=== PATIENT | female | born 1945 | race Caucasian/White ===

== ENCOUNTER 2017-12-27 15:25 | Inpatient (IN) | payer OTHER ==
--- OUTSIDE RECORDS SUMMARY | 2017-12-27 15:28 | XMS REPORT | Clinical Summary ---
:1945 Author Organization [facility] Address [address] [place] [address] Care Team Providers Name Role Phone Asaf Btaes MD Primary Care Provider Allergies Active Allergy Reactions Severity Noted Date Comments Hydrocodone Hives High 06/20/2013 itchy Morphine Rash Low 03/06/2017 Medications Medication Sig Dispensed Refills Start Date End Date Status pramipexole Take 1 mg by 0 Active (MIRAPEX) 1 MG mouth nightly. tablet rOPINIRole (REQUIP) TK 1 T PO QHS 3 12/27/2016 Active 0.5 MG tablet multivitamin Take 1 tablet 0 Active (THERAGRAN) tablet by mouth daily. diazePAM (VALIUM) 5 0 11/25/2017 Active MG tablet oxyCODone 0 11/25/2017 Active (ROXICODONE) 10 MG tablet venlafaxine XR 0 09/25/2017 Active (EFFEXOR-XR) 150 MG 24 hr capsule venlafaxine Take 100 mg by 0 Discontinued (EFFEXOR) 100 MG mouth daily. 8 tablet PNV NO.95/FERROUS Take 1 tablet 0 Discontinued FUM/FOLIC AC by mouth 8 ( daily. MULTIVITAMINS ORAL) ibuprofen Take 600 mg by 0 Discontinued (ADVIL,MOTRIN) 600 mouth 2 (two) 8 MG tablet times a day. traMADol (ULTRAM) Take 1 tablet 60 tablet 0 03/17/2017 50 mg tablet (50 mg total) 8 by mouth every 6 (six) hours as needed for moderate pain for up to 14 days. TiZANidine Take 1 capsule 60 capsule 0 03/17/2017 (ZANAFLEX) 4 MG (4 mg total) 8 capsule by mouth 3 (three) times a day as needed for muscle spasms for up to 30 days. Active Problems Problem Noted Date Cervical stenosis of spinal canal 03/16/2017 Encounters Date Type Specialty Care Team Description 11/30/2017 Abstract Orthopedic Surgery Saul Gallegos MD 11/29/2017 Hospital Encounter Radiology Robert Aguilar MD 11/29/2017 Hospital Encounter Radiology Robert Aguilar MD 11/29/2017 Office Visit Orthopedic Surgery Robert Aguilar Closed fracture of anatomical neck of left humerus, initial encounter (Primary Dx); MD Srikanth Other closed intra-articular fracture of distal end of left radius, initial encounter 11/06/2017 Office Visit Orthopedic Surgery Saul Gallegos MD 11/01/2017 Office Visit Orthopedic Surgery Saul Gallegos, Acute pain of left shoulder (Primary Dx); Incomplete tear of left rotator cuff 10/11/2017 Hospital Encounter Radiology Sussy Yang Neck pain MD Chi 10/11/2017 Transcribe Orders Access Sussy Yang Neck pain (Primary MD Chi Dx) 08/15/2017 Hospital Encounter Radiology Sussy Yang Cervical MD Chi radiculopathy 08/15/2017 Transcribe Orders Access Sussy Yang MD radiculopathy (Primary Dx) 06/14/2017 Hospital Encounter Radiology Sussy Yang Cervicalgia MD Chi 06/14/2017 Transcribe Orders Access Sussy Yang Cervicalgia (Primary MD Chi Dx) 05/02/2017 Hospital Encounter Radiology Sussy Yang MD radiculopathy 05/02/2017 Transcribe Orders Access Sussy Yang MD radiculopathy (Primary Dx) 04/03/2017 Hospital Encounter Radiology Sussy Yang Brachial neuritis MD [facility] 04/03/2017 Transcribe Orders Access Sussy Yang Brachial neuritis MD [facility] (Primary Dx) 03/17/2017 Patient Outreach Quality Katheryn Bolivar, NIC 03/16/2017 Surgery General Surgery Sussy Yang C4-C7 ANTERIOR MD Chi CERVICAL DISCECTOMY AND FUSION AND POSSIBLE C3-C7 W/ ALLOGRAFT, AUTOGRAFT 03/16/2017 Anesthesia Event General Surgery Jose De Jesus Forrester APRN 03/16/2017 - Hospital Encounter Neurosurgery Sussy Yang Cervical radiculopathy due to degenerative joint disease of spine; 03/17/2017 MD [facility] Cervical spinal stenosis 03/06/2017 Pre-Admit Testing Pre-Admission Sussy Yang Preop testing Appointment Testing MD Chi (Primary Dx) 02/28/2017 Hospital Encounter Radiology Sussy Yang Cervical radiculitis MD [facility] 02/28/2017 Transcribe Orders Access Sussy Yang Cervical radiculitis MD [facility] (Primary Dx) 02/23/2017 Hospital Encounter Radiology Sussy Yang Radiculopathy, MD [facility] cervical 02/20/2017 Transcribe Orders Access Sussy Yang RadiculopathChi douglass MD cervical (Primary Dx) after 12/26/2016 Family History Medical History Relation Name Comments Heart disease Father Cancer Mother pancreatic Relation Name Status Comments Father Mother Social History Tobacco Use Types Packs/Day Years Used Date Former Smoker Cigarettes 0.5 14 Quit: 1989 Smokeless Tobacco: Never Used Alcohol Use Drinks/Week oz/Week Comments Yes 7 Glasses of wine 4.2 Sex Assigned at Date Recorded Not on file Job Start Date Occupation Industry Not on file Not on file Not on file Travel History Travel Start Travel End No recent travel history available. Last Filed Vital Signs Vital Sign Reading Time Taken Blood Pressure 111/53 03/17/2017 8:26 AM SHIFT NURSE MANAGER Pulse 67 03/17/2017 8:26 AM SHIFT NURSE MANAGER Temperature 36.6 C (97.8 F) 03/17/2017 8:26 AM SHIFT NURSE MANAGER Respiratory Rate 18 03/17/2017 8:26 AM SHIFT NURSE MANAGER Oxygen Saturation 97% 03/17/2017 8:26 AM SHIFT NURSE MANAGER Inhaled Oxygen Concentration - - Weight 79.4 kg (175 lb) 11/29/2017 3:09 PM CDT Height 175.3 cm (5' 9") 11/29/2017 3:09 PM CDT Body Mass Index 25.84 11/29/2017 3:09 PM CDT Plan of Treatment Health Maintenance Due Date Last Done Comments BREAST CANCER SCREENING 02/16/1996 COLON CANCER SCREENING 02/16/1996 SHINGRIX VACCINE (1 of 2) 02/16/1996 ZOSTER VACCINE 2006 PNEUMOCOCCAL POLYSACCHARIDE VACCINE AGE 65 AND OVER 2011 PNEUMOCOCCAL-13 2011 INFLUENZA VACCINE 09/06/2017 Implants Implanted Type Area Formula Clerk Device Shelf Model / Identifier Expiration Serial / Lot Date Bone Matriz Osteocel Pro Small - [id number] - [id number] Human N/A: NUVASIVE 03/21/2021 [id number] / Implanted: Qty: 1 on 03/16/2017 by Sussy Yang MD Tissue N/A [id number] / Implants [id number] Bone Matriz Osteocel Pro Small - [id number] - [id number] Human N/A: NUVASIVE 03/21/2021 [id number] / Implanted: Qty: 1 on 03/16/2017 by Sussy Yang MD Tissue N/A [id number] / Implants [id number] Bone Matriz Osteocel Pro Small - [id number] - [id number] Human N/A: NUVASIVE 03/21/2021 [id number] / Implanted: Qty: 1 on 03/16/2017 by Sussy Yang MD Tissue N/A [id number] / Implants [id number] Distraction Pin- 12mm - [id number] IMPLANT N/A: NUVASIVE SPINE [id number] / Implanted: 03/16/2017 (Quantity not on file) DEVICES N/A / Contour Spacer Small 5mm - [id number] IMPLANT N/A: NUVASIVE SPINE [id number] / Implanted: 03/16/2017 (Quantity not on file) DEVICES N/A / Anterior Cervical Plating Nuvasive 3-Level Potosi Revolution Plate,50mm - [id number] IMPLANT N/A: NUVASIVE SPINE [id number] / Implanted: 03/16/2017 (Quantity not on file) DEVICES N/A / Contour Spacer Small 5mm - [id number] IMPLANT N/A: NUVASIVE SPINE [id number] / Implanted: 03/16/2017 (Quantity not on file) DEVICES N/A / Spacer Spinal Cntord Med 5mm - [id number] Spinal N/A: NUVASIVE [id number] / Implanted: 03/16/2017 (Quantity not on file) Implants N/A / Screw Spinal Sohail Slf-Tap 4x15mm Potosi Revolution Acp - [id number] Spinal N/A: NUVASIVE [id number] / Implanted: 03/16/2017 (Quantity not on file) Implants N/A / Screw Spinal Fxd Slf-Tap 4x15mm Potosi Revolution Acp - [id number] Spinal N/A: NUVASIVE [id number] / Implanted: 03/16/2017 (Quantity not on file) Implants N/A / Matrix Hmstc Floseal 10ml W/ Humn F2 - [id number] Surgical N/A: PARRY [id number] / Implanted: 03/16/2017 (Quantity not on file) Implants; N/A [employer] / Expanders; [id number] Extenders; Surgical Wires Matrix Hmstc Floseal 10ml W/ Humn F2 - [id number] Surgical N/A: PARRY [id number] / Implanted: 03/16/2017 (Quantity not on file) Implants; N/A [employer] / Expanders; [id number] Extenders; Surgical Wires Procedures Procedure Name Priority Date/Time Associated Diagnosis Comments XR SHOULDER 2+ VW Routine 11/29/2017 3:14 Acute pain of left Results for this LEFT PM CDT shoulder procedure are in the results section. XR UPPER EXTREMITY Routine 11/25/2017 3:42 Results for this EXTERNAL STUDY PM CDT procedure are in the results section. XR CHEST EXTERNAL Routine 11/25/2017 3:42 Results for this STUDY PM CDT procedure are in the results section. MRI SHOULDER WO Routine 11/03/2017 10:44 Acute pain of left Results for this CONTRAST LEFT AM CDT shoulder procedure are in the results section. XR CERVICAL SPINE Routine 10/11/2017 1:43 Neck pain Results for this COMPLETE W FLEX EXT PM CDT procedure are in the results section. XR CERVICAL SPINE 1 Routine 08/15/2017 12:10 Cervical Results for this VW PM CDT radiculopathy procedure are in the results section. XR CERVICAL SPINE 1 Routine 06/14/2017 11:02 Cervicalgia Results for this VW AM CDT procedure are in the results section. XR CERVICAL SPINE 1 Routine 05/02/2017 3:13 Cervical Results for this VW PM CDT radiculopathy procedure are in the results section. XR CERVICAL SPINE 1 Routine 04/03/2017 11:11 Brachial neuritis Results for this VW AM SHIFT NURSE MANAGER procedure are in the results section. SURGICAL PATHOLOGY Routine 03/16/2017 2:00 Results for this REQUEST PM SHIFT NURSE MANAGER procedure are in the results section. XR CERVICAL SPINE 1 Routine 03/16/2017 11:15 Results for this VW AM SHIFT NURSE MANAGER procedure are in the results section. XR CERVICAL SPINE 1 Routine 03/16/2017 8:52 Results for this VW AM SHIFT NURSE MANAGER procedure are in the results section. XR CERVICAL SPINE 1 Routine 03/16/2017 8:30 Results for this VW AM SHIFT NURSE MANAGER procedure are in the results section. WY AN ELECTIVE Routine 03/16/2017 8:12 ENDOTRACHEAL AIRWAY AM SHIFT NURSE MANAGER Procedure Note - Evangelina Clarke CRNA - 03/16/2017 8:11 AM SHIFT NURSE MANAGER Airway Date/Time: 03/16/2017 7:44 AM Performed by: EVANGELINA CLARKE Authorized by: PELON WANG Location: OR Urgency: Elective Resident/STORE ADMINISTRATOR/AA: EVANGELINA CLARKE Preoxygenated with 100% O2: Yes C-spine Precautions Maintained Throughout: Yes Mask Ventilation: Easy mask Final Airway Type: Endotracheal airway Final Endotracheal Airway: ETT Technique Used: Video laryngoscopy Insertion Site: Oral Blade Type: Kurt Laryngoscope Blade/Videolaryngoscope Blade Size: 3 ETT Size (mm): 7.0 Measured from: Lips ETT to Lips (cm): 21 Placement Verified by: CO2 detection, direct visualization and equal breath sounds Laryngoscopic view: Grade I - full view of glottis (with glidescope) Rapid Sequence Induction (RSI): No Modified RSI: No Number of Attempts at Approach: 1 Atraumatic laryngoscopy and intubation, teeth and lips as they were prior to intubation; glidescope used, no hyperextension of neck DISCECTOMY, CERVICAL, WITH 03/16/2017 8:00 AM SHIFT NURSE MANAGER Cervical radiculopathy due to FUSION, ANTERIOR APPROACH degenerative joint disease of spine Cervical spinal stenosis Case Notes SUPINE POSITION, REGUALR OR BED REVERSED, MICROSCOPE,NUVASIVE HELIX R ANTERIOR PLATE, PEEK SMALL CONTOURED CAGE Special Needs SUPINE POSITION, REGUALR OR BED REVERSED, MICROSCOPE,NUVASIVE HELIX R ANTERIOR PLATE, PEEK SMALL CONTOURED CAGE ECG 12-LEAD Routine 03/06/2017 1:58 Preop testing Results for this PM SHIFT NURSE MANAGER procedure are in the results section. ZZESTIMATED GFR Routine 03/06/2017 1:50 Results for this PM SHIFT NURSE MANAGER procedure are in the results section. PARTIAL THROMBOPLASTIN Routine 03/06/2017 1:50 Preop testing Results for this TIME (PTT) PM SHIFT NURSE MANAGER procedure are in the results section. PROTHROMBIN TIME WITH Routine 03/06/2017 1:50 Preop testing Results for this INR PM SHIFT NURSE MANAGER procedure are in the results section. BASIC METABOLIC PANEL Routine 03/06/2017 1:50 Preop testing Results for this PM SHIFT NURSE MANAGER procedure are in the results section. HC COMPLETE BLD COUNT Routine 03/06/2017 1:50 Preop testing Results for this W/AUTO DIFF PM SHIFT NURSE MANAGER procedure are in the results section. XR CERVICAL SPINE Routine 02/28/2017 2:47 Cervical Results for this COMPLETE W FLEX EXT PM SHIFT NURSE MANAGER radiculitis procedure are in the results section. MRI CERVICAL SPINE WO Routine 02/23/2017 9:42 Radiculopathy, Results for this CONTRAST AM SHIFT NURSE MANAGER cervical procedure are in the results section. after 12/26/2016 Results XR Shoulder 2+ Vw Left (11/29/2017 3:14 PM CDT) Narrative Performed At Left shoulder Grashey view demonstrates pseudoparalysis with inferior [facility] subluxation of the proximal humerus and comminuted anatomical neck fracture. Anterior angulation of fracture. Humeral Head located the glenoid. Performing Organization Address [facility] Phone Number [facility] [address] [place] [address] XR Upper Extremity External Study (11/25/2017 3:42 PM CDT) Narrative Performed At This exam was not acquired at a [facility] facility and has not been [facility] interpreted by a [facility] Provider.The exam was imported into our imaging system for comparisons purposes. Performing Organization Address [facility] Phone Number [facility] [address] [place] [address] XR Chest External Study (11/25/2017 3:42 PM CDT) Narrative Performed At This exam was not acquired at a [facility] facility and has not been [facility] interpreted by a [facility] Provider.The exam was imported into our imaging system for comparisons purposes. Performing Organization Address [facility] Phone Number [facility] [address] [place] [address] MRI Shoulder Wo Contrast Left (11/03/2017 10:44 AM CDT) Narrative Performed At EXAMINATION:MRI SHOULDER WO CONTRAST LEFT [facility] CLINICAL HISTORY:M25.512 Pain in left shoulder, Shoulder paininitial exam TECHNIQUE:Multiplanar multisequence MR imaging of the leftshoulder was performed without contrast. COMPARISON:X-ray, 11/01/2017 IMPRESSION: ROTATOR CUFF: Bursal sided low-grade partial tearing at the posterior margin supraspinatus and overlapping anterior margin infraspinatus, overall measuring 12.5 mm sagittal with retraction up to 8 mm. This involves less than 50% of tendon thickness. There is no muscular atrophy. Mild supraspinatus tendinosis anteriorly. Teres minor well maintained. Subscapularis well-maintained. LABRUM: Degenerative fraying of the superior and anterior labrum. No displaced tear identified. BICEPS TENDON: The long head of the biceps tendon is within the bicipital groove. The biceps labral complex is intact. GLENOHUMERAL JOINT: Alignment is well maintained.No focal cartilage defects identified. BONE MARROW: Well maintained. AC JOINT: Hypertrophy of AC joint degenerative in etiology. Acromion has a downward lateral slope and is type II morphology. SOFT TISSUES: No joint effusion. Small amount of fluid and heterogeneous signal anteriorly in the subacromial-subdeltoid bursa may indicate mild bursitis. SUMMARY: 1. Bursal sided low-grade partial tear at the posterior margin supraspinatus and anterior margin infraspinatus, though no muscular atrophy. Lateral downsloping acromion with mild subacromial-subdelt oid bursitis, can be correlated with clinical evidence for external impingement. [facility]-[id number] Procedure Note [facility], Radiology Results Incoming - 11/03/2017 11:46 AM CDT EXAMINATION: MRI SHOULDER WO CONTRAST LEFT CLINICAL HISTORY: M25.512 Pain in left shoulder, Shoulder pain initial exam TECHNIQUE: Multiplanar multisequence MR imaging of the left shoulder was performed without contrast. COMPARISON: X-ray, 11/01/2017 IMPRESSION: ROTATOR CUFF: Bursal sided low-grade partial tearing at the posterior margin supraspinatus and overlapping anterior margin infraspinatus, overall measuring 12.5 mm sagittal with retraction up to 8 mm. This involves less than 50% of tendon thickness. There is no muscular atrophy. Mild supraspinatus tendinosis anteriorly. Teres minor well maintained. Subscapularis well-maintained. LABRUM: Degenerative fraying of the superior and anterior labrum. No displaced tear identified. BICEPS TENDON: The long head of the biceps tendon is within the bicipital groove. The biceps labral complex is intact. GLENOHUMERAL JOINT: Alignment is well maintained. No focal cartilage defects identified. BONE MARROW: Well maintained. AC JOINT: Hypertrophy of AC joint degenerative in etiology. Acromion has a downward lateral slope and is type II morphology. SOFT TISSUES: No joint effusion. Small amount of fluid and heterogeneous signal anteriorly in the subacromial-subdeltoid bursa may indicate mild bursitis. SUMMARY: 1. Bursal sided low-grade partial tear at the posterior margin supraspinatus and anterior margin infraspinatus, though no muscular atrophy. Lateral downsloping acromion with mild subacromial-subdeltoid bursitis, can be correlated with clinical evidence for external impingement. [facility]-[id number] Performing Organization Address City/State/Zipcode Phone Number [facility] [address] [place] [address] XR Cervical Spine Complete w flex/ext (10/11/2017 1:43 PM CDT)Only the most recent of2 resultswithin the time period is included. Narrative Performed At EXAMINATION:XR CERVICAL SPINE COMPLETE W FLEX EXT [facility] CLINICAL HISTORY:M54.2 Cervicalgia, Neck painchronicmechanical COMPARISON: Cervical spine x-rays from August 15, 2017. TECHNIQUE: Total of 7 radiographs of cervical spine were obtained including lateral neutral, flexion, and extension views as well as 2 oblique views,, frontal, and odontoid view. IMPRESSION: Patient is status post ACDF with anterior plating C4-C7. No evidence of osteolytic changes surrounding the hardware. Spinal alignment is stable with anterolisthesis of C2-C3 and C3-C4. No dynamic instability. No fractures. There are scattered spondylotic changes noted including anterior osteophytes on C3. Vertebral heights are preserved. There is straightening of the cervical lordosis. All 7 cervical vertebrae visualized. No prevertebral soft tissue swelling. Bilateral neural foraminal narrowing at C4-C5 C5-C6 and C6-C7. I personally reviewed the images and the resident's findings and agree with the final report. [id number] Procedure Note Interface, Radiology Results Incoming - 10/11/2017 3:05 PM CDT EXAMINATION: XR CERVICAL SPINE COMPLETE W FLEX EXT CLINICAL HISTORY: M54.2 Cervicalgia, Neck pain chronic mechanical COMPARISON: Cervical spine x-rays from August 15, 2017. TECHNIQUE: Total of 7 radiographs of cervical spine were obtained including lateral neutral, flexion, and extension views as well as 2 oblique views,, frontal, and odontoid view. IMPRESSION: Patient is status post ACDF with anterior plating C4-C7. No evidence of osteolytic changes surrounding the hardware. Spinal alignment is stable with anterolisthesis of C2-C3 and C3-C4. No dynamic instability. No fractures. There are scattered spondylotic changes noted including anterior osteophytes on C3. Vertebral heights are preserved. There is straightening of the cervical lordosis. All 7 cervical vertebrae visualized. No prevertebral soft tissue swelling. Bilateral neural foraminal narrowing at C4-C5 C5-C6 and C6-C7. I personally reviewed the images and the resident's findings and agree with the final report. [id number] Performing Organization Address City/State/Zipcode Phone Number [facility] [address] [place] [address] XR Cervical Spine 1 Vw (08/15/2017 12:10 PM CDT)Only the most recent of7 resultswithin the time period is included. Narrative Performed At EXAMINATION: XR CERVICAL SPINE 1 VW [facility] CLINICAL HISTORY: M54.12 Radiculopathycervical region, m54.12 COMPARISON:Cervical spine x-rays from June 14, 2017 Findings: There is relatively stable anterior fusion from C4 to C7. No acute findings are seen in the bone surrounding the hardware or graft material. If indicated this can be further evaluated with a CT. The vertebral body and disc space height and alignment and degenerative changes are relatively stable. There is poor visualization below the lower C7 level. There is anterolisthesis at C2-3 and C3-4 which is stable. There is anterior subluxation at C1-2 and degenerative changes of the atlantoaxial joint space which is stable. IMPRESSION: No significant changes compared to prior exam. [facility]-[id number] Procedure Note Interface, Radiology Results Incoming - 08/15/2017 3:15 PM CDT EXAMINATION: XR CERVICAL SPINE 1 VW CLINICAL HISTORY: M54.12 Radiculopathy cervical region, m54.12 COMPARISON: Cervical spine x-rays from June 14, 2017 Findings: There is relatively stable anterior fusion from C4 to C7. No acute findings are seen in the bone surrounding the hardware or graft material. If indicated this can be further evaluated with a CT. The vertebral body and disc space height and alignment and degenerative changes are relatively stable. There is poor visualization below the lower C7 level. There is anterolisthesis at C2-3 and C3-4 which is stable. There is anterior subluxation at C1-2 and degenerative changes of the atlantoaxial joint space which is stable. IMPRESSION: No significant changes compared to prior exam. [facility]-[id number] Performing Organization Address City/[facility]/Zipcode Phone Number [facility] [address] [place] [address] Surgical pathology request (03/16/2017 2:00 PM SHIFT NURSE MANAGER) [facility] DEPARTMENT OF PATHOLOGY AND GENOMIC MEDICINE Surgical pathology report See link below for PDF [facility] DEPARTMENT OF Lab Report PATHOLOGY AND GENOMIC MEDICINE Result status This is Final Report to [facility] DEPARTMENT OF [id number] PATHOLOGY AND GENOMIC MEDICINE Performing Organization Address [facility] Phone Number [facility] DEPARTMENT OF PATHOLOGY AND [address] [place] [address] [facility] ECG 12 lead (03/06/2017 1:58 PM SHIFT NURSE MANAGER) Ventricular rate 67 [facility] MUSE Atrial rate 67 [facility] MUSE WY interval 142 [facility] MUSE QRSD interval 108 [facility] MUSE QT interval 436 [facility] MUSE QTC interval 460 [facility] MUSE P axis 1 58 [facility] MUSE QRS axis 1 -12 [facility] MUSE T wave axis 63 [facility] MUSE EKG impression Normal sinus rhythm-Incomplete right bundle [facility] MUSE branch block-Borderline ECG-In automated comparison with ECG of 24-JUL-2012 16:18,-No significant change was found- Performing Organization Address [facility] Phone Number [facility] MUSE [address] [place] [address] Estimated GFR (03/06/2017 1:50 PM SHIFT NURSE MANAGER) GFR Non Af Amer 82 mL/min/1.73 m2 [facility] DEPARTMENT OF PATHOLOGY AND GENOMIC MEDICINE GFR Af Amer >90 mL/min/1.73 m2 [facility] DEPARTMENT OF Comment: PATHOLOGY AND GENOMIC Chronic kidney disease: <60 mL/min/1.73m2 MEDICINE Kidney failure: <15 mL/min/1.73m2 The estimated GFR is calculated from the IDMS-traceable Modification of Diet in Renal Disease Equation. The accuracy of the calculation is poor when the creatinine is normal. Calculated values >90 mL/min/1.73m2 are not reported. This equation has not been validated in children (<18 years), women, the elderly (>70 years), or ethnic groups other than Caucasians and Americans. Specimen Plasma specimen Performing Organization Address City/[facility] Phone Number [facility] DEPARTMENT OF PATHOLOGY AND [address] [place] [address] Partial thromboplastin time, activated (03/06/2017 1:50 PM SHIFT NURSE MANAGER) PTT 25.6 23.0 - 36.0 sec [facility] DEPARTMENT OF PATHOLOGY Comment: AND [facility] PTT therapeutic range for unfractionated heparin is 61.0-112.0 seconds which corresponds to Anti-Xa 0.3-0.7 U/ml. Specimen Blood Performing Organization Address [facility] Phone Number [facility] DEPARTMENT OF PATHOLOGY AND [address] [place] [address] Prothrombin time with INR (03/06/2017 1:50 PM SHIFT NURSE MANAGER) Prothrombin time 12.9 12.0 - 15.0 sec [facility] DEPARTMENT OF PATHOLOGY AND GENOMIC MEDICINE INR 1.0 [facility] DEPARTMENT OF Comment: PATHOLOGY AND GENOMIC The International Normalized Ratio (INR) is a therapeutic MEDICINE monitoring tool for patients who are stable on oral anticoagulant therapy. An INR of 2.0-3.0 is suggested for deep vein thrombosis/pulmonary embolism. Specimen Blood Performing Organization Address [facility] Phone Number [facility] DEPARTMENT OF PATHOLOGY AND [address] [place] [address] CBC with platelet and differential (03/06/2017 1:50 PM SHIFT NURSE MANAGER) WBC 5.22 4.50 - 11.00 k/uL [facility] DEPARTMENT OF PATHOLOGY AND GENOMIC MEDICINE RBC 5.09 4.20 - 5.50 m/uL [facility] DEPARTMENT OF PATHOLOGY AND GENOMIC MEDICINE HGB 14.8 12.0 - 16.0 g/dL [facility] DEPARTMENT OF PATHOLOGY AND GENOMIC MEDICINE HCT 45.5 37.0 - 47.0 % [facility] DEPARTMENT OF PATHOLOGY AND GENOMIC MEDICINE MCV 89.4 82.0 - 100.0 fL [facility] DEPARTMENT OF PATHOLOGY AND GENOMIC MEDICINE MCH 29.1 27.0 - 34.0 pg [facility] DEPARTMENT OF PATHOLOGY AND GENOMIC MEDICINE MCHC 32.5 31.0 - 37.0 g/dL [facility] DEPARTMENT OF PATHOLOGY AND GENOMIC MEDICINE RDW - SD 42.0 37.0 - 55.0 fL [facility] DEPARTMENT OF PATHOLOGY AND GENOMIC MEDICINE MPV 10.6 8.8 - 13.2 fL [facility] DEPARTMENT OF PATHOLOGY AND GENOMIC MEDICINE Platelet count 207 150 - 400 k/uL [facility] DEPARTMENT OF PATHOLOGY AND GENOMIC MEDICINE Nucleated RBC 0.00 /100 WBC [facility] DEPARTMENT OF PATHOLOGY AND GENOMIC MEDICINE Neutrophils 65.4 39.0 - 69.0 % [facility] DEPARTMENT OF PATHOLOGY AND GENOMIC MEDICINE Lymphocytes 25.9 25.0 - 45.0 % [facility] DEPARTMENT OF PATHOLOGY AND GENOMIC MEDICINE Monocytes 7.3 0.0 - 10.0 % [facility] DEPARTMENT OF PATHOLOGY AND GENOMIC MEDICINE Eosinophils 0.6 0.0 - 5.0 % [facility] DEPARTMENT OF PATHOLOGY AND GENOMIC MEDICINE Basophils 0.6 0.0 - 1.0 % [facility] DEPARTMENT OF PATHOLOGY AND GENOMIC MEDICINE Immature granulocytes 0.2Comment: 0.0 - 1.0 % [facility] DEPARTMENT OF "Immature PATHOLOGY AND GENOMIC granulocytes" MEDICINE (promyelocytes, myelocytes, metamyelocytes) Specimen Blood Performing Organization Address City/[facility] Phone Number [facility] DEPARTMENT OF PATHOLOGY AND [address] [place] [id number] [employer] MEDICINE Basic metabolic panel (03/06/2017 1:50 PM SHIFT NURSE MANAGER) Sodium 144 135 - 148 mEq/L [facility] DEPARTMENT OF PATHOLOGY AND GENOMIC MEDICINE Potassium 4.3 3.5 - 5.0 mEq/L [facility] DEPARTMENT OF PATHOLOGY AND GENOMIC MEDICINE Chloride 103 98 - 112 mEq/L [facility] DEPARTMENT OF PATHOLOGY AND GENOMIC MEDICINE CO2 30 24 - 31 mEq/L [facility] DEPARTMENT OF PATHOLOGY AND GENOMIC MEDICINE Anion gap 11 7 - 15 mEq/L [facility] DEPARTMENT OF PATHOLOGY Comment: AND GENOMIC MEDICINE Starting from May , anion gap calculation no longer incorporates potassium. Please note the change. BUN 16 8 - 23 mg/dL [facility] DEPARTMENT OF PATHOLOGY AND GENOMIC MEDICINE Creatinine 0.7 0.5 - 0.9 mg/dL [facility] DEPARTMENT OF PATHOLOGY AND GENOMIC MEDICINE Glucose 143 (H) 65 - 99 mg/dL [facility] DEPARTMENT OF PATHOLOGY AND GENOMIC MEDICINE Calcium 9.9 8.8 - 10.2 mg/dL [facility] DEPARTMENT OF PATHOLOGY AND GENOMIC MEDICINE Specimen Plasma specimen Performing Organization Address City/[facility] Phone Number [facility] DEPARTMENT OF PATHOLOGY AND [address] [place] [address] GENOMIC MEDICINE MRI Cervical Spine Wo Contrast (02/23/2017 9:42 AM SHIFT NURSE MANAGER) Narrative Performed At EXAMINATION: MRI CERVICAL SPINE WO CONTRAST HM [facility]IANT CLINICAL HISTORY: M54.12 Radiculopathycervical region, m54.12 COMPARISON:None TECHNIQUE: Multiplanar multisequence noncontrast enhanced examination was performed of the cervical spine. FINDINGS: The craniovertebral junction is unremarkable. There is decreased T2 signal intensity in the discs throughout the cervical region. There is straightening of the upper cervical lordosis. C2-3: There is minimal dorsal spondylosis. There is mild ligamentum flavum hypertrophy touching the posterior cord. There are facet and uncovertebral joint hypertrophic changes. There appears to be mild right foramen stenosis on the axial T2 images. Artifacts obscure some of the axial images. C3-4: There is 3.5 mm anterolisthesis. There is inward concavity of the endplates with greater anterior and posterior disc space narrowing. There is dorsal spondylosis with uncovered disc and central pr otrusion indenting the anterior subarachnoid space. There is ligamentum flavum hypertrophy. There is mild to moderate narrowing of the AP dimension of the central subarachnoid space. There are facet and uncovertebral joint hypertrophic changes with severe foramen stenosis greater on the left. C4-5: There is severe disc space narrowing with surrounding endplate degenerative changes and inward cavity of endplates. There is dorsal spondylosis with slight flattening of the anterior cord. There is ligamentum flavum hypertrophy with slight flattening of the posterior cord. There is moderate central canal stenosis. There are facet and uncovertebral joint hypertrophic changes with severe foramen stenosis. C5-6: There is severe disc space narrowing with surrounding endplate degenerative changes. There is dorsal spondylosis indenting the anterior cord. There is mass effect on the ventrolateral subarachnoid space greater on the right in the region of the ventral nerve roots. There is ligamentum flavum hypertrophy indenting the posterior cord.There is moderate central canal stenosis. There is severe foramen stenosis from facet and uncovertebral joint hypertrophic changes. C6-7: There is severe disc space narrowing.There is spondylosis indenting the anterior cord. There is mass effect on the ventrolateral subarachnoid space in the region of the nerve roots. There are posterior element hypertrophic changes flattening the posterior cord.There is moderate narrowing of the AP dimension of the central subarachnoid space. There is severe foramen stenosis from facet and uncovertebral joint hypertrophic changes. C7-T1: There is no significant canal or foramen stenosis from degenerative change. The sagittal images show minimal anterolisthesis at T1-2 and mild anterolisthesis at T2-3. There is bulge or central protrusion at T2-3 and T3-4 with mild anterior indentation on the subarachnoid space. The axial images show moderate right and mild left T1-2 foramen stenosis from facet hypertrophy. The study was not performed for proper imaging of soft tissue structures in the neck and chest. No definite incidental thyroid gland mass is seen. The vertebral arteries are approximately equal in size in the cervical region. IMPRESSION: Degenerative changes with canal stenosis, more prominent at C4-5, C5-6 and C6- 7. Multilevel mass effect on the nerve roots in the subarachnoid space and foramen stenosis more prominent in the mid to lower cervical region. [facility]-[id number] Procedure Note Hm Interface, Radiology Results Incoming - 02/23/2017 11:57 AM SHIFT NURSE MANAGER EXAMINATION: MRI CERVICAL SPINE WO CONTRAST CLINICAL HISTORY: M54.12 Radiculopathy cervical region, m54.12 COMPARISON: None TECHNIQUE: Multiplanar multisequence noncontrast enhanced examination was performed of the cervical spine. FINDINGS: The craniovertebral junction is unremarkable. There is decreased T2 signal intensity in the discs throughout the cervical region. There is straightening of the upper cervical lordosis. C2-3: There is minimal dorsal spondylosis. There is mild ligamentum flavum hypertrophy touching the posterior cord. There are facet and uncovertebral joint hypertrophic changes. There appears to be mild right foramen stenosis on the axial T2 images. Artifacts obscure some of the axial images. C3-4: There is 3.5 mm anterolisthesis. There is inward concavity of the endplates with greater anterior and posterior disc space narrowing. There is dorsal spondylosis with uncovered disc and central protrusion indenting the anterior subarachnoid space. There is ligamentum flavum hypertrophy. There is mild to moderate narrowing of the AP dimension of the central subarachnoid space. There are facet and uncovertebral joint hypertrophic changes with severe foramen stenosis greater on the left. C4-5: There is severe disc space narrowing with surrounding endplate degenerative changes and inward cavity of endplates. There is dorsal spondylosis with slight flattening of the anterior cord. There is ligamentum flavum hypertrophy with slight flattening of the posterior cord. There is moderate central canal stenosis. There are facet and uncovertebral joint hypertrophic changes with severe foramen stenosis. C5-6: There is severe disc space narrowing with surrounding endplate degenerative changes. There is dorsal spondylosis indenting the anterior cord. There is mass effect on the ventrolateral subarachnoid space greater on the right in the region of the ventral nerve roots. There is ligamentum flavum hypertrophy indenting the posterior cord. There is moderate central canal stenosis. There is severe foramen stenosis from facet and uncovertebral joint hypertrophic changes. C6-7: There is severe disc space narrowing. There is spondylosis indenting the anterior cord. There is mass effect on the ventrolateral subarachnoid space in the region of the nerve roots. There are posterior element hypertrophic changes flattening the posterior cord. There is moderate narrowing of the AP dimension of the central subarachnoid space. There is severe foramen stenosis from facet and uncovertebral joint hypertrophic changes. C7-T1: There is no significant canal or foramen stenosis from degenerative change. The sagittal images show minimal anterolisthesis at T1-2 and mild anterolisthesis at T2-3. There is bulge or central protrusion at T2-3 and T3-4 with mild anterior indentation on the subarachnoid space. The axial images show moderate right and mild left T1-2 foramen stenosis from facet hypertrophy. The study was not performed for proper imaging of soft tissue structures in the neck and chest. No definite incidental thyroid gland mass is seen. The vertebral arteries are approximately equal in size in the cervical region. IMPRESSION: Degenerative changes with canal stenosis, more prominent at C4-5, C5-6 and C6- 7. Multilevel mass effect on the nerve roots in the subarachnoid space and foramen stenosis more prominent in the mid to lower cervical region. [facility]-[id number] [facility] Organization Address City/State/Zipcode Phone Number [facility] [address] [place] [address] after 12/26/2016 Insurance Payer Benefit Plan / Group Subscriber ID Type Phone Address AETNA MEDICARE AETNA MEDICARE HMO/PPO [facility] xxxxxxxx HMO Advance Directives Patient has advance care planning documents on file. For more information, please contact:[facility] [place] [address]
--- NOTE | 2017-12-27 16:32 | ER ---
Nurse's Notes [facility] Name: Kim Mera Age: 72 yrs Sex: Female : 1945 Arrival Date: 12/27/2017 Time: 15:29 Bed 24 Private MD: Cele Okeefe C Diagnosis: Chest pain, unspecified;Nausea;Hypokalemia Presentation: 12/27 15:36 Presenting complaint: Patient states: "I went to my doctor about my broken arm, I've aj1 been having pain from my breast bone across my left side to my arm. I asked if that pain was because of my arm because it usually happens when I exert myself. This morning when I was walking I had this pain and I felt like I was going to faint and I've been nauseous. My doctor said I should come to the emergency room." Reports substernal chest pain that radiates to left breast and up to left shoulder. Reports SOB, dizziness. Denies palpitations. Transition of care: patient was not received from another setting of care. Onset of symptoms was December 27, 2017. Risk Assessment: Do you want to hurt yourself or someone else? Patient reports no desire to harm self or others. Initial Sepsis Screen: Does the patient meet any 2 criteria? Yes Does the patient have a suspected source of infection? No. Patient's initial sepsis screen is negative. Care prior to arrival: None. 15:36 Method Of Arrival: Ambulatory [facility] 15:36 Acuity: JUAN 3 aj1 Triage Assessment: 15:40 General: Appears in no apparent distress. uncomfortable, Behavior is calm, cooperative, aj1 appropriate for age. Pain: Complains of pain in mid-sternal area Pain radiates to anterior aspect of left upper chest, left breast, anterior aspect of left shoulder and posterior aspect of left shoulder Pain currently is 6 out of 10 on a pain scale. Neuro: Level of Consciousness is awake, alert, obeys commands. Cardiovascular: Reports chest pain, lightheadedness, shortness of breath, Patient's skin is warm and dry. Respiratory: Airway is patent Respiratory effort is even, unlabored, Respiratory pattern is regular, symmetrical. Historical: - Allergies: 15:40 Morphine; aj1 - Home Meds: 15:40 Effexor Oral [Active]; Multiple Vitamins Oral tab daily [Active]; Requip 0.5 mg Oral aj1 tab 3 tabs nightly [Active]; Tramadol Oral [Active]; - PMHx: 15:40 Arthritis; Firbomyalgia; High Cholesterol; restless leg syndrome; aj1 - Immunization history:: Flu vaccine is not up to date. - Social history:: Smoking status: Patient/guardian denies using tobacco. - Ebola Screening: : Patient denies travel to an Ebola-affected area in the 21 days before illness onset. - Family history:: not pertinent. Screenin:31 Abuse screen: Denies threats or abuse. Denies injuries from another. Nutritional kr2 screening: No deficits noted. Tuberculosis screening: No symptoms or risk factors identified. Fall Risk Fall in past 12 months (25 points). Assessment: 16:00 General: Appears in no apparent distress. uncomfortable, well groomed, well developed, kr2 well nourished, Behavior is calm, cooperative, appropriate for age. Pain: Complains of pain in chest and left arm and anterior aspect of left upper chest Pain radiates to left arm and posterior aspect of left shoulder and anterior aspect of left shoulder Pain currently is 5 out of 10 on a pain scale. Quality of pain is described as sharp, shooting, Pain began 2 hours ago. Is continuous, Alleviated by nothing. Aggravated by increased activity. Neuro: Level of Consciousness is awake, alert, obeys commands, Oriented to person, place, time, situation, Appropriate for age. Cardiovascular: Capillary refill < 3 seconds in bilateral fingers Patient's skin is warm and dry. Rhythm is sinus rhythm. Respiratory: Airway is patent Respiratory effort is even, unlabored, Respiratory pattern is regular, symmetrical. GI: Abdomen is flat, non-distended, Bowel sounds present X 4 quads. Abd is soft and non tender X 4 quads. Reports nausea, Patient currently denies vomiting. : Urine is clear. EENT: Oral mucosa is moist. Derm: Skin is healthy with good turgor, Skin is pink, warm \\T\\ dry. Musculoskeletal: Patient had surgery on her wrist in November, reports her "arm is shattered." Sling in place to left arm, swelling noted to left hand. States she just left ortho office and they told her to come here for chest pain. "He said the pain I am having is not related to my arm, I thought it was". 17:00 Reassessment: Patient appears in no apparent distress at this time. Patient and/or kr2 family updated on plan of care and expected duration. Pain level reassessed. Patient is alert, oriented x 3, equal unlabored respirations, skin warm/dry/pink. Patient states feeling better. 18:00 Reassessment: Patient appears in no apparent distress at this time. Patient and/or kr2 family updated on plan of care and expected duration. Pain level reassessed. Patient is alert, oriented x 3, equal unlabored respirations, skin warm/dry/pink. Patient states feeling better. 19:00 Reassessment: Patient appears in no apparent distress at this time. Patient and/or kr2 family updated on plan of care and expected duration. Pain level reassessed. Patient is alert, oriented x 3, equal unlabored respirations, skin warm/dry/pink. Patient states feeling better. 20:02 Reassessment: Patient appears in no apparent distress at this time. Patient and/or kr2 family updated on plan of care and expected duration. Pain level reassessed. Patient is alert, oriented x 3, equal unlabored respirations, skin warm/dry/pink. Patient states feeling better. Vital Signs: 15:40 BP 143 / 76; Pulse 77; Resp 18; Temp 97.4; Pulse Ox 100% on R/A; Weight 78.02 kg (R); aj1 Height 5 ft. 9 in. (175.26 cm) (R); Pain 6/10; 16:30 BP 144 / 77; Pulse 76; Resp 17; Pulse Ox 100% ; kr2 17:00 BP 122 / 77; Pulse 76; Resp 16; Pulse Ox 99% on R/A; kr2 19:28 BP 108 / 60; Pulse 64; Resp 18; Pulse Ox 99% on R/A; kr2 15:40 Body Mass Index 25.40 (78.02 kg, 175.26 cm) aj1 ED Course: 15:29 Patient arrived in ED. mr 15:30 Cele Okeefe MD is Private Physician. mr 15:39 Triage completed. aj1 15:40 Arm band placed on Patient placed in an exam room. aj1 15:56 Colt Kahn MD is Attending Physician. ruben 16:00 Patient has correct armband on for positive identification. Bed in low position. Call kr2 light in reach. Side rails up X 1. school lunch monitor on. Pulse ox on. NIBP on. Door closed. Warm blanket given. Pillow given. Head of bed elevated. 16:00 Patient maintains SpO2 saturation greater than 95% on room air. kr2 16:10 Inserted saline lock: 22 gauge in right antecubital area, using aseptic technique. kr2 Blood collected. 16:18 X-ray completed. Portable x-ray completed in exam room. Patient tolerated procedure kw well. 16:20 XRAY Chest (1 view) In Process Unspecified. EDMS 16:25 EKG done, by biometric technician. reviewed by Colt Kahn MD. 3 16:31 Cele Okeefe MD is Hospitalizing Provider. [facility] 16:45 Notified ED physician of a critical lab result(s). D-dimer=1,031. iw 17:38 Note: ct on hold, patient needed nausea medication, dr okeefe in room talking with vr patient at this time. 17:[address] nj 17:48 CT completed. Patient tolerated procedure well. Patient moved back from CT. nj 19:26 Racquel Balderrama, RN is Primary Nurse. kr2 20:00 No provider procedures requiring assistance completed. Patient admitted, IV remains in kr2 place. Administered Medications: 16:42 Drug: Aspirin 162 mg Route: PO; kr2 19:22 Follow up: Response: No adverse reaction kr2 16:42 Drug: Lopressor 25 mg Route: PO; kr2 19:22 Follow up: Response: No adverse reaction kr2 16:42 Drug: Zofran 4 mg Route: IVP; Site: right antecubital; kr2 17:00 Follow up: Response: No adverse reaction; Nausea is decreased kr2 17:00 Drug: Lovenox 1 mg/kg Route: Sub-Q; Site: right lower abdomen; kr2 19:22 Follow up: Response: No adverse reaction kr2 17:45 Drug: Zofran 4 mg Route: IVP; Site: right antecubital; kr2 18:00 Follow up: Response: No adverse reaction; Nausea is decreased kr2 19:05 Drug: Potassium Effervescent Tablet 25 mEq Route: PO; kr2 19:27 Follow up: Response: No adverse reaction kr2 Outcome: 16:32 Decision to Hospitalize by Provider. [facility] 20:01 Admitted to Tele accompanied by tech, family with patient, via wheelchair, room 421, kr2 with chart, Report called to NIC De Jesus 20:01 Condition: stable 20:01 Instructed on the need for admit, Demonstrated understanding of instructions. 20:02 Patient left the ED. kr2 Signatures: Dispatcher [employer] EDRadha Gastelum RN RN aj1 Colt Kahn MD MD cha Rivera, Naina mr Neva Jimenez, RN Paige Winn Kimberlee kw Jordan, Nathan nj Reaves, Karey, RN RN kr2 Melissa Loya3 Corrections: (The following items were deleted from the chart) 19:30 16:00 GI: Abdomen is flat, non-distended, Bowel sounds present X 4 quads. Abd is soft kr2 and non tender X 4 quads. Patient currently denies nausea, vomiting, kr2
--- NOTE | 2017-12-27 16:32 | EDPHYS ---
Physician Documentation [facility] Name: Kim Mera Age: 72 yrs Sex: Female : 1945 Arrival Date: 12/27/2017 Time: 15:29 Bed 24 Private MD: Cele Bates C ED Physician Colt Kahn HPI: 12/27 16:25 This 72 yrs old Female presents to ER via Ambulatory with complaints of Chest ruben Wall Pain, Nausea. 16:25 The patient or guardian reports chest pain that is located primarily in the substernal ruben area. Onset: 2 day(s) ago. The pain radiates to the left shoulder. Associated signs and symptoms: The patient has no apparent associated signs or symptoms. The chest pain is described as a pressure. Modifying factors: The symptoms are alleviated by rest, the symptoms are aggravated by nothing. Severity of pain: At its worst the pain was mild. Historical: - Allergies: 15:40 Morphine; aj1 - Home Meds: 15:40 Effexor Oral [Active]; Multiple Vitamins Oral tab daily [Active]; Requip 0.5 mg Oral aj1 tab 3 tabs nightly [Active]; Tramadol Oral [Active]; - PMHx: 15:40 Arthritis; Firbomyalgia; High Cholesterol; restless leg syndrome; aj1 - Immunization history:: Flu vaccine is not up to date. - Social history:: Smoking status: Patient/guardian denies using tobacco. - Ebola Screening: : Patient denies travel to an Ebola-affected area in the 21 days before illness onset. - Family history:: not pertinent. ROS: 16:25 Constitutional: Negative for fever, chills, and weight loss, Eyes: Negative for injury, ruben pain, redness, and discharge, ENT: Negative for injury, pain, and discharge, Neck: Negative for injury, pain, and swelling, Respiratory: Negative for shortness of breath, cough, wheezing, and pleuritic chest pain, Abdomen/GI: Negative for abdominal pain, nausea, vomiting, diarrhea, and constipation, Back: Negative for injury and pain, : Negative for injury, bleeding, discharge, and swelling, Skin: Negative for injury, rash, and discoloration, Neuro: Negative for headache, weakness, numbness, tingling, and seizure, Psych: Negative for depression, anxiety, suicide ideation, homicidal ideation, and hallucinations, Allergy/Immunology: Negative for hives, rash, and allergies, Endocrine: Negative for neck swelling, polydipsia, polyuria, polyphagia, and marked weight changes, Hematologic/Lymphatic: Negative for swollen nodes, abnormal bleeding, and unusual bruising. 16:25 Cardiovascular: Positive for chest pain. 16:25 MS/extremity: Positive for pain, swelling. Exam: 16:25 Constitutional: This is a well developed, well nourished patient who is awake, alert, ruben and in no acute distress. Head/Face: Normocephalic, atraumatic. Eyes: Pupils equal round and reactive to light, extra-ocular motions intact. Lids and lashes normal. Conjunctiva and sclera are non-icteric and not injected. Cornea within normal limits. Periorbital areas with no swelling, redness, or edema. ENT: Nares patent. No nasal discharge, no septal abnormalities noted. Tympanic membranes are normal and external auditory canals are clear. Oropharynx with no redness, swelling, or masses, exudates, or evidence of obstruction, uvula midline. Mucous membranes moist. Neck: Trachea midline, no thyromegaly or masses palpated, and no cervical lymphadenopathy. Supple, full range of motion without nuchal rigidity, or vertebral point tenderness. No Meningismus. Chest/axilla: Normal chest wall appearance and motion. Nontender with no deformity. No lesions are appreciated. Cardiovascular: Regular rate and rhythm with a normal S1 and S2. No gallops, murmurs, or rubs. Normal PMI, no JVD. No pulse deficits. Respiratory: Lungs have equal breath sounds bilaterally, clear to auscultation and percussion. No rales, rhonchi or wheezes noted. No increased work of breathing, no retractions or nasal flaring. Abdomen/GI: Soft, non-tender, with normal bowel sounds. No distension or tympany. No guarding or rebound. No evidence of tenderness throughout. Back: No spinal tenderness. No costovertebral tenderness. Full range of motion. Skin: Warm, dry with normal turgor. Normal color with no rashes, no lesions, and no evidence of cellulitis. Neuro: Awake and alert, GCS 15, oriented to person, place, time, and situation. Cranial nerves II-XII grossly intact. Motor strength 5/5 in all extremities. Sensory grossly intact. Cerebellar exam normal. Normal gait. Psych: Awake, alert, with orientation to person, place and time. Behavior, mood, and affect are within normal limits. 16:25 Musculoskeletal/extremity: Circulation is intact in all extremities. Sensation intact. Compartment Syndrome exam of affected extremity: is normal. DVT Exam: No signs of deep vein thrombosis. no pain, no swelling, no tenderness, negative Homans' sign noted on exam, no appreciated bluish discoloration, no erythema, no increased warmth. Vital Signs: 15:40 BP 143 / 76; Pulse 77; Resp 18; Temp 97.4; Pulse Ox 100% on R/A; Weight 78.02 kg (R); aj1 Height 5 ft. 9 in. (175.26 cm) (R); Pain 6/10; 16:30 BP 144 / 77; Pulse 76; Resp 17; Pulse Ox 100% ; kr2 17:00 BP 122 / 77; Pulse 76; Resp 16; Pulse Ox 99% on R/A; kr2 19:28 BP 108 / 60; Pulse 64; Resp 18; Pulse Ox 99% on R/A; kr2 15:40 Body Mass Index 25.40 (78.02 kg, 175.26 cm) aj1 MDM: 15:56 Patient medically screened. ruben 15:56 Patient medically screened. [facility] 16:27 Data reviewed: vital signs, nurses notes, lab test result(s), EKG, radiologic studies, [facility] CT scan, plain films. 12/27 15:57 Order name: Basic Metabolic Panel; Complete Time: 17:27 [facility] 12/27 15:57 Order name: CBC with Diff; Complete Time: 17:27 [facility] 12/27 15:57 Order name: LFT's; Complete Time: 17:27 [facility] 12/27 15:57 Order name: Magnesium; Complete Time: 17:27 [facility] 12/27 15:57 Order name: NT PRO-BNP; Complete Time: 17:27 [facility] 12/27 15:57 Order name: PT-INR; Complete Time: 17:27 [facility] 12/27 15:57 Order name: Troponin (emerg Dept Use Only); Complete Time: 17:27 [facility] 12/27 15:57 Order name: Lipase; Complete Time: 17:27 [facility] 12/27 15:57 Order name: D-Dimer; Complete Time: 17:27 [facility] 12/27 15:57 Order name: Urine Culture [facility] 12/27 16:28 Order name: Urine Dipstick--Ancillary (enter results); Complete Time: 17:27 12/27 16:39 Order name: Basic Metabolic Panel [facility] 12/27 16:39 Order name: Basic Metabolic Panel [facility] 12/27 16:39 Order name: CBC with Automated Diff [facility] 12/27 15:57 Order name: XRAY Chest (1 view); Complete Time: 17:27 [facility] 12/27 15:57 Order name: EKG; Complete Time: 15:58 [facility] 12/27 16:39 Order name: CONS Physician Consult [facility] 12/27 16:39 Order name: CONS Physician Consult [facility] 12/27 16:39 Order name: CBC with Automated Diff [facility] 12/27 16:39 Order name: Troponin I [facility] 12/27 16:39 Order name: Troponin I [facility] 12/27 16:39 Order name: Troponin I [facility] 12/27 16:53 Order name: CT Chest For PE Angio [facility] 12/27 17:59 Order name: CT; Complete Time: 18:03 [facility] 12/27 15:57 Order name: Cardiac monitoring; Complete Time: 15:59 [facility] 12/27 15:57 Order name: EKG - Nurse/Tech; Complete Time: 16:21 [facility] 12/27 15:57 Order name: IV Saline Lock; Complete Time: 16:18 [facility] 12/27 15:57 Order name: Labs collected and sent; Complete Time: 16:18 [facility] 12/27 15:57 Order name: O2 Per Protocol; Complete Time: 15:59 [facility] 12/27 15:57 Order name: O2 Sat Monitoring; Complete Time: 15:58 [facility] 12/27 15:57 Order name: Urine Dipstick-Ancillary (obtain specimen); Complete Time: 16:21 [facility] 12/27 16:39 Order name: Regular [facility] 12/27 16:39 Order name: EKG Electrocardiogram [facility] 12/27 16:39 Order name: EKG Electrocardiogram [facility] 12/27 16:39 Order name: EKG Electrocardiogram [facility] 12/27 16:39 Order name: EKG Electrocardiogram [facility] Administered Medications: 16:42 Drug: Aspirin 162 mg Route: PO; kr2 19:22 Follow up: Response: No adverse reaction kr2 16:42 Drug: Lopressor 25 mg Route: PO; kr2 19:22 Follow up: Response: No adverse reaction kr2 16:42 Drug: Zofran 4 mg Route: IVP; Site: right antecubital; kr2 17:00 Follow up: Response: No adverse reaction; Nausea is decreased kr2 17:00 Drug: Lovenox 1 mg/kg Route: Sub-Q; Site: right lower abdomen; kr2 19:22 Follow up: Response: No adverse reaction kr2 17:45 Drug: Zofran 4 mg Route: IVP; Site: right antecubital; kr2 18:00 Follow up: Response: No adverse reaction; Nausea is decreased kr2 19:05 Drug: Potassium Effervescent Tablet 25 mEq Route: PO; kr2 19:27 Follow up: Response: No adverse reaction kr2 Disposition: 12/27/17 16:32 Hospitalization ordered by Cele Bates for Observation. Preliminary diagnosis are Chest pain, unspecified, Nausea, Hypokalemia. - Bed requested for Telemetry/MedSurg (observation). - Status is Observation. kr2 - Condition is Stable. - Problem is new. - Symptoms have improved. UTI on Admission? No Signatures: Dispatcher [employer] EDMS Radha Shannon RN RN aj1 Sharmaine Gallegos RN RN dw Anderson, Corey, MD MD cha Reaves, Karey, RN RN kr2 Corrections: (The following items were deleted from the chart) 17:29 16:32 Hospitalization Ordered by A Paulo WRIGHT for Observation. Preliminary diagnosis is ruben Chest pain, unspecified; Nausea. Bed requested for Telemetry/MedSurg (observation). Status is Observation. Condition is Stable. Problem is new. Symptoms have improved. UTI on Admission? No. ruben 17:48 17:29 12/27/2017 16:32 Hospitalization Ordered by A Paulo WRIGHT for Observation. dw Preliminary diagnosis is Chest pain, unspecified; Nausea; Hypokalemia. Bed requested for Telemetry/MedSurg (observation). Status is Observation. Condition is Stable. Problem is new. Symptoms have improved. UTI on Admission? No. ruben 20:02 17:48 12/27/2017 16:32 Hospitalization Ordered by A Paulo WRIGHT for Observation. kr2 Preliminary diagnosis is Chest pain, unspecified; Nausea; Hypokalemia. Bed requested for Telemetry/MedSurg (observation). Status is Observation. Condition is Stable. Problem is new. Symptoms have improved. UTI on Admission? No. dw
[2017-12-27 16:34] LABS: Absolute Monocytes 0.3 K/uL (0.1-1.3); Absolute Neutrophil 3.2 K/uL (1.8-8.0); Basophils % 1.7 % (0-1.3); Eosinophils % 1.2 % (0-4.4); Hematocrit 43.4 % (36.0-45.0); Lymphocytes % 20.9 % (15.3-44.8); MCH 29.9 pg (27.0-35.0); MCV 89.5 fL (80-100); MPV 8.5 fL (7.6-11.3); Monocytes % 6.2 % (3.3-12.3); RBC Red Blood Cell Count 4.85 M/uL (3.86-4.86)
[2017-12-27] MEDS ORDERED: ACETAMINOPHEN 500 MG TAB PO PRN (16:34)
[2017-12-27] MEDS ORDERED: ONDANSETRON 4 MG/2 ML VIAL IV PRN (16:34)
--- NOTE | 2017-12-27 16:34 | RAD REPORT ---
EXAM DESCRIPTION: [facility] Single View12/27/2017 4:22 pm CLINICAL HISTORY: Chest pain COMPARISON: October 2017 FINDINGS: The lungs appear clear of acute infiltrate. The heart is normal size IMPRESSION: No acute abnormalities displayed
[2017-12-27 16:40] LABS: Protime INR 0.92
[2017-12-27 16:44] LABS: Urine Blood NEGATIVE (NEG); Urine Glucose NEGATIVE (NEG); Urine Protein NEGATIVE (NEG); Urine Specific Gravity 1.025 (1.005-1.030)
[2017-12-27] MEDS ORDERED: ENOXAPARIN 80 MG/0.8 ML SQ ONE (16:44)
[2017-12-27] MEDS ORDERED: METOPROLOL TAR 25 MG TAB ONE (16:44)
[2017-12-27] MEDS ORDERED: ASPIRIN 81 MG CHEWABLE TABLET ONE (16:44)
[2017-12-27] MEDS ORDERED: ONDANSETRON 4 MG/2 ML VIAL ONE ×2 (16:44→17:26)
[2017-12-27 16:57] LABS: ALT/SGPT 21 U/L (12-78); AST/SGOT 18 U/L (15-37); Albumin 3.8 g/dL (3.4-5.0); Alkaline Phosphatase 119 U/L (45-117); BUN Blood Urea Nitrogen 17 mg/dL (7-18); Bicarbonate 29 mmol/L (21-32); Bilirubin Direct 0.1 mg/dL (0-0.2); Bilirubin Total 0.5 mg/dL (0.2-1.0); Glucose Level 106 mg/dL (74-106); Lipase 161 U/L (73-393); NT PRO-BNP 86 pg/mL (<125); Potassium 3.3 mmol/L (3.5-5.1); Sodium Level 142 mmol/L (136-145); Troponin (Emerg Dept Use Only) < 0.02 ng/mL (0.0-0.045)
--- NOTE | 2017-12-27 17:58 | RAD REPORT ---
EXAM DESCRIPTION: CT - Chest For Pe Angio - 12/27/2017 5:48 pm CLINICAL HISTORY: Chest pain. Chest pain;Dyspnea COMPARISON: Chest For Pe Angio dated 05/15/2015; Chest Single View dated 12/27/2017 TECHNIQUE: CT angiogram of the pulmonary arteries was performed with MIP. All CT scans are performed using dose optimization technique as appropriate and may include automated exposure control or mA/KV adjustment according to patient size. FINDINGS: No evidence of pulmonary thromboembolism. No acute aortic finding demonstrated. Mild dependent interstitial pulmonary edema suspected. No acute infiltrate seen. No significant pericardial or pleural fluid. Fracture of the proximal left humerus is seen. IMPRESSION: No evidence of pulmonary thromboembolism. Fracture proximal left humerus.
[2017-12-27] MEDS: METOPROLOL TAR 25 MG TAB PO SCH (18:00)
[2017-12-27] MEDS ORDERED: POTASSIUM 25 MEQ EFFERV TAB ONE (18:41)
[2017-12-27] MEDS ORDERED: KCL 20 MEQ/100 mL IVPB 20 MEQ/100 ML BAG IV ONE (18:41)
[2017-12-27] MEDS ORDERED: NA CHLORIDE 0.9% 1,000 ML ONE (18:41)
--- NOTE | 2017-12-27 20:55 | EKG ---
Test Date: 2017-12-27 Test Time: 16:23:38 Help Desk Coordinator: BARBARA MEASUREMENT RESULTS: Intervals: Rate: 74 MN: 142 QRSD: 100 QT: 420 QTc: 466 [place]: P: 38 MN: 142 QRS: -40 T: 63 INTERPRETIVE STATEMENTS: Normal sinus rhythm Left axis deviation Abnormal ECG Compared to ECG 01/23/2017 12:18:40 Incomplete right bundle-branch block no longer present Electronically Signed On 12-27-17 20:54:39 GREASE MAKER HEAD by Jean-Paul Knight
[2017-12-27] MEDS: PRAMIPEXOLE 1 MG TAB PO SCH (21:56)
[2017-12-27] MEDS: FAMOTIDINE 20 MG/2 ML VIAL IV SCH (21:56)
[2017-12-27] MEDS: IBUPROFEN 400 MG TAB PO SCH (23:08)
[2017-12-27] MEDS: TRAMADOL HCL 50 MG TAB PO SCH (23:08)
--- NOTE | 2017-12-28 03:40 | HP ---
Date of Admission: 12/27/2017 Chief Complaint: Chest pain. History Of Present Illness: This is a 72-year-old pleasant female patient who had fallen down almost a month ago and injured her left wrist distal forearm and left shoulder area. The patient says that for the left shoulder fracture, Orthopedic surgeon told her that there is nothing they could do and for wrist fracture, she had surgery done about [address] Bhatti. Her left upper extremity in sling and has experienced swelling of the left wrist that is visible through the sling, and she s ays that the swelling is better today than what it has been lately. In last the 2-3 day, she is expe riencing chest pain in the center of the chest and across her left side of the chest. She notices th is chest pain only with activity and it is associated with nausea, dizziness, fainting type of feelin g, and some shortness of breath. She has had this episodes multiple times a day, but once again it i s associated with activity. Today, she saw her orthopedic surgeon, Dr. Bhatti and reported this co mplaint and she was advised to come to emergency room. After she was evaluated in the ER, I was cont acted requesting admission to the hospital. When I saw her in the emergency room, she was asymptomat ic sitting in wheelchair. Allergies: TO MORPHINE, ADHESIVE TAPE, HYDROMORPHONE. Medications: List reviewed. Review of Systems: Cardiovascular: As mentioned above. Respiratory: As mentioned above. All other systems reviewed and negative. Social History: Negative for smoking and alcohol use. Family History: Significant for cirrhosis of liver, emphysema, coronary artery disease, hypertension . Past Surgical History: Hernia repair, surgery for removal of bone spur from cervical spine, rectocel e repair, left hip fracture surgery, appendectomy, back surgery, hysterectomy, tonsillectomy, bilater al mastectomy, and subsequently saline implant due to fibrocystic disease. Past Medical History: Significant for gastroesophageal reflux disease, impaired fasting glucose, hyp erlipidemia, diverticulosis, depression, restless legs syndrome, allergic rhinitis. Physical Examination: Vital Signs: When she came into emergency room, initial blood pressure 143/76, pulse 77, respiratory rate 18, temperature 97.4, pulse ox 100%, weight 78 kg, height 5 feet 9 inches. General: Awake, alert, oriented, not in distress. HEENT: Head atraumatic, normocephalic. Conjunctivae nonerythematous. Sclerae white. Mouth, no thr ush or edema noted. Ears/Nose, no mass, lesion, discharge noted. Neck: Supple. No JVD, lymph nodes, bruit, thyromegaly noted. Lungs: Bilateral good equal air entry. Clear to auscultation. No rhonchi. No rales. Heart: Normal heart sounds, no murmur or gallop. Abdomen: Soft, bowel sounds normal. No guarding, rigidity, tenderness, mass, hepatosplenomegaly, dis tention, or bruit noted. Extremities: No leg edema. No calf tenderness. Left upper extremity is in shoulder sling with mild edema of left dorsum wrist. Neurovascular status of left hand is normal. Skin: No rash, ulcer, cellulitis. Lymphatics: No lymph node enlargement in neck, supraclavicular, infraclavicular region. Neuro: No focal neurological deficit. Chest: Unremarkable. External Genitalia: Deferred. Rectal: Deferred. Laboratory Data: Chest x-ray: No acute intrathoracic abnormality noted. EKG: Normal sinus rhythm. No acute ST-T changes noted. CT scan of the chest per PE protocol, no evidence of pulmonary emboli sm. Fracture of the proximal left humerus noted on the CAT scan. White count 4.6, hemoglobin 14.5, platelets 206. Sodium 142, potassium 3.3, chloride 105, bicarb 29, BUN 17, creatinine 0.60, glucose 106. Liver function tests unremarkable. Troponin less than 0.02. Lipase 161. D-dimer 1031. Urina lysis negative. Impression: 1.Chest pain. 2.Hypokalemia. 3.Restless legs syndrome. 4.Gastroesophageal reflux disease. 5.Impaired fasting glucose. 6.Hyperlipidemia. 7.Diverticulosis. 8.Depression. 9.Allergic rhinitis. Plan: Admit the patient to hospital for further evaluation and management of this problem. The znia ent is appropriate for observation. We will admit her to telemetry. Consult Cardiology. Home medic ations will be continued per order. We will go ahead and use Lovenox per order. Give her treatment for gastroesophageal reflux disease. I will see her tomorrow morning for followup. Details and plan of treatment discussed with her. RAHEEM/MODL Voice ID: [id number]
[2017-12-28] MEDS ORDERED: ENOXAPARIN 80 MG/0.8 ML SQ SCH ×4 (05:00→21:00)
[2017-12-28 07:08] LABS: Absolute Lymphocytes (CBC) 1.5 K/uL (0.7-4.9); Absolute Monocytes 0.4 K/uL (0.1-1.3); Absolute Neutrophil 1.5 K/uL (1.8-8.0); Basophils % 0.8 % (0-1.3); Eosinophils % 1.9 % (0-4.4); Hematocrit 42.1 % (36.0-45.0); Lymphocytes % 43.2 % (15.3-44.8); MCH 30.4 pg (27.0-35.0); MPV 8.9 fL (7.6-11.3); Monocytes % 11.9 % (3.3-12.3); RBC Red Blood Cell Count 4.73 M/uL (3.86-4.86)
[2017-12-28 07:15] LABS: Potassium 3.8 mmol/L (3.5-5.1)
[2017-12-28] MEDS: METOPROLOL TAR 25 MG TAB PO SCH ×2 (09:30→18:11)
[2017-12-28] MEDS: FAMOTIDINE 20 MG/2 ML VIAL IV SCH ×2 (09:30→21:31)
[2017-12-28] MEDS: ASPIRIN EC 81 MG TAB PO SCH (09:31)
--- NOTE | 2017-12-28 09:40 | EKG ---
Test Date: 2017-12-28 Test Time: 08:03:55 Insurance Agency Manager: BARBARA MEASUREMENT RESULTS: Intervals: Rate: 60 IN: 154 QRSD: 100 QT: 450 QTc: 450 [place]: P: 60 IN: 154 QRS: -13 T: 56 INTERPRETIVE STATEMENTS: Normal sinus rhythm Normal ECG Compared to ECG 12/27/2017 16:23:38 Left-axis deviation no longer present Electronically Signed On 12-28-17 09:39:32 PHOTO MASK PROCESSOR by Jean-Paul Knight
--- NOTE | 2017-12-28 10:04 | CON ---
Mrs. Mera was placed in the hospital because of chest pain. History Of Present Illness: Mrs. Mera has noted chest pain just for a week or so. She has had a l ot of pain from her shoulder because she fell and broke her wrist and shoulder. Her shoulder is in a sling, it is the left shoulder, and she initially thought the pain she had might be from that, but [facility] pain she has is very, very suggestive of angina in a relatively brief duration. She has been in [facility] overnight where cardiac enzymes are normal, blood counts are normal, and an EKG is normal . The pain she has will come out every time she walks or exerts herself in any way, makes her feel t ight, pressure-like, central part of the chest, goes away when she rests. The patient does not use t obacco, rare alcohol. No illegal drugs. She is allergic to morphine, adhesive tape, hydrocodone, an d hydromorphone. Outpatient medications are Mirapex, Effexor, tramadol, ibuprofen. She is known to have dyslipidemia, but could not take Crestor, not sure if she was able to take any other statin drug s, not sure what was tried, but she is not on any cholesterol-lowering medication. She states her ch olesterols are around 250 with a very high LDL levels. Physical Examination: General: She is 5 feet 9 inches, 173 pounds. HEENT: Normal. Lungs: Clear. Carotids: No bruit. Heart: Within normal limits. Extremities: No cyanosis, clubbing, or edema. Normal limits. She has a splint on her left wrist. Her left shoulder is in the immobilizer sling. There is a lot of bruising over the left shoulder. Impression: Mrs. Mera has unstable angina. I have recommended we do a cardiac cath, possibly a st ent. We will plan to do that tomorrow, December 29, 2017. The patient seems to understand the procedure its potential benefits, indications, risks, and agrees to proceed. MUKUL Voice ID: [id number] Report ID: [id number]
--- NOTE | 2017-12-28 10:55 | PN ---
Date of Progress Note: 12/28/2017 Subjective: The patient was seen this morning for followup. No new complaints or problems reported by the patient. She was sitting in chair, did not get much sleep last night as she reported because she was uncomfortable in the bed, but no chest pain, no shortness of breath. Objective: Vital Signs: Reviewed. The patient says that when she gets up and moves around, she has little bit discomfort in the chest, but nothing like what she had before she came into the hospital. She has no complaints while sitting or resting. HEENT: Unremarkable. Lungs: Clear to auscultation. Heart: Sounds normal. Abdomen: Soft. Bowel sounds normal. No guarding, rigidity, tenderness, or distention. Extremities: No leg edema. Laboratory Data: White count 3.5, hemoglobin 14.4, platelets 214. Sodium 146, potassium 3.8, chloride 109, bicarb 30, BUN 18, creatinine 0.80, glucose 81. Impression: 1. Unstable angina. 2. Hypokalemia. 3. Restless legs syndrome. 4. Gastroesophageal reflux disease. Plan: We will go ahead and continue current medications. Continue metoprolol. Continue Lovenox. Cardiology consultation is appreciated and Dr. Knight has seen her from Cardiology Service and he is planning to do cardiac cath tomorrow. The patient had questions regarding this cardiac cath. She also had questions about taking Lovenox and metoprolol and all those details discussed with her. Explained it to her reasons behind during Lovenox injection as well as metoprolol and importance of further investigations like cardiac cath with her presenting complaints explained to her. She understands and agrees to proceed with cardiac cath procedure tomorrow. RAHEEM/MODL Voice ID: [id number] Report ID: [id number] MITUL
[2017-12-28] MEDS ORDERED: ENOXAPARIN 40 MG/0.4 ML SQ SCH (17:00)
[2017-12-28] MEDS: IBUPROFEN 400 MG TAB PO SCH (21:31)
[2017-12-28] MEDS: PRAMIPEXOLE 1 MG TAB PO SCH (21:31)
[2017-12-28] MEDS: TRAMADOL HCL 50 MG TAB PO SCH (21:31)
[2017-12-29] MEDS ORDERED: NA CHLORIDE 0.9% 1,000 ML ONE (04:56)
[2017-12-29] MEDS: ASPIRIN EC 81 MG TAB PO SCH (05:15)
[2017-12-29] MEDS: METOPROLOL TAR 25 MG TAB PO SCH (05:16)
[2017-12-29 05:39] LABS: Thyroid Stimulating Hormone 0.666 uIU/mL (0.360-3.740)
[2017-12-29 05:46] VITALS: BMI 25.6
[2017-12-29] MEDS ORDERED: LIDOCAINE 1% MPF 30 ML VIAL ONE (08:07)
[2017-12-29] MEDS ORDERED: HEPA 1000U/500MLS 2,000 UNIT/1,000 ML BAG IV ONE (08:07)
[2017-12-29] MEDS: FAMOTIDINE 20 MG/2 ML VIAL IV SCH (09:28)
--- NOTE | 2017-12-29 12:18 | PN ---
Date of Progress Note: 12/29/2017 Subjective: The patient was seen this morning for followup. No new complaints or problems reported by her except some arm pain and some pain in the left anterior chest below left breast area. This wa s since I saw her yesterday, but when I saw her, she was asymptomatic. Objective: Vital Signs: Reviewed. HEENT: Unremarkable. Lungs: Clear to auscultation. Heart: Sounds normal. Abdomen: Soft. Bowel sounds normal. No guarding, rigidity, tenderness, or distention. Extremities: No leg edema. Laboratory Data: Triglyceride 164, total cholesterol 205, LDL 121, HDL 51, TSH 0.6. Impression: 1.Unstable angina. 2.Hyperlipidemia. 3.Restless legs syndrome. Plan: The patient will have cardiac cath done today. Depending on the cardiac cath results further plan of treatment and intervention will be provided by managed security sales consultant. I did talk to patient and discu ssed about possible scenario with cardiac cath in terms of findings and need for intervention. All t hose details were discussed with her. RAHEEM/JUAN Voice ID: [id number] Report ID: [id number]
[2017-12-29] MEDS ORDERED: ATROPINE SULF 1 MG/10 ML SYR IV ONE (12:46)
[2017-12-29] MEDS ORDERED: FENTANYL CITR 100 MCG/2 ML ONE (12:46)
[2017-12-29] MEDS ORDERED: NA CHLORIDE 0.9% 0 ML ONE (12:46)
[2017-12-29] MEDS ORDERED: MIDAZOLAM HCL 2 MG/2 ML INJ ONE (12:46)
--- NOTE | 2017-12-29 14:21 | OP ---
Surgeon: Jean-Paul Knight MD Procedures: Left heart catheterization, coronary left ventricular angiography. Findings: The patient has normal coronary arteries, normal left ventricular ejection fraction, all n ormal pressures. Superior to the aorta, there is a mass-like effect deviating the trachea in an irre gular path to the right. This was discussed with Dr. Bates. Procedure In Detail: The patient was brought to the cardiac label sewer in a fasting state. She gave u s informed consent. She was sedated with Versed and fentanyl. She was prepared and draped in the [facility] sterile fashion. Right femoral artery was used. She was anesthetized with 1% lidocaine. An 18- gauge needle was inserted into the artery. The artery was then cannulated with a short J-wire in mod ified Seldinger technique, allowed us to put a 4-Brazilian sheath in. We used this for the remainder of the case. We used a JL4 to angiogram left coronary, 3DRC to angiogram the right coronary. Angled p igtail to angiogram the left ventricle. All catheters were guided into place using fluoroscopy and J wires. At the end of the procedure, all catheters were removed. The pigtail catheter was straighte mary kay out over a J-wire before it was removed. An angiogram was done of the right femoral artery using the 4-Brazilian sheath. Adequate anatomy was seen and we closed the arteriotomy with an Angio-Seal dev ice. Complications: None. Estimated Blood Loss: 10 cc. Licensed Pesticide Applicator: Valerie Jean. SAGAR/JUAN Voice ID: [id number] Report ID: [id number]
[2017-12-29] MEDS ORDERED: NITROGLYCERIN 0.4 MG/TAB SL PRN (16:00)
[2017-12-29] MEDS ORDERED: NA CHLORIDE 0.9% 1,000 ML IV SCH (16:00)
[2017-12-29] MEDS ORDERED: ACETAMINOPHEN 325 MG TABLET PO PRN (16:00)
[2017-12-29 17:33] VITALS: BP 117/58; TEMP 97.3
[2017-12-29 17:44] VITALS: O2SAT 94
== END 2017-12-29 18:18 | disposition home or self-care (01) | DRG 287 ==
LOC: ER 15:25 → ERHOLD 16:33 → 4TH 19:54 → OBSVTOIN 12-28 11:32
PROVIDERS: ADMIT Internal Medicine; ATTEND Internal Medicine
PROC: 4A023N7 Measurement of Cardiac Sampling and Pressure, Left Heart, Percutaneous Approach (ICD-10-PCS; principal; 2017-12-29)
PROC: B205YZZ Plain Radiography of Left Heart using Other Contrast (ICD-10-PCS; 2017-12-29)
DX: I20.0 Unstable angina (principal); S42.202A Unspecified fracture of upper end of left humerus, initial encounter for closed fracture; E78.5 Hyperlipidemia, unspecified; G25.81 Restless legs syndrome; E87.6 Hypokalemia; K21.9 Gastro-esophageal reflux disease without esophagitis; F32.9 Major depressive disorder, single episode, unspecified; J30.9 Allergic rhinitis, unspecified; K57.90 Diverticulosis of intestine, part unspecified, without perforation or abscess without bleeding
CPT/HCPCS: 36415; 71045; 71275; 80048; 80061; 80076; 81003; 83690; 83735; 83880; 84443; 84484; 85025; 85379; 85610; 87086; 87088; 93005; 93458; 96372; 96374; 99285; C1760; C1893; G0378; J0583; J1650; J2250; J2405; J3010; J7030; Q9967

== ENCOUNTER 2018-12-13 09:55 | Emergency (ER) | payer OTHER ==
--- NOTE | 2018-12-13 11:32 | EDPHYS ---
Physician Documentation [facility] Name: Kim Mera Age: 73 yrs Sex: Female : 1945 Arrival Date: 12/13/2018 Time: 09:57 Bed 6 Private MD: Cele Bates C ED Physician Magdy Beasley HPI: 12/13 16:11 This 73 yrs old Female presents to ER via Ambulatory with complaints of Wound kdr Check, InQuicker. 16:11 Patient presents to ED for recheck of: cellulitis. The affected area is on the left kdr daniel. Previous treatment: The patient has been putting antibiotic ointment on it without resolution. The patient has not experienced similar symptoms in the past. The patient has not recently seen a physician. The patient states that she initially had an abrasion. It has seemingly worsened since onset. Historical: - Allergies: 10:23 Morphine; sv 10:23 Hydromorphone; sv 10:23 hydrocodone; sv 10:23 adhesive tape; sv - PMHx: 10:23 Arthritis; Firbomyalgia; High Cholesterol; restless leg syndrome; sv - Immunization history:: Adult Immunizations up to date. - Social history:: Smoking status: Patient/guardian denies using tobacco. - Ebola Screening: : Patient denies travel to an Ebola-affected area in the 21 days before illness onset. ROS: 16:11 Constitutional: Negative for fever, chills, and weight loss, Eyes: Negative for injury, kdr pain, redness, and discharge. 16:11 Skin: Positive for cellulitis, of the left daniel. Exam: 16:11 Constitutional: This is a well developed, well nourished patient who is awake, alert, kdr and in no acute distress. 16:11 Skin: cellulitis, that is minimal, induration, that is mild is noted, located on the left daniel, injury, abrasion(s), small abrasion noted. Vital Signs: 10:23 BP 136 / 64; Pulse 62; Resp 16; Temp 98.1(O); Pulse Ox 100% ; Weight 79.38 kg; Height 5 sv ft. 8 in. (172.72 cm); 10:23 Body Mass Index 26.61 (79.38 kg, 172.72 cm) sv MDM: 11:31 Patient medically screened. kdr 16:11 Data reviewed: vital signs, nurses notes. Counseling: I had a detailed discussion with kdr the patient and/or guardian regarding: the historical points, exam findings, and any diagnostic results supporting the discharge/admit diagnosis, the need for outpatient follow up. 12/13 11:30 Order name: Antonina. Order: Clean and dress wound on leg; Complete Time: 11:48 kdr Administered Medications: 11:48 Drug: Bactrim (160 mg-800 mg (DS) 1 tablet Route: PO; aj1 11:49 Follow up: Response: No adverse reaction aj1 11:48 Drug: Clindamycin 300 mg Route: PO; aj1 11:49 Follow up: Response: No adverse reaction aj1 Disposition: 12/13/18 11:31 Discharged to Home. Impression: Cellulitis of left lower limb. - Condition is Stable. - Discharge Instructions: Cellulitis, Adult, [id number]. - Prescriptions for Clindamycin HCl 300 mg Oral Capsule - take 1 capsule by ORAL route every 6 hours for 7 days; 28 capsule. Bactrim DS 800- 160 mg Oral Tablet - take 1 tablet by ORAL route every 12 hours for 7 days; 14 tablet. - Medication Reconciliation Form, Thank You Letter, Antibiotic Education form. - Follow up: Cele Bates MD; When: 2 - 3 days; Reason: Further diagnostic work-up, Recheck today's complaints, Continuance of care, Re-evaluation by your physician. - Problem is an ongoing problem. - Symptoms are unchanged. Signatures: Radha Shannon RN RN aj1 Zulema West RN RN Magdy Beasley MD MD [email or web address] Corrections: (The following items were deleted from the chart) 11:50 11:31 12/13/2018 11:31 Discharged to Home. Impression: Cellulitis of left lower limb. aj1 Condition is Stable. Forms are Medication Reconciliation Form, Thank You Letter, Antibiotic Education, Prescription Opioid Use. Follow up: Cele Bates; When: 2 - 3 days; Reason: Further diagnostic work-up, Recheck today's complaints, Continuance of care, Re-evaluation by your physician. Problem is an ongoing problem. Symptoms are unchanged. kdr
--- NOTE | 2018-12-13 11:32 | ER ---
Nurse's Notes [facility] Name: Kim Mera Age: 73 yrs Sex: Female : 1945 Arrival Date: 12/13/2018 Time: 09:57 Bed 6 Private MD: Cele Bates C Diagnosis: Cellulitis of left lower limb Presentation: 12/13 10:21 Presenting complaint: Patient states: scratched her left daniel on something about 5 sv weeks ago and the wound has progressively been getting worse, reports low grade fever. Transition of care: patient was not received from another setting of care. Onset of symptoms was December 13, 2018. Risk Assessment: Do you want to hurt yourself or someone else? Patient reports no desire to harm self or others. Initial Sepsis Screen: Does the patient meet any 2 criteria? No. Patient's initial sepsis screen is negative. Does the patient have a suspected source of infection? Yes: Skin breakdown/wound. Care prior to arrival: None. 10:21 Method Of Arrival: Ambulatory sv 10:21 Acuity: JUAN 3 sv Historical: - Allergies: 10:23 Morphine; sv 10:23 Hydromorphone; sv 10:23 hydrocodone; sv 10:23 adhesive tape; sv - PMHx: 10:23 Arthritis; Firbomyalgia; High Cholesterol; restless leg syndrome; sv - Immunization history:: Adult Immunizations up to date. - Social history:: Smoking status: Patient/guardian denies using tobacco. - Ebola Screening: : Patient denies travel to an Ebola-affected area in the 21 days before illness onset. Screenin:28 Abuse screen: Denies threats or abuse. Denies injuries from another. Nutritional aj1 screening: No deficits noted. Tuberculosis screening: No symptoms or risk factors identified. 11:49 Fall Risk None identified. aj1 Assessment: 11:28 General: Appears in no apparent distress. comfortable, Behavior is calm, cooperative, aj1 appropriate for age. Pain: Complains of pain in left daniel Pain does not radiate. Pain currently is 7 out of 10 on a pain scale. Quality of pain is described as throbbing. Neuro: Level of Consciousness is awake, alert, obeys commands, Oriented to person, place, time, situation. Cardiovascular: Patient's skin is warm and dry. Respiratory: Airway is patent Respiratory effort is even, unlabored, Respiratory pattern is regular, symmetrical. GI: No signs and/or symptoms were reported involving the gastrointestinal system. : No signs and/or symptoms were reported regarding the genitourinary system. EENT: No signs and/or symptoms were reported regarding the EENT system. Derm: Wound noted left daniel Wound is small red, raised area. Patient reports initial injury was a scratch 5 weeks ago that has gotten progressively worse. Reports a small amount of purulent drainage from the wound. Musculoskeletal: No signs and/or symptoms reported regarding the musculoskeletal system. Circulation, motion, and sensation intact. Vital Signs: 10:23 BP 136 / 64; Pulse 62; Resp 16; Temp 98.1(O); Pulse Ox 100% ; Weight 79.38 kg; Height 5 sv ft. 8 in. (172.72 cm); 10:23 Body Mass Index 26.61 (79.38 kg, 172.72 cm) sv ED Course: 09:57 Patient arrived in ED. as 09:57 Cele Bates MD is Private Physician. as 10:03 Magdy Beasley MD is Attending Physician. kdr 10:22 Triage completed. sv 10:24 Arm band placed on Patient placed in waiting room, Patient notified of wait time. sv 11:27 Radha Shannon RN is Primary Nurse. aj1 11:28 Patient has correct armband on for positive identification. Bed in low position. Call aj1 light in reach. Side rails up X 1. 11:28 No provider procedures requiring assistance completed. aj1 11:30 Cele Bates MD is Referral Physician. kdr 11:48 Patient did not have IV access during this emergency room visit. Wound care: located on aj1 left daniel was cleaned with with NS, applied CIRO and covered with Band-Aid. Administered Medications: 11:48 Drug: Bactrim (160 mg-800 mg (DS) 1 tablet Route: PO; aj1 11:49 Follow up: Response: No adverse reaction aj1 11:48 Drug: Clindamycin 300 mg Route: PO; aj1 11:49 Follow up: Response: No adverse reaction aj1 Outcome: 11:31 Discharge ordered by . kdr 11:49 Discharged to home ambulatory. aj1 11:49 Condition: good 11:49 Discharge instructions given to patient, Instructed on discharge instructions, follow up and referral plans. medication usage, Demonstrated understanding of instructions, follow-up care, medications, Prescriptions given X 2. 11:50 Patient left the ED. aj1 Signatures: Radha Shannon RN RN aj1 Zulema West RN RN sv Magdy Beasley MD MD kdr Martinez, Amelia as
[2018-12-13] MEDS ORDERED: CLINDAMYCIN HCL 150 MG CAP ONE (11:33)
[2018-12-13] MEDS ORDERED: SMZ./TMP. 800/160 MG TABLET ONE (11:33)
[2018-12-13 14:59] VITALS: BP 136/64; TEMP 98.1; O2SAT 100
--- OUTSIDE RECORDS SUMMARY | 2018-12-17 03:07 | XMS REPORT ---
:1945 [facility] Address [address] [place] [address] Dr. Kumar [address] [place] [id number] Care Team Providers Name Role Phone Unavailable Unavailable Unavailable Problems This patient has no known problems. Allergies, Adverse Reactions, Alerts This patient has no known allergies or adverse reactions. Medications This patient has no known medications.
== END 2018-12-13 11:50 | disposition home or self-care (01) ==
LOC: ER 09:55
DX: L03.116 Cellulitis of left lower limb (principal); Z88.6 Allergy status to analgesic agent
CPT/HCPCS: 99283

== ENCOUNTER 2019-02-10 12:27 | Emergency (ER) | payer OTHER ==
--- OUTSIDE RECORDS SUMMARY | 2019-02-10 12:29 | XMS REPORT ---
:1945 [facility] Address [address] [place] [address] Dr. Kumar [address] [place] [id number] Care Team Providers Name Role Phone Unavailable Unavailable Unavailable Problems This patient has no known problems. Allergies, Adverse Reactions, Alerts This patient has no known allergies or adverse reactions. Medications This patient has no known medications.
[2019-02-10] MEDS ORDERED: dexAMETHasone 10 MG/ML VIAL ONE (13:43)
[2019-02-10] MEDS ORDERED: ONDANSETRON 4 MG/2 ML VIAL ONE (13:44)
[2019-02-10] MEDS ORDERED: KETOROLAC 30 MG/ML INJ ONE (13:44)
[2019-02-10 13:46] LABS: Absolute Lymphocytes (CBC) 1.4 K/uL (0.7-4.9); Basophils % 0.5 % (0-1.3); Hematocrit 44.9 % (36.0-45.0); Lymphocytes % 25.5 % (15.3-44.8); MPV 9.1 fL (7.6-11.3)
[2019-02-10 14:02] LABS: Albumin 3.8 g/dL (3.4-5.0); Bilirubin Total 0.6 mg/dL (0.2-1.0); Potassium 3.7 mmol/L (3.5-5.1)
--- NOTE | 2019-02-10 14:09 | RAD REPORT ---
EXAM DESCRIPTION: RAD - Chest Single View - 02/10/2019 1:58 pm CLINICAL HISTORY: CHEST PAIN Chest pain. COMPARISON: Chest Single View dated 12/27/2017; Chest Pa And Lat (2 Views) dated 07/06/2017; Chest Si ngle View dated 05/15/2015; ABDOMEN 1 VIEW KUB dated 05/28/2014 FINDINGS: Portable technique limits examination quality. The lungs are grossly clear. The heart is normal in size. No displaced fractures.Cervical hardware pl ate. IMPRESSION: No acute intrathoracic process suspected.
--- NOTE | 2019-02-10 14:11 | RAD REPORT ---
EXAM DESCRIPTION: RAD - Lumbar Spine 3 Views - 02/10/2019 1:58 pm CLINICAL HISTORY: PAIN Radiculopathy COMPARISON: LUMBAR SPINE 3 VIEWS dated 06/27/2013 FINDINGS: No acute compression fracture seen. Old mild L2 anterior wedge compression deformity prese nt. Moderate lower lumbar degenerative changes are present with facet hypertrophy. Aortic atheroscler osis.
--- NOTE | 2019-02-10 14:11 | RAD REPORT ---
EXAM DESCRIPTION: RAD - Pelvis - 02/10/2019 1:58 pm CLINICAL HISTORY: PAIN COMPARISON: No comparisons FINDINGS: Three compression screws are present in the proximal left femur. Degenerative changes are present in both hips, slightly greater on the right. No acute fracture seen.
[2019-02-10 14:24] LABS: Protime INR 0.93
[2019-02-10 14:41] LABS: ALT/SGPT 22 U/L (12-78); AST/SGOT 19 U/L (15-37); Albumin 3.7 g/dL (3.4-5.0); Alkaline Phosphatase 102 U/L (45-117); BUN Blood Urea Nitrogen 12 mg/dL (7-18); Bicarbonate 27 mmol/L (21-32); Bilirubin Direct 0.1 mg/dL (0-0.2); Bilirubin Total 0.6 mg/dL (0.2-1.0); Glucose Level 105 mg/dL (74-106); Magnesium 2.3 mg/dL (1.8-2.4); NT PRO-BNP 90 pg/mL (<125); Potassium 3.8 mmol/L (3.5-5.1); Protein, Total 6.8 g/dL (6.4-8.2); Sodium Level 144 mmol/L (136-145); Troponin (Emerg Dept Use Only) < 0.02 ng/mL (0.0-0.045)
--- NOTE | 2019-02-10 14:49 | RAD REPORT ---
EXAM DESCRIPTION: US - Extrem Venous W Compress Mauro - 02/10/2019 2:43 pm CLINICAL HISTORY: PAIN Bilateral leg edema and swelling. COMPARISON: Extremity Venous Uni Ltd dated 01/23/2017 TECHNIQUE: Real-time sonographic interrogation of the left and right lower extremity deep venous sys tems was performed. FINDINGS: Normal compressibility, flow augmentation, phasic flow and spontaneous flow is identified in both the left and right lower extremity deep venous systems. IMPRESSION: No sonographic evidence of left or right lower extremity deep venous thrombosis.
--- NOTE | 2019-02-10 15:44 | RAD REPORT ---
EXAM DESCRIPTION: CT - C Spine Wo Con - 02/10/2019 3:34 pm CLINICAL HISTORY: PAIN Neck pain, neck injury, radiculopathy COMPARISON: No comparisons FINDINGS: Postsurgical changes of ACDF span C4-7. Posteriorly projecting osteophytes noted most prom inent at the C6-7 level. No evidence of hardware loosening. No evidence of acute cervical spine fracture or subluxation. Prevertebral soft tissues are normal in thickness. IMPRESSION: Negative for acute cervical spine abnormality. Postsurgical changes are present with no evidence of hardware complication. All CT scans are performed using dose optimization technique as appropriate and may include automated exposure control or mA/KV adjustment according to patient size.
--- NOTE | 2019-02-10 15:50 | RAD REPORT ---
EXAM DESCRIPTION: CT - Angio Aorta For Dissection - 02/10/2019 3:35 pm CLINICAL HISTORY: Chest pain radiating to the back. Dissection;PE COMPARISON: No comparisons TECHNIQUE: CT angiography of the aorta was performed with MIPs. All CT scans are performed using dose optimization technique as appropriate and may include automated exposure control or mA/KV adjustment according to patient size. FINDINGS: A left aortic arch is present with normal branching pattern of the great vessels.No acute aortic finding is seen such as aneurysm, penetrating ulcer or dissection. The celiac axis, SMA, SONNY and renal arteries are patent. No evidence of pulmonary embolism. The lungs are clear. The liver demonstrates no focal mass or biliary dilatation.Mild diffuse fatty liver is suspected.The spleen, pancreas, adrenal glands and kidneys are within normal limits for arterial phase imaging. No bowel obstruction, free fluid or abscess.Appendectomy.No pathologic enlarged lymphadenopathy ident ified. Three compression screws are present in the proximal left femur.Postsurgical clips are present right inguinal region. IMPRESSION: No acute aortic finding is demonstrated.
--- NOTE | 2019-02-10 16:53 | ER ---
Nurse's Notes [facility] Name: Kim Mera Age: 73 yrs Sex: Female : 1945 Arrival Date: 02/10/2019 Time: 12:30 Bed 24 Private MD: Diagnosis: Low back pain;Pain in left leg;Osteoarthritis of hip, unspecified Presentation: 02/10 12:34 Presenting complaint: Patient states: L leg pain for a while now. Went to the doctor a ca1 month or 2 ago, they did an MRI and did not find anything. Last night I had 2 incidents of horrible shooting pain down on this leg. Last 2-3 days I've had neck pain that shoots through the L side of my back. Pt ambulatory. Transition of care: patient was not received from another setting of care. Onset of symptoms was February 10, 2019. Risk Assessment: Do you want to hurt yourself or someone else? Patient reports no desire to harm self or others. Initial Sepsis Screen: Does the patient meet any 2 criteria? No. Patient's initial sepsis screen is negative. Does the patient have a suspected source of infection? No. Patient's initial sepsis screen is negative. Care prior to arrival: None. 12:34 Method Of Arrival: Ambulatory ca1 12:34 Acuity: JUAN 4 ca1 Historical: - Allergies: 12:39 adhesive tape; ca1 12:39 HYDROCODONE; ca1 12:39 Hydromorphone; ca1 12:39 Morphine; ca1 - Home Meds: 12:39 Effexor Oral [Active]; ca1 - PMHx: 12:39 Arthritis; Firbomyalgia; High Cholesterol; restless leg syndrome; ca1 - PSHx: 12:39 Appendectomy; Hysterectomy; Back Surgery; ca1 - Immunization history:: Adult Immunizations unknown, Flu vaccine is not up to date. Pneumococcal vaccine is up to date. - Social history:: Smoking status: Patient/guardian denies using tobacco. - Ebola Screening: : Patient negative for fever greater than or equal to 101.5 degrees Fahrenheit, and additional compatible Ebola Virus Disease symptoms Patient denies exposure to infectious person Patient denies travel to an Ebola-affected area in the 21 days before illness onset No symptoms or risks identified at this time. - Family history:: not pertinent. Screenin:48 Abuse screen: Denies threats or abuse. Denies injuries from another. Nutritional mg2 screening: No deficits noted. Tuberculosis screening: No symptoms or risk factors identified. Fall Risk IV access (20 points). Assessment: 13:47 General: Appears in no apparent distress. comfortable, Behavior is calm, cooperative. mg2 Pain: Complains of pain in left leg Pain does not radiate. Pain currently is 5 out of 10 on a pain scale. Quality of pain is described as aching, Pain began 1 day ago. Neuro: Level of Consciousness is awake, alert, obeys commands, Oriented to person, place, time, situation. Cardiovascular: Capillary refill < 3 seconds Patient's skin is warm and dry. Respiratory: Airway is patent Respiratory effort is even, unlabored, Respiratory pattern is regular, symmetrical. GI: No signs and/or symptoms were reported involving the gastrointestinal system. : No signs and/or symptoms were reported regarding the genitourinary system. EENT: No signs and/or symptoms were reported regarding the EENT system. Derm: Skin is intact, is healthy with good turgor, Skin is pink, warm \T\ dry. normal. Musculoskeletal: Circulation, motion, and sensation intact. Capillary refill < 3 seconds, Reports pain in left leg. 13:50 Reassessment: sent to xray. mg2 Vital Signs: 12:39 BP 152 / 59; Pulse 80; Resp 17 S; Temp 97.8(TE); Pulse Ox 98% on R/A; Weight 81.65 kg ca1 (R); Height 5 ft. 9 in. (175.26 cm) (R); Pain 5/10; 16:24 BP 105 / 54; Pulse 70; Resp 18; Pulse Ox 95% on R/A; mg2 17:28 BP 110 / 70; Pulse 71; Resp 18; Temp 98; Pulse Ox 100% on R/A; mg2 12:39 Body Mass Index 26.58 (81.65 kg, 175.26 cm) ca1 ED Course: 12:30 Patient arrived in ED. mr 12:37 Triage completed. ca1 12:39 Arm band placed on right wrist. ca1 12:44 Colt Kahn MD is Attending Physician. ruben 13:23 Sandip Mccain RN is Primary Nurse. mg2 13:49 Patient has correct armband on for positive identification. Pulse ox on. NIBP on. mg2 13:49 No provider procedures requiring assistance completed. Inserted saline lock: 22 gauge mg2 in left forearm, using aseptic technique. 13:53 Lumbar Spine (3 Views) XRAY In Process Unspecified. EDMS 13:53 Pelvis XRAY In Process Unspecified. EDMS 13:53 XRAY Chest (1 view) In Process Unspecified. EDMS 14:41 Ultrasound completed. Patient tolerated well. sg3 14:44 US Extremity Venous W Compression Mauro In Process Unspecified. EDMS 15:35 CT C Spine In Process Unspecified. EDMS 15:37 CT Aorta for Dissection In Process Unspecified. EDMS 16:45 Cele Bates MD is Referral Physician. ruben 17:28 IV discontinued, intact, bleeding controlled, No redness/swelling at site. Pressure mg2 dressing applied. Administered Medications: 14:11 Drug: Zofran 4 mg Route: IVP; Site: left forearm; mg2 15:00 Follow up: Response: No adverse reaction mg2 14:11 Drug: Decadron - Dexamethasone 10 mg Route: IVP; Site: left forearm; mg2 15:00 Follow up: Response: No adverse reaction; Marked relief of symptoms mg2 14:11 Not Given (Patient Refused): Valium 5 mg PO once mg2 14:12 Drug: TORadol 30 mg Route: IVP; Site: left forearm; mg2 18:23 Follow up: Response: No adverse reaction mg2 Outcome: 16:48 Discharge ordered by MD. ruben 17:28 Discharged to home ambulatory. mg2 17:28 Condition: stable 17:28 Discharge instructions given to patient, Instructed on discharge instructions, follow up and referral plans. medication usage, Demonstrated understanding of instructions, follow-up care, medications, Prescriptions given X 2. 17:29 Patient left the ED. mg2 Signatures: Dispatcher [employer] EDCT Colt Kahn MD MD cha Rivera, Naina Whitten, Maris sg3 Sandip Mccain RN RN mg2 Melissa Paez RN RN ca1
--- NOTE | 2019-02-10 16:54 | EDPHYS ---
Physician Documentation [facility] Name: Kim Mera Age: 73 yrs Sex: Female : 1945 Arrival Date: 02/10/2019 Time: 12:30 Bed 24 Private MD: YAQUELIN Physician Colt Kahn HPI: 02/10 13:14 This 73 yrs old Female presents to ER via Ambulatory with complaints of Leg ruben Pain, Back Pain. 13:14 The patient presents with decreased range of motion, pain, that is acute. The ruben complaints affect the left hip, lateral aspect of left thigh, lateral aspect of left knee, left quadriceps and left knee. Context: The problem was sustained at an unknown site. Onset: The symptoms/episode began/occurred 1 day(s) ago. Modifying factors: The symptoms are alleviated by elevating leg, remaining still, the symptoms are aggravated by movement, bending knee. Associated signs and symptoms: The patient has no apparent associated signs or symptoms. Severity of symptoms: At their worst the symptoms were mild, in the emergency department the symptoms are unchanged. The patient has not experienced similar symptoms in the past. Historical: - Allergies: 12:39 adhesive tape; ca1 12:39 HYDROCODONE; ca1 12:39 Hydromorphone; ca1 12:39 Morphine; ca1 - Home Meds: 12:39 Effexor Oral [Active]; ca1 - PMHx: 12:39 Arthritis; Firbomyalgia; High Cholesterol; restless leg syndrome; ca1 - PSHx: 12:39 Appendectomy; Hysterectomy; Back Surgery; ca1 - Immunization history:: Adult Immunizations unknown, Flu vaccine is not up to date. Pneumococcal vaccine is up to date. - Social history:: Smoking status: Patient/guardian denies using tobacco. - Ebola Screening: : Patient negative for fever greater than or equal to 101.5 degrees Fahrenheit, and additional compatible Ebola Virus Disease symptoms Patient denies exposure to infectious person Patient denies travel to an Ebola-affected area in the 21 days before illness onset No symptoms or risks identified at this time. - Family history:: not pertinent. ROS: 13:14 Constitutional: Negative for fever, chills, and weight loss, Eyes: Negative for injury, ruben pain, redness, and discharge, ENT: Negative for injury, pain, and discharge, Neck: Negative for injury, pain, and swelling, Cardiovascular: Negative for chest pain, palpitations, and edema, Respiratory: Negative for shortness of breath, cough, wheezing, and pleuritic chest pain, Abdomen/GI: Negative for abdominal pain, nausea, vomiting, diarrhea, and constipation, : Negative for injury, bleeding, discharge, and swelling, Skin: Negative for injury, rash, and discoloration, Neuro: Negative for headache, weakness, numbness, tingling, and seizure, Psych: Negative for depression, anxiety, suicide ideation, homicidal ideation, and hallucinations, Allergy/Immunology: Negative for hives, rash, and allergies, Endocrine: Negative for neck swelling, polydipsia, polyuria, polyphagia, and marked weight changes. 13:14 Back: Positive for decreased range of motion, pain at rest, pain with movement, of the left low back. 13:14 MS/extremity: Positive for pain, Negative for paresthesias, swelling, tenderness. Exam: 13:14 Constitutional: This is a well developed, well nourished patient who is awake, alert, ruben and in no acute distress. Head/Face: Normocephalic, atraumatic. Eyes: Pupils equal round and reactive to light, extra-ocular motions intact. Lids and lashes normal. Conjunctiva and sclera are non-icteric and not injected. Cornea within normal limits. Periorbital areas with no swelling, redness, or edema. ENT: Nares patent. No nasal discharge, no septal abnormalities noted. Tympanic membranes are normal and external auditory canals are clear. Oropharynx with no redness, swelling, or masses, exudates, or evidence of obstruction, uvula midline. Mucous membranes moist. Neck: Trachea midline, no thyromegaly or masses palpated, and no cervical lymphadenopathy. Supple, full range of motion without nuchal rigidity, or vertebral point tenderness. No Meningismus. Chest/axilla: Normal chest wall appearance and motion. Nontender with no deformity. No lesions are appreciated. Cardiovascular: Regular rate and rhythm with a normal S1 and S2. No gallops, murmurs, or rubs. Normal PMI, no JVD. No pulse deficits. Respiratory: Lungs have equal breath sounds bilaterally, clear to auscultation and percussion. No rales, rhonchi or wheezes noted. No increased work of breathing, no retractions or nasal flaring. Abdomen/GI: Soft, non-tender, with normal bowel sounds. No distension or tympany. No guarding or rebound. No evidence of tenderness throughout. Back: No spinal tenderness. No costovertebral tenderness. Full range of motion. Skin: Warm, dry with normal turgor. Normal color with no rashes, no lesions, and no evidence of cellulitis. Neuro: Awake and alert, GCS 15, oriented to person, place, time, and situation. Cranial nerves II-XII grossly intact. Motor strength 5/5 in all extremities. Sensory grossly intact. Cerebellar exam normal. Normal gait. Psych: Awake, alert, with orientation to person, place and time. Behavior, mood, and affect are within normal limits. 13:14 Musculoskeletal/extremity: ROM: full active range of motion, full passive range of motion, Circulation is intact in all extremities. Sensation intact. Compartment Syndrome exam of affected extremity: is normal. Joints: All joints appear normal with full range of motion. Weight bearing: able to fully bear weight, DVT Exam: no swelling, no tenderness, negative Homans' sign noted on exam, no appreciated bluish discoloration, no erythema, no increased warmth, pain. Vital Signs: 12:39 BP 152 / 59; Pulse 80; Resp 17 S; Temp 97.8(TE); Pulse Ox 98% on R/A; Weight 81.65 kg ca1 (R); Height 5 ft. 9 in. (175.26 cm) (R); Pain 5/10; 16:24 BP 105 / 54; Pulse 70; Resp 18; Pulse Ox 95% on R/A; mg2 17:28 BP 110 / 70; Pulse 71; Resp 18; Temp 98; Pulse Ox 100% on R/A; mg2 12:39 Body Mass Index 26.58 (81.65 kg, 175.26 cm) ca1 MDM: 12:45 Patient medically screened. [facility] 13:16 Data reviewed: vital signs, nurses notes, lab test result(s), radiologic studies, [facility] doppler, plain films. 13:25 ED course: pt called me back to the room, also neck pain, left chest pain x 3 days. [facility] 02/10 13:14 Order name: CBC with Diff; Complete Time: 13:59 [facility] 02/10 13:14 Order name: Comprehensive Metabolic Panel; Complete Time: 14:38 02/10 13:24 Order name: Basic Metabolic Panel; Complete Time: 14:42 02/10 13:24 Order name: LFT's; Complete Time: 14:42 02/10 13:24 Order name: Magnesium; Complete Time: 14:42 02/10 13:24 Order name: NT PRO-BNP; Complete Time: 14:42 02/10 13:14 Order name: US Extremity Venous W Compression Mauro; Complete Time: 15:25 02/10 13:14 Order name: Lumbar Spine (3 Views) XRAY; Complete Time: 14:38 02/10 13:14 Order name: Pelvis XRAY; Complete Time: 14:38 02/10 13:24 Order name: PT-INR; Complete Time: 15:25 02/10 13:24 Order name: Troponin (emerg Dept Use Only); Complete Time: 14:42 02/10 13:24 Order name: XRAY Chest (1 view); Complete Time: 14:38 02/10 13:24 Order name: CT C Spine; Complete Time: 16:28 02/10 13:27 Order name: Lipase; Complete Time: 14:42 02/10 13:24 Order name: EKG; Complete Time: 13:25 02/10 13:24 Order name: Cardiac monitoring; Complete Time: 13:49 02/10 13:24 Order name: EKG - Nurse/Tech; Complete Time: 14:11 02/10 13:24 Order name: IV Saline Lock; Complete Time: 13:50 02/10 13:24 Order name: Labs collected and sent; Complete Time: 13:50 02/10 13:24 Order name: O2 Per Protocol; Complete Time: 13:50 02/10 13:24 Order name: O2 Sat Monitoring; Complete Time: 13:50 02/10 13:24 Order name: CT Aorta for Dissection; Complete Time: 16:28 ruben Administered Medications: 14:11 Drug: Zofran 4 mg Route: IVP; Site: left forearm; mg2 15:00 Follow up: Response: No adverse reaction mg2 14:11 Drug: Decadron - Dexamethasone 10 mg Route: IVP; Site: left forearm; mg2 15:00 Follow up: Response: No adverse reaction; Marked relief of symptoms mg2 14:11 Not Given (Patient Refused): Valium 5 mg PO once mg2 14:12 Drug: TORadol 30 mg Route: IVP; Site: left forearm; mg2 18:23 Follow up: Response: No adverse reaction mg2 Disposition: 02/10/19 16:48 Discharged to Home. Impression: Low back pain, Pain in left leg, Osteoarthritis of hip, unspecified. - Condition is Stable. - Discharge Instructions: Arthritis, Back Pain, Adult, Chronic Back Pain, Musculoskeletal Pain, Knee Pain, Arthritis, [id number]. - Prescriptions for Medrol (Adin) 4 mg Oral Tablets, Dose Pack - take 1 tablet by ORAL route as directed - follow package instructions; 1 packet. Motrin IB 200 mg Oral Tablet - take 2 tablet by ORAL route every 6 hours As needed as needed with food; 20 tablet. - Medication Reconciliation Form, Thank You Letter, Antibiotic Education, Prescription Opioid Use form. - Follow up: Private Physician; When: 2 - 3 days; Reason: Recheck today's complaints, Continuance of care, Re-evaluation by your physician. Follow up: Cele Bates MD; When: 2 - 3 days; Reason: Recheck today's complaints, Continuance of care, Re-evaluation by your physician. - Problem is new. - Symptoms have improved. Signatures: Dispatcher [employer] EDColt Reeves MD MD cha Gardose, Michele, RN RN mg2 Acob, Cheryl, RN RN ca1 Corrections: (The following items were deleted from the chart) 17:29 16:48 02/10/2019 16:48 Discharged to Home. Impression: Low back pain; Pain in left leg; mg2 Osteoarthritis of hip, unspecified. Condition is Stable. Forms are Medication Reconciliation Form, Thank You Letter, Antibiotic Education, Prescription Opioid Use. Follow up: Private Physician; When: 2 - 3 days; Reason: Recheck today's complaints, Continuance of care, Re-evaluation by your physician. Follow up: Cele Bates; When: 2 - 3 days; Reason: Recheck today's complaints, Continuance of care, Re-evaluation by your physician. Problem is new. Symptoms have improved. ruben
[2019-02-10 18:13] VITALS: BP 110/70; TEMP 98; O2SAT 100
--- NOTE | 2019-02-11 05:31 | EKG ---
Test Date: 2019-02-10 Test Time: 14:08:32 Operator Specialist Communications: ANDERS MEASUREMENT RESULTS: Intervals: Rate: 62 MI: 132 QRSD: 90 QT: 456 QTc: 462 [place]: P: 29 MI: 132 QRS: -13 T: 61 INTERPRETIVE STATEMENTS: Normal sinus rhythm Normal ECG Compared to ECG 12/28/2017 08:03:55 No significant changes Electronically Signed On 02-11-19 05:30:24 RAG PRODUCTION WORKER by Jean-Paul Knight
== END 2019-02-10 17:29 | disposition home or self-care (01) ==
LOC: ER 12:27
DX: M16.12 Unilateral primary osteoarthritis, left hip (principal); M54.5 Low back pain; Z88.5 Allergy status to narcotic agent; Z88.8 Allergy status to other drugs, medicaments and biological substances
CPT/HCPCS: 93005; 85025; 80048; 36415; 83735; 85610; 80076; 84484; 83690; 80053; 83880; 72125; 71275; 74175; 71045; 72100; 72170; 93970; 96375; 96374; 99284; Q9967; J1100; J2405

== ENCOUNTER 2019-04-25 01:55 | Emergency (ER) | payer OTHER ==
--- OUTSIDE RECORDS SUMMARY | 2019-04-25 01:57 | XMS REPORT ---
:1945 [facility] Address [address] [place] [address] Dr. Kumar [address] [place] [address] Care Team Providers Name Role Phone Unavailable Unavailable Unavailable Problems This patient has no known problems. Allergies, Adverse Reactions, Alerts This patient has no known allergies or adverse reactions. Medications This patient has no known medications.
--- OUTSIDE RECORDS SUMMARY | 2019-04-25 01:59 | XMS REPORT | Summary of Care ---
:1945 Author Organization [facility] Address [address] [place] [address] Care Team Providers Name Role Phone Jed James MD Unavailable Alexus Smith MD Primary Care Provider Reason for Visit Reason Comments Knee Pain Left knee pain, denies injury Encounter Details Date Type Department Care Team Description 04/03/2019 Office Visit [facility] Orthopaedic Grant Bhatti Left hip pain (Primary Surgery- Juan J Bagley MD Dx) [address], [address] [place] [address] [place], [place] [phone] Allergies Active Allergy Reactions Severity Noted Date Comments Hydrocodone Hives High 06/20/2013 itchy Morphine Rash Low 12/18/2015 documented as of this encounter (statuses as of 04/05/2019) Medications Medication Sig Dispensed Refills Start Date End Date Status pramipexole (MIRAPEX) 1 TK 2 TS PO QHS 3 11/09/2015 Active mg tablet VENLAFAXINE HCL Take by mouth. 0 Active (EFFEXOR ORAL) multivitamin tablet Take 1 tablet by 0 Active mouth. antiox.mv Take by mouth. 0 Active no.10/omeg3s/lut/ifeanyi (I-CAPS ORAL) MULTIVITAMIN ORAL Take by mouth. 0 Active Takes Prevagen. cholestyramine light DISSOLVE 1 2154.6 g 3 09/09/2018 Active (CHOLESTYRAMINE LIGHT) SCOOPFUL IN FLUID 4 gram FOUR TIMES DAILY. powderIndications: Toxin exposure diazePAM 5 mg tablet 0 11/25/2017 Active ibuprofen 600 mg tablet Take 600 mg by 0 Active mouth. Oxycodone 10 mg Tab 0 11/25/2017 Active rOPINIRole 0.5 mg TK 1 T PO QHS 0 12/27/2016 Active tablet SERTraline 50 mg tablet 0 03/15/2019 Active diclofenac 75 mg EC Take 1 tablet by 60 tablet 1 04/03/2019 Active tabletIndications: Left mouth 2 (two) hip pain times daily with meals. documented as of this encounter (statuses as of 04/05/2019) Active Problems No known active problemsdocumented as of this encounter (statuses as of 2019) Social History Tobacco Use Types Packs/Day Years Used Date Former Smoker 0.5 8 Quit: 02/06/1974 Smokeless Tobacco: Never Used Alcohol Use Drinks/Week oz/Week Comments Yes 0 Standard drinks or equivalent 1.0 1 Glasses of wine Sex Assigned at Date Recorded Not on file Job Start Date Occupation Industry Not on file Not on file Not on file Travel History Travel Start Travel End No recent travel history available. documented as of this encounter Last Filed Vital Signs Vital Sign Reading Time Taken Comments Blood Pressure 160/73 04/03/2019 2:59 PM CERTIFIED ADAPTED PHYSICAL EDUCATOR Pulse 74 04/03/2019 2:59 PM CERTIFIED ADAPTED PHYSICAL EDUCATOR Temperature - - Respiratory Rate 20 04/03/2019 2:59 PM CERTIFIED ADAPTED PHYSICAL EDUCATOR Oxygen Saturation - - Inhaled Oxygen Concentration - - Weight 79.4 kg (175 lb) 04/03/2019 2:59 PM CERTIFIED ADAPTED PHYSICAL EDUCATOR Height 172.7 cm (5' 8") 04/03/2019 2:59 PM CERTIFIED ADAPTED PHYSICAL EDUCATOR Body Mass Index 26.61 04/03/2019 2:59 PM CERTIFIED ADAPTED PHYSICAL EDUCATOR documented in this encounter Progress Notes Grant Bhatti MD - 04/03/2019 3:15 PM CST Kim Mera is a 74 year old female Chief Complaint Patient presents with Knee Pain Left knee pain, denies injury Vitals: 04/03/19 1459 BP: (!) 160/73 BP Location: Left arm Patient Position: Sitting BP CUFF SIZE: Adult Medium Pulse: 74 Resp: 20 Weight: 79.4 kg (175 lb) Height: 68" (172.7 cm) [id number] - [place], [place] - [facility] [address] AT [facility] & [address] All Vitals taken, allergies and all medications reviewed, fall risk assessed. Pain level 5/10. MAI COOLEY MA 04/03/2019 3:04 PM Kim Mera is a 74 year old female. Knee Pain The incident occurred 5 to 7 days ago. The incident occurred at home. There was no injury mechanism.The pain is present in the left knee. The quality of the pain is described as aching. The pain is dalila severity of 4/10. The pain is moderate. The pain has been worsening since onset. Associated symptoms include an inability to bear weight. The symptoms are aggravated by movement and weight bearing. She has tried NSAIDs, non-weight bearing and acetaminophen for the symptoms. The treatment provided norelief. Allergies Kim is allergic to hydrocodone and morphine. Medications Outpatient Medications Prior to Visit Medication Sig Dispense Refill diazePAM 5 mg tablet Oxycodone 10 mg Tab rOPINIRole 0.5 mg tablet TK 1 T PO QHS ibuprofen 600 mg tablet Take 600 mg by mouth. SERTraline 50 mg tablet cholestyramine light (CHOLESTYRAMINE LIGHT) 4 gram powder DISSOLVE 1 SCOOPFUL IN FLUID FOUR TIMES DAILY. 2154.6 g 3 antiox.mv no.10/omeg3s/lut/ifeanyi (I-CAPS ORAL) Take by mouth. MULTIVITAMIN ORAL Take by mouth. Takes Prevagen. multivitamin tablet Take 1 tablet by mouth. pramipexole (MIRAPEX) 1 mg tablet TK 2 TS PO QHS 3 VENLAFAXINE HCL (EFFEXOR ORAL) Take by mouth. No facility-administered medications prior to visit. Histories Past Medical History: Diagnosis Date Depression Fibromyalgia Hearing loss with tinnitus, bilateral now Macular degeneration right eye worse than left eye Past Surgical History: Procedure Laterality Date APPENDECTOMY done during hysterectomy EYE SURGERY HERNIA REPAIR HYSTERECTOMY due to endometriosis, cervix removed, ovaries removed. RECTOCELE REPAIR surgery complicated by fecal incontinence with soft or liquid stools. 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 Social Needs Financial resource strain: Not on file Food insecurity: Worry: Not on file Inability: Not on file Transportation needs: Medical: Not on file Non-medical: Not on file Tobacco Use Smoking status: Former Smoker Packs/day: 0.50 Years: 8.00 Pack years: 4.00 Last attempt to quit: 02/06/1974 Years since quittin.1 Smokeless tobacco: Never Used Substance and Sexual Activity Alcohol use: Yes Alcohol/week: 1.0 standard drinks Types: 1 Glasses of wine per week Drug use: Not Currently Sexual activity: Not on file Lifestyle Physical activity: Days per week: Not on file Minutes per session: Not on file Stress: Not on file Relationships Social connections: Talks on phone: Not on file Gets together: Not on file Attends lutheran service: Not on file Active member of club or organization: Not on file Attends meetings of clubs or organizations: Not on file Relationship status: Not on file Intimate partner violence: Fear of current or ex partner: Not on file Emotionally abused: Not on file Physically abused: Not on file Forced sexual activity: Not on file Other Topics Concern Not on file Social History Narrative Lives with . 1 story home. 09/03/2018. Family History Problem Relation Age of Onset Pancreatic Cancer Mother Hypertension Mother Depression Mother [place] (myocardial infarction) Father Liver failure Father due to alcohol Review of Systems Constitutional: Negative. HENT: Negative. Eyes: Negative. Respiratory: Negative. Breasts: Negative. Cardiovascular: Negative. Gastrointestinal: Negative. Genitourinary: Negative. Musculoskeletal: Positive for joint swelling. Skin: Negative. Neurological: Negative. Psychiatric/Behavioral: Negative. Endocrine: Endocrine negative Vital Signs Ht 68" (172.7 cm) | Wt 79.4 kg (175 lb) | BMI 26.61 kg/m Physical Exam Musculoskeletal: Left knee: She exhibits decreased range of motion. Tenderness found. Medial joint line tenderness noted. General: Well-developed well-nourished oriented to person place and time HEENT normocephalic atraumatic atraumatic pupils equal round reactive to light extraocular muscles intact Cervical thoracic and lumbar spine without focal deficit normal kyphosis and lordosis Chest clear to auscultation and percussion Cardiovascular regular rate and rhythm without gallop rub or murmur soft without organomegaly Normal bowel sounds Neurologic: Focal myotome or dermatomal deficits Vascular: Intact symmetrical bilateral upper and lower extremities Skin without stasis varicosities or breakdown Extremities without cyanosis clubbing or edema Lymphatics no peripheral lymphedema Psych normal mood and affect. Neurovascular function is intact. To include brisk capillary refill warm pink skin active motor function and sensory function intact. Nursing note and vitals reviewed. Assessment/Plan Diagnosis left knee pain Plan will prescribe diclofenac today. If she is not better in one week she may call the office and request an MRI of her knee. Follow up prn. documented in this encounter Plan of Treatment Health Maintenance Due Date Last Done Comments HEPATITIS C (HCV) SCREEN 1945 DTaP,Tdap,and Td Vaccines (1 - Tdap) 1957 Breast Cancer Screening (MAMMOGRAM) 1986 COLONOSCOPY 02/16/1996 Zoster Recombinant Vaccine (SHINGRIX) (1 of 2) 02/16/1996 Medicare Wellness Visit 2011 Osteoporosis Screening 2011 PNEUMOCOCCAL VACCINES 65+ (1 of 2 - PCV13) 2011 INFLUENZA VACCINE (#1) 2018 documented as of this encounter Results Not on filedocumented in this encounter Visit Diagnoses Diagnosis Left hip pain - Primary Pain in joint, pelvic region and thigh documented in this encounter Insurance Payer Benefit Plan / Subscriber ID Effective Dates Phone Address Type Group MEDICARE MEDICARE PART xxxxxxxxxxx 2008-[place]acilio [phone] Medicare [address] [id number] [place] [phone] documented as of this encounter
--- OUTSIDE RECORDS SUMMARY | 2019-04-25 01:59 | XMS REPORT | Summary of Care ---
:1945 Author Organization [facility] Address [address] [place] [address] Care Team Providers Name Role Phone Jed James MD Unavailable Alexus Smith MD Primary Care Provider Encounter Details Date Type Department Care Team Description 04/03/2019 [facility] [address] [place] [address] [place] [address] [place], [place] [phone] Allergies Active Allergy Reactions Severity Noted Date Comments Hydrocodone Hives High 06/20/2013 itchy Morphine Rash Low 12/18/2015 documented as of this encounter (statuses as of 04/04/2019) Medications Medication Sig Dispensed Refills Start Date [...] as of this encounter (statuses as of 04/04/2019) Active Problems No known active problemsdocumented as [...] of this encounter Last Filed Vital Signs Not on filedocumented in this encounter Plan of Treatment Name Type Priority Associated Diagnoses Date/Time XR KNEE <3 VW LEFT IMAGING Routine Pain 04/03/2019 3:22 PM JAVA J2EE LEAD Name Type Priority Associated Diagnoses Order Schedule XR KNEE <3 VW LEFT IMAGING Routine Pain 1 Occurrences starting 04/03/2019 until 04/03/2019 Health Maintenance Due Date Last Done Comments [...] filedocumented in this encounter Visit Diagnoses Diagnosis Pain Generalized pain documented in this encounter Insurance Payer Benefit Plan / Subscriber ID Effective Dates Phone Address Type Group MEDICARE MEDICARE PART xxxxxxxxxxx 2008-[place] [phone] [address] Medicare A & B t [id number] [place] [phone] documented as of this encounter
--- OUTSIDE RECORDS SUMMARY | 2019-04-25 02:00 | XMS REPORT | Summary of Care ---
:1945 Author Organization [facility] - [facility] Address [address] [place] [address] Care Team Providers Name Role Phone Jed James MD Unavailable Alexus Smith MD Primary Care Provider Reason for Visit Reason Comments Knee Pain Left knee pain, denies injury Encounter Details Date Type Department Care Team Description 04/03/2019 Office Visit [facility] Orthopaedic Grant Bhatti Left hip pain (Primary Surgery- Juan J Bagley MD Dx) [address], [address] [place] [address] [place], [place] [phone] Allergies Active Allergy Reactions Severity Noted [...] Comments Blood Pressure 160/73 04/03/2019 2:59 PM BROOM STITCHER Pulse 74 04/03/2019 2:59 PM BROOM STITCHER Temperature - - Respiratory Rate 20 04/03/2019 2:59 PM BROOM STITCHER Oxygen Saturation - - Inhaled Oxygen Concentration - - Weight 79.4 kg (175 lb) 04/03/2019 2:59 PM BROOM STITCHER Height 172.7 cm (5' 8") 04/03/2019 2:59 PM BROOM STITCHER Body Mass Index 26.61 04/03/2019 2:59 PM BROOM STITCHER documented in this encounter Progress Notes Grant [...] kg (175 lb) Height: 68" (172.7 cm) [id number] - [place], [place] - [facility] [address] AT [facility] & [address] All Vitals taken, allergies and all [...] file Gets together: Not on file Attends restoration service: Not on file Active member of [...] Pancreatic Cancer Mother Hypertension Mother Depression Mother [place] (myocardial infarction) Father Liver failure Father due [...] [address] Medicare A & B t 2 [id number] [place] [phone] documented as of this encounter
--- OUTSIDE RECORDS SUMMARY | 2019-04-25 02:00 | XMS REPORT | Summary of Care ---
:1945 Author Organization [facility] Address [address] [place] [id number] Care Team Providers Name Role Phone Jed James MD Unavailable Alexus Smith MD Primary Care Provider Reason for Referral MRI/CAT Scan (Routine) Status Reason Specialty Diagnoses / Referred By Referred To Procedures Contact Contact New Request Diagnostic Diagnoses Left hip pain Andreas Tadeo, Radiology Procedures MR KNEE LEFT WO CONTRAST PAC [address] [place] [address] Reason for Visit Reason Comments Rx Concern/Question Encounter Details Date Type Department Care Team Description 04/17/2019 Telephone [facility] Orthopaedic Grant Bhatti, Rx Concern/ Question Surgery- Juan J WRIGHT [address] [facility] [address] [place] [address] [place], [place] [phone] Allergies Active Allergy Reactions Severity Noted Date Comments Hydrocodone Hives High 06/20/2013 itchy Morphine Rash Low 12/18/2015 documented as of this encounter (statuses as of 04/17/2019) Medications Medication Sig Dispensed Refills Start Date [...] EC Take 1 tablet by 60 tablet 0 04/10/2019 Active tabletIndications: Left mouth 2 (two) hip pain times daily with meals. documented as of this encounter (statuses as of 04/17/2019) Active Problems No known active problemsdocumented as [...] of Treatment Name Type Priority Associated Diagnoses Order Schedule MR KNEE LEFT WO CONTRAST IMAGING Routine Left hip pain Expected: 04/17/2019 , Expires: 04/16/2020 Health Maintenance Due Date Last Done Comments [...] BOX Medicare A & B t 2 [id number] [place] [id number] documented as of this encounter
--- OUTSIDE RECORDS SUMMARY | 2019-04-25 02:00 | XMS REPORT | Summary of Care ---
:1945 Author Organization [facility] Address [address] [place] [address] Care Team Providers Name Role Phone Jed James MD Unavailable Alexus Smith MD Primary Care Provider Reason for Visit Reason Comments Refill Request Encounter Details Date Type Department Care Team Description 04/10/2019 Telephone [facility] Orthopaedic Grant Bhatti MD Refill Request Surgery- Britt [address] [facility], [place] [address] [place], [place] [phone] Allergies Active Allergy Reactions Severity Noted Date Comments Hydrocodone Hives High 06/20/2013 itchy Morphine Rash Low 12/18/2015 documented as of this encounter (statuses as of 04/10/2019) Medications Medication Sig Dispensed Refills Start Date End Date Status pramipexole TK 2 TS PO 3 11/09/2015 Active (MIRAPEX) 1 mg QHS tablet VENLAFAXINE HCL Take by 0 Active (EFFEXOR ORAL) mouth. multivitamin tablet Take 1 tablet 0 Active by mouth. antiox.mv Take by 0 Active no.10/omeg3s/lut/ze mouth. a (I-CAPS ORAL) MULTIVITAMIN ORAL Take by 0 Active mouth. Takes Prevagen. cholestyramine DISSOLVE 1 2154.6 g 3 09/09/2018 Active light SCOOPFUL IN (CHOLESTYRAMINE FLUID FOUR LIGHT) 4 gram TIMES DAILY. powderIndications: Toxin exposure diazePAM 5 mg 0 11/25/2017 Active tablet ibuprofen 600 mg Take 600 mg 0 Active tablet by mouth. Oxycodone 10 mg Tab 0 11/25/2017 Active rOPINIRole 0.5 mg TK 1 T PO QHS 0 12/27/2016 Active tablet SERTraline 50 mg 0 03/15/2019 Active tablet diclofenac 75 mg EC Take 1 tablet 60 tablet 0 04/10/2019 Active tabletIndications: by mouth 2 Left hip pain (two) times daily with meals. diclofenac 75 mg EC Take 1 tablet 60 tablet 1 04/03/2019 Discontinued tabletIndications: by mouth 2 0 (Reorder) Left hip pain (two) times daily with meals. documented as of this encounter (statuses as of 04/10/2019) Active Problems No known active problemsdocumented as [...] filedocumented in this encounter Plan of Treatment Health [...] encounter Visit Diagnoses Diagnosis Left hip pain Pain in joint, pelvic region and thigh documented in this encounter Insurance Payer Benefit Plan / Subscriber ID Effective Dates Phone Address Type Group MEDICARE MEDICARE PART xxxxxxxxxxx 2008-Bacilio [phone] [address] Medicare A & B t 2 [id number] [place] [id number] documented as of this encounter
--- NOTE | 2019-04-25 02:34 | EDPHYS ---
Physician Documentation [facility] Name: Kim Mera Age: 74 yrs Sex: Female : 1945 Arrival Date: 04/25/2019 Time: 01:57 Bed 19 Private MD: YAQUELIN Physician Cotl Kahn HPI: 04/24 02:26 This 74 yrs old Female presents to ER via Ambulatory with complaints of Leg ruben Pain, Leg Swelling. 02:26 The patient presents with pain, swelling. The complaints affect the left knee and left ruben daniel. Context: The problem was sustained at an unknown site, resulted from an unknown cause, the patient can fully bear weight. Onset: The symptoms/episode began/occurred 30 day(s) ago. Modifying factors: The symptoms are alleviated by nothing. the symptoms are aggravated by weight bearing. Associated signs and symptoms: The patient has no apparent associated signs or symptoms. Severity of symptoms: At their worst the symptoms were moderate, in the emergency department the symptoms are unchanged. The patient has experienced similar episodes in the past, a few times. Historical: - Allergies: 02:15 adhesive tape; mg2 02:15 HYDROCODONE; mg2 02:15 Hydromorphone; mg2 02:15 Morphine; mg2 - Home Meds: 02:15 Effexor Oral [Active]; Multiple Vitamins Oral tab daily [Active]; Requip 0.5 mg Oral mg2 tab 3 tabs nightly [Active]; Tramadol Oral [Active]; - PMHx: 02:15 Arthritis; Firbomyalgia; High Cholesterol; restless leg syndrome; mg2 - PSHx: 02:15 back and neck surgery; mg2 - Immunization history:: Flu vaccine is not up to date. - Social history:: Smoking status: Patient denies any tobacco usage or history of. Patient uses alcohol, weekly. Patient/guardian denies using street drugs, IV drugs. - Family history:: not pertinent. ROS: 02:26 Constitutional: Negative for fever, chills, and weight loss, Eyes: Negative for injury, ruben pain, redness, and discharge, ENT: Negative for injury, pain, and discharge, Neck: Negative for injury, pain, and swelling, Cardiovascular: Negative for chest pain, palpitations, and edema, Respiratory: Negative for shortness of breath, cough, wheezing, and pleuritic chest pain, Abdomen/GI: Negative for abdominal pain, nausea, vomiting, diarrhea, and constipation, Back: Negative for injury and pain, : Negative for injury, bleeding, discharge, and swelling, Skin: Negative for injury, rash, and discoloration, Neuro: Negative for headache, weakness, numbness, tingling, and seizure, Psych: Negative for depression, anxiety, suicide ideation, homicidal ideation, and hallucinations, Allergy/Immunology: Negative for hives, rash, and allergies, Endocrine: Negative for neck swelling, polydipsia, polyuria, polyphagia, and marked weight changes, Hematologic/Lymphatic: Negative for swollen nodes, abnormal bleeding, and unusual bruising. 02:26 MS/extremity: Positive for pain, of the left knee and left daniel. Exam: 02:26 Constitutional: This is a well developed, well nourished patient who is awake, alert, ruben and in no acute distress. Head/Face: Normocephalic, atraumatic. Eyes: Pupils equal round and reactive to light, extra-ocular motions intact. Lids and lashes normal. Conjunctiva and sclera are non-icteric and not injected. Cornea within normal limits. Periorbital areas with no swelling, redness, or edema. ENT: Nares patent. No nasal discharge, no septal abnormalities noted. Tympanic membranes are normal and external auditory canals are clear. Oropharynx with no redness, swelling, or masses, exudates, or evidence of obstruction, uvula midline. Mucous membranes moist. Neck: Trachea midline, no thyromegaly or masses palpated, and no cervical lymphadenopathy. Supple, full range of motion without nuchal rigidity, or vertebral point tenderness. No Meningismus. Chest/axilla: Normal chest wall appearance and motion. Nontender with no deformity. No lesions are appreciated. Cardiovascular: Regular rate and rhythm with a normal S1 and S2. No gallops, murmurs, or rubs. Normal PMI, no JVD. No pulse deficits. Respiratory: Lungs have equal breath sounds bilaterally, clear to auscultation and percussion. No rales, rhonchi or wheezes noted. No increased work of breathing, no retractions or nasal flaring. Abdomen/GI: Soft, non-tender, with normal bowel sounds. No distension or tympany. No guarding or rebound. No evidence of tenderness throughout. Back: No spinal tenderness. No costovertebral tenderness. Full range of motion. Female : Normal external genitalia. Skin: Warm, dry with normal turgor. Normal color with no rashes, no lesions, and no evidence of cellulitis. Neuro: Awake and alert, GCS 15, oriented to person, place, time, and situation. Cranial nerves II-XII grossly intact. Motor strength 5/5 in all extremities. Sensory grossly intact. Cerebellar exam normal. Normal gait. Psych: Awake, alert, with orientation to person, place and time. Behavior, mood, and affect are within normal limits. 02:26 Musculoskeletal/extremity: ROM: no acute changes, intact in all extremities, Circulation is intact in all extremities. Sensation intact. Compartment Syndrome exam of affected extremity: is normal. Joints: All joints appear normal with full range of motion. Weight bearing: able to fully bear weight, DVT Exam: negative Homans' sign noted on exam, no appreciated bluish discoloration, no erythema, no increased warmth, pain, swelling, tenderness. Vital Signs: 02:10 BP 115 / 45; Pulse 67; Resp 18; Temp 97.5; Pulse Ox 98% on R/A; Weight 81.65 kg; Height mg2 5 ft. 9 in. (175.26 cm); Pain 5/10; 02:10 Body Mass Index 26.58 (81.65 kg, 175.26 cm) mg2 MDM: 02:06 Patient medically screened. [facility] 02:29 Data reviewed: vital signs, nurses notes, lab test result(s), radiologic studies, plain ruben films. Administered Medications: No medications were administered Disposition: 04/25/19 02:33 Patient left the facility after being seen by provider. Preliminary diagnosis is Pain in left lower leg. - Patient left due to unknown. - Condition is Stable. - Problem is new. - Symptoms have improved. Signatures: Dispatcher [employer] Colt Carbone MD MD cha Gardose, Michele RN RN mg2 Corrections: (The following items were deleted from the chart) 02:33 02:33 04/25/2019 02:33 Patient left the facility after being seen by provider. [facility] Preliminary diagnosis is Pain in left lower leg. Reason stated they are leaving due to unknown. Condition is Stable. Problem is new. Symptoms have improved. [facility] 02:42 02:25 Tib Fib Left+RAD.RAD.BRZ ordered. EDMS EDMS 02:46 02:33 04/25/2019 02:33 Patient left the facility after being seen by provider. mg2 Preliminary diagnosis is Pain in left lower leg. Reason stated they are leaving due to unknown. Condition is Stable. Problem is new. Symptoms have improved. ruben
--- NOTE | 2019-04-25 02:34 | ER ---
Nurse's Notes [facility] Name: Kim Mera Age: 74 yrs Sex: Female : 1945 Arrival Date: 04/25/2019 Time: 01:57 Bed 19 Private MD: Diagnosis: Pain in left lower leg Presentation: 04/24 02:10 Chief complaint: Patient states: i have left leg pain and swelling for few weeks now. mg2 denies trauma. i was seen by dr phillips and he wants me to do an MRI but its gonna be in 2 weeks. Coronavirus screen: The patient has NOT traveled to a country currently being monitored by the [facility] within the last 14 days. Proceed with normal triage procedures. The patient has NOT had contact with any known and/or suspected case of coronavirus. Proceed with normal triage procedures. Ebola Screen: No symptoms or risks identified at this time. Initial Sepsis Screen: Does the patient meet any 2 criteria? No. Patient's initial sepsis screen is negative. Does the patient have a suspected source of infection? No. Patient's initial sepsis screen is negative. Risk Assessment: Do you want to hurt yourself or someone else? Patient reports no desire to harm self or others. 02:10 Method Of Arrival: Ambulatory mg2 02:10 Acuity: JUAN 4 mg2 Triage Assessment: 02:15 General: Appears in no apparent distress. comfortable, Behavior is calm, cooperative. mg2 Pain: Complains of pain in left knee. Historical: - Allergies: 02:15 adhesive tape; mg2 02:15 HYDROCODONE; mg2 02:15 Hydromorphone; mg2 02:15 Morphine; mg2 - Home Meds: 02:15 Effexor Oral [Active]; Multiple Vitamins Oral tab daily [Active]; Requip 0.5 mg Oral mg2 tab 3 tabs nightly [Active]; Tramadol Oral [Active]; - PMHx: 02:15 Arthritis; Firbomyalgia; High Cholesterol; restless leg syndrome; mg2 - PSHx: 02:15 back and neck surgery; mg2 - Immunization history:: Flu vaccine is not up to date. - Social history:: Smoking status: Patient denies any tobacco usage or history of. Patient uses alcohol, weekly. Patient/guardian denies using street drugs, IV drugs. - Family history:: not pertinent. Screenin:13 Abuse screen: Denies threats or abuse. Denies injuries from another. Nutritional mg2 screening: No deficits noted. 02:13 Tuberculosis screening: No symptoms or risk factors identified. Fall Risk None mg2 identified. Assessment: 02:33 Reassessment: i called her and said she is not coming back. she will just go to Dr velma Phillips and do theMRI. Vital Signs: 02:10 BP 115 / 45; Pulse 67; Resp 18; Temp 97.5; Pulse Ox 98% on R/A; Weight 81.65 kg; Height mg2 5 ft. 9 in. (175.26 cm); Pain 5/10; 02:10 Body Mass Index 26.58 (81.65 kg, 175.26 cm) mg2 ED Course: 01:57 Patient arrived in ED. cl3 01:58 Colt Kahn MD is Attending Physician. ruben 02:03 Sandip Mccain, RN is Primary Nurse. mg2 02:13 Triage completed. mg2 02:13 No provider procedures requiring assistance completed. mg2 02:13 Patient did not have IV access during this emergency room visit. mg2 02:15 Arm band placed on. mg2 02:33 Asaf Bates MD is Referral Physician. ruben Administered Medications: No medications were administered Outcome: 02:33 Eloped from patient exam room, after seeing physician Time discovered patient gone: mg2 April 25, 2019 at 02:31 02:33 Condition: stable 02:46 Patient left the ED. mg2 Signatures: Colt Kahn MD MD cha Gardose, Michele, RN RN mg2 Blossom Sutton cl3
[2019-04-25 03:11] VITALS: BP 115/45; TEMP 97.5; O2SAT 98
== END 2019-04-25 02:46 | disposition left against medical advice (07) ==
LOC: ER 01:55
DX: M79.662 Pain in left lower leg (principal); Z88.6 Allergy status to analgesic agent
CPT/HCPCS: 99281

== ENCOUNTER 2019-08-07 06:40 | Day surgery (SDC) | payer OTHER ==
[2019-08-02 12:23] LABS: Absolute Lymphocytes (CBC) 1.3 K/uL (0.7-4.9); Basophils % 0.6 % (0-1.3); Hematocrit 44.4 % (36.0-45.0); Lymphocytes % 25.4 % (15.3-44.8); MPV 8.7 fL (7.6-11.3); RBC Red Blood Cell Count 5.09 M/uL (3.86-4.86)
[2019-08-02 12:42] LABS: Albumin 3.7 g/dL (3.4-5.0); Bilirubin Direct 0.1 mg/dL (0-0.2); Bilirubin Total 0.5 mg/dL (0.2-1.0); Potassium 4.5 mmol/L (3.5-5.1); Protein, Total 6.8 g/dL (6.4-8.2)
--- NOTE | 2019-08-02 13:16 | RAD REPORT ---
EXAM DESCRIPTION: Kiana Peña (2 Views)08/02/2019 12:49 pm CLINICAL HISTORY: Abdominal pain/preoperative exam for cholecystectomy COMPARISON: February 2019 FINDINGS: The lungs appear clear of acute infiltrate. The heart is normal size IMPRESSION: No acute abnormalities displayed
--- NOTE | 2019-08-02 18:13 | EKG ---
Test Date: 2019-08-02 Test Time: 12:09:30 Song Writer: HAY MEASUREMENT RESULTS: Intervals: Rate: 53 UT: 146 QRSD: 102 QT: 458 QTc: 429 [place]: P: 46 UT: 146 QRS: -13 T: 66 INTERPRETIVE STATEMENTS: Sinus bradycardia Otherwise normal ECG Compared to ECG 02/10/2019 14:08:32 Sinus rhythm no longer present Electronically Signed On 08-02-19 18:12:25 CDT by Sandor Martinez
--- OUTSIDE RECORDS SUMMARY | 2019-08-07 06:44 | XMS REPORT | Continuity of Care Document ---
:1945 Author Organization [facility] t Address [address] [place] [address] Care Team Providers Name Role Phone Paulo WRIGHT C Primary Care Physician Davy WRIGHT, L Attending Clinician Jordon Arroyo MD Attending Clinician Branden WRIGHT, Cele. Attending Clinician Chi Yang MD Attending Clinician HADNOTT Attending Clinician Unavailable Payers Payer Name Policy Type Policy Number Effective Date Expiration Date [place] AETNA xxxxxxxx 2013 [place] MEDICAREAETNA 00:00:00 [facility] MEDICARE HMO/[facility] 4-PresentHMO Problems Condition Condition Condition Status Onset Resolution Last Treating Co mments Source Name Details Category Date Date Treatment Clinician Date Cervical Cervical Disease Active [place] stenosis stenosis 2-08 Method i of spinal of spinal 00:00: st canal canal 00 Cervical Cervical Problem Active [facility] spine [facility] [place] [facility] Lumbar Lumbar Problem Active [facility] spine pain [facility] [place] [facility] Allergies, Adverse Reactions, Alerts Allergy Allergy Status Severity Reaction(s) Onset Inactive Treating Comm ents Source Name Type Date Date Clinician Morphine Propensi Active Rash [place] ty to 03-06 [facility] adverse 00:00: st reaction 00 s to drug Hydrocod Propensi Active Hives itchy [place] one ty to 15 [facility] adverse 00:00: st reaction 00 s to drug Family History Family Member Diagnosis Comments Start Date Stop Date Source Natural father Heart disease Delroy Suarez Natural mother Cancer [facility] thodist Social History Social Habit Start Date Stop Date Quantity Comments Source History of tobacco Current smoker Sergei hobbs [facility] use Sex Assigned At [facility] ethodist Cigarettes smoked 2019-02-18 2019-02-18 [place] [facility] current (pack per 00:00:00 00:00:00 day) - Reported Cigarette 2019-02-18 2019-02-18 [place] [facility] pack-years 00:00:00 00:00:00 Alcohol intake 2019-02-18 2019-02-18 Current drinker [place] [facility] 00:00:00 00:00:00 of alcohol (finding) Tobacco Comment 2019-02-18 2019-02-18 Quit 40 yrs [facility] 00:00:00 00:00:00 Smoking Status Start Date Stop Date Source Former smoker 2019-02-18 00:00:00 2019-02-18 00:00:00 [place] [facility] Medications Ordered Filled Start Stop Current Ordering Indication Dosage Frequency Signature Comments Components Source Medication Medication Date Date Medication? Clinician (SIG) Name Name pramipexole 2017-02 Yes 1mg QD Take 1 mg [place] (MIRAPEX) 1 0-24 by mouth Meth floyd MG tablet 15:11: nightly. st 23 multivitami 2017-02 Yes 1{tbl} QD Take 1 Ho faby n 0-24 tablet by Method[facility] m (THERAGRAN) 15:11: mouth st tablet 23 daily. diazePAM 2017-02 Yes [place] (VALIUM) 5 0-20 [facility] MG tablet 00:00: st 00 oxyCODone 2017-02 Yes [place] (ROXICODONE 0-20 [facility] ) 10 MG 00:00: st tablet 00 venlafaxine Yes Elaine n XR 8-20 [facility] (EFFEXOR-XR 00:00: st ) 150 MG 24 00 hr capsule rOPINIRole 2016-02 Yes TK 1 T PO Sergei hobbs (REQUIP) 1-21 QHS [facility] 0.5 MG 00:00: st tablet 00 Procedures Procedure Date / Time Performed Performing Clinician Sourc e MRI LUMBAR SPINE WO 2019-02-28 13:46:35 Cecil Arroyo [facility] CONTRAST Jordon XR LUMBAR SPINE 2019-02-18 13:33:32 Cecil Arroyo [facility] COMPLETE 4+ VW Jordon XR PELVIS 1 OR 2 VW 2019-01-21 14:44:20 Hasmukh Otero [facility] MRI LUMBAR SPINE WO 2018-10-10 11:43:00 Sussy Yang [facility] CONTRAST Plan of Care Planned Activity Planned Date Details Comments Source Future Scheduled 2019-09-07 INFLUENZA VACCINE [place] [facility] Test 00:00:00 [code = INFLUENZA VACCINE] Future Scheduled 2011 65+ PNEUMOCOCCAL [facility] Test 00:00:00 VACCINE (1 of 2 - PCV13) [code = 65+ PNEUMOCOCCAL VACCINE (1 of 2 - PCV13)] Future Scheduled 1996-02-16 BREAST CANCER [facility] [facility] Test 00:00:00 SCREENING [code = BREAST CANCER SCREENING] Future Scheduled 1996-02-16 COLONOSCOPY SCREENING [place] [facility] Test 00:00:00 [code = COLONOSCOPY SCREENING] Future Scheduled 1996-02-16 SHINGLES VACCINES (#1) [place] [facility] Test 00:00:00 [code = SHINGLES VACCINES (#1)] Encounters Start End Encounter Admission Attending Care Care Encounter Source Date/Time Date/Time Type Type Clinicians Facility Department ID 2019-07-18 2019-07-18 Office [facility] [id number] 08:04:03 08:18:07 Visit [facility] [id number] Surgical [id number] Specialti [id number] es 198 [place] 2016-07-21 2016-07-21 Appointmen [facility] [id number] [facility] 14:00:00 14:00:00 Jh Alvarez M.D. [place] WILLIAM, Physici M.D. ans Results Test Description Test Time Test Comments Results Result Sour e Comments MRI Lumbar Spine 2019-02-07 [place] Padilla on Wo Contrast 3 Radiology Results Method ist 16:12:10 02/28/2019 4:15 PM CSTEXAMINATION: MRI LUMBAR SPINE WO CONTRASTCLINICAL HISTORY: M54.40 Lumbago with sciatica unspecified side, G89.29 Other chronic pain, lumbar radiculopathyCOMPARIS ON: MRI lumbar spine from 10/10/2018. X-rays of the lumbar spine from 02/18/2019.TECHNIQUE: Multiplanar multisequence noncontrast enhanced examination was performed of the Lumbar spine.FINDINGS:There is decreased T2 signal intensity in the lumbar discs. There are degenerative changes of the sacroiliac joints.L5-S1: There is greater peripheral disc space narrowing with inward concavity of the inferior L5 endplate. There is dorsal spondylosis slightly indenting the anterior epidural fat. There is laminectomy and resection of the ligamentum flavum with enlargement of the posterior canal. There is involution of the posterior paraspinal muscles. There are facet hypertrophic changes and moderate foraminal stenosis.L4-5: There is severe disc space narrowing with surrounding endplate degenerative signal changes. There is mild dorsal spondylosis. There is resection of the right facet joint and portions of the right ligamentum flavum and lamina with enlargement of the posterior right foramen. There is some narrowing of the anterior inferior right foramen from spondylosis without mass effect on the nerve. There are degenerative changes with mild left foraminal stenosis.L3-4: There is moderate posterior disc space narrowing. There is bulge indenting the subarachnoid space near the nerve roots. There are facet hypertrophic changes. There is posterior epidural fat and lateral epidural fat with indentation of the lateral subarachnoid space greater on the left and some indentation of the posterior subarachnoid space. Overall, there is moderate narrowing of the AP dimension of the central subarachnoid space, although fluid surrounds the nerve roots in the subarachnoid space. There is mild foraminal narrowing.L2-3: There is greater posterior disc space narrowing. There is bulge indenting the subarachnoid space. There is posterior epidural fat and mild narrowing of the AP dimension of the central subarachnoid space. There are facet hypertrophic changes. There is no significant foraminal stenosis.L1-2: There is severe disc space narrowing with inward concavity of the endplates. There is dorsal spondylosis and central protrusion indenting the subarachnoid space. There is posterior epidural fat and mild narrowing of the AP dimension of the central subarachnoid space There is facet hypertrophic changes with mild foraminal stenosis.The distal cord ends at the mid L1 level and is grossly unremarkable.The study was not performed for good evaluation of the soft tissue structures in the abdomen and pelvis.IMPRESSION: Degenerative and postoperative changes. There is narrowing of the subarachnoid space, more prominent at the L3-4 level, although there is fluid in the subarachnoid space in the region of the nerve roots. There is foraminal stenosis, more prominent at the L5-S1 level.Degenerative changes of the sacroiliac joints.[facility]-[id number] W
--- OUTSIDE RECORDS SUMMARY | 2019-08-07 06:44 | XMS REPORT | Clinical Summary ---
:1945 Author Organization [facility] Address [address] [place] [address] Care Team Providers Name Role Phone Simona Bates MD Primary Care Provider Allergies Active Allergy Reactions Severity Noted Date Comments Hydrocodone Hives High 06/20/2013 itchy Morphine Rash Low 03/06/2017 Medications Medication Sig Dispensed Refills Start Date End Date Status pramipexole (MIRAPEX) 1 Take 1 mg by 0 Active MG tablet mouth nightly. rOPINIRole (REQUIP) 0.5 TK 1 T PO QHS 3 12/27/2016 Active MG tablet multivitamin Take 1 tablet by 0 Active (THERAGRAN) tablet mouth daily. diazePAM (VALIUM) 5 MG 0 11/25/2017 Active tablet oxyCODone (ROXICODONE) 0 11/25/2017 Active 10 MG tablet venlafaxine XR 0 09/25/2017 Acti ve (EFFEXOR-XR) 150 MG 24 hr capsule Active Problems Problem Noted Date Cervical stenosis of spinal canal 03/16/2017 Encounters Date Type Specialty Care Team Description 03/05/2019 Office Visit Orthopedic Surgery Denilson Vanegas, Lumbar ra diculopathy (Primary Dx); Cecil Ruvalcaba Degeneration of lumbar intervertebral disc 02/28/2019 Hospital Encounter Radiology Denilson Vanegas, Chronic m idline low Cecil Ruvalcaba, back pain with sciatica, sciat ica laterality unsp ecified 02/18/2019 Office Visit Orthopedic Surgery Denilson Vanegas, 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, sciatica laterality unspecified (Primary Dx); Cecil Ruvalcaba, Low back pain, unspecified back pain laterality, unspecified chronicity, unspecified whether sciatica present; Lumbar radiculo sarbjit, acute 01/21/2019 Office Visit Orthopedic Surgery Hasmukh Otero low back MD Gilberto pain (Primary D x) 10/10/2018 Hospital Encounter Radiology Sussy Yang Lumbar ra diculopathy MD Chi 10/03/2018 Transcribe Orders Access Sussy Yang Lumbar rad iculopathy MD Chi (Primary Dx) after 08/06/2018 Family History Medical History Relation Name Comments Heart disease Father Jacob donahue Cancer Mother Lina Sullivan Pancreatic can cer Relation Name Status Comments Father Jacob donahue Mother Lina Sullivan Social History Tobacco Use Types Packs/Day Years Used Date Former Smoker Cigarettes 0.5 15 Quit: 1989 Smokeless Tobacco: Never Used Comments: Quit 40 yrs Alcohol Use Drinks/Week oz/Week Comments Yes 7 Glasses of wine 7.0 Sex Assigned at Date Recorded Not on file Job Start Date Occupation Industry Not on file Not on file Not on file Travel History Travel Start Travel End No recent travel history available. Last Filed Vital Signs Not on file Plan of Treatment Health Maintenance Due Date Last Done Comments BREAST CANCER SCREENING 02/16/1996 COLONOSCOPY SCREENING 02/16/1996 SHINGLES VACCINES (#1) 02/16/1996 65+ PNEUMOCOCCAL VACCINE (1 of 2 - PCV13) 2011 INFLUENZA VACCINE 09/07/2019 Implants Implanted Type Area Baggage Porter Head Device Shelf Model / Identifier Expiration Serial / Lot Date Bone Matriz Osteocel Pro Small - [id number] - [id number] Human N/ A: NUVASIVE 03/21/2021 [id number] / Implanted: Qty: 1 on 03/16/2017 by Sussy Yang MD at [facility] Tissue N/A [id number] / Implants [id number] Bone Matriz Osteocel Pro Small - [id number] - [id number] Human N/ A: NUVASIVE 03/21/2021 [id number] / Implanted: Qty: 1 on 03/16/2017 by Sussy Yang MD at [facility] Tissue N/A [id number] / Implants [id number] Bone Matriz Osteocel Pro Small - [id number] - [id number] Human N/ A: NUVASIVE 03/21/2021 [id number] / Implanted: Qty: 1 on 03/16/2017 by Sussy Yang MD at [facility] Tissue N/A [id number] / Implants [id number] Distraction Pin- 12mm - [id number] [id number] IMPLANT N/A: NUVASIVE SPINE [id number] / Implanted: 03/16/2017 at [facility] (Quantity not on file) DEVICES N/A / Contour Spacer Small 5mm - [id number] [id number] IMPLANT N/A: NUVASIVE SP INE [id number] / Implanted: 03/16/2017 at [facility] (Quantity not on file) DEVICES N/A / Anterior Cervical Plating Nuvasive 3-Lev el [place] Revolution Plate,50mm - [id number] [id number] IMPLANT N/A: NUVASIVE SPINE [id number] / Implanted: 03/16/2017 at [facility] (Quantity not on file) DEVICES N/A / Contour Spacer Small 5mm - [id number] [id number] IMPLANT N/A: NUVASIVE SP INE [id number] / Implanted: 03/16/2017 at [facility] (Quantity not on file) DEVICES N/A / Spacer Spinal Cntord Med 5mm - [id number] Spinal N/A: NUVASIVE [id number] / Implanted: 03/16/2017 at [facility] (Quantity not on file) Implants N/A / Screw Spinal Sohail Slf-Tap 4x15mm [place] Revolution Acp - [id number] Spinal N/A: NUVASIVE [id number] / Implanted: 03/16/2017 at [facility] (Quantity not on file) Implants N/A / Screw Spinal Fxd Slf-Tap 4x15mm [place] Revolution Acp - [id number] Spinal N/A: NUVASIVE [id number] / Implanted: 03/16/2017 at [facility] (Quantity not on file) Implants N/A / Matrix Hmstc Floseal 10ml W/ Humn F2 - [id number] Surgical N/A: PARRY 07/23/2018 [id number] / Implanted: 03/16/2017 at [facility] (Quantity not on file) Imp lants; N/A [employer]ALTHC[employer] JILL / Expanders; [id number] Extenders; Surgical Wires Matrix Hmstc Floseal 10ml W/ Humn F2 - [id number] Surgical N/A: PARRY 07/23/2018 [id number] / Implanted: 03/16/2017 at [facility] (Quantity not on file) Imp lants; N/A HEALTHCARE JILL / Expanders; [id number] Extenders; Surgical Wires Procedures Procedure Name Priority Date/Time Associated Diagnosis Comme nts MRI LUMBAR SPINE Routine 02/28/2019 1:46 Chronic midline low Results for this WO CONTRAST PM FLAT SURFACER JEWEL back pain with procedure are in sciatica, sciatica the resul ts laterality unspecified secti on. XR LUMBAR SPINE Routine 02/18/2019 1:33 Low back pain, Result s for this COMPLETE 4+ VW PM FLAT [employer] JEWEL unspecified back pain proc edure are in laterality, the results unspecified section. chronicity, unspecified whether sciatica present XR PELVIS 1 OR 2 Routine 01/21/2019 2:44 Left hip pain Result s for this VW PM [employer] JEWEL procedure are i n the results section. MRI LUMBAR SPINE Routine 10/10/2018 11:43 Lumbar radiculopathy Results for this WO CONTRAST AM CDT procedure are i n the results section. after 08/06/2018 Results MRI Lumbar Spine Wo Contrast (02/28/2019 1:46 PM FLAT SURFAC[employer] JEWEL)Only the most recent of2 resultswithin the time period is included. Specimen Narrative Performed At This result has an attachment that is no t available. EXAMINATION: MRI LUMBAR SPINE WO CONTRAST HM [facility] CLINICAL HISTORY: M54.40 Lumbago with sc iatica unspecified side, G89.29 Other chronic pain, lumbar radiculopathy COMPARISON: MRI lumbar spine from 05/2018. X-rays of the lumbar spine from 02/18/2019. TECHNIQUE: Multiplanar multisequence non contrast enhanced examination was performed of the Lumbar spine. FINDINGS: There is decreased T2 signal intensity i n the lumbar discs. There are degenerative changes of the sacroiliac joints. L5-S1: There is greater peripheral disc space narrowing with inward concavity of the inferior L5 endplate. There is dorsal spondylosis slightly indenting the anterior epidural fat. There is laminectomy and resection of the ligamentum flavum with enlargement of the posterior canal. Ther e is involution of the posterior paraspinal muscles. There are facet hypertrophic changes and moderate foraminal stenosis. L4-5: There is severe disc space narrowi ng with surrounding endplate degenerative signal changes. There is mild dorsal spondylosis. There is resection of the right facet joint and portions of the right ligamentum flavum and lamina with enlargement of the posterior right foramen. There is some narrowing of the anterior inferior right foramen from spondylosis without mass effect on the nerve. There are degenerative changes with mild left foraminal stenosis. L3-4: There is moderate posterior disc s pace narrowing. There is bulge indenting the subarachnoid space near the nerve roots. There are facet hypertrophic changes. There is posterior epidural fat and la teral epidural fat with indentation of the lateral subarachnoid space greater on the left a nd some indentation of the posterior subarachnoid space. Overall, there is moderate narrowing of the AP dimension of the central subarachnoid space, although fluid surrounds the nerve roots in the subarachnoid space. There is mild foraminal narrowing. L2-3: There is greater posterior disc sp ellie narrowing. There is bulge indenting the subarachnoid space. There is posterior epidural fat and mild narrowing of the AP dimension of the central subarachnoid space. There are facet hypertrophic changes. There is no significant foraminal stenosis. L1-2: There is severe disc space narrowi ng with inward concavity of the endplates. There is dorsal spondylosis and central protrusion indenting the subarachnoid space. There is posterior epidural fat an d mild narrowing of the AP dimension of the central subarachnoid space There is facet hypert rophic changes with mild foraminal stenosis. The distal cord ends at the mid L1 level and is grossl y unremarkable. The study was not performed for good mesha luation of the soft tissue structures in the abdomen and pelvis. IMPRESSION: Degenerative and postoperative changes. There is narrowing of the subarachnoid space, more prominent at the L3-4 level, although there is fluid in the subarachnoid space in the region of the nerve roots . There is foraminal stenosis, more prominent at the L5-S1 level. Degenerative changes of the sacroiliac joints. [id number] Procedure Note Hm Interface, Radiology Results Incoming - 02/28/2019 4:15 PM FLAT SURFACER JEWEL EXAMINATION: MRI LUMBAR SPINE WO CONTRAST CLINICAL HISTORY: M54.40 Lumbago with sc iatica unspecified side, G89.29 Other chronic pain, lumbar radiculopathy COMPARISON: MRI lumbar spine from 10/10. X-rays of the lumbar spine from 02/18/2019. TECHNIQUE: Multiplanar multisequence non contrast enhanced examination was performed of the Lumbar spine. FINDINGS: There is decreased T2 signal intensity i n the lumbar discs. There are degenerative changes of the sacroiliac joints. L5-S1: There is greater peripheral disc space narrowing with inward concavity of the inferior L5 endplate. There is dorsal spondylosis slightly indenting the anterior epidural fat. There is laminectomy and resection of the ligamentum flavum with enlargement of the posterior canal. Ther e is involution of the posterior paraspinal muscles. There are facet hypertrophic changes and moderate foraminal stenosis. L4-5: There is severe disc space narrowi ng with surrounding endplate degenerative signal changes. There is mild dorsal spondylosis. There is resection of the right facet joint and portions of the right ligamentum flavum and lamina with enlargement of th e posterior right foramen. There is some narrowing of the anterior inferior right foramen from spondylosis without mass effect on the nerve. There are degenerative changes with mild left foraminal stenosis. L3-4: There is moderate posterior disc s pace narrowing. There is bulge indenting the subarachnoid space near the nerve roots. There are facet hypertrophic changes. There is posterior epidural fat and lateral epidural fat with indentation of the lateral subarachnoid space greater on the left a nd some indentation of the posterior subarachnoid space. Overall, there is moderate narrowing of the AP dimension of the central subarachnoid space, although fluid surrounds the nerve roots in the subarachnoid space. There is mild foraminal narrowing . L2-3: There is greater posterior disc sp ellie narrowing. There is bulge indenting the subarachnoid space. There is posterior epidural fat and mild narrowing of the AP dimension of the central subarachnoid space. There are facet hypertrophic changes. There is no significant foraminal stenosis. L1-2: There is severe disc space narrowi ng with inward concavity of the endplates. There is dorsal spondylosis and central protrusion indenting the subarachnoid space. There is posterior epidural fat and mild narrowing of the AP dimension of the central subarachnoid space There is facet hypert rophic changes with mild foraminal stenosis. The distal cord ends at the mid L1 level and is grossly unremarkable. The study was not performed for good mesha luation of the soft tissue structures in the abdomen and pelvis. IMPRESSION: Degenerative and postoperative changes. There is narrowing of the subarachnoid space, more prominent at the L3-4 level, although there is fluid in the subarachnoid space in the region of the nerve roots. There is foraminal stenosis, more prominent at th e L5-S1 level. Degenerative changes of the sacroiliac j oints. [id number] Performing Organization Address City/State/Zipcode Phone Number [facility] [address] [place] [address] XR Lumbar Spine Complete 4+ Vw (02/18/2019 1:33 PM FLAT SURFACER JEWEL) Specimen Narrative Performed At This result has an attachment that is no t available. X-ray lumbar spine multiple views shows advanced spondylosis at the lower [facility] lumbar segments of the L4-5 from 5 1 with disc space collapse and endplate changes. L2 superior endplate fracture unknown chronicity. Bu t when compared to MRI from October 2018 appears to be chronic. Performing Organization Address [facility] Phone Number [facility] [address] [place] [address] XR Pelvis 1 Or 2 Vw (01/21/2019 2:44 PM FLAT SURFACER JEWEL) Specimen Narrative Performed At This result has an attachment that is no t available. AP pelvis and lateral x-ray of the left hip shows prior percutaneous [facility] pinning of a femoral neck fracture. The alignment of the fracture appears to be satisfactory and healed. There is no significa nt AVN. There does appear to be moderate to severe medial arthritic ovalle es. Performing Organization Address [facility] Phone Number [facility] [address] [place] [address] after 08/06/2018 Advance Directives For more information, please contact: [phone] Type Date Recorded Patient Ems Manager Explanati on Advance Directives, Living Will 06/14/2017 10:27 AM and Medical Power of Windshield Wiper Repairer
--- OUTSIDE RECORDS SUMMARY | 2019-08-07 06:45 | XMS REPORT | Summary of Care ---
:1945 Author Organization [facility] Address [address] [place] [address] Care Team Providers Name Role Phone Koki James MD Unavailable Cele Smith MD Primary Care Provider Reason for Visit Reason Comments Follow-up MRI Knee Pain Left knee pain Encounter Details Date Type Department Care Team Description 07/18/2019 Office Visit [facility] Grant Bhatti Primary oste oarthritis Orthopaedic Surgery- MD Yudi of left knee (Primary [place] [address]) [address] [facility], [facility] [place] [address] [place] [phone] Allergies Active Allergy Reactions Severity Noted Date Comments Hydrocodone Hives High 06/20/2013 itchy Morphine Rash Low 12/18/2015 documented as of this encounter (statuses as of 07/18/2019) Medications Medication Sig Dispensed Refills Start Date End Date Status pramipexole (MIRAPEX) 1 TK 2 TS PO QHS 3 11/09/2015 Active mg tablet VENLAFAXINE HCL Take by mouth. 0 Active (EFFEXOR ORAL) multivitamin tablet Take 1 tablet by 0 Active mouth. antiox.mv Take by mouth. 0 Acti ve no.10/omeg3s/lut/ifeanyi (I-CAPS ORAL) MULTIVITAMIN ORAL Take by mouth. 0 Active Takes Prevagen. cholestyramine light DISSOLVE 1 8577.6 g 3 09/09/2018 Active (CHOLESTYRAMINE LIGHT) SCOOPFUL [...] (two) hip pain times daily with meals. DICLOFENAC 75 mg EC TAKE 1 TABLET BY 60 tablet 0 05/17/2019 Active tabletIndications: Left MOUTH TWICE DAILY hip pain WITH MEALS traMADol 50 mg tablet 0 07/10/2019 Active diclofenac 75 mg EC Take 1 tablet by 60 tablet 1 07/18/2019 Active tablet mouth 2 (two) times daily with meals. documented as of this encounter (statuses as of 07/18/2019) Active Problems No known active problemsdocumented as of this encounter (statuses as of 07/18/2019) Social History Tobacco Use Types Packs/Day Years Used Date Former Smoker 0.5 8 Quit: 02/06/18 76 Smokeless Tobacco: Never Used Alcohol Use Drinks/Week oz/Week Comments Yes 0 Standard drinks or equival ent 1.0 1 Glasses of wine Sex Assigned at Date Recorded Not on file Job Start Date Occupation Industry Not on file Not on file Not on file Travel History Travel Start Travel End No recent travel history available. COVID-19 Exposure Response Date Recorded In the last month, have you been in contact with No / Unsure 07/18/2019 8:04 AM CDT someone who was confirmed or suspected to have Coronavirus / COVID-19? documented as of this encounter Last Filed Vital Signs Vital Sign Reading Time Taken Comments Blood Pressure 133/69 07/18/2019 8:04 AM CDT Pulse 73 07/18/2019 8:04 AM CDT Temperature - - Respiratory Rate 18 07/18/2019 8:04 AM CDT Oxygen Saturation - - Inhaled Oxygen Concentration - - Weight 79.4 kg (175 lb) 07/18/2019 8:04 AM CDT Height 172.7 cm (5' 8") 07/18/2019 8:04 AM CDT Body Mass Index 26.61 07/18/2019 8:04 AM CDT documented in this encounter Progress Notes Grant Bhatti MD - 07/18/2019 8:00 AM CDT Vitals: 07/18/19 0804 BP: 133/69 BP Location: Left arm Patient Position: Sitting BP CUFF SIZE: Adult Medium Pulse: 73 Resp: 18 Weight: 79.4 kg (175 lb) Height: 68" (172.7 cm) Chief Complaint Patient presents with Follow-up MRI Knee Pain Left knee pain [facility] #[id number] - [place], [place] - [facility] [place] Patient presents to clinic for a follow up on MRI of left knee [facility] All Vitals taken, allergies and all medications reviewed, fall risk assessed. Pain level 4/10. MAI COOLEY MA 07/18/2019 8:11 AM Kim Mera is a 74 year old female. Knee Pain The incident occurred more than 1 week ago. The incident occurred at home. There was no injury mechanism. The pain is present in the left knee. The quality of the pain is described as aching, burning and stabbing. The pain is at a severity of 7/10. The pain is moderate. The pain has been worsening since onset. Associated symptoms include an inability to bear weight. The symptoms are aggravated by movement and weight bearing. She has tried non-weight bearing, ice and elevation for the symptoms. The treatment provided mild relief. Allergies Kim is allergic to hydrocodone and morphine. Medications Outpatient Medications Prior to Visit Medication Sig Dispense Refill traMADol 50 mg tablet DICLOFENAC 75 mg EC tablet TAKE 1 TABLET BY MOUTH TWICE DAILY WITH MEALS 60 tablet 0 diclofenac 75 mg EC tablet Take 1 tablet by mouth 2 (two) times daily with meals. 60 tablet 0 diazePAM 5 mg tablet ibuprofen 600 mg tablet Take 600 mg by mouth. Oxycodone 10 mg Tab rOPINIRole 0.5 mg tablet TK 1 T PO QHS SERTraline 50 mg tablet cholestyramine light (CHOLESTYRAMINE [...] Last attempt to quit: 02/06/1974 Years since quittin.4 Smokeless tobacco: Never Used Substance and Sexual [...] file Gets together: Not on file Attends oriental orthodox service: Not on file Active member of [...] Pancreatic Cancer Mother Hypertension Mother Depression Mother OR (myocardial infarction) Father Liver failure Father due [...] function intact. Nursing note and vitals reviewed. HISTORY: Pain in the left knee. Mechanical knee symptoms such as locking/catching/snapping/crepitus. TECHNIQUE: MR imaging of the left knee was done in multiple projections using 1.5T MR unit and standard protocol. FINDINGS: BONE AND JOINT: Trace amount of joint effusion noted. No fluid distended Tadeo's cyst or popliteal bursa. Slightly high riding and laterally tracking patella altagracia noted. 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 Less severe chondromalacia detected in the rest of the left knee. MENISCI: No displaced tear visualized in the medial meniscus or in the lateral meniscus. LIGAMENTS AND TENDONS: Patellar tendon, quadriceps complex, cruciate ligaments and collateral ligaments are intact. CONCLUSIONS: 1. Trace left knee joint effusion, mild degenerative changes in the left knee. 2. No torn meniscus or torn ligaments detected. Assessment/Plan Diagnosis Right knee degenerative changes Plan Patient's knee(s) is/are wearing out and will eventually need a total knee replacement but willtake preventative measures prior to discussing surgery. Will take this in a stepwise fashion first beginning with NSAIDs. Next would be a cortisone injection. A cortisone injection will only help with the inflammatory response. Cortisone injections will be given no less than 3 months in a 3 year time frame. Hymalecular weight hylaronic acid injection series would follow cortisone injections. If the response is well to the cortisone this is usually an indication of how one will respond to Hymalecular weight hylaronic injections. These injections are given once weekly to the affected knee for 3 weeks. This can give at least 6 months of relief in 3 out of 4 people. If these steps do not help the last option would be to have a total knee replacement. The Rehab department will reach out to discuss making an appointment for an informational session called Total Replacement Boot Camp. This does not mean you are ready for a total knee replacement, it's simply preparation should you eventually decide to have/need a joint replacement. Will prescribe diclofenac today for pain and inflammation. Next step would be a cortisone injection to her knee. documented in this encounter Plan of Treatment Health Maintenance Due Date Last Done Comments HEPATITIS C (HCV) SCREEN 1945 DTaP,Tdap,and Td Vaccines (1 - Tdap) 1957 Breast Cancer Screening (MAMMOGRAM) 1986 COLONOSCOPY 02/16/1996 Zoster Recombinant Vaccine (SHINGRIX) (1 of 2) 02/16/1996 Medicare Wellness Visit 2011 Osteoporosis Screening 2011 PNEUMOCOCCAL VACCINES 65+ (1 of 2 - PCV13) 2011 INFLUENZA VACCINE (Season Ended) 2019 Depression Screening 04/03/2020 04/03/2019 documented as of this encounter Results Not on filedocumented in this encounter Visit Diagnoses Diagnosis Primary osteoarthritis of left knee - Pr imary Primary localized osteoarthrosis, lower leg documented in this encounter Insurance Payer Benefit Plan / Subscriber ID Effective Phone Address T e Group Dates MEDICARE MEDICARE PART A xxxxxxxxxxx 2008-Pres [phone] [address] Medicare & B ent [id number] [place] [phone] [facility] [id number] 2019-Pres Indemnity AND LIFE BENEFITS ent documented as of this encounter
--- OUTSIDE RECORDS SUMMARY | 2019-08-07 06:45 | XMS REPORT | Summary of Care ---
:1945 Author Organization [facility] - [facility] Address [address] [place] [address] Care Team Providers Name Role Phone Koki James MD Unavailable Cele Smith MD Primary Care Provider Reason for Visit Reason Comments Prescription Encounter Details Date Type Department Care Team Description 07/10/2019 Telephone [facility] Orthopaedic Grant Bhatti MD Prescription Surgery- [place] [address] [facility] [address] [facility], [place] [address] [place], [place] [phone] Allergies Active Allergy Reactions Severity Noted Date Comments Hydrocodone Hives High 06/20/2013 itchy Morphine Rash Low 12/18/2015 documented as of this encounter (statuses as of 07/10/2019) Medications Medication Sig Dispensed Refills Start Date [...] MOUTH TWICE DAILY hip pain WITH MEALS documented as of this encounter (statuses as of 07/10/2019) Active Problems No known active problemsdocumented as of this encounter (statuses as of 07/10/2019) Social History Tobacco Use Types Packs/Day Years [...] filedocumented in this encounter Plan of Treatment Date Type Specialty Care Team Description 07/18/2019 Office Visit Orthopedic Surgery Airam Bhatti MD [address] [phone] Health Maintenance Due Date Last Done Comments [...] Results Not on filedocumented in this encounter Insurance Payer Benefit Plan / Subscriber ID Effective Dates Phone Addre ss Type Group MEDICARE MEDICARE PART A xxxxxxxxxxx 2008-Bacilio [phone] Medicare & B t 82 [id number] [place] [phone] AETNA AETNA INDEMNITY [id number] 2019-Bacilio rodriguez documented as of this encounter
--- OUTSIDE RECORDS SUMMARY | 2019-08-07 06:45 | XMS REPORT | Summary of Care ---
:1945 Author Organization [facility] - [facility] Address [address] [place] [address] Care Team Providers Name Role Phone Koki James MD Unavailable Cele Smith MD Primary Care Provider Reason for Visit Reason Comments Prescription Encounter Details Date Type Department Care Team Description 07/10/2019 Telephone [facility] Orthopaedic Grant Bhatti MD Prescription Surgery- [place] [address] [facility] [address] [facility], [address] [place] [address] [address] [place], [place] [phone] Allergies Active Allergy Reactions Severity Noted Date [...] Visit Orthopedic Surgery Airam Bhatti MD [address] [phone] Health Maintenance Due Date Last Done [...] [address] B[address] Medicare & B t [id number] [place] [phone] AETNA AETNA INDEMNITY [id number] 2019-Bacilio rodriguez documented as of this encounter
--- OUTSIDE RECORDS SUMMARY | 2019-08-07 06:46 | XMS REPORT | Summary of Care ---
:1945 Author Organization [facility] Address [address] [place] [address] Care Team Providers Name Role Phone Koki James MD Unavailable Cele Smith MD Primary Care Provider Reason for Visit Reason Comments Follow-up MRI Knee Pain Left knee pain Encounter Details Date Type Department Care Team Description 07/18/2019 Office Visit [facility] Grant Bhatti Primary oste oarthritis Orthopaedic Surgery- [place] Yudi of left knee (Primary [place] [address]) [address] [facility], [facility] [place] [address] [place] [phone] Allergies Active Allergy Reactions Severity Noted Date [...] Active Takes Prevagen. cholestyramine light DISSOLVE 1 4564.6 g 3 09/09/2018 Active (CHOLESTYRAMINE LIGHT) SCOOPFUL [...] Follow-up MRI Knee Pain Left knee pain [id number] - [place], [place] - [facility] [address] Patient presents to clinic for a follow up on MRI of left knee Films in [facility] All Vitals taken, allergies and all [...] file Gets together: Not on file Attends worship service: Not on file Active member of [...] Pancreatic Cancer Mother Hypertension Mother Depression Mother [place] (myocardial infarction) Father Liver failure Father due [...] FROY X Medicare & B ent [id number] [place] [phone] [facility] [id number] 2019-Pres Indemnity AND LIFE BENEFITS ent documented as of this encounter
[2019-08-07] MEDS ORDERED: Ringers Lactate 1,000 ML IV ONE (06:53)
[2019-08-07] MEDS ORDERED: SCOPOLAMINE HYDROBROMIDE PATCH TD ONE ×2 (07:15→07:19)
[2019-08-07] MEDS ORDERED: CEFOXITIN/SWI 1gm 1 GM/10 ML SYR ONE (07:19)
[2019-08-07] MEDS ORDERED: ONDANSETRON 4 MG/2 ML VIAL ONE ×2 (07:33→08:16)
[2019-08-07] MEDS ORDERED: propofoL 200 MG/20 ML VIAL IV ONE (07:33)
[2019-08-07] MEDS ORDERED: LIDOCAINE 2% MPF 5 ML VIAL ONE (07:33)
[2019-08-07] MEDS ORDERED: FENTANYL CITR 100 MCG/2 ML ONE (07:33)
[2019-08-07] MEDS ORDERED: ROCURONIUM 50 MG/5 ML VIAL IV ONE (07:36)
[2019-08-07] MEDS ORDERED: KETOROLAC 30 MG/ML INJ ONE (08:13)
[2019-08-07] MEDS ORDERED: dexAMETHasone 10 MG/ML VIAL ONE (08:13)
[2019-08-07] MEDS ORDERED: GLYCOPYRROLATE 0.2 MG/ML SYR ONE (08:36)
[2019-08-07] MEDS ORDERED: NEOSTIGMINE 1 MG/ML -5 ML ONE (08:47)
[2019-08-07] MEDS: MEPERIDINE HCL 25 MG/ML SYR ONE ×2 (08:55→09:00)
[2019-08-07] MEDS: HYDROMORPHONE HCL 2 MG/ML inj ONE ×2 (09:20→09:25)
[2019-08-07] MEDS ORDERED: PROMETHAZINE INJ 25 MG/ML AMP ONE (09:21)
--- NOTE | 2019-08-07 10:13 | P.BOP ---
Preoperative diagnosis: acute cholecystititis, symptomatic cholelithiasis Postoperative diagnosis: same, intrabdominal adhesions Primary procedure: Laparoscopic cholecystectomy Secondary procedure: Laparoscopic lysis of adhesions Tip Printer: ELIZABETH ACKERMAN (CLERICAL WAREHOUSEMAN) Estimated blood loss: <10cc Specimen: gb Findings: as above Anesthesia: General Complications: None Transferred to: Recovery Room Condition: Good
[2019-08-07 10:31] VITALS: TEMP 97.8
[2019-08-07 11:00] VITALS: BP 110/52; O2SAT 97
--- NOTE | 2019-08-07 11:01 | OP ---
Date of Procedure: 08/07/2019 Surgeon: Kirill Guerrero MD Preoperative Diagnoses: Right upper quadrant abdominal pain, acute cholecystitis, symptomatic cholel ithiasis. Postoperative Diagnoses: Right upper quadrant abdominal pain acute cholecystitis symptomatic choleli thiasis plus intraabdominal adhesions. Procedures: 1.Laparoscopic cholecystectomy. 2.Laparoscopic lysis of adhesions. Anesthesia: General plus local. Complications: None. History: This is a case of a 74-year-old patient, who comes to us with abdominal pain on and off in the recurrent area, mostly postprandial, have extensive workup and shows to have a symptomatic cholel ithiasis and sent to my office for laparoscopic possible open cholecystectomy with benefits, alternat francesco, and risks of that explained to the patient, which include, but not limited to infection, bleedi ng, damage to adjacent structures, anesthesia complication, choledocholithiasis, bile leak, pancreati tis, AK, and . She also understands this may not relieve her symptoms. She might need more chi n one surgical intervention. She understood, signed a consent. Description Of Procedure: The patient brought to the operating room, placed in supine position, anes thesia was done without complication. Abdominal area was prepped and draped in a sterile fashion. M arcaine 0.5% was injected for local anesthetic followed by sharp incision of the skin in the infraumb ilical region. Incision was carried down to fascia which was opened under direct vision. Peritoneum was encountered, opened under direct vision. Vicryl #1 placed inside the fascia. Severo trocar was carefully introduced. Pneumoperitoneum was obtained. I placed 3 more trocars in the right upper qu adrant under direct visualization. This allowed me to visualize the area of right upper quadrant wit h multiple omental adhesions to the liver and to the gallbladder. So before we started the procedure , we have to then use Endo Marko connected to Bovie cauterizer and proceeded to carefully remove tho se adhesions up to the gallbladder into the liver in order for us to continue the surgery. Once thes e adhesions were done with scissors and made sure, we have hemostasis, then after that, we put a gras per again in the fundus of the gallbladder, another grasper in the infundibulum retracting the gallbl adder in the inferolateral fashion exposing the triangle of Calot obtaining critical views. Cystic d uct and cystic artery were clearly isolated, freed circumferentially and a connection between those a nd the gallbladder were clearly identified. I proceeded to ligate those by using at least 3 clips pr oximal, 1 clip distal, ligation in middle. Same was done with the cystic artery. No bile leak. No bleeding. The gallbladder was removed from liver using Bovie cauterizer, removed from abdominal cavi ty using EndoCatch through an umbilical incision. The area was inspected once again, no bile leak, n o bleeding. Clips were intact. At that moment, I proceeded to also check the area of the lysis of a dhesions with no bleeding. At that moment, I proceeded to remove the trocars under direct vision. D eflated the pneumoperitoneum. Closed the fascia with #1 Vicryl, irrigated, subcutaneous tissue close d with 0 chromic and skin in a subcuticular fashion with 3-0 chromic and Steri-Strips on top. Sponge count, instrument counts correct. Patient tolerated the procedure well. Patient was sent to recove ry in stable condition. SALINA/JUAN Voice ID: [id number] Report ID: [id number]
--- NOTE | 2019-08-07 11:07 | DS ---
Diagnoses: Acute cholecystitis, symptomatic cholelithiasis, intraabdominal adhesions. Procedures: Laparoscopic cholecystectomy, laparoscopic lysis of adhesions. Disposition: Home. Activity: As tolerated, no heavy lifting. Followup: Follow up in my office in 1 week, call for appointment [phone]. Keep area dry for 48 hour s, then may shower. Keep steri-strips intact. The patient is taking already tramadol at home. She will continue with the same pain medication. SALINA/JUAN Voice ID: [id number] Report ID: [id number]
== END 2019-08-07 11:50 | disposition home or self-care (01) ==
LOC: OR 06:40
PROVIDERS: ATTEND Surgery
PROC: 0DNU4ZZ Release Omentum, Percutaneous Endoscopic Approach (ICD-10-PCS; 2019-08-07)
PROC: 0FT44ZZ Resection of Gallbladder, Percutaneous Endoscopic Approach (ICD-10-PCS; principal; 2019-08-07 07:30)
DX: K80.12 Calculus of gallbladder with acute and chronic cholecystitis without obstruction (principal); K66.0 Peritoneal adhesions (postprocedural) (postinfection); Z11.59 Encounter for screening for other viral diseases; G25.81 Restless legs syndrome; F41.9 Anxiety disorder, unspecified; F32.9 Major depressive disorder, single episode, unspecified; Z88.6 Allergy status to analgesic agent; Z91.09 Other allergy status, other than to drugs and biological substances; Z82.49 Family history of ischemic heart disease and other diseases of the circulatory system; Z80.0 Family history of malignant neoplasm of digestive organs
CPT/HCPCS: 47562; 93005; 85025; 80048; 36415; 82150; 80076; 88304; 83690; 71046; 49329; U0002; J2704; J2550; J1170; J3010; J1100; J2175; J2710; J7120; J2405 ×2

== ENCOUNTER 2019-11-09 14:16 | Emergency (ER) | payer OTHER ==
[2019-11-09 16:04] LABS: Urine Blood NEGATIVE (NEG); Urine Glucose NEGATIVE (NEG); Urine Protein NEGATIVE (NEG); Urine Specific Gravity 1.025 (1.005-1.030)
[2019-11-09 16:04] LABS: Urine Bacteria <20 /HPF (<20); Urine Culture Reflex Order NOT NEEDED; Urine RBC NONE SEEN /HPF (NONE SEEN)
--- NOTE | 2019-11-09 16:48 | ER ---
Nurse's Notes [facility] Name: Kim Mera Age: 74 yrs Sex: Female : 1945 Arrival Date: 11/09/2019 Time: 14:17 Bed Waiting Private MD: Cele Bates C Diagnosis: Presentation: 11/08 15:05 Chief complaint: Patient states: Last night, was having trouble going to the bathroom, ca1 just a trickle. This morning, it had a little bit of a stream but not much. Reports pain on anterior L lateral abdomen. Denies burning, urinary urgency and frequency. "Also while I am in here, my R upper arm has been hurting for a while now, keeping me up at night, radiates to my R hand and R side of neck". Denies injury. Coronavirus screen: Client denies travel out of the [place] in the last 14 days. At this time, the client does not indicate any symptoms associated with coronavirus-19. Ebola Screen: Patient negative for fever greater than or equal to 101.5 degrees Fahrenheit, and additional compatible Ebola Virus Disease symptoms Patient denies exposure to infectious person. Patient denies travel to an Ebola-affected area in the 21 days before illness onset. No symptoms or risks identified at this time. Initial Sepsis Screen: Does the patient meet any 2 criteria? No. Patient's initial sepsis screen is negative. Does the patient have a suspected source of infection? No. Patient's initial sepsis screen is negative. Risk Assessment: Do you want to hurt yourself or someone else? Patient reports no desire to harm self or others. Onset of symptoms was November 09, 2019. 15:05 Method Of Arrival: Ambulatory ca1 15:05 Acuity: JUAN 3 ca1 Historical: - Allergies: 15:11 adhesive tape; ca1 15:11 HYDROCODONE; ca1 15:11 Hydromorphone; ca1 15:11 Morphine; ca1 - PMHx: 15:11 Arthritis; Firbomyalgia; High Cholesterol; restless leg syndrome; ca1 - PSHx: 15:11 back and neck surgery; ca1 - Immunization history:: Adult Immunizations up to date. - Social history:: Smoking status: Patient denies any tobacco usage or history of. Assessment: 16:43 Reassessment: Called pt's name out in [facility]. Registration staff reports pt eloped. . aa5 Vital Signs: 15:05 BP 113 / 65; Pulse 60; Resp 17 S; Temp 98.7(TE); Pulse Ox 97% on R/A; Weight 80.74 kg ca1 (R); Height 5 ft. 9 in. (175.26 cm) (R); Pain 3/10; 15:05 Body Mass Index 26.29 (80.74 kg, 175.26 cm) ca1 ED Course: 14:17 Patient arrived in ED. ag5 14:17 Cele Bates MD is Private Physician. ag5 15:10 Triage completed. ca1 15:11 Arm band placed on right wrist. ca1 16:09 Magdy Beasley MD is Attending Physician. kdr Administered Medications: No medications were administered Outcome: 16:43 Patient left the ED. aa5 16:43 Eloped from waiting room, Time discovered patient gone: November 09, 2019 at 16:43 aa5 Signatures: Magdy Beasley MD MD [facility] America Isblel RN RN aa5 Melissa Paez RN RN [facility] Katya Zheng ag5 Corrections: (The following items were deleted from the chart) 16:48 16:47 Patient left the ED. aa5 aa5 16:49 16:45 Reassessment: Called pt's name out in ER lobby. Registration staff reports pt aa5 eloped. . aa5
[2019-11-09 16:52] VITALS: BP 113/65; TEMP 98.7; O2SAT 97
--- OUTSIDE RECORDS SUMMARY | 2019-11-13 23:20 | XMS REPORT | Clinical Summary ---
:1945 Author Organization [facility] Address [address] [place] [address] Care Team Providers Name Role Phone Simona [...] Visit Orthopedic Surgery Hasmukh Otero low back AMD Yolie pain (Primary D x) after 11/12/2018 Surgical History Surgery Date Site/Laterality Comments INGUINAL HERNIA REPAIR 02/06/2015 - Right 02/06/2016 LAMINECTOMY 02/06/1995 - 02/06/1996 BACK SURGERY x 2 HIP SURGERY Left pins AUGMENTATION, BREAST, WITH Bilateral PROSTHETIC IMPLANT DISCECTOMY, CERVICAL, WITH 03/16/2017 Back/Right Proce dure: C4-C7 ANTERIOR FUSION, ANTERIOR APPROACH CERVIC AL DISCECTOMY AND FUSION AND POSSI BLE C3-C7 W/ ALLOGRAFT, AU TOGRAFT; Surgeon: Sussy Yang MD; Location: [facility]; Service: Neurosurgery; Laterality: Righ t; Medical devices from this surgery are in t he Implants section . ABDOMINAL SURGERY 02/06/2013 - Hernia 02/05/2014 ORTHOPEDIC SURGERY 02/06/2003 - Pins in broke n left hip 02/06/2004 SPINE SURGERY Laminectomy cerv ical fusion Medical History Medical History Date Comments Anesthesia PONV/NFHAP PONV (postoperative nausea and vomiting) High cholesterol Wears glasses for readers Exercises daily walk for 30 mins dino ly Hearing loss right side worse Tinnitus Claustrophobia tight spaces, person al space Fibromyalgia Anxiety Depression Arthritis GERD (gastroesophageal reflux disease) 6 mo GI bleed 1month Family History Medical History Relation Name Comments [...] Assigned at Date Recorded Not on file Last Filed Vital Signs Not on file Plan of Treatment Health Maintenance Due Date Last Done Comments BREAST CANCER SCREENING 02/16/1996 COLONOSCOPY SCREENING 02/16/1996 SHINGLES VACCINES (#1) 02/16/1996 65+ PNEUMOCOCCAL VACCINE (1 of 1 - PPSV23) 2011 INFLUENZA VACCINE 09/07/2019 Implants Implanted Type Area Business Administration Teacher Device Shelf Model / Identifier Expiration Serial / Lot Date Bone Matriz Osteocel Pro Small - [id number] - [id number] Human N/ A: NUVASIVE 03/21/2021 [id number] / Implanted: Qty: 1 on 03/16/2017 by Sussy Yang MD at [facility] Tissue N/A [id number] / Implants [id number] Bone Matriz Osteocel Pro Small - [id number] - [id number] Human N/ A: NUVASIVE 03/21/2021 [id number] / Implanted: Qty: 1 on 03/16/2017 by Sussy Yang MD at [facility] Tissue N/A [id number] / Implants [id number] Bone Matriz Osteocel Pro Small - [id number] - [id number] Human N/ A: NUVASIVE 03/21/2021 [id number] / Implanted: Qty: 1 on 03/16/2017 by Sussy Yang MD at [facility] Tissue N/A [id number] / Implants [id number] Distraction Pin- 12mm - [id number] IMPLANT N/A: NUVASIVE SPINE [id number] / Implanted: 03/16/2017 at [facility] (Quantity not on file) DEVICES N/A / Contour Spacer Small 5mm - [id number] [id number] IMPLANT N/A: NUVASIVE SP INE [id number] / Implanted: 03/16/2017 at [facility] (Quantity not on file) DEVICES N/A / Anterior Cervical Plating Nuvasive 3-Lev el Sterling Revolution Plate,50mm - [id number] IPM IMPLANT N/A: NUVASIVE SPINE [id number] / Implanted: 03/16/2017 at [facility] (Quantity not on file) DEVICES N/A / Contour Spacer Small 5mm - [id number] [id number] IMPLANT N/A: NUVASIVE SP INE [id number] / Implanted: 03/16/2017 at [facility] (Quantity not on file) DEVICES N/A / Spacer Spinal Cntord Med 5mm - [id number] Spinal N/A: NUVASIVE [id number] / Implanted: 03/16/2017 at [facility] (Quantity not on file) Implants N/A / Screw Spinal Sohail Slf-Tap 4x15mm Sterling Revolution Acp - [id number] Spinal N/A: NUVASIVE [id number] / Implanted: 03/16/2017 at [facility] (Quantity not on file) Implants N/A / Screw Spinal Fxd Slf-Tap 4x15mm Sterling Revolution Acp - [id number] Spinal N/A: NUVASIVE [id number] / Implanted: 03/16/2017 at [facility] (Quantity not on file) Implants N/A / Matrix Hmstc Floseal 10ml W/ Humn F2 - [id number] Surgical N/A: PARRY 07/23/2018 [id number] / Implanted: 03/16/2017 at [facility] (Quantity not on file) Imp lants; N/A HEALTHCARE JILL / Expanders; [id number] Extenders; Surgical Wires Matrix Hmstc Floseal 10ml W/ Humn F2 - [id number] Surgical N/A: PARRY 07/23/2018 [id number] / Implanted: 03/16/2017 at [facility] (Quantity not on file) Imp lants; N/A HEALTHCARE JILL / Expanders; [id number] Extenders; Surgical Wires Procedures Procedure Name Priority Date/Time Associated Diagnosis Comme nts MRI LUMBAR SPINE WO Routine 02/28/2019 1:46 PM Chronic midlin e low Results for this CONTRAST HOSPITAL ADMITTING CLERK back pain with procedure are in sciatica, sciatica the resul ts laterality section. unspecified XR LUMBAR SPINE Routine 02/18/2019 1:33 PM Low back pain, Res ults for this COMPLETE 4+ VW HOSPITAL ADMITTING CLERK unspecified back procedure are in pain laterality, the results unspecified section. chronicity, unspecified whether sciatica present XR PELVIS 1 OR 2 VW Routine 01/21/2019 2:44 PM Left hip pain Results for this HOSPITAL ADMITTING CLERK procedure are i n the results section. after 11/12/2018 Results MRI Lumbar Spine Wo Contrast (02/28/2019 1:46 PM HOSPITAL ADMITTING CLERK) Specimen Narrative Performed At This result has an attachment that is no t available. EXAMINATION: MRI LUMBAR SPINE WO CONTRAST [facility] CLINICAL HISTORY: M54.40 Lumbago with sc [...] level. Degenerative changes of the sacroiliac joints. [facility]-[id number] Procedure Note Hm Interface, Radiology Results Incoming - 02/28/2019 4:15 PM HOSPITAL ADMITTING CLERK EXAMINATION: MRI LUMBAR SPINE WO CONTRAST CLINICAL [...] Degenerative changes of the sacroiliac j oints. [id number] Performing Organization Address [facility] Phon e Number RADI[facility] [address] [place] [address] XR Lumbar Spine Complete 4+ Vw (02/18/2019 1:33 PM HOSPITAL ADMITTING CLERK) Specimen Narrative Performed At This result has an attachment that is no t available. X-ray lumbar spine multiple views shows advanced spondylosis at the lower HM [facility] lumbar segments of the L4-5 from 5 1 with disc space collapse and endplate changes. L2 superior endplate fracture unknown chronicity. Bu t when compared to MRI from October 2018 appears to be chronic. Performing Organization Address [facility] Phon e Number [facility] [address] [place] [address] XR Pelvis 1 Or 2 Vw (01/21/2019 2:44 PM HOSPITAL ADMITTING CLERK) Specimen Narrative Performed At This result has an attachment that is no t available. AP pelvis and lateral x-ray of the left hip shows prior percutaneous HM [facility] pinning of a femoral neck fracture. The alignment of the fracture appears to be satisfactory and healed. There is no significa nt AVN. There does appear to be moderate to severe medial arthritic ovalle es. 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
--- OUTSIDE RECORDS SUMMARY | 2019-11-13 23:20 | XMS REPORT | Continuity of Care Document ---
:1945 Author Organization [facility] Care Team Providers Name Role Phone [facility] Unavailable Un available Problems Problem Status Onset Classification Date Comments Sourc e Date Reported STATUS POST Active Condition 07/02/2014 [facility] HYSTERECTOMY 4 Neuro LUMBAR Active Condition 07/02/2014 [facility] RADICULOPATHY 4 Neuro LOW BACK PAIN Active Condition 07/02/2014 [facility] 4 Neuro LUMBAR SPINAL Active Condition 07/02/2014 [facility] STENOSIS 4 Neuro DEGENERATIVE DISC Active Condition 07/02/2014 [facility] DISEASE, LUMBAR 4 Neur o SPINE Medications Medication Details Route Status Patient Ordering Order Source Instructions Provider Date MOBIC 15 MG TABS 1 tab po Active [facility] qd 015 Neuro CYCLOBENZAPRINE 1 tab po q Active [facility] HCL 5 MG TABS 8 hrs prn 015 Neuro muscle spasms MIRAPEX 1 MG TABS daily Active M[facility] r 014 Neuro EFFEXOR XR Active [facility] [id number] 014 Neuro CELEBREX 100 MG 1 cap po No Longer [facility] CAPS bid Active 014 Neuro Allergies, Adverse Reactions, Alerts Substance Category Reaction Severity Reaction Status Date Comments S ource type Reported TAPE Drug allergy TAPE [facility] 4 Neuro LATEX Environmental LATEX [facility] allergy 4 Neuro Immunizations No Data Provided for This Section Results No Data Provided for This Section Pathology Reports No Data Provided for This Section Diagnostic Reports No Data Provided for This Section Consultation Notes No Data Provided for This Section Discharge Summaries No Data Provided for This Section History and Physicals No Data Provided for This Section Vital Signs Vital Sign Value Date Comments Source Weight 170.0 07/02/2014 [facility] Height 69 07/02/2014 [facility] Temperature Oral (F) 98.4 F 07/02/2014 [facility] Heart Rate 69 07/02/2014 [facility] Systolic (mm Hg) 110 07/02/2014 [facility] Naomi ro Diastolic (mm Hg) 64 07/02/2014 [facility] Ne uro Respitory Rate 17 07/02/2014 [facility] Neuro Weight 173.0 01/10/2014 [facility] Neuro Height 69 01/10/2014 [facility] Neuro Temperature Oral (F) 98.1 F 01/10/2014 [facility] Neuro Heart Rate 70 01/10/2014 [facility] Neuro Systolic (mm Hg) 113 01/10/2014 [facility] Naomi ro Diastolic (mm Hg) 68 01/10/2014 [facility] Ne uro Respitory Rate 18 01/10/2014 [facility] Neuro Encounters Location Location Encounter Encounter Reason Attending ADM [place] Stat us Source Details Type Number For Provider Date Date Visit [facility] [id number] Sandip 01/10 01/10 [facility] [address] /2013 [facility] [id number] Sandip 07/02 07/02 [facility] Visit [address] /2014 [facility] Procedures No Data Provided for This Section Assessment and Plan No Data Provided for This Section Plan of Care No Data Provided for This Section Social History No Data Provided for This Section Family History No Data Provided for This Section Advance Directives No Data Provided for This Section Functional Status No Data Provided for This Section
--- OUTSIDE RECORDS SUMMARY | 2019-11-13 23:20 | XMS REPORT | Continuity of Care Document ---
:1945 Author Organization [facility] t Address [address] [place] [address] Care Team Providers Name Role Phone Paulo WRIGHT C Primary Care Physician Doctor Unassigned, Name Attending Clinician Unavailable Davy WRIGHT, L Attending Clinician Denilson Vanegas MD, Jordon Attending Clinician Branden WRIGHT, A. Attending Clinician HADNOTT Attending Clinician Unavailable Payers Payer Name Policy Type Policy Effective Date Expiration Date Sour ce Number AETNA MEDICAREAETNA [id number] 2013 [place] MEDICARE HMO/PPO 00:00:00 Methodis t [id number] Problems Condition Condition Condition Status Onset Resolution Last Treating Co mments Source Name Details Category Date Date Treatment Clinician Date Cervical Cervical Disease Active [place] stenosis stenosis 03-16 Method i of spinal of spinal 00:00: st canal canal 00 STATUS Condition Active 2013-022014-07-02 Mem oria POST 2 11:18:31 l HYSTERECTO STATUS 00:00: Herm levi MY POST 00 HYSTERECTO MY Active 4 Condition 07/02/2014 [facility] LUMBAR Condition Active 2013-022014-07-02 Mem oria RADICULOPA 2-05 11:18:31 l THY LUMBAR 00:00: [place] RADICULOPA 00 THY Active 01/10/2014 Condition 5 [facility] LOW BACK Condition Active 2013-022014-07-02 M emoria PAIN 2-05 11:18:31 l LOW BACK 00:00: Ivan n PAIN 00 Active 01/10/2014 Condition 5 [facility] LUMBAR Condition Active 2013-022014-07-02 Mem oria SPINAL 2-05 11:18:31 l STENOSIS LUMBAR 00:00: Ivan n SPINAL 00 STENOSIS Active 01/10/2014 Condition 5 [facility] DEGENERATI Condition Active 2013-022014-07-02 Memoria VE DISC 2-05 11:18:31 l DISEASE, 00:00: [place] 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, LUMBAR SPINE Active 01/10/2014 Condition 5 [facility] Cervical Cervical Problem Active Unive rs spine pain spine pain [facility] [place] [facility] Lumbar Lumbar Problem Active [facility] spine pain spine pain [facility] [place] [facility] Allergies, Adverse Reactions, Alerts Allergy Allergy Status Severity Reaction(s) Onset Inactive Treating Comm ents Source Name Type Date Date Clinician Morphine Propensi Active Rash 0 [place] ty to 1-29 Methodi adverse 00:00: st reaction 00 s to drug TAPE TAPE Active 2013-02 Memoria 2-05 l 00:00: [place] 00 LATEX LATEX Active 2013-02 Memoria 2-05 l 00:00: [place] 00 Hydrocod Propensi Active Hives itchy [place] one ty to 5-15 Methodi adverse 00:00: st reaction 00 s to drug Family History Family Member Diagnosis Comments Start Date Stop Date Source Natural father Heart disease [place] [facility] Natural mother Cancer [facility] thodist Social History Social Habit Start Date Stop Date Quantity Comments Source History of tobacco Current smoker Sergei hobbs Buddhist use Sex Assigned At [facility] ethodist Cigarettes smoked 2019-02-18 2019-02-18 [place] [facility] current (pack per 00:00:00 00:00:00 day) - Reported Cigarette 2019-02-18 2019-02-18 [place] Method ist pack-years 00:00:00 00:00:00 Tobacco use and 2019-02-18 2019-02-18 Never used Delroy Lobo ethodist exposure 00:00:00 00:00:00 Alcohol intake 2019-02-18 2019-02-18 Current drinker [place] on Buddhist 00:00:00 00:00:00 of alcohol (finding) Tobacco Comment 2019-02-18 2019-02-18 Quit 40 yrs [place] [facility] 00:00:00 00:00:00 Smoking Status Start Date Stop Date Source Former smoker 2019-02-18 00:00:00 2019-02-18 00:00:00 [place] [facility] Medications Ordered Filled Start Stop Current Ordering Indication Dosage Frequency Signature Comments Components Source Medication Medication Date Date Medication? Clinician (SIG) Name Name pramipexole 2017-02 Yes 1mg QD Take 1 mg [place] (MIRAPEX) 1 0-24 by mouth Meth floyd MG tablet 15:11: nightly. st 23 multivitami 2017-02 Yes 1{tbl} QD Take 1 [place] n 0-24 tablet by Methodi (THERAGRAN) 15:11: mouth st tablet 23 daily. diazePAM 2017-02 Yes [place] (VALIUM) 5 0-20 Methodi MG tablet 00:00: st 00 oxyCODone 2017-02 Yes [place] (ROXICODONE 0-20 Methodi ) 10 MG 00:00: st tablet 00 [facility] (EFFEXOR-XR 00:00: st ) 150 MG 24 00 hr capsule rOPINIRole 2016-02 Yes TK 1 T PO [place] (REQUIP) 1-21 QHS Methodi 0.5 MG 00:00: st tablet 00 MOBIC 15 MG Yes 1 tab po Me moria TABS 5-27 qd l 00:00: CYCLOBENZAP Yes 1 tab po q Memoria RINE HCL 5 5-27 8 hrs prn l MG TABS 00:00: muscle spasms MIRAPEX 1 2013-02 Yes daily Memoria MG TABS 2-05 l 00:00: 00 EFFEXOR XR 2013-02 Yes Memoria [id number] 2-05 l 00:00: CELEBREX 2013-02 No 1 cap po Memor ia 100 MG CAPS 2-05 bid l 00:00: [place] 00 Vital Signs Vital Name Observation Time Observation Value Comments Source Weight 2014-07-02 16:18:31 [facility] [place] Height 2014-07-02 16:18:31 [facility] [place] Temperature Oral (F) 2014-07-02 16:18:31 98.4 F [facility] [place] Heart Rate 2014-07-02 16:18:31 [facility] [place] Systolic (mm Hg) 2014-07-02 16:18:31 Shahram rial [place] Diastolic (mm Hg) 2014-07-02 16:18:31 Mem orial [place] Respitory Rate 2014-07-02 16:18:31 Memori al [place] Weight 2014-01-10 16:45:51 [facility] [place] Height 2014-01-10 16:45:51 [facility] [place] Temperature Oral (F) 2014-01-10 16:45:51 98.1 F [facility] [place] Heart Rate 2014-01-10 16:45:51 [facility] [place] Systolic (mm Hg) 2014-01-10 16:45:51 Shahram rial [place] Diastolic (mm Hg) 2014-01-10 16:45:51 Mem orial [place] Respitory Rate 2014-01-10 16:45:51 Memori al [place] Procedures Procedure Date / Time Performed Performing Clinician [facility] e MRI LUMBAR SPINE WO 2019-02-28 13:46:35 Cecil Arroyo CONTRAST Jordon XR LUMBAR SPINE 2019-02-18 13:33:32 Cecil Arryoo Sc thodist COMPLETE 4+ VW Jordon XR PELVIS 1 OR 2 VW 2019-01-21 14:44:20 Hasmukh Otero Plan of Care Planned Activity Planned Date Details Comments Source Future Scheduled 2019-09-07 INFLUENZA VACCINE Elaine moise Buddhist Test 00:00:00 [code = INFLUENZA VACCINE] Future Scheduled 2011 65+ PNEUMOCOCCAL Delroy Hardwickist Test 00:00:00 VACCINE (1 of 1 - PPSV23) [code = 65+ PNEUMOCOCCAL VACCINE (1 of 1 - PPSV23)] Future Scheduled 1996-02-16 BREAST CANCER [place] [facility] thodist Test 00:00:00 SCREENING [code = BREAST CANCER SCREENING] Future Scheduled 1996-02-16 COLONOSCOPY SCREENING [facility] Buddhist Test 00:00:00 [code = COLONOSCOPY SCREENING] Future Scheduled 1996-02-16 SHINGLES VACCINES (#1) H kaylee Buddhist Test 00:00:00 [code = SHINGLES VACCINES (#1)] Encounters Start End Encounter Admission Attending Care Care Encounter Source Date/Time Date/Time Type Type Clinicians Facility Department ID 2019-11-13 2019-11-13 Orders Doctor GIOVANNI [id number] 00:00:00 00:00:00 Only Unassigned, MELISSA [id number] [facility] [id number] 2019-07-18 2019-07-18 Office Davy [facility] [id number] 08:04:03 08:18:07 Visit [facility] [id number] Surgical [id number] Specialti [id number] 2016-07-21 2016-07-21 Appointmen [facility] 32 [id number] Univers 14:00:00 14:00:00 t; Jh NAVARRETE M.D. [place] WILLIAM, Physici M.D. ans Results Test Description Test Time Test Comments Results Result Sour e Comments MRI Lumbar Spine 2019-02-07 [place] Padilla on Wo Contrast 3 Radiology Results Method ist 16:12:10 - 02/28/2019 4:15 PM CSTEXAMINATION: MRI LUMBAR SPINE [...] the L5-S1 level.Degenerative changes of the sacroiliac joints.[id number] W
== END 2019-11-09 16:47 | disposition left against medical advice (07) ==
LOC: ER 14:16
DX: Z53.21 Procedure and treatment not carried out due to patient leaving prior to being seen by health care provider (principal)
CPT/HCPCS: 81003; 81015; 87086; 87088; 99281

== ENCOUNTER 2020-02-05 10:33 | Emergency (ER) | payer OTHER ==
--- OUTSIDE RECORDS SUMMARY | 2020-02-05 10:36 | XMS REPORT | Continuity of Care Document ---
:1945 Author Organization [facility] t Address [address] [place] [address] Care Team Providers Name Role Phone Simona Bates MD Primary Care Physician Chi Yang MD Attending Clinician Randal LUCERO Attending Clinician Unavailable Yudi Bhatti MD Attending Clinician Jordon Arroyo MD Attending Clinician HADNOTT Attending Clinician Unavailable Payers Payer Name Policy Type Policy Effective Date Expiration Date Sour ce Number MEDICAREMEDICARE PART [id number] 2008 Sergei Oakley AND 00:00:00 Baptism [id number] 2008- [place] [id number] 2019 [place] [id number] 00:00:00 Met johnson /02/2019-Gene olson Problems Condition Condition Condition Status Onset Resolution Last Treating Co mments Source Name Details Category Date Date Treatment Clinician Date Cervical Cervical Disease Active [place] stenosis stenosis 08 Method i of spinal of spinal 00:00: st canal canal 00 STATUS Condition Active 2013-022014-07-02 Mem oria POST 2-05 11:18:31 l HYSTERECTO STATUS 00:00: Herm levi MY POST 00 HYSTERECTO MY Active 4 Condition 07/02/2014 [facility] LUMBAR Condition Active 2013-022014-07-02 Mem oria RADICULOPA 2-05 11:18:31 l THY LUMBAR 00:00: [place] RADICULOPA 00 THY Active 01/10/2014 Condition 5 [...] VE DISC 2-05 11:18:31 l DISEASE, 00:00: [place] 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, LUMBAR SPINE Active 01/10/2014 Condition 5 [facility] Cervical Cervical Problem Active Unive rs spine pain spine pain [facility] [place] [facility] Lumbar Lumbar Problem Active [facility] spine pain spine pain [facility] [place] [facility] Allergies, Adverse Reactions, Alerts Allergy Allergy Status Severity Reaction(s) Onset Inactive Treating Comm ents Source Name Type Date Date Clinician Morphine Propensi Active Rash [place] ty to 03-06 Methodi adverse 00:00: st reaction 00 s to drug TAPE TAPE Active 2013-02 Memoria 2-05 l 00:00: [place] 00 LATEX LATEX Active 2013-02 Memoria 2-05 l 00:00: [place] 00 Hydrocod Propensi Active Hives itchy [place] one ty to -15 Methodi adverse 00:00: st reaction 00 s to drug Family History Family Member Diagnosis Comments Start Date Stop Date Source Natural father Heart disease [place] [facility] Natural mother Cancer [facility] thodist Social History Social Habit Start Date Stop Date Quantity Comments Source History of tobacco Current smoker [facility] use Sex Assigned At [facility] ethodist Exposure to Not sure [place] Metho dist SARS-CoV-2 (event) Cigarettes smoked 2020-01-28 2020-01-28 [place] Baptism current (pack per 00:00:00 00:00:00 day) - Reported Cigarette 2020-01-28 2020-01-28 [place] [facility] ist pack-years 00:00:00 00:00:00 Tobacco use and 2020-01-28 2020-01-28 Never used Delroy Lobo ethodist exposure 00:00:00 00:00:00 Alcohol intake 2020-01-28 2020-01-28 Current drinker [place] [facility]ism 00:00:00 00:00:00 of alcohol (finding) Tobacco Comment 2019-02-18 2019-02-18 Quit 40 yrs [place] [facility] 00:00:00 00:00:00 Smoking Status Start Date Stop Date Source Former smoker 2020-01-28 00:00:00 2020-01-28 00:00:00 Delroy Suarez Medications Ordered Filled Start Stop Current Ordering Indication Dosage Frequency Signature Comments Components Source Medication Medication Date Date Medication? Clinician (SIG) Name Name pramipexole 2019-02 Yes 1mg QD Take 1 mg [place] (MIRAPEX) 1 2-22 by mouth Meth floyd MG tablet 08:01: nightly. st 56 multivitami 2017-02 Yes 1{tbl} QD Take 1 [place] n 0-24 tablet by Methodi (THERAGRAN) 15:11: mouth st tablet 23 daily. diazePAM 2017-02 Yes [place] (VALIUM) 5 0-20 Methodi MG tablet 00:00: st 00 oxyCODone 2017-02 Yes [place] (ROXICODONE 0-20 Methodi ) 10 MG 00:00: st tablet 00 [facility] (EFFEXOR-XR 00:00: st ) 150 MG 24 00 hr capsule rOPINIRole 2016-02 Yes TK 1 T PO [place] (REQUIP) 1-21 QHS Methodi 0.5 MG 00:00: st tablet 00 MOBIC 15 MG Yes 1 tab po Me moria TABS 5-27 qd l 00:00: [place] 00 CYCLOBENZAP Yes 1 tab po q Memoria RINE HCL 5 5-27 8 hrs prn l MG TABS 00:00: muscle [place] 00 spasms MIRAPEX 1 2013-02 Yes daily Memoria MG TABS 2-05 l 00:00: [place] 00 EFFEXOR XR 2013-02 Yes Memoria [id number] 2-05 l 00:00: [place] 00 CELEBREX 2013-02 No 1 cap po Memor ia 100 MG CAPS 2-05 bid l 00:00: 00 Vital Signs Vital Name Observation Time Observation Value Comments Source Systolic blood 2020-01-28 10:30:00 134 mm[Hg] [place] n Baptism pressure Diastolic blood 2020-01-28 10:30:00 63 mm[Hg] [place] Baptism pressure Heart rate 2020-01-28 10:30:00 71 /min [place] [facility] Respiratory rate 2020-01-28 10:30:00 18 /min C[place] helm Baptism Oxygen saturation in 2020-01-28 10:30:00 98 /min [place] [facility] Arterial blood by Pulse oximetry Body temperature 2020-01-28 09:45:00 36.5 Adela [place] Bapt[facility] Body height 2020-01-28 08:00:00 175.3 cm [place] [facility] Body weight 2020-01-28 08:00:00 79.379 kg [place] [facility] BMI 2020-01-28 08:00:00 25.84 kg/m2 [place] [facility] Weight 2014-07-02 16:18:31 [facility] [place] Height 2014-07-02 16:18:31 [facility] [place] Temperature Oral (F) 2014-07-02 16:18:31 98.4 F [facility] [place] Heart Rate 2014-07-02 16:18:31 [facility] [place] Systolic (mm Hg) 2014-07-02 16:18:31 Shahram rial [place] Diastolic (mm Hg) 2014-07-02 16:18:31 Mem orial [place] Respitory Rate 2014-07-02 16:18:31 Memori al [place] Weight 2014-01-10 16:45:51 [facility] [place] Height 2014-01-10 16:45:51 [facility] [place] Temperature Oral (F) 2014-01-10 16:45:51 98.1 F [facility] [place] Heart Rate 2014-01-10 16:45:51 [facility] [place] Systolic (mm Hg) 2014-01-10 16:45:51 Shahram rial [place] Diastolic (mm Hg) 2014-01-10 16:45:51 Mem orial [place] Respitory Rate 2014-01-10 16:45:51 Jeb Oscar Procedures Procedure Date / Time Performed Performing Clinician [facility] e CT POST MYELOGRAM 2020-01-28 09:37:41 Darrin Yang ethodist CERVICAL IR MYELOGRAM CERV INCL 2020-01-28 08:56:00 Darrin Yang C[place] Baptism INJ W S&I XR CERVICAL SPINE 2020-01-22 12:47:00 Darrin Yang ethodist COMPLETE W FLEX EXT MRI LUMBAR SPINE WO 2019-02-28 13:46:35 Cecil Arroyo Baptism CONTRAST Jordon XR LUMBAR SPINE 2019-02-18 13:33:32 Cecil Arroyo thodist COMPLETE 4+ VW Jordon Plan of Care Planned Activity Planned Date Details Comments Source Future Scheduled 2019-09-07 INFLUENZA VACCINE [place] [facility] Test 00:00:00 [code = INFLUENZA VACCINE] Future Scheduled 1996-02-16 BREAST CANCER [place] Me thodist Test 00:00:00 SCREENING [code = BREAST CANCER SCREENING] Future Scheduled 1996-02-16 COLONOSCOPY SCREENING [place] [facility] Test 00:00:00 [code = COLONOSCOPY SCREENING] Future Scheduled 1996-02-16 SHINGLES VACCINES [place] [facility] Test 00:00:00 (#1) [code = SHINGLES VACCINES (#1)] Future Scheduled 1962 COVID-19 VACCINE (#1) [place] [facility] Test 00:00:00 [code = COVID-19 VACCINE (#1)] Encounters Start End Encounter Admission Attending Care Care Encounter Source Date/Time Date/Time Type Type Clinicians Facility Department ID 2020-01-28 2020-01-28 Outpatient [facility] [id number] [place] 00:00:00 00:00:00 DARRIN [address] 2020-01-28 2020-01-28 Outpatient GIST, [facility] [id number] [place] 00:00:00 00:00:00 DARRIN [address] 2020-01-22 2020-01-22 [facility]patient [facility] [id number] [place] 00:00:00 00:00:[address] DARRIN [address] 2020-01-20 2020-01-20 Outpatient [facility] [id number] [facility] 2020-01-20 2020-01-20 Outpatient [facility] [id number] [facility] 2020-01-14 2020-01-14 [id number] 2019-11-27 2019-11-27 Outpatient [facility] [id number] [facility] 2019-11-26 2019-11-26 Outpatient [facility] [id number] [facility] 2019-11-13 2019-11-13 [facility] [id number] 15:27:01 16:02:54 Visit [facility] [id number] Surgical [id number] Specialti [id number] es [address] [place] 2016-07-21 2016-07-21 Appointmen [facility] 32 [id number] Univers 14:00:00 14:00:00 t; hJ NAVARRETE M.D. [place] WILLIAM, Physici M.D. ans Results Test Description Test Time Test Comments Results Result [facility] e Comments CT Post 2020-01-08 [facility] Myelogram [address] Cervical 13:28:19 Incoming - 01/28/2020 1:31 PM CSTEXAMINATION: CT POST MYELOGRAM CERVICALCLINICAL HISTORY: M54.12 Radiculopathy cervical region, M54.12COMPARISON: C-spine radiograph 01/22/2020.TECHNIQUE: Axial postintrathecal contrast enhanced images of the spine were obtained with coronal and sagittal MIP reconstructed imaging. CT imaging was performed with iterative reconstruction technique and/or automated exposure control to reduce radiation dose.FINDINGS:There are healed postoperative changes compatible with intervertebral discectomies and anterior spinal instrumentation C4-C7. Surgical hardware appears intact, with solid osseous integration. There is osseous fusion of the C5-C7 vertebral bodies, however there is persistent nonunion of C4 and C5, for example image 16 of series 306. There is 2 mm anterolisthesis C3 on C4 secondary to mild to moderate facet arthrosis. Vertebral body heights are preserved. No suspicious osseous lesion. No prevertebral edema or neck mass identified. No cervical lymphadenopathy identified. Thyroid gland is normal in appearance. Lung apices are clear.Axial images through the disc spaces demonstrate the following:C1-C2: Mild arthrosis of the atlantoaxial articulation. No significant spinal canal stenosis.C2-C3: No significant posterior disc disease, spinal canal, subarticular zone, or neural foraminal stenosis. Moderate right-sided facet arthrosis is noted.C3-C4: Grade 1 anterolisthesis uncovering the disc and mild posterior disc bulge which indents the ventral thecal sac and results in mild spinal canal narrowing, with maximum AP diameter measuring 9 mm. There is marked left and moderate right neural foraminal stenosis secondary to endplate and facet osteophytes, image 79 series 301.C4-C5: Disc is surgically absent. Spinal canal is patent, however there is marked bilateral neural foraminal stenosis secondary to large endplate osteophytes, image 90 of series 304.C5-C6: Disc is surgically absent. Spinal canal is patent, however there is persistent marked bilateral neural foraminal stenosis secondary to endplate osteophytes, image 103 of series 304.C6-C7: Disc is surgically absent, however there is mild residual spinal canal stenosis related to endplate osteophytes, with maximum AP diameter measuring 8 mm, image 113 of series 304. There is also moderate bilateral neural foraminal stenosis secondary to degenerative uncovertebral hypertrophy.C7-T1: No significant posterior disc disease, spinal canal, subarticular zone, or neural foraminal stenosis.IMPRESSION: 1.Status post ACDF C4-C7, with persistent marked bilateral neural foraminal stenosis at C4-C5 and C5-C6 secondary to large endplate osteophytes and mild spinal canal stenosis at C6-C7.2.Adjacent level degeneration C3-C4 as detailed above, including mild spinal canal and marked left neural foraminal stenosis secondary to grade 1 anterolisthesis and endplate osteophytes.[id number] IR Myelogram 2020-01-08 [facility] Incl Inj W 2 Radiology Results Id sebastián S&I 13:27:56 - 01/28/2020 1:31 PM CSTEXAMINATION: IR MYELOGRAM CERV INCL INJ W S&ICLINICAL HISTORY: M54.12 Radiculopathy cervical region, M54.12COMPARISON: C-spine radiograph 01/22/2020.TECHNIQUE: After informed consent was obtained, a safety timeout was performed. The patient was placed prone on the fluoroscopy table. The back was prepped and draped in sterile manner. 1% buffered lidocaine was used for local anesthesia.Under fluoroscopic guidance, a 27 -gauge needle was advanced percutaneously into the spinal subarachnoid space via interlaminar approach at L2-L3 until free-flowing CSF returned from the hub. Subsequently, 10 mL of iohexol 300 was instilled into the thecal sac. The needle was removed. Multiple myelographic projections of the cervical spine were obtained. The patient tolerated procedure well with no immediate complication.Total fluoroscopy time was 0.2 minutes. 11 exposure images were taken.FINDINGS:There are healed postsurgical changes compatible prior ACDF C4-C7. Surgical hardware appears intact, with solid osseous integration. There is grade 1 anterolisthesis C3 on C4 secondary to facet arthrosis. The vertebral body heights are preserved.There is suboptimal opacification of the cervical subarachnoid space secondary to overlying surgical hardware and inability for patient to extend the neck. No myelographic block identified.IMPRESSION :Successful lumbar puncture for intrathecal administration of iodinated contrast material. Please see separate CT myelogram report for further details.[id number] XR Cervical 2020-01-07 [facility] Spine Complete w 6 Radiology Results M ethodist flex/ext 12:59:25 Incoming - 01/22/2020 1:02 PM CSTEXAMINATION: XR CERVICAL SPINE COMPLETE W FLEX EXTCLINICAL HISTORY: M54.12 Radiculopathy cervical region, Neck pain chronic no prior imagingCOMPARISON: 10/11/2017IMPRESSION:7 views of the cervical spine are interpreted.Vertebral heights are preserved. No fracture is seen.ACDF of C4-C7 with anterior plate screws is again seen. No hardware failure or loosening is identified. There is an interval small metallic density overlying the anterior surface of the plate at the level of the C4 screws on the lateral images. This is of uncertain clinical significance.Mild disc degenerative changes are again noted at C3-4 with mild grade 1 anterolisthesis. There is a difference of 1 mm between flexion and extension.The prevertebral soft tissues are unremarkable.[id number] MRI Lumbar Spine 2019-02-07 Hm Interface, [place] Contrast 3 Radiology Results Method ist 16:12:10 Incoming - 02/28/2019 4:15 PM CSTEXAMINATION: MRI LUMBAR [...] the L5-S1 level.Degenerative changes of the sacroiliac joints.[facility]-[id number] W
--- OUTSIDE RECORDS SUMMARY | 2020-02-05 10:36 | XMS REPORT | Clinical Summary ---
:1945 Author Organization [facility] Address [address] [place] [address] Care Team Providers Name Role Phone Simona [...] Encounters Date Type Specialty Care Team Description 01/28/2020 Hospital Encounter Radiology Sussy Yang Radiculop Chi mar MD cervical region 01/28/2020 Hospital Encounter Radiology Sussy Yang RadicuChi reyna MD cervical region 01/27/2020 Travel 01/27/2020 Telephone Radiology Opustroy-Mat Last RN 01/24/2020 Transcribe Orders Radiology Sussy Yang Radiculopa Chi richey MD cervical region (Primary Dx) 01/22/2020 Hospital Encounter Radiology Sussy Yang Cervical radiculopathy MD Chi 01/22/2020 Travel 01/22/2020 Community Orders ADMIN Sussy Yang Cervical ra diculopathy MD Chi (Primary Dx) 03/05/2019 Office Visit Orthopedic Surgery Denilson Vanegas, Lumbar ra diculopathy (Primary Dx); Cecil Ruvalcaba Degeneration of lumbar intervertebral disc 02/28/2019 Hospital Encounter Radiology Oreilly Rolajoseph, Chronic m idline low Cecilmau Ruvalcaba, back pain with MD sciatica, sciat ica laterality unsp ecified 02/18/2019 Office Visit Orthopedic Surgery Denilson Vanegas, 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, sciatica laterality unspecified (Primary Dx); Cecil Ruvalcaba, Low back pain, unspecified back pain laterality, unspecified chronicity, unspecified whether sciatica present; Lumbar radiculo sarbjit, acute after 02/04/2019 Surgical History Surgery Date Site/Laterality Comments INGUINAL HERNIA REPAIR 02/06/2015 - Right 02/06/2016 LAMINECTOMY 02/06/1995 - 02/06/1996 BACK SURGERY x 2 HIP SURGERY Left pins AUGMENTATION, BREAST, WITH Bilateral PROSTHETIC IMPLANT DISCECTOMY, CERVICAL, WITH 03/16/2017 Back/Right Proce dure: C4-C7 ANTERIOR FUSION, ANTERIOR APPROACH CERVIC AL DISCECTOMY AND FUSION AND POSSI BLE C3-C7 W/ ALLOGRAFT, AU TOGRAFT; Surgeon: Sussy Yang MD; Location: [facility]; Service: Neurosurgery; Laterality: Righ t; Medical devices [...] file Not on file Not on file COVID-19 Exposure Response Date Recorded In the last month, have you been in contact with No / Unsure 01/27/2020 12:40 PM FARM OWNER OPERATOR someone who was confirmed or suspected to have Coronavirus / COVID-19? Last Filed Vital Signs Vital Sign Reading Time Taken Comments Blood Pressure 134/63 01/28/2020 10:30 AM FARM OWNER OPERATOR Pulse 71 01/28/2020 10:30 AM FARM OWNER OPERATOR Temperature 36.5 C (97.7 F) 01/28/2020 9:45 AM FARM OWNER OPERATOR Respiratory Rate 18 01/28/2020 10:30 AM FARM OWNER OPERATOR Oxygen Saturation 98% 01/28/2020 10:30 AM FARM OWNER OPERATOR Inhaled Oxygen Concentration - - Weight 79.4 kg (175 lb) 01/28/2020 8:00 AM FARM OWNER OPERATOR Height 175.3 cm (5' 9") 01/28/2020 8:00 AM FARM OWNER OPERATOR Body Mass Index 25.84 01/28/2020 8:00 AM FARM OWNER OPERATOR Plan of Treatment Health Maintenance Due Date Last Done Comments COVID-19 VACCINE (#1) 1961 BREAST CANCER SCREENING 02/16/1996 COLONOSCOPY SCREENING 02/16/1996 SHINGLES VACCINES (#1) 02/16/1996 INFLUENZA VACCINE 09/07/2019 65+ PNEUMOCOCCAL VACCINE Completed 11/15/2017 Implants Implanted Type Area Director Of Income Tax Device Shelf Model / Identifier Expiration Serial / Lot Date Bone Matriz Osteocel Pro Small - [id number] - [id number] Human N/ A: NUVASIVE 03/21/2021 [id number] / Implanted: Qty: 1 on 03/16/2017 by Sussy Yang MD at [facility] Tissue N/A [id number] / Implants [id number] Bone Matriz Osteocel Pro Small - [id number] - [id number] Human N/ A: NUVASIVE 03/21/2021 [id number] / Implanted: Qty: 1 on 03/16/2017 by Sussy Yang MD at [facility] Tissue N/A [id number] / Implants [id number] Bone Matriz Osteocel Pro Small - [id number] - [id number] Human N/ A: NUVASIVE 03/21/2021 [id number] / Implanted: Qty: 1 on 03/16/2017 by Sussy Yang MD at [facility] Tissue N/A [id number] / Implants [id number] Distraction Pin- 12mm - [id number] IPM IMPLANT N/A: NUVASIVE SPINE [id number] / Implanted: 03/16/2017 at [facility] (Quantity not on file) DEVICES N/A / Contour Spacer Small 5mm - [id number] IPM IMPLANT N/A: NUVASIVE SP INE [id number] / Implanted: 03/16/2017 at [facility] (Quantity not on file) DEVICES N/A / Anterior Cervical Plating Nuvasive 3-Lev el Hopkins Revolution Plate,50mm - [id number] IPM IMPLANT N/A: NUVASIVE SPINE [id number] / Implanted: 03/16/2017 at [facility] (Quantity not on file) DEVICES N/A / Contour Spacer Small 5mm - [id number] IPM IMPLANT N/A: NUVASIVE SP INE [id number] / Implanted: 03/16/2017 at [facility] (Quantity not on file) DEVICES N/A / Spacer Spinal Cntord Med 5mm - [id number] Spinal N/A: NUVASIVE [id number] / Implanted: 03/16/2017 at [facility] (Quantity not on file) Implants N/A / Screw Spinal Sohail Slf-Tap 4x15mm Hopkins Revolution Acp - [id number] Spinal N/A: NUVASIVE [id number] / Implanted: 03/16/2017 at [facility] (Quantity not on file) Implants N/A / Screw Spinal Fxd Slf-Tap 4x15mm Hopkins Revolution Acp - [id number] Spinal N/A: NUVASIVE [id number] / Implanted: 03/16/2017 at [facility] (Quantity not on file) Implants N/A / Matrix Hmstc Floseal 10ml W/ Humn F2 - [id number] Surgical N/A: PARRY 07/23/2018 [id number] / Implanted: 03/16/2017 at [facility] (Quantity not on file) Imp lants; N/A HEALTHCARE JILL / Expanders; [id number] Extenders; Surgical Wires Matrix Hmstc Floseal 10ml W/ Humn F2 - [id number] Surgical N/A: PARRY 07/23/2018 [id number] / Implanted: 03/16/2017 at [facility] (Quantity not on file) Imp lants; N/A HEALTHCARE JILL / Expanders; [id number] Extenders; Surgical Wires Procedures Procedure Name Priority Date/Time Associated Diagnosis Comme nts CT POST MYELOGRAM Routine 01/28/2020 9:37 Radiculopathy, Resu lts for this CERVICAL AM FARM OWNER OPERATOR cervical region procedure ar e in the results section. IR MYELOGRAM CERV Routine 01/28/2020 8:56 Radiculopathy, Resu lts for this INCL INJ W S&I AM FARM OWNER OPERATOR cervical region procedure are in the results section. XR CERVICAL SPINE Routine 01/22/2020 12:47 Cervical radiculopa thy Results for this COMPLETE W FLEX PM FARM OWNER OPERATOR procedure ar e in EXT the results section. MRI LUMBAR SPINE Routine 02/28/2019 1:46 Chronic midline low Results for this WO CONTRAST PM FARM OWNER OPERATOR back pain with procedure are in sciatica, sciatica the resul ts laterality unspecified secti on. XR LUMBAR SPINE Routine 02/18/2019 1:33 Low back pain, Result s for this COMPLETE 4+ VW PM FARM OWNER OPERATOR unspecified back pain proc edure are in laterality, the results unspecified section. chronicity, unspecified whether sciatica present after 02/04/[address] Post Myelogram Cervical (01/28/2020 9:37 AM FARM OWNER OPERATOR) Specimen Narrative Performed At EXAMINATION: CT POST MYELOGRAM CERVICAL [facility] CLINICAL HISTORY: M54.12 Radiculopathy cervical region, M54.12 COMPARISON: C-spine radiograph 020. TECHNIQUE: Axial postintrathecal contrast enhanced miya ges of the spine were obtained with coronal and sagittal MIP reconstruc stevan imaging. CT imaging was performed with iterative reconstruction te chnique and/or automated exposure control to reduce radiation dose. FINDINGS: There are healed postoperative changes compatible with intervertebral discectomies and anterior spinal instrumentation C4-C7 . Surgical hardware appears intact, with solid osseous integratio n. There is osseous fusion of the C5-C7 vertebral juan francisco dies, however there is persistent nonunion of C4 and C5, for exampl e image 16 of series 306. There is 2 mm anterolisthesis C3 on C4 sec ondary to mild to moderate facet arthrosis. Vertebral body heights are p reserved. No suspicious osseous lesion. No prevertebral edema or neck mass identified. No cerv ical lymphadenopathy identified. Thyroid gland is normal in appearance. Lung apices are clear. Axial images through the disc spaces dem onstrate the following: C1-C2: Mild arthrosis of the atlantoaxial articulation . No significant spinal canal stenosis. C2-C3: No significant posterior disc disease, spinal c anal, subarticular zone, or neural foraminal stenosis. Moderate right-bev ed facet arthrosis is noted. C3-C4: Grade 1 anterolisthesis uncovering the disc and mild posterior disc bulge which indents the ventral thecal sac and re sults in mild spinal canal narrowing, with maximum AP diameter measu ring 9 mm. There is marked left and moderate right neural foraminal stenosis secondary to endplate and facet ost eophytes, image 79 series 301. C4-C5: Disc is surgically absent. Spinal canal is justice nt, however there is marked bilateral neural foraminal stenosis secondar y to large endplate osteophytes, image 90 of series 304. C5-C6: Disc is surgically absent. Spinal canal is justice nt, however there is persistent marked bilateral neural foraminal stenos is secondary to endplate osteophytes, image 103 of serie s 304. C6-C7: Disc is surgically absent, however there is mil d residual spinal canal stenosis related to endplate osteophytes, with m aximum AP diameter measuring 8 mm, image 113 of series 304. There is also moderate bilateral neural foraminal stenosis seco ndary to degenerative uncovertebral hypertrop hy. C7-T1: No significant posterior disc disease, spinal c anal, subarticular zone, or neural foraminal stenosis. IMPRESSION: 1.Status post ACDF C4-C7, with persistent marked bilat eral neural foraminal stenosis at C4-C5 and C5-C6 secondary to lar ge endplate osteophytes and mild spinal canal stenos is at C6-C7. 2.Adjacent level degeneration C3-C4 as detailed above, including mild spinal canal and marked left neural foraminal stenosis secondary to grade 1 anterolisthesis and endplate ost eophytes. [id number] Procedure Note Hm Interface, Radiology Results - 01/28/2020 1:31 PM FARM OWNER OPERATOR EXAMINATION: CT POST MYELOGRAM CERVICAL CLINICAL HISTORY: M54.12 Radiculopathy cervical region, M54.12 COMPARISON: C-spine radiograph 01/22/20 20. TECHNIQUE: Axial postintrathecal contras t enhanced images of the spine were obtained with coronal and sagittal MIP reconstructed imaging. CT imaging was performed with iterative reconstruction technique and/or automated exposure control to reduce radiation dose. FINDINGS: There are healed postoperative changes c ompatible with intervertebral discectomies and anterior spinal instrumentation [...] lesion. No prevertebral edema or neck mass ident ified. No cervical lymphadenopathy identified. Thyroid gland is normal in appearance. Lung apices are clear. Axial images through the disc spaces dem onstrate the following: C1-C2: Mild arthrosis of the atlantoaxia l articulation. No significant spinal canal stenosis. C2-C3: No significant posterior disc dis ease, spinal canal, subarticular zone, or neural foraminal stenosis. Moderate right-sided facet arthrosis is noted. C3-C4: Grade 1 anterolisthesis uncoverin g the disc and mild posterior disc bulge which indents the ventral thecal sac and results in mild spinal canal narrowing, with maximum AP diameter measuring 9 mm. There is marked left and moderate right neural foraminal stenosis secondary to endplate and facet osteophytes, image 79 series 301. C4-C5: Disc is surgically absent. Spinal canal is patent, however there is marked bilateral neural foraminal stenosis secondary to large endplate osteophytes, image 90 of series 304. C5-C6: Disc is surgically absent. Spinal canal is patent, however there is persistent marked bilateral neural foraminal stenosis secondary to endplate osteophytes, image 103 of series 304. C6-C7: Disc is surgically absent, howeve r there is mild residual spinal canal stenosis related to endplate osteophytes, with maximum AP diameter measuring 8 mm, image 113 of series 304. There is also moderate bilateral neural foraminal stenosis secondary to degenerative uncovertebral hypertrop hy. C7-T1: No significant posterior disc dis ease, spinal canal, subarticular zone, or neural foraminal stenosis. IMPRESSION: 1.Status post ACDF C4-C7, with persisten t marked bilateral neural foraminal stenosis at C4-C5 and C5-C6 secondary to large endplate osteophytes and mild spinal canal stenosis at C6-C7. 2.Adjacent level degeneration C3-C4 as d etailed above, including mild spinal canal and marked left neural foraminal stenosis secondary to grade 1 anterolisthesis and endplate osteophytes. [id number] Performing Organization Address City/State/ZIP Code Phon e Number [facility] [address] [place] [address] IR Myelogram Cerv Incl Inj W S&I (01/28/2020 8:56 AM FARM OWNER OPERATOR) Specimen Narrative Performed At EXAMINATION: IR MYELOGRAM CERV INCL IN J W S&I [facility] CLINICAL HISTORY: M54.12 Radiculopathy cervical region, M54.12 COMPARISON: C-spine radiograph 020. TECHNIQUE: After informed consent was obtained, a safety timeout was performed. The patient was placed prone on the fluoroscopy table. The back was prepped and draped in sterile manner. 1% buffered lidocaine was used for local anesthesia. Under fluoroscopic guidance, a 27 -gauge needle was advanced percutaneously into the spinal subarachnoid space via interlaminar approach at L2-L3 until free-flowing CSF returned from the hub. Subsequently, 10 mL of iohexol 300 was instilled into the thecal sac. The needle was removed. Multiple myelograp hic projections of the cervical spine were obtained. The patient tolera stevan procedure well with no immediate complication. Total fluoroscopy time was 0.2 minutes. 11 exposure images were taken. FINDINGS: There are healed postsurgical changes compatible prior ACDF C4-C7. Surgical hardware appears intact, with solid osseous i ntegration. There is grade 1 anterolisthesis C3 on C4 secondary to facet arthrosis. The vertebral body heights are preserved. There is suboptimal opacification of the cervical suba rachnoid space secondary to overlying surgical hardware and inability for patient to extend the neck. No myelographic block i dentified. IMPRESSION: Successful lumbar puncture for intrathecal administrat ion of iodinated contrast material. Please see separate CT myelogram re port for further details. [id number] Procedure Note Interface, Radiology Results Incoming - 01/28/2020 1:31 PM FARM OWNER OPERATOR EXAMINATION: IR MYELOGRAM CERV INCL INJ W S&I CLINICAL HISTORY: M54.12 Radiculopathy cervical region, M54.12 COMPARISON: C-spine radiograph 01/22/20 20. TECHNIQUE: After informed consent was obtained, jose david fabian timeout was performed. The patient was placed prone on the fluoroscopy table. The back was prepped and draped in sterile manner. 1% buffered lidocaine was used for local anesthesia. Under fluoroscopic guidance, a 27 -gaug e needle was advanced percutaneously into the spinal subarachnoid space via interlaminar approach at L2-L3 until free-flowing CSF returned from the hub. Subsequently, 10 mL of iohexol 300 was instilled into the thecal sac. The needle was removed. Mult iple myelographic projections of the cervical spine were obtained. The patient tolerated procedure well with no immediate complication. Total fluoroscopy time was 0.2 minutes. 11 exposure images were taken. FINDINGS: There are healed postsurgical changes co mpatible prior ACDF C4-C7. Surgical hardware appears intact, with solid osseous integration. There is grade 1 anterolisthesis C3 on C4 secondary to facet arthrosis. The vertebral body heights are preserved. There is suboptimal opacification of the cervical subarachnoid space secondary to overlying surgical hardware and inability for patient to extend the neck. No myelographic block identified. IMPRESSION: Successful lumbar puncture for intrathec al administration of iodinated contrast material. Please see separate CT myelogram report for further details. [id number] Performing Organization Address City/State/ZIP Code Phon e Number [facility] [address] [place] [address] XR Cervical Spine Complete w flex/ext (01/22/2020 12:47 PM FARM OWNER OPERATOR) Specimen Narrative Performed At EXAMINATION: XR CERVICAL SPINE COMPLETE W FLEX EXT [facility] CLINICAL HISTORY: M54.12 Radiculopathy cervical jeanine on, Neck pain chronic no prior imaging COMPARISON: 10/11/2017 IMPRESSION: 7 views of the cervical spine are interp reted. Vertebral heights are preserved. No frac ture is seen. ACDF of C4-C7 with anterior plate screws is again seen . No hardware failure or loosening is identified. There is an interv al small metallic density overlying the anterior surface of the plate at the level of the C4 screws on the lateral images. This is of uncertain clinical significance. Mild disc degenerative changes are again noted at C3-4 with mild grade 1 anterolisthesis. There is a difference of 1 mm between flexion and extension. The prevertebral soft tissues are unrema rkable. [id number] Procedure Note Interface, Radiology Results Incoming - 01/22/2020 1:02 PM FARM OWNER OPERATOR EXAMINATION: XR CERVICAL SPINE COMPLETE W FLEX EXT CLINICAL HISTORY: M54.12 Radiculopathy cervical region, Neck pain chronic no prior imaging COMPARISON: 10/11/2017 IMPRESSION: 7 views of the cervical spine are interp reted. Vertebral heights are preserved. No frac ture is seen. ACDF of C4-C7 with anterior plate screws is again seen. No hardware failure or loosening is identified. There is an interval small metallic density overlying the anterior surface of the plate at the level of the C4 screws on the lateral images. This is of uncertain clinical significance. Mild disc degenerative changes are again noted at C3-4 with mild grade 1 anterolisthesis. There is a difference of 1 mm between flexion and extension. The prevertebral soft tissues are unrema rkable. [id number] Performing Organization Address City/State/ZIP Code Phon [facility] Number [facility] [address] [place] [address] MRI Lumbar Spine Wo Contrast (02/28/2019 1:46 PM FARM OWNER OPERATOR) Specimen Narrative Performed At This result has [...] level. Degenerative changes of the sacroiliac joints. [id number] Procedure Note Hm Interface, Radiology Results Incoming - 02/28/2019 4:15 PM FARM OWNER OPERATOR EXAMINATION: MRI LUMBAR SPINE WO CONTRAST CLINICAL [...] Degenerative changes of the sacroiliac j oints. [id number] Performing Organization Address City/State/ZIP Code Phon e Number [facility] [address] [place] [address] XR Lumbar Spine Complete 4+ Vw (02/18/2019 1:33 PM FARM OWNER OPERATOR) Specimen Narrative Performed At This result has [...] appears to be chronic. Performing Organization Address City/State/ZIP Code Phon e Number [facility] [address] [place] [address] after 02/04/2019 Insurance Payer Benefit Plan / Subscriber ID Effective Dates Phone Addre ss Type Group MEDICARE MEDICARE PART A [id number] 2008-Present [facility] [place] [place] [facility] AND B AETNA AETNA MEDICARE [id number] 2019-Present Commercial SUPPLEMENT Advance Directives For more information, please contact: [phone] Type Date Recorded Patient Life Sciences Director Explanati on Advance Directives, Living Will 06/14/2017 10:27 AM and Medical Power of Mold Burner
--- OUTSIDE RECORDS SUMMARY | 2020-02-05 10:36 | XMS REPORT | Continuity of Care Document ---
:1945 Author Organization [employer] Care Team Providers Name Role Phone [employer] Unavailable Un available Problems Problem Status Onset [...] r 014 Neuro EFFEXOR XR Active [facility] [id number] Neuro CELEBREX 100 MG 1 cap [...] [facility] Systolic (mm Hg) 110 07/02/2014 [facility] [place] Naomi ro Diastolic (mm Hg) 64 07/02/2014 [facility] [place] Ne uro Respitory Rate 17 07/02/2014 [facility] [place] Neuro Weight 173.0 01/10/2014 [facility] [place] Neuro Height 69 01/10/2014 [facility] [place] Neuro Temperature Oral (F) 98.1 F 01/10/2014 [facility] [place] Neuro Heart Rate 70 01/10/2014 [facility] [place] Neuro Systolic (mm Hg) 113 01/10/2014 [facility] [place] Naomi ro Diastolic (mm Hg) 68 01/10/2014 [facility] [place] Ne uro Respitory Rate 18 01/10/2014 [facility] [place] [facility] Neuro Encounters Location Location Encounter Encounter Reason Attending ADM [place] Stat us Source Details Type Number For Provider Date Date Visit [facility] [id number] Sandip 01/10 01/10 [facility] [address] /2013 Neuro [facility] [id number] Sandip 07/02 07/02 [facility] Visit [...]
[2020-02-05 11:08] LABS: Absolute Lymphocytes (CBC) 1.4 K/uL (0.7-4.9); Basophils % 0.6 % (0-1.3); Hematocrit 44.5 % (36.0-45.0); Lymphocytes % 26.8 % (15.3-44.8); MPV 8.7 fL (7.6-11.3); RBC Red Blood Cell Count 5.15 M/uL (3.86-4.86)
[2020-02-05 11:15] LABS: Protime INR 0.91
[2020-02-05] MEDS ORDERED: PROMETHAZINE INJ 25 MG/ML AMP ONE (11:16)
[2020-02-05] MEDS ORDERED: NA CHLORIDE 0.9% 1,000 ML ONE (11:16)
[2020-02-05] MEDS ORDERED: ASPIRIN 81 MG CHEWABLE TABLET ONE (11:16)
[2020-02-05] MEDS ORDERED: FAMOTIDINE 20 MG/2 ML VIAL IV ONE (11:18)
[2020-02-05 11:28] LABS: ALT/SGPT 22 U/L (12-78); AST/SGOT 22 U/L (15-37); Albumin 3.7 g/dL (3.4-5.0); Alkaline Phosphatase 90 U/L (45-117); BUN Blood Urea Nitrogen 20 mg/dL (7-18); Bicarbonate 27 mmol/L (21-32); Bilirubin Direct 0.1 mg/dL (0-0.2); Bilirubin Total 0.6 mg/dL (0.2-1.0); Glucose Level 113 mg/dL (74-106); Lipase 114 U/L (73-393); Magnesium 2.1 mg/dL (1.8-2.4); NT PRO-BNP 126 pg/mL (<125); Protein, Total 7.1 g/dL (6.4-8.2); Sodium Level 142 mmol/L (136-145); Troponin (Emerg Dept Use Only) < 0.02 ng/mL (0.0-0.045)
--- NOTE | 2020-02-05 11:30 | RAD REPORT ---
EXAM DESCRIPTION: Kiana Single View02/05/2020 11:17 am CLINICAL HISTORY: Chest pain COMPARISON: January 29, 2020 FINDINGS: The lungs appear clear of acute infiltrate. The heart is normal size IMPRESSION: No acute abnormalities displayed
[2020-02-05] MEDS ORDERED: LORazepam 2 MG/ML VIAL ONE (11:38)
--- NOTE | 2020-02-05 16:35 | ER ---
Nurse's Notes [facility] Name: Kim Mera Age: 74 yrs Sex: Female : 1945 Arrival Date: 02/05/2020 Time: 10:36 Bed 13 Private MD: Diagnosis: Chest pain, unspecified;Malaise and fatigue Presentation: 02/04 10:38 Chief complaint: Patient states: SOB and diaphoresis on exertion for a few days. Pt aa5 also reports cough. Reports chest pain radiating to back since this morning. 10:38 Onset of symptoms was February 05, 2020. aa5 10:38 Acuity: JUAN 2 aa5 10:38 Coronavirus screen: cough unrelated to allergies, shortness of breath, Client presents aa5 with at least one sign or symptom that may indicate coronavirus-19. Standard/surgical mask placed on the client. Provider contacted for isolation considerations. Ebola Screen: Patient negative for fever greater than or equal to 101.5 degrees Fahrenheit, and additional compatible Ebola Virus Disease symptoms. Initial Sepsis Screen: Does the patient meet any 2 criteria? No. Patient's initial sepsis screen is negative. Does the patient have a suspected source of infection? No. Patient's initial sepsis screen is negative. Risk Assessment: Do you want to hurt yourself or someone else? Patient reports no desire to harm self or others. 10:38 Method Of Arrival: Ambulatory aa5 Historical: - Allergies: 10:49 adhesive tape; aa5 10:49 HYDROCODONE; aa5 10:49 Hydromorphone; aa5 10:49 Morphine; aa5 - Home Meds: 10:49 Aspirin Oral [Active]; Unknown medication for cholesterol [Active]; aa5 - PMHx: 10:49 Arthritis; Firbomyalgia; High Cholesterol; restless leg syndrome; aa5 - PSHx: 10:49 back and neck surgery; Cholecystectomy; Hysterectomy; aa5 - Immunization history:: Flu vaccine is not up to date. - Social history:: Smoking status: Patient denies any tobacco usage or history of. Screenin:00 Abuse screen: Denies threats or abuse. Denies injuries from another. Nutritional ca1 screening: No deficits noted. Tuberculosis screening: No symptoms or risk factors identified. Fall Risk IV access (20 points). Assessment: 11:00 General: Appears in no apparent distress. comfortable, Behavior is cooperative, ca1 appropriate for age, anxious. Pain: Complains of pain in chest and epigastric area Pain radiates to right arm Pain currently is 6 out of 10 on a pain scale. Quality of pain is described as heavy, Pain began 3 hours ago. Is continuous. Neuro: Level of Consciousness is awake, alert, obeys commands, Oriented to person, place, time, situation. Cardiovascular: Heart tones S1 S2 present Capillary refill < 3 seconds Patient's skin is warm and dry. Rhythm is sinus rhythm. Respiratory: Reports shortness of breath cough that is Airway is patent Respiratory effort is even, unlabored, Respiratory pattern is regular, symmetrical, Breath sounds are clear bilaterally. GI: Abdomen is flat, non-distended, Bowel sounds present X 4 quads. Abd is soft and non tender X 4 quads. Reports nausea. : No signs and/or symptoms were reported regarding the genitourinary system. EENT: No signs and/or symptoms were reported regarding the EENT system. Derm: Skin is intact, is healthy with good turgor, Skin is pink, warm \T\ dry. Musculoskeletal: Circulation, motion, and sensation intact. Capillary refill < 3 seconds. 11:49 Reassessment: Patient appears in no apparent distress at this time. Patient and/or ca1 family updated on plan of care and expected duration. Pain level reassessed. Patient is alert, oriented x 3, equal unlabored respirations, skin warm/dry/pink. 13:01 Reassessment: Patient appears in no apparent distress at this time. Patient and/or ca1 family updated on plan of care and expected duration. Pain level reassessed. Patient is alert, oriented x 3, equal unlabored respirations, skin warm/dry/pink. 13:43 Reassessment: Patient appears in no apparent distress at this time. Patient and/or ca1 family updated on plan of care and expected duration. Pain level reassessed. Patient is alert, oriented x 3, equal unlabored respirations, skin warm/dry/pink. 14:40 Reassessment: Patient appears in no apparent distress at this time. Patient is alert, ca1 oriented x 3, equal unlabored respirations, skin warm/dry/pink. Patient is alert/active/playful, equal unlabored respirations, skin warm/dry/pink. 15:23 Reassessment: Patient appears in no apparent distress at this time. Patient and/or ca1 family updated on plan of care and expected duration. Pain level reassessed. Patient is alert, oriented x 3, equal unlabored respirations, skin warm/dry/pink. 16:13 Reassessment: Patient appears in no apparent distress at this time. Patient and/or ca1 family updated on plan of care and expected duration. Pain level reassessed. Patient is alert, oriented x 3, equal unlabored respirations, skin warm/dry/pink. 16:52 Reassessment: Patient appears in no apparent distress at this time. Patient and/or ca1 family updated on plan of care and expected duration. Pain level reassessed. Patient is alert, oriented x 3, equal unlabored respirations, skin warm/dry/pink. Vital Signs: 10:38 BP 161 / 73; Pulse 65; Resp 20 S; Temp 98.6(O); Pulse Ox 100% on R/A; Weight 78.47 kg aa5 (R); Height 5 ft. 9 in. (175.26 cm) (R); Pain 6/10; 11:49 BP 133 / 58; Pulse 58; Resp 18 S; Pulse Ox 95% on R/A; ca1 13:01 BP 136 / 60; Pulse 60; Resp 16 S; Pulse Ox 100% ; ca1 13:43 BP 132 / 66; Pulse 62; Resp 16 S; Pulse Ox 100% on R/A; ca1 14:45 BP 127 / 69; Pulse 56; Resp 16 S; Pulse Ox 99% on R/A; ca1 16:13 BP 127 / 51; Pulse 56; Resp 16 S; Pulse Ox 99% on R/A; ca1 16:52 BP 123 / 66; Pulse 61; Resp 17 S; Pulse Ox 100% on R/A; ca1 10:38 Body Mass Index 25.55 (78.47 kg, 175.26 cm) aa5 ED Course: 10:36 Patient arrived in ED. ag5 10:38 [facility] Arellano FNP-C [facility]. snw 10:38 Magdy Beasley MD is Attending Physician. snw 10:38 Arm band placed on Patient placed in an exam room, on a stretcher. aa5 10:41 Melissa Paez RN is Primary Nurse. ca1 10:47 Triage completed. aa5 10:58 No provider procedures requiring assistance completed. Inserted saline lock: 20 gauge ca1 in right forearm, using aseptic technique. Blood collected. Patient maintains SpO2 saturation greater than 95% on room air. 11:00 Patient has correct armband on for positive identification. Placed in gown. Bed in low ca1 position. Call light in reach. Side rails up X2. environmental monitoring specialist on. Pulse ox on. NIBP on. Warm blanket given. 11:17 XRAY Chest (1 view) In Process Unspecified. EDMS 16:58 IV discontinued, intact, bleeding controlled, No redness/swelling at site. Pressure ca1 dressing applied. Administered Medications: 11:00 Drug: Aspirin Chewable Tablet 324 mg Route: PO; ca1 12:00 Follow up: Response: No adverse reaction ca1 11:00 Drug: NS 0.9% 1000 ml Route: IV; Rate: 75 ml/hr; Site: right forearm; ca1 11:02 Drug: Phenergan 6.25 mg Route: IVP; Site: right forearm; ca1 12:00 Follow up: Response: No adverse reaction; Nausea is decreased ca1 11:05 Drug: Pepcid 20 mg Route: IVP; Site: right forearm; ca1 12:00 Follow up: Response: No adverse reaction ca1 11:11 Not Given (on back order. VO change to Pepcid 20mg IV): ProTONIX 40 mg IVP once ca1 11:25 Drug: Ativan 0.5 mg Route: IVP; Site: right forearm; ca1 12:30 Follow up: Response: No adverse reaction; Anxiety decreased ca1 Outcome: 16:34 Discharge ordered by MD. boone 16:58 Discharged to home ambulatory. ca1 16:58 Condition: stable 16:58 Discharge instructions given to patient, Instructed on discharge instructions, follow up and referral plans. medication usage, Demonstrated understanding of instructions, follow-up care, medications, Prescriptions given X 1. 16:59 Patient left the ED. ca1 Signatures: Dispatcher [employer] Lea Danielson, ECCI GABRIELP-America Doyle, RN RN aa5 Melissa Paez RN RN ca1 Katya Zheng ag5
--- NOTE | 2020-02-05 16:35 | EDPHYS ---
Physician Documentation [facility] Name: Kim Mera Age: 74 yrs Sex: Female : 1945 Arrival Date: 02/05/2020 Time: 10:36 Bed 13 Private MD: ED Physician Magdy Beasley HPI: 02/04 11:06 This 74 yrs old Female presents to ER via Ambulatory with complaints of Chest snw Pain, Nausea. 11:06 Onset: The symptoms/episode began/occurred suddenly, this morning. Associated signs and snw symptoms: Pertinent positives: nausea and diaphoresis. The patient has not experienced similar symptoms in the past. seeing Dr. Davison. Historical: - Allergies: 10:49 adhesive tape; aa5 10:49 HYDROCODONE; aa5 10:49 Hydromorphone; aa5 10:49 Morphine; aa5 - Home Meds: 10:49 Aspirin Oral [Active]; Unknown medication for cholesterol [Active]; aa5 - PMHx: 10:49 Arthritis; Firbomyalgia; High Cholesterol; restless leg syndrome; aa5 - PSHx: 10:49 back and neck surgery; Cholecystectomy; Hysterectomy; aa5 - Immunization history:: Flu vaccine is not up to date. - Social history:: Smoking status: Patient denies any tobacco usage or history of. ROS: 11:05 Constitutional: Negative for fever, chills, and weight loss, Eyes: Negative for injury, snw pain, redness, and discharge, ENT: Negative for injury, pain, and discharge, Cardiovascular: Positive for chest pain, denies palpitations or edema, Positive for diaphoresis and nausea this am Respiratory: Negative for shortness of breath, cough, wheezing, and pleuritic chest pain, Back: Negative for injury and pain, : Negative for injury, bleeding, discharge, and swelling, MS/Extremity: Negative for injury and deformity, Skin: Negative for injury, rash, and discoloration, Neuro: Negative for headache, weakness, numbness, tingling, and seizure, Psych: Negative for depression, anxiety, suicide ideation, homicidal ideation, and hallucinations. 11:05 Abdomen/GI: Positive for nausea. Exam: 11:05 Head/Face: Normocephalic, atraumatic. Eyes: Pupils equal round and reactive to light, snw extra-ocular motions intact. Lids and lashes normal. Conjunctiva and sclera are non-icteric and not injected. Cornea within normal limits. Periorbital areas with no swelling, redness, or edema. ENT: Nares patent. No nasal discharge, no septal abnormalities noted. Tympanic membranes are normal and external auditory canals are clear. Oropharynx with no redness, swelling, or masses, exudates, or evidence of obstruction, uvula midline. Mucous membranes moist. Neck: Trachea midline, no thyromegaly or masses palpated, and no cervical lymphadenopathy. Supple, full range of motion without nuchal rigidity, or vertebral point tenderness. No Meningismus. Chest/axilla: Normal chest wall appearance and motion. Nontender with no deformity. No lesions are appreciated. Cardiovascular: Regular rate and rhythm with a normal S1 and S2. No gallops, murmurs, or rubs. Normal PMI, no JVD. No pulse deficits. Respiratory: Lungs have equal breath sounds bilaterally, clear to auscultation and percussion. No rales, rhonchi or wheezes noted. No increased work of breathing, no retractions or nasal flaring. Abdomen/GI: Soft, non-tender, with normal bowel sounds. No distension or tympany. No guarding or rebound. No evidence of tenderness throughout. Back: No spinal tenderness. No costovertebral tenderness. Full range of motion. Skin: Warm, dry with normal turgor. Normal color with no rashes, no lesions, and no evidence of cellulitis. MS/ Extremity: Pulses equal, no cyanosis. Neurovascular intact. Full, normal range of motion. Neuro: Awake and alert, GCS 15, oriented to person, place, time, and situation. Cranial nerves II-XII grossly intact. Motor strength 5/5 in all extremities. Sensory grossly intact. Cerebellar exam normal. Normal gait. Psych: Awake, alert, with orientation to person, place and time. Behavior, mood, and affect are within normal limits. 11:05 Constitutional: The patient appears alert, anxious, restless, uncomfortable. Vital Signs: 10:38 BP 161 / 73; Pulse 65; Resp 20 S; Temp 98.6(O); Pulse Ox 100% on R/A; Weight 78.47 kg aa5 (R); Height 5 ft. 9 in. (175.26 cm) (R); Pain 6/10; 11:49 BP 133 / 58; Pulse 58; Resp 18 S; Pulse Ox 95% on R/A; ca1 13:01 BP 136 / 60; Pulse 60; Resp 16 S; Pulse Ox 100% ; ca1 13:43 BP 132 / 66; Pulse 62; Resp 16 S; Pulse Ox 100% on R/A; ca1 14:45 BP 127 / 69; Pulse 56; Resp 16 S; Pulse Ox 99% on R/A; ca1 16:13 BP 127 / 51; Pulse 56; Resp 16 S; Pulse Ox 99% on R/A; ca1 16:52 BP 123 / 66; Pulse 61; Resp 17 S; Pulse Ox 100% on R/A; ca1 10:38 Body Mass Index 25.55 (78.47 kg, 175.26 cm) aa5 MDM: 10:47 Patient medically screened. snw 11:00 Data reviewed: vital signs, nurses notes. Data interpreted: Pulse oximetry: on room air snw is 100 %. Interpretation: normal. Counseling: I had a detailed discussion with the patient and/or guardian regarding: the historical points, exam findings, and any diagnostic results supporting the discharge/admit diagnosis, the presence of at least one elevated blood pressure reading (>120/80) during this emergency department visit, lab results. Physician consultation: A Paulo WRIGHT reports that he/she is not the patient's physician, Pt states she changed from Dr. Bates to Dr. Davison a few months ago. 02/04 10:46 Order name: Basic Metabolic Panel; Complete Time: 11:39 snw 02/04 10:46 Order name: CBC with Diff; Complete Time: 11:12 snw 02/04 10:46 Order name: LFT's; Complete Time: 11:39 snw 02/04 10:46 Order name: Magnesium; Complete Time: 11:39 snw 02/04 10:46 Order name: NT PRO-BNP; Complete Time: 11:39 snw 02/04 10:46 Order name: PT-INR; Complete Time: 11:17 snw 02/04 10:46 Order name: Troponin (emerg Dept Use Only); Complete Time: 11:39 snw 02/04 10:46 Order name: XRAY Chest (1 view); Complete Time: 11:39 snw 02/04 10:46 Order name: Lipase; Complete Time: 11:39 snw 02/04 14:24 Order name: Troponin (emerg Dept Use Only); Complete Time: 16:17 snw 02/04 10:46 Order name: EKG; Complete Time: 10:47 snw 02/04 10:46 Order name: Cardiac monitoring; Complete Time: 10:50 snw 02/04 10:46 Order name: EKG - Nurse/Tech; Complete Time: 10:50 snw 02/04 10:46 Order name: IV Saline Lock; Complete Time: 10:59 snw 02/04 10:46 Order name: Labs collected and sent; Complete Time: 10:59 snw 02/04 10:46 Order name: O2 Per Protocol; Complete Time: 10:50 snw 02/04 10:46 Order name: O2 Sat Monitoring; Complete Time: 10:50 snw 02/04 14:24 Order name: EKG; Complete Time: 14:25 snw EC:00 Rate is 62 beats/min. Rhythm is regular. QRS [place] is Normal. [place] interval is normal. QRS snw interval is normal. QT interval is normal. No Q waves. T waves are Normal. No ST changes noted. Clinical impression: Normal ECG. 16:35 Rate is 55 beats/min. Rhythm is regular. QRS [place] is Normal. No Q waves. T waves are snw Normal. No ST changes noted. Clinical impression: Normal ECG. Administered Medications: 11:00 Drug: Aspirin Chewable Tablet 324 mg Route: PO; ca1 12:00 Follow up: Response: No adverse reaction ca1 11:00 Drug: NS 0.9% 1000 ml Route: IV; Rate: 75 ml/hr; Site: right forearm; ca1 11:02 Drug: Phenergan 6.25 mg Route: IVP; Site: right forearm; ca1 12:00 Follow up: Response: No adverse reaction; Nausea is decreased ca1 11:05 Drug: Pepcid 20 mg Route: IVP; Site: right forearm; ca1 12:00 Follow up: Response: No adverse reaction ca1 11:11 Not Given (on back order. VO change to Pepcid 20mg IV): ProTONIX 40 mg IVP once ca1 11:25 Drug: Ativan 0.5 mg Route: IVP; Site: right forearm; ca1 12:30 Follow up: Response: No adverse reaction; Anxiety decreased ca1 Disposition: 17:32 Co-signature as Attending Physician, Magdy Beasley MD I agree with the assessment and kdr plan of care. Disposition: 02/05/20 16:34 Discharged to Home. Impression: Chest pain, unspecified, Malaise and fatigue. - Condition is Stable. - Discharge Instructions: Nonspecific Chest Pain, Gastroesophageal Reflux Disease, Adult. - Prescriptions for Protonix 40 mg Oral Tablet - take 1 tablet by ORAL route once daily; 30 tablet. - Medication Reconciliation Form, Thank You Letter, Antibiotic Education, Prescription Opioid Use form. - Follow up: Emergency Department; When: As needed; Reason: Worsening of condition. Follow up: Private Physician; When: 2 - 3 days; Reason: Re-evaluation by your physician. Signatures: Dispatcher [employer] EDMS Magdy Beasley MD MD kdr Waters, Shelly, DIRECTOR CREDIT RISK-C DIRECTOR CREDIT RISK-Csnw America Isbell RN RN aa5 Melissa Paez RN RN ca1 Corrections: (The following items were deleted from the chart) 16:59 16:34 02/05/2020 16:34 Discharged to Home. Impression: Chest pain, unspecified; Malaise ca1 and fatigue. Condition is Stable. Forms are Medication Reconciliation Form, Thank You Letter, Antibiotic Education, Prescription Opioid Use. Follow up: Emergency Department; When: As needed; Reason: Worsening of condition. Follow up: Private Physician; When: 2 - 3 days; Reason: Re-evaluation by your physician. snw
[2020-02-05 17:04] VITALS: TEMP 98.6
[2020-02-05 17:12] VITALS: BP 123/66; O2SAT 100
--- NOTE | 2020-02-07 16:14 | EKG ---
Test Date: 2020-02-05 Test Time: 10:45:49 Luncheonette Operator: MEAGAN MEASUREMENT RESULTS: Intervals: Rate: 62 NV: 148 QRSD: 102 QT: 440 QTc: 446 [place]: P: 28 NV: 148 QRS: -20 T: 71 INTERPRETIVE STATEMENTS: Normal sinus rhythm Normal ECG Compared to ECG 08/02/2019 12:09:30 Sinus bradycardia no longer present Electronically Signed On 02-07-20 16:10:00 REEL SYSTEM OPERATOR by Sandor Martinez
--- NOTE | 2020-02-07 16:14 | EKG ---
Test Date: 2020-02-05 Test Time: 16:24:09 Automation Specialist: MEAGAN MEASUREMENT RESULTS: Intervals: Rate: 55 MO: 152 QRSD: 108 QT: 470 QTc: 449 [place]: P: 59 MO: 152 QRS: 9 T: 77 INTERPRETIVE STATEMENTS: Sinus bradycardia Otherwise normal ECG Compared to ECG 02/05/2020 10:45:49 Sinus rhythm no longer present Electronically Signed On 02-07-20 16:09:52 SOFTWARE SUPPORT ENGINEER by Sandor Martinez
== END 2020-02-05 16:59 | disposition home or self-care (01) ==
LOC: ER 10:33
DX: R07.9 Chest pain, unspecified (principal); R53.81 Other malaise; R53.83 Other fatigue; E78.00 Pure hypercholesterolemia, unspecified; Z79.82 Long term (current) use of aspirin; Z88.5 Allergy status to narcotic agent; Z91.048 Other nonmedicinal substance allergy status
CPT/HCPCS: 93005 ×2; 85025; 80048; 36415; 83735; 85610; 80076; 84484 ×2; 83690; 83880; 71045; 96375; 96374; 99285; J2550; J7030

== ENCOUNTER 2020-12-14 11:48 | Emergency (ER) | payer OTHER ==
[2020-12-14 12:37] LABS: Absolute Lymphocytes (CBC) 1.4 K/uL (0.7-4.9); Basophils % 0.3 % (0-1.3); Hematocrit 45.6 % (36.0-45.0); Lymphocytes % 24.7 % (15.3-44.8); MPV 8.7 fL (7.6-11.3); RBC Red Blood Cell Count 5.19 M/uL (3.86-4.86)
[2020-12-14 12:49] LABS: Albumin 3.5 g/dL (3.4-5.0); Bilirubin Direct 0.2 mg/dL (0-0.2); Bilirubin Total 0.6 mg/dL (0.2-1.0); Protein, Total 6.9 g/dL (6.4-8.2)
--- NOTE | 2020-12-14 13:26 | RAD REPORT ---
EXAM DESCRIPTION: CTAbdomen Pelvis W Contrast - 12/14/2020 1:01 pm CLINICAL HISTORY: Abdominal pain. ABD PAIN COMPARISON: Abdomen Pelvis W Contrast dated 11/22/2018; Abdomen Pelvis W Contrast dated 7; CT ABD PELVIS W CONTRAST dated 08/31/2013 TECHNIQUE: Biphasic CT imaging of the abdomen and pelvis was performed with 100 ml non-ionic IV cont rast. All CT scans are performed using dose optimization technique as appropriate and may include automated exposure control or mA/KV adjustment according to patient size. FINDINGS: Linear atelectasis is seen in both lung bases posteriorly.Cholecystectomy clips. The liver, spleen, pancreas, adrenal glands and kidneys are within normal limits. No bowel obstruction, free air, free fluid or abscess. The appendix is not identified as a discrete structure, however, no secondary findings of appendicitis are identified. No evidence of significan t lymphadenopathy. Hardware is present in the proximal left femur. Postsurgical clips are seen right inguinal region. Mo derate fat containing left inguinal hernia. IMPRESSION: No acute intra-abdominal or pelvic finding.
--- NOTE | 2020-12-14 14:06 | ER ---
Nurse's Notes [facility] Name: Kim Mera Age: 75 yrs Sex: Female : 1945 Arrival Date: 12/14/2020 Time: 11:49 Bed 23 Private MD: Dylan Davison Diagnosis: Right upper quadrant abdominal tenderness Presentation: 12/14 12:10 Chief complaint: Patient states: I have been having RUQ pain in my abdomen for about ld1 2-3 weeks, it comes and goes but today it got worse. Sometimes the pain radiates to my right shoulder. Coronavirus screen: At this time, the client does not indicate any symptoms associated with coronavirus-19. Ebola Screen: No symptoms or risks identified at this time. Initial Sepsis Screen: Does the patient meet any 2 criteria? No. Patient's initial sepsis screen is negative. Does the patient have a suspected source of infection? No. Patient's initial sepsis screen is negative. Risk Assessment: Do you want to hurt yourself or someone else? Patient reports no desire to harm self or others. Onset of symptoms was December 14, 2020. 12:10 Method Of Arrival: Ambulatory ld1 12:10 Acuity: JUAN 3 ld1 Triage Assessment: 12:13 General: Appears in no apparent distress. comfortable, Behavior is calm, cooperative, ld1 appropriate for age. Pain: Complains of pain in right upper quadrant Pain radiates to anterior aspect of right shoulder Pain currently is 5 out of 10 on a pain scale. Quality of pain is described as dull, Pain began gradually, 2-3 weeks Is intermittent. EENT: No signs and/or symptoms were reported regarding the EENT system. Neuro: Level of Consciousness is awake, alert, obeys commands, Oriented to person, place, time, situation. Cardiovascular: Capillary refill < 3 seconds Patient's skin is warm and dry. Rhythm is sinus rhythm. Respiratory: Airway is patent Respiratory effort is even, unlabored, Respiratory pattern is regular, symmetrical. GI: Abdomen is round non-distended, Reports upper abdominal pain, nausea. : No signs and/or symptoms were reported regarding the genitourinary system. Derm: Reports Getting hot and then cold at night with night sweats. Musculoskeletal: No signs and/or symptoms reported regarding the musculoskeletal system. Historical: - Allergies: 12:12 adhesive tape; ld1 12:12 HYDROCODONE; ld1 12:12 Morphine; ld1 12:12 hydromorphone; ld1 - Home Meds: 12:12 Mirapex Oral [Active]; ld1 - PMHx: 12:12 Arthritis; Firbomyalgia; High Cholesterol; restless leg syndrome; ld1 - PSHx: 12:13 Cholecystectomy; ld1 - Immunization history:: Adult Immunizations up to date, Client reports having NOT received the Covid vaccine. - Social history:: Smoking status: Patient denies any tobacco usage or history of. Patient uses alcohol, on a daily basis. Wine at dinner and sometimes she drinks a margairta too.. - Family history:: Mother has/had Pancreatic cancer. Screenin:15 Abuse screen: Denies threats or abuse. Denies injuries from another. Nutritional ld1 screening: No deficits noted. Tuberculosis screening: Possible symptoms: recent night sweats, unexplained weight loss. Fall Risk None identified. Assessment: 12:15 Reassessment: See triage assessment. ld1 13:47 Reassessment: Patient appears in no apparent distress at this time. No changes from ld1 previously documented assessment. Patient and/or family updated on plan of care and expected duration. Pain level reassessed. Patient is alert, oriented x 3, equal unlabored respirations, skin warm/dry/pink. 14:33 GI: Bowel sounds present X 4 quads. Abd is soft Abdomen is tender to palpation in right ld1 upper quadrant. Vital Signs: 12:10 BP 128 / 58; Pulse 62; Resp 14; Temp 98.6(O); Pulse Ox 100% on R/A; Weight 77.56 kg; ld1 Height 5 ft. 9 in. (175.26 cm); Pain 5/10; 13:47 BP 128 / 62; Pulse 59; Resp 14; Pulse Ox 97% on R/A; ld1 12:10 Body Mass Index 25.25 (77.56 kg, 175.26 cm) ld1 ED Course: 11:49 Patient arrived in ED. as 11:49 Dylan Davison DO is Private Physician. as 11:59 Yudy Carias, NIC is Primary Nurse. ld1 12:05 Dieter Lewis PA is PHCP. jr8 12:05 Radha Davison MD is Attending Physician. jr8 12:12 Triage completed. ld1 12:13 Arm band placed on right wrist. ld1 12:15 Patient has correct armband on for positive identification. Bed in low position. Call ld1 light in reach. Side rails up X2. property assessment monitor on. Pulse ox on. NIBP on. Door closed. Noise minimized. Warm blanket given. 12:15 No provider procedures requiring assistance completed. Inserted saline lock: 20 gauge ld1 in right antecubital area, using aseptic technique. Blood collected. 13:01 CT Abd/Pelvis - IV Contrast Only In Process Unspecified. EDMS 14:04 Moi Graff MD is Referral Physician. jr8 14:33 IV discontinued, intact, bleeding controlled, No redness/swelling at site. ld1 Administered Medications: No medications were administered Outcome: 14:06 Discharge ordered by . jr8 14:33 Discharged to home ambulatory. ld1 14:33 Condition: stable 14:33 Discharge instructions given to patient, Instructed on discharge instructions, follow up and referral plans. medication usage, Demonstrated understanding of instructions, follow-up care, medications, Prescriptions given X 2. 14:33 Patient left the ED. ld1 Signatures: Dispatcher [employer] EDMS Breonna Guerrero Josh, PA PA jr8 Yudy Carias RN RN ld1 Corrections: (The following items were deleted from the chart) 12:13 12:12 PSHx: None; ld1 ld1
--- NOTE | 2020-12-14 14:07 | EDPHYS ---
Physician Documentation [facility] Name: Kim Mera Age: 75 yrs Sex: Female : 1945 Arrival Date: 12/14/2020 Time: 11:49 Bed 23 Private MD: Saman [facility] ED Physician Radha Davison HPI: 12/14 13:31 This 75 yrs old Female presents to ER via Ambulatory with complaints of jr8 Abdominal Pain, Back Pain. 13:31 Onset: The symptoms/episode began/occurred gradually. The symptoms radiate to the right jr8 shoulder. Associated signs and symptoms: Pertinent positives: nausea. The symptoms are described as sharp. Modifying factors: The symptoms are alleviated by nothing, the symptoms are aggravated by nothing. Severity of pain: At its worst the pain was moderate in the emergency department the pain is unchanged. The patient has not experienced similar symptoms in the past. The patient has not recently seen a physician. Is a 75-year-old female that presented to the emergency room with right upper quadrant abdominal pain radiating to the right back and right shoulder. Patient denies recent fevers or diarrhea but has had nausea without vomiting. Patient status post cholecystectomy several years ago. Historical: - Allergies: 12:12 adhesive tape; ld1 12:12 HYDROCODONE; ld1 12:12 Morphine; ld1 12:12 hydromorphone; ld1 - Home Meds: 12:12 Mirapex Oral [Active]; ld1 - PMHx: 12:12 Arthritis; Firbomyalgia; High Cholesterol; restless leg syndrome; ld1 - PSHx: 12:13 Cholecystectomy; ld1 - Immunization history:: Adult Immunizations up to date, Client reports having NOT received the Covid vaccine. - Social history:: Smoking status: Patient denies any tobacco usage or history of. Patient uses alcohol, on a daily basis. Wine at dinner and sometimes she drinks a margairta too.. - Family history:: Mother has/had Pancreatic cancer. ROS: 14:03 Eyes: Negative for injury, pain, redness, and discharge, ENT: Negative for injury, jr8 pain, and discharge, Neck: Negative for injury, pain, and swelling, Cardiovascular: Negative for chest pain, palpitations, and edema, Respiratory: Negative for shortness of breath, cough, wheezing, and pleuritic chest pain, Back: Negative for injury and pain, MS/Extremity: Negative for injury and deformity, Skin: Negative for injury, rash, and discoloration, Neuro: Negative for headache, weakness, numbness, tingling, and seizure. 14:03 Abdomen/GI: Positive for abdominal pain, nausea, Negative for vomiting, diarrhea. Exam: 14:03 Eyes: Pupils equal round and reactive to light, extra-ocular motions intact. Lids and jr8 lashes normal. Conjunctiva and sclera are non-icteric and not injected. Cornea within normal limits. Periorbital areas with no swelling, redness, or edema. ENT: Nares patent. No nasal discharge, no septal abnormalities noted. Tympanic membranes are normal and external auditory canals are clear. Oropharynx with no redness, swelling, or masses, exudates, or evidence of obstruction, uvula midline. Mucous membranes moist. Neck: Trachea midline, no thyromegaly or masses palpated, and no cervical lymphadenopathy. Supple, full range of motion without nuchal rigidity, or vertebral point tenderness. No Meningismus. Cardiovascular: Regular rate and rhythm with a normal S1 and S2. No gallops, murmurs, or rubs. Normal PMI, no JVD. No pulse deficits. Respiratory: Lungs have equal breath sounds bilaterally, clear to auscultation and percussion. No rales, rhonchi or wheezes noted. No increased work of breathing, no retractions or nasal flaring. Back: No spinal tenderness. No costovertebral tenderness. Full range of motion. Skin: Warm, dry with normal turgor. Normal color with no rashes, no lesions, and no evidence of cellulitis. MS/ Extremity: Pulses equal, no cyanosis. Neurovascular intact. Full, normal range of motion. Neuro: Awake and alert, GCS 15, oriented to person, place, time, and situation. Cranial nerves II-XII grossly intact. Motor strength 5/5 in all extremities. Sensory grossly intact. Cerebellar exam normal. Normal gait. 14:03 Abdomen/GI: Inspection: abdomen appears normal, Bowel sounds: active, all quadrants, Palpation: soft, in all quadrants, mild abdominal tenderness, in the epigastric area and right upper quadrant, mass, is not appreciated, rebound tenderness, is not appreciated, voluntary guarding, is not appreciated, involuntary guarding, is not appreciated, no appreciated organomegaly, Indicators: McBurney's point is not tender, Negrete's sign is negative, Rovsing's sign is negative, Liver: tenderness, is not appreciated. Vital Signs: 12:10 BP 128 / 58; Pulse 62; Resp 14; Temp 98.6(O); Pulse Ox 100% on R/A; Weight 77.56 kg; ld1 Height 5 ft. 9 in. (175.26 cm); Pain 5/10; 13:47 BP 128 / 62; Pulse 59; Resp 14; Pulse Ox 97% on R/A; ld1 12:10 Body Mass Index 25.25 (77.56 kg, 175.26 cm) ld1 MDM: 12:05 Patient medically screened. jr8 14:03 Data reviewed: vital signs, nurses notes, lab test result(s), radiologic studies, CT jr8 scan. Data interpreted: Pulse oximetry: on room air is 97 %. Interpretation: normal. 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 12/14 12:21 Order name: Basic Metabolic Panel; Complete Time: 12:56 jr8 12/14 12:21 Order name: CBC with Diff; Complete Time: 12:56 jr8 12/14 12:21 Order name: Hepatic Function; Complete Time: 12:56 jr8 12/14 12:21 Order name: Lipase; Complete Time: 12:56 jr8 12/14 12:21 Order name: IV Saline Lock; Complete Time: 12:22 jr8 12/14 12:22 Order name: CT Abd/Pelvis - IV Contrast Only; Complete Time: 13:30 jr8 12/14 12:21 Order name: Labs collected and sent; Complete Time: 12:26 jr8 Administered Medications: No medications were administered Disposition: 12/15 09:14 Co-signature as Attending Physician, Radha Davison MD I agree with the assessment and sp3 plan of care. Disposition Summary: 12/14/20 14:06 Discharge Ordered Location: Home [facility] Problem: new jr8 Symptoms: have improved jr8 Condition: Stable jr8 Diagnosis - Right upper quadrant abdominal tenderness jr8 Followup: jr8 - With: Moi Graff MD - When: 2 - 3 days - Reason: Recheck today's complaints, Continuance of care, Re-evaluation by your physician Discharge Instructions: - Discharge Summary Sheet jr8 - Abdominal Pain, Adult jr8 Forms: - Medication Reconciliation Form jr8 - Thank You Letter jr8 - Antibiotic Education jr8 - Prescription Opioid Use jr8 Prescriptions: - Zofran 4 mg Oral Tablet - take 1 tablet by ORAL route every 12 hours As needed; 20 tablet; Refills: 0, jr8 Product Selection Permitted - dicyclomine 20 mg Oral Tablet - take 1 tablet by ORAL route 3 times per day As needed; 20 tablet; Refills: 0, jr8 Product Selection Permitted Signatures: Dispatcher [employer] Dieter Tran PA PA jr8 Yudy Carias, RN RN ld1 Radha Davison MD MD sp3 Corrections: (The following items were deleted from the chart) 12/14 12:13 12:12 PSHx: None; ld1 ld1
[2020-12-14 15:05] VITALS: TEMP 98.6
[2020-12-14 15:07] VITALS: BP 128/62; O2SAT 97
--- OUTSIDE RECORDS SUMMARY | 2020-12-19 16:24 | XMS REPORT | Continuity of Care Document ---
:1945 Author Organization [facility] t Address [address] [place] [address] Care Team Providers Name Role Phone CAROL Attending Clinician Unavailable Shane Sultana DO Attending Clinician Lab, Fam Pob I Attending Clinician Unavailable Suzette DREW Attending Clinician SUZETTE Attending Clinician Unavailable SABA Attending Clinician Unavailable Mau FARRAR Attending Clinician Unavailable Mau Farrar MD Attending Clinician Doctor Unassigned, Name Attending Clinician Unavailable Shwetha MARLOW S Attending Clinician BRYN ZIMMERMAN Attending Clinician Unavailable César DA SILVA Attending Clinician Unavailable Cele SMITH Attending Clinician Unavailable Cele Smith MD Attending Clinician 1, Lab Attending Clinician Unavailable HADNOTT Attending Clinician Unavailable Cele SMITH Admitting Clinician Unavailable Payers Payer Name Policy Type Policy Number Effective Date Expiration Date César BURGER [id number] 2019 00:00:00 Problems Condition Condition Condition Status Onset Resolution Last Treating Co mments Source Name Details Category Date Date Treatment Clinician Date STATUS Condition Active 2013-022014-07-02 Mem [facility]ria POST 2-05 11:18:31 l HYSTERECTO STATUS 00:00: Herm levi MY POST 00 HYSTERECTO MY Active 4 Condition 07/02/2014 [facility] LUMBAR Condition Active 2013-022014-07-02 Mem oria RADICULOPA 2-05 11:18:31 l THY LUMBAR 00:00: [place] RADICULOPA 00 THY Active 01/10/2014 Condition 5 [...] spine pain spine pain [facility] [place] [facility] Lumbar Lumbar Problem Active [facility] spine pain spine pain [facility] [place] [facility] No known No known Disease Unive rs active active ity of problems problems [facility] Allergies, Adverse Reactions, Alerts Allergy Allergy Status Severity Reaction(s) Onset Inactive Treating Comm ents Source Name Type Date Date Clinician Morphine Propensi Active Rash 2015-02 Univer s ty to -11 ity of adverse 00:00: [place] reaction 00 Medical s Branch MORPHINE DRUG Active Low Rash 2015-02 Univers INGREDI -11 ity of 00:00: [place] 00 Medical Branch TAPE TAPE Active 2013-02 Memoria 2-05 l 00:00: [place] 00 LATEX LATEX Active 2013-02 Memoria 2-05 l 00:00: [place] 00 Hydrocod Propensi Active Hives itchy Univer s one ty to 5-15 ity of adverse 00:00: [place] reaction 00 Medical s Branch HYDROCOD DRUG Active High Hives Univers ONE INGREDI -15 ity of 00:00: [place] 00 Medical Branch Social History Social Habit Start Date Stop Date Quantity Comments Source Exposure to Not sure [facility] SARS-CoV-2 (event) [facility] Alcohol intake 2019-11-13 2019-11-13 Current drinker Unive rsity of 00:00:00 00:00:00 of alcohol [facility] (finding) [place] Cigarettes smoked 2019-11-13 2019-11-13 Univers ity of current (pack per 00:00:00 00:00:00 [place] ) - Reported Branch Cigarette 2019-11-13 2019-11-13 University of pack-years 00:00:00 00:00:00 [facility] Tobacco use and 2019-11-13 2019-11-13 Never used Universit y of exposure 00:00:00 00:00:00 [facility] History of tobacco 1974-02-06 Smoker Univer sity of use 00:00:00 [facility] Sex [birth year] Universit y of 00:00:00 00:00:00 [facility] Smoking Status Start Date Stop Date Source Former smoker 2019-11-13 00:00:00 2019-11-13 00:00:00 Universi ty of [facility] Never smoker [facility] Ordered Filled Start Stop Current Ordering Indication Dosage Frequency Signature Comments Components Source Medication Medication Date Date Medication? Clinician (SIG) Name Name methylPREDN 2019-02 Yes 84mg Take 21 Uni vers ISolone 0-07 tablets by ity of (MEDROL, 00:00: mouth [place] EVANGELINA,) 4 mg 00 SEE-INSTRU Med ical tablets CTIONS. Branch follow package directions methylPREDN 2020- Yes 84mg Take 21 Uni vers ISolone 0-07 tablets by ity of (MEDROL, 00:00: mouth [place] EVANGELINA,) 4 mg 00 SEE-INSTRU Med ical tablets CTIONS. Branch follow package directions methylPREDN 2020- Yes 84mg Take 21 Uni vers ISolone 0-07 tablets by ity of (MEDROL, 00:00: mouth [place] EVANGELINA,) 4 mg 00 SEE-INSTRU Med ical tablets CTIONS. Branch follow package directions methylPREDN 2020- Yes 84mg Take 21 Uni vers ISolone 0-07 tablets by ity of (MEDROL, 00:00: mouth [place] EVANGELINA,) 4 mg 00 SEE-INSTRU Med ical tablets CTIONS. Branch follow package directions methylPREDN 2020-1 Yes 84mg Take 21 Uni vers ISolone 0-07 tablets by ity of (MEDROL, 00:00: mouth [place] EVANGELINA,) 4 mg 00 SEE-INSTRU Med ical tablets CTIONS. Branch follow package directions diclofenac 2020-0 Yes 75mg Take 1 Unive rs 75 mg EC 6-11 tablet by ity of tablet 00:00: mouth 2 (two) Medical times Branch daily with meals. diclofenac 2020-0 Yes 75mg Take 1 Unive rs 75 mg EC 6-11 tablet by ity of tablet 00:00: mouth 2 (two) Medical times Branch daily with meals. diclofenac 2020-0 Yes 75mg Take 1 Unive rs 75 mg EC 6-11 tablet by ity of tablet 00:00: mouth 2 (two) Medical times Branch daily with meals. diclofenac 2020-0 Yes 75mg Take 1 Unive rs 75 mg EC 6-11 tablet by ity of tablet 00:00: mouth (two) Medical times Branch daily with meals. diclofenac 2020-0 Yes 75mg Take 1 Unive rs 75 mg EC 6-11 tablet by ity of tablet 00:00: mouth (two) Medical times Branch daily with meals. diclofenac 2020-0 Yes 75mg Take 1 Unive rs 75 mg EC 6-11 tablet by ity of tablet 00:00: mouth 2 (two) Medical times Branch daily with meals. diclofenac 2020-0 Yes 75mg Take 1 Unive rs 75 mg EC 6-11 tablet by ity of tablet 00:00: mouth 2 (two) Medical times Branch daily with meals. diclofenac 2020-0 Yes 75mg Take 1 Unive rs 75 mg EC 6-11 tablet by ity of tablet 00:00: mouth 2 (two) Medical times Branch daily with meals. traMADol 50 2020-0 Yes Univer s mg tablet 6-03 ity of 00:00: 00 Medical Branch traMADol 50 2020-0 Yes Univer s mg tablet 6-03 ity of 00:00: 00 Medical Branch traMADol 50 2020-0 Yes Univer s mg tablet 6-03 ity of 00:00: 00 Medical Branch traMADol 50 2020-0 Yes Univer s mg tablet 6-03 ity of 00:00: [place] 00 Medical Branch traMADol 50 2020-0 Yes Univer s mg tablet 6- ity of 00:00: Medical Branch traMADol 50 2020-0 Yes Univer s mg tablet 6 ity of 00:00: [place] [facility] traMADol 50 2020-0 Yes Univer s mg tablet 6- ity of 00:00: [place] [facility] traMADol 50 2020-0 Yes Univer s mg tablet 6- ity of 00:00: [place] [facility] DICLOFENAC 2020-0 Yes [id number] TAKE 1 U nivers 75 mg EC 4-10 TABLET BY ity of tablet 00:00: [facility] TWICE Medical DAILY WITH Branch MEALS DICLOFENAC 2020-0 Yes [id number] TAKE 1 U nivers 75 mg EC 4-10 TABLET BY ity of tablet 00:00: [facility] TWICE Medical DAILY WITH Branch MEALS DICLOFENAC 2020-0 Yes [id number] TAKE 1 U nivers 75 mg EC 4-10 TABLET BY ity of tablet 00:00: [facility] TWICE Medical DAILY WITH Branch MEALS DICLOFENAC 2020-0 Yes [id number] TAKE 1 U nivers 75 mg EC 4-10 TABLET BY ity of tablet 00:00: [facility] TWICE Medical DAILY WITH Branch MEALS DICLOFENAC 2020-0 Yes [id number] TAKE 1 U nivers 75 mg EC 4-10 TABLET BY ity of tablet 00:00: [facility] TW[facility] Medical DAILY WITH Branch MEALS DICLOFENAC 2020-0 Yes [id number] TAKE 1 U nivers 75 mg EC 4-10 TABLET BY ity of tablet 00:00: [facility] TWICE Medical DAILY WITH Branch MEALS DICLOFENAC 2020-0 Yes [id number] TAKE 1 U nivers 75 mg EC 4-10 TABLET BY ity of tablet 00:00: [facility] TWICE Medical DAILY WITH Branch MEALS DICLOFENAC 2020-0 Yes [id number] TAKE 1 U nivers 75 mg EC 4-10 TABLET BY ity of tablet 00:00: [facility] TWICE Medical DAILY WITH Branch MEALS DICLOFENAC 2020-0 Yes [id number] TAKE 1 U nivers 75 mg EC 4-10 TABLET BY ity of tablet 00:00: [facility] TWICE Medical DAILY WITH Branch MEALS DICLOFENAC 2020-0 Yes [id number] TAKE 1 U nivers 75 mg EC 4-10 TABLET BY ity of tablet 00:00: [facility] TWICE Medical DAILY WITH Branch MEALS DICLOFENAC 2020-0 Yes [id number] TAKE 1 U nivers 75 mg EC 4-10 TABLET BY ity of tablet 00:00: [facility] TWICE Medical DAILY WITH Branch MEALS diclofenac 2020-0 Yes 75mg Take 1 Unive rs 75 mg EC 4-09 tablet by ity of tablet 00:00: mouth (two) Medical times Branch daily with meals. diclofenac 2020-0 2020- No 75mg Take 1 Univ ers 75 mg EC 4-09 04-10 tablet by ity o f tablet 00:00: 00:00 mouth 00 :00 (two) Medical times Branch daily with meals. diclofenac 2020-0 Yes [id number] 75mg Take 1 U nivers 75 mg EC 3-04 tablet by ity of tablet 00:00: mouth (two) Medical times Branch daily with meals. diclofenac 2020-0 Yes [id number] 75mg Take 1 U nivers 75 mg EC 3-04 tablet by ity of tablet 00:00: mouth (two) Medical times Branch daily with meals. diclofenac 2020-0 Yes [id number] 75mg Take 1 U nivers 75 mg EC 3-04 tablet by ity of tablet 00:00: mouth (two) Medical times Branch daily with meals. diclofenac 2020-0 Yes [id number] 75mg Take 1 U nivers 75 mg EC 3-04 tablet by ity of tablet 00:00: mouth (two) Medical times Branch daily with meals. diclofenac 2020-0 Yes [id number] 75mg Take 1 U nivers 75 mg EC 3-04 tablet by ity of tablet 00:00: mouth (two) Medical times Branch daily with meals. diclofenac 2020-0 Yes [id number] 75mg Take 1 U nivers 75 mg EC 3-04 tablet by ity of tablet 00:00: mouth (two) Medical times Branch daily with meals. diclofenac 2020-0 Yes [id number] 75mg Take 1 U nivers 75 mg EC 3-04 tablet by ity of tablet 00:00: mouth (two) Medical times Branch daily with meals. diclofenac 2020-0 Yes [id number] 75mg Take 1 U nivers 75 mg EC 3-04 tablet by ity of tablet 00:00: mouth (two) Medical times Branch daily with meals. diclofenac 2020-0 Yes [id number] 75mg Take 1 U nivers 75 mg EC 3-04 tablet by ity of tablet 00:00: mouth 2 [place] (two) Medical times Branch daily with meals. diclofenac 2020-0 Yes [id number] 75mg Take 1 U nivers 75 mg EC 3-04 tablet by ity of tablet 00:00: mouth 2 [place] (two) Medical times Branch daily with meals. diclofenac 2020-0 Yes [id number] 75mg Take 1 U nivers 75 mg EC 3-04 tablet by ity of tablet 00:00: mouth 2 [place] (two) Medical times Branch daily with meals. diclofenac 2020-0 Yes [id number] 75mg Take 1 U nivers 75 mg EC 3-04 tablet by ity of tablet 00:00: mouth 2 [place] (two) Medical times Branch daily with meals. diclofenac 2020-0 Yes [id number] 75mg Take 1 U nivers 75 mg EC 3-04 tablet by ity of tablet 00:00: mouth 2 [place] (two) Medical times Branch daily with meals. diclofenac 2020-0 Yes [id number] 75mg Take 1 U nivers 75 mg EC 3-04 tablet by ity of tablet 00:00: mouth 2 [place] (two) Medical times Branch daily with meals. diclofenac 2020-0 Yes [id number] 75mg Take 1 U nivers 75 mg EC 3-04 tablet by ity of tablet 00:00: mouth 2 [place] (two) Medical times Branch daily with meals. ibuprofen 2020-0 Yes 600mg Take 600 Uni vers 600 mg 2-26 mg by ity of tablet 21:00: mouth. [address] ibuprofen 2020-0 Yes 600mg Take 600 Uni vers 600 mg 2-26 mg by ity of tablet 21:00: mouth. [address] ibuprofen 2020-0 Yes 600mg Take 600 Uni vers 600 mg 2-26 mg by ity of tablet 21:00: mouth. [address] ibuprofen 2020-0 Yes 600mg Take 600 Uni vers 600 mg 2-26 mg by ity of tablet 21:00: mouth. [address] ibuprofen 2020-0 Yes 600mg Take 600 Uni vers 600 mg 2-26 mg by ity of tablet 21:00: mouth. [address] ibuprofen 2020-0 Yes 600mg Take 600 Uni vers 600 mg 2-26 mg by ity of tablet 21:00: mouth. [address] ibuprofen 2020-0 Yes 600mg Take 600 Uni vers 600 mg 2-26 mg by ity of tablet 21:00: mouth. [address] ibuprofen 2020-0 Yes 600mg Take 600 Uni vers 600 mg 2-26 mg by ity of tablet 21:00: mouth. [address] ibuprofen 2020-0 Yes 600mg Take 600 Uni vers 600 mg 2-26 mg by ity of tablet 21:00: mouth. [address] ibuprofen 2020-0 Yes 600mg Take 600 Uni vers 600 mg 2-26 mg by ity of tablet 21:00: mouth. [address] ibuprofen 2020-0 Yes 600mg Take 600 Uni vers 600 mg 2-26 mg by ity of tablet 21:00: mouth. [address] ibuprofen 2020-0 Yes 600mg Take 600 Uni vers 600 mg 2-26 mg by ity of tablet 21:00: mouth. [address] ibuprofen 2020-0 Yes 600mg Take 600 Uni vers 600 mg 2-26 mg by ity of tablet 21:00: mouth. [address] ibuprofen 2020-0 Yes 600mg Take 600 Uni vers 600 mg 2-26 mg by ity of tablet 21:00: mouth. [address] ibuprofen 2020-0 Yes 600mg Take 600 Uni vers 600 mg 2-26 mg by ity of tablet 21:00: mouth. [address] ibuprofen 2020-0 Yes 600mg Take 600 Uni vers 600 mg 2-26 mg by ity of tablet 21:00: mouth. [address] ibuprofen 2020-0 Yes 600mg Take 600 Uni vers 600 mg 2-26 mg by ity of tablet 21:00: mouth. [address] ibuprofen 2020-0 Yes 600mg Take 600 Uni vers 600 mg 2-26 mg by ity of tablet 21:00: mouth. [address] diclofenac 2020-0 Yes [id number] 75mg Take 1 U nivers 75 mg EC 2-26 tablet by ity of tablet 00:00: mouth 2 [place] (two) Medical times Branch daily with meals. diclofenac 2020-0 Yes [id number] 75mg Take 1 U nivers 75 mg EC 2-26 tablet by ity of tablet 00:00: mouth 2 [place] (two) Medical times Branch daily with meals. diclofenac 2020-0 Yes [id number] 75mg Take 1 U nivers 75 mg EC 2-26 tablet by ity of tablet 00:00: mouth 2 [place] 00 (two) Medical times Branch daily with meals. diclofenac 2020-0 2020- No [id number] 75mg Take 1 Univers 75 mg EC 04-03 tablet by ity o f tablet 00:00: 00:00 mouth 2 [place] 00 :00 (two) [facility] daily with meals. SERTraline 2020-0 Yes Univers 50 mg 2-07 ity of tablet 00:00: [address] SERTraline 2020-0 Yes Univers 50 mg 2-07 ity of tablet 00:00: [address] SERTraline 2020-0 Yes Univers 50 mg 2-07 ity of tablet 00:00: [address] SERTraline 2020-0 Yes Univers 50 mg 2-07 ity of tablet 00:00: [address] SERTraline 2020-0 Yes Univers 50 mg 2-07 ity of tablet 00:00: [address] SERTraline 2020-0 Yes Univers 50 mg 2-07 ity of tablet 00:00: [address] SERTraline 2020-0 Yes Univers 50 mg 2-07 ity of tablet 00:00: [address] SERTraline 2020-0 Yes Univers 50 mg 2-07 ity of tablet 00:00: [address] SERTraline 2020-0 Yes Univers 50 mg 2-07 ity of tablet 00:00: [address] SERTraline 2020-0 Yes Univers 50 mg 2-07 ity of tablet 00:00: [address] SERTraline 2020-0 Yes Univers 50 mg 2-07 ity of tablet 00:00: [address] SERTraline 2020-0 Yes Univers 50 mg 2-07 ity of tablet 00:00: [address] SERTraline 2020-0 Yes Univers 50 mg 2-07 ity of tablet 00:00: [address] SERTraline 2020-0 Yes Univers 50 mg 2-07 ity of tablet 00:00: [address] SERTraline 2020-0 Yes Univers 50 mg 2-07 ity of tablet 00:00: [address] SERTraline 2020-0 Yes Univers 50 mg 2-07 ity of tablet 00:00: [address] SERTraline 2020-0 Yes Univers 50 mg 2-07 ity of tablet 00:00: [address] SERTraline 2020-0 Yes Univers 50 mg 2-07 ity of tablet 00:00: [address] Branch iohexol 2019- No 25mL 25 mL, Univers (OMNIPAQUE 8-05 08-05 Oral, ity of 350 BULK) 14:30: 14:30 ONCE, 1 [place] :[place] dose, [facility] 09/10/18 at [place] 0930, Routine cholestyram Yes [id number] DISSOLVE 1 Univers ine light 8-04 SCOOPFUL ity of (CHOLESTYRA 00:00: IN FLUID [place] MINE LIGHT) 00 FOUR TIMES Me dical 4 gram DAILY. Branch powder cholestyram Yes [id number] DISSOLVE 1 Univers ine light 8-04 SCOOPFUL ity of (CHOLESTYRA 00:00: IN FLUID [place] MINE LIGHT) 00 FOUR TIMES Me dical 4 gram DAILY. Branch powder cholestyram Yes [id number] DISSOLVE 1 Univers ine light 8-04 SCOOPFUL ity of (CHOLESTYRA 00:00: IN FLUID [place] MINE LIGHT) 00 FOUR TIMES Me dical 4 gram DAILY. Branch powder cholestyram Yes [id number] DISSOLVE 1 Univers ine light 8-04 SCOOPFUL ity of (CHOLESTYRA 00:00: IN FLUID [place] MINE LIGHT) 00 FOUR TIMES Me dical 4 gram DAILY. Branch powder cholestyram Yes [id number] DISSOLVE 1 Univers ine light 8-04 SCOOPFUL ity of (CHOLESTYRA 00:00: IN FLUID [place] MINE LIGHT) 00 FOUR TIMES Me dical 4 gram DAILY. Branch powder cholestyram Yes [id number] DISSOLVE 1 Univers ine light 8-04 SCOOPFUL ity of (CHOLESTYRA 00:00: IN FLUID [place] MINE LIGHT) 00 FOUR TIMES Me dical 4 gram DAILY. Branch powder cholestyram Yes [id number] DISSOLVE 1 Univers ine light 8-04 SCOOPFUL ity of (CHOLESTYRA 00:00: IN FLUID [place] MINE LIGHT) 00 FOUR TIMES Me dical 4 gram DAILY. Branch powder cholestyram Yes [id number] DISSOLVE 1 Univers ine light 8-04 SCOOPFUL ity of (CHOLESTYRA 00:00: IN FLUID [place] MINE LIGHT) 00 FOUR TIMES Me dical 4 gram DAILY. Branch powder cholestyram Yes [id number] DISSOLVE 1 Univers ine light 8-04 SCOOPFUL ity of (CHOLESTYRA 00:00: IN FLUID [place] MINE LIGHT) 00 FOUR TIMES Me dical 4 gram DAILY. Branch powder cholestyram Yes [id number] DISSOLVE 1 Univers ine light 8-04 SCOOPFUL ity of (CHOLESTYRA 00:00: IN FLUID [place] MINE LIGHT) 00 FOUR TIMES Me dical 4 gram DAILY. Branch powder cholestyram Yes [id number] DISSOLVE 1 Univers ine light 8-04 SCOOPFUL ity of (CHOLESTYRA 00:00: IN FLUID [place] MINE LIGHT) 00 FOUR TIMES Me dical 4 gram DAILY. Branch powder cholestyram Yes [id number] DISSOLVE 1 Univers ine light 8-04 SCOOPFUL ity of (CHOLESTYRA 00:00: IN FLUID [place] MINE LIGHT) 00 FOUR TIMES Me dical 4 gram DAILY. Branch powder cholestyram Yes [id number] DISSOLVE 1 Univers ine light 8-04 SCOOPFUL ity of (CHOLESTYRA 00:00: IN FLUID [place] MINE LIGHT) 00 FOUR TIMES Me dical 4 gram DAILY. Branch powder cholestyram Yes [id number] DISSOLVE 1 Univers ine light 8-04 SCOOPFUL ity of (CHOLESTYRA 00:00: IN FLUID [place] MINE LIGHT) 00 FOUR TIMES Me dical 4 gram DAILY. Branch powder cholestyram Yes [id number] DISSOLVE 1 Univers ine light 8-04 SCOOPFUL ity of (CHOLESTYRA 00:00: IN FLUID [place] MINE LIGHT) 00 FOUR TIMES Me dical 4 gram DAILY. Branch powder cholestyram Yes [id number] DISSOLVE 1 Univers ine light 8-04 SCOOPFUL ity of (CHOLESTYRA 00:00: IN FLUID [place] MINE LIGHT) 00 FOUR TIMES Me dical 4 gram DAILY. Branch powder cholestyram Yes [id number] DISSOLVE 1 Univers ine light 8-04 SCOOPFUL ity of (CHOLESTYRA 00:00: IN FLUID [place] MINE LIGHT) 00 FOUR TIMES Me dical 4 gram DAILY. Branch powder cholestyram Yes [id number] DISSOLVE 1 Univers ine light 8-04 SCOOPFUL ity of (CHOLESTYRA 00:00: IN FLUID [place] MINE LIGHT) 00 FOUR TIMES Me dical 4 gram DAILY. Branch powder cholestyram Yes [id number] DISSOLVE 1 Univers ine light 8-04 SCOOPFUL ity of (CHOLESTYRA 00:00: IN FLUID [place] MINE LIGHT) 00 FOUR TIMES Me dical 4 gram DAILY. Branch powder cholestyram Yes [id number] DISSOLVE 1 Univers ine light 8-04 SCOOPFUL ity of (CHOLESTYRA 00:00: IN FLUID [place] MINE LIGHT) 00 FOUR TIMES Me dical 4 gram DAILY. Branch powder cholestyram Yes [id number] DISSOLVE 1 Univers ine light 8-04 SCOOPFUL ity of (CHOLESTYRA 00:00: IN FLUID [place] MINE LIGHT) 00 FOUR TIMES Me dical 4 gram DAILY. Branch powder cholestyram Yes [id number] DISSOLVE 1 Univers ine light 8-04 SCOOPFUL ity of (CHOLESTYRA 00:00: IN FLUID [place] MINE LIGHT) 00 FOUR TIMES Me dical 4 gram DAILY. Branch powder cholestyram Yes [id number] DISSOLVE 1 Univers ine light 8-04 SCOOPFUL ity of (CHOLESTYRA 00:00: IN FLUID [place] MINE LIGHT) 00 FOUR TIMES Me dical 4 gram DAILY. Branch powder cholestyram 2019- No [id number] 1 scoop 4 Univers ine light 4 8-01 08-01 times a ity of gram powder 00:00: 00:00 day. [place] 00 :00 Medical Branch cholestyram 2019- No [id number] 1 scoop 4 Univers ine light 4 8- 08-01 times a ity of gram powder 00:00: 00:00 day. [place] 00 :00 Medical Branch antiox.mv Yes Take by Univ ers no.10/omeg3 7- mouth. ity of s/lut/ifeanyi 15:09: [place] (I-CAPS 27 Medical ORAL) Branch MULTIVITAMI Yes Take by Un kathie N ORAL - mouth. ity of 15:09: Takes [place] 27 Prevagen. Medical Branch antiox.mv Yes Take by Univ ers no.10/omeg3 - mouth. ity of s/lut/ifeanyi 15:09: [place] (I-CAPS 27 Medical ORAL) Branch MULTIVITAMI Yes Take by Un kathie N ORAL 7-29 mouth. ity of 15:09: Takes [place] [address] Prevagen. Medical Branch antiox.mv Yes Take by Univ ers no.10/omeg3 7-29 mouth. ity of s/lut/ifeanyi 15:09: [place] (ICAPS 27 Medical ORAL) Branch MULTIVITAMI Yes Take by Un kathie N ORAL 7-29 mouth. ity of 15:09: Takes [place] [address] Prevagen. Medical Branch antiox.mv Yes Take by Univ ers no.10/omeg3 7-29 mouth. ity of s/lut/ifeanyi 15:09: [place] (ICAPS 27 Medical ORAL) Branch MULTIVITAMI Yes Take by Un kathie N ORAL 7-29 mouth. ity of 15:09: Takes [place] [address] Prevagen. Medical Branch antiox.mv Yes Take by Univ ers no.10/omeg3 7-29 mouth. ity of s/lut/ifeanyi 15:09: [place] (ICAPS 27 Medical ORAL) Branch MULTIVITAMI Yes Take by Un kathie N ORAL 7-29 mouth. ity of 15:09: Takes [place] [address] Prevagen. Medical Branch antiox.mv Yes Take by Univ ers no.10/omeg3 7-29 mouth. ity of s/lut/ifeanyi 15:09: [place] (ICAPS 27 Medical ORAL) Branch MULTIVITAMI Yes Take by Un kathie N ORAL 7-29 mouth. ity of 15:09: Takes [place] [address] Prevagen. Medical Branch antiox.mv Yes Take by Univ ers no.10/omeg3 7-29 mouth. ity of s/lut/ifeanyi 15:09: [place] (I-CAPS 27 Medical ORAL) Branch MULTIVITAMI Yes Take by Un kathie N ORAL 7-29 mouth. ity of 15:09: Takes [place] [address] Prevagen. Medical Branch antiox.mv Yes Take by Univ ers no.10/omeg3 7-29 mouth. ity of s/lut/ifeanyi 15:09: [place] (I-CAPS 27 Medical ORAL) Branch MULTIVITAMI Yes Take by Un kathie N ORAL 7-29 mouth. ity of 15:09: Takes [place] [address] Prevagen. Medical Branch antiox.mv Yes Take by Univ ers no.10/omeg3 7-29 mouth. ity of s/lut/ifeanyi 15:09: [place] (I-CAPS 27 Medical ORAL) Branch MULTIVITAMI Yes Take by Un kathie N ORAL 7-29 mouth. ity of 15:09: Takes [place] [address] Prevagen. Medical Branch antiox.mv Yes Take by Univ ers no.10/omeg3 7-29 mouth. ity of s/lut/ifeanyi 15:09: [place] (I-CAPS 27 Medical ORAL) Branch MULTIVITAMI Yes Take by Un kathie N ORAL 7-29 mouth. ity of 15:09: Takes [place] [address] Prevagen. Medical Branch antiox.mv Yes Take by Univ ers no.10/omeg3 7-29 mouth. ity of s/lut/ifeanyi 15:09: [place] (I-CAPS 27 Medical ORAL) Branch MULTIVITAMI Yes Take by Un kathie N ORAL 7-29 mouth. ity of 15:09: Takes [place] [address] Prevagen. Medical Branch antiox.mv Yes Take by Univ ers no.10/omeg3 7-29 mouth. ity of s/lut/ifeanyi 15:09: [place] (I-CAPS 27 Medical ORAL) Branch MULTIVITAMI Yes Take by Un kathie N ORAL 7-29 mouth. ity of 15:09: Takes [place] [address] Prevagen. Medical Branch antiox.mv Yes Take by Univ ers no.10/omeg3 7-29 mouth. ity of s/lut/ifeanyi 15:09: [place] (I-CAPS 27 Medical ORAL) Branch MULTIVITAMI Yes Take by Un kathie N ORAL 7-29 mouth. ity of 15:09: Takes [place] [address] Prevagen. Medical Branch antiox.mv Yes Take by Univ ers no.10/omeg3 7-29 mouth. ity of s/lut/ifeanyi 15:09: [place] (I-CAPS 27 Medical ORAL) Branch MULTIVITAMI Yes Take by Un kathie N ORAL 7-29 mouth. ity of 15:09: Takes [place] 27 Prevagen. Medical Branch antiox.mv Yes Take by Univ ers no.10/omeg3 7-29 mouth. ity of s/lut/ifeanyi 15:09: [place] (I-CAPS 27 Medical ORAL) Branch MULTIVITAMI Yes Take by Un kathie N ORAL 7-29 mouth. ity of 15:09: Takes [place] 27 Prevagen. Medical Branch antiox.mv Yes Take by Univ ers no.10/omeg3 7-29 mouth. ity of s/lut/ifeanyi 15:09: [place] (I-CAPS 27 Medical ORAL) Branch antiox.mv Yes Take by Univ ers no.10/omeg3 7-29 mouth. ity of s/lut/ifeanyi 15:09: [place] (I-CAPS 27 Medical ORAL) Branch MULTIVITAMI Yes Take by Un kathie N ORAL 7-29 mouth. ity of 15:09: Takes [place] 27 Prevagen. Medical Branch MULTIVITAMI Yes Take by Un kathie N ORAL 7-29 mouth. ity of 15:09: Takes [place] 27 Prevagen. Medical Branch antiox.mv Yes Take by Univ ers no.10/omeg3 729 mouth. ity of s/lut/ifeanyi 15:09: [place] (I-CAPS 27 Medical ORAL) Branch MULTIVITAMI Yes Take by Un kathie N ORAL 7-29 mouth. ity of 15:09: Takes [place] 27 Prevagen. Medical Branch antiox.mv Yes Take by Univ ers no.10/omeg3 7-29 mouth. ity of s/lut/ifeanyi 15:09: [place] (I-CAPS 27 Medical ORAL) Branch MULTIVITAMI Yes Take by Un kathie N ORAL 7-29 mouth. ity of 15:09: Takes [place] 27 Prevagen. Medical Branch antiox.mv Yes Take by Univ ers no.10/omeg3 7-29 mouth. ity of s/lut/ifeanyi 15:09: [place] (I-CAPS 27 Medical ORAL) Branch MULTIVITAMI Yes Take by Un kathie N ORAL 7-29 mouth. ity of 15:09: Takes [place] [address] Prevagen. Medical Branch antiox.mv Yes Take by Univ ers no.10/omeg3 7-29 mouth. ity of s/lut/ifeanyi 15:09: [place] (I-CAPS 27 Medical ORAL) Branch MULTIVITAMI Yes Take by Un kathie N ORAL 7-29 mouth. ity of 15:09: [place] [address] Prevagen. Medical Branch antiox.mv Yes Take by Univ ers no.10/omeg3 7-29 mouth. ity of s/lut/ifeanyi 15:09: [place] (I-CAPS 27 Medical ORAL) Branch MULTIVITAMI Yes Take by Un kathie N ORAL 7-29 mouth. ity of 15:09: Takes [place] 27 [facility]. Medical Branch antiox.mv Yes Take by Univ ers no.10/omeg3 7-29 mouth. ity of s/lut/ifeanyi 15:09: [place] (ICAPS 27 Medical ORAL) Branch MULTIVITAMI Yes Take by Un kathie N ORAL 7-29 mouth. ity of 15:09: [place] [address] Prevagen. Medical Branch antiox.mv Yes Take by Univ ers no.10/omeg3 7-29 mouth. ity of s/lut/ifeanyi 15:09: [place] (I-CAPS 27 Medical ORAL) Branch MULTIVITAMI Yes Take by Un kathie N ORAL 7-29 mouth. ity of 15:09: [place] [address] Prevagen. Medical Branch antiox.mv Yes Take by Univ ers no.10/omeg3 7-29 mouth. ity of s/lut/ifeanyi 15:09: [place] (I-CAPS 27 Medical ORAL) Branch MULTIVITAMI Yes Take by Un kathie N ORAL 7-29 mouth. ity of 15:09: Takes [place] 27 Prevagen. Medical Branch antiox.mv Yes Take by Univ ers no.10/omeg3 7-29 mouth. ity of s/lut/ifeanyi 15:09: [place] (I-CAPS 27 Medical ORAL) Branch MULTIVITAMI Yes Take by Un kathie N ORAL 7-29 mouth. ity of 15:09: Takes [place] 27 Prevagen. Medical Branch antiox.mv Yes Take by [facility] ers no.10/omeg3 7-29 mouth. ity of s/lut/ifeanyi 15:09: [place] (I-CAPS 27 Medical ORAL) [place] MULTIVITAMI Yes Take by Un kathie N ORAL 7-29 mouth. ity of 15:09: [place] [address] Prevagen. [facility] Branch multivitami Yes 1{tbl} Take 1 Un kathie n tablet 7-29 tablet by ity of 14:26: mouth. [address] multivitami Yes 1{tbl} Take 1 Un kathie n tablet 7-29 tablet by ity of 14:26: mouth. [address] multivitami Yes 1{tbl} Take 1 Un kathie n tablet 7-29 tablet by ity of 14:26: mouth. [address] multivitami Yes 1{tbl} Take 1 Un kathie n tablet 7-29 tablet by ity of 14:26: mouth. [address] multivitami Yes 1{tbl} Take 1 Un kathie n tablet 7-29 tablet by ity of 14:26: mouth. [address] multivitami Yes 1{tbl} Take 1 Un kathie n tablet 7-29 tablet by ity of 14:26: mouth. [address] multivitami Yes 1{tbl} Take 1 Un kathie n tablet 7-29 tablet by ity of 14:26: mouth. [address] multivitami Yes 1{tbl} Take 1 Un kathie n tablet 7-29 tablet by ity of 14:26: mouth. [address] multivitami Yes 1{tbl} Take 1 Un kathie n tablet 7-29 tablet by ity of 14:26: mouth. [address] multivitami Yes 1{tbl} Take 1 Un kathie n tablet 7-29 tablet by ity of 14:26: mouth. [address] multivitami Yes 1{tbl} Take 1 Un kathie n tablet 7-29 tablet by ity of 14:26: mouth. [address] multivitami Yes 1{tbl} Take 1 Un kathie n tablet 7-29 tablet by ity of 14:26: mouth. [address] multivitami Yes 1{tbl} Take 1 Un kathie n tablet 7-29 tablet by ity of 14:26: mouth. [address] multivitami Yes 1{tbl} Take 1 Un kathie n tablet 7-29 tablet by ity of 14:26: mouth. [address] multivitami Yes 1{tbl} Take 1 Un kathie n tablet 7-29 tablet by ity of 14:26: mouth. [address] multivitami Yes 1{tbl} Take 1 Un kathie n tablet 7-29 tablet by ity of 14:26: mouth. [address] multivitami Yes 1{tbl} Take 1 Un kathie n tablet 7-29 tablet by ity of 14:26: mouth. [address] [facility] 1{tbl} Take 1 Un kathie n tablet 7-29 tablet by ity of 14:26: mouth. [address] multivitami Yes 1{tbl} Take 1 Un kathie n tablet 7-29 tablet by ity of 14:26: mouth. [address] multivitami Yes 1{tbl} Take 1 Un kathie n tablet 7-29 tablet by ity of 14:26: mouth. [address] multivitami Yes 1{tbl} Take 1 Un kathie n tablet 7-29 tablet by ity of 14:26: mouth. [address] multivitami Yes 1{tbl} Take 1 Un kathie n tablet 7-29 tablet by ity of 14:26: mouth. [address] multivitami Yes 1{tbl} Take 1 Un kathie n tablet 7-29 tablet by ity of 14:26: mouth. [address] multivitami Yes 1{tbl} Take 1 Un kathie n tablet 7-29 tablet by ity of 14:26: mouth. [address] multivitami Yes 1{tbl} Take 1 Un kathie n tablet 7-29 tablet by ity of 14:26: mouth. [place] 44 Medical Branch multivitami Yes 1{tbl} Take 1 Un kathie n tablet 7-29 tablet by ity of 14:26: mouth. [place] [address] Medical Branch multivitami 0 Yes 1{tbl} Take 1 Un kathie n tablet 7-29 tablet by ity of 14:26: mouth. [place] [address] Medical Branch VENLAFAXINE Yes Take by Un kathie HCL 7-29 mouth. ity of (EFFEXOR 14:26: [place] ORAL) 03 Medical Branch VENLAFAXINE 2018- Yes Take by Un kathie HCL 7-29 mouth. ity of (EFFEXOR 14:26: [place] ORAL) 03 Medical Branch VENLAFAXINE Yes Take by Un kathie HCL 7-29 mouth. ity of (EFFEXOR 14:26: [place] ORAL) 03 Medical Branch VENLAFAXINE Yes Take by Un kathie HCL 7-29 mouth. ity of (EFFEXOR 14:26: [place] ORAL) 03 Medical Branch VENLAFAXINE Yes Take by Un kathie HCL 7-29 mouth. ity of (EFFEXOR 14:26: [place] ORAL) 03 Medical Branch VENLAFAXINE Yes Take by Un kathie HCL 7-29 mouth. ity of (EFFEXOR 14:26: [place] ORAL) 03 Medical Branch VENLAFAXINE 2018- Yes Take by Un kathie HCL 7-29 mouth. ity of (EFFEXOR 14:26: [place] ORAL) 03 Medical Branch VENLAFAXINE Yes Take by Un kathie HCL 7-29 mouth. ity of (EFFEXOR 14:26: [place] ORAL) 03 Medical Branch VENLAFAXINE 2018- Yes Take by Un kathie HCL 7-29 mouth. ity of (EFFEXOR 14:26: [place] ORAL) 03 Medical Branch VENLAFAXINE 2018- Yes Take by Un kathie HCL 7-29 mouth. ity of (EFFEXOR 14:26: [place] ORAL) 03 Medical Branch VENLAFAXINE 2018-0 Yes Take by Un kathie HCL 7-29 mouth. ity of (EFFEXOR 14:26: [place] ORAL) 03 Medical Branch VENLAFAXINE 2018- Yes Take by Un kathie HCL 7-29 mouth. ity of (EFFEXOR 14:26: [place] ORAL) 03 Medical Branch VENLAFAXINE Yes Take by Un kathie HCL 7-29 mouth. ity of (EFFEXOR 14:26: [place] ORAL) 03 Medical Branch VENLAFAXINE 2018-0 Yes Take by Un kathie HCL 7-29 mouth. ity of (EFFEXOR 14:26: [place] ORAL) 03 Medical Branch VENLAFAXINE Yes Take by Un kathie HCL 7-29 mouth. ity of (EFFEXOR 14:26: [place] ORAL) 03 Medical Branch VENLAFAXINE 0 Yes Take by Un kathie HCL 7-29 mouth. ity of (EFFEXOR 14:26: [place] ORAL) 03 Medical Branch VENLAFAXINE Yes Take by Un kathie HCL 7-29 mouth. ity of (EFFEXOR 14:26: [place] ORAL) 03 Medical Branch VENLAFAXINE Yes Take by Un kathie HCL 7-29 mouth. ity of (EFFEXOR 14:26: [place] ORAL) 03 Medical Branch VENLAFAXINE Yes Take by Un kathie HCL 7-29 mouth. ity of (EFFEXOR 14:26: [place] ORAL) 03 Medical Branch VENLAFAXINE Yes Take by Un kathie HCL 7-29 mouth. ity of (EFFEXOR 14:26: [place] ORAL) 03 Medical Branch VENLAFAXINE 2018- Yes Take by Un kathie HCL 7-29 mouth. ity of (EFFEXOR 14:26: [place] ORAL) 03 Medical Branch VENLAFAXINE Yes Take by Un kathie HCL 7-29 mouth. ity of (EFFEXOR 14:26: [place] ORAL) 03 Medical Branch VENLAFAXINE Yes Take by Un kathie HCL 7-29 mouth. ity of (EFFEXOR 14:26: [place] ORAL) 03 Medical Branch VENLAFAXINE 2018-0 Yes Take by Un kathie HCL 7-29 mouth. ity of (EFFEXOR 14:26: [place] ORAL) 03 Medical Branch VENLAFAXINE 2018-0 Yes Take by Un kathie HCL 7-29 mouth. ity of (EFFEXOR 14:26: [place] ORAL) 03 Medical Branch VENLAFAXINE 2018-0 Yes Take by Un kathie HCL 7-29 mouth. ity of (EFFEXOR 14:26: [place] ORAL) Medical Branch VENLAFAXINE Yes Take by Un kathie HCL 7-29 mouth. ity of (EFFEXOR 14:26: [place] ORAL) Medical Branch methylPREDN Yes [id number] 84mg Take 21 Univers ISolone 3-21 9103 tablets by ity of (MEDROL, 00:00: mouth [place] EVANGELINA,) 4 mg 00 SEE-INSTRU Med ical tablets CTIONS. Branch follow package directions methylPREDN 2018- No [id number] 84mg Take 21 Univers ISolone 3-21 -29 9103 tablets by ity o f (MEDROL, 00:00: 00:00 mouth [place] EVANGELINA,) 4 mg 00 :00 SEE-INSTRU Med ical tablets CTIONS. Branch follow package directions methylPREDN 2018- No [id number] 84mg Take 21 Univers ISolone 3-21 - 9103 tablets by ity o f (MEDROL, 00:00: 00:00 mouth [place] EVANGELINA,) 4 mg 00 :00 SEE-INSTRU Med ical tablets CTIONS. Branch follow package directions traMADOL 50 2017-02 Yes 50mg Take 1 Univ ers mg tablet 2-12 tablet by ity o f 00:00: mouth [place] 00 every 6 Medical (six) Branch hours as needed for Pain (scale 4-6). traMADOL 50 2017-02- No 50mg Take 1 Uni vers mg tablet 2-01 12- tablet by ity of 00:00: 00:00 mouth [place] 00 :00 every 6 Medical (six) Branch hours as needed for Pain (scale 4-6). traMADOL 50 2017-02- No 50mg Take 1 Uni vers mg tablet 2-01 12- tablet by ity of 00:00: 00:00 mouth [place] 00 :00 every 6 Medical (six) Branch hours as needed for Pain (scale 4-6). diazePAM 5 2017-02 Yes Univers mg tablet 0-20 ity of 00:00: [place] 00 Medical Branch Oxycodone 2017-02 Yes Univers 10 mg Tab 0-20 ity of 00:00: [place] 00 Medical Branch diazePAM 5 2017-02 Yes Univers mg tablet 0-20 ity of 00:00: [place] 00 Medical Branch Oxycodone 2017-02 Yes Univers 10 mg Tab 0-20 ity of 00:00: [place] [facility] diazePAM 5 2017-02 Yes Univers mg tablet 0-20 ity of 00:00: [place] [facility] Oxycodone 2017-02 Yes Univers 10 mg Tab 0-20 ity of 00:00: [place] [facility] diazePAM 5 2017-02 Yes Univers mg tablet 0-20 ity of 00:00: [place] [facility] Oxycodone 2017-02 Yes Univers 10 mg Tab 0-20 ity of 00:00: [place] [facility] diazePAM 5 2017-02 Yes Univers mg tablet 0-20 ity of 00:00: [place] [facility] Oxycodone 2017-02 Yes Univers 10 mg Tab 0-20 ity of 00:00: [place] [address] Medical Branch diazePAM 5 2017-02 Yes Univers mg tablet 0-20 ity of 00:00: [place] [facility] Oxycodone 2017-02 Yes Univers 10 mg Tab 0-20 ity of 00:00: [place] [address] Medical Branch diazePAM 5 2017-02 Yes Univers mg tablet 0-20 ity of 00:00: [place] [facility] Oxycodone 2017-02 Yes Univers 10 mg Tab 0-20 ity of 00:00: [place] [address] Medical Branch diazePAM 5 2017-02 Yes Univers mg tablet 0-20 ity of 00:00: [place] [facility] Oxycodone 2017-02 Yes Univers 10 mg Tab 0-20 ity of 00:00: [place] [facility] diazePAM 5 2017-02 Yes Univers mg tablet 0-20 ity of 00:00: [place] [facility] Oxycodone 2017-02 Yes Univers 10 mg Tab 0-20 ity of 00:00: [place] [facility] diazePAM 5 2017-02 Yes Univers mg tablet 0-20 ity of 00:00: [place] [facility] Oxycodone 2017-02 Yes Univers 10 mg Tab 0-20 ity of 00:00: [place] [address] Medical Branch diazePAM 5 2017-02 Yes Univers mg tablet 0-20 ity of 00:00: [place] [facility] Oxycodone 2017-02 Yes Univers 10 mg Tab 0-20 ity of 00:00: [place] [address] Medical Branch diazePAM 5 2017-02 Yes Univers mg tablet 0-20 ity of 00:00: [place] [facility] Oxycodone 2017-02 Yes Univers 10 mg Tab 0-20 ity of 00:00: [place] [address] Medical Branch diazePAM 5 2017- Yes Univers mg tablet 0-20 ity of 00:00: [place] [facility] Oxycodone 2018- Yes Univers 10 mg Tab 0-20 ity of 00:00: [place] [facility] diazePAM 5 2017- Yes Univers mg tablet 0-20 ity of 00:00: [place] [facility] Oxycodone 2017-02 Yes Univers 10 mg Tab 0-20 ity of 00:00: [place] [facility] diazePAM 5 2017- Yes Univers mg tablet 0-20 ity of 00:00: [place] [facility] Oxycodone 2017-02 Yes Univers 10 mg Tab 0-20 ity of 00:00: [place] [address] Medical Branch diazePAM 5 2017-02 Yes Univers mg tablet 0-20 ity of 00:00: [place] [facility] Oxycodone 2017-02 Yes Univers 10 mg Tab 0-20 ity of 00:00: [place] [address] Medical Branch diazePAM 5 2017- Yes Univers mg tablet 0-20 ity of 00:00: [place] [facility] Oxycodone 2018 Yes Univers 10 mg Tab 0-20 ity of 00:00: [place] [facility] diazePAM 5 2017-02 Yes Univers mg tablet 0-20 ity of 00:00: [place] [facility] Oxycodone 2018 Yes Univers 10 mg Tab 0-20 ity of 00:00: [place] [address] Medical Branch rOPINIRole 2017- Yes TK 1 T PO Un kathie 0.5 mg 1-21 QHS ity of tablet 00:00: [place] [address] Medical Branch rOPINIRole 2017- Yes TK 1 T PO Un kathie 0.5 mg 1-21 QHS ity of tablet 00:00: [place] [address] Medical Branch rOPINIRole 2017- Yes TK 1 T PO Un akthie 0.5 mg 1-21 QHS ity of tablet 00:00: [place] [address] Medical Branch rOPINIRole 2017- Yes TK 1 T PO Un kathie 0.5 mg 1-21 QHS ity of tablet 00:00: [address] Branch rOPINIRole 2017- Yes TK 1 T PO Un kathie 0.5 mg 1-21 QHS ity of tablet 00:00: [address] Branch rOPINIRole 2017- Yes TK 1 T PO Un kathie 0.5 mg 1-21 QHS ity of tablet 00:00: [place] [facility] rOPINIRole 2017 Yes TK 1 T PO Un kathie 0.5 mg 1-21 QHS ity of tablet 00:00: [place] [facility] Branch rOPINIRole 2017 Yes TK 1 T PO Un kathie 0.5 mg 1-21 QHS ity of tablet 00:00: [place] [facility] rOPINIRole 2017- Yes TK 1 T PO Un kathie 0.5 mg 1-21 QHS ity of tablet 00:00: [place] [facility] Branch rOPINIRole 2017 Yes TK 1 T PO Un kathie 0.5 mg 1-21 QHS ity of tablet 00:00: [place] [facility] rOPINIRole 2017 Yes TK 1 T PO Un kathie 0.5 mg 1-21 QHS ity of tablet 00:00: [place] [facility] rOPINIRole 2017 Yes TK 1 T PO Un kathie 0.5 mg 1-21 QHS ity of tablet 00:00: [place] [facility] Branch rOPINIRole 2017- Yes TK 1 T PO Un kathie 0.5 mg 1-21 QHS ity of tablet 00:00: [place] [facility] rOPINIRole 2017 Yes TK 1 T PO Un kathie 0.5 mg 1-21 QHS ity of tablet 00:00: [place] [facility] Branch rOPINIRole 2017- Yes TK 1 T PO Un kathie 0.5 mg 1-21 QHS ity of tablet 00:00: [place] [facility] Branch rOPINIRole 2017- Yes TK 1 T PO Un kathie 0.5 mg 1-21 QHS ity of tablet 00:00: [place] [facility] Branch rOPINIRole 2017- Yes TK 1 T PO Un kathie 0.5 mg 1-21 QHS ity of tablet 00:00: [place] [facility] Branch rOPINIRole 2017- Yes TK 1 T PO Un kathie 0.5 mg 1-21 QHS ity of tablet 00:00: [place] 00 [facility] VENLAFAXINE 2015-02 Yes Take by Un kathie HCL 1-29 mouth. ity of (EFFEXOR 15:47: [place] ORAL) 12 [facility] methylPREDN 2015-02 Yes 84mg Take 21 Uni vers ISolone 1-29 tablets by ity of (MEDROL, 00:00: mouth [place] EVANGELINA,) 4 mg 00 SEE-INSTRU Med ical tablets CTIONS. Branch follow package directions methylPREDN 2015-02 2019- No 84mg Take 21 Un kathie ISolone - 07-29 tablets by ity o f (MEDROL, 00:00: 00:00 mouth [place] EVANGELINA,) 4 mg 00 :00 SEE-INSTRU Med ical tablets CTIONS. Branch follow package directions methylPREDN 2015-02- No 84mg Take 21 Un kathie ISolone - 07-29 tablets by ity o f (MEDROL, 00:00: 00:00 mouth [place] EVANGELINA,) 4 mg 00 :00 SEE-INSTRU Med ical tablets CTIONS. Branch follow package directions cyclobenzap 2015-02 Yes 10mg Take 1 Univ ers rine 1-11 tablet by ity of (FLEXERIL) 00:00: [place] 00 (three) Medical tablet times Branch daily as needed for Muscle Spasms. cyclobenzap 2015-02- No 10mg Take 1 Uni vers rine -12 13- tablet by ity of (FLEXERIL) 00:00: 00:00 mouth 3 [place] 10 mg 00 :00 (three) Medical tablet times Branch daily as needed for Muscle Spasms. cyclobenzap 2015-02- No 10mg Take 1 Uni vers rine 1-12 13- tablet by ity of (FLEXERIL) 00:00: 00:00 mouth 3 [place] 10 mg 00 :00 (three) Medical tablet times Branch daily as needed for Muscle Spasms. pramipexole 2015-02 Yes TK 2 TS PO Univers (MIRAPEX) 1 0-03 QHS ity of mg tablet 00:00: [place] [facility] pramipexole 2015-02 Yes TK 2 TS PO Univers (MIRAPEX) 1 0-03 QHS ity of mg tablet 00:00: [facility] pramipexole 2015-02 Yes TK 2 TS PO Univers (MIRAPEX) 1 0-03 QHS ity of mg tablet 00:00: [facility] pramipexole 2015-02 Yes TK 2 TS PO Univers (MIRAPEX) 1 0-03 QHS ity of mg tablet 00:00: [facility] pramipexole 2015-02 Yes TK 2 TS PO Univers (MIRAPEX) 1 0-03 QHS ity of mg tablet 00:00: [place] 00 [facility] Branch pramipexole 2016- Yes TK 2 TS PO Univers (MIRAPEX) 1 0-03 QHS ity of mg tablet 00:00: [place] 00 [facility] Branch pramipexole 2016- Yes TK 2 TS PO Univers (MIRAPEX) 1 0-03 QHS ity of mg tablet 00:00: [place] [facility] Branch pramipexole 2016- Yes TK 2 TS PO Univers (MIRAPEX) 1 0-03 QHS ity of mg tablet 00:00: [place] [facility] Branch pramipexole 2016- Yes TK 2 TS PO Univers (MIRAPEX) 1 0-03 QHS ity of mg tablet 00:00: [place] [facility] pramipexole 2016- Yes TK 2 TS PO Univers (MIRAPEX) 1 0-03 QHS ity of mg tablet 00:00: [place] [facility] pramipexole 2016- Yes TK 2 TS PO Univers (MIRAPEX) 1 0-03 QHS ity of mg tablet 00:00: [place] [facility] Branch pramipexole 2016- Yes TK 2 TS PO Univers (MIRAPEX) 1 0-03 QHS ity of mg tablet 00:00: [place] [facility] Branch pramipexole 2016- Yes TK 2 TS PO Univers (MIRAPEX) 1 0-03 QHS ity of mg tablet 00:00: [place] [facility] Branch pramipexole 2016- Yes TK 2 TS PO Univers (MIRAPEX) 1 0-03 QHS ity of mg tablet 00:00: [place] 00 [facility] Branch pramipexole 2016- Yes TK 2 TS PO Univers (MIRAPEX) 1 0-03 QHS ity of mg tablet 00:00: [place] 00 [facility] Branch pramipexole 2016- Yes TK 2 TS PO Univers (MIRAPEX) 1 0-03 QHS ity of mg tablet 00:00: [place] [facility] Branch pramipexole 2016- Yes TK 2 TS PO Univers (MIRAPEX) 1 0-03 QHS ity of mg tablet 00:00: [address] pramipexole 2016- Yes TK 2 TS PO Univers (MIRAPEX) 1 0-03 QHS ity of mg tablet 00:00: [address] Branch pramipexole 2016- Yes TK 2 TS PO Univers (MIRAPEX) 1 0-03 QHS ity of mg tablet 00:00: [address] Branch pramipexole 2016- Yes TK 2 TS PO Univers (MIRAPEX) 1 0-03 QHS ity of mg tablet 00:00: [address] pramipexole 2016- Yes TK 2 TS PO Univers (MIRAPEX) 1 0-03 QHS ity of mg tablet 00:00: [address] pramipexole 2016 Yes TK 2 TS PO Univers (MIRAPEX) 1 0-03 QHS ity of mg tablet 00:00: [address] pramipexole 2016 Yes TK 2 TS PO Univers (MIRAPEX) 1 0-03 QHS ity of mg tablet 00:00: [address] pramipexole 2016- Yes TK 2 TS PO Univers (MIRAPEX) 1 0-03 QHS ity of mg tablet 00:00: [address] pramipexole 2016- Yes TK 2 TS PO Univers (MIRAPEX) 1 0-03 QHS ity of mg tablet 00:00: [address] Branch pramipexole 2016- Yes TK 2 TS PO Univers (MIRAPEX) 1 0-03 QHS ity of mg tablet 00:00: [address] Branch pramipexole 2016- Yes TK 2 TS PO Univers (MIRAPEX) 1 0-03 QHS ity of mg tablet 00:00: [address] Branch pramipexole 2016 Yes TK 2 TS PO Univers (MIRAPEX) 1 0-03 QHS ity of mg tablet 00:00: [address] MOBIC 15 MG 2015-0 Yes 1 tab po Me moria TABS 5-27 qd l 00:00: 00 CYCLOBENZAP 2014-0 Yes 1 tab po q Memoria RINE HCL 5 5-27 8 hrs prn l MG TABS 00:00: muscle [place] 00 spasms MIRAPEX 1 2013-02 Yes daily Memoria MG TABS 2-05 l 00:00: 00 EFFEXOR XR 2014-1 Yes Memoria [id number] 2-05 l 00:00: CELEBREX 2014-1 No 1 cap po Memor ia 100 MG CAPS 2-05 bid l 00:00: 00 Vital Signs Vital Name Observation Time Observation Value Comments Source Systolic blood 2019-11-13 20:38:00 134 mm[Hg] Univer sity of pressure [facility] Branch Diastolic blood 2019-11-13 20:38:00 69 mm[Hg] Unive rsity of pressure [facility] Branch Heart rate 2019-11-13 20:38:00 63 /min Universi ty of [facility] Body height 2019-11-13 20:38:00 172.7 cm Universi ty of [facility] Body weight 2019-11-13 20:38:00 80.287 kg Universi ty of [facility] BMI 2019-11-13 20:38:00 26.91 kg/m2 Universi ty of [facility] Systolic blood 2019-11-13 20:38:00 134 mm[Hg] Univer sity of pressure [facility] Branch Diastolic blood 2019-11-13 20:38:00 69 mm[Hg] Unive rsity of pressure [facility] Branch Heart rate 2019-11-13 20:38:00 63 /min Universi ty of [facility] Body height 2019-11-13 20:38:00 172.7 cm Universi ty of [facility] Body weight 2019-11-13 20:38:00 80.287 kg Universi ty of [facility] BMI 2019-11-13 20:38:00 26.91 kg/m2 Universi ty of [facility] Systolic blood 2019-07-18 13:04:00 133 mm[Hg] Univer sity of pressure [facility] Branch Diastolic blood 2019-07-18 13:04:00 69 mm[Hg] Unive rsity of pressure [facility] Branch Heart rate 2019-07-18 13:04:00 73 /min Universi ty of [facility] Respiratory rate 2019-07-18 13:04:00 18 /min Univ ersity of [facility] Body height 2019-07-18 13:04:00 172.7 cm Universi ty of [facility] Body weight 2019-07-18 13:04:00 79.379 kg Universi ty of [facility] BMI 2019-07-18 13:04:00 26.61 kg/m2 Universi ty of [place] [facility] Systolic blood 2019-04-03 20:59:00 160 mm[Hg] Univer sity of pressure [place] [facility] Diastolic blood 2019-04-03 20:59:00 73 mm[Hg] Unive rsity of pressure [place] [facility] Heart rate 2019-04-03 20:59:00 74 /min Universi ty of [place] [facility] Respiratory rate 2019-04-03 20:59:00 20 /min Univ ersity of [place] [facility] Body height 2019-04-03 20:59:00 172.7 cm Universi ty of [place] [facility] Body weight 2019-04-03 20:59:00 79.379 kg Universi ty of [place] [facility] BMI 2019-04-03 20:59:00 26.61 kg/m2 Universi ty [facility] [place] [facility] Systolic blood 2018-10-26 14:49:00 119 mm[Hg] Univer sity of pressure [place] [facility] Diastolic blood 2018-10-26 14:49:00 69 mm[Hg] Unive rsity of pressure [place] [facility] Heart rate 2018-10-26 14:49:00 70 /min Universi ty of [place] [facility] Body height 2018-10-26 14:49:00 172.7 cm Universi ty of [place] [facility] Body weight 2018-10-26 14:49:00 79.379 kg Universi ty [facility] [place] [facility] BMI 2018-10-26 14:49:00 26.61 kg/m2 [facility] [place] [facility] Systolic blood 2018-09-03 14:23:00 127 mm[Hg] Univer sity of pressure [place] [facility] Diastolic blood 2018-09-03 14:23:00 80 mm[Hg] Unive rsity of pressure [place] [facility] Heart rate 2018-09-03 14:23:00 74 /min [facility]i ty [facility] [place] [facility] Body temperature 2018-09-03 14:23:00 36.17 Adela Univ ersity of [place] [facility] Respiratory rate 2018-09-03 14:23:00 16 /min Univ ersity of [place] [facility] Body height 2018-09-03 14:23:00 172.7 cm [facility]i ty [facility] [place] [facility] Body weight 2018-09-03 14:23:00 79.198 kg [facility]i ty [facility] [place] [facility] BMI 2018-09-03 14:23:00 26.55 kg/m2 [facility] [place] [facility] [place] Oxygen saturation in 2018-09-03 14:23:00 100 /min University Arterial blood by [facility] Pulse oximetry Branch Weight 2014-07-02 16:18:31 [facility] Height 2014-07-02 16:18:31 [facility] Temperature Oral (F) 2014-07-02 16:18:31 98.4 F [facility] Heart Rate 2014-07-02 16:18:31 [facility] Systolic (mm Hg) 2014-07-02 16:18:31 Shahram [facility] [place] Diastolic (mm Hg) 2014-07-02 16:18:31 Mem orial [place] Respitory Rate 2014-07-02 16:18:31 Jeb acevedo [place] Weight 2014-01-10 16:45:51 [facility] Height 2014-01-10 16:45:51 [facility] Temperature Oral (F) 2014-01-10 16:45:51 98.1 F [facility] Heart Rate 2014-01-10 16:45:51 [facility] [place] Systolic (mm Hg) 2014-01-10 16:45:51 Shahram rial [place] Diastolic (mm Hg) 2014-01-10 16:45:51 Mem orial [place] Respitory Rate 2014-01-10 16:45:51 Jeb Suhann Procedures Procedure Date / Time Performing Clinician Source Performed ASSIGNMENT OF BENEFITS 2019-11-13 20:24:44 Doctor Unassigned, No [facility] MR KNEE LEFT WO 2019-05-01 21:25:30 Mary Da Silva [facility] o f [place] CONTRAST Medical Branch XR HIPS 2 VW LEFT 2018-10-26 14:56:20 Hesham Farrar [facility] CT ABDOMEN PELVIS W 2018-09-10 15:37:24 Alexus Smith [facility] CONTRAST A Medical Branch CONSENT/REFUSAL FOR 2018-09-10 14:07:24 Doctor Unassigned, No [facility] DIAGNOSIS AND TREATMENT Name Medical Branch ASSIGNMENT OF BENEFITS 2018-09-10 14:07:12 Doctor Unassigned, No [facility] VITAMIN B12, LEVEL 2018-09-03 16:08:00 Alexus Smith [facility] A Medical Branch FOLATE 2018-09-03 16:08:00 Alexus Smith [facility] Medical [facility] FREE T4 2018-09-03 16:08:00 Alexus Smith [facility] Medical [place] THYROID STIMULATING 2018-09-03 16:08:00 Alexus Smith [facility] HORMONE Medical [place] BASIC METABOLIC PANEL 2018-09-03 16:08:00 Alexus Smith [facility] (NA, K, CL, CO2, Medical [place] GLUCOSE, BUN, CREATININE, CA) GLYCOSYLATED HEMOGLOBIN 2018-09-03 16:08:[address] [facility] (A1C) [facility] VITAMIN D, 25-OH 2018-09-03 16:08:00 Alexus Smith [facility] Medical [place] FREE T3 2018-09-03 16:08:00 Alexus Smith [facility] ASSIGNMENT OF BENEFITS 2018-09-03 14:10:30 Doctor Unassigned, No [facility] Medical [place] Encounters Start End Encounter Admission Attending Care Care Encounter Source Date/Time Date/Time Type Type Clinicians Facility Department ID 2020-12-17 2020-12-17 ambulatory [facility] [id number] DYAN Castillo 00:00:00 00:00:00 [facility] 2020-12-14 2020-12-14 ambulatory [facility] [id number] DYAN Castillo 00:00:00 00:00:00 [facility] 2020-11-23 2020-11-23 Outpatient [facility] [id number] DYAN Castillo 00:00:00 00:00:00 [facility] 2020-11-16 2020-11-16 Outpatient [facility] [id number] DYAN Castillo 00:00:00 00:00:00 [facility] 2020-10-07 2020-10-07 Outpatient [facility] [id number] [address] [place] 00:00:00 00:00:[address] 2020-10-07 2020-10-07 Outpatient [facility] [id number] [address] [place] 00:00:00 00:00:00 HANNAH [facility] 2020-09-21 2020-09-21 Outpatient [facility] [id number] [facility] 2020-08-12 2020-08-12 Outpatient [facility] [id number] [facility] 2020-04-13 2020-04-13 Patient [facility] 1.2.840.114 [id number] Univers 00:00:00 00:00:00 [facility] 350.1.13.10 i ty [facility] 4.2.7.2.686 Madelaine ANDRADE [phone] Mi dic[address] 2020-04-04 2020-04-04 Laboratory Lab, Adc Fam Pob I [facility] 1.2. [id number] [id number] Univers 12:49:28 13:09:28 [facility].13.10 [facility] 4.2.7.2.686 Higinio as Professio [phone] [facility] [address] 2020-04-04 2020-04-04 Outpatient [facility] [id number] Univers 13:00:00 13:00:00 [id number] [facility] 2020-04-04 2020-04-04 [facility] [id number] Univers 13:00:00 13:00:00 [facility] 2020-03-20 2020-03-20 Outpatient [facility] [id number] [facility] 2020-03-18 2020-03-18 Outpatient [facility] [id number] [facility] 2020-03-10 2020-03-10 Outpatient [facility] [id number] [facility] 2020-03-10 2020-03-10 Outpatient [facility] [id number] [facility] 2020-01-28 2020-01-28 Outpatient GIST, [facility] [id number] [address] [place] [address] 00:00:00 00:00:00 DARRIN [address] 2020-01-28 2020-01-28 Outpatient GIST, [facility] [id number] [address] [place] 00:00:00 00:00:00 DARRIN [address] 2020-01-22 2020-01-22 Outpatient GIST, [facility] [id number] [address] [place] 00:00:00 00:00:00 DARRIN [address] 2020-01-20 2020-01-20 Outpatient [facility]LMLC [facility] [id number] [facility] 2020-01-20 2020-01-20 Outpatient [facility]LMLC [facility]LML[facility] [id number] [facility] 2020-01-14 2020-01-14 Outpatient [facility]LMLC [facility] [id number] [facility] 2019-12-11 2019-12-11 Outpatient Sonido FARRAR [facility] [id number] Univers 13:00:00 13:00:00 HESHAM [id number] [facility] 2019-12-11 2019-12-11 Outpatient Sonido FARRAR [facility] [id number] Univers 00:00:00 00:00:00 HESHAM [facility] 2019-12-11 2019-12-11 Outpatient Sonido FARRAR [facility] [id number] Univers 00:00:00 00:00:00 HESHAM [facility] 2019-11-27 2019-11-27 Outpatient STLMLC [facility] [id number] [facility] 2019-11-26 2019-11-26 Outpatient STLMLC [facility] [id number] [facility] 2019-11-13 2019-11-13 [facility] 1.2.840.114 [id number] Univers 15:50:30 23:59:00 Encounter Hesham Bagley [facility] 350.1.13.10 ity of Surgical 4.2.7.2.686 Higinio as Specialti [phone] Me dical es 809 [facility] 2019-11-13 2019-11-13 [facility] [id number] [id number] 15:27:01 16:02:54 Visit Hesham Bagley [facility] [id number] Surgical 4.2.7.2.686 Specialti [phone] es [address] [place] [address] 2019-11-13 2019-11-13 Office [facility] [id number] Univers 15:27:01 16:02:54 Visit Hesham Bagley [facility] 350.1.13.10 it y of Surgical 4.2.7.2.686 Higinio as Specialti [phone] Mi dical es 198 [facility] 2019-11-13 2019-11-13 [facility] [id number] Univers 15:30:00 15:30:00 HESHAM y [facility] 2019-11-13 2019-11-13 [facility] [id number] Univers 15:30:00 15:30:00 [facility] 2019-11-13 2019-11-13 Orders Doctor DAVILA 1.2.840.114 [id number] Univers 00:00:00 00:00:00 Only Unassigned, MELISSA 350.1.13.10 ity of [place] [facility] 4.2.7.2.686 Higinio as [id number] [address] 2019-07-18 2019-07-18 Office [facility] [id number] [id number] Univers 08:04:03 08:18:07 Visit Hesham Bagley [facility] 350.1.13.10 it y of Surgical 4.2.7.2.686 Higinio as Specialti [phone] Me dical es 198 [facility] 2019-07-18 2019-07-18 Outpatient [facility] [id number] Univers 08:00:00 08:00:00 HESHAM [id number] ity [facility] 2019-07-18 2019-07-18 Outpatient [facility] [id number] Univers 08:00:00 08:00:00 HESHAM ity [facility] 2019-07-10 2019-07-10 Telephone [facility] 1.2.840.114 [id number] Univers 00:00:00 00:00:00 Hesham [facility] 350.1.13.10 it y of Surgical 4.2.7.2.686 Higinio as Specialti [phone] Mi dical es 198 [facility] 2019-05-16 2019-05-16 [place] [facility] 1.2.840.114 [id number] Univers 00:00:00 00:00:00 Hesham [facility] 350.1.13.10 it y of Surgical 4.2.7.2.686 Higinio as Specialti [phone] Mi dical es 198 [facility] 2019-05-16 2019-05-16 Refill [facility] 1.2.994.520 [id number] Univers 00:00:00 00:00:00 Hesham [facility] 350.1.13.10 it y of Surgical 4.2.7.2.686 Higinio as Specialti [phone] Mi dical es 198 [facility] 2019-05-01 2019-05-01 [facility] 1.2.840.114 [id number] Univers 15:00:00 23:59:00 Encounter Mary Lindsey [place] 350.1.13.10 ity [facility] 4.2.7.2.686 [place] [id number] [facility] 804 [place] 2019-05-01 2019-05-01 Outpatient Sonido ZIMMERMAN [facility] [id number] Univers 20:00:00 20:00:00 GRACIELA ity [facility] 2019-05-01 2019-05-01 Outpatient [facility]ido [facility] [id number] Univers 00:00:00 00:00:00 MARY [id number] ity [facility] 2019-04-17 2019-04-[address] [facility] 1.2.840.114 [id number] Univers 00:00:00 00:00:00 Hesham Howe 350.1.13.10 it y of Surgical 4.2.7.2.686 Higinio as Specialti [phone] Mi myla es 198 [facility] 2019-04-10 2019-04-10 Telephone [facility] 1.2.840.114 [id number] Univers 00:00:00 00:00:00 Hesham [facility] 350.1.13.10 it y of Surgical 4.2.7.2.686 Higinio as Specialti [id number] Mi dickristina es 198 [facility] 2019-04-03 2019-04-03 [facility] 1.2.840.114 [id number] Univers 15:22:00 23:59:00 Encounter Hesham Howe 350.1.13.10 ity of Surgical 4.2.7.2.686 Higinio as Specialti [phone] Mi dical es 809 [facility] 2019-04-03 2019-04-[address] [facility] 1.2.485.486 [id number] Univers 14:52:27 15:33:26 Visit Hesham Howe 350.1.13.10 it y of Surgical 4.2.7.2.686 Higinio as Specialti [phone] Mi myla es 198 [facility] 2019-04-03 2019-04-03 [facility] [id number] Univers 15:15:00 15:15:00 HESHAM [id number] ity [facility] 2019-04-03 2019-04-03 Out[facility] [id number] Univers 15:15:00 15:15:00 [facility] 2018-10-26 2018-10-26 [facility] 1.2.840.114 [id number] Univers 09:56:19 23:59:00 Encounter Hesham Howe 350.1.13.10 ity of Surgical 4.2.7.2.686 Higinio as Specialti [id number] Mi dical es 809 [facility] 2018-10-26 2018-10-26 Outpatient [facility] [id number] Univers 09:56:19 23:59:00 HESHAM rausch of [facility] 2018-10-26 2018-10-26 Office [facility] [id number] [facility] 09:49:05 10:42:23 Visit Hesham [facility] 350.1.13.10 it y of Surgical 4.2.7.2.686 Higinio as Specialti [phone] Mi dical es 198 [facility] 2018-09-10 2018-09-10 Outpatient [facility] [id number] [facility] 09:07:16 23:59:00 ALEXUS ity [facility] 2018-09-10 2018-09-10 [facility] 1.2.840.114 [id number] Univers 09:00:00 23:59:00 Encounter Alexus Zamanton 350.1.13.10 ity of [place] 4.2.7.2.686 [place] [id number] [facility] 801 [place] 2018-09-06 2018-09-06 Refill [facility] 1.2.840.114 [id number] Univers 00:00:00 00:00:00 Alexus Cele [facility] 350.1.13.10 ity of [place] 4.2.7.2.686 Higinio as Professio [phone] Mi dickristina nal 0[address] [place] [address] 2018-09-03 2018-09-03 Cupola [employer] Helper 1, Adc Lab [facility] 1.2.840.114 [id number] Univers 10:53:02 11:08:02 Visit Alexus [place] 350.1. 13.10 ity of [place] 4.2.7.2.686 [place] [phone] [facility] [address] 2018-09-03 2018-09-03 Office [facility] 1.2.840.114 [id number] Univers 09:12:21 10:31:56 Visit Alexus Zamanton 350.1.13.10 ity [place] 4[place]2.7.2.[place] Profess[place] [phone] Mi dical nal [address] 2018-09-03 2018-09-03 Outpatient R SARAH [facility] [id number] Univers 09:00:00 10:31:56 ALEXUS rausch [facility] 2018-09-03 2018-09-03 Telephone Sarah [facility] 1.2.840.114 [id number] Univers 00:00:00 00:00:00 Alexus Oakley [facility] 350.1.13.10 ity of [place] 4.2.7.2.686 Higinio as Professio [phone] [facility] 044 [place] [address] One 2018-09-03 2018-09-03 Orders Doctor GIOVANNI 1.2.840.114 [id number] Univers 00:00:00 00:00:00 Only Unassigned, MELISSA 350.1.13.10 ity of [place] [facility] 4.2.7.2.686 Higinio as [phone] [address] 2018-04-26 2018-04-26 Outpatient LENI [facility] [id number] Univers 10:50:49 23:59:00 HESHAM [facility] 2016-07-21 2016-07-21 Appointmen [facility] [id number] Univers 14:00:00 14:00:00 t; Jh NAVARRETE M.D. [place] Faye NAVARRETE M.D. 2014-07-02 2014-07-02 Office nullFlavo Mischer [id number] Memoria 00:00:00 00:00:00 Visit r Neuroscienc [id number] mau rasmussen Simona Villavicencio 2014-01-10 2014-01-10 Office nullFlavo Mischer [id number] Memoria 00:00:00 00:00:00 Visit r Neuroscienc [id number] mau rasmussen [facility] Saud Results Test Description Test Test Results Result Source Time Comments Comments MR KNEE LEFT WO 2019-04- HISTORY: ?Pain in the University of CONTRAST 25 left knee. Mechanical Higinio as Medical 21:33:06 knee symptoms such Branch aslocking/catching/snap ping/crepitus. TECHNIQUE: MR imaging of the left knee was done in multiple projectionsusing 1.5T MR unit and standard protocol. FINDINGS: BONE AND JOINT: Trace amount of joint effusion noted. No fluid distendedBaker's cyst or popliteal bursa. Slightly high riding and laterally tracking patella altagracia noted. 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 Less severe chondromalacia detectedin the rest of the left knee. MENISCI: No displaced tear visualized in the medial meniscus or in thelateral meniscus. LIGAMENTS AND TENDONS: Patellar tendon, quadriceps complex, cruciateligaments and collateral ligaments are intact. CONCLUSIONS:1. Trace left knee joint effusion, mild degenerative changes in the leftknee.2. No torn meniscus or torn ligaments detected. [facility], Radiant Results Inft User - 05/01/2019 4:34 PM CDTHISTORY: Pain in the left knee. Mechanical knee symptoms such aslocking/catching/snap ping/crepitus.TECHNIQUE : MR imaging of the left knee was done in multiple projectionsusing 1.5T MR unit and standard protocol.FINDINGS: BONE AND JOINT: Trace amount of joint effusion noted. No fluid distendedBaker's cyst or popliteal bursa.Slightly high riding and laterally tracking patella altagracia noted. 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 Less severe chondromalacia detectedin the rest of the left knee.MENISCI: No displaced tear visualized in the medial meniscus or in thelateral meniscus.LIGAMENTS AND TENDONS: Patellar tendon, quadriceps complex, cruciateligaments and collateral ligaments are intact.CONCLUSIONS:1. Trace left knee joint effusion, mild degenerative changes in the leftknee.2. No torn meniscus or torn ligaments detected. XR HIPS 2 VW 2018-10- No fractures or Univers ity of LEFT 20 dislocations [place] [facility] l 18:06:[address] ABDOMEN 2018-09- 1. No acute University of PELVIS W 05 intra-abdominal or [place] [facility] CONTRAST 15:45:37 intrapelvic pathology. Br anch * * * * * * * * ORIGINAL REPORT * * * * * * * *EXAM: CT SCAN OF THE ABDOMEN AND PELVIS WITH CONTRAST HISTORY:?intermittent white stools, difficulty flushing stools, motherwith pancreatic cancer, please evalaute for recurrent pancreatitis andother abnormalities TECHNIQUE:3 mm axial images are obtained from diaphragmatic domes tosymphysis pubis with both oral and intravenous contrast. 120 mL ofOmnipaque is used as intravenous contrast. Sagittal and coronalreformations are carried out. COMPARISON: None FINDINGS: Areas of atelectasis are seen in the lung bases. No pleural or pericardialeffusion is seen. Heart size is normal. Bilateral breast prostheses areseen. The liver is normal in size. No abnormal enhancement is identified in theliver. Gallbladder is normal. No bile duct dilation is noted. Pancreas is normal in size and appearance. No ductal dilation isappreciated. Spleen is normal. Adrenal glands are normal. No nodularity is noted. Kidneys are normal in size and shape. No renal stone or hydronephrosis isnoted. Abdominal aorta is normal in caliber. Atherosclerosis of the abdominalaorta is noted. No free fluid is seen in the abdomen. No enlarged lymph nodes are seen inthe retroperitoneum or mesentery. A hiatal hernia is present. There is no evidence of bowel obstruction.Moderate amount of stool is noted in the colon. The uterus is removed. Urinary bladder appears to have grossly normal. Nofree fluid is seen in the pelvis. No enlarged pelvic or inguinal lymphnodes are present. Changes of moderate degenerative spondylosis are seen at L1-L2 and L4-L5.Surgical hardware is seen affixing an old healed fracture of the left hip. [facility], Radiant Results Inft User - 09/10/2018 10:47 AM CDT* * * * * * * * ORIGINAL REPORT * * * * * * * *EXAM: CT SCAN OF THE ABDOMEN AND PELVIS WITH CONTRASTHISTORY: intermittent white stools, difficulty flushing stools, motherwith pancreatic cancer, please evalaute for recurrent pancreatitis andother abnormalitiesTECHNIQUE: 3 mm axial images are obtained from diaphragmatic domes tosymphysis pubis with both oral and intravenous contrast. 120 mL ofOmnipaque is used as intravenous contrast. Sagittal and coronalreformations are carried out.COMPARISON: NoneFINDINGS:Areas of atelectasis are seen in the lung bases. No pleural or pericardialeffusion is seen. Heart size is normal. Bilateral breast prostheses areseen.The liver is normal in size. No abnormal enhancement is identified in theliver.Gallbladder is normal. No bile duct dilation is noted.Pancreas is normal in size and appearance. No ductal dilation isappreciated.Spleen is normal.Adrenal glands are normal. No nodularity is noted.Kidneys are normal in size and shape. No renal stone or hydronephrosis isnoted.Abdominal aorta is normal in caliber. Atherosclerosis of the abdominalaorta is noted.No free fluid is seen in the abdomen. No enlarged lymph nodes are seen inthe retroperitoneum or mesentery.A hiatal hernia is present. There is no evidence of bowel obstruction.Moderate amount of stool is noted in the colon.The uterus is removed. Urinary bladder appears to have grossly normal. Nofree fluid is seen in the pelvis. No enlarged pelvic or inguinal lymphnodes are present.Changes of moderate degenerative spondylosis are seen at L1-L2 and L4-L5.Surgical hardware is seen affixing an old healed fracture of the left hip.IMPRESSION1. No acute intra-abdominal or intrapelvic pathology. VITAMIN D, 25-OH 2018-09-06 13:09:00 Test Item Value Reference Range Interpretation Comme nts VIT D 25OH (test code = 5711545260) 35 ng/mL 25-80 25-Hydroxy D3 (test code = 35.3 ng/mL 5585663880) 25-Hydroxy D2 (test code = <2.5 ng/mL 5559778797) MARVIN (test code = MARVIN) Test developed and characteristics determined by [facility]. [facility] [id number] 13:09:00 Test Item Value Reference Range Interpretation Comments VIT D 25OH (test 35 ng/mL 25-80 code = 8296987520) 25-Hydroxy D3 35.3 ng/mL (test code = 6086087936) 25-Hydroxy D2 <2.5 ng/mL (test code = 5608485455) MARVIN (test code = Test developed and MARVIN) characteristics determined by [facility]. [facility] B12, [id number] 21:11:00 Test Item Value Reference Range Interpretation Comments VIT B12 (test code = 354 pg/mL 240-930 [id number]) MARVIN (test code = MARVIN) Biotin has been reported to cause a positive bias, interpret results relative to patient's use of biotin. Lab Interpretation (test Normal code = 79857-0) [facility] 21:11:00 Test Item Value Reference Range Interpretation Comments FOLATE SER (test code = 17.9 ng/mL 3-20 Biot in has been [id number]) reported to cau se a positive bias, interpret resul ts relative to patient's use o f biotin. Lab Interpretation (test Normal code = 11258-8) [facility] B12, [id number] 21:11:00 Test Item Value Reference Range Interpretation Comments VIT B12 (test code = 354 pg/mL 240-930 6341167248) MARVIN (test code = MARVIN) Biotin has been reported to cause a positive bias, interpret results relative to patient's use of biotin. Lab Interpretation (test Normal code = 55464-6) [facility]2019-07-29 21:11:00 Test Item Value Reference Range Interpretation Comments FOLATE SER (test code = 17.9 ng/mL 3-20 Biot in has been [id number]) reported to cau se a positive bias, interpret resul ts relative to patient's use o f biotin. Lab Interpretation (test Normal code = 19166-2) [facility] BrookGLYCOSYLATED HEMOGLOBIN (A1C)2018-09-03 19:13:00 Test Item Value Reference Interpretation Comments Range HGB A1C (test code = See_Comment [Autom ated 4548-4) message] The system which generated this result transmitted reference range : 4.0 - 6.0 % NGSP. The reference range was not used to interpret this result as normal/abnormal . MARVIN (test code = %A1C (NGSP) MARVIN) Interpretation (ADA)4.8-5.6? Normal or (Non-Diabetic Range)5.7-6.4? Increased Risk (Pre-Diabetic)>6.5?D iabetes Indicated Lab Interpretation Normal (test code = 92931-6) [facility]OS[facility] HEM[facility]GLOBIN (A1C)2018-09-03 19:13:00 Test Item Value Reference Interpretation Comments Range HGB A1C (test code = See_Comment [Autom ated 4548-4) message] The system which generated this result transmitted reference range : 4.0 - 6.0 % NGSP. The reference range was not used to interpret this result as normal/abnormal . MARVIN (test code = %A1C (NGSP) MARVIN) Interpretation (ADA)4.8-5.6? Normal or (Non-Diabetic Range)5.7-6.4? Increased Risk (Pre-Diabetic)>6.5?D iabetes Indicated Lab Interpretation Normal (test code = 57542-6) [facility]YRO[facility] STIMULATING [id number] 17:20:00 Test Item Value Reference Range Interpretation Comments TSH (test code = See_Comment [Automated message] [id number]) The system [employer] generated this result transmitted ref erence range: 0.45 - 4 .70 mIU/L. The refe rence range was not u sed to interpret this result as normal/abnor mal. Lab Interpretation (test Normal code = 03038-8) [facility]YROID STIMUL[facility] [id number] 17:20:00 Test Item Value Reference Range Interpretation Comments TSH (test code = See_Comment [Automated message] [id number]) The system [employer] generated this result transmitted ref erence range: 0.45 - 4 .70 mIU/L. The refe rence range was not u sed to interpret this result as normal/abnor mal. Lab Interpretation (test Normal code = 24730-7) [facility] [id number] 17:07:00 Test Item Value Reference Range Interpretation Comments FREE T4 (test code = 0255159165) 0.90 ng/dL 0.78-2.2 Lab Interpretation (test code = Normal 77094-1) [facility] [id number] 17:07:00 Test Item Value Reference Range Interpretation Comments FREE T4 (test code = 0275409091) 0.90 ng/dL 0.78-2.2 Lab Interpretation (test code = Normal 05206-3) [facility] [id number] 17:06:00 Test Item Value Reference Range Interpretation Comments FREE T3 (test code = 0003139137) 3.49 pg/mL 2.77-5.27 Lab Interpretation (test code = Normal 31250-3) [facility] 17:06:00 Test Item Value Reference Range Interpretation Comments FREE T3 (test code = 7319945313) 3.49 pg/mL 2.77-5.27 Lab Interpretation (test code = Normal 84126-2) [facility] METABOLIC PANEL (NA, K, CL, CO2, GLUCOSE, BUN, CREATININE, CA)2018-09-03 16:56:00 Test Item Value Reference Range Interpretation Comments NA (test code = 146 mmol/L 135-145 H 3506728083) K (test code = 5.1 mmol/L 3.5-5 H 7503998679) CL (test code = 107 mmol/L 98-108 1391779143) CO2 TOTAL (test code = 33 mmol/L 23-31 H 8158634142) AGAP (test code = 2-16 9302579616) BUN (test code = 12 mg/dL 7-23 8944187142) GLUCOSE (test code = 116 mg/dL 70-110 H 5591317932) CREATININE (test code = 0.64 mg/dL 0.5-1.04 4513534895) CALCIUM (test code = 9.4 mg/dL 8.6-10.6 8249562909) eGFR Calculation mL/min/1.73m2 (Non-) (test code = 4631378073) eGFR Calculation mL/min/1.73m2 () (test code = 6674700720) MARVIN (test code = MARVIN) Association of Glomerular Filtration Rate (GFR) and Staging of Kidney Disease*+ + + +| GFR (mL/min/1.73 m2)?| With Kidney Damage?|?Without Kidney Damage+ --------+ --------+ +|?>90?|?S rubene one?|? Normal?+ ---------+ ---------+ +|?60-89? |?Stage two?|? Decreased GFR? + --+ --+ ------+|?30-59?|?Stage three?|? Stage three? + --+ --+ ------+|?15-29?|?Stage four? |? Stage four?+ -------+ -------+ +|?<15 (or dialysis)?|?Stage five? |? Stage five?+ -------+ -------+ +*Each stage assumes the associated GFR level has been in effect for at least three months.?Stages 1 to 5, with or without kidney disease, indicate chronic kidney disease.Notes: Determination of stages one and two (with eGFR >59mL/min/1.73 m2) requires estimation of kidney damage for at least three months as defined by structural or functional abnormalities of the kidney, manifested by either:Pathological abnormalities or Markers of kidney damage (including abnormalities in the composition of the blood or urine or abnormalities in imaging tests). Lab Interpretation Abnormal (test code = 78038-4) [facility] METABOLIC PANEL (NA, K, CL, CO2, GLUCOSE, BUN, CREATININE, CA)2018-09-03 16:56:00 Test Item Value Reference Range Interpretation Comments NA (test code = 146 mmol/L 135-145 H 4365364874) K (test code = 5.1 mmol/L 3.5-5 H 2007998747) CL (test code = 107 mmol/L 98-108 0890833577) CO2 TOTAL (test code = 33 mmol/L 23-31 H 5167512067) AGAP (test code = 2-16 7566613977) BUN (test code = 12 mg/dL 7-23 2740122648) GLUCOSE (test code = 116 mg/dL 70-110 H 8015582595) CREATININE (test code = 0.64 mg/dL 0.5-1.04 2825061333) CALCIUM (test code = 9.4 mg/dL 8.6-10.6 7756979993) eGFR Calculation mL/min/1.73m2 (Non-) (test code = 0164287997) eGFR Calculation mL/min/1.73m2 () (test code = 7372571979) MARVIN (test code = MARVIN) Association of Glomerular Filtration Rate (GFR) and Staging of Kidney Disease*+ + + +| GFR (mL/min/1.73 m2)?| With Kidney Damage?|?Without Kidney Damage+ --------+ --------+ +|?>90?|?S tage one?|? Normal?+ ---------+ ---------+ +|?60-89? |?Stage two?|? Decreased GFR? + --+ --+ ------+|?30-59?|?Stage three?|? Stage three? + --+ --+ ------+|?15-29?|?Stage four? |? Stage four?+ -------+ -------+ +|?<15 (or dialysis)?|?Stage five? |? Stage five?+ -------+ -------+ +*Each stage assumes the associated GFR level has been in effect for at least three months.?Stages 1 to 5, with or without kidney disease, indicate chronic kidney disease.Notes: Determination of stages one and two (with eGFR >59mL/min/1.73 m2) requires estimation of kidney damage for at least three months as defined by structural or functional abnormalities of the kidney, manifested by either:Pathological abnormalities or Markers of kidney damage (including abnormalities in the composition of the blood or urine or abnormalities in imaging tests). Lab Interpretation Abnormal (test code = 12653-8) [facility]"
== END 2020-12-14 14:33 | disposition home or self-care (01) ==
LOC: ER 11:48
DX: R10.811 Right upper quadrant abdominal tenderness (principal); Z88.5 Allergy status to narcotic agent; Z91.048 Other nonmedicinal substance allergy status
CPT/HCPCS: 85025; 80048; 36415; 80076; 83690; 74177; 99284; Q9967

== ENCOUNTER 2021-01-19 00:23 | Emergency (ER) | payer OTHER ==
--- OUTSIDE RECORDS SUMMARY | 2021-01-19 00:31 | XMS REPORT | Continuity of Care Document ---
:1945 Author Organization [facility] t Address [address] [place] [address] Care Team Providers Name Role Phone Cele SMITH Primary Care Physician Unavailable CAROL Attending Clinician Unavailable Shane Sultana DO Attending Clinician Lab, Fam Pob I Attending Clinician Unavailable Suzette E[employer]ATION TECHNICIAN Attending Clinician SUZETTE Attending Clinician Unavailable GIST Attending Clinician Unavailable Edgar Attending Clinician Unavailable Mau FARRAR Attending Clinician Unavailable Mau Farrar MD Attending Clinician Doctor Unassigned, Name Attending Clinician Unavailable César DA SILVA Attending Clinician Unavailable Avinash MARLOW S Attending Clinician Cele SMITH Attending Clinician Unavailable Cele Smith MD Attending Clinician 1, Lab Attending Clinician Unavailable JOSENOTT Attending Clinician Unavailable Edgar Admitting Clinician Unavailable César DA SILVA Admitting Clinician Unavailable Cele SMITH Admitting Clinician Unavailable Payers Payer Name Policy Type Policy Number Effective Date Expiration Date César lozano [employer] (MEDICARE [id number] 2013 REPLACEMENT PPO) 00:00:00 [employer] INDDICKSON [id number] 2019 00:00:00 Problems Condition Condition Condition Status Onset Resolution Last Treating Co mments Source Name Details Category Date Date Treatment Clinician Date STATUS Condition Active 2013-022014-07-02 Mem oria POST 2-05 11:18:31 l HYSTERECTO STATUS 00:00: Herm levi MY POST 00 HYSTERECTO MY Active 4 Condition 07/02/2014 [facility] LUMBAR Condition Active 2013-022014-07-02 Mem oria RADICULOPA 2-05 11:18:31 l THY LUMBAR 00:00: [place] RADICULOPA 00 THY Active 01/10/2014 Condition 5 [...] VE DISC 2-05 11:18:31 l DISEASE, 00:00: [place] 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, LUMBAR SPINE Active 01/10/2014 Condition 5 [facility] Cervical Cervical Problem Active [facility] rs spine pain [facility] [place] [facility] Lumbar Lumbar Problem Active [facility] spine pain spine pain [facility] [place] [facility] No known No known Disease Unive rs active active ity of problems problems [place] [facility] Allergies, Adverse Reactions, Alerts Allergy Allergy Status [...] TAPE Active 2013-02 Memoria 2-05 l 00:00: [place] 00 LATEX LATEX Active 2013-02 Memoria 2-05 l 00:00: [place] 00 Hydrocod Propensi Active Hives itchy Univer s one ty to 5-15 ity of adverse 00:00: [place] reaction 00 Medical s Branch HYDROCOD DRUG Active High Hives 2013- Univers ONE INGREDI 5-15 ity of 00:00: [place] 00 Medical [place] Social History Social Habit Start Date Stop Date Quantity Comments Source Exposure to Not sure [facility] SARS-CoV-2 (event) [facility] Alcohol intake 2019-11-13 2019-11-13 Current drinker Unive rsity of 00:00:00 00:00:00 of alcohol [facility] (finding) Branch Cigarettes smoked 2019-11-13 2019-11-13 Univers ity of current (pack per 00:00:00 00:00:00 [facility] ) - Reported Branch Cigarette 2019-11-13 2019-11-13 University of pack-years 00:00:00 00:00:00 [facility] Tobacco use and 2019-11-13 2019-11-13 Never used Universit y of exposure 00:00:00 00:00:00 [facility] History of tobacco 1974-02-06 Smoker Univer sity of use 00:00:00 [facility] Sex Ass[birth year] Universit y of 00:00:00 00:00:00 [facility] Smoking Status Start Date Stop Date Source Former smoker 2019-11-13 00:00:00 2019-11-13 00:00:00 Universi ty of [facility] Never smoker [facility] Medications Ordered Filled Start Stop Current Ordering Indication Dosage Frequency Signature Comments Components Source Medication Medication Date Date Medication? Clinician (SIG) Name Name methylPREDN 2019-02 Yes 84mg Take 21 Uni vers ISolone 0-07 tablets by ity of (MEDROL, 00:00: mouth [place] EVANGELINA,) 4 mg 00 SEE-INSTRU Med ical tablets CTIONS. Branch follow package directions methylPREDN 2019-02 Yes 84mg Take 21 Uni vers ISolone 0-07 tablets by ity of (MEDROL, 00:00: mouth [place] EVANGELINA,) 4 mg 00 SEE-INSTRU Med ical tablets CTIONS. Branch follow package directions methylPREDN 2019-02 Yes 84mg Take 21 Uni [...] tablet by ity of tablet 00:00: mouth [place] (two) Medical times Branch daily with meals. traMADol 50 2020-0 Yes Univer s mg tablet 6-03 ity of 00:00: Medical Branch traMADol 50 2020-0 Yes Univer s mg tablet 6-03 ity of 00:00: 00 Medical Branch traMADol 50 2020-0 Yes Univer s mg tablet 07-09 ity of 00:00: [place] [facility] traMADol 50 2020-0 Yes Univer s mg tablet 07-09 ity of 00:00: [place] [facility] traMADol 50 2020-0 Yes Univer s mg tablet 07-09 ity of 00:00: [place] [facility] traMADol 50 2020-0 Yes Univer s mg tablet 07-09 ity of 00:00: [place] [facility] traMADol 50 2020-0 Yes Univer s mg tablet 07-09 ity of 00:00: [place] [facility] traMADol 50 2020-0 Yes Univer s mg tablet 07-09 ity of 00:00: [place] [facility] DICLOFENAC 2020-0 Yes [id number] TAKE 1 U nivers 75 mg EC 4-10 TABLET BY ity of tablet 00:00: [facility] TWICE Medical DAILY WITH Branch MEALS DICLOFENAC 2020-0 Yes [id number] TAKE 1 U nivers 75 mg EC 4-10 TABLET BY ity of tablet 00:00: [facility] TWICE Medical DAILY WITH Branch MEALS DICLOFENAC 2020-0 Yes [id number] TAKE 1 U nivers 75 mg EC 4-10 TABLET BY ity of tablet 00:00: [facility] TWICE Medical DAILY WITH Branch MEALS DICLOFENAC 2020-0 Yes [id number] TAKE 1 U nivers 75 mg EC 4-10 TABLET BY ity of tablet 00:00: [facility] TWICE Medical DAILY WITH Branch MEALS DICLOFENAC 2020-0 Yes [id number] TAKE 1 U nivers 75 mg EC 4-10 TABLET BY ity of tablet 00:00: [facility] TWICE Medical DAILY WITH Branch MEALS DICLOFENAC 2020-0 Yes [id number] TAKE 1 U nivers 75 mg EC 4-10 TABLET BY ity of tablet 00:00: [facility] TWICE Medical DAILY WITH Branch MEALS DICLOFENAC 2020-0 Yes [id number] TAKE 1 U nivers 75 mg EC 4-10 TABLET BY ity of tablet 00:00: [facility] TWICE Medical DAILY WITH Branch MEALS DICLOFENAC 2020-0 Yes [id number] TAKE 1 U nivers 75 mg EC 4-10 TABLET BY ity of tablet 00:00: [facility] 00 TWICE Medical DAILY WITH Branch MEALS DICLOFENAC 2020-0 Yes [id number] TAKE 1 U nivers 75 mg EC 4-10 TABLET BY ity of tablet 00:00: [facility] TWICE Medical DAILY WITH Branch MEALS DICLOFENAC 2020-0 Yes [id number] TAKE 1 U nivers 75 mg EC 4-10 TABLET BY ity of tablet 00:00: [facility]OUTH TWICE Medical DAILY WITH Branch MEALS DICLOFENAC 2020-0 Yes [id number] TAKE 1 U nivers 75 mg EC 4-10 TABLET BY ity of tablet 00:00: MOUTH 00 TWICE Medical DAILY WITH Branch MEALS diclofenac [...] Branch daily with meals. diclofenac 2020-0 Yes [id number] 75mg Take 1 U nivers 75 mg EC 3-04 tablet by ity of tablet 00:00: mouth (two) Medical times Branch daily with meals. diclofenac 2020-0 Yes [id number] 75mg Take 1 U nivers 75 mg EC 3-04 tablet by ity of tablet 00:00: mouth (two) Medical times Branch daily with meals. diclofenac 2020-0 Yes [id number] 75mg Take 1 U nivers 75 mg EC 3-04 tablet by ity of tablet 00:00: mouth (two) Medical times Branch daily with meals. diclofenac 2020-0 Yes [id number] 75mg Take 1 U nivers 75 mg EC 3-04 tablet by ity of tablet 00:00: mouth (two) Medical times Branch daily with meals. diclofenac 2020-0 Yes [id number] 75mg Take 1 U nivers 75 mg EC 3-04 tablet by ity of tablet 00:00: mouth (two) Medical times Branch daily with meals. diclofenac 2020-0 Yes [id number] 75mg Take 1 U nivers 75 mg EC 3-04 tablet by ity of tablet 00:00: mouth (two) Medical times Branch daily with meals. diclofenac 2020-0 Yes [id number] 75mg Take 1 U nivers 75 mg EC 3-04 tablet by ity of tablet 00:00: mouth (two) Medical times Branch daily with meals. diclofenac 2020-0 Yes [id number] 75mg Take 1 U nivers 75 mg EC 3-04 tablet by ity of tablet 00:00: mouth 2 [place] (two) Medical times Branch daily with meals. diclofenac 2020-0 Yes [id number] 75mg Take 1 U nivers 75 mg EC 3-04 tablet by ity of tablet 00:00: mouth 2 [place] (two) Medical times Branch daily with meals. diclofenac 2020-0 Yes [id number] 75mg Take 1 U nivers 75 mg EC 3-04 tablet by ity of tablet 00:00: mouth 2 [place] (two) Medical times Branch daily with meals. diclofenac 2020-0 Yes [id number] 75mg Take 1 U nivers 75 mg EC 3-04 tablet by ity of tablet 00:00: mouth 2 [place] (two) Medical times Branch daily with meals. diclofenac 2020-0 Yes [id number] 75mg Take 1 U nivers 75 mg EC 3-04 tablet by ity of tablet 00:00: mouth 2 [place] (two) Medical times Branch daily with meals. diclofenac 2020-0 Yes [id number] 75mg Take 1 U nivers 75 mg EC 3-04 tablet by ity of tablet 00:00: mouth [place] (two) Medical times Branch daily with meals. diclofenac 2020-0 Yes [id number] 75mg Take 1 U nivers 75 mg EC 3-04 tablet by ity of tablet 00:00: mouth [place] (two) Medical times Branch daily with meals. diclofenac 2020-0 Yes [id number] 75mg Take 1 U nivers 75 mg EC 3-04 tablet by ity of tablet 00:00: mouth 2 [place] (two) Medical times Branch daily with meals. ibuprofen 2020-0 Yes 600mg Take 600 Uni vers 600 mg 2-26 mg by ity of tablet 21:00: mouth. [address] ibuprofen 2020-0 Yes 600mg Take 600 Uni vers 600 mg 2-26 mg by ity of tablet 21:00: mouth. [address] ibuprofen 2020-0 Yes 600mg Take 600 Uni vers 600 mg 2-26 mg by ity of tablet 21:00: mouth. [address] ibuprofen 2020-0 Yes 600mg Take 600 Uni vers 600 mg 2-26 mg by ity of tablet 21:00: mouth. [address] ibuprofen 2020-0 Yes 600mg Take 600 Uni vers 600 mg 2-26 mg by ity of tablet 21:00: mouth. [address] ibuprofen 2020-0 Yes 600mg Take 600 Uni vers 600 mg 2-26 mg by ity of tablet 21:00: mouth. [address] ibuprofen 2020-0 Yes 600mg Take 600 Uni vers 600 mg 2-26 mg by ity of tablet 21:00: mouth. [address] ibuprofen 2020-0 Yes 600mg Take 600 Uni vers 600 mg 2-26 mg by ity of tablet 21:00: mouth. [address] ibuprofen 2020-0 Yes 600mg Take 600 Uni vers 600 mg 2-26 mg by ity of tablet 21:00: mouth. [address] ibuprofen 2020-0 Yes 600mg Take 600 Uni vers 600 mg 2-26 mg by ity of tablet 21:00: mouth. [address] ibuprofen 2020-0 Yes 600mg Take 600 Uni vers 600 mg 2-26 mg by ity of tablet 21:00: mouth. [address] ibuprofen 2020-0 Yes 600mg Take 600 Uni vers 600 mg 2-26 mg by ity of tablet 21:00: mouth. [address] ibuprofen 2020-0 Yes 600mg Take 600 Uni vers 600 mg 2-26 mg by ity of tablet 21:00: mouth. [address] ibuprofen 2020-0 Yes 600mg Take 600 Uni vers 600 mg 2-26 mg by ity of tablet 21:00: mouth. [address] ibuprofen 2020-0 Yes 600mg Take 600 Uni vers 600 mg 2-26 mg by ity of tablet 21:00: mouth. [address] ibuprofen 2020-0 Yes 600mg Take 600 Uni vers 600 mg 2-26 mg by ity of tablet 21:00: mouth. [address] ibuprofen 2020-0 Yes 600mg Take 600 Uni vers 600 mg 2-26 mg by ity of tablet 21:00: mouth. [address] ibuprofen 2020-0 Yes 600mg Take 600 Uni vers 600 mg 2-26 mg by ity of tablet 21:00: mouth. [address] diclofenac 2020-0 Yes [id number] 75mg Take 1 U nivers 75 mg EC 2-26 tablet by ity of tablet 00:00: mouth 2 [place] [address] (two) Medical [facility] daily with meals. diclofenac 2020-0 Yes [id number] 75mg Take 1 U nivers 75 mg EC 2-26 tablet by ity of tablet 00:00: mouth 2 [place] (two) Medical times [place] daily with meals. diclofenac 2020-0 Yes [id number] 75mg Take 1 U nivers 75 mg EC 2- tablet by ity of tablet 00:00: mouth 2 [place] 00 (two) Medical times [place] daily with meals. diclofenac 2020-0 2020- No [id number] 75mg Take 1 Univers 75 mg EC 2-26 03-04 tablet by ity o f tablet 00:00: 00:00 mouth 2 [place] 00 :00 (two) Medical times [place] daily with meals. SERTraline 2020-0 Yes Univers 50 mg 2-07 ity of tablet 00:00: [address] SERTraline 2020-0 Yes Univers 50 mg 2-07 ity of tablet 00:00: [address] SERTraline 2020-0 Yes Univers 50 mg 2-07 ity of tablet 00:00: [address] SERTraline 2020-0 Yes Univers 50 mg 2-07 ity of tablet 00:00: [address] SERTraline 2020-0 Yes Univers 50 mg 2-07 ity of tablet 00:00: [address] SERTraline 2020-0 Yes Univers 50 mg 2-07 ity of tablet 00:00: [address] SERTraline 2020-0 Yes Univers 50 mg 2-07 ity of tablet 00:00: [address] SERTraline 2020-0 Yes Univers 50 mg 2-07 ity of tablet 00:00: [address] SERTraline 2020-0 Yes Univers 50 mg 2-07 ity of tablet 00:00: [address] SERTraline 2020-0 Yes Univers 50 mg 2-07 ity of tablet 00:00: [address] SERTraline 2020-0 Yes Univers 50 mg 2-07 ity of tablet 00:00: [address] SERTraline 2020-0 Yes Univers 50 mg 2-07 ity of tablet 00:00: [address] SERTraline 2020-0 Yes Univers 50 mg 2-07 ity of tablet 00:00: [address] SERTraline 2020-0 Yes Univers 50 mg 2-07 ity of tablet 00:00: [address] SERTraline 2020-0 Yes Univers 50 mg 2-07 ity of tablet 00:00: [address] SERTraline 2020-0 Yes Univers 50 mg 2-07 ity of tablet 00:00: [address] SERTraline 2020-0 Yes Univers 50 mg 2-07 ity of tablet 00:00: [place] [facility] SERTraline 2019-0 Yes Univers 50 mg 2-07 ity of tablet 00:00: [place] [facility] iohexol 0 2019- No 25mL 25 mL, Univers (OMNIPAQUE 8-05 08-05 Oral, ity of 350 BULK) 14:30: 14:30 ONCE, 1 [place] 25 [place] :[place] dose, [facility] 09/10/18 at [place] 0930, Routine cholestyram Yes [id number] DISSOLVE 1 Univers ine light 8-04 SCOOPFUL ity of (CHOLESTYRA 00:00: IN FLUID [place] MINE LIGHT) 00 FOUR TIMES Me dical 4 gram DAILY. Branch powder cholestyram Yes [id number] DISSOLVE 1 Univers ine light 8-04 SCOOPFUL ity of (CHOLESTYRA 00:00: IN FLUID [place] MINE LIGHT) 00 FOUR TIMES Me dical 4 gram DAILY. Branch powder cholestyram Yes [id number] DISSOLVE 1 Univers ine light 8-04 SCOOPFUL ity of (CHOLESTYRA 00:00: IN FLUID [place] MINE LIGHT) 00 FOUR TIMES Me dical 4 gram DAILY. Branch powder cholestyram Yes [id number] DISSOLVE 1 Univers ine light 8-04 SCOOPFUL ity of (CHOLESTYRA 00:00: IN FLUID [place] MINE LIGHT) 00 FOUR TIMES Me dical 4 gram DAILY. Branch powder cholestyram Yes [id number] DISSOLVE 1 Univers ine light 8-04 SCOOPFUL ity of (CHOLESTYRA 00:00: IN FLUID [place] MINE LIGHT) 00 FOUR TIMES Me dical 4 gram DAILY. Branch powder cholestyram Yes [id number] DISSOLVE 1 Univers ine light 8-04 SCOOPFUL ity of (CHOLESTYRA 00:00: IN FLUID [place] MINE LIGHT) 00 FOUR TIMES Me dical 4 gram DAILY. Branch powder cholestyram Yes [id number] DISSOLVE 1 Univers ine light 8-04 SCOOPFUL ity of (CHOLESTYRA 00:00: IN FLUID [place] MINE LIGHT) 00 FOUR TIMES Me dical 4 gram DAILY. Branch powder cholestyram Yes [id number] DISSOLVE 1 Univers ine light 8-04 SCOOPFUL ity of (CHOLESTYRA 00:00: IN FLUID [place] MINE LIGHT) 00 FOUR TIMES Me dical 4 gram DAILY. Branch powder cholestyram Yes [id number] DISSOLVE 1 Univers ine light 8-04 SCOOPFUL ity of (CHOLESTYRA 00:00: IN FLUID [place] MINE LIGHT) 00 FOUR TIMES Me dical 4 gram DAILY. Branch powder cholestyram Yes [id number] DISSOLVE 1 Univers ine light 8-04 SCOOPFUL ity of (CHOLESTYRA 00:00: IN FLUID [place] MINE LIGHT) 00 FOUR TIMES Me dical 4 gram DAILY. Branch powder cholestyram Yes [id number] DISSOLVE 1 Univers ine light 8-04 SCOOPFUL ity of (CHOLESTYRA 00:00: IN FLUID [place] MINE LIGHT) 00 FOUR TIMES Me dical 4 gram DAILY. Branch powder cholestyram Yes [id number] DISSOLVE 1 Univers ine light 8-04 SCOOPFUL ity of (CHOLESTYRA 00:00: IN FLUID [place] MINE LIGHT) 00 FOUR TIMES Me dical 4 gram DAILY. Branch powder cholestyram Yes [id number] DISSOLVE 1 Univers ine light 8-04 SCOOPFUL ity of (CHOLESTYRA 00:00: IN FLUID [place] MINE LIGHT) 00 FOUR TIMES Me dical 4 gram DAILY. Branch powder cholestyram Yes [id number] DISSOLVE 1 Univers ine light 8-04 SCOOPFUL ity of (CHOLESTYRA 00:00: IN FLUID [place] MINE LIGHT) 00 FOUR TIMES Me dical 4 gram DAILY. Branch powder cholestyram Yes [id number] DISSOLVE 1 Univers ine light 8-04 SCOOPFUL ity of (CHOLESTYRA 00:00: IN FLUID [place] MINE LIGHT) 00 FOUR TIMES Me dical 4 gram DAILY. Branch powder cholestyram Yes [id number] DISSOLVE 1 Univers ine light 8-04 SCOOPFUL ity of (CHOLESTYRA 00:00: IN FLUID [place] MINE LIGHT) 00 FOUR TIMES Me dical 4 gram DAILY. Branch powder cholestyram Yes [id number] DISSOLVE 1 Univers ine light 8-04 SCOOPFUL ity of (CHOLESTYRA 00:00: IN FLUID [place] MINE LIGHT) 00 FOUR TIMES Me dical 4 gram DAILY. Branch powder cholestyram Yes [id number] DISSOLVE 1 Univers ine light 8-04 SCOOPFUL ity of (CHOLESTYRA 00:00: IN FLUID [place] MINE LIGHT) 00 FOUR TIMES Me dical 4 gram DAILY. Branch powder cholestyram Yes [id number] DISSOLVE 1 Univers ine light 8-04 SCOOPFUL ity of (CHOLESTYRA 00:00: IN FLUID [place] MINE LIGHT) 00 FOUR TIMES Me dical 4 gram DAILY. Branch powder cholestyram Yes [id number] DISSOLVE 1 Univers ine light 8-04 SCOOPFUL ity of (CHOLESTYRA 00:00: IN FLUID [place] MINE LIGHT) 00 FOUR TIMES Me dical 4 gram DAILY. Branch powder cholestyram Yes [id number] DISSOLVE 1 Univers ine light 8-04 SCOOPFUL ity of (CHOLESTYRA 00:00: IN FLUID [place] MINE LIGHT) 00 FOUR TIMES Me dical 4 gram DAILY. Branch powder cholestyram Yes [id number] DISSOLVE 1 Univers ine light 8-04 SCOOPFUL ity of (CHOLESTYRA 00:00: IN FLUID [place] MINE LIGHT) 00 FOUR TIMES Me dical 4 gram DAILY. Branch powder cholestyram Yes [id number] DISSOLVE 1 Univers ine light 8-04 SCOOPFUL ity of (CHOLESTYRA 00:00: IN FLUID [place] MINE LIGHT) 00 FOUR TIMES Me dical 4 gram DAILY. Branch powder cholestyram 2019- No [id number] 1 scoop 4 Univers ine light 4 8-02 13- times a ity of gram powder 00:00: 00:00 day. [place] 00 :00 Medical Branch cholestyram 2019- No [id number] 1 scoop 4 Univers ine light 4 8- 08- times a ity of gram powder 00:00: 00:00 day. [place] 00 :00 Medical Branch antiox.mv Yes Take by Univ ers no.10/omeg3 7- mouth. ity of s/lut/ifeanyi 15:09: [place] (I-CAPS 27 Medical ORAL) Branch MULTIVITAMI Yes Take by Un kathie N ORAL 7-29 mouth. ity of 15:09: Takes [place] 27 Prevagen. Medical Branch antiox.mv Yes Take by Univ ers no.10/omeg3 7-29 mouth. ity of s/lut/ifeanyi 15:09: [place] (I-CAPS 27 Medical ORAL) Branch MULTIVITAMI Yes Take by Un kathie N ORAL 7-29 mouth. ity of 15:09: Takes [place] 27 Prevagen. Medical Branch antiox.mv Yes Take by Univ ers no.10/omeg3 7-29 mouth. ity of s/lut/ifeanyi 15:09: [place] (I-CAPS 27 Medical ORAL) Branch MULTIVITAMI Yes Take by Un kathie N ORAL 7-29 mouth. ity of 15:09: Takes [place] 27 Prevagen. Medical Branch antiox.mv Yes Take by Univ ers no.10/omeg3 7-29 mouth. ity of s/lut/ifeanyi 15:09: [place] (I-CAPS 27 Medical ORAL) Branch MULTIVITAMI Yes Take by Un kathie N ORAL 7-29 mouth. ity of 15:09: Takes [place] [address] Prevagen. Medical Branch antiox.mv Yes Take by Univ ers no.10/omeg3 7-29 mouth. ity of s/lut/ifeanyi 15:09: [place] (I-CAPS 27 Medical ORAL) Branch MULTIVITAMI Yes Take by Un kathie N ORAL 7-29 mouth. ity of 15:09: Takes [place] [address] Prevagen. Medical Branch antiox.mv Yes Take by Univ ers no.10/omeg3 7-29 mouth. ity of s/lut/ifeanyi 15:09: [place] (I-CAPS 27 Medical ORAL) Branch MULTIVITAMI Yes Take by Un kathie N ORAL 7-29 mouth. ity of 15:09: Takes [place] 27 Prevagen. Medical Branch antiox.mv Yes Take by Univ ers no.10/omeg3 7-29 mouth. ity of s/lut/ifeanyi 15:09: [place] (I-CAPS 27 Medical ORAL) Branch MULTIVITAMI Yes Take by Un kathie N ORAL 7-29 mouth. ity of 15:09: Takes [place] 27 Prevagen. Medical Branch antiox.mv Yes Take by Univ ers no.10/omeg3 7-29 mouth. ity of s/lut/ifeanyi 15:09: [place] (ICAPS 27 Medical ORAL) Branch MULTIVITAMI Yes Take by Un kathie N ORAL 7-29 mouth. ity of 15:09: Takes [place] [address] Prevagen. Medical Branch antiox.mv Yes Take by Univ ers no.10/omeg3 7-29 mouth. ity of s/lut/ifeanyi 15:09: [place] ([facility] 27 Medical ORAL) Branch MULTIVITAMI Yes Take by Un kathie N ORAL 7-29 mouth. ity of 15:09: Takes [place] [address] Prevagen. Medical Branch antiox.mv Yes Take by Univ ers no.10/omeg3 7-29 mouth. ity of s/lut/ifeanyi 15:09: [place] ([facility] 27 Medical ORAL) Branch MULTIVITAMI Yes Take by Un kathie N ORAL 7-29 mouth. ity of 15:09: Takes [place] [address] Prevagen. Medical Branch antiox.mv Yes Take by Univ ers no.10/omeg3 7-29 mouth. ity of s/lut/ifeanyi 15:09: [place] (ICAPS 27 Medical ORAL) Branch MULTIVITAMI Yes Take by Un kathie N ORAL 7-29 mouth. ity of 15:09: Takes [place] [address] Prevagen. Medical Branch antiox.mv Yes Take by Univ ers no.10/omeg3 7-29 mouth. ity of s/lut/ifeanyi 15:09: [place] ([facility] 27 Medical ORAL) Branch MULTIVITAMI Yes Take by Un kathie N ORAL 7-29 mouth. ity of 15:09: Takes [place] [address] Prevagen. Medical Branch antiox.mv Yes Take by Univ ers no.10/omeg3 7-29 mouth. ity of s/lut/ifeanyi 15:09: [place] ([facility] 27 Medical ORAL) Branch MULTIVITAMI Yes Take by Un kathie N ORAL 7-29 mouth. ity of 15:09: Takes [place] [address] Prevagen. Medical Branch antiox.mv Yes Take by Univ ers no.10/omeg3 7-29 mouth. ity of s/lut/ifeanyi 15:09: [place] (I-CAPS 27 Medical ORAL) Branch MULTIVITAMI Yes Take by Un kathie N ORAL 7-29 mouth. ity of 15:09: Takes [place] 27 Prevagen. Medical Branch antiox.mv Yes Take by Univ ers no.10/omeg3 7-29 mouth. ity of s/lut/ifeanyi 15:09: [place] (I-CAPS 27 Medical ORAL) Branch MULTIVITAMI Yes Take by Un kathie N ORAL 7-29 mouth. ity of 15:09: Takes [place] [address] Prevagen. Medical Branch antiox.mv Yes Take by Univ ers no.10/omeg3 729 mouth. ity of s/lut/ifeanyi 15:09: [place] (ICAPS 27 Medical ORAL) Branch antiox.mv Yes Take by Univ ers no.10/omeg3 729 mouth. ity of s/lut/ifeanyi 15:09: [place] (I-CAPS 27 Medical ORAL) Branch MULTIVITAMI Yes Take by Un kathie N ORAL 7-29 mouth. ity of 15:09: Takes [place] [address] Prevagen. Medical Branch MULTIVITAMI Yes Take by Un kathie N ORAL 7-29 mouth. ity of 15:09: Takes [place] [address] Prevagen. Medical Branch antiox.mv Yes Take by Univ ers no.10/omeg3 729 mouth. ity of s/lut/ifeanyi 15:09: [place] (I-CAPS 27 Medical ORAL) Branch MULTIVITAMI Yes Take by Un kathie N ORAL 7-29 mouth. ity of 15:09: Takes [place] [address] Prevagen. Medical Branch antiox.mv Yes Take by Univ ers no.10/omeg3 7-29 mouth. ity of s/lut/ifeanyi 15:09: [place] (I-CAPS 27 Medical ORAL) Branch MULTIVITAMI Yes Take by Un kathie N ORAL 7-29 mouth. ity of 15:09: Takes [place] 27 Prevagen. Medical Branch antiox.mv Yes Take by Univ ers no.10/omeg3 7-29 mouth. ity of s/lut/ifeanyi 15:09: [place] (I-CAPS 27 Medical ORAL) Branch MULTIVITAMI Yes Take by Un kathie N ORAL 7-29 mouth. ity of 15:09: Takes [place] [address] Prevagen. Medical Branch antiox.mv Yes Take by Univ ers no.10/omeg3 7-29 mouth. ity of s/lut/ifeanyi 15:09: [place] (I-CAPS 27 Medical ORAL) Branch MULTIVITAMI Yes Take by Un kathie N ORAL 7-29 mouth. ity of 15:09: Takes [place] 27 Prevagen. Medical Branch antiox.mv Yes Take by Univ ers no.10/omeg3 7-29 mouth. ity of s/lut/ifeanyi 15:09: [place] (I-CAPS 27 Medical ORAL) Branch MULTIVITAMI Yes Take by Un kathie N ORAL 7-29 mouth. ity of 15:09: Takes [place] [address] Prevagen. Medical Branch antiox.mv Yes Take by Univ ers no.10/omeg3 7-29 mouth. ity of s/lut/ifeanyi 15:09: [place] (I-CAPS 27 Medical ORAL) Branch MULTIVITAMI Yes Take by Un kathie N ORAL 7-29 mouth. ity of 15:09: Takes [place] [address] Prevagen. Medical Branch antiox.mv Yes Take by Univ ers no.10/omeg3 7-29 mouth. ity of s/lut/ifeanyi 15:09: [place] (ICAPS 27 Medical ORAL) Branch MULTIVITAMI Yes Take by Un akthie N ORAL 7-29 mouth. ity of 15:09: Takes [place] [address] Prevagen. Medical Branch antiox.mv Yes Take by Univ ers no.10/omeg3 7-29 mouth. ity of s/lut/ifeanyi 15:09: [place] (I-CAPS 27 Medical ORAL) Branch MULTIVITAMI Yes Take by Un kathie N ORAL 7-29 mouth. ity of 15:09: Takes [place] [address] Prevagen. Medical Branch antiox.mv Yes Take by Univ ers no.10/omeg3 7-29 mouth. ity of s/lut/ifeanyi 15:09: [place] (I-CAPS 27 Medical ORAL) Branch MULTIVITAMI Yes Take by Un kathie N ORAL 7-29 mouth. ity of 15:09: [place] [address] Prevagen. Medical Branch antiox.mv Yes Take by Univ ers no.10/omeg3 7-29 mouth. ity of s/lut/ifeanyi 15:09: [place] (I-CAPS 27 Medical ORAL) Branch MULTIVITAMI Yes Take by Un kathie N ORAL 7-29 mouth. ity of 15:09: [place] [address] Prevagen. [facility] Branch multivitami Yes 1{tbl} Take 1 Un kathie n tablet 7-29 tablet by ity of 14:26: mouth. [address] Branch multivitami Yes 1{tbl} Take 1 Un kathie n tablet 7-29 tablet by ity of 14:26: mouth. [address] Branch multivitami Yes 1{tbl} Take 1 Un kathie n tablet 7-29 tablet by ity of 14:26: mouth. [address] multivitami Yes 1{tbl} Take 1 Un kathie n tablet 7-29 tablet by ity of 14:26: mouth. [address] multivitami Yes 1{tbl} Take 1 Un kathie n tablet 7-29 tablet by ity of 14:26: mouth. [address] multivitami Yes 1{tbl} Take 1 Un kathie n tablet 7-29 tablet by ity of 14:26: mouth. [address] Branch multivitami Yes 1{tbl} Take 1 Un kathie n tablet 7-29 tablet by ity of 14:26: mouth. [address] Branch multivitami Yes 1{tbl} Take 1 Un kathie n tablet 7-29 tablet by ity of 14:26: mouth. [address] multivitami Yes 1{tbl} Take 1 Un kathie n tablet 7-29 tablet by ity of 14:26: mouth. [address] multivitami Yes 1{tbl} Take 1 Un kathie n tablet 7-29 tablet by ity of 14:26: mouth. [address] multivitami Yes 1{tbl} Take 1 Un kathie n tablet 7-29 tablet by ity of 14:26: mouth. [address] multivitami Yes 1{tbl} Take 1 Un kathie n tablet 7-29 tablet by ity of 14:26: mouth. [address] multivitami Yes 1{tbl} Take 1 Un kathie n tablet 7-29 tablet by ity of 14:26: mouth. [address] multivitami Yes 1{tbl} Take 1 Un kathie n tablet 7-29 tablet by ity of 14:26: mouth. [address] multivitami Yes 1{tbl} Take 1 Un kathie n tablet 7-29 tablet by ity of 14:26: mouth. [address] multivitami Yes 1{tbl} Take 1 Un kathie n tablet 7-29 tablet by ity of 14:26: mouth. [address] multivitami Yes 1{tbl} Take 1 Un kathie n tablet 7-29 tablet by ity of 14:26: mouth. [address] multivitami Yes 1{tbl} Take 1 Un kathie n tablet 7-29 tablet by ity of 14:26: mouth. [address] multivitami Yes 1{tbl} Take 1 Un kathie n tablet 7-29 tablet by ity of 14:26: mouth. [address] multivitami Yes 1{tbl} Take 1 Un kathie n tablet 7-29 tablet by ity of 14:26: mouth. [address] multivitami Yes 1{tbl} Take 1 Un kathie n tablet 7-29 tablet by ity of 14:26: mouth. [address] multivitami Yes 1{tbl} Take 1 Un kathie n tablet 7-29 tablet by ity of 14:26: mouth. [address] multivitami Yes 1{tbl} Take 1 Un kathie n tablet 7-29 tablet by ity of 14:26: mouth. [address] multivitami Yes 1{tbl} Take 1 Un kathie n tablet 7-29 tablet by ity of 14:26: mouth. [place] [address] Medical Branch multivitami Yes 1{tbl} Take 1 Un kathie n tablet 7-29 tablet by ity of 14:26: mouth. [place] [address] Medical Branch multivitami Yes 1{tbl} Take 1 Un kathie n tablet 7-29 tablet by ity of 14:26: mouth. [place] [address] Medical Branch multivitami Yes 1{tbl} Take 1 Un akthie n tablet 7-29 tablet by ity of 14:26: mouth. [place] [address] Medical Branch VENLAFAXINE Yes Take by Un [...] 14:26: [place] ORAL) Medical Branch methylPREDN Yes [id number] 84mg Take 21 Univers ISolone 3-21 9103 tablets by ity of (MEDROL, 00:00: mouth [place] EVANGELINA,) 4 mg 00 SEE-INSTRU Med ical tablets CTIONS. Branch follow package directions methylPREDN 2018- No [id number] 84mg Take 21 Univers ISolone 3-21 - 9103 tablets by ity o f (MEDROL, 00:00: 00:00 mouth [place] EVANGELINA,) 4 mg 00 :00 SEE-INSTRU Med ical tablets CTIONS. Branch follow package directions methylPREDN 2018- No [id number] 84mg Take 21 Univers ISolone 3-21 - [...] 50mg Take 1 Uni vers mg tablet 03-20- tablet by ity of 00:00: 00:00 mouth [...] mg Tab 0-20 ity of 00:00: [place] [facility] diazePAM 5 2017-02 Yes Univers mg tablet 0-20 ity of 00:00: [place] [facility] Oxycodone 2017-02 Yes Univers 10 mg Tab 0-20 ity of 00:00: [place] [facility] diazePAM 5 2017-02 Yes Univers mg tablet 0-20 ity of 00:00: [place] [facility] Oxycodone 2017-02 Yes Univers 10 mg Tab 0-20 ity of 00:00: [place] [facility] diazePAM 5 2017-02 Yes Univers mg tablet 0-20 ity of 00:00: [place] [facility] Oxycodone 2017-02 Yes Univers 10 mg Tab 0-20 ity of 00:00: [place] [address] Medical Branch diazePAM 5 2017-02 Yes Univers mg tablet 0-20 ity of 00:00: [place] [facility] Oxycodone 2017-02 Yes Univers 10 mg Tab 0-20 ity of 00:00: [place] [address] Medical Branch diazePAM 5 2017-02 Yes Univers mg tablet 0-20 ity of 00:00: [place] [facility] Oxycodone 2017-02 Yes Univers 10 mg Tab 0-20 ity of 00:00: [place] [address] Medical Branch diazePAM 5 2017-02 Yes Univers mg tablet 0-20 ity of 00:00: [place] [facility] Oxycodone 2017-02 Yes Univers 10 mg Tab 0-20 ity of 00:00: [place] [address] Medical Branch diazePAM 5 2017-02 Yes Univers mg tablet 0-20 ity of 00:00: [place] [facility] Oxycodone 2017-02 Yes Univers 10 mg Tab 0-20 ity of 00:00: [place] [facility] diazePAM 5 2017-02 Yes Univers mg tablet 0-20 ity of 00:00: [place] [facility] Oxycodone 2017-02 Yes Univers 10 mg Tab 0-20 ity of 00:00: [place] [facility] diazePAM 5 2017-02 Yes Univers mg tablet 0-20 ity of 00:00: [place] [facility] Oxycodone 2017-02 Yes Univers 10 mg Tab 0-20 ity of 00:00: [place] [facility] diazePAM 5 2017-02 Yes Univers mg tablet 0-20 ity of 00:00: [place] [facility] Oxycodone 2017-02 Yes Univers 10 mg Tab 0-20 ity of 00:00: [place] [address] Medical Branch diazePAM 5 2017-02 Yes Univers mg tablet 0-20 ity of 00:00: [place] [facility] Oxycodone 2018- Yes Univers 10 mg Tab 0-20 ity of 00:00: [place] [facility] diazePAM 5 2017- Yes Univers mg tablet 0-20 ity of 00:00: [place] [facility] Oxycodone 2017-02 Yes Univers 10 mg Tab 0-20 ity of 00:00: [place] [facility] diazePAM 5 2017-02 Yes Univers mg tablet 0-20 ity of 00:00: [place] [facility] Oxycodone 2017-02 Yes Univers 10 mg Tab 0-20 ity of 00:00: [place] [facility] diazePAM 5 2017-02 Yes Univers mg tablet 0-20 ity of 00:00: [place] [facility] Oxycodone 2017-02 Yes Univers 10 mg Tab 0-20 ity of 00:00: [place] [facility] diazePAM 5 2017-02 Yes Univers mg tablet 0-20 ity of 00:00: [place] [facility] Oxycodone 2017-02 Yes Univers 10 mg Tab 0-20 ity of 00:00: [place] [facility] diazePAM 5 2017-02 Yes Univers mg tablet 0-20 ity of 00:00: [place] [facility] Oxycodone 2017-02 Yes Univers 10 mg Tab 0-20 ity of 00:00: [place] [facility] diazePAM 5 2017-02 Yes Univers mg tablet 0-20 ity of 00:00: [place] [facility] Oxycodone 2017-02 Yes Univers 10 mg Tab 0-20 ity of 00:00: [place] [facility] rOPINIRole 2017- Yes TK 1 T PO Un kathie 0.5 mg 1-21 QHS ity of tablet 00:00: [place] [facility] rOPINIRole 2017- Yes TK 1 T PO Un kathie 0.5 mg 1-21 QHS ity of tablet 00:00: [place] [facility] rOPINIRole 2017- Yes TK 1 T PO Un kathie 0.5 mg 1-21 QHS ity of tablet 00:00: [place] [facility] rOPINIRole 2017- Yes TK 1 T PO Un kathie 0.5 mg 1-21 QHS ity of tablet 00:00: [place] [address] Medical Branch rOPINIRole 2017- Yes TK 1 T PO Un kathie 0.5 mg 1-21 QHS ity of tablet 00:00: [place] [facility] Branch rOPINIRole 2017- Yes TK 1 T PO Un kathie 0.5 mg 1-21 QHS ity of tablet 00:00: [place] [facility] rOPINIRole 2017 Yes TK 1 T PO Un kathie 0.5 mg 1-21 QHS ity of tablet 00:00: [place] [facility] rOPINIRole 2017- Yes TK 1 T PO Un kathie 0.5 mg 1-21 QHS ity of tablet 00:00: [place] [facility] rOPINIRole 2017- Yes TK 1 T PO Un kathie 0.5 mg 1-21 QHS ity of tablet 00:00: [place] [facility] rOPINIRole 2017- Yes TK 1 T PO Un kathie 0.5 mg 1-21 QHS ity of tablet 00:00: [place] [facility] rOPINIRole 2017- Yes TK 1 T PO Un kathie 0.5 mg 1-21 QHS ity of tablet 00:00: [place] [facility] Branch rOPINIRole 2017- Yes TK 1 T PO Un kathie 0.5 mg 1-21 QHS ity of tablet 00:00: [place] [facility] rOPINIRole 2017- Yes TK 1 T PO Un kathie 0.5 mg 1-21 QHS ity of tablet 00:00: [place] [facility] rOPINIRole 2017- Yes TK 1 T PO Un kathie 0.5 mg 1-21 QHS ity of tablet 00:00: [place] [facility] Branch rOPINIRole 2017- Yes TK 1 T PO Un kathie 0.5 mg 1-21 QHS ity of tablet 00:00: [place] [facility] Branch rOPINIRole 2017- Yes TK 1 T PO Un kathie 0.5 mg 1-21 QHS ity of tablet 00:00: [place] [facility] Branch rOPINIRole 2017- Yes TK 1 T PO Un kathie 0.5 mg 1-21 QHS ity of tablet 00:00: [place] [facility] rOPINIRole 2017- Yes TK 1 T PO Un kathie 0.5 mg 1-21 QHS ity of tablet 00:00: [place] [facility] VENLAFAXINE 2016- Yes Take by Un kathie HCL 1-29 mouth. ity of (EFFEXOR 15:47: [place] ORAL) 12 Medical Branch methylPREDN 2015-02 Yes 84mg Take 21 Uni vers ISolone 1-29 tablets by ity of (MEDROL, 00:00: mouth [place] EVANGELINA,) 4 mg 00 SEE-INSTRU Med ical tablets CTIONS. Branch follow package directions methylPREDN 2015-02- No 84mg Take 21 Un kathie ISolone 1-29 07-29 tablets by ity o f (MEDROL, 00:00: 00:00 mouth [place] EVANGELINA,) 4 mg 00 :00 SEE-INSTRU Med ical tablets CTIONS. Branch follow package directions methylPREDN 2015-02- No 84mg Take 21 Un kathie ISolone 1-29 07-29 tablets by ity o f (MEDROL, [...] No 10mg Take 1 Uni vers rine 1-11 07-29 tablet by ity of (FLEXERIL) 00:00: 00:00 mouth 3 Higinio as 10 mg 00 :00 (three) Medical tablet times Branch daily as needed for Muscle Spasms. cyclobenzap 2015-02- No 10mg Take 1 Uni vers rine 1-11 07-29 tablet by ity of (FLEXERIL) 00:00: 00:00 mouth 3 Higinio as 10 mg 00 :00 (three) Medical tablet times Branch daily as needed for Muscle Spasms. pramipexole 2015-02 Yes TK 2 TS PO Univers (MIRAPEX) 1 0-03 QHS ity of mg tablet 00:00: [place] 00 [facility] Branch pramipexole 2015-02 Yes TK 2 TS PO Univers (MIRAPEX) 1 0-03 QHS ity of mg tablet 00:00: [place] 00 [facility] pramipexole 2015-02 Yes TK 2 TS PO Univers (MIRAPEX) 1 0-03 QHS ity of mg tablet 00:00: [place] 00 [facility] Branch pramipexole 2015-02 Yes TK 2 TS PO Univers (MIRAPEX) 1 0-03 QHS ity of mg tablet 00:00: [place] 00 [facility] Branch pramipexole 2016- Yes TK 2 TS PO Univers (MIRAPEX) 1 0-03 QHS ity of mg tablet 00:00: [place] 00 Medical Branch pramipexole 2016 Yes TK 2 TS PO Univers (MIRAPEX) 1 0-03 QHS ity of mg tablet 00:00: [place] [facility] pramipexole 2016- Yes TK 2 TS PO Univers (MIRAPEX) 1 0-03 QHS ity of mg tablet 00:00: [place] [facility] Branch pramipexole 2016- Yes TK 2 TS PO Univers (MIRAPEX) 1 0-03 QHS ity of mg tablet 00:00: [place] [facility] Branch pramipexole 2016 Yes TK 2 TS PO Univers (MIRAPEX) 1 0-03 QHS ity of mg tablet 00:00: [place] [facility] Branch pramipexole 2016- Yes TK 2 TS PO Univers (MIRAPEX) 1 0-03 QHS ity of mg tablet 00:00: [place] 00 [facility] Branch pramipexole 2016 Yes TK 2 TS PO Univers (MIRAPEX) 1 0-03 QHS ity of mg tablet 00:00: [place] 00 [facility] Branch pramipexole 2016- Yes TK 2 TS PO Univers (MIRAPEX) 1 0-03 QHS ity of mg tablet 00:00: [place] 00 [facility] Branch pramipexole 2016- Yes TK 2 TS PO Univers (MIRAPEX) 1 0-03 QHS ity of mg tablet 00:00: [place] 00 [facility] Branch pramipexole 2016- Yes TK 2 TS PO Univers (MIRAPEX) 1 0-03 QHS ity of mg tablet 00:00: [place] 00 [facility] pramipexole 2016- Yes TK 2 TS PO Univers (MIRAPEX) 1 0-03 QHS ity of mg tablet 00:00: [place] 00 [facility] Branch pramipexole 2016 Yes TK 2 TS PO Univers (MIRAPEX) 1 0-03 QHS ity of mg tablet 00:00: [place] 00 [facility] Branch pramipexole 2016- Yes TK 2 TS PO Univers (MIRAPEX) 1 0-03 QHS ity of mg tablet 00:00: [place] 00 Medical Branch pramipexole 2016- Yes TK 2 TS PO Univers (MIRAPEX) 1 0-03 QHS ity of mg tablet 00:00: [place] [address] Medical Branch pramipexole 2016- Yes TK 2 TS PO Univers (MIRAPEX) 1 0-03 QHS ity of mg tablet 00:00: [address] Branch pramipexole 2016- Yes TK 2 TS PO Univers (MIRAPEX) 1 0-03 QHS ity of mg tablet 00:00: [address] Branch pramipexole 2016- Yes TK 2 TS PO Univers (MIRAPEX) 1 0-03 QHS ity of mg tablet 00:00: [address] Branch pramipexole 2016- Yes TK 2 TS PO Univers (MIRAPEX) 1 0-03 QHS ity of mg tablet 00:00: [address] Branch pramipexole 2016- Yes TK 2 TS PO Univers (MIRAPEX) 1 0-03 QHS ity of mg tablet 00:00: [address] Branch pramipexole 2016- Yes TK 2 TS PO Univers (MIRAPEX) 1 0-03 QHS ity of mg tablet 00:00: [address] Branch pramipexole 2016- Yes TK 2 TS PO Univers (MIRAPEX) 1 0-03 QHS ity of mg tablet 00:00: [address] Branch pramipexole 2016- Yes TK 2 TS PO Univers (MIRAPEX) 1 0-03 QHS ity of mg tablet 00:00: [address] Branch pramipexole 2016- Yes TK 2 TS PO Univers (MIRAPEX) 1 0-03 QHS ity of mg tablet 00:00: [place] [address] Medical Branch pramipexole 2016 Yes TK 2 TS PO Univers (MIRAPEX) 1 0-03 QHS ity of mg tablet 00:00: [address] MOBIC 15 MG 2015 Yes 1 tab po Me moria TABS 5-27 qd l 00:00: [place] 00 CYCLOBENZAP Yes 1 tab po q Memoria RINE HCL 5 5-27 8 hrs prn l MG TABS 00:00: muscle [place] 00 spasms MIRAPEX 1 2013-02 Yes daily Memoria MG TABS 2-05 l 00:00: EFFEXOR XR 2013- Yes Memoria GR21B-MEB 2-05 l 00:00: CELEBREX 2013-02 No 1 cap po Memor ia 100 MG CAPS 2-05 bid l 00:00: Vital Signs Vital Name Observation Time Observation Value Comments Source Systolic blood 2019-11-13 20:38:00 134 mm[Hg] Univer sity of pressure [facility] Branch Diastolic blood 2019-11-13 20:38:00 69 mm[Hg] Unive rsity of pressure [facility] Heart rate 2019-11-13 20:38:00 63 /min Universi ty of [facility] Body height 2019-11-13 20:38:00 172.7 cm Universi ty of [facility] Body weight 2019-11-13 20:38:00 80.287 kg Universi ty of [facility] BMI 2019-11-13 20:38:00 26.91 kg/m2 Universi ty of [facility] Systolic blood 2019-11-13 20:38:00 134 mm[Hg] Univer sity of pressure [facility] Branch Diastolic blood 2019-11-13 20:38:00 69 mm[Hg] Unive rsity of pressure [facility] Heart rate 2019-11-13 20:38:00 63 /min Universi ty of [facility] Body height 2019-11-13 20:38:00 172.7 cm Universi ty of [facility] Body weight 2019-11-13 20:38:00 80.287 kg Universi ty of [place] [facility] [place] BMI 2019-11-13 20:38:00 26.91 kg/m2 Universi ty of [facility] Branch Systolic blood 2019-07-18 13:04:00 133 mm[Hg] Univer sity of pressure [facility] Branch Diastolic blood 2019-07-18 13:04:00 69 mm[Hg] Unive rsity of pressure [facility] Heart rate 2019-07-18 13:04:00 73 /min Universi ty of [facility] Respiratory rate 2019-07-18 13:04:00 18 /min Univ ersity of [facility] Body height 2019-07-18 13:04:00 172.7 cm Universi ty of [place] [facility] Body weight 2019-07-18 13:04:00 79.379 kg Universi ty of [place] [facility] BMI 2019-07-18 13:04:00 26.61 kg/m2 Universi ty of [place] [facility] Systolic blood 2019-04-03 20:59:00 160 mm[Hg] Univer sity of pressure [place] [facility] Diastolic blood 2019-04-03 20:59:00 73 mm[Hg] Unive rsity of pressure [place] [facility] Heart rate 2019-04-03 20:59:00 74 /min Universi ty of [place] [facility] Respiratory rate 2019-04-03 20:59:00 20 /min Univ ersity of [place] [facility] Body height 2019-04-03 20:59:00 172.7 cm Universi ty of [place] [facility] Body weight 2019-04-03 20:59:00 79.379 kg Universi ty of [place] [facility] BMI 2019-04-03 20:59:00 26.61 kg/m2 Universi ty of [place] [facility] Systolic blood 2018-10-26 14:49:00 119 mm[Hg] Univer sity of pressure [place] [facility] Diastolic blood 2018-10-26 14:49:00 69 mm[Hg] Unive rsity of pressure [place] [facility] Heart rate 2018-10-26 14:49:00 70 /min Universi ty of [place] [facility] Body height 2018-10-26 14:49:00 172.7 cm Universi ty of [place] [facility] Body weight 2018-10-26 14:49:00 79.379 kg Universi ty of [place] [facility] BMI 2018-10-26 14:49:00 26.61 kg/m2 Universi ty of [place] [facility] Systolic blood 2018-09-03 14:23:00 127 mm[Hg] Univer sity of pressure [place] [facility] Diastolic blood 2018-09-03 14:23:00 80 mm[Hg] Unive rsity of pressure [place] [facility] Heart rate 2018-09-03 14:23:00 74 /min Universi ty of [place] [facility] Body temperature 2018-09-03 14:23:00 36.17 Adela Univ ersity of [place] [facility] Respiratory rate 2018-09-03 14:23:00 16 /min Univ ersity of [place] [facility] Body height 2018-09-03 14:23:00 172.7 cm Universi ty of [place] [facility] Body weight 2018-09-03 14:23:00 79.198 kg [facility] BMI 2018-09-03 14:23:00 26.55 kg/m2 [facility] Oxygen saturation in 2018-09-03 14:23:00 100 /min [facility] blood by [facility] Pulse oximetry Branch Weight 2014-07-02 16:18:31 [facility] [place] Height 2014-07-02 16:18:31 [facility] [place] Temperature Oral (F) 2014-07-02 16:18:31 98.4 F [facility] [place] Heart Rate 2014-07-02 16:18:31 [facility] [place] Systolic (mm Hg) 2014-07-02 16:18:31 Shahram rial [place] Diastolic (mm Hg) 2014-07-02 16:18:31 Mem orial [place] Respitory Rate 2014-07-02 16:18:31 Jeb al [place] Weight 2014-01-10 16:45:51 [facility] [place] Height 2014-01-10 16:45:51 [facility] [place] Temperature Oral (F) 2014-01-10 16:45:51 98.1 F [facility] [place] Heart Rate 2014-01-10 16:45:51 [facility] [place] Systolic (mm Hg) 2014-01-10 16:45:51 Shahram rial [place] Diastolic (mm Hg) 2014-01-10 16:45:51 Mem orial [place] Respitory Rate 2014-01-10 16:45:51 Jeb al [place] Procedures Procedure Date / Time Performing Clinician Source Performed ASSIGNMENT OF BENEFITS 2019-11-13 20:24:44 Doctor Unassigned, No [facility] MR KNEE LEFT WO 2019-05-01 21:25:30 Mary Da Silva [facility] [place] CONTRAST Medical Branch XR HIPS 2 VW LEFT 2018-10-26 14:56:20 Hesham Farrar [facility] CT ABDOMEN PELVIS W 2018-09-10 15:37:24 Alexus Smith [facility] CONTRAST A Medical Branch CONSENT/REFUSAL FOR 2018-09-10 14:07:24 [facility] Name Medical Branch ASSIGNMENT OF BENEFITS 2018-09-10 14:07:12 Doctor Unassigned, No [facility] VITAMIN B12, LEVEL 2018-09-03 16:08:00 Alexus Smith [facility] A Medical Branch FOLATE 2018-09-03 16:08:00 Alexus Smith [facility] Medical Branch FREE T4 2018-09-03 16:08:00 Alexus Smith [facility] THYROID STIMULATING 2018-09-03 16:08:00 Alexus Smith [facility] HORMONE Medical Branch BASIC METABOLIC PANEL 2018-09-03 16:08:00 Alexus Smith [facility] (NA, K, CL, CO2, [facility] GLUCOSE, BUN, CREATININE, CA) GLYCOSYLATED HEMOGLOBIN 2018-09-03 16:08:00 Alexus Smith [facility] (A1C) [facility] VITAMIN D, 25-OH 2018-09-03 16:08:00 Alexus Smith [facility] [place] FREE T3 2018-09-03 16:08:00 Alexus Smith [facility] [place] ASSIGNMENT OF BENEFITS 2018-09-03 14:10:30 Doctor Unassigned, No [facility] Encounters Start End Encounter Admission Attending Care Care Encounter Source Date/Time Date/Time Type Type Clinicians Facility Department ID 2020-12-17 2020-12-17 [id number] [facility]00 [facility] 2020-12-14 2020-12-14 [id number] [address] [facility] 00[facility]00 00[facility]00[facility]00 [facility] 2020-11-23 2020-11-23 [facility] [id number] DYAN [place] 00:00:00 00:00:00 [facility] 2020-11-16 2020-11-16 [facility] [id number] [facility] 2020-10-07 2020-10-07 Outpatient [facility] [id number] [place] 00:00:00 00:00:00 HANNAH [address] 2020-10-07 2020-10-07 Outpatient [facility] [id number] [place] 00:00:00 00:00:00 HANNAH [address] 2020-09-21 2020-09-21 [facility] [id number] [facility] 2020-08-12 2020-08-12 [facility] [id number] 2020-04-13 2020-04-13 [id number] Univers 00:00:00 00:00:00 Outreach [facility] [id number] i ty [facility] [id number] [place] [id number] [place] [address] 2020-04-04 2020-04-04 Laboratory Lab, Adc Fam Pob I [facility] [id number] Univers 12:49:28 13:09:28 [facility] [id number] [facility] [id number] Higinio as Professio [phone] [place] [address] Office [address] 2020-04-04 2020-04-04 Outpatient [facility] [id number] Univers 13:00:00 13:00:00 [id number] [facility] 2020-04-04 2020-04-04 [facility] [id number] Univers 13:00:00 13:00:00 [facility] 2020-03-20 2020-03-20 [facility] [id number] [facility] 2020-03-18 2020-03-18 [facility] [id number] [facility] 2020-03-10 2020-03-10 Outpatient [facility] [id number] [facility] 2020-03-10 2020-03-10 Outpatient [facility] [id number] [facility] 2020-01-28 2020-01-28 Outpatient GIST, [facility] [id number] [address] [place] [address] 00:00:00 00:00:[address] 2020-01-28 2020-01-28 Outpatient GIST, [facility] [id number] [address] [place] [address] 00:00:00 00:00:00 DARRIN [address] 2020-01-22 2020-01-22 Outpatient GIST, [facility] [id number] [place] 00:00:00 00:00:[address] 2020-01-20 2020-01-20 Outpatient [facility] [id number] [facility] 2020-01-20 2020-01-20 Outpatient [facility] [id number] [facility] 2020-01-14 2020-01-14 Outpatient [facility] [id number] [facility] 2019-12-25 2019-12-25 Outpatient cMcDonald [facility] MMG [id number] [place] 02:46:00 02:46:00 [id number] 2019-12-11 2019-12-11 Outpatient Sonido FARRAR [facility] [id number] Univers 13:00:00 13:00:00 [facility] [id number] [facility] 2019-12-11 Outpatient Sonido FARRAR [facility] [id number] Univers 00:00:00 00:00:00 HESHAM rausch [facility] 2019-12-11 2019-12-11 Outpatient Sonido FARRAR [facility] [id number] Univers 00:00:00 00:00:00 HESHAM [facility] 2019-11-27 2019-11-27 [facility] [id number]00 [facility] 2019-11-26 2019-11-26 [facility] [id number] [facility] 00[facility]00 Joshua león [facility] Clinics 2019-11-13 2019-11-13 [facility] 1.2.840.114 [id number] Univers 15:50:30 23:59:00 Encounter Hesham León [facility] 350.1.13.10 ity of Surgical 4.2.7.2.686 Higinio as Specialti [phone] Me dical es 809 [facility] 2019-11-13 2019-11-13 Office [facility] [id number] Univers 15:27:01 16:02:54 Visit Hesham León [facility] 350.1.13.10 it y of Surgical 4.2.7.2.686 Higinio as Specialti [phone] Me dical es 198 [facility] 2019-11-13 2019-11-13 Office [facility] [id number] 15:27:01 16:02:54 Visit Hesham León [facility] 350.1.13.10 Surgical 4.2.7.2.686 Specialti [phone] es 198 [place] 2019-11-13 2019-11-13 [facility] [id number] Univers 15:30:00 15:30:00 HESHAM ity [facility] 2019-11-13 2019-11-13 [facility] [id number] Univers 15:30:00 15:30:00 HESHAM [facility] 2019-11-13 2019-11-13 Orders Doctor DAVILA 1.2.840.114 [id number] Univers 00:00:00 00:00:00 Only Unassigned, MELISSA 350.1.13.10 ity of [place] [facility] 4.2.7.2.686 Higinio as [phone] [address] 2019-07-18 2019-07-18 Office [facility] [id number] Univers 08:04:03 08:18:07 Visit Hesham Howe 350.1.13.10 it y of Surgical 4.2.7.2.686 Higinio as Specialti [phone] Ia dical es 198 [facility] 2019-07-18 2019-07-18 [facility] [id number] Univers 08:00:00 08:00:00 HESHAM [id number] ity [facility] 2019-07-18 2019-07-18 [facility] [id number] Univers 08:00:00 08:00:00 HESHAM evonne [facility] 2019-07-10 2019-07-10 [facility]phone [facility] 1.2.840.114 [id number] Univers 00:00:00 00:00:00 Hesham [facility] 350.1.13.10 it y of Surgical 4.2.7.2.686 Higinio as Specialti [phone] Ia dical es 198 [facility] 2019-05-16 2019-05-16 [facility] 1.2.840.114 [id number] Univers 00:00:00 00:00:00 Hesham [facility] 350.1.13.10 it y of Surgical 4.2.7.2.686 Higinio as Specialti [phone] Ia dical es 198 [facility] 2019-05-16 2019-05-16 [facility] [id number] Univers 00:00:00 00:00:00 Hesham [facility] 350.1.13.10 it y of Surgical 4.2.7.2.686 Higinio as Specialti [phone] Ia dical es 198 [facility] 2019-05-01 2019-05-01 [facility] [id number] Univers 15:31:07 23:59:00 MARY ity [facility] 2019-05-01 2019-05-01 [facility] 1.2.840.114 [id number] Univers 15:00:00 23:59:00 Encounter Mary Lindsey [place] 350.1.13.10 ity of [place] 4.2.7.2.[address] [facility] [phone] [facility] [address] [place] 2019-05-01 2019-05-01 Outpatient R AVINASH [facility] [id number] Univers 00:00:00 00:00:00 MARY [id number] ity [facility] 2019-04-17 2019-04-17 Telephone [facility] 1.2.840.114 [id number] Univers 00:00:00 00:00:00 Hesham [facility] 350.1.13.10 it y of Surgical 4.2.7.2.686 Higinio as Specialti [phone] Ia dical es 198 [facility] 2019-04-10 2019-04-10 Telephone [facility] 1.2.840.114 [id number] Univers 00:00:00 00:00:00 Hesham [facility] 350.1.13.10 it y of Surgical 4.2.7.2.686 Higinio as Specialti [phone] Ia dical es 198 [facility] 2019-04-03 2019-04-03 [facility] 1.2.840.114 [id number] Univers 15:22:00 23:59:00 Encounter Hesham Howe 350.1.13.10 ity of Surgical 4.2.7.2.686 Higinio as Specialti [phone] Ia dical es 809 [facility] 2019-04-03 2019-04-03 Office [facility] [id number] Univers 14:52:27 15:33:26 Visit Hesham Howe 350.1.13.10 it y of Surgical 4.2.7.2.686 Higinio as Specialti [phone] Ia dical es 198 [facility] 2019-04-03 2019-04-03 [facility] [id number] Univers 15:15:00 15:15:00 HESHAM [id number] shalom [facility] 2019-04-03 2019-04-03 [facility] [id number] Univers 15:15:00 15:15:00 [facility] 2018-10-26 2018-10-26 [facility] 1.2.840.114 [id number] Univers 09:56:19 23:59:00 Encounter Hesham [facility] 350.1.13.10 ity of Surgical 4.2.7.2.686 Higinio as Specialti [phone] Ia dical es 809 [facility] 2018-10-26 2018-10-26 [facility] [id number] Univers 09:56:19 23:59:00 HESHAM itevonne [facility] 2018-10-26 2018-10-26 [facility] [id number] [facility] 09:49:05 10:42:23 Visit Hesham [facility] 350.1.13.10 it y of Surgical 4.2.7.2.686 Higinio as Specialti [phone] Ia dylanal es 198 [facility] 2018-09-10 2018-09-10 [facility] [id number] Univers 09:07:16 23:59:00 ALEXUS ity [facility] 2018-09-10 2018-09-10 [facility] 1.2.840.114 [id number] Univers 09:00:00 23:59:00 Encounter Alexus Cele [place] 350.1.13.10 ity of [place] 4.2.7.2.[address] [facility] [phone] [facility] [address] [place] 2018-09-06 2018-09-06 [facility] 1.2.840.114 [id number] Univers 00:00:00 00:00:00 Alexus [facility] 350.1.13.10 ity of [place] 4.2.7.2.686 Higinio as Professio [phone] Ia dical nal [address] [place] [address] 2018-09-03 2018-09-03 [employer]peater Technician 1, Adc Lab [facility] 1.2.840.114 [id number] Univers 10:53:02 11:08:02 Visit Alexus Smith 350.1. 13.10 ity of [place] 4.2.7.2.686 [facility] [phone] [facility] [address] 2018-09-03 2018-09-03 Office [facility] 1.2.840.114 [id number] Univers 09:12:21 10:31:56 Visit Alexus Arita 350.1.13.10 ity of [place] 4.2.7.2.686 [place] Profess[place] [phone] Ia dical nal 231 [facility] 2018-09-03 2018-09-03 Outpatient [facility] [id number] Univers 09:00:00 10:31:56 ALEXUSMALICK rausch [facility] 2018-09-03 2018-09-03 Telephone [facility] 1.2.840.114 [id number] Univers 00:00:00 00:00:00 Alexus Oakley [facility] 350.1.13.10 ity of [place] 4.2.7.2.686 Higinio as Professio [phone] [facility] [address] [place] [address] 2018-09-03 2018-09-03 Orders Doctor GIOVANNI 1.2.840.114 [id number] Univers 00:00:00 00:00:00 Only Unassigned, MELISSA 350.1.13.10 ity of [place] [facility] 4.2.7.2.686 Higinio as [phone] [address] 2018-04-26 2018-04-26 Outpatient LENI [facility] [id number] Univers 10:50:49 23:59:00 HESHAM [facility] 2016-07-21 2016-07-21 Appointmen [facility] [id number] Univers 14:00:00 14:00:00 t; Jh NAVARRETE M.D. [place] WILLIAM, Physici M.D. ans 2014-07-02 2014-07-02 Office nullFlavo Mischer [id number] Memoria 00:00:00 00:00:00 Visit r Neuroscienc [id number] Mckay Villavicencio 2014-01-10 2014-01-10 Office nullFlavo Mischer [id number] Memoria 00:00:00 00:00:00 Visit r Neuroscienc [id number] mau rasmussen [facility]aud Results Test Description Test Test Results [...] No torn meniscus or torn ligaments detected. [facility], Radiant Results Inft User - 05/01/2019 4:34 [...] Medica l 18:06:[address] ABDOMEN 2018-09- . No acute University of PELVIS W 05 [...] old healed fracture of the left hip. [place], Radiant Results Inft User - 09/10/2018 10:47 [...] nts VIT D 25OH (test code = 3491977769) 35 ng/mL 25-80 25-Hydroxy D3 (test code = 35.3 ng/mL 5356961005) 25-Hydroxy D2 (test code = <2.5 ng/mL 8680089178) MARVIN (test code = MARVIN) Test developed and characteristics determined by [facility]. [facility], [id number] 13:09:00 Test Item Value Reference Range Interpretation Comments VIT D 25OH (test 35 ng/mL 25-80 code = 0583756232) 25-Hydroxy D3 35.3 ng/mL (test code = 0830425004) 25-Hydroxy D2 <2.5 ng/mL (test code = 7666160293) MARVIN (test code = Test developed and MARVIN) characteristics determined by [facility] Laboratory Services. [facility] B12, [id number] 21:11:00 Test Item Value Reference Range Interpretation Comments VIT B12 (test code = 354 pg/mL 240-930 2248221964) MARVIN (test code = MARVIN) Biotin has been reported to cause a positive bias, interpret results relative to patient's use of biotin. Lab Interpretation (test Normal code = 45644-4) [facility]2019-07-29 21:11:00 Test Item Value Reference Range Interpretation Comments FOLATE SER (test code = 17.9 ng/mL 3-20 Biot in has been 6909285739) reported to cau se a positive bias, interpret resul ts relative to patient's use o f biotin. Lab Interpretation (test Normal code = 33449-1) [facility] B12, [id number] 21:11:00 Test Item Value Reference Range Interpretation Comments VIT B12 (test code = 354 pg/mL 240-930 1784748834) MARVIN (test code = MARVIN) Biotin has been reported to cause a positive bias, interpret results relative to patient's use of biotin. Lab Interpretation (test Normal code = 13544-8) [facility]-07[facility]29 21:11:00 Test Item Value Reference Range Interpretation Comments FOLATE SER (test code = 17.9 ng/mL 3-20 Biot in has been 7586360091) reported to cau se a positive bias, interpret resul ts relative to patient's use o f biotin. Lab Interpretation (test Normal code = 88503-4) [facility] (A1C)2018-09-03 19:13:00 Test Item Value Reference [...] Indicated Lab Interpretation Normal (test code = 28670-9) [facility] (A1C)2018-09-03 19:13:00 Test Item Value Reference [...] Indicated Lab Interpretation Normal (test code = 65875-6) [facility] [id number] 17:20:00 Test Item Value Reference Range Interpretation Comments TSH (test code = See_Comment [Automated message] 6622466058) The system Bebo generated this result transmitted ref erence range: 0.45 - 4 .70 mIU/L. The refe rence range was not u sed to interpret this result as normal/abnor mal. Lab Interpretation (test Normal code = 61019-1) [facility] [id number] 17:20:00 Test Item Value Reference Range Interpretation Comments TSH (test code = See_Comment [Automated message] 7557463129) The system Bebo generated this result transmitted ref erence range: 0.45 - 4 .70 mIU/L. The refe rence range was not u sed to interpret this result as normal/abnor mal. Lab Interpretation (test Normal code = 08711-7) [facility] [id number] 17:07:00 Test Item Value Reference Range Interpretation Comments FREE T4 (test code = 2446413567) 0.90 ng/dL 0.78-2.2 Lab Interpretation (test code = Normal 74075-5) [facility] 17:07:00 Test Item Value Reference Range Interpretation Comments FREE T4 (test code = 4353930104) 0.90 ng/dL 0.78-2.2 Lab Interpretation (test code = Normal 66161-4) [facility] 17:06:00 Test Item Value Reference Range Interpretation Comments FREE T3 (test code = 6681375587) 3.49 pg/mL 2.77-5.27 Lab Interpretation (test code = Normal 49836-5) [facility] [id number] 17:06:00 Test Item Value Reference Range Interpretation Comments FREE T3 (test code = 4841465602) 3.49 pg/mL 2.77-5.27 Lab Interpretation (test code = Normal 51716-2) [facility] METABOLIC PANEL (NA, K, CL, CO2, GLUCOSE, BUN, CREATININE, CA)2018-09-03 16:56:00 Test Item Value Reference Range Interpretation Comments NA (test code = 146 mmol/L 135-145 H 7797794679) K (test code = 5.1 mmol/L 3.5-5 H 5681864136) CL (test code = 107 mmol/L 98-108 2098725920) CO2 TOTAL (test code = 33 mmol/L 23-31 H 6990041263) AGAP (test code = 2-16 9353024625) BUN (test code = 12 mg/dL 7-23 4889607060) GLUCOSE (test code = 116 mg/dL 70-110 H 8554000012) CREATININE (test code = 0.64 mg/dL 0.5-1.04 4115960779) CALCIUM (test code = 9.4 mg/dL 8.6-10.6 8246060254) eGFR Calculation mL/min/1.73m2 (Non-) (test code = 1817649060) eGFR Calculation mL/min/1.73m2 () (test code = 8409606679) MARVIN (test code = MARVIN) Association of [...] tests). Lab Interpretation Abnormal (test code = 35828-3) [facility] METABOLIC PANEL (NA, K, CL, CO2, GLUCOSE, BUN, CREATININE, CA)2018-09-03 16:56:00 Test Item Value Reference Range Interpretation Comments NA (test code = 146 mmol/L 135-145 H 5092240406) K (test code = 5.1 mmol/L 3.5-5 H 7574472773) CL (test code = 107 mmol/L 98-108 6210932359) CO2 TOTAL (test code = 33 mmol/L 23-31 H 5395494761) AGAP (test code = 2-16 0863823575) BUN (test code = 12 mg/dL 7-23 7631584363) GLUCOSE (test code = 116 mg/dL 70-110 H 2908475147) CREATININE (test code = 0.64 mg/dL 0.5-1.04 9476824930) CALCIUM (test code = 9.4 mg/dL 8.6-10.6 8882752239) eGFR Calculation mL/min/1.73m2 (Non-) (test code = 2042653283) eGFR Calculation mL/min/1.73m2 () (test code = 0283958921) MARVIN (test code = MARVIN) Association of [...] tests). Lab Interpretation Abnormal (test code = 54178-4) [facility]"
--- NOTE | 2021-01-19 01:48 | ER ---
Nurse's Notes [facility] Name: Kim Mera Age: 75 yrs Sex: Female : 1945 Arrival Date: 01/19/2021 Time: 00:26 Bed Waiting Private MD: Diagnosis: Presentation: 01/19 00:33 Chief complaint: Patient states: low back pain x 5 days after lifting wheelchair. da3 Coronavirus screen: Vaccine status: Patient reports being unvaccinated. Ebola Screen: No symptoms or risks identified at this time. Initial Sepsis Screen: Does the patient meet any 2 criteria? No. Patient's initial sepsis screen is negative. Does the patient have a suspected source of infection? No. Patient's initial sepsis screen is negative. Risk Assessment: Do you want to hurt yourself or someone else? Patient reports no desire to harm self or others. Onset of symptoms was January 14, 2021 at 18:00. 00:33 Method Of Arrival: Ambulatory da3 00:33 Acuity: JUAN 3 da3 Triage Assessment: 00:33 General: Appears in no apparent distress. comfortable, Behavior is calm, cooperative. da3 Pain: Complains of pain in back Pain currently is 7 out of 10 on a pain scale. - Immunization history:: Client reports having NOT received the Covid vaccine. - Social history:: Smoking status: Patient denies any tobacco usage or history of. Vital Signs: 00:33 BP 130 / 66; Pulse 77; Resp 20; Temp 99.4; Pulse Ox 100% on R/A; Weight 79.38 kg; da3 Height 5 ft. 9 in. (175.26 cm); 00:33 Body Mass Index 25.84 (79.38 kg, 175.26 cm) da3 ED Course: 00:26 Patient arrived in ED. wm 00:33 Arm band placed on left wrist. da3 00:36 Triage completed. da3 01:48 Colt Kahn MD is Attending Physician. da3 Administered Medications: No medications were administered Outcome: 01:48 Patient left the ED. da3 Signatures: Gina De La Cruz Augustus Flores RN RN da3
[2021-01-19 01:59] VITALS: BP 130/66; TEMP 99.4; O2SAT 100
== END 2021-01-19 01:48 | disposition left against medical advice (07) ==
LOC: ER 00:23
DX: Z53.21 Procedure and treatment not carried out due to patient leaving prior to being seen by health care provider (principal)
CPT/HCPCS: 99281

== ENCOUNTER 2022-07-25 11:50 | Emergency (ER) | payer OTHER ==
--- OUTSIDE RECORDS SUMMARY | 2022-07-25 12:20 | XMS REPORT | Continuity of Care Document ---
:1945 Author Organization [facility] t Address [address] [facility] [address] [place] [id number] Care Team Providers Name Role Phone Dylan Davison DO [facility] Primary Care Physician [phone] Dylan Davison Attending Clinician Unavailable DARRIN WALTER Attending Clinician Unavailable Katheryn Bolivar RN Attending Clinician Unavailable Lizzette WRIGHT, Wilver Perdomo Attending Clinician Chata Padron APRN Attending Clinician [phone] Jordin WRIGHT, Mai Abraham Attending Clinician TESS RENEE Attending Clinician Unavailable Leonidas Gama RN Attending Clinician Unavailable HANNAH MEDINA Attending Clinician Unavailable Aiden Sultana DO Attending Clinician Lab, Adc Fam Pob I Attending Clinician Unavailable Carolin Hagen Attending Clinician CAROLIN BRADFORD Attending Clinician Unavailable Edgar Attending Clinician Unavailable HESHAM FARRAR Attending Clinician Unavailable eHsham Farrar MD Attending Clinician Doctor Unassigned, Amaya Attending Clinician Unavailable MARY DA SILVA Attending Clinician Unavailable Mary Barnes Attending Clinician ALEXUS SMITH Attending Clinician Unavailable Alexus Smith MD Attending Clinician [phone], Adc Lab Attending Clinician Unavailable ROSALBA JONES M.D. Attending Clinician Unavailable DARRIN WALTER Admitting Clinician Unavailable Edgar Admitting Clinician Unavailable MARY DA SILVA Admitting Clinician Unavailable ALEXUS SMITH Admitting Clinician Unavailable Payers Payer Name Policy Type Policy Effective Date Expiration Date Sour ce Number MEDICARE PART A [id number] 2008 AND B 00:00:00 MEDICARE NOVITAS MB [id number] 2008 [facility] AETNA MEDICARE C1 [id number] [facility] C1 [id number] [facility] INS [place] (Aetna) - [facility] C1 [id number] [facility] INS [place] (Aetna) - [facility] MEDICARE NOVITAS [id number] 2008 [facility] 00:00:00 - [facility] AETNA MEDICARE C1 [id number] [facility] C1 [id number] [facility] INS CO (Aetna) - [facility] AETNA MEDICARE C1 [id number] [facility] MEDICARE NOVITAS [id number] 2008 [facility] 00:00:00 - [facility] AETNA MEDICARE C1 [id number] [facility] - [facility] C1 [id number] [facility] INS CO (Aetna) - [facility] MEDICARE NOVITAS MB [id number] 2008 [facility] 00:00:00 - [facility] AETNA MEDICARE C1 [id number] [facility] MEDICARE NOVITAS MB [id number] 2008 [facility] 00:00:00 - [facility] CONTINENTAL LIFE C1 [id number] [facility] INS CO (Aetna) - [facility] AETNA (MEDICARE [id number] REPLACEMENT PPO) 00:00:00 AETNA INDEMNITY [id number] 2019 00:00:00 Problems Condition Condition Condition Status Onset Resolution Last Treating Co mments Source Name Details Category Date Date Treatment Clinician Date Lumbar Lumbar Disease Active Methodi radiculopa radiculopa 2-22 st thy thy 00:00: Hospita 00 l Chronic Chronic Disease Active Methodi pain of pain of 1-12 st left knee left knee 00:00: Hosp inés 00 l Primary Primary Disease Active Methodi localized localized 1-12 st osteoarthr osteoarthr 00:00: Ho spita itis of itis of 00 l left knee left knee Cervical Cervical Disease Active Metho di stenosis stenosis 2-08 st of spinal of spinal 00:00: Hosp inés canal canal 00 l STATUS STATUS Condition Active 2013-022014-07-02 Me casey POST POST 2-05 11:18:31 l HYSTERECTO HYSTERECTO 00:00: He mayur MY MY Active 00 01/10/2014 Condition 07/02/2014 [facility] LUMBAR LUMBAR Condition Active 2013-022014-07-02 Me morijose david RADICULOPA RADICULOPA 2-05 11:18:31 l THY THY 00:00: Saud Active 00 01/10/2014 Condition 07/02/2014 [facility] LOW BACK LOW BACK Condition Active 2013-022014-07-02 Memoria PAIN PAIN 2-05 11:18:31 l Active 00:00: Saud 01/10/2014 00 Condition 07/02/2014 [facility] LUMBAR LUMBAR Condition Active 2013-022014-07-02 Me moria SPINAL SPINAL 2- 11:18:31 l STENOSIS STENOSIS 00:00: Ivan n Active 00 01/10/2014 Condition 07/02/2014 [facility] DEGENERATI DEGENERAT Condition Active 2013-022014-07-02 Memoria VE DISC CHAU DISC 2- 11:18:31 l DISEASE, DISEASE, 00:00: Ivan n LUMBAR LUMBAR 00 SPINE SPINE Active 01/10/2014 Condition 07/02/2014 [facility] No known No known Disease Unive rs active active ity of problems problems [facility] Branch Cervical Cervical Problem Active [facility] spine pain spine pain [facility] Lumbar Lumbar Problem Active [facility] spine pain spine pain Ph [facility] ans Frequency Frequency Problem Com [facility] [id number] Constipati Problem Com mon on, Spirit unspecifie - CHI d constipati [facility] [id number] Memory Problem Common changes [facility] [id number] ZAINAB Problem Common (generaliz [facility] ed anxiety - CHI disorder) [facility] [id number] Mixed Problem Common hyperlipid [facility] emia [facility] [id number] Pulmonary Problem Comm on emphysema, Spirit unspecifie - CHI d emphysema [facility] [id number] Chronic Problem Commo n pain [facility] syndrome [facility] [id number] Gastro-eso Problem Co mmon phageal Spirit reflux - [facility] disease [facility] esophagiti [facility] [id number] Pancreatic Problem Comm on abnormalit [facility] y [facility] [id number] Current Problem Common moderate Spirit episode of - CHI major depressive 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 - [facility] Allergies, Adverse Reactions, Alerts Allergy Allergy Status Severity Reaction(s) Onset Inactive Treating Comm ents Source Name Type Date Date Clinician Morphine Propensi Active Rash Method i ty to 03-06 adverse 00:00: Hospita reaction 00 l s to drug Morphine Propensi Active Rash 2015-02 Univer s ty to 02-16 ity of adverse 00:00: [place] reaction 00 Medical s Branch MORPHINE DRUG Active Low Rash 2015-02 Univers INGREDI 02-16 ity of 00:00: [place] [address] Medical Branch TAPE TAPE Active 2013-02 Memoria 2-05 l 00:00: [place] 00 LATEX LATEX Active 2013-02 Memoria 2-05 l 00:00: [place] 00 Hydrocod Propensi Active Hives itchy Method i one ty to 5-15 st adverse 00:00: Hospita reaction 00 l s to drug Hydrocod Propensi Active Hives itchy Univer s one ty to 5-15 ity of adverse 00:00: [place] reaction 00 Medical s Branch HYDROCOD DRUG Active High Hives Univers ONE INGREDI 5-15 ity of 00:00: [place] 00 Medical Branch morphine morphine Active Rash Common [facility] [id number] Drug Active Rash Common allergy [facility] Family History Family Member Diagnosis Comments Start Date Stop Date Source Natural father Heart disease [facility] Natural mother Cancer [facility] [place] Natural mother Pancreatic cancer [facility] Social History Social Habit Start Date Stop Date Quantity Comments Source Gender identity 2020-10-05 Identifies as Method ist 09:02:25 female gender Hospital (finding) Sexual orientation 2020-10-05 Method ist 09:02:25 Hospital Exposure to Not sure University of SARS-CoV-2 (event) [facility] History of tobacco Cigarette Smoker Muslim use Hospital Sex Assigned At [facility] Alcohol intake 2022-04-01 2022-04-01 Current drinker [facility] dist 00:00:00 00:00:00 of alcohol Hospital (finding) History of Social 2022-04-01 2022-04-[address] function 00:00:00 00:00:00 Hospital Cigarettes smoked 2022-03-23 2022-03-[address] current (pack per 00:00:00 00:00:00 Hospita l day) - Reported Cigarette 2022-03-23 2022-03-23 Muslim pack-years 00:00:00 00:00:00 Hospital Tobacco Comment 2022-03-23 2022-03-23 quit 40 years ago Me [facility]ist 00:00:00 00:00:00 Hospital Tobacco use and 2022-03-23 2022-03-23 Smokeless tobacco Me [facility] exposure 00:00:00 00:00:00 non-user Hospital Smoking Status Start Date Stop Date Source Ex-smoker 2022-03-23 00:00:00 2022-03-23 00:00:00 [facility] Never smoker [facility] Medications Ordered Filled Start Stop Current Ordering Indication Dosage Frequency Signature Comments Components Source Medication Medication Date Date Medication? Clinician (SIG) Name Name pramipexole Yes 1.5mg QD Take 1.5 M ethodi (MIRAPEX) 1 2-[address] MG tablet 11:34: mouth Hospita 03 nightly. l multivitami 0 Yes 1{tbl} QD Take 1 Me thodi n 2-[address] (THERAGRAN) 11:34: mouth Hospi ta tablet 03 daily. l pramipexole Yes 1.5mg QD Take 1.5 M ethodi (MIRAPEX) 1 2-[address] MG tablet 11:34: mouth Hospita 03 nightly. l multivitami Yes 1{tbl} QD Take 1 Me thodi n 2-[address] (THERAGRAN) 11:34: mouth Hospi ta tablet 03 daily. l traMADoL 0 Yes 50mg Q6H Take 1 Methodi (ULTRAM) 50 2-10 tablet (50 st mg tablet 00:00: mg total) Hos fausto 00 by mouth l every 6 (six) hours as needed. traMADoL 0 Yes 50mg Q6H Take 1 Methodi (ULTRAM) 50 2-10 tablet (50 st mg tablet 00:00: mg total) Hos fausto 00 by mouth l every 6 (six) hours as needed. Lactulose Lactulose 2021-02- No 15{ml} BID Lactulose 10 GM/15ML 10 GM/15ML 02-08 10 GM/15ML 00:00: 00:00 00 :00 Lactulose Lactulose 2021-02- No 15{ml} BID Lactulose 10 GM/15ML 10 GM/15ML 02-08 10 GM/15ML 00:00: 00:00 00 :00 pramipexole 0 Yes 1mg QD Take 1 mg M ethodi (MIRAPEX) 1 5-[address] MG tablet 07:37: nightly. Hosp inés 08 l multivitami 2022-0 Yes 1{tbl} QD Take 1 Me thodi n 5-[address] (THERAGRAN) 07:37: mouth Hospi ta tablet 08 daily. l atorvastati 2021-0 Yes 10mg QD Take 1 Meth floyd n (LIPITOR) 2-15 tablet (10 st 10 mg 00:00: mg total) Hospita tablet 00 by mouth l nightly. atorvastati 2021-0 Yes 10mg QD Take 1 Meth floyd n (LIPITOR) 2-15 tablet (10 st 10 mg 00:00: mg total) Hospita tablet 00 by mouth l nightly. atorvastati 2021-0 Yes 10mg QD Take 10 mg Methodi n (LIPITOR) 2-[address] 10 mg 00:00: daily. Hospita tablet 00 l Toradol Toradol 2020-02 No 15mg Common (Ketorolac) (Ketorolac) 2-14 S pirit 00:00: - [facility] 2020-02 No 40mg Common (Triamcinol (Triamcinol 2-14 S pirit one) one) 00:00: - [facility] Toradol Toradol 2020-02 No 15mg Common (Ketorolac) (Ketorolac) 2-14 S pirit 00:00: - [facility] 2020-02 No 40mg Common (Triamcinol (Triamcinol 2-14 S pirit one) one) 00:00: - [facility] Toradol Toradol 2020-02 No 15mg Common (Ketorolac) (Ketorolac) 2-14 S pirit 00:00: - [facility] 2020-02 No 40mg Common (Triamcinol (Triamcinol 2-14 S pirit one) one) 00:00: - [facility] Toradol Toradol 2020-02 No 15mg Common (Ketorolac) (Ketorolac) 2-14 S pirit 00:00: - [facility] Kenalog 2020-02 No 40mg Common (Triamcinol (Triamcinol 2-14 S pirit one) one) 00:00: - [facility] Toradol Toradol 2020-02 No 15mg Common (Ketorolac) (Ketorolac) 2-14 S pirit 00:00: - CHI 00 [facility] 2020-02 No 40mg Common (Triamcinol (Triamcinol 2-14 S pirit one) one) 00:00: - CHI 00 [facility] Toradol Toradol 2020-02 No 15mg Common (Ketorolac) (Ketorolac) 2-14 S pirit 00:00: - CHI 00 [facility] 2020-02 No 40mg Common (Triamcinol (Triamcinol 2-14 S pirit one) one) 00:00: - CHI 00 [facility] Toradol Toradol 2020-02 No 15mg Common (Ketorolac) (Ketorolac) 2-14 S pirit 00:00: - CHI 00 [facility] 2020-02 No 40mg Common (Triamcinol (Triamcinol 2-14 S pirit one) one) 00:00: - CHI 00 [facility] Toradol Toradol 2020-02 No 15mg Common (Ketorolac) (Ketorolac) 2-14 S pirit 00:00: - CHI 00 [facility] 2020-02 No 40mg Common (Triamcinol (Triamcinol 2-14 S pirit one) one) 00:00: - CHI 00 [facility] Toradol Toradol 2020-02 No 15mg Common (Ketorolac) (Ketorolac) 2-14 S pirit 00:00: - CHI 00 [facility] 2020-02 No 40mg Common (Triamcinol (Triamcinol 2-14 S pirit one) one) 00:00: - CHI 00 [facility] Toradol Toradol 2020-02 No 15mg Common (Ketorolac) (Ketorolac) 2-14 S pirit 00:00: - CHI 00 [facility] 2020-02 No 40mg Common (Triamcinol (Triamcinol 2-14 S pirit one) one) 00:00: - CHI 00 [facility] Toradol Toradol 2020-02 No 15mg Common (Ketorolac) (Ketorolac) 2-14 S pirit 00:00: - CHI 00 [facility] Kenalog Kenalog 2020-02 No 40mg Common (Triamcinol (Triamcinol 2-14 S pirit one) one) 00:00: - [facility] Cyclobenzap Cyclobenzap 2020-02- No 1{table QD Cyclobenza rine HCl 10 rine HCl 10 03-22 t_at_be estelita HCl MG MG 00:00: 00:00 dtime_a 10 MG 00 :00 s_neede d} Cyclobenzap Cyclobenzap 2020-02- No 1{table QD Cyclobenza rine HCl 10 rine HCl 10 03-22 t_at_be estelita HCl MG MG 00:00: 00:00 dtime_a 10 MG 00 :00 s_neede d} Effexor XR Effexor XR No 1{capsu QD Effexor XR 75 MG 75 MG 7-07 le_with 75 MG 00:00: _food} Effexor XR Effexor XR No 1{capsu QD Effexor XR 75 MG 75 MG 7-07 le_with 75 MG 00:00: _food} 00 methylPREDN 2019- Yes 84mg Take 21 Uni vers ISolone 0-07 tablets by ity of (MEDROL, 00:00: mouth [place] EVANGELINA,) 4 mg 00 SEE-INSTRU Med ical tablets CTIONS. Branch follow package directions methylPREDN 2019- Yes 84mg Take 21 Uni vers ISolone [...] tablets by ity of (MEDROL, 00:00: mouth EVANGELINA,) 4 mg 00 SEE-INSTRU Med ical [...] s mg tablet 07-09 ity of 00:00: [place] [facility] traMADol 50 2020-0 Yes Univer s mg tablet 07-09 ity of 00:00: [place] [facility] traMADol 50 2020-0 Yes Univer s mg tablet 07-09 ity of 00:00: [place] [facility] traMADol 50 2020-0 Yes Univer s mg tablet 07-09 ity of 00:00: [place] [facility] traMADol 50 2020-0 Yes Univer s mg tablet 07-09 ity of 00:00: [place] [facility] DICLOFENAC 2020-0 Yes [id number] TAKE 1 U nivers 75 mg EC 4-10 TABLET BY ity of tablet 00:00: [facility] TWICE Medical DAILY WITH Branch MEALS DICLOFENAC 2020-0 Yes [id number] TAKE 1 U nivers 75 mg EC 4-10 TABLET BY ity of tablet 00:00: [facility] TWICE Medical DAILY WITH Branch MEALS DICLOFENAC 2020-0 Yes [id number] TAKE 1 U nivers 75 mg EC 4-10 TABLET BY ity of tablet 00:00: [facility] TWICE Medical DAILY WITH Branch MEALS DICLOFENAC 2020-0 Yes [id number] TAKE 1 U nivers 75 mg EC 4-10 TABLET BY ity of tablet 00:00: [facility] TWICE Medical DAILY WITH Branch MEALS DICLOFENAC 2020-0 Yes [id number] TAKE 1 U nivers 75 mg EC 4-10 TABLET BY ity of tablet 00:00: [facility] TWICE Medical DAILY WITH Branch MEALS DICLOFENAC 2020-0 Yes [id number] TAKE 1 U nivers 75 mg EC 4-10 TABLET BY ity of tablet 00:00: [facility] TWICE Medical DAILY WITH Branch MEALS DICLOFENAC 2020-0 Yes [id number] TAKE 1 U nivers 75 mg EC 4-10 TABLET BY ity of tablet 00:00: [facility] TWICE Medical DAILY WITH Branch MEALS DICLOFENAC 2020-0 Yes [id number] TAKE 1 U nivers 75 mg EC 4-10 TABLET BY ity of tablet 00:00: [facility] TWICE Medical DAILY WITH Branch MEALS DICLOFENAC 2020-0 Yes [id number] TAKE 1 U nivers 75 mg EC 4-10 TABLET BY ity of tablet 00:00: [facility] TWICE Medical DAILY WITH Branch MEALS DICLOFENAC 2020-0 Yes [id number] TAKE 1 U nivers 75 mg EC 4-10 TABLET BY ity of tablet 00:00: [facility] 00 TWICE Medical DAILY WITH Branch MEALS DICLOFENAC 2020-0 Yes [id number] TAKE 1 U nivers 75 mg EC [...] o f tablet 00:00: 00:00 mouth 00 : (two) Medical times Branch daily with meals. diclofenac 2020-0 Yes [id number] 75mg Take 1 U nivers 75 mg EC 3-04 tablet by ity of tablet 00:00: [facility] (two) Medical times Branch daily with meals. diclofenac 2020-0 Yes [id number] 75mg Take 1 U nivers 75 mg EC 3-04 tablet by ity of tablet 00:00: [facility] (two) Medical times Branch daily with meals. diclofenac 2020-0 Yes [id number] 75mg Take 1 U nivers 75 mg EC 3-04 tablet by ity of tablet 00:00: [facility] (two) Medical times Branch daily with meals. diclofenac 2020-0 Yes [id number] 75mg Take 1 U nivers 75 mg EC 3-04 tablet by ity of tablet 00:00: [facility] (two) Medical times Branch daily with meals. diclofenac 2020-0 Yes [id number] 75mg Take 1 U nivers 75 mg EC 3-04 tablet by ity of tablet 00:00: [facility] (two) Medical times Branch daily with meals. diclofenac 2020-0 Yes [id number] 75mg Take 1 U nivers 75 mg EC 3-04 tablet by ity of tablet 00:00: mouth (two) Medical times Branch daily with meals. diclofenac 2020-0 Yes [id number] 75mg Take 1 U nivers 75 mg EC 3-04 tablet by ity of tablet 00:00: [facility] (two) Medical times Branch daily with meals. diclofenac 2020-0 Yes [id number] 75mg Take 1 U nivers 75 mg EC 3-04 tablet by ity of tablet 00:00: [facility] (two) Medical times Branch daily with meals. diclofenac 2020-0 Yes [id number] 75mg Take 1 U nivers 75 mg EC 3-04 tablet by ity of tablet 00:00: mouth 2 [place] (two) Medical times Branch daily with meals. diclofenac 2020-0 Yes [id number] 75mg Take 1 U nivers 75 mg EC 3-04 tablet by ity of tablet 00:00: mouth 2 [place] (two) Medical times Branch daily with meals. diclofenac 2020-0 Yes [id number] 75mg Take 1 U nivers 75 mg EC 3-04 tablet by ity of tablet 00:00: mouth 2 [place] (two) Medical times Branch daily with meals. diclofenac 2020-0 Yes [id number] 75mg Take 1 U nivers 75 mg EC 3-04 tablet by ity of tablet 00:00: mouth 2 [place] (two) Medical times Branch daily with meals. diclofenac 2020-0 Yes [id number] 75mg Take 1 U nivers 75 mg EC 3-04 tablet by ity of tablet 00:00: mouth 2 [place] (two) Medical times Branch daily with meals. diclofenac 2020-0 Yes [id number] 75mg Take 1 U nivers 75 mg EC 3-04 tablet by ity of tablet 00:00: mouth 2 [place] (two) Medical times Branch daily with meals. diclofenac 2020-0 Yes [id number] 75mg Take 1 U nivers 75 mg EC 3-04 tablet by ity of tablet 00:00: mouth 2 [place] (two) Medical times Branch daily with meals. ibuprofen 2020-0 Yes 600mg Take 600 Uni vers 600 mg 2-26 mg by ity of tablet 21:00: mouth. [address] ibuprofen 2020-0 Yes 600mg Take 600 Uni vers 600 mg 2-26 mg by ity of tablet 21:00: mouth. [address] ibuprofen 2020-0 Yes 600mg Take 600 Uni vers 600 mg 2-26 mg by ity of tablet 21:00: mouth. [address] ibuprofen 2020-0 Yes 600mg Take 600 Uni vers 600 mg 2-26 mg by ity of tablet 21:00: mouth. [address] ibuprofen 2020-0 Yes 600mg Take 600 Uni vers 600 mg 2-26 mg by ity of tablet 21:00: mouth. [address] ibuprofen 2020-0 Yes 600mg Take 600 Uni vers 600 mg 2-26 mg by ity of tablet 21:00: mouth. [address] ibuprofen 2020-0 Yes 600mg Take 600 Uni vers 600 mg 2-26 mg by ity of tablet 21:00: mouth. [address] ibuprofen 2020-0 Yes 600mg Take 600 Uni vers 600 mg 2-26 mg by ity of tablet 21:00: mouth. [address] ibuprofen 2020-0 Yes 600mg Take 600 Uni vers 600 mg 2-26 mg by ity of tablet 21:00: mouth. [address] ibuprofen 2020-0 Yes 600mg Take 600 Uni vers 600 mg 2-26 mg by ity of tablet 21:00: mouth. [address] ibuprofen 2020-0 Yes 600mg Take 600 Uni vers 600 mg 2-26 mg by ity of tablet 21:00: mouth. [address] ibuprofen 2020-0 Yes 600mg Take 600 Uni vers 600 mg 2-26 mg by ity of tablet 21:00: mouth. [address] ibuprofen 2020-0 Yes 600mg Take 600 Uni vers 600 mg 2-26 mg by ity of tablet 21:00: mouth. [address] ibuprofen 2020-0 Yes 600mg Take 600 Uni vers 600 mg 2-26 mg by ity of tablet 21:00: mouth. [address] ibuprofen 2020-0 Yes 600mg Take 600 Uni vers 600 mg 2-26 mg by ity of tablet 21:00: mouth. [address] ibuprofen 2020-0 Yes 600mg Take 600 Uni vers 600 mg 2-26 mg by ity of tablet 21:00: mouth. [address] ibuprofen 2020-0 Yes 600mg Take 600 Uni vers 600 mg 2-26 mg by ity of tablet 21:00: mouth. [address] ibuprofen 2020-0 Yes 600mg Take 600 Uni vers 600 mg 2-26 mg by ity of tablet 21:00: mouth. [address] diclofenac 2020-0 Yes [id number] 75mg Take 1 U nivers 75 mg EC 2-26 tablet by ity of tablet 00:00: mouth 2 [place] [address] (two) Medical times [place] daily with meals. diclofenac 2020-0 Yes [id number] 75mg Take 1 U nivers 75 mg EC 2-26 tablet by ity of tablet 00:00: mouth 2 [place] [address] (two) Medical times [place] daily with meals. diclofenac 2020-0 Yes [id number] 75mg Take 1 U nivers 75 mg EC 2-26 tablet by ity of tablet 00:00: mouth 2 [place] 00 (two) Medical times [place] daily with meals. diclofenac 2020-0 2020- No [id number] 75mg Take 1 Univers 75 mg EC 2-26 03-04 tablet by ity o f tablet 00:00: 00:00 mouth 2 [place] 00 :00 (two) [facility] daily with meals. SERTraline 2020-0 Yes Univers 50 mg 2-07 ity of tablet 00:00: [address] SERTraline 2020-0 Yes Univers 50 mg 2-07 ity of tablet 00:00: [address] SERTraline 2020-0 Yes Univers 50 mg 2-07 ity of tablet 00:00: [address] SERTraline 2020-0 Yes Univers 50 mg 2-07 ity of tablet 00:00: [address] SERTraline 2020-0 Yes Univers 50 mg 2-07 ity of tablet 00:00: [address] SERTraline 2020-0 Yes Univers 50 mg 2-07 ity of tablet 00:00: [address] SERTraline 2020-0 Yes Univers 50 mg 2-07 ity of tablet 00:00: [address] SERTraline 2020-0 Yes Univers 50 mg 2-07 ity of tablet 00:00: [address] SERTraline 2020-0 Yes Univers 50 mg 2-07 ity of tablet 00:00: [address] SERTraline 2020-0 Yes Univers 50 mg 2-07 ity of tablet 00:00: [address] SERTraline 2020-0 Yes Univers 50 mg 2-07 ity of tablet 00:00: [address] SERTraline 2020-0 Yes Univers 50 mg 2-07 ity of tablet 00:00: [address] SERTraline 2020-0 Yes Univers 50 mg 2-07 ity of tablet 00:00: [address] SERTraline 2020-0 Yes Univers 50 mg 2-07 ity of tablet 00:00: [address] SERTraline 2020-0 Yes Univers 50 mg 2-07 ity of tablet 00:00: [address] SERTraline 2020-0 Yes Univers 50 mg 2-07 ity of tablet 00:00: [address] SERTraline 2020-0 Yes Univers 50 mg 2-07 ity of tablet 00:00: [address] SERTraline Yes Univers 50 mg 2-07 ity of tablet 00:00: [address] iohexol 2019- No 25mL 25 mL, Univers (OMNIPAQUE 8-05 08-05 Oral, ity of 350 BULK) 14:30: 14:30 ONCE, 1 [place] 25 [place] 00 :00 dose, [facility] Medical 09/10/18 at [place] 0930, Routine cholestyram Yes [id number] DISSOLVE 1 Univers ine light 8-04 SCOOPFUL ity of (CHOLESTYRA 00:00: IN [place]UID [place] MINE LIGHT) 00 FOUR TIMES Me dical 4 gram DAILY. [place] powder cholestyram Yes [id number] DISSOLVE 1 Univers ine light 8-04 SCOOPFUL ity of (CHOLESTYRA 00:00: [place] FLUID [place] MINE LIGHT) 00 FOUR TIMES Me dical 4 gram DAILY. [place] powder cholestyram Yes [id number] DISSOLVE 1 Univers ine light 8-04 SCOOPFUL ity of (CHOLESTYRA 00:00: [place] FLUID [place] MINE LIGHT) 00 FOUR TIMES Me dical 4 gram DAILY. [place] powder cholestyram Yes [id number] DISSOLVE 1 Univers ine light 8-04 SCOOPFUL ity of (CHOLESTYRA 00:00: IN FLUID [place] MINE LIGHT) 00 FOUR TIMES Me dical 4 gram DAILY. [place] powder cholestyram Yes [id number] DISSOLVE 1 Univers ine light 8-04 SCOOPFUL ity of (CHOLESTYRA 00:00: IN FLUID [place] MINE LIGHT) 00 FOUR TIMES Me dical 4 gram DAILY. Branch powder cholestyram Yes [id number] DISSOLVE 1 Univers ine light 8-04 SCOOPFUL ity of (CHOLESTYRA 00:00: IN FLUID [place] MINE LIGHT) 00 FOUR TIMES Me dical 4 gram DAILY. Branch powder cholestyram Yes [id number] DISSOLVE 1 [facility] ine light 8-04 SCOOPFUL ity of (CHOLESTYRA 00:00: IN FLUID [place] MINE LIGHT) 00 FOUR TIMES Me dical 4 gram DAILY. Branch powder cholestyram Yes [id number] DISSOLVE 1 [facility] ine light 8-04 SCOOPFUL ity of (CHOLESTYRA 00:00: IN FLUID [place] MINE LIGHT) 00 FOUR TIMES Me dical 4 gram DAILY. Branch powder cholestyram Yes [id number] DISSOLVE 1 Univers ine light 8-04 SCOOPFUL ity of (CHOLESTYRA 00:00: IN FLUID [place] MINE LIGHT) 00 FOUR TIMES Me dical 4 gram DAILY. Branch powder cholestyram Yes [id number] DISSOLVE 1 [facility] ine light 8-04 SCOOPFUL ity of (CHOLESTYRA 00:00: IN FLUID [place] MINE LIGHT) 00 FOUR TIMES Me dical 4 gram DAILY. Branch powder cholestyram Yes [id number] DISSOLVE 1 [facility] ine light 8-04 SCOOPFUL ity of (CHOLESTYRA 00:00: IN FLUID [place] MINE LIGHT) 00 FOUR TIMES Me dical 4 gram DAILY. Branch powder cholestyram Yes [id number] DISSOLVE 1 Univers ine light 8-04 SCOOPFUL ity of (CHOLESTYRA 00:00: IN FLUID [place] MINE LIGHT) 00 FOUR TIMES Me dical 4 gram DAILY. Branch powder cholestyram Yes [id number] DISSOLVE 1 Univers ine light 8-04 SCOOPFUL ity of (CHOLESTYRA 00:00: IN FLUID [place] MINE LIGHT) 00 FOUR TIMES Me dical 4 gram DAILY. Branch powder cholestyram Yes [id number] DISSOLVE 1 [facility] ine light 8-04 SCOOPFUL ity of (CHOLESTYRA 00:00: [place] FLUID [place] MINE LIGHT) 00 FOUR TIMES Me dical 4 gram DAILY. Branch powder cholestyram Yes [id number] DISSOLVE 1 [facility] ine light 8-04 SCOOPFUL ity of (CHOLESTYRA 00:00: IN FLUID [place] MINE LIGHT) 00 FOUR TIMES Me dical 4 gram DAILY. Branch powder cholestyram Yes [id number] DISSOLVE 1 [facility] ine light 8-04 SCOOPFUL ity of (CHOLESTYRA 00:00: IN FLUID [place] MINE LIGHT) 00 FOUR TIMES Me dical 4 gram DAILY. Branch powder cholestyram Yes [id number] DISSOLVE 1 [facility] ine light 8-04 SCOOPFUL ity of (CHOLESTYRA 00:00: IN FLUID [place] MINE LIGHT) 00 FOUR TIMES Me dical 4 gram DAILY. Branch powder cholestyram Yes [id number] DISSOLVE 1 [facility] ine light 8-04 SCOOPFUL ity of (CHOLESTYRA 00:00: IN FLUID [place] MINE LIGHT) 00 FOUR TIMES Me dical 4 gram DAILY. Branch powder cholestyram Yes [id number] DISSOLVE 1 [facility] ine light 8-04 SCOOPFUL ity of (CHOLESTYRA 00:00: IN FLUID [place] MINE LIGHT) 00 FOUR TIMES Me dical 4 gram DAILY. Branch powder cholestyram Yes [id number] DISSOLVE 1 Univers ine light 8-04 SCOOPFUL ity of (CHOLESTYRA 00:00: IN FLUID [place] MINE LIGHT) 00 FOUR TIMES Me dical 4 gram DAILY. Branch powder cholestyram Yes [id number] DISSOLVE 1 [facility] ine light 8-04 SCOOPFUL ity of (CHOLESTYRA 00:00: IN FLUID [place] MINE LIGHT) 00 FOUR TIMES Me dical 4 gram DAILY. Branch powder cholestyram Yes [id number] DISSOLVE 1 [facility] ine light 8-04 SCOOPFUL ity of (CHOLESTYRA 00:00: IN FLUID [place] MINE LIGHT) 00 FOUR TIMES Me dical 4 gram DAILY. Branch powder cholestyram Yes [id number] DISSOLVE 1 [facility] ine light 8-04 SCOOPFUL ity of (CHOLESTYRA 00:00: IN FLUID [place] MINE LIGHT) 00 FOUR TIMES Me dical 4 gram DAILY. Branch powder cholestyram 2019- No [id number] 1 scoop 4 Univers ine light 4 8-01 08-01 times a ity of gram powder 00:00: 00:00 day. [place] 00 :00 Medical Branch cholestyram 2019- No [id number] 1 scoop 4 Univers ine light 4 8-01 08-01 times a ity of gram powder 00:00: 00:00 day. [place] 00 :00 Medical Branch antiox.mv [facility]-03 mouth. ity of s/lut/ifeanyi 15:09: [place] (I-CAPS 27 Medical ORAL) Branch MULTIVITAMI Yes Take by Uni vers N ORAL 09-03 mouth. ity of 15:09: Takes [place] 27 Prevagen. Medical Branch antiox.mv Yes Take by Unive rs no.10/omeg3 729 mouth. ity of s/lut/ifeanyi 15:09: [place] (ICAPS 27 Medical ORAL) Branch MULTIVITAMI Yes Take by Un kathie N ORAL 7-29 mouth. ity of 15:09: Takes [place] [address] Prevagen. Medical Branch antiox.mv Yes Take by Unive rs no.10/omeg3 729 mouth. ity of s/lut/ifeanyi 15:09: [place] (ICAPS 27 Medical ORAL) Branch MULTIVITAMI Yes Take by Uni vers N ORAL 7-29 mouth. ity of 15:09: Takes [place] [address] Prevagen. Medical Branch antiox.mv Yes Take by Unive rs no.10/omeg3 09-03 mouth. ity of s/lut/ifeanyi 15:09: [place] ([facility] 27 Medical ORAL) Branch MULTIVITAMI Yes Take by Uni vers N ORAL 7-29 mouth. ity of 15:09: Takes [place] [address] Prevagen. Medical Branch antiox.mv Yes Take by Unive rs no.10/omeg3 29 mouth. ity of s/lut/ifeanyi 15:09: [place] (ICAPS 27 Medical ORAL) Branch MULTIVITAMI Yes Take by Uni vers N ORAL 7-29 mouth. ity of 15:09: Takes [place] [address] Prevagen. Medical Branch antiox.mv Yes Take by Unive rs no.10/omeg3 729 mouth. ity of s/lut/ifeanyi 15:09: [place] (ICAPS 27 Medical ORAL) Branch MULTIVITAMI Yes Take by Uni vers N ORAL 7-29 mouth. ity of 15:09: Takes [place] [address] Prevagen. Medical Branch antiox.mv Yes Take by Unive rs no.10/omeg3 729 mouth. ity of s/lut/ifeanyi 15:09: [place] (ICAPS 27 Medical ORAL) Branch MULTIVITAMI Yes Take by Uni vers N ORAL 7-29 mouth. ity of 15:09: Takes [place] [address] Prevagen. Medical Branch antiox.mv Yes Take by Unive rs no.10/omeg3 7-29 mouth. ity of s/lut/ifeanyi 15:09: [place] (ICAPS 27 Medical ORAL) Branch MULTIVITAMI Yes Take by Uni vers N ORAL 7-29 mouth. ity of 15:09: Takes [place] [address] Prevagen. Medical Branch antiox.mv Yes Take by Unive rs no.10/omeg3 729 mouth. ity of s/lut/ifeanyi 15:09: [place] ([facility] 27 Medical ORAL) Branch MULTIVITAMI Yes Take by Uni vers N ORAL 7-29 mouth. ity of 15:09: Takes [place] [address] Prevagen. Medical Branch antiox.mv Yes Take by Unive rs no.10/omeg3 729 mouth. ity of s/lut/ifeanyi 15:09: [place] ([facility] 27 Medical ORAL) Branch MULTIVITAMI Yes Take by Uni vers N ORAL 7-29 mouth. ity of 15:09: Takes [place] [address] Prevagen. Medical Branch antiox.mv Yes Take by Unive rs no.10/omeg3 729 mouth. ity of s/lut/ifeanyi 15:09: [place] ([facility] 27 Medical ORAL) Branch MULTIVITAMI Yes Take by Uni vers N ORAL 7-29 mouth. ity of 15:09: Takes [place] [address] Prevagen. Medical Branch antiox.mv Yes Take by Unive rs no.10/omeg3 729 mouth. ity of s/lut/ifeanyi 15:09: [place] ([facility] 27 Medical ORAL) Branch MULTIVITAMI Yes Take by Uni vers N ORAL 7-29 mouth. ity of 15:09: Takes [place] [address] Prevagen. Medical Branch antiox.mv Yes Take by Unive rs no.10/omeg3 7-29 mouth. ity of s/lut/ifeanyi 15:09: [place] ([facility] 27 Medical ORAL) Branch MULTIVITAMI Yes Take by Uni vers N ORAL 7-29 mouth. ity of 15:09: Takes [place] [address] Prevagen. Medical Branch antiox.mv Yes Take by Unive rs no.10/omeg3 7-29 mouth. ity of s/lut/ifeanyi 15:09: [place] (I-CAPS 27 Medical ORAL) Branch MULTIVITAMI Yes Take by Uni vers N ORAL 7-29 mouth. ity of 15:09: Takes [place] [address] Prevagen. Medical Branch antiox.mv Yes Take by Unive rs no.10/omeg3 7-29 mouth. ity of s/lut/ifeanyi 15:09: [place] (ICAPS 27 Medical ORAL) Branch MULTIVITAMI Yes Take by Uni vers N ORAL 7-29 mouth. ity of 15:09: Takes [place] [address] Prevagen. Medical Branch antiox.mv Yes Take by Unive rs no.10/omeg3 7-29 mouth. ity of s/lut/ifeanyi 15:09: [place] (ICAPS 27 Medical ORAL) Branch antiox.mv Yes Take by Unive rs no.10/omeg3 729 mouth. ity of s/lut/ifeanyi 15:09: [place] (ICAPS 27 Medical ORAL) Branch MULTIVITAMI Yes Take by Uni vers N ORAL 7-29 mouth. ity of 15:09: Takes [place] [address] Prevagen. Medical Branch MULTIVITAMI Yes Take by Uni vers N ORAL 7-29 mouth. ity of 15:09: Takes [place] [address] Prevagen. Medical Branch antiox.mv Yes Take by Unive rs no.10/omeg3 729 mouth. ity of s/lut/ifeanyi 15:09: [place] (ICAPS 27 Medical ORAL) Branch MULTIVITAMI Yes Take by Uni vers N ORAL 7-29 mouth. ity of 15:09: Takes [place] [address] Prevagen. Medical Branch antiox.mv Yes Take by Unive rs no.10/omeg3 7-29 mouth. ity of s/lut/ifeanyi 15:09: [place] (ICAPS 27 Medical ORAL) Branch MULTIVITAMI Yes Take by Uni vers N ORAL 7-29 mouth. ity of 15:09: Takes [place] [address] Prevagen. Medical Branch antiox.mv Yes Take by Unive rs no.10/omeg3 7-29 mouth. ity of s/lut/ifeanyi 15:09: [place] (ICAPS 27 Medical ORAL) Branch MULTIVITAMI Yes Take by Uni vers N ORAL 7-29 mouth. ity of 15:09: Takes [place] [address] Prevagen. Medical Branch antiox.mv Yes Take by Unive rs no.10/omeg3 729 mouth. ity of s/lut/ifeaniy 15:09: [place] (CAPS 27 Medical ORAL) Branch MULTIVITAMI Yes Take by Uni vers N ORAL 7-29 mouth. ity of 15:09: Takes [place] [address] Prevagen. Medical Branch antiox.mv Yes Take by Unive rs no.10/omeg3 729 mouth. ity of s/lut/ifeanyi 15:09: [place] (ICAPS 27 Medical ORAL) Branch MULTIVITAMI Yes Take by Uni vers N ORAL 7-29 mouth. ity of 15:09: Takes [place] [address] Prevagen. Medical Branch antiox.mv Yes Take by Unive rs no.10/omeg3 729 mouth. ity of s/lut/ifeanyi 15:09: [place] ([facility] 27 Medical ORAL) Branch MULTIVITAMI Yes Take by Uni vers N ORAL 7-29 mouth. ity of 15:09: Takes [place] [address] Prevagen. Medical Branch antiox.mv Yes Take by Unive rs no.10/omeg3 729 mouth. ity of s/lut/ifeanyi 15:09: [place] ([facility] 27 Medical ORAL) Branch MULTIVITAMI Yes Take by Uni vers N ORAL 7-29 mouth. ity of 15:09: Takes [place] [address] Prevagen. Medical Branch antiox.mv Yes Take by Unive rs no.10/omeg3 7-29 mouth. ity of s/lut/ifeanyi 15:09: [place] (ICAPS 27 Medical ORAL) Branch MULTIVITAMI Yes Take by Uni vers N ORAL 7-29 mouth. ity of 15:09: Takes [place] [address] Prevagen. Medical Branch antiox.mv Yes Take by Unive rs no.10/omeg3 7-29 mouth. ity of s/lut/ifeanyi 15:09: [place] ([facility] 27 Medical ORAL) Branch MULTIVITAMI Yes Take by Uni vers N ORAL 7-29 mouth. ity of 15:09: Takes [place] Prevagen. Medical Branch antiox.mv Yes Take by Unive rs no.10/omeg3 7-29 mouth. ity of s/yamilkat/ifeanyi 15:09: [place] (I-CAPS 27 Medical ORAL) [place] MULTIVITAMI Yes Take by Uni vers N ORAL 7-29 mouth. ity of 15:09: Takes [place] [address] Prevagen. Medical Branch multivitami Yes 1{tbl} Take 1 Un kathie n tablet 7-29 tablet by ity of 14:26: mouth. [address] Branch multivitami Yes 1{tbl} Take 1 Un kathie n tablet 7-29 tablet by ity of 14:26: mouth. [address] Branch multivitami Yes 1{tbl} Take 1 Un kathie n tablet 7-29 tablet by ity of 14:26: mouth. [address] multivitami Yes 1{tbl} Take 1 Un kathie n tablet 7-29 tablet by ity of 14:26: mouth. [address] Branch multivitami Yes 1{tbl} Take 1 Un kathie n tablet 7-29 tablet by ity of 14:26: mouth. [address] multivitami Yes 1{tbl} Take 1 Un kathie n tablet 7-29 tablet by ity of 14:26: mouth. [address] multivitami Yes 1{tbl} Take 1 Un kathie n tablet 7-29 tablet by ity of 14:26: mouth. [address] Branch multivitami Yes 1{tbl} Take 1 Un kathie n tablet 7-29 tablet by ity of 14:26: mouth. [address] Branch multivitami Yes 1{tbl} Take 1 Un kathie n tablet 7-29 tablet by ity of 14:26: mouth. [address] Branch multivitami Yes 1{tbl} Take 1 Un kathie n tablet 7-29 tablet by ity of 14:26: mouth. [address] multivitami Yes 1{tbl} Take 1 Un kathie n tablet 7-29 tablet by ity of 14:26: mouth. [address] multivitami Yes 1{tbl} Take 1 Un kathie n tablet 7-29 tablet by ity of 14:26: mouth. [address] multivitami Yes 1{tbl} Take 1 Un kathie n tablet 7-29 tablet by ity of 14:26: mouth. [address] multivitami Yes 1{tbl} Take 1 Un kathie n tablet 7-29 tablet by ity of 14:26: mouth. [address] multivitami Yes 1{tbl} Take 1 Un kathie n tablet 7-29 tablet by ity of 14:26: mouth. [address] multivitami Yes 1{tbl} Take 1 Un kathie n tablet 7-29 tablet by ity of 14:26: mouth. [address] multivitami Yes 1{tbl} Take 1 Un kathie n tablet 7-29 tablet by ity of 14:26: mouth. [address] multivitami Yes 1{tbl} Take 1 Un kathie n tablet 7-29 tablet by ity of 14:26: mouth. [address] multivitami Yes 1{tbl} Take 1 Un kathie n tablet 7-29 tablet by ity of 14:26: mouth. [address] multivitami Yes 1{tbl} Take 1 Un kathie n tablet 7-29 tablet by ity of 14:26: mouth. [address] multivitami Yes 1{tbl} Take 1 Un kathie n tablet 7-29 tablet by ity of 14:26: mouth. [address] multivitami Yes 1{tbl} Take 1 Un kathie n tablet 7-29 tablet by ity of 14:26: mouth. [address] multivitami Yes 1{tbl} Take 1 Un kathie n tablet 7-29 tablet by ity of 14:26: mouth. [address] multivitami Yes 1{tbl} Take 1 Un kathie n tablet 7-29 tablet by ity of 14:26: mouth. [address] multivitami Yes 1{tbl} Take 1 Un kathie n tablet 7-29 tablet by ity of 14:26: mouth. [place] [address] Medical Branch multivitami Yes 1{tbl} Take 1 Un kathie n tablet 7-29 tablet by ity of 14:26: mouth. [place] [address] Medical Branch multivitami Yes 1{tbl} Take 1 Un kathie n tablet 7-29 tablet by ity of 14:26: mouth. [place] [address] Medical Branch VENLAFAXINE Yes Take by Uni vers HCL 7-29 mouth. ity of (EFFEXOR 14:26: [place] ORAL) Medical Branch VENLAFAXINE Yes Take by Uni vers HCL 7-29 mouth. ity of (EFFEXOR 14:26: [place] ORAL) Medical Branch VENLAFAXINE Yes Take by Uni vers HCL 7-29 mouth. ity of (EFFEXOR 14:26: [place] ORAL) Medical Branch VENLAFAXINE Yes Take by Uni vers HCL 7-29 mouth. ity of (EFFEXOR 14:26: [place] ORAL) Medical Branch VENLAFAXINE Yes Take by Uni vers HCL 7-29 mouth. ity of (EFFEXOR 14:26: [place] ORAL) Medical Branch VENLAFAXINE Yes Take by Uni vers HCL 7-29 mouth. ity of (EFFEXOR 14:26: [place] ORAL) Medical Branch VENLAFAXINE Yes Take by Uni vers HCL 7-29 mouth. ity of (EFFEXOR 14:26: [place] ORAL) Medical Branch VENLAFAXINE Yes Take by Uni vers HCL 7-29 mouth. ity of (EFFEXOR 14:26: [place] ORAL) 03 Medical Branch VENLAFAXINE Yes Take by Uni vers HCL 7-29 mouth. ity of (EFFEXOR 14:26: [place] ORAL) Medical Branch VENLAFAXINE Yes Take by Uni vers HCL 7-29 mouth. ity of (EFFEXOR 14:26: [place] ORAL) 03 Medical Branch VENLAFAXINE Yes Take by Uni vers HCL 7-29 mouth. ity of (EFFEXOR 14:26: [place] ORAL) 03 Medical Branch VENLAFAXINE Yes Take by Un kathie HCL 7-29 mouth. ity of (EFFEXOR 14:26: [place] ORAL) 03 Medical Branch VENLAFAXINE Yes Take by Uni vers HCL 7-29 mouth. ity of (EFFEXOR 14:26: [place] ORAL) 03 Medical Branch VENLAFAXINE Yes Take by Uni vers HCL 7-29 mouth. ity of (EFFEXOR 14:26: [place] ORAL) 03 Medical Branch VENLAFAXINE Yes Take by Uni vers HCL 7-29 mouth. ity of (EFFEXOR 14:26: [place] ORAL) 03 Medical Branch VENLAFAXINE Yes Take by Uni vers HCL 7-29 mouth. ity of (EFFEXOR 14:26: [place] ORAL) Medical Branch VENLAFAXINE Yes Take by Uni vers HCL 7-29 mouth. ity of (EFFEXOR 14:26: [place] ORAL) 03 Medical Branch VENLAFAXINE Yes Take by Uni vers HCL 7-29 mouth. ity of (EFFEXOR 14:26: [place] ORAL) 03 Medical Branch VENLAFAXINE Yes Take by Uni vers HCL 7-29 mouth. ity of (EFFEXOR 14:26: [place] ORAL) 03 Medical Branch VENLAFAXINE Yes Take by Uni vers HCL 7-29 mouth. ity of (EFFEXOR 14:26: [place] ORAL) Medical Branch VENLAFAXINE Yes Take by Uni vers HCL 7-29 mouth. ity of (EFFEXOR 14:26: [place] ORAL) 03 Medical Branch VENLAFAXINE Yes Take by Uni vers HCL 7-29 mouth. ity of (EFFEXOR 14:26: [place] ORAL) 03 Medical Branch VENLAFAXINE Yes Take by Uni vers HCL 7-29 mouth. ity of (EFFEXOR 14:26: [place] ORAL) 03 Medical Branch VENLAFAXINE Yes Take by Uni vers HCL 7-29 mouth. ity of (EFFEXOR 14:26: [place] ORAL) 03 Medical Branch VENLAFAXINE Yes Take by Uni vers HCL 7-29 mouth. ity of (EFFEXOR 14:26: [place] ORAL) 03 Medical Branch VENLAFAXINE Yes Take by Uni vers HCL 7-29 mouth. ity of (EFFEXOR 14:26: [place] ORAL) Medical Branch VENLAFAXINE Yes Take by Uni vers HCL 7-29 mouth. ity of (EFFEXOR 14:26: [place] ORAL) Medical Branch methylPREDN Yes [id number] 84mg Take 21 Univers ISolone 3-21 9103 tablets by ity of (MEDROL, 00:00: mouth [place] EVANGELINA,) 4 mg 00 SEE-INSTRU Med ical tablets CTIONS. Branch follow package directions methylPREDN 2018- No [id number] 84mg Take 21 Univers ISolone 3-21 - 9103 tablets by ity o f (MEDROL, 00:00: 00:00 mouth [place] EVANGELINA,) 4 mg 00 :00 SEE-INSTRU Med ical tablets CTIONS. Branch follow package directions methylPREDN 2018- No [id number] 84mg Take 21 Univers ISolone 3-21 - [...] needed for Pain (scale 4-6). traMADOL 50 2017-02 No 50mg Take 1 Uni vers mg tablet 2-12 - tablet by ity of 00:00: 00:00 mouth [...] 10 mg Tab 0-20 ity of 00:00: [place] [facility] diazePAM 5 2017-02 Yes Univers mg tablet 0-20 ity of 00:00: [place] [facility] Oxycodone 2017-02 Yes Univers 10 mg Tab 0-20 ity of 00:00: [place] [facility] diazePAM 5 2017-02 Yes Univers mg tablet 0-20 ity of 00:00: Medical Branch Oxycodone 2017-02 Yes Univers 10 mg Tab 0-20 ity of 00:00: [place] [facility] diazePAM 5 2017-02 Yes Univers mg tablet 0-20 ity of 00:00: [place] [facility] Oxycodone 2017-02 Yes Univers 10 mg Tab 0-20 ity of 00:00: [place] [facility] diazePAM 5 2017-02 Yes Univers mg tablet 0-20 ity of 00:00: [place] [facility] Oxycodone 2017-02 Yes Univers 10 mg Tab 0-20 ity of 00:00: [place] [facility] diazePAM 5 2017-02 Yes Univers mg tablet 0-20 ity of 00:00: [place] [facility] Oxycodone 2017-02 Yes Univers 10 mg Tab 0-20 ity of 00:00: [place] [address] Medical Branch diazePAM 5 2017-02 Yes Univers mg tablet 0-20 ity of 00:00: [place] [facility] Oxycodone 2017-02 Yes Univers 10 mg Tab 0-20 ity of 00:00: [place] [facility] diazePAM 5 2017-02 Yes Univers mg tablet 0-20 ity of 00:00: [place] [facility] Oxycodone 2017-02 Yes Univers 10 mg Tab 0-20 ity of 00:00: [place] [facility] diazePAM 5 2017-02 Yes Univers mg tablet 0-20 ity of 00:00: [place] [facility] Oxycodone 2017-02 Yes Univers 10 mg Tab 0-20 ity of 00:00: [place] [facility] diazePAM 5 2017-02 Yes Univers mg tablet 0-20 ity of 00:00: [place] [facility] Oxycodone 2017-02 Yes Univers 10 mg Tab 0-20 ity of 00:00: [place] [facility] diazePAM 5 2017-02 Yes Univers mg tablet 0-20 ity of 00:00: [place] [facility] Oxycodone 2017-02 Yes Univers 10 mg Tab 0-20 ity of 00:00: Medical Branch diazePAM 5 2017-02 Yes Univers mg tablet 0-20 ity of 00:00: [place] [facility] Oxycodone 2017-02 Yes Univers 10 mg Tab 0-20 ity of 00:: [place] [facility] diazePAM 5 2017-02 Yes Univers mg tablet 0-20 ity of 00:: [place] [facility] Branch Oxycodone 2017-02 Yes Univers 10 mg Tab 0-20 ity of 00:: [place] [facility] diazePAM 5 2017-02 Yes Univers mg tablet 0-20 ity of 00:: [place] [facility] Oxycodone 2017-02 Yes Univers 10 mg Tab 0-20 ity of 00:: [place] [facility] diazePAM 5 2017-02 Yes Univers mg tablet 0-20 ity of 00:: [place] [facility] Oxycodone 2017-02 Yes Univers 10 mg Tab 0-20 ity of 00:: [place] [facility] diazePAM 5 2017-02 Yes Univers mg tablet 0-20 ity of 00:: [place] [facility] Branch Oxycodone 2017-02 Yes Univers 10 mg Tab 0-20 ity of :: [place] [facility] diazePAM 5 2017-02 Yes Univers mg tablet 0-20 ity of 00:: [place] [facility] Branch Oxycodone 2017-02 Yes Univers 10 mg Tab 0-20 ity of 00:: [place] [facility] Branch venlafaxine Yes 150mg QD Take 1 Met hodi XR 8-[address] (EFFEXOR-XR 00:00: (150 mg Hos fausto ) 150 MG 24 00 total) by l hr capsule mouth nightly. venlafaxine Yes 150mg QD Take 1 Met hodi XR 8-[address] (EFFEXOR-XR 00:00: (150 mg Hos fausto ) 150 MG 24 00 total) by l hr capsule mouth nightly. venlafaxine Yes Method i XR 8-20 st (EFFEXOR-XR 00:00: Hospit a ) 150 MG 24 00 l hr capsule rOPINIRole 2016-02 Yes TK 1 T PO Un kathie 0.5 mg 1-21 QHS ity of tablet 00:00: [place] [facility] rOPINIRole 2016-02 Yes TK 1 T PO Un kathie 0.5 mg 1-21 QHS ity of tablet 00:00: [place] [address] [facility] Branch rOPINIRole 2017- Yes TK 1 T PO Un kathie 0.5 mg 1-21 QHS ity of tablet 00:00: [place] [facility] Branch rOPINIRole 2017- Yes TK 1 T PO Un kathie 0.5 mg 1-21 QHS ity of tablet 00:00: [place] [facility] rOPINIRole 2017- Yes TK 1 T PO Un kathie 0.5 mg 1-21 QHS ity of tablet 00:00: [place] [facility] Branch rOPINIRole 2017- Yes TK 1 T PO Un kathie 0.5 mg 1-21 QHS ity of tablet 00:00: [place] [facility] rOPINIRole 2017- Yes TK 1 T PO Un kathie 0.5 mg 1-21 QHS ity of tablet 00:00: [place] [facility] rOPINIRole 2017- Yes TK 1 T PO Un kathie 0.5 mg 1-21 QHS ity of tablet 00:00: [place] [facility] rOPINIRole 2017- Yes TK 1 T PO Un kathie 0.5 mg 1-21 QHS ity of tablet 00:00: [place] [facility] rOPINIRole 2017- Yes TK 1 T PO Un kathie 0.5 mg 1-21 QHS ity of tablet 00:00: [place] [facility] rOPINIRole 2017- Yes TK 1 T PO Un kathie 0.5 mg 1-21 QHS ity of tablet 00:00: [place] [facility] Branch rOPINIRole 2017- Yes TK 1 T PO Un kathie 0.5 mg 1-21 QHS ity of tablet 00:00: [place] [facility] rOPINIRole 2017- Yes TK 1 T PO Un kathie 0.5 mg 1-21 QHS ity of tablet 00:00: [place] [facility] rOPINIRole 2017- Yes TK 1 T PO Un kathie 0.5 mg 1-21 QHS ity of tablet 00:00: [place] [facility] Branch rOPINIRole 2017- Yes TK 1 T PO Un kathie 0.5 mg 1-21 QHS ity of tablet 00:00: [address] rOPINIRole 2017- Yes TK 1 T PO Un kathie 0.5 mg 1-21 QHS ity of tablet 00:00: [place] [facility] rOPINIRole 2016-02 Yes TK 1 T PO Un kathie 0.5 mg 1-21 QHS ity of tablet 00:00: [place] 00 Medical Branch rOPINIRole 2016-02 Yes TK 1 T PO Un kathie 0.5 mg 1-21 QHS ity of tablet 00:00: [place] 00 Medical Branch VENLAFAXINE 2015-02 Yes Take by Uni vers HCL 1-29 mouth. ity of (EFFEXOR 15:47: [place] ORAL) 12 Medical Branch methylPREDN 2015-02 Yes 84mg Take 21 Uni vers ISolone 1-29 tablets by ity of (MEDROL, 00:00: mouth [place] EVANGELINA,) 4 mg 00 SEE-INSTRU Med ical tablets CTIONS. Branch follow package directions methylPREDN 2015-02- No 84mg Take 21 Un kathie ISolone -29 -29 tablets by ity o f (MEDROL, 00:00: 00:00 mouth [place] EVANGELINA,) 4 mg 00 :00 SEE-INSTRU Med ical tablets CTIONS. Branch follow package directions methylPREDN 2015-02- No 84mg Take 21 Un kathie ISolone -03 09-29 tablets by ity o f (MEDROL, 00:00: [...] 10mg Take 1 Uni vers rine 1-11 -29 tablet by ity of (FLEXERIL) 00:00: 00:00 mouth 3 [place] as 10 mg 00 :00 (three) Medical tablet times Branch daily as needed for Muscle Spasms. cyclobenzap 2015-02- No 10mg Take 1 Uni vers rine 1-11 -29 tablet by ity of (FLEXERIL) 00:00: 00:00 mouth 3 [place] 10 mg 00 :00 (three) Medical tablet times Branch daily as needed for Muscle Spasms. pramipexole 2015-02 Yes TK 2 TS PO Univers (MIRAPEX) 1 0-03 QHS ity of mg tablet 00:00: [place] 00 [facility] Branch pramipexole 2016- Yes TK 2 TS PO Univers (MIRAPEX) 1 0-03 QHS ity of mg tablet 00:00: [place] 00 Medical Branch pramipexole 2016- Yes TK 2 TS PO Univers (MIRAPEX) 1 0-03 QHS ity of mg tablet 00:00: [place] [facility] Branch pramipexole 2016- Yes TK 2 TS PO Univers (MIRAPEX) 1 0-03 QHS ity of mg tablet 00:00: [place] 00 [facility] pramipexole 2016- Yes TK 2 TS PO [facility] (MIRAPEX) 1 0-03 QHS ity of mg tablet 00:00: [place] [facility] pramipexole 2016- Yes TK 2 TS PO [facility] (MIRAPEX) 1 0-03 QHS ity of mg tablet 00:00: [place] [facility] pramipexole 2016- Yes TK 2 TS PO [facility] (MIRAPEX) 1 0-03 QHS ity of mg tablet 00:00: [place] [facility] pramipexole 2016- Yes TK 2 TS PO [facility] (MIRAPEX) 1 0-03 QHS ity of mg tablet 00:00: [place] [facility] pramipexole 2016- Yes TK 2 TS PO Univers (MIRAPEX) 1 0-03 QHS ity of mg tablet 00:00: [place] [facility] pramipexole 2016- Yes TK 2 TS PO Univers (MIRAPEX) 1 0-03 QHS ity of mg tablet 00:00: [place] 00 [facility] pramipexole 2016- Yes TK 2 TS PO Univers (MIRAPEX) 1 0-03 QHS ity of mg tablet 00:00: [place] 00 [facility] pramipexole 2016- Yes TK 2 TS PO Univers (MIRAPEX) 1 0-03 QHS ity of mg tablet 00:00: [place] 00 [facility] pramipexole 2016- Yes TK 2 TS PO Univers (MIRAPEX) 1 0-03 QHS ity of mg tablet 00:00: [place] 00 [facility] pramipexole 2016- Yes TK 2 TS PO [facility] (MIRAPEX) 1 0-03 QHS ity of mg tablet 00:00: [place] 00 [facility] pramipexole 2016- Yes TK 2 TS PO [facility] (MIRAPEX) 1 0-03 QHS ity of mg tablet 00:00: [place] 00 [facility] pramipexole 2016- Yes TK 2 TS PO [facility] (MIRAPEX) 1 0-03 QHS ity of mg tablet 00:00: [place] [facility] pramipexole 2016- Yes TK 2 TS PO Univers (MIRAPEX) 1 0-03 QHS ity of mg tablet 00:00: [place] [facility] pramipexole 2016- Yes TK 2 TS PO Univers (MIRAPEX) 1 0-03 QHS ity of mg tablet 00:00: [place] [facility] pramipexole 2016- Yes TK 2 TS PO Univers (MIRAPEX) 1 0-03 QHS ity of mg tablet 00:00: [place] [facility] pramipexole 2016 Yes TK 2 TS PO [facility] (MIRAPEX) 1 0-03 QHS ity of mg tablet 00:00: [place] [facility] pramipexole 2016- Yes TK 2 TS PO [facility] (MIRAPEX) 1 0-03 QHS ity of mg tablet 00:00: [place] [facility] pramipexole 2016- Yes TK 2 TS PO [facility] (MIRAPEX) 1 0-03 QHS ity of mg tablet 00:00: [place] [facility] pramipexole 2016- Yes TK 2 TS PO [facility] (MIRAPEX) 1 0-03 QHS ity of mg tablet 00:00: [place] [facility] pramipexole 2016- Yes TK 2 TS PO [facility] (MIRAPEX) 1 0-03 QHS ity of mg tablet 00:00: [place] [facility] pramipexole 2016- Yes TK 2 TS PO [facility] (MIRAPEX) 1 0-03 QHS ity of mg tablet 00:00: [place] 00 [facility] pramipexole 2016- Yes TK 2 TS PO [facility] (MIRAPEX) 1 0-03 QHS ity of mg tablet 00:00: [address] pramipexole 2016- Yes TK 2 TS PO [facility] (MIRAPEX) 1 0-03 QHS ity of mg tablet 00:00: [place] [facility] pramipexole 2015-02 Yes TK 2 TS PO [facility] (MIRAPEX) 1 0-03 QHS ity of mg tablet 00:00: [facility] MOBIC 15 MG Yes 1 tab po Me moria TABS 5-27 qd l 00:00: CYCLOBENZAP Yes 1 tab po q [facility] RINE HCL 5 5-27 8 hrs prn l MG TABS 00:00: muscle spasms MIRAPEX 1 2013-02 Yes daily [facility] MG TABS 2-05 l 00:00: EFFEXOR XR 2013-02 Yes [facility] [id number] 2-05 l 00:00: CELEBREX 2013-02 No 1 cap po [facility] 100 MG CAPS 2-05 bid l 00:00: Effexor XR Effexor XR No 1{capsu QD Effexor XR 75 MG 75 MG le_with 75 MG _food} Wellbutrin Wellbutrin No 1{table QD Wellbutrin SR 100 MG SR 100 MG t_in_th SR 100 MG e_morni ng} Multivitami Multivitami No 1{table QD Multivitam n - n - t} in - traMADol traMADol No 1{table TID traMADol HCl 50 MG HCl 50 MG t_as_ne HCl 50 MG eded} Pramipexole Pramipexole No Pramipexol Dihydrochlo Dihydrochlo e ride 1 MG ride 1 MG Dihydrochl oride 1 MG Crestor 20 Crestor 20 No 1{table QD Crestor 20 MG MG t} MG Effexor XR Effexor XR No 1{capsu QD 75 MG 75 MG le_with _food} Wellbutrin Wellbutrin No 1{table QD SR 100 MG SR 100 MG t_in_th e_morni ng} Multivitami Multivitami No 1{table QD n - n - t} traMADol traMADol No 1{table TID HCl 50 MG HCl 50 MG t_as_ne eded} Pramipexole Pramipexole No Dihydrochlo Dihydrochlo ride 1 MG ride 1 MG Crestor 20 Crestor 20 No 1{table QD MG MG t} Effexor XR Effexor XR No 1{capsu QD Effexor XR 75 MG 75 MG le_with 75 MG _food} Wellbutrin Wellbutrin No 1{table QD Wellbutrin SR 100 MG SR 100 MG t_in_th SR 100 MG e_morni ng} Multivitami Multivitami No 1{table QD Multivitam n - n - t} in - traMADol traMADol No 1{table TID traMADol HCl 50 MG HCl 50 MG t_as_ne HCl 50 MG eded} Pramipexole Pramipexole No Pramipexol Dihydrochlo Dihydrochlo e ride 1 MG ride 1 MG Dihydrochl oride 1 MG Crestor 20 Crestor 20 No 1{table QD Crestor 20 MG MG t} MG Multivitami Multivitami No 1{table QD Multivitam n - n - t} in - Effexor XR Effexor XR No 1{capsu QD Effexor XR 75 MG 75 MG le_with 75 MG _food} Crestor 20 Crestor 20 No 1{table QD Crestor 20 MG MG t} MG Ibuprofen Ibuprofen No TID Ibuprofen 600 MG 600 MG 600 MG Pramipexole Pramipexole No Pramipexol Dihydrochlo Dihydrochlo e ride 1 MG ride 1 MG Dihydrochl oride 1 MG traMADol traMADol No 1{table TID traMADol HCl 50 MG HCl 50 MG t_as_ne HCl 50 MG eded} Multivitami Multivitami No 1{table QD Multivitam n - n - t} in - Effexor XR Effexor XR No 1{capsu QD Effexor XR 75 MG 75 MG le_with 75 MG _food} Crestor 20 Crestor 20 No 1{table QD Crestor 20 MG MG t} MG Ibuprofen Ibuprofen No TID Ibuprofen 600 MG 600 MG 600 MG Pramipexole Pramipexole No Pramipexol Dihydrochlo Dihydrochlo e ride 1 MG ride 1 MG Dihydrochl oride 1 MG traMADol traMADol No 1{table TID traMADol HCl 50 MG HCl 50 MG t_as_ne HCl 50 MG eded} Crestor 20 Crestor 20 No 1{table QD Crestor 20 MG MG t} MG traMADol traMADol No 1{table TID traMADol HCl 50 MG HCl 50 MG t_as_ne HCl 50 MG eded} Effexor XR Effexor XR No 1{capsu QD Effexor XR 75 MG 75 MG le_with 75 MG _food} Crestor 20 Crestor 20 No 1{table QD Crestor 20 MG MG t} MG traMADol traMADol No 1{table TID traMADol HCl 50 MG HCl 50 MG t_as_ne HCl 50 MG eded} Effexor XR Effexor XR No 1{capsu QD Effexor XR 75 MG 75 MG le_with 75 MG _food} traMADol traMADol No 1{table TID traMADol HCl 50 MG HCl 50 MG t_as_ne HCl 50 MG eded} CoQ-10 CoQ-10 No CoQ-10 Effexor XR Effexor XR No 1{capsu QD Effexor XR 75 MG 75 MG le_with 75 MG _food} Crestor 20 Crestor 20 No 1{table QD Crestor 20 MG MG t} MG Venlafaxine Venlafaxine No Venlafaxin HCl ER 75 HCl ER 75 e HCl ER MG MG 75 MG CoQ-10 CoQ-10 No CoQ-10 traMADol traMADol No 1{table TID traMADol HCl 50 MG HCl 50 MG t_as_ne HCl 50 MG eded} Crestor 20 Crestor 20 No 1{table QD Crestor 20 MG MG t} MG Crestor 20 Crestor 20 No 1{table QD Crestor 20 MG MG t} MG Venlafaxine Venlafaxine No Venlafaxin HCl ER 75 HCl ER 75 e HCl ER MG MG 75 MG Venlafaxine Venlafaxine No Venlafaxin HCl ER 150 HCl ER 150 e HCl ER MG MG 150 MG Atorvastati Atorvastati No Atorvastat n Calcium n Calcium in Calcium 10 MG 10 MG 10 MG traMADol traMADol No 1{table TID traMADol HCl 50 MG HCl 50 MG t_as_ne HCl 50 MG eded} Effexor XR Effexor XR No 1{capsu QD Effexor XR 150 MG 150 MG le_with 150 MG _food} CoQ-10 CoQ-10 No CoQ-10 Vitamin D3 Vitamin D3 No 1{table QD Vitamin D3 25 MCG 25 MCG t} 25 MCG (1000 UT) (1000 UT) (1000 UT) Pramipexole Pramipexole No Pramipexol Dihydrochlo Dihydrochlo e ride 1 MG ride 1 MG Dihydrochl oride 1 MG Atorvastati Atorvastati No 1{table QD Atorvastat n Calcium n Calcium t} in Calcium 10 MG 10 MG 10 MG Turmeric Turmeric No Turmeric 500 MG 500 MG 500 MG Crestor 20 Crestor 20 No 1{table QD Crestor 20 MG MG t} MG Venlafaxine Venlafaxine No Venlafaxin HCl ER 75 HCl ER 75 e HCl ER MG MG 75 MG Venlafaxine Venlafaxine No Venlafaxin HCl ER 150 HCl ER 150 e HCl ER MG MG 150 MG Atorvastati Atorvastati No Atorvastat n Calcium n Calcium in Calcium 10 MG 10 MG 10 MG traMADol traMADol No 1{table TID traMADol HCl 50 MG HCl 50 MG t_as_ne HCl 50 MG eded} Effexor XR Effexor XR No 1{capsu QD Effexor XR 150 MG 150 MG le_with 150 MG _food} CoQ-10 CoQ-10 No CoQ-10 Vitamin D3 Vitamin D3 No 1{table QD Vitamin D3 25 MCG 25 MCG t} 25 MCG (1000 UT) (1000 UT) (1000 UT) Pramipexole Pramipexole No Pramipexol Dihydrochlo Dihydrochlo e ride 1 MG ride 1 MG Dihydrochl oride 1 MG Atorvastati Atorvastati No 1{table QD Atorvastat n Calcium n Calcium t} in Calcium 10 MG 10 MG 10 MG Turmeric Turmeric No Turmeric 500 MG 500 MG 500 MG Crestor 20 Crestor 20 No 1{table QD Crestor 20 MG MG t} MG Venlafaxine Venlafaxine No Venlafaxin HCl ER 75 HCl ER 75 e HCl ER MG MG 75 MG Venlafaxine Venlafaxine No Venlafaxin HCl ER 150 HCl ER 150 e HCl ER MG MG 150 MG Atorvastati Atorvastati No Atorvastat n Calcium n Calcium in Calcium 10 MG 10 MG 10 MG traMADol traMADol No 1{table TID traMADol HCl 50 MG HCl 50 MG t_as_ne HCl 50 MG eded} Effexor XR Effexor XR No 1{capsu QD Effexor XR 150 MG 150 MG le_with 150 MG _food} CoQ-10 CoQ-10 No CoQ-10 Vitamin D3 Vitamin D3 No 1{table QD Vitamin D3 25 MCG 25 MCG t} 25 MCG (1000 UT) (1000 UT) (1000 UT) Pramipexole Pramipexole No Pramipexol Dihydrochlo Dihydrochlo e ride 1 MG ride 1 MG Dihydrochl oride 1 MG Atorvastati Atorvastati No 1{table QD Atorvastat n Calcium n Calcium t} in Calcium 10 MG 10 MG 10 MG Turmeric Turmeric No Turmeric 500 MG 500 MG 500 MG Atorvastati Atorvastati No 1{table QD Atorvastat n Calcium n Calcium t} in Calcium 10 MG 10 MG 10 MG Pramipexole Pramipexole No Pramipexol Dihydrochlo Dihydrochlo e ride 1 MG ride 1 MG Dihydrochl oride 1 MG Effexor XR Effexor XR No 1{capsu QD Effexor XR 150 MG 150 MG le_with 150 MG _food} traMADol traMADol No 1{table TID traMADol HCl 50 MG HCl 50 MG t_as_ne HCl 50 MG eded} CoQ-10 CoQ-10 No CoQ-10 Turmeric Turmeric No Turmeric 500 MG 500 MG 500 MG Venlafaxine Venlafaxine No Venlafaxin HCl ER 150 HCl ER 150 e HCl ER MG MG 150 MG Crestor 20 Crestor 20 No 1{table QD Crestor 20 MG MG t} MG Venlafaxine Venlafaxine No Venlafaxin HCl ER 75 HCl ER 75 e HCl ER MG MG 75 MG Vitamin D3 Vitamin D3 No 1{table QD Vitamin D3 25 MCG 25 MCG t} 25 MCG (1000 UT) (1000 UT) (1000 UT) Atorvastati Atorvastati No Atorvastat n Calcium n Calcium in Calcium 10 MG 10 MG 10 MG Atorvastati Atorvastati No 1{table QD Atorvastat n Calcium n Calcium t} in Calcium 10 MG 10 MG 10 MG Pramipexole Pramipexole No Pramipexol Dihydrochlo Dihydrochlo e ride 1 MG ride 1 MG Dihydrochl oride 1 MG Effexor XR Effexor XR No 1{capsu QD Effexor XR 150 MG 150 MG le_with 150 MG _food} traMADol traMADol No 1{table TID traMADol HCl 50 MG HCl 50 MG t_as_ne HCl 50 MG eded} CoQ-10 CoQ-10 No CoQ-10 Turmeric Turmeric No Turmeric 500 MG 500 MG 500 MG Venlafaxine Venlafaxine No Venlafaxin HCl ER 150 HCl ER 150 e HCl ER MG MG 150 MG Crestor 20 Crestor 20 No 1{table QD Crestor 20 MG MG t} MG Venlafaxine Venlafaxine No Venlafaxin HCl ER 75 HCl ER 75 e HCl ER MG MG 75 MG Vitamin D3 Vitamin D3 No 1{table QD Vitamin D3 25 MCG 25 MCG t} 25 MCG (1000 UT) (1000 UT) (1000 UT) Atorvastati Atorvastati No Atorvastat n Calcium n Calcium in Calcium 10 MG 10 MG 10 MG Atorvastati Atorvastati No 1{table QD Atorvastat n Calcium n Calcium t} in Calcium 10 MG 10 MG 10 MG Crestor 20 Crestor 20 No 1{table QD Crestor 20 MG MG t} MG traMADol traMADol No 1{table TID traMADol HCl 50 MG HCl 50 MG t_as_ne HCl 50 MG eded} Venlafaxine Venlafaxine No Venlafaxin HCl ER 150 HCl ER 150 e HCl ER MG MG 150 MG CoQ-10 CoQ-10 No CoQ-10 Venlafaxine Venlafaxine No Venlafaxin HCl ER 75 HCl ER 75 e HCl ER MG MG 75 MG Vitamin D3 Vitamin D3 No 1{table QD Vitamin D3 25 MCG 25 MCG t} 25 MCG (1000 UT) (1000 UT) (1000 UT) Effexor XR Effexor XR No 1{capsu QD Effexor XR 150 MG 150 MG le_with 150 MG _food} Turmeric Turmeric No Turmeric 500 MG 500 MG 500 MG Pramipexole Pramipexole No Pramipexol Dihydrochlo Dihydrochlo e ride 1 MG ride 1 MG Dihydrochl oride 1 MG Atorvastati Atorvastati No 1{table QD Atorvastat n Calcium n Calcium t} in Calcium 10 MG 10 MG 10 MG Crestor 20 Crestor 20 No 1{table QD Crestor 20 MG MG t} MG traMADol traMADol No 1{table TID traMADol HCl 50 MG HCl 50 MG t_as_ne HCl 50 MG eded} Venlafaxine Venlafaxine No Venlafaxin HCl ER 150 HCl ER 150 e HCl ER MG MG 150 MG CoQ-10 CoQ-10 No CoQ-10 Venlafaxine Venlafaxine No Venlafaxin HCl ER 75 HCl ER 75 e HCl ER MG MG 75 MG Vitamin D3 Vitamin D3 No 1{table QD Vitamin D3 25 MCG 25 MCG t} 25 MCG (1000 UT) (1000 UT) (1000 UT) Effexor XR Effexor XR No 1{capsu QD Effexor XR 150 MG 150 MG le_with 150 MG _food} Turmeric Turmeric No Turmeric 500 MG 500 MG 500 MG Pramipexole Pramipexole No Pramipexol Dihydrochlo Dihydrochlo e ride 1 MG ride 1 MG Dihydrochl oride 1 MG Atorvastati Atorvastati No 1{table QD Atorvastat n Calcium n Calcium t} in Calcium 10 MG 10 MG 10 MG Crestor 20 Crestor 20 No 1{table QD Crestor 20 MG MG t} MG traMADol traMADol No 1{table TID traMADol HCl 50 MG HCl 50 MG t_as_ne HCl 50 MG eded} Venlafaxine Venlafaxine No Venlafaxin HCl ER 150 HCl ER 150 e HCl ER MG MG 150 MG CoQ-10 CoQ-10 No CoQ-10 Venlafaxine Venlafaxine No Venlafaxin HCl ER 75 HCl ER 75 e HCl ER MG MG 75 MG Vitamin D3 Vitamin D3 No 1{table QD Vitamin D3 25 MCG 25 MCG t} 25 MCG (1000 UT) (1000 UT) (1000 UT) Effexor XR Effexor XR No 1{capsu QD Effexor XR 150 MG 150 MG le_with 150 MG _food} Turmeric Turmeric No Turmeric 500 MG 500 MG 500 MG Pramipexole Pramipexole No Pramipexol Dihydrochlo Dihydrochlo e ride 1 MG ride 1 MG Dihydrochl oride 1 MG Pramipexole Pramipexole No Pramipexol Dihydrochlo Dihydrochlo e ride 1 MG ride 1 MG Dihydrochl oride 1 MG Multivitami Multivitami No 1{table QD Multivitam n - n - t} in - traMADol traMADol No 1{table TID traMADol HCl 50 MG HCl 50 MG t_as_ne HCl 50 MG eded} Crestor 20 Crestor 20 No 1{table QD Crestor 20 MG MG t} MG Wellbutrin Wellbutrin No 1{table QD Wellbutrin SR 100 MG SR 100 MG t_in_th SR 100 MG e_morni ng} traMADol traMADol No 1{table TID traMADol HCl 50 MG HCl 50 MG t_as_ne HCl 50 MG eded} Pramipexole Pramipexole No Pramipexol Dihydrochlo Dihydrochlo e ride 1 MG ride 1 MG Dihydrochl oride 1 MG Multivitami Multivitami No 1{table QD Multivitam n - n - t} in - Crestor 20 Crestor 20 No 1{table QD Crestor 20 MG MG t} MG Wellbutrin Wellbutrin No 1{table QD Wellbutrin SR 100 MG SR 100 MG t_in_th SR 100 MG e_morni ng} traMADol traMADol No 1{table TID traMADol HCl 50 MG HCl 50 MG t_as_ne HCl 50 MG eded} Wellbutrin Wellbutrin No 1{table QD Wellbutrin SR 100 MG SR 100 MG t_in_th SR 100 MG e_morni ng} Multivitami Multivitami No 1{table QD Multivitam n - n - t} in - Pramipexole Pramipexole No Pramipexol Dihydrochlo Dihydrochlo e ride 1 MG ride 1 MG Dihydrochl oride 1 MG Effexor XR Effexor XR No 1{capsu QD Effexor XR 75 MG 75 MG le_with 75 MG _food} Crestor 20 Crestor 20 No 1{table QD Crestor 20 MG MG t} MG Immunizations Ordered Immunization Filled Immunization Date Status Commen ts Source Name Name Pneumovax (PPSV23) Pneumovax (PPSV23) 2017-11-15 Completed [facility] - 15:30:00 [facility] Pneumovax (PPSV23) Pneumovax (PPSV23) 2017-11-15 Completed [facility] - 15:30:00 [facility] Pneumovax (PPSV23) Pneumovax (PPSV23) 2017-11-15 Completed [facility] - 15:30:00 [facility] Pneumovax (PPSV23) Pneumovax (PPSV23) 2017-11-15 Completed [facility] - 15:30:00 [facility] Pneumovax (PPSV23) Pneumovax (PPSV23) 2017-11-15 Completed [facility] - 15:30:00 [facility] Pneumovax (PPSV23) Pneumovax (PPSV23) 2017-11-15 Completed [facility] - 15:30:00 [facility] Pneumovax (PPSV23) Pneumovax (PPSV23) 2017-11-15 Completed [facility] - 15:30:00 [facility] Pneumovax (PPSV23) Pneumovax (PPSV23) 2017-11-15 Completed [facility] - 15:30:00 [facility] Pneumovax (PPSV23) Pneumovax (PPSV23) 2017-11-15 Completed [facility] - 15:30:00 [facility] Pneumovax (PPSV23) Pneumovax (PPSV23) 2017-11-15 Completed [facility] - 15:30:00 [facility] Pneumovax (PPSV23) Pneumovax (PPSV23) 2017-11-15 Completed [facility] - 15:30:00 [facility] Pneumovax (PPSV23) Pneumovax (PPSV23) 2017-11-15 Completed [facility] - 15:30:00 [facility] Pneumovax (PPSV23) Pneumovax (PPSV23) 2017-11-15 Completed [facility] - 15:30:00 [facility] Pneumovax (PPSV23) Pneumovax (PPSV23) 2017-11-15 Completed [facility] - 15:30:00 [facility] Pneumovax (PPSV23) Pneumovax (PPSV23) 2017-11-15 Completed [facility] - 15:30:00 [facility] Pneumovax (PPSV23) Pneumovax (PPSV23) 2017-11-15 Completed [facility] - 15:30:00 [facility] Pneumovax (PPSV23) Pneumovax (PPSV23) 2017-11-15 Completed [facility] - 15:30:00 [facility] Pneumovax (PPSV23) Pneumovax (PPSV23) 2017-11-15 Completed [facility] - 15:30:00 [facility] Pneumovax (PPSV23) Pneumovax (PPSV23) 2017-11-15 Completed [facility] - 15:30:00 [facility] Pneumovax (PPSV23) Pneumovax (PPSV23) 2017-11-15 Completed [facility] - 15:30:00 [facility] Pneumococcal 2017-11-15 Completed [facility] Pneumococcal 2017-11-15 Completed [facility] 00:[facility]:00 [facility] Vital Signs Vital Name Observation Time Observation Value Comments Source height 2022-02-03 09:40:00 69 [in_i] [facility] weight 2022-02-03 09:40:00 166.0 [lb_av] [facility] temperature 2022-02-03 09:40:00 97.9 [degF] [facility] bmi 2022-02-03 09:40:00 24.51 kg/m2 [facility] oximetry 2022-02-03 09:40:00 99 % [facility] respiratory rate 2022-02-03 09:40:00 17 /min Comm on [facility] blood pressure 2022-02-03 09:40:00 138 mm[Hg] [facility] - systolic [facility] blood pressure 2022-02-03 09:40:00 71 mm[Hg] [facility] - diastolic [facility] height 2021-11-15 15:00:00 69 [in_i] [facility] weight 2021-11-15 15:00:00 165 [lb_av] [facility] temperature 2021-11-15 15:00:00 97.3 [degF] [facility] bmi 2021-11-15 15:00:00 24.36 kg/m2 [facility] oximetry 2021-11-15 15:00:00 99 % [facility] respiratory rate 2021-11-15 15:00:00 18 /min Comm on [facility] blood pressure 2021-11-15 15:00:00 132 mm[Hg] Common [facility] - systolic [facility] blood pressure 2021-11-15 15:00:00 62 mm[Hg] [facility] - diastolic [facility] height 2021-08-06 10:00:00 69 [in_i] Common [facility] weight 2021-08-06 10:00:00 165.3 [lb_av] [facility] temperature 2021-08-06 10:00:00 97.5 [degF] [facility] bmi 2021-08-06 10:00:00 24.41 kg/m2 [facility] oximetry 2021-08-06 10:00:00 98 % [facility] respiratory rate 2021-08-06 10:00:00 18 /min Comm on [facility] blood pressure 2021-08-06 10:00:00 128 mm[Hg] Common [facility] systolic [facility] blood pressure 2021-08-06 10:00:00 56 mm[Hg] Common [facility] - diastolic [facility] height 2021-05-04 13:40:00 69 [in_i] [facility] weight 2021-05-04 13:40:00 172.8 [lb_av] [facility] temperature 2021-05-04 13:40:00 97.7 [degF] [facility] bmi 2021-05-04 13:40:00 25.52 kg/m2 [facility] oximetry 2021-05-04 13:40:00 97 % [facility] respiratory rate 2021-05-04 13:40:00 17 /min Comm on [facility] blood pressure 2021-05-04 13:40:00 129 mm[Hg] Common [facility] - systolic [facility] blood pressure 2021-05-04 13:40:00 60 mm[Hg] [facility] - diastolic [facility] height 2021-03-23 14:10:00 69 [in_i] [facility] weight 2021-03-23 14:10:00 179.3 [lb_av] Common [facility] temperature 2021-03-23 14:10:00 97.5 [degF] Common [facility] bmi 2021-03-23 14:10:00 26.48 kg/m2 [facility] oximetry 2021-03-23 14:10:00 99 % Common [facility] respiratory rate 2021-03-23 14:10:00 17 /min Comm on [facility] blood pressure 2021-03-23 14:10:00 119 mm[Hg] Common [facility] - systolic [facility] blood pressure 2021-03-23 14:10:00 65 mm[Hg] Common [facility] - diastolic [facility] height 2021-03-23 14:20:00 69 [in_i] Common [facility] weight 2021-03-23 14:20:00 179.3 [lb_av] Common [facility] temperature 2021-03-23 14:20:00 97.5 [degF] [facility] bmi 2021-03-23 14:20:00 26.48 kg/m2 [facility] oximetry 2021-03-23 14:20:00 99 % [facility] respiratory rate 2021-03-23 14:20:00 17 /min Comm on [facility] blood pressure 2021-03-23 14:20:00 119 mm[Hg] Common [facility] - systolic [facility] blood pressure 2021-03-23 14:20:00 65 mm[Hg] [facility] - diastolic [facility] height 2021-01-19 13:40:00 69 [in_i] [facility] weight 2021-01-19 13:40:00 178 [lb_av] Common [facility] temperature 2021-01-19 13:40:00 97.4 [degF] [facility] bmi 2021-01-19 13:40:00 26.28 kg/m2 [facility] oximetry 2021-01-19 13:40:00 97 % Common [facility] blood pressure 2021-01-19 13:40:00 128 mm[Hg] [facility] - systolic [facility] blood pressure 2021-01-19 13:40:00 68 mm[Hg] [facility] - diastolic [facility] height 2020-11-23 14:20:00 69 [in_i] [facility] weight 2020-11-23 14:20:00 175 [lb_av] Common [facility] temperature 2020-11-23 14:20:00 98 [degF] [facility] bmi 2020-11-23 14:20:00 25.84 kg/m2 [facility] blood pressure 2020-11-23 14:20:00 130 mm[Hg] [facility] - systolic [facility] blood pressure 2020-11-23 14:20:00 70 mm[Hg] [facility] - diastolic [facility] Systolic blood 2019-11-13 20:38:00 134 mm[Hg] Univer sity of pressure [facility] Diastolic blood 2019-11-13 20:38:00 69 mm[Hg] Unive rsity of pressure [facility] Heart rate 2019-11-13 20:38:00 63 /min [facility] Body height 2019-11-13 20:38:00 172.7 cm [facility] Body weight 2019-11-13 20:38:00 80.287 kg [facility] BMI 2019-11-13 20:38:00 26.91 kg/m2 [facility] Systolic blood 2019-11-13 20:38:00 134 mm[Hg] [facility] Diastolic blood 2019-11-13 20:38:00 69 mm[Hg] [facility] of [facility] Heart rate 2019-11-13 20:38:00 63 /min [facility] Body height 2019-11-13 20:38:00 172.7 cm [facility] Body weight 2019-11-13 20:38:00 80.287 kg [facility] BMI 2019-11-13 20:38:00 26.91 kg/m2 [facility] Systolic blood 2019-07-18 13:04:00 133 mm[Hg] Univer sity of pressure [facility] Diastolic blood 2019-07-18 13:04:00 69 mm[Hg] Unive rsity of pressure [facility] Heart rate 2019-07-18 13:04:00 73 /min [facility] Respiratory rate 2019-07-18 13:04:00 18 /min [facility] Body height 2019-07-18 13:04:00 172.7 cm [facility] Body weight 2019-07-18 13:04:00 79.379 kg [facility] BMI 2019-07-18 13:04:00 26.61 kg/m2 [facility] Systolic blood 2019-04-03 20:59:00 160 mm[Hg] [facility] Diastolic blood 2019-04-03 20:59:00 73 mm[Hg] [facility] Heart rate 2019-04-03 20:59:00 74 /min [facility] Respiratory rate 2019-04-03 20:59:00 20 /min [facility] Body height 2019-04-03 20:59:00 172.7 cm [facility] Body weight 2019-04-03 20:59:00 79.379 kg [facility] BMI 2019-04-03 20:59:00 26.61 kg/m2 [facility] Systolic blood 2018-10-26 14:49:00 119 mm[Hg] [facility] Diastolic blood 2018-10-26 14:49:00 69 mm[Hg] [facility] Heart rate 2018-10-26 14:49:00 70 /min [facility] Body height 2018-10-26 14:49:00 172.7 cm [facility] [place] Body weight 2018-10-26 14:49:00 79.379 kg [facility] BMI 2018-10-26 14:49:00 26.61 kg/m2 [facility] Systolic blood 2018-09-03 14:23:00 127 mm[Hg] [facility] pressure [facility] Diastolic blood 2018-09-03 14:23:00 80 mm[Hg] [facility] Heart rate 2018-09-03 14:23:00 74 /min [facility] Body temperature 2018-09-03 14:23:00 36.17 Adela [facility] Respiratory rate 2018-09-03 14:23:00 16 /min [facility] Body height 2018-09-03 14:23:00 172.7 cm [facility] [place] Body weight 2018-09-03 14:23:00 79.198 kg [facility] [place] BMI 2018-09-03 14:23:00 26.55 kg/m2 [facility] Oxygen saturation in 2018-09-03 14:23:00 100 /min [facility] Arterial blood by [facility] Pulse oximetry Branch Systolic blood 2022-03-31 14:00:33 129 mm[Hg] [facility] pressure Diastolic blood 2022-03-31 14:00:33 60 mm[Hg] [facility] pressure Heart rate 2022-03-31 14:00:33 70 /min [facility] Body temperature 2022-03-31 14:00:33 36.89 Adela [facility] Respiratory rate 2022-03-31 14:00:33 18 /min [facility] Oxygen saturation in 2022-03-31 14:00:33 100 /min [facility] Arterial blood by Pulse oximetry Body height 2022-03-30 16:49:00 172.7 cm [facility] Body weight 2022-03-30 16:49:00 73.029 kg [facility] BMI 2022-03-30 16:49:00 24.48 kg/m2 [facility] Systolic blood 2021-06-11 15:00:00 141 mm[Hg] [facility] pressure Diastolic blood 2021-06-11 15:00:00 64 mm[Hg] [facility] pressure Heart rate 2021-06-11 15:00:00 61 /min [facility] Respiratory rate 2021-06-11 15:00:00 16 /min [facility] Oxygen saturation in 2021-06-11 15:00:00 94 /min [facility] Arterial blood by Pulse oximetry Body temperature 2021-06-11 14:26:00 35.83 Adela [facility] Body height 2021-06-11 12:38:00 175.3 cm [facility] Body weight 2021-06-11 12:38:00 77.565 kg [facility] BMI 2021-06-11 12:38:00 25.25 kg/m2 [facility] Weight 2014-07-02 16:18:31 [facility] Height 2014-07-02 16:18:31 [facility] Temperature Oral (F) 2014-07-02 16:18:31 98.4 F [facility] Heart Rate 2014-07-02 16:18:31 [facility] Systolic (mm Hg) 2014-07-02 16:18:31 [facility] Diastolic (mm Hg) 2014-07-02 16:18:31 [facility] Respitory Rate 2014-07-02 16:18:31 [facility] Weight 2014-01-10 16:45:51 [facility] Height 2014-01-10 16:45:51 [facility] Temperature Oral (F) 2014-01-10 16:45:51 98.1 F [facility] Heart Rate 2014-01-10 16:45:51 [facility] Systolic (mm Hg) 2014-01-10 16:45:51 [facility] Diastolic (mm Hg) 2014-01-10 16:45:51 [facility] Respitory Rate 2014-01-10 16:45:51 Jeb Oscar Procedures Procedure Date / Time Performing Clinician Source Performed MRI LUMBAR SPINE WO 2022-06-28 18:59:21 [facility], Darrin Chi [facility] CONTRAST CT LUMBAR SPINE WO 2022-06-28 18:20[facility] CONTRAST XR LUMBAR SPINE COMPLETE 2022-06-28 18:19:00 [facility] Darrin Mireles [facility] W BENDING XR LUMBAR SPINE 2 OR 3 VW 2022-05-25 15:59:00 [facility], Darrin [facility] HEMOGLOBIN & HEMATOCRIT 2022-03-31 10:36:00 Jose Villalpando [facility] [place] > 1 HOUR 2022-03-30 22:36:00 [facility] H ospital [place] > 1 HOUR 2022-03-30 21:05:00 [facility] ospital [place] AN ELECTIVE 2022-03-30 19:38:00 Minerva Garcia [facility] ENDOTRACHEAL AIRWAY Rebecca HC NERVE BLOCK QUADRATUS 2022-03-30 19:31:40 [facility] LUMBORUM HC NERVE BLOCK ERECTOR 2022-03-30 19:30:00 [facility] SPINAE FUSION, SPINE, LUMBAR, 2022-03-30 19:23:00 [facility] XLIF ABO AND RH CONFIRMATION 2022-03-30 16:50:00 [facility] BY PROTOCOL COVID-19 QUALITATIVE 2022-03-28 18:24:00 [facility] RT-PCR HEMOGLOBIN A1C 2022-03-23 20:19:00 [facility] spital Brenda CBC WITH PLATELET AND 2022-03-23 20:19:[address] [facility] DIFFERENTIAL Brenda COMPREHENSIVE METABOLIC 2022-03-23 20:19:00 [facility] PANEL Brenda PARTIAL THROMBOPLASTIN 2022-03-23 20:19:00 [facility] TIME (PTT) PROTHROMBIN TIME WITH INR 2022-03-23 20:19:00 [facility] ESTIMATED GFR 2022-03-23 20:19:00 Chata Padron spital Brenda TYPE AND SCREEN 2022-03-23 20:19:00 Trey [facility] ospital ECG PRE/POST OP 2022-03-23 20:03:08 Chata Padron spital Brenda XR LUMBAR SPINE COMPLETE 2022-03-18 16:44:00 [facility] W BENDING MRI LUMBAR SPINE WO 2022-03-18 16:08:[address] [facility] CONTRAST XR LEG LENGTH EVALUATION 2022-02-17 19:31:28 [facility] XR KNEE 3 VW LEFT 2022-02-17 19:31:28 [facility] CT POST MYELOGRAM LUMBAR 2021-06-11 14:26:54 [facility] IR MYELOGRAM LUMB INCL 2021-06-11 14:00:00 T[facility] INJ W S&I ECG 12-LEAD 2021-02-03 22:36:30 Trey [facility] ospital BASIC METABOLIC PANEL 2021-02-03 22:34:00 [facility] CBC HEMOGRAM 2021-02-03 22:34:00 [facility] ospital PROTHROMBIN TIME WITH INR 2021-02-03 22:34:00 [facility] PARTIAL THROMBOPLASTIN 2021-02-03 22:34:00 [facility] TIME (PTT) ESTIMATED GFR 2021-02-03 22:34:00 [facility] ospital MRI SPINE EXTERNAL STUDY 2021-01-26 21:02:00 [facility] MRI SPINE EXTERNAL STUDY 2021-01-26 20:42:00 [facility] ASSIGNMENT OF BENEFITS 2019-11-13 20:24:44 Doctor Unassigned, [facility] MR KNEE LEFT WO CONTRAST 2019-05-01 21:25:30 Mary Da Silva [facility] [place] [facility] [place] XR HIPS 2 VW LEFT 2018-10-26 14:56:20 Hesham Farrar [facility] Medical Branch CT ABDOMEN PELVIS W 2018-09-10 15:37:24 Alexus Smith [facility] CONTRAST A Medical Branch CONSENT/REFUSAL FOR 2018-09-10 14:07:24 Doctor Unasscorey, [facility] DIAGNOSIS AND TREATMENT [facility] ASSIGNMENT OF BENEFITS 2018-09-10 14:07:12 Doctor Unassigned, [facility] [place] VITAMIN B12, LEVEL 2018-09-03 16:08:00 Alexus Smith [facility] A Medical Branch FOLATE 2018-09-03 16:08:00 Alexus Smith [facility] A Medical Branch FREE T4 2018-09-03 16:08:00 Alexus Smith [facility] Medical Branch THYROID STIMULATING 2018-09-03 16:08:00 Alexus Smith [facility] HORMONE A Medical Branch BASIC METABOLIC PANEL 2018-09-03 16:08:00 Alexus Smith [facility] (NA, K, CL, CO2, GLUCOSE, A Medica Branch BUN, CREATININE, CA) GLYCOSYLATED HEMOGLOBIN 2018-09-03 16:08:00 Alka Smithbeth [facility] (A1C) [facility] [place] VITAMIN D, 25-OH 2018-09-03 16:08:00 Alexus Smith [facility] A Medical Branch FREE T3 2018-09-03 16:08:00 Alexus Smith [facility] A Medical Branch ASSIGNMENT OF BENEFITS 2018-09-03 14:10:30 Doctor Unassigned, [facility] [place] Plan of Care Planned Activity Planned Date Details Comments Source Future Scheduled 2022-07-13 COVID-19 VACCINE (#1) [facility] Test 16:50:09 [code = COVID-19 VACCINE (#1)] Future Scheduled 2022-07-13 Hepatitis C screening [facility] Test 16:50:09 (procedure) [code = 326697886] Future Scheduled 2022-07-13 SHINGLES VACCINES (1 [facility] Test 16:50:09 of 2) [code = SHINGLES VACCINES (1 of 2)] Future Scheduled 2022-07-13 65+ P[facility]UMOCOCCAL [facility] Test 16:50:09 VACCINE (2 - PCV) [code = 65+ PNEUMOCOCCAL VACCINE (2 - PCV)] Future Scheduled 2022-07-13 INFLUENZA VACCINE Method [facility] Hospital Test 16:50:09 [code = INFLUENZA VACCINE] Future Scheduled 2022-04-05 COVID-19 VACCINE (#1) Me [facility] Test 10:51:01 [code = COVID-19 VACCINE (#1)] Future Scheduled 2022-04-05 Hepatitis C screening [facility] Test 10:51:01 (procedure) [code = 502753226] Future Scheduled 2022-04-05 COLONOSCOPY SCREENING [facility] Test 10:51:01 [code = COLONOSCOPY SCREENING] Future Scheduled 2022-04-05 SHINGLES VACCINES (1 Met [facility] Test 10:51:01 of 2) [code = SHINGLES VACCINES (1 of 2)] Future Scheduled 2022-04-05 65+ [facility] 10:51:01 VACCINE (2 - PCV) [code = 65+ PNEUMOCOCCAL VACCINE (2 - PCV)] Future Scheduled 2022-04-05 INFLUENZA VACCINE Method [facility] Test 10:51:01 [code = INFLUENZA VACCINE] Future Scheduled 2021-12-09 HEPATITIS B VACCINES [facility] Test 04:19:14 (1 of 3 - 3-dose series) [code = HEPATITIS B VACCINES (1 of 3 - 3-dose series)] Future Scheduled 2021-12-09 COVID-19 VACCINE (#1) [facility] Test 04:19:14 [code = COVID-19 VACCINE (#1)] Future Scheduled 2021-12-09 Hepatitis C screening [facility] Test 04:19:14 (procedure) [code = [id number]] Future Scheduled 2021-12-09 [facility] Test 04:19:14 SCREENING [code = BREAST CANCER SCREENING] Future Scheduled 2021-12-09 COLONOSCOPY SCREENING [facility] Test 04:19:14 [code = COLONOSCOPY SCREENING] Future Scheduled 2021-12-09 SHINGLES VACCINES (1 [facility] Test 04:19:14 of 2) [code = SHINGLES VACCINES (1 of 2)] Future Scheduled 2021-12-09 65+ PNEUMOCOCCAL Methodi [facility] Test 04:19:14 VACCINE (2 - PCV) [code = 65+ PNEUMOCOCCAL VACCINE (2 - PCV)] Future Scheduled 2021-12-[address] [facility] Test 04:19:14 [code = INFLUENZA VACCINE] Encounters Start End Encounter Admission Attending Care Care Encounter Source Date/Time Date/Time Type Type Clinicians Facility Department ID 2022-02-03 Outpatient Davison, [facility] [id number] Common 10:52:01 [facility] [id number] [facility] 2021-12-20 Outpatient [facility] [id number] [place] 13:31:[address] [place] [address] 2021-12-15 Outpatient [facility] [id number] [place] 11:59:[address] [place] [address] 2021-03-19 Outpatient Davison, STLMLC [facility] [id number] Common 11:23:01 [facility] 2021-03-03 Outpatient Davison, [facility] [id number] Common 14:23:58 [facility] [address] [facility] 2021-03-03 Outpatient Davison, [facility] [id number] Common 14:01:13 [facility] [id number] [facility] 2021-03-03 Outpatient Davison, STLMLC [facility] [id number] Common 13:23:21 [facility] [address] [facility] 2021-03-03 Outpatient Davison, [facility] [id number] Common 12:27:13 [facility] [address]302 [facility] 2021-03-03 Outpatient Davison, STLMLC [facility] [id number] Common 12:13:05 Dylan [address] [facility] 2021-03-03 Outpatient Davison, STLMLC [facility] [id number] Common 12:11:57 Dylan [address] [facility] 2021-03-03 Outpatient Davison, [facility] [id number] Common 12:07:19 Dylan [address]1290 [facility] 2021-03-03 Outpatient Davison, STLMLC [facility] [id number] Common 11:57:26 [facility] [address] [facility] 2021-03-03 Outpatient Davison, [facility] [id number] Common 11:57:16 [facility] [address] [facility] 2022-06-28 2022-06-28 Outpatient GIST, [facility] [id number] Dolores 00:00:00 00:00:00 DARRIN 092 Method i 2022-06-28 2022-06-28 Outpatient GIST, [facility] [id number] Dolores 00:00:00 00:00:00 DARRIN 091 Method i 2022-06-28 2022-06-28 Outpatient GIST, [facility] [id number] Dolores 00:00:00 00:00:00 DARRIN 093 Method i 2022-06-20 2022-06-20 Community Gist, 1.2.840.1 [id number] 2100 [id number] Methodi 00:00:00 00:00:00 Orders Darrin Mireles 96871.1.1 960 s t 3.430.2.7 Hospit a .3.532123 l .8 2022-06-13 2022-06-13 Community Gist, 1.2.840.1 [id number] 2100 [id number] Methodi 00:00:00 00:00:00 Orders Darrin Mireles 79998.1.1 821 s t 3.430.2.7 Hospit a .3.712314 l .8 2022-05-25 2022-05-25 [facility] Gist, 1.2.840.1 [id number] Methodi 10:37:06 23:59:00 Encounter Darrin Mireles 67546.1.[address] 3.430.2.7 Hospit a .3.977624 l .8 2022-05-25 2022-05-25 Travel 1.2.840.1 1.2.521.576 3297 [id number] Methodi 00:00:00 00:00:[address] 3.430.2.7 0.2.7.3.698 Ho spita .3.452043 084.8 l .8 2022-05-25 2022-05-25 [facility] Gist, 1.2.840.1 [id number] 2100 [id number] Methodi 00:00:00 00:00:00 Orders Darrin Mireles 48015.1.1 266 s t 3.430.2.7 Hospit a .3.395441 l .8 2022-05-25 2022-05-25 Outpatient GIST, [facility] [id number] Dolores 00:00:00 00:00:00 DARRIN [place] [facility] 2022-04-01 2022-04-01 Patient Katheryn Bolivar 1.2.840.1 [id number] Methodi 00:00:00 00:00:[address] 3.430.2.7 Hospit a .3.256508 l .8 2022-04-01 2022-04-01 Patient Katheryn Bolivar 1.2.840.1 [id number] Methodi 00:00:00 00:00:[address] 3.430.2.7 Hospit a .3.926877 l .8 2022-03-30 2022-03-31 [facility] Gist, 1.2.840.1 [id number] Methodi 10:24:00 11:34:00 Encounter Darrin Mireles 52569.1.[address] 3.430.2.7 Hospit a .3.827630 l .8 2022-03-30 2022-03-31 [facility] GIST, 1.2.840.1 [id number] Dolores 00:00:00 00:00:00 Encounter DARRIN 03124.1.1 [address] .3.171627 .8 2022-03-30 2022-03-30 Surgery Gist, 1.2.840.1 [id number] Methodi 13:50:00 18:20:00 Darrin Mireles 35675.1.1 575 s t 3.430.2.7 Hospit a .3.114226 l .8 2022-03-30 2022-03-30 Surgery Gist, 1.2.840.1 [id number] Methodi 13:50:00 18:20:00 Darrin Mireles 43416.1.1 575 s t 3.430.2.7 Hospit a .3.331632 l .8 2022-03-30 2022-03-30 Anesthesia Wilver Crocker 1.2.840.1 [id number] 1038 [id number] Methodi 13:26:00 17:56:00 Event Chata Padron 46784.1.[address] 3.430.2.7 Hospit a .3.264610 l .8 2022-03-30 2022-03-30 Anesthesia Wilver Crockerh 1.2.840.1 07196 1038 [id number] Methodi 13:26:00 17:56:00 Chata Leach [address]120.1.[address] 3.430.2.7 Hospit a .3.035718 l .8 2022-03-30 2022-03-30 Travel 1.2.840.1 1.2.092.400 9974 [id number] Methodi 00:00:00 00:00:[address] 3.430.2.7 0.2.7.3.698 Ho spita .3.884239 084.8 l .8 2022-03-30 2022-03-30 Travel 1.2.840.1 1.2.417.465 2904 [id number] Methodi 00:00:00 00:00:[address] 3.430.2.7 0.2.7.3.698 Ho spita .3.192681 084.8 l .8 2022-03-28 2022-03-28 Travel 1.2.840.1 1.2.067.227 2104 144468 Methodi 00:00:00 00:00:[address] 3.430.2.7 0.2.7.3.698 Ho spita .3.741494 084.8 l .8 2022-03-28 2022-03-28 Travel 1.2.840.1 1.2.425.494 7858 449202 Methodi 00:00:00 00:00:[address] 3.430.2.7 0.2.7.3.698 Ho spita .3.787374 084.8 l .8 2022-03-28 2022-03-28 Outpatient GIST, [facility] [id number] Dolores 00:00:00 00:00:00 DARRIN Phelps [facility] st 2022-03-25 2022-03-25 Travel 1.2.840.1 1.2.984.175 4851 015150 Methodi 00:00:00 00:00:[address] 3.430.2.7 0.2.7.3.698 Ho spita .3.447310 084.8 l .8 2022-03-25 2022-03-25 Travel 1.2.840.1 1.2.672.614 8100 [id number] Methodi 00:00:00 00:00:[address] 3.430.2.7 0.2.7.3.698 Ho spita .3.318056 084.8 l .8 2022-03-23 2022-03-23 Pre-Admiss Gist, 1.2.840.1 [id number] 049 [id number] Methodi 13:00:00 14:00:00 ion Darrin Mireles 06253.1.1 965 s t Testing 3.430.2.7 Hospit a .3.848427 l .8 2022-03-23 2022-03-23 Pre-Admiss Gist, 1.2.840.1 [id number] 077 [id number] Methodi 13:00:00 14:00:00 [place] 69153.1.1 965 s t Testing 3.430.2.7 Hospit a .3.690507 l .8 2022-03-23 2022-03-23 Travel 1.2.840.1 1.2.841.644 5954 [id number] Methodi 00:00:00 00:00:[address] 3.430.2.7 0.2.7.3.698 Ho spita .3.254081 084.8 l .8 2022-03-23 2022-03-23 Travel 1.2.840.1 1.2.603.451 5761 [id number] Methodi 00:00:00 00:00:[address] 3.430.2.7 0.2.7.3.698 Ho spita .3.655278 084.8 l .8 2022-03-18 2022-03-18 [facility], 1.2.840.1 [id number] 93 Methodi 10:27:57 23:59:00 Encounter Darrin Mireles 97952.1.[address] 3.430.2.7 Hospit a .3.781291 l .8 2022-03-18 2022-03-18 [facility], 1.2.840.1 [id number] 93 Methodi 10:27:57 23:59:00 Encounter Darrin Mireles 73909.1.[address] 3.430.2.7 Hospit a .3.424577 l .8 2022-03-18 2022-03-18 [facility], 1.2.840.1 [id number] 93 Methodi 09:26:28 10:26:00 Encounter Darrin Mireles 01120.1.[address] 3.430.2.7 Hospit a .3.122551 l .8 2022-03-18 2022-03-18 [facility], 1.2.840.1 [id number] Methodi 09:26:28 10:26:00 Encounter Darrin Mireles [address]103.1.[address] 3.430.2.7 Hospit a .3.538025 l .8 2022-03-18 2022-03-18 Travel 1.2.840.1 1.2.243.325 8861 014989 Methodi 00:00:00 00:00:[address] 3.430.2.7 0.2.7.3.698 Ho spita .3.783030 084.8 l .8 2022-03-18 2022-03-18 Travel 1.2.840.1 1.2.180.021 2475 [id number] Methodi 00:00:00 00:00:[address] 3.430.2.7 0.2.7.3.698 Ho spita .3.455647 084.8 l .8 2022-03-01 2022-03-01 Travel 1.2.840.1 1.2.099.598 6663 [id number] Methodi 00:00:00 00:00:[address] 3.430.2.7 0.2.7.3.698 Ho spita .3.706263 084.8 l .8 2022-03-01 2022-03-01 Travel 1.2.840.1 1.2.428.456 2034 [id number] Methodi 00:00:00 00:00:[address] 3.430.2.7 0.2.7.3.698 Ho spita .3.644807 084.8 l .8 2022-02-25 2022-02-25 Community Gist, 1.2.840.1 [id number] 2100 [id number] Methodi 00:00:00 00:00:00 Dustin Mireles 06642.1.1 178 s t 3.430.2.7 Hospit a .3.997673 l .8 2022-02-25 2022-02-25 Community Gist, 1.2.840.1 [id number] 2099 [id number] Methodi 00:00:00 00:00:00 Dustin Mireles 71124.1.1 178 s t 3.430.2.7 Hospit a .3.558295 l .8 2022-02-17 2022-02-17 Office Jordin, 1.2.840.1 [id number] 61460 Methodi 13:30:00 15:46:35 Visit Mai Abraham 63510.1.1 283 s t 3.430.2.7 Hospit a .3.047318 l .8 2022-02-17 2022-02-17 Office Jordin, 1.2.840.1 [id number] 20243 Methodi 13:30:00 15:46:35 Visit Mai Abraham 64911.1.1 283 s t 3.430.2.7 Hospit a .3.273203 l .8 2022-02-17 2022-02-17 Travel 1.2.840.1 1.2.727.418 4310 068370 Methodi 00:00:00 00:00:[address] 3.430.2.7 0.2.7.3.698 Ho spita .3.427707 084.8 l .8 2022-02-17 2022-02-17 Travel 1.2.840.1 1.2.919.105 3559 525175 Methodi 00:00:00 00:00:[address] 3.430.2.7 0.2.7.3.698 Ho spita .3.806815 084.8 l .8 2022-02-17 2022-02-17 Outpatient JORDIN, [facility] [id number] Dolores 00:00:00 00:00:00 MAI Shaffer Method i st 2022-02-03 2022-02-03 OFFICE STLMLC STLMLC [id number] Co mmon 00:00:00 00:00:00 VISIT [facility] EST[facility] PT - [facility] LEVEL 4 [facility] 2022-02-03 2022-02-03 (TEL) STLMLC STLMLC [id number] Co mmon 00:00:00 00:00:00 [facility] - [facility] 2022-01-28 2022-01-28 (TEL) STLMLC STLMLC [id number] Co mmon 00:00:00 00:00:00 [facility] - [facility] 2022-01-24 2022-01-24 (TEL) STLMLC STLMLC [id number] Co mmon 00:00:00 00:00:00 [facility] 2022-01-11 2022-01-11 Outpatient RENEE, [facility] [id number] [place] 13:30:00 13:30:00 [facility] 2021-12-20 2021-12-20 Outpatient [facility] [id number] [place] 14:00:00 15:25:58 [facility] 2021-11-15 2021-11-15 OFFICE STLMLC STLMLC [id number] Co mmon 00:00:00 00:00:00 VISIT [facility] PT - [facility] [address] 2021-08-27 2021-08-27 (TEL) STLMLC STLMLC [id number] Co mmon 00:00:00 00:00:00 [facility] 2021-08-18 2021-08-18 (TEL) STLMLC STLMLC [id number] Co mmon 00:00:00 00:00:00 [facility] 2021-08-06 2021-08-06 OFFICE STLMLC STLMLC [id number] Co mmon 00:00:00 00:00:00 VISIT [facility] PT - [facility] [address] 2021-06-11 2021-06-11 [facility] Gist, 1.2.840.1 [id number] Methodi 08:45:00 23:59:00 Encounter Darrin Mireles 55214.1.[address] 3.430.2.7 Hospit a .3.170239 l .8 2021-06-11 2021-06-11 [facility] Gist, 1.2.840.1 [id number] Methodi 07:02:23 08:44:00 Encounter Darrin Mireles 22166.1.[address] 3.430.2.7 Hospit a .3.155824 l .8 2021-06-11 2021-06-11 Travel 1.2.840.1 1.2.145.508 7104 [id number] Methodi 00:00:00 00:00:[address] 3.430.2.7 0.2.7.3.698 Ho spita .3.745036 084.8 l .8 2021-06-07 2021-06-07 Telephone [facility]irl[facility], 1.2.840.1 [id number] 2100 [id number] Methodi 00:00:00 00:00:[address] 3.430.2.7 Hospit a .3.120425 l .8 2021-06-04 2021-06-04 Telephone [facility]irls, 1.2.840.1 [id number] 2099 038264 Methodi 00:00:00 00:00:[address] 3.430.2.7 Hospit a .3.295518 l .8 2021-05-20 2021-05-20 Transcribe Gist, 1.2.840.1 [id number] 684 [id number] Methodi 00:00:00 00:00:00 Orders Darrin Mireles 12304.1.1 557 s t 3.430.2.7 Hospit a .3.420852 l .8 2021-05-04 2021-05-04 (TEL) STLMLC STLMLC [id number] Co mmon 00:00:00 00:00:00 Spirit [facility] 2021-05-04 2021-05-04 OFFICE STLMLC STLMLC [id number] Co mmon 00:00:00 00:00:00 VISIT EST Spir it PT LEVEL 3 - [facility] 2021-03-23 2021-03-23 OFFICE STLMLC STLMLC [id number] Co mmon 00:00:00 00:00:00 VISIT Spirit ESTAB PT - [facility] LEVEL 4 [facility] 2021-03-23 2021-03-23 SUB ANNUAL STLMLC STLMLC [id number] Common 00:00:00 00:00:00 MCR Spirit WELLNESS - [facility] VISIT [facility] 2021-02-03 2021-02-03 Hospital Gist, 1.2.840.1 [id number] 88542 Methodi 17:27:22 23:59:00 Encounter Darrin Mireles 98748.1.[address] 3.430.2.7 Hospit a .3.092693 l .8 2021-02-03 2021-02-03 Hospital Gist, 1.2.840.1 [id number] 17712 Methodi 17:25:56 17:26:00 Encounter Darrin Mireles 43301.1.[address] 3.430.2.7 Hospit a .3.876723 l .8 2021-02-03 2021-02-03 Lab Gist, 1.2.840.1 [id number] 6236 Methodi 16:20:00 16:25:00 Darrin Mireles 53600.1.1 752 s t 3.430.2.7 Hospit a .3.721047 l .8 2021-02-03 2021-02-03 Travel 1.2.840.1 1.2.989.488 7919 605134 Methodi 00:00:00 00:00:[address] 3.430.2.7 0.2.7.3.698 Ho spita .3.218527 084.8 l .8 2021-01-20 2021-01-20 (TEL) STLMLC STLMLC [id number] Co mmon 00:00:00 00:00:00 [facility] 2021-01-19 2021-01-19 OFFICE STLMLC STLMLC [id number] Co mmon 00:00:00 00:00:00 VISIT EST Spir it PT LEVEL 3 [facility] 2021-01-18 2021-01-18 (TEL) STLMLC STLMLC [id number] Co mmon 00:00:00 00:00:00 [facility] 2020-12-17 2020-12-17 (TEL) STLMLC STLMLC [id number] Co mmon 00:00:00 00:00:00 [facility] 2020-12-14 2020-12-14 (TEL) STLMLC STLMLC [id number] Co mmon 00:00:00 00:00:00 [facility] 2020-11-23 2020-11-23 OFFICE STLMLC STLMLC [id number] Co mmon 00:00:00 00:00:00 VISIT Joseph [facility] LEVEL 4 [facility] 2020-11-16 2020-11-16 (TEL) STLMLC STLMLC [id number] Co mmon 00:00:00 00:00:00 [facility] 2020-10-07 2020-10-07 Outpatient CAROL [facility] [id number] Dolores 00:00:00 00:00:00 HANNAH [address] 2020-10-07 2020-10-07 Outpatient CAROL [facility] [id number] Dolores 00:00:00 00:00:00 HANNAH 492 Method i 2020-09-21 2020-09-21 (TEL) STLMLC STLMLC [id number] Co mmon 00:00:00 00:00:00 [facility] 2020-08-12 2020-08-12 Outpatient STLMLC STLMLC [id number] Common 00:00:00 00:00:00 [facility] 2020-04-13 2020-04-[address] [facility] 1.2.840.114 [id number] Univers 00:00:00 00:00:00 Outreach Aiden PRIMARY 350.1.13.10 i ty of [facility] 4.2.7.2.686 Madelaine ANDRADE [phone] Me dical [address] 2020-04-04 2020-04-04 Laboratory Lab, Adc Fam Pob I [facility] 1.2. 840.114 [id number] Univers 12:49:28 13:09:28 [facility] 350.1.13.10 ity [facility] 4.2.7.2.686 Higinio as Davian [phone] In dical nal [address] Office Building One 2020-04-04 2020-04-04 Outpatient R TAO [facility] [id number] Univers 13:00:00 13:00:00 [facility]-03-20 2020-03-20 Outpatient STLMLC STLMLC [id number] Common 00:00:00 00:00:00 [facility] 2020-03-18 2020-03-18 Outpatient STLMLC STLMLC [id number] Common 00:00:00 00:00:00 [facility] 2020-03-10 2020-03-10 Outpatient STLMLC STLMLC [id number] Common 00:00:00 00:00:00 [facility] 2020-03-10 2020-03-10 Outpatient STLMLC STLMLC [id number] Common 00:00:00 00:00:00 [facility] 2020-01-28 2020-01-28 Outpatient GIST, [facility] [id number] [place] [address] 00:00:00 00:00:00 DARRIN [address] 2020-01-28 2020-01-28 Outpatient GIST, [facility] [id number] [place] [address] 00:00:00 00:00:00 DARRIN [address] 2020-01-22 2020-01-22 Outpatient GIST, [facility] [id number] [place] [address] 00:00:00 00:00:00 DARRIN [address] 2020-01-20 2020-01-20 Outpatient STLMLC STLMLC [id number] Common 00:00:00 00:00:00 [facility] 2020-01-20 2020-01-20 Outpatient STLMLC STLMLC [id number] Common 00:00:00 00:00:00 [facility] 2020-01-14 2020-01-14 Outpatient STLMLC STLMLC [id number] Common 00:00:00 00:00:00 [facility] 2019-12-25 2019-12-25 Outpatient cMcDonald MMG MMG [id number] [place] 02:46:00 02:46:00 [facility] 2019-12-11 2019-12-11 Outpatient Sonido FARRAR [facility] [id number] Univers 00:00:00 00:00:00 [facility] 2019-12-11 2019-12-11 Outpatient Sonido FARRAR [facility] [id number] Univers 00:00:00 00:00:00 [facility] 2019-11-27 2019-11-27 Outpatient STLMLC STLMLC [id number] Common 00:00:00 00:00:00 [facility] 2019-11-26 2019-11-26 Outpatient STLMLC STLMLC [id number] Common 00:00:00 00:00:00 [facility] 2019-11-13 2019-11-13 [facility] 1.2.840.114 [id number] Univers 15:50:30 23:59:00 Encounter Hesham Bagley [facility] 350.1.13.10 ity of Surgical 4.2.7.2.686 Higinio as Specialti [phone] In dical es 8[address] [facility] 2019-11-13 2019-11-13 Office [facility] 1.2.596.253 [id number] 15:27:01 16:02:54 Visit Hesham Bagley [facility] 350.1.13.10 Surgical 4.2.7.2.686 Specialti [phone] [address] 2019-11-13 2019-11-13 Office [facility] [id number] Univers 15:27:01 16:02:54 Visit Hesham Bagley [facility] 350.1.13.10 it y of Surgical 4.2.7.2.686 Higinio as Specialti [phone] In dical es 198 [facility] 2019-11-13 2019-11-13 Outpatient R [facility] [id number] Univers 15:30:00 15:30:00 HESHAM ity [facility] 2019-11-13 2019-11-13 Orders Doctor GIOVANNI 1.2.840.114 [id number] Univers 00:00:00 00:00:00 Only Unassigned, MELISSA 350.1.13.10 ity of [facility] 4.2.7.2.686 Higinio as [phone] [address] 2019-07-18 2019-07-18 Office [facility] 1.2.642.622 [id number] Univers 08:04:03 08:18:07 Visit Hesham Bagley [facility] 350.1.13.10 it y of Surgical 4.2.7.2.686 Higinio as Specialti [phone] In dical es 198 [facility] 2019-07-18 2019-07-18 [facility] [id number] Univers 08:00:00 08:00:00 HESHAM ity of [facility] 2019-07-10 2019-07-10 [facility] 1.2.840.114 [id number] Univers 00:00:00 00:00:00 Hesham Bagley [facility] 350.1.13.10 it y of Surgical 4.2.7.2.686 Higinio as Specialti [phone] In dical es 198 [facility] 2019-05-16 2019-05-16 [facility] 1.2.840.114 [id number] Univers 00:00:00 00:00:00 Hesham Bagley Health 350.1.13.10 it y of Surgical 4.2.7.2.686 Higinio as Specialti [phone] In dical es 198 [facility] 2019-05-16 2019-05-16 [facility] 1.2.262.990 [id number] Univers 00:00:00 00:00:00 Hesham Bagley Health 350.1.13.10 it y of Surgical 4.2.7.2.686 Higinio as Specialti [phone] In dical es 198 [facility] 2019-05-01 2019-05-01 Outpatient [facility] [id number] Univers 15:31:07 23:59:00 MARY ity [facility] 2019-05-01 2019-05-01 [facility] 1.2.840.114 [id number] Univers 15:00:00 23:59:00 Encounter Mary [facility] 350.1.13.10 ity of [place] 4.2.7.2.686 [place] [facility] [phone] [facility] [address] [place] 2019-04-17 2019-04-17 [facility] 1.2.840.114 [id number] Univers 00:00:00 00:00:00 Hesham Bagley [facility] 350.1.13.10 it y of Surgical 4.2.7.2.686 Higinio as Specialti [phone] In dical es 198 [facility] 2019-04-10 2019-04-10 Telephone [facility] 1.2.840.114 [id number] Univers 00:00:00 00:00:00 Hesham Howe 350.1.13.10 it y of Surgical 4.2.7.2.686 Higinio as Specialti [phone] In dical es 198 [facility] 2019-04-03 2019-04-[address]840.114 [id number] [id number] Univers 15:22:00 23:59:00 Encounter Hesham Howe 350.1.13.10 ity of Surgical 4.2.7.2.686 Higinio as Specialti [phone] In dical es 809 [facility] 2019-04-03 2019-04-03 [address]859[address]831 [id number] Univers 14:52:27 15:33:26 Visit Hesham Howe 350.1.13.10 it y of Surgical 4.2.7.2.686 Higinio as Specialti [phone] In dical es 198 [facility] 2019-04-03 2019-04-03 Outpatient R [facility] [id number] Univers 15:15:00 15:15:00 HESHAM rasuch [facility] 2018-10-26 2018-10-[address]840[address]114 715 [id number] Univers 09:56:19 23:59:00 Encounter Hesham Howe 350.1.13.10 ity of Surgical 4.2.7.2.686 Higinio as Specialti [phone] In dical es 809 [facility] 2018-10-26 2018-10-26 Outpatient [facility] [id number] Univers 09:56:19 23:59:00 HESHAM rausch [facility] 2018-10-26 2018-10-[address]915[address]753 [id number] Univers 09:49:05 10:42:23 Visit Hesham Howe 350.1.13.10 it y of Surgical 4.2.7.2.686 Higinio as Specialti [phone] In dical es 198 [facility] 2018-09-10 2018-09-10 Outpatient R SARAH [facility] [id number] Univers 09:07:16 23:59:00 ALEXUS rausch [facility] 2018-09-10 2018-09-10 [facility] 1.2.840.114 [id number] Univers 09:00:00 23:59:00 Encounter Alexus Arita 350.1.13.10 ity [place]7.2.[place] [phone] [facility] [address] [place] 2018-09-06 2018-09-06 [facility] 1.2.840.114 [id number] Univers 00:00:00 00:00:00 Alexus [facility] 350.1.13.10 ity of [place] 4.2.7.2.686 Higinio as Professio [phone] In myla [facility] [address] [place] [address] One 2018-09-03 2018-09-03 Security Team Lead 1, Adc Lab [facility] 1.2.840.114 [id number] Univers 10:53:02 11:08:02 Visit Alexus Smith 350.1. 13.10 ity of [place]2.7.2.686 [place] [phone] [facility] [address] [place] 2018-09-03 2018-09-03 Office Sarah [facility] 1.2.840.114 [id number] Univers 09:12:21 10:31:56 Visit Alexus Arita 350.1.13.10 ity of [place] 4.2.7.2.686 [place] Profess[place] [phone] In myla [facility] 231 [facility] 2018-09-03 2018-09-03 Outpatient R SARAH [facility] [id number] Univers 09:00:00 10:31:56 ALEXUS rausch [facility] 2018-09-03 2018-09-03 [facility] 1.2.840.114 [id number] Univers 00:00:00 00:00:00 Alexus [facility] 350.1.13.10 ity of [place] 4.2.7.2.686 Higinio as Professio [phone] In dical [facility] [address] One 2018-09-03 2018-09-03 Orders Doctor GIOVANNI 1.2.840.114 [id number] Univers 00:00:00 00:00:00 Only Unassigned, MELISSA 350.1.13.10 ity of [place] [facility] 4.2.7.2.686 Higinio as [phone] [address] 2018-04-26 2018-04-26 [facility] [id number] [facility] 10:50:49 23:59:00 HESHAM ity [facility] 2016-07-21 2016-07-21 App[facility] 32 [id number] [place] 14:00:00 14:00:00 t; Jh NAVARRETE Physi Sindi JONES M.D. 2014-07-02 2014-07-02 Office nullFlavo Mischer [id number] Memoria 00:00:00 00:00:00 Visit r Neuroscienc [id number] l e [facility] Saud 2014-01-10 2014-01-10 Office nullFlavo Mischer [id number] Memoria 00:00:00 00:00:00 Visit r Neuroscienc [id number] l e [facility] Purdum Results Test Description Test Time Test Comments Results Result Comments Source SARS-CoV-2 (COVID-19) RNA [Presence] in Respiratory sp ecimen by 2022-03-28 22:30:31 MANISH with probe detection Test Item Value Reference Range Interpretation Comme nts SARS-CoV-2 (COVID-19) RNA [Presence] in Respiratory specimen by Not detected MANISH with probe detection (test code = 67025-7) Whether patient is employed in a healthcare setting (test code = Un known 01357-4) Whether the patient has symptoms related to condition of interest U nknown (test code = 64660-3) Whether the patient was hospitalized for condition of interest Unkn own (test code = 84534-1) Whether the patient was admitted to intensive care unit (ICU) for U nknown condition of interest (test code = 87852-5) Whether patient resides in a congregate care setting (test code = U nknown 40489-0) status (test code = 11678-9) Unknown Date and time of symptom onset (test code = 15603-3) Unknown [facility] Pre/Post [id number] 00:50:45 Test Item Value Reference Range Interpretation Comments Ventricular rate (test 62 code = 253) Atrial rate (test code 62 = 255) MN interval (test code 144 = 266) QRSD interval (test 110 code = 260) QT interval (test code 444 = 264) QTC interval (test code 450 = 265) P axis 1 (test code = 60 267) QRS axis 1 (test code = 5 268) T wave axis (test code 75 = 270) EKG impression (test Normal sinus code = 273) rhythm-Incomplete right bundle branch block-Borderline ECG-In automated comparison with ECG of 03-FEB-2021 16:36,-Incomplete right bundle branch block has replaced Right bundle branch block-Criteria for Septal infarct are no longer present- [facility] Pre/Post [id number] 00:50:45 Test Item Value Reference Range Interpretation Comments Ventricular rate (test 62 code = 253) Atrial rate (test code 62 = 255) MN interval (test code 144 = 266) QRSD interval (test 110 code = 260) QT interval (test code 444 = 264) QTC interval (test code 450 = 265) P axis 1 (test code = 60 267) QRS axis 1 (test code = 5 268) T wave axis (test code 75 = 270) EKG impression (test Normal sinus code = 273) rhythm-Incomplete right bundle branch block-Borderline ECG-In automated comparison with ECG of 03-FEB-2021 16:36,-Incomplete right bundle branch block has replaced Right bundle branch block-Criteria for Septal infarct are no longer present- [facility] 12 [id number] 03:23:43 Test Item Value Reference Range Interpretation Comments Ventricular rate (test code = 253) Atrial rate (test code = 255) MN interval (test code = 266) QRSD interval (test code = 260) QT interval (test code = 264) QTC interval (test code = 265) P axis 1 (test code = 267) QRS axis 1 (test code = 268) T wave axis (test code = 270) EKG impression (test code Normal sinus = 273) rhythm-Indeterminate axis-Pulmonary disease pattern-Right bundle branch block-Septal infarct , age undetermined-Abnorma l ECG-- [facility] WO [id number] 21:33:06HISTORY: ?Pain in the left knee. Mechanical knee symptoms such aslocking/catching/snapping/crepitus.TECHNIQUE: MR imaging of the left knee was [...] collateral ligaments are intact. CONCLUSIONS:1. Trace left kneejoint effusion, mild degenerative changes in the leftknee.2. No torn meniscus or torn ligaments detected. [facility], Radiant Results Inft User - 05/01/2019 4:34 PM CDTHISTORY: Pain in the left knee. Mechanical knee symptoms such aslocking/catching/snapping/crepitus.TECHNIQUE: MR imaging of the left knee was [...] leftknee.2. No torn meniscus or torn ligaments detected.[facility]fieldXR HIPS 2 VW [id number] 18:06:44No fractures or dislocationsUniversMemorial [facility] HospitalCT ABDOMEN PELVIS W [id number] 15:45:371. No acute intra- abdominal or intrapelvic pathology. * * * * * * * * ORIGINAL REPORT * * * * * * * *EXAM: CT SCAN OF THE ABDOMEN AND PELVIS WITH CONTRAST HISTORY:?intermittent white stools, difficultyflushing stools, motherwith pancreatic cancer, please evalaute for recurrent pancreatitis andother abnormalities TECHNIQUE:3 mm axial images are obtained from diaphragmatic domes tosymphysis pubis withboth oral and intravenous contrast. 120 mL ofOmnipaque is used as intravenous contrast. Sagittal andcoronalreformations are carried out. COMPARISON: None FINDINGS: Areas of atelectasis are seen in thelung bases. No pleural or pericardialeffusion is seen. [...] old healed fracture of the left hip. [facility], Radiant Results Inft User - 09/10/2018 10:47 AM CDT* * * * * * * * ORIGINAL REPORT * * * * * * * *EXAM: CT SCAN OF THE ABDOMEN AND PELVIS WITH CONTRASTHISTORY: intermittent white stools, difficulty flushing stools, motherwith pancreatic cancer, please evalaute for recurrent pancreatitis andother abnormalitiesTECHNIQUE:3 mm axial images are obtained from diaphragmatic domes tosymphysis pubis with both oral andintravenous contrast. 120 mL ofOmnipaque is used as [...] hydronephrosis isnoted.Abdominal aorta is normal in caliber. Atherosclerosisof the abdominalaorta is noted.No free fluid is [...] the left hip.IMPRESSION1. No acute intra-abdominal or int rapelvic pathology.[facility]fieldVITAMIN D, [id number] 13:09:00 Test Item Value Reference Range Interpretation Comments VIT D 25OH (test 35 ng/mL 25-80 code = 2540552754) 25-Hydroxy D3 35.3 ng/mL (test code = 5931203158) 25-Hydroxy D2 <2.5 ng/mL (test code = 8565204639) MARVIN (test code = Test developed and MARVIN) characteristics determined by [facility] Laboratory Services. [facility]fieldVITAMIN D, [id number] 13:09:00 Test Item Value Reference Range Interpretation Comments VIT D 25OH (test 35 ng/mL 25-80 code = 4944399917) 25-Hydroxy D3 35.3 ng/mL (test code = 4425437933) 25-Hydroxy D2 <2.5 ng/mL (test code = 5426130046) MARVIN (test code = Test developed and MARVIN) characteristics determined by [facility] Laboratory Services. [facility]fieldVITAMIN B12, [id number] 21:11:00 Test Item Value Reference Range Interpretation Comments VIT B12 (test code = 354 pg/mL 240-930 6236326507) MARVIN (test code = MARVIN) Biotin has been reported to cause a positive bias, interpret results relative to patient's use of biotin. Lab Interpretation (test Normal code = 84758-1) [facility]field[facility]2019-07-29 21:11:00 Test Item Value Reference Range Interpretation Comments FOLATE SER (test code = 17.9 ng/mL 3-20 Biot in has been [id number]) reported to cau se a positive bias, interpret resul ts relative to patient's use o f biotin. Lab Interpretation (test Normal code = 53852-9) [facility] B12, [id number] 21:11:00 Test Item Value Reference Range Interpretation Comments VIT B12 (test code = 354 pg/mL 240-930 3084530470) MARVIN (test code = MARVIN) Biotin has been reported to cause a positive bias, interpret results relative to patient's use of biotin. Lab Interpretation (test Normal code = 03900-1) [facility]2019-07-29 21:11:00 Test Item Value Reference Range Interpretation Comments FOLATE SER (test code = 17.9 ng/mL 3-20 Biot in has been [id number]) reported to cau se a positive bias, interpret resul ts relative to patient's use o f biotin. Lab Interpretation (test Normal code = 40936-8) [facility]fieldGLYCOSYLATED HEMOGLOBIN (A1C)2018-09-03 19:13:00 Test Item Value Reference [...] Indicated Lab Interpretation Normal (test code = 00966-6) [facility]fieldGLYCOSYLATED HEMOGLOBIN (A1C)2018-09-03 19:13:00 Test Item Value Reference [...] Indicated Lab Interpretation Normal (test code = 10122-8) [facility]fieldTHYROID STIMULATING [id number] 17:20:00 Test Item Value Reference Range Interpretation Comments TSH (test code = See_Comment [Automated message] [id number]) The system Par8o generated this result transmitted ref erence range: 0.45 - 4 .70 mIU/L. The refe rence range was not u sed to interpret this result as normal/abnor mal. Lab Interpretation (test Normal code = 51111-5) [facility]fieldTHYROID STIMULATING [id number] 17:20:00 Test Item Value Reference Range Interpretation Comments TSH (test code = See_Comment [Automated message] 5872591299) The system Par8[employer] generated this result transmitted ref erence range: 0.45 - 4 .70 mIU/L. The refe rence range was not u sed to interpret this result as normal/abnor mal. Lab Interpretation (test Normal code = 60005-3) [facility] [id number] 17:07:00 Test Item Value Reference Range Interpretation Comments FREE T4 (test code = 4861895945) 0.90 ng/dL 0.78-2.2 Lab Interpretation (test code = Normal 29663-6) [facility] [id number] 17:07:00 Test Item Value Reference Range Interpretation Comments FREE T4 (test code = 6297362775) 0.90 ng/dL 0.78-2.2 Lab Interpretation (test code = Normal 89275-6) [facility] [id number] 17:06:00 Test Item Value Reference Range Interpretation Comments FREE T3 (test code = 7918657505) 3.49 pg/mL 2.77-5.27 Lab Interpretation (test code = Normal 32369-6) [facility] [id number] 17:06:00 Test Item Value Reference Range Interpretation Comments FREE T3 (test code = 9713242667) 3.49 pg/mL 2.77-5.27 Lab Interpretation (test code = Normal 47687-6) [facility] METABOLIC PANEL (NA, K, CL, CO2, GLUCOSE, BUN, CREATININE, CA)2018-09-03 16:56:00 Test Item Value Reference Range Interpretation Comments NA (test code = 146 mmol/L 135-145 H 4252551046) K (test code = 5.1 mmol/L 3.5-5 H 8793948476) CL (test code = 107 mmol/L 98-108 7821184532) CO2 TOTAL (test code = 33 mmol/L 23-31 H 8650771811) AGAP (test code = 2-16 4632314386) BUN (test code = 12 mg/dL 7-23 1996206977) GLUCOSE (test code = 116 mg/dL 70-110 H 3636106091) CREATININE (test code = 0.64 mg/dL 0.5-1.04 6003413736) CALCIUM (test code = 9.4 mg/dL 8.6-10.6 4492258144) eGFR Calculation mL/min/1.73m2 (Non-) (test code = 5426125526) eGFR Calculation mL/min/1.73m2 () (test code = 0082727592) MARVIN (test code = MARVIN) Association of [...] tests). Lab Interpretation Abnormal (test code = 71333-7) [facility]OL[facility] (NA, K, CL, CO2, GLUCOSE, BUN, CREATININE, CA)2018-09-03 16:56:00 Test Item Value Reference Range Interpretation Comments NA (test code = 146 mmol/L 135-145 H 6347314385) K (test code = 5.1 mmol/L 3.5-5 H 0511377669) CL (test code = 107 mmol/L 98-108 7440626768) CO2 TOTAL (test code = 33 mmol/L 23-31 H 6793406750) AGAP (test code = 2-16 9385091743) BUN (test code = 12 mg/dL 7-23 5474708487) GLUCOSE (test code = 116 mg/dL 70-110 H 7538585081) CREATININE (test code = 0.64 mg/dL 0.5-1.04 3092193601) CALCIUM (test code = 9.4 mg/dL 8.6-10.6 9633429776) eGFR Calculation mL/min/1.73m2 (Non-) (test code = 7982525619) eGFR Calculation mL/min/1.73m2 () (test code = 3430161849) MARVIN (test code = MARVIN) Association of [...] tests). Lab Interpretation Abnormal (test code = 90907-4) [facility]"
[2022-07-25] MEDS ORDERED: TRAMADOL HCL 50 MG TAB ONE (13:04)
--- NOTE | 2022-07-25 13:58 | ER ---
Nurse's Notes [facility] Name: Kim Mera Age: 77 yrs Sex: Female : 1945 Arrival Date: 07/25/2022 Time: 11:50 Bed 11 Private MD: Dylan Davison Diagnosis: Fall on same level, unspecified;Contusion of left hip Presentation: 07/25 12:09 Chief complaint: Patient states: "Many years ago, I broke my left hip. The other day I mb9 tripped and fell on it. ever since it's been throbbing and I just wanted to make sure everything is ok.". Coronavirus screen: Vaccine status: Patient reports being unvaccinated. Ebola Screen: No symptoms or risks identified at this time. Initial Sepsis Screen: Does the patient meet any 2 criteria? No. Patient's initial sepsis screen is negative. Does the patient have a suspected source of infection? No. Patient's initial sepsis screen is negative. Risk Assessment: Do you want to hurt yourself or someone else? Patient reports no desire to harm self or others. Onset of symptoms was July 25, 2022. 12:09 Method Of Arrival: Ambulatory mb9 12:09 Acuity: JUAN 4 mb9 Triage Assessment: 12:12 General: Appears in no apparent distress. Behavior is appropriate for age. Pain: mb9 Complains of pain in left hip Pain radiates to left leg Pain currently is 4 out of 10 on a pain scale. Quality of pain is described as throbbing. Neuro: Chandler Agitation-Sedation Scale (RASS): 0 - Alert and Calm Level of Consciousness is awake, alert, obeys commands, Oriented to person, place, time, situation, Appropriate for age. Cardiovascular: Patient's skin is warm and dry. Respiratory: Airway is patent. Derm: Skin is pink, warm \\T\\ dry. Musculoskeletal: Range of motion: intact in all extremities. Historical: - Allergies: 12:11 adhesive tape; mb9 12:11 HYDROCODONE; mb9 12:11 hydromorphone; mb9 12:11 Morphine; mb9 - Home Meds: 12:11 Mirapex Oral [Active]; atorvastatin oral [Active]; mb9 - PMHx: 12:11 Arthritis; Firbomyalgia; High Cholesterol; restless leg syndrome; mb9 - PSHx: 12:11 Cholecystectomy; Total abdominal hysterectomy; Appendectomy; Left hip; pins; mb9 - Immunization history:: Adult Immunizations up to date. - Social history:: Smoking status: Patient denies any tobacco usage or history of. - Family history:: not pertinent. Screenin:[address] [facility] ED Fall Risk Assessment (Adult) History of falling in the last 3 months, mb9 including since admission Yes- single mechanical fall (1 pt) Confusion or Disorientation No (0 pts) Intoxicated or Sedated No (0 pts) Impaired Gait No (0 pts) Mobility Assist Device Used No (0 pt) Altered Elimination No (0 pt) Score/Fall Risk Level 0 - 2 = Low Risk Oriented to surroundings, Maintained a safe environment, Educated pt \\T\\ family on fall prevention, incl call for assistance when getting out of bed. Abuse screen: Denies threats or abuse. Nutritional screening: No deficits noted. Tuberculosis screening: No symptoms or risk factors identified. Assessment: 13:47 Reassessment: No changes from previously documented assessment. Patient and/or family mb9 updated on plan of care and expected duration. Pain level reassessed. Patient is alert, oriented x 3, equal unlabored respirations, skin warm/dry/pink. Vital Signs: 12:09 BP 131 / 84; Pulse 74; Resp 18; Temp 98.1(O); Pulse Ox 100% on R/A; Weight 74.84 kg; mb9 Height 5 ft. 8 in. ; Pain 4/10; 13:47 BP 112 / 51; Pulse 74; Resp 16; Pulse Ox 100% on R/A; mb9 12:09 Body Mass Index 25.09 (74.84 kg, 172.72 cm) mb9 12:09 Pain Scale: Adult mb9 ED Course: 11:50 Patient arrived in ED. am2 11:51 Dylan Davison DO is Private Physician. am2 12:01 Colt Kahn MD is Attending Physician. [facility] 12:09 Naina Palacio RN is Primary Nurse. mb9 12:10 Triage completed. mb9 12:10 Arm band placed on. mb9 12:13 Bed in low position. Call light in reach. Side rails up X 1. Client placed on mb9 continuous cardiac and pulse oximetry monitoring. NIBP monitoring applied. 12:13 No provider procedures requiring assistance completed. mb9 13:36 Pelvis XRAY In Process Unspecified. EDMS 13:36 Hip Left 2 View XRAY In Process Unspecified. EDMS 13:58 Dylan Davison DO is Referral Physician. [facility] 13:58 Tej Boo MD is Referral Physician. [facility] 14:04 Patient did not have IV access during this emergency room visit. mb9 Administered Medications: 12:57 Drug: traMADol PO 50 mg Route: PO; mb9 13:36 Follow up: Response: No adverse reaction mb9 Medication: 12:13 VIS not applicable for this client. mb9 Outcome: 13:58 Discharge ordered by . [facility] 14:04 Discharged to home ambulatory. mb9 14:04 Condition: stable 14:04 Discharge instructions given to patient, Instructed on discharge instructions, follow up and referral plans. Demonstrated understanding of instructions, follow-up care, medications, Prescriptions given X 1. 14:04 Patient left the ED. mb9 Signatures: Dispatcher [employer] EDColt Reeves MD MD cha Moreno, Amanda am2 Breneman, Mary Beth, RN RN mb9
--- NOTE | 2022-07-25 13:58 | EDPHYS ---
Physician Documentation [facility] Name: Kim Mera Age: 77 yrs Sex: Female : 1945 Arrival Date: 07/25/2022 Time: 11:50 Bed 11 Private MD: [facility] ED Physician Colt Kahn HPI: 07/25 13:06 This 77 yrs old Female presents to ER via Ambulatory with complaints of Hip ruben Pain. 13:06 The patient or guardian reports pain. that occurred at home, sustained from a fall, ruben while walking. The complaints affect the left hip. Onset: The symptoms/episode began/occurred 2 week(s) ago. Modifying factors: The symptoms are alleviated by nothing, the symptoms are aggravated by any movement. Associated signs and symptoms: Loss of consciousness: the patient experienced no loss of consciousness, Pertinent positives: None. Severity of symptoms: At their worst the symptoms were mild, moderate, in the emergency department the symptoms are unchanged. The patient has experienced similar episodes in the past, several times. Historical: - Allergies: 12:11 adhesive tape; mb9 12:11 HYDROCODONE; mb9 12:11 hydromorphone; mb9 12:11 Morphine; mb9 - Home Meds: 12:11 Mirapex Oral [Active]; atorvastatin oral [Active]; mb9 - PMHx: 12:11 Arthritis; Firbomyalgia; High Cholesterol; restless leg syndrome; mb9 - PSHx: 12:11 Cholecystectomy; Total abdominal hysterectomy; Appendectomy; Left hip; pins; mb9 - Immunization history:: Adult Immunizations up to date. - Social history:: Smoking status: Patient denies any tobacco usage or history of. - Family history:: not pertinent. ROS: 13:06 Constitutional: Negative for fever, chills, and weight loss, Eyes: Negative for injury, ruben pain, redness, and discharge, ENT: Negative for injury, pain, and discharge, Neck: Negative for injury, pain, and swelling, Cardiovascular: Negative for chest pain, palpitations, and edema, Respiratory: Negative for shortness of breath, cough, wheezing, and pleuritic chest pain, Abdomen/GI: Negative for abdominal pain, nausea, vomiting, diarrhea, and constipation, Back: Negative for injury and pain, : Negative for injury, bleeding, discharge, and swelling, Skin: Negative for injury, rash, and discoloration, Neuro: Negative for headache, weakness, numbness, tingling, and seizure, Psych: Negative for depression, anxiety, suicide ideation, homicidal ideation, and hallucinations, Allergy/Immunology: Negative for hives, rash, and allergies, Endocrine: Negative for neck swelling, polydipsia, polyuria, polyphagia, and marked weight changes, Hematologic/Lymphatic: Negative for swollen nodes, abnormal bleeding, and unusual bruising. 13:06 MS/extremity: Positive for decreased range of motion, pain, tenderness, of the left hip. Exam: 13:06 Constitutional: This is a well developed, well nourished patient who is awake, alert, ruben and in no acute distress. Head/Face: Normocephalic, atraumatic. Eyes: Pupils equal round and reactive to light, extra-ocular motions intact. Lids and lashes normal. Conjunctiva and sclera are non-icteric and not injected. Cornea within normal limits. Periorbital areas with no swelling, redness, or edema. ENT: Nares patent. No nasal discharge, no septal abnormalities noted. Tympanic membranes are normal and external auditory canals are clear. Oropharynx with no redness, swelling, or masses, exudates, or evidence of obstruction, uvula midline. Mucous membranes moist. Neck: Trachea midline, no thyromegaly or masses palpated, and no cervical lymphadenopathy. Supple, full range of motion without nuchal rigidity, or vertebral point tenderness. No Meningismus. Chest/axilla: Normal chest wall appearance and motion. Nontender with no deformity. No lesions are appreciated. Cardiovascular: Regular rate and rhythm with a normal S1 and S2. No gallops, murmurs, or rubs. Normal PMI, no JVD. No pulse deficits. Respiratory: Lungs have equal breath sounds bilaterally, clear to auscultation and percussion. No rales, rhonchi or wheezes noted. No increased work of breathing, no retractions or nasal flaring. Abdomen/GI: Soft, non-tender, with normal bowel sounds. No distension or tympany. No guarding or rebound. No evidence of tenderness throughout. Back: No spinal tenderness. No costovertebral tenderness. Full range of motion. Skin: Warm, dry with normal turgor. Normal color with no rashes, no lesions, and no evidence of cellulitis. Neuro: Awake and alert, GCS 15, oriented to person, place, time, and situation. Cranial nerves II-XII grossly intact. Motor strength 5/5 in all extremities. Sensory grossly intact. Cerebellar exam normal. Normal gait. Psych: Awake, alert, with orientation to person, place and time. Behavior, mood, and affect are within normal limits. 13:06 Musculoskeletal/extremity: ROM: full active range of motion, full passive range of motion, Circulation is intact in all extremities. Sensation intact. Compartment Syndrome exam of affected extremity: is normal. Joints: All joints are normal except the left hip displays pain at rest, painful range of motion, Weight bearing: able to fully bear weight, without difficulty, DVT Exam: no swelling, negative Homans' sign noted on exam, no appreciated bluish discoloration, no erythema, no increased warmth, pain. Vital Signs: 12:09 BP 131 / 84; Pulse 74; Resp 18; Temp 98.1(O); Pulse Ox 100% on R/A; Weight 74.84 kg; mb9 Height 5 ft. 8 in. ; Pain 4/10; 13:47 BP 112 / 51; Pulse 74; Resp 16; Pulse Ox 100% on R/A; mb9 12:09 Body Mass Index 25.09 (74.84 kg, 172.72 cm) mb9 12:09 Pain Scale: Adult mb9 MDM: 12:01 Patient medically screened. [facility] 13:08 Differential diagnosis: hip fracture, intertrochanteric fracture, femoral neck ruben fracture, femoral shaft fracture, bursitis, arthritis, strain. Data reviewed: vital signs, nurses notes, radiologic studies, plain films. Consideration of Admission/Observation Escalation of care including admission/observation considered. I considered the following discharge prescriptions or medication management in the emergency department Medications were administered in the Emergency Department. See MAR. Test considered but Not performed: CT: no ct hip needed. Care significantly affected by the following chronic conditions: arthritis, fibromyalgia, rls, high cholesterol. Counseling: I had a detailed discussion with the patient and/or guardian regarding: the historical points, exam findings, and any diagnostic results supporting the discharge/admit diagnosis, radiology results, the need for outpatient follow up, for definitive care, a family practitioner, a orthopedic surgeon. 07/25 12:53 Order name: Pelvis XRAY [facility] 07/25 12:53 Order name: Hip Left 2 View XRAY [facility] Administered Medications: 12:57 Drug: traMADol PO 50 mg Route: PO; mb9 13:36 Follow up: Response: No adverse reaction mb9 Disposition Summary: 07/25/22 13:58 Discharge Ordered Location: Home ruben Problem: new ruben Symptoms: have improved ruben Condition: Stable ruben Diagnosis - Fall on same level, unspecified ruben - Contusion of left hip ruben Followup: ruben - With: - When: 2 - 3 days - Reason: Recheck today's complaints, Continuance of care, Re-evaluation by your physician Followup: ruben - With: - When: 2 - 3 days - Reason: Recheck today's complaints, Re-evaluation by your physician Discharge Instructions: - Discharge Summary Sheet ruben - Fall Prevention in the Home, Adult ruben - Hip Pain ruben - Hip Sprain ruben Forms: - Medication Reconciliation Form ruben - Thank You Letter ruben - Antibiotic Education ruben - Prescription Opioid Use ruben Prescriptions: - Tramadol 50 mg Oral Tablet - take 1 tablet by ORAL route every 8 hours as needed; 26 tablet; Refills: 0, ruben Product Selection Permitted Signatures: Dispatcher [employer] Colt Carbone MD MD cha Breneman, Mary Beth RN RN mb9
[2022-07-25 14:09] VITALS: TEMP 98.1; O2SAT 100
[2022-07-25 14:10] VITALS: BP 112/51
--- NOTE | 2022-07-25 14:41 | RAD REPORT ---
EXAM DESCRIPTION: RAD - Pelvis - 07/25/2022 1:35 pm CLINICAL HISTORY: PAIN COMPARISON: Pelvis dated 02/10/2019 TECHNIQUE: Single AP view of the pelvis. FINDINGS: The visualized pelvic ring is intact. No suspicious osseous lesions. Cannulated left femor al neck screws in unchanged alignment. Lumbar fusion hardware was placed. Moderate bilateral hip join t degenerative changes. Other pelvic joints are unremarkable. Visualized aspects of the abdomen and s oft tissues are unremarkable. IMPRESSION: No acute osseous abnormality of the bony pelvis. Findings as above.
--- NOTE | 2022-07-25 14:42 | RAD REPORT ---
EXAM DESCRIPTION: RAD - Hip Left 2 View - 07/25/2022 1:35 pm CLINICAL HISTORY: PAIN COMPARISON: Abdomen Pelvis W/Wo Contrast dated 02/03/2022 TECHNIQUE: Left hip, AP and frogleg views of the left hip. FINDINGS: There is no fracture or dislocation. Cannulated left femoral neck screws. No acute or dest ructive bony process seen. IMPRESSION: No acute findings of the left hip.
== END 2022-07-25 14:04 | disposition home or self-care (01) ==
LOC: ER 11:50
DX: S70.02XA Contusion of left hip, initial encounter (principal); W18.30XA Fall on same level, unspecified, initial encounter; Z88.5 Allergy status to narcotic agent; Z91.048 Other nonmedicinal substance allergy status
CPT/HCPCS: 72170; 99283

== ENCOUNTER 2022-10-21 21:19 | Emergency (ER) | payer OTHER ==
--- OUTSIDE RECORDS SUMMARY | 2022-10-21 21:28 | XMS REPORT | Continuity of Care Document ---
:1945 Author Organization [facility] t Address [address] [facility] [address] [place] [address] Care Team Providers Name Role Phone Dylan Davison DO [place] [facility] Phys[facility] Dylan Davison Attending Clinician Unavailable DARRIN WALTER Attending Clinician Unavailable Katheryn Bolivar RN Attending Clinician Unavailable Lizzette WRIGHT, Wilver Perdomo Attending Clinician Chata Padron APRN Attending Clinician [phone] Mai Brenner MD Attending Clinician TESS RENEE Attending Clinician Unavailable Leonidas Gama RN Attending Clinician Unavailable HANNAH MEDINA Attending Clinician Unavailable Aiden Sultana DO Attending Clinician Lab, Adc Fam Pob I Attending Clinician Unavailable Carolin Hagen Attending Clinician CAROLIN BRADFORD Attending Clinician Unavailable Edgar Attending Clinician Unavailable HESHAM FARRAR Attending Clinician Unavailable Hesham Farrar MD Attending Clinician Doctor Unassigned, [place] Attending Clinician Unavailable MARY DA SILVA Attending Clinician Unavailable Mary Barnes Attending Clinician ALEXUS SMITH Attending Clinician Unavailable Alexus Smith MD Attending Clinician [phone], Adc Lab Attending Clinician Unavailable ROSALBA JONES M.D. Attending Clinician Unavailable DARRIN WALTER Admitting Clinician Unavailable Edgar Admitting Clinician Unavailable MARY DA SILVA Admitting Clinician Unavailable ALEXUS SMITH Admitting Clinician Unavailable Payers Payer Name Policy Type Policy Effective Date Expiration Date Sour ce Number MEDICARE PART A [id number] 2008 AND B 00:00:00 MEDICARE NOVITAS MB [id number] 2008 [facility] 00:00:00 - [facility] AETNA MEDICARE C1 [id number] [facility] LIFE C1 [id number] Common S pirit INS CO (Aetna) - [facility] C1 [id number] Common S pirit INS CO (Aetna) - [facility] MEDICARE NOVITAS [id number] 2008 [facility] 00:00:00 - [facility] AETNA MEDICARE [id number] [facility] Spi [facility] - [facility] LIFE C1 [id number] Common S pirit INS CO (Aetna) - [facility] AETNA MEDICARE C1 [id number] Common Spi rit [facility] MEDICARE NOVITAS [id number] 2008 [facility] 00:00:00 - [facility] AETNA MEDICARE C1 [id number] [facility]pi [facility] - [facility] LIFE C1 [id number] Common S pirit INS CO (Aetna) - [facility] MEDICARE NOVITAS MB [id number] 2008 [facility] 00:00:00 - [facility] AETNA MEDICARE C1 [id number] Common Spi [facility] - [facility] MEDICARE NOVITAS MB [id number] 2008 [facility] 00:00:00 - [facility] CONTINENTAL LIFE C1 [id number] Common S pirit INS CO (Aetna) - [facility] AETNA (MEDICARE [id number] 2013 REPLACEMENT PPO) 00:00:00 AETNA INDEMNITY [id number] 2019 00:00:00 Problems Condition Condition Condition Status [...] l STATUS STATUS Condition Active 2013-022014-07-02 Me moria POST POST 2-05 11:18:31 l HYSTERECTO HYSTERECTO 00:00: He eduardoann MY MY Active 00 01/10/2014 Condition 07/02/2014 [facility] LUMBAR LUMBAR Condition Active 2013-022014-07-02 Me moria RADICULOPA RADICULOPA 2-05 11:18:31 l THY THY 00:00: [place] Active 00 01/10/2014 Condition 07/02/2014 [facility] LOW BACK LOW BACK Condition Active 2013-022014-07-02 [facility] PAIN PAIN 2-05 11:18:31 l Active 00:00: [place] 01/10/2014 00 Condition 07/02/2014 [facility] LUMBAR [...] rs active active ity of problems problems [facility] Cervical Cervical Problem Active [facility] spine pain spine pain [facility] ans Lumbar Lumbar Problem Active [facility] spine pain spine pain [facility] ans Frequency Frequency Problem Com mon Spirit [facility] [id number] Constipati Problem Com mon on, Spirit unspecifie - CHI d constipati [facility] [id number] Memory Problem Common changes [facility] [id number] ZAINAB Problem Common (generaliz [facility] ed anxiety - CHI disorder) [facility] [id number] Mixed Problem Common hyperlipid [facility] emia [facility] [id number] Pulmonary Problem Comm on emphysema, Spirit unspecifie - CHI d emphysema [facility] [id number] Chronic Problem Commo n pain [facility] syndrome [facility] [id number] Gastro-eso Problem Co mmon phageal Spirit reflux - CHI disease [facility] esophagiti [facility] [id number] Pancreatic Problem Comm on abnormalit [facility] y [facility] [id number] 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 [facility] prior episode [id number] 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 [facility] Allergies, Adverse Reactions, Alerts Allergy Allergy [...] 2015-02 Univers INGREDI 02-16 ity of 00:00: [place] [id number] Medical Branch TAPE TAPE Active 2013-02 Memoria 2-05 l 00:00: Asud 00 LATEX LATEX Active 2013-02 Memoria 2-05 l 00:00: [place] 00 Hydrocod Propensi Active Hives itchy Method i one ty to [address] adverse 00:00: Hospita reaction 00 l s to drug Hydrocod Propensi Active Hives itchy Univer s one ty to 15 ity of adverse 00:00: [place] reaction 00 Medical s Branch HYDROCOD DRUG Active High Hives Univers ONE INGREDI 515 ity of 00:00: [place] 00 Medical Branch morphine morphine Active Rash Common [facility] [id number] Drug Active Rash Common allergy [facility] Family History Family Member Diagnosis Comments Start Date Stop Date Source Natural father Heart disease [facility] Natural mother Cancer [facility] Natural mother Pancreatic cancer [facility] Social History Social Habit Start Date Stop Date Quantity Comments Source Gender identity 2020-10-05 Identifies as Method ist 09:02:25 female gender [facility] (finding) Sexual orientation 2020-10-05 Method ist 09:02:25 Hospital Exposure to Not sure University of SARS-CoV-2 (event) [facility] History of tobacco Cigarette Smoker Gnosticism use Hospital Sex Assigned At Common lisseth [facility] Alcohol intake 2022-04-01 2022-04-01 Current drinker [facility] dist 00:00:00 00:00:00 of alcohol Hospital (finding) History of Social 2022-04-01 2022-04-[address] function 00:00:00 00:00:00 Hospital Cigarettes smoked 2022-03-23 2022-03-[address] current (pack per 00:00:00 00:00:00 Hospita l day) - Reported Cigarette 2022-03-23 2022-03-23 Gnosticism pack-years 00:00:00 00:00:00 Hospital Tobacco Comment 2022-03-23 2022-03-23 quit 40 years ago Me thodist 00:00:00 00:00:00 Hospital Tobacco use and 2022-03-23 2022-03-23 Smokeless tobacco Me [facility]ist exposure 00:00:00 00:00:00 non-user Hospital Smoking Status Start Date Stop Date Source Ex-smoker 2022-03-23 00:00:00 2022-03-23 00:00:00 [facility] Never smoker [facility] Medications Ordered Filled Start Stop Current Ordering Indication Dosage Frequency Signature Comments Components Source Medication Medication Date Date Medication? Clinician (SIG) Name Name pramipexole Yes 1.5mg QD Take 1.5 M ethodi (MIRAPEX) 1 2-[address] MG tablet 11:34: mouth Hospita 03 nightly. l multivitami 2022-0 Yes 1{tbl} QD Take 1 Me thodi n 2-[address] (THERAGRAN) 11:34: mouth Hospi ta tablet 03 daily. l pramipexole 0 Yes 1.5mg QD Take 1.5 M ethodi (MIRAPEX) 1 2-[address] MG tablet 11:34: mouth Hospita 03 nightly. l multivitami 2022-0 Yes 1{tbl} QD Take 1 Me thodi n 2-[address] (THERAGRAN) 11:34: mouth Hospi ta tablet 03 daily. l pramipexole 0 Yes 1.5mg QD Take 1.5 M ethodi (MIRAPEX) 1 2-[address] MG tablet 11:34: mouth Hospita 03 nightly. l multivitami 2022-0 Yes 1{tbl} QD Take 1 Me thodi n 2-[address] (THERAGRAN) 11:34: mouth Hospi ta tablet 03 daily. l traMADoL 2022-0 Yes 50mg Q6H Take 1 Methodi (ULTRAM) 50 2-10 tablet (50 st mg tablet 00:00: mg total) Hos fausto 00 by mouth l every 6 (six) hours as needed. traMADoL 2022-0 Yes 50mg Q6H Take 1 Methodi (ULTRAM) 50 2-10 tablet (50 st mg tablet 00:00: mg total) Hos fausto 00 by mouth l every 6 (six) hours as needed. traMADoL 2022-0 Yes 50mg Q6H Take 1 Methodi (ULTRAM) [...] 10 GM/15ML 00:00: 00:00 00 :00 pramipexole Yes 1mg QD Take 1 mg M ethodi (MIRAPEX) 1 5-[address] MG tablet 07:37: nightly. Hosp inés 08 l multivitami 0 Yes 1{tbl} QD Take 1 Me thodi n 5-[address] (THERAGRAN) 07:37: mouth Hospi ta tablet 08 daily. l atorvastati Yes 10mg QD Take 1 Meth floyd n (LIPITOR) 2-15 tablet (10 st 10 mg 00:00: mg total) Hospita tablet 00 by mouth l nightly. atorvastati 0 Yes 10mg QD Take 1 Meth floyd n (LIPITOR) 2-15 tablet (10 st 10 mg 00:00: mg total) Hospita tablet 00 by mouth l nightly. atorvastati 0 Yes 10mg QD Take 1 Meth floyd n (LIPITOR) 2-15 tablet (10 st 10 mg 00:00: mg total) Hospita tablet 00 by mouth l nightly. atorvastati 0 Yes 10mg QD Take 10 mg Methodi n (LIPITOR) 2-[address] 10 mg 00:00: daily. Hospita tablet 00 l Toradol Toradol 2020-02 No 15mg Common (Ketorolac) (Ketorolac) 2-14 S pirit 00:00: - [facility] Kenalog Kenalog 2020-02 No 40mg Common (Triamcinol (Triamcinol 2-14 S pirit one) one) 00:00: - [facility] Toradol Toradol 2020-02 No 15mg Common (Ketorolac) (Ketorolac) 2-14 S pirit 00:00: - [facility] Kenalog Kenalog 2020-02 No 40mg Common (Triamcinol (Triamcinol 2-14 S pirit one) one) 00:00: - CHI 00 [facility] Toradol Toradol 2020-02 No 15mg Common (Ketorolac) (Ketorolac) 2-14 S pirit 00:00: - CHI 00 [facility] 2020-02 No 40mg Common (Triamcinol (Triamcinol 2-14 S pirit one) one) 00:00: - CHI 00 [facility] Toradol Toradol 2020-02 No 15mg Common (Ketorolac) (Ketorolac) 2-14 S pirit 00:00: - CHI 00 [facility] 2020-02 No 40mg Common (Triamcinol (Triamcinol 2-14 S pirit one) one) 00:00: - CHI 00 [facility] Toradol Toradol 2020-02 No 15mg Common (Ketorolac) (Ketorolac) 2-14 S pirit 00:00: - CHI 00 [facility] 2020-02 No 40mg Common (Triamcinol (Triamcinol 2-14 S pirit one) one) 00:00: - CHI 00 [facility] Toradol Toradol 2020-02 No 15mg Common (Ketorolac) (Ketorolac) 2-14 S pirit 00:00: - CHI 00 [facility] 2020-02 No 40mg Common (Triamcinol (Triamcinol 2-14 S pirit one) one) 00:00: - CHI 00 [facility] Toradol Toradol 2020-02 No 15mg Common (Ketorolac) (Ketorolac) 2-14 S pirit 00:00: - CHI 00 [facility] 2020-02 No 40mg Common (Triamcinol (Triamcinol 2-14 S pirit one) one) 00:00: - CHI 00 [facility] Toradol Toradol 2020-02 No 15mg Common (Ketorolac) (Ketorolac) 2-14 S pirit 00:00: - CHI 00 [facility] 2020-02 No 40mg Common (Triamcinol (Triamcinol 2-14 S pirit one) one) 00:00: - CHI 00 [facility] Toradol Toradol 2020-02 No 15mg Common (Ketorolac) (Ketorolac) 2-14 S pirit 00:00: - CHI 00 [facility] Alma Marquez 2020-02 No 40mg Common (Triamcinol (Triamcinol 2-14 S pirit one) one) 00:00: - CHI 00 [facility] Toradol Toradol 2020-02 No 15mg Common (Ketorolac) (Ketorolac) 2-14 S pirit 00:00: - CHI 00 [facility] 2020-02 No 40mg Common (Triamcinol (Triamcinol 2-14 S pirit one) one) 00:00: - CHI 00 [facility] Toradol Toradol 2020-02 No 15mg Common (Ketorolac) (Ketorolac) 2-14 S pirit 00:00: - CHI 00 [facility] Alma Marquez 2020-02 No 40mg Common (Triamcinol (Triamcinol 2-14 S pirit one) one) 00:00: - CHI 00 [facility] Cyclobenzap Cyclobenzap 2020-02- No 1{table QD Cyclobenza rine HCl 10 rine HCl 10 03-22- t_at_be estelita HCl MG MG 00:00: 00:00 dtime_a 10 MG 00 :00 s_neede d} Cyclobenzap Cyclobenzap 2020-02- No 1{table QD Cyclobenza rine HCl 10 rine HCl 10 03-22- t_at_be estelita HCl MG MG 00:00: 00:00 dtime_a 10 MG 00 :00 s_neede d} Effexor XR Effexor XR 2020-0 No 1{capsu QD Effexor XR 75 MG 75 MG 7-07 le_with 75 MG 00:00: _food} 00 Effexor XR Effexor XR 2020-0 No 1{capsu QD Effexor XR 75 MG 75 MG 7-07 le_with 75 MG 00:00: _food} 00 methylPREDN 2020-1 Yes 84mg Take 21 Uni [...] by ity of tablet 00:00: mouth 2 [place] (two) Medical times Branch daily with meals. [...] s mg tablet 6- ity of 00:00: [place] 00 Medical Branch traMADol 50 2020-0 Yes Univer s mg tablet 6- ity of 00:00: [place] [facility] traMADol 50 2020-0 Yes Univer s mg tablet - ity of 00:00: [place] [facility] traMADol 50 2020-0 Yes Univer s mg tablet - ity of 00:00: [place] [facility] traMADol 50 2020-0 Yes Univer s mg tablet - ity of 00:00: [place] [facility] traMADol 50 2020-0 Yes Univer s mg tablet - ity of 00:00: [place] 00 Medical Branch traMADol 50 2020-0 Yes Univer s mg tablet - ity of 00:00: [place] 00 Medical Branch traMADol 50 2020-0 Yes Univer s mg tablet - ity of 00:00: [place] 00 Medical Branch DICLOFENAC 2020-0 Yes [id number] TAKE 1 U nivers 75 mg EC 4-10 TABLET BY ity of tablet 00:00: [facility] 00 TWICE Medical DAILY WITH Branch MEALS DICLOFENAC 2020-0 Yes [id number] TAKE 1 U nivers 75 mg EC 4-10 TABLET BY ity of tablet 00:00: MOUTH [place] TWICE Medical DAILY WITH Branch MEALS DICLOFENAC 2020-0 Yes [id number] TAKE 1 U nivers 75 mg EC 4-10 TABLET BY ity of tablet 00:00: MOUTH [place] 00 TWICE Medical DAILY WITH Branch MEALS DICLOFENAC 2020-0 Yes [id number] TAKE 1 U nivers 75 mg EC 4-10 TABLET BY ity of tablet 00:00: MOUTH [place] 00 TWICE Medical DAILY WITH Branch MEALS DICLOFENAC 2020-0 Yes [id number] TAKE 1 U nivers 75 mg EC 4-10 TABLET BY ity of tablet 00:00: MOUTH TWICE Medical DAILY WITH Branch MEALS DICLOFENAC 2020-0 Yes [id number] TAKE 1 U nivers 75 mg EC 4-10 TABLET BY ity of tablet 00:00: MOUTH 00 TWICE Medical DAILY WITH Branch MEALS DICLOFENAC 2020-0 Yes [id number] TAKE 1 U nivers 75 mg EC 4-10 TABLET BY ity of tablet 00:00: MOUTH 00 TWICE Medical DAILY WITH Branch MEALS DICLOFENAC 2020-0 Yes [id number] TAKE 1 U nivers 75 mg EC 4-10 TABLET BY ity of tablet 00:00: MOUTH 00 TWICE Medical DAILY WITH Branch MEALS DICLOFENAC 2020-0 Yes [id number] TAKE 1 U nivers 75 mg EC 4-10 TABLET BY ity of tablet 00:00: MOUTH 00 TWICE Medical DAILY WITH Branch MEALS DICLOFENAC 2020-0 Yes [id number] TAKE 1 U nivers 75 mg EC 4-10 TABLET BY ity of tablet 00:00: MOUTH TWICE Medical DAILY WITH Branch MEALS DICLOFENAC 2020-0 Yes [id number] TAKE 1 U nivers 75 mg EC [...] Branch daily with meals. diclofenac 2020-0 Yes [id number] 75mg Take 1 U nivers 75 mg EC 3-04 tablet by ity of tablet 00:00: mouth 00 (two) Medical times Branch daily with meals. diclofenac 2020-0 Yes [id number] 75mg Take 1 U nivers 75 mg EC 3-04 tablet by ity of tablet 00:00: mouth (two) Medical times Branch daily with meals. diclofenac 2020-0 Yes [id number] 75mg Take 1 U nivers 75 mg EC 3-04 tablet by ity of tablet 00:00: mouth 00 (two) Medical times Branch daily with meals. diclofenac 2020-0 Yes [id number] 75mg Take 1 U nivers 75 mg EC 3-04 tablet by ity of tablet 00:00: mouth 2 00 (two) Medical times Branch daily with meals. diclofenac 2020-0 Yes [id number] 75mg Take 1 U nivers 75 mg EC 3-04 tablet by ity of tablet 00:00: mouth [place] (two) Medical times Branch daily with meals. diclofenac 2020-0 Yes [id number] 75mg Take 1 U nivers 75 mg EC 3-04 tablet by ity of tablet 00:00: mouth [place] (two) Medical times Branch daily with meals. diclofenac 2020-0 Yes [id number] 75mg Take 1 U nivers 75 mg EC 3-04 tablet by ity of tablet 00:00: mouth (two) Medical times Branch daily with meals. diclofenac 2020-0 Yes [id number] 75mg Take 1 U nivers 75 mg EC 3-04 tablet by ity of tablet 00:00: mouth [place] (two) Medical times Branch daily with meals. diclofenac 2020-0 Yes [id number] 75mg Take 1 U nivers 75 mg EC 3-04 tablet by ity of tablet 00:00: mouth [place] (two) Medical times Branch daily with meals. diclofenac 2020-0 Yes [id number] 75mg Take 1 U nivers 75 mg EC 3-04 tablet by ity of tablet 00:00: mouth [place] (two) Medical times Branch daily with meals. diclofenac 2020-0 Yes [id number] 75mg Take 1 U nivers 75 mg EC 3-04 tablet by ity of tablet 00:00: mouth [place] (two) Medical times Branch daily with meals. diclofenac 2020-0 Yes [id number] 75mg Take 1 U nivers 75 mg EC 3-04 tablet by ity of tablet 00:00: mouth [place] (two) Medical times Branch daily with meals. diclofenac 2020-0 Yes [id number] 75mg Take 1 U nivers 75 mg EC 3-04 tablet by ity of tablet 00:00: mouth [place] (two) Medical times Branch daily with meals. diclofenac 2020-0 Yes [id number] 75mg Take 1 U nivers 75 mg EC 3-04 tablet by ity of tablet 00:00: mouth [place] (two) Medical times Branch daily with meals. diclofenac 2020-0 Yes [id number] 75mg Take 1 U nivers 75 mg EC 3-04 tablet by ity of tablet 00:00: mouth [place] [address] (two) [facility] daily with meals. ibuprofen 2020-0 Yes 600mg Take 600 Uni vers 600 mg 2-26 mg by ity of tablet 21:00: mouth. [address] ibuprofen 2020-0 Yes 600mg Take 600 Uni vers 600 mg 2-26 mg by ity of tablet 21:00: mouth. [address] ibuprofen 2020-0 Yes 600mg Take 600 Uni vers 600 mg 2-26 mg by ity of tablet 21:00: mouth. [address] ibuprofen 2020-0 Yes 600mg Take 600 Uni vers 600 mg 2-26 mg by ity of tablet 21:00: mouth. [address] ibuprofen 2020-0 Yes 600mg Take 600 Uni vers 600 mg 2-26 mg by ity of tablet 21:00: mouth. [address] ibuprofen 2020-0 Yes 600mg Take 600 Uni vers 600 mg 2-26 mg by ity of tablet 21:00: mouth. [address] ibuprofen 2020-0 Yes 600mg Take 600 Uni vers 600 mg 2-26 mg by ity of tablet 21:00: mouth. [address] ibuprofen 2020-0 Yes 600mg Take 600 Uni vers 600 mg 2-26 mg by ity of tablet 21:00: mouth. [address] ibuprofen 2020-0 Yes 600mg Take 600 Uni vers 600 mg 2-26 mg by ity of tablet 21:00: mouth. [address] ibuprofen 2020-0 Yes 600mg Take 600 Uni vers 600 mg 2-26 mg by ity of tablet 21:00: mouth. [address] ibuprofen 2020-0 Yes 600mg Take 600 Uni vers 600 mg 2-26 mg by ity of tablet 21:00: mouth. [address] ibuprofen 2020-0 Yes 600mg Take 600 Uni vers 600 mg 2-26 mg by ity of tablet 21:00: mouth. [address] ibuprofen 2020-0 Yes 600mg Take 600 Uni vers 600 mg 2-26 mg by ity of tablet 21:00: mouth. [address] ibuprofen 2020-0 Yes 600mg Take 600 Uni vers 600 mg 2-26 mg by ity of tablet 21:00: mouth. [address] ibuprofen 2020-0 Yes 600mg Take 600 Uni vers 600 mg 2-26 mg by ity of tablet 21:00: mouth. [address] ibuprofen 2020-0 Yes 600mg Take 600 Uni vers 600 mg 2-26 mg by ity of tablet 21:00: mouth. [address] ibuprofen 2020-0 Yes 600mg Take 600 Uni vers 600 mg 2-26 mg by ity of tablet 21:00: mouth. [address] ibuprofen 2020-0 Yes 600mg Take 600 Uni vers 600 mg 2-26 mg by ity of tablet 21:00: mouth. [address] diclofenac 2020-0 Yes [id number] 75mg Take 1 U nivers 75 mg EC 2-26 tablet by ity of tablet 00:00: mouth 2 [place] 00 (two) Medical times Branch daily with meals. diclofenac 2020-0 Yes [id number] 75mg Take 1 U nivers 75 mg EC 2-26 tablet by ity of tablet 00:00: mouth 2 [place] 00 (two) Medical times Branch daily with meals. diclofenac 2020-0 Yes [id number] 75mg Take 1 U nivers 75 mg EC 2-26 tablet by ity of tablet 00:00: mouth 2 [place] (two) Medical times [place] daily with meals. diclofenac 2020-0 2020- No [id number] 75mg Take 1 Univers 75 mg EC 2-26 03-04 tablet by ity o f tablet 00:00: 00:00 mouth 2 [place] 00 :00 (two) Medical times [place] daily with meals. SERTraline 2020-0 Yes Univers 50 mg 2-07 ity of tablet 00:00: [address] SERTraline 2020-0 Yes Univers 50 mg 2-07 ity of tablet 00:00: [address] SERTraline 2020-0 Yes Univers 50 mg 2-07 ity of tablet 00:00: [address] SERTraline 2020-0 Yes Univers 50 mg 2-07 ity of tablet 00:00: [address] SERTraline 2020-0 Yes Univers 50 mg 2-07 ity of tablet 00:00: [address] SERTraline 2020-0 Yes Univers 50 mg 2-07 ity of tablet 00:00: [address] SERTraline 2020-0 Yes Univers 50 mg 2-07 ity of tablet 00:00: [address] SERTraline 2020-0 Yes Univers 50 mg 2-07 ity of tablet 00:00: [address] SERTraline 2020-0 Yes Univers 50 mg 2-07 ity of tablet 00:00: [address] SERTraline 2020-0 Yes Univers 50 mg 2-07 ity of tablet 00:00: [address] SERTraline 2019-0 Yes Univers 50 mg 2-07 ity of tablet 00:00: [address] SERTraline 2019-0 Yes Univers 50 mg 2-07 ity of tablet 00:00: [address] SERTraline 2019-0 Yes Univers 50 mg 2-07 ity of tablet 00:00: [address] SERTraline 2019-0 Yes Univers 50 mg 2-07 ity of tablet 00:00: [address] SERTraline 2019-0 Yes Univers 50 mg 2-07 ity of tablet 00:00: [address] SERTraline 2019-0 Yes Univers 50 mg 2-07 ity of tablet 00:00: [address] SERTraline 2019-0 Yes Univers 50 mg 2-07 ity of tablet 00:00: [address] SERTraline 2019-0 Yes Univers 50 mg 2-07 ity of tablet 00:00: [address] iohexol 2019- No 25mL 25 mL, Univers (OMNIPAQUE 8-05 08-05 Oral, ity of 350 BULK) 14:30: 14:30 ONCE, 1 [place] 25 [place] 00 :00 dose, [facility] 09/10/18 at [place] 0930, Routine cholestyram Yes [id number] DISSOLVE 1 Univers ine light 8-04 SCOOPFUL ity of (CHOLESTYRA 00:00: IN FLUID [place] MINE LIGHT) 00 FOUR TIMES Me dical 4 gram DAILY. Branch powder cholestyram Yes [id number] DISSOLVE 1 Univers ine light 8-04 SCOOPFUL ity of (CHOLESTYRA 00:00: IN FLUID [place] MINE LIGHT) 00 FOUR TIMES Me dical 4 gram DAILY. Branch powder cholestyram 0 Yes [id number] DISSOLVE 1 Univers ine light 8-04 SCOOPFUL ity of (CHOLESTYRA 00:00: IN FLUID [place] MINE LIGHT) 00 FOUR TIMES Me dical 4 gram DAILY. Branch powder cholestyram 0 Yes [id number] DISSOLVE 1 Univers ine light 8-04 SCOOPFUL ity of (CHOLESTYRA 00:00: IN FLUID [place] MINE LIGHT) 00 FOUR TIMES Me dical 4 gram DAILY. Branch powder cholestyram Yes [id number] DISSOLVE 1 Univers ine light 8-04 SCOOPFUL ity of (CHOLESTYRA 00:00: IN FLUID [place] MINE LIGHT) 00 FOUR TIMES Me dical 4 gram DAILY. Branch powder cholestyram Yes [id number] DISSOLVE 1 Univers ine light 8-04 SCOOPFUL ity of (CHOLESTYRA 00:00: IN FLUID [place] MINE LIGHT) 00 FOUR TIMES Me dical 4 gram DAILY. Branch powder cholestyram Yes [id number] DISSOLVE 1 Univers ine light 8-04 SCOOPFUL ity of (CHOLESTYRA 00:00: IN FLUID [place] MINE LIGHT) 00 FOUR TIMES Me dical 4 gram DAILY. Branch powder cholestyram Yes [id number] DISSOLVE 1 Univers ine light 8-04 SCOOPFUL ity of (CHOLESTYRA 00:00: IN FLUID [place] MINE LIGHT) 00 FOUR TIMES Me dical 4 gram DAILY. Branch powder cholestyram Yes [id number] DISSOLVE 1 Univers ine light 8-04 SCOOPFUL ity of (CHOLESTYRA 00:00: IN FLUID [place] MINE LIGHT) 00 FOUR TIMES Me dical 4 gram DAILY. Branch powder cholestyram Yes [id number] DISSOLVE 1 Univers ine light 8-04 SCOOPFUL ity of (CHOLESTYRA 00:00: IN FLUID [place] MINE LIGHT) 00 FOUR TIMES Me dical 4 gram DAILY. Branch powder cholestyram Yes [id number] DISSOLVE 1 Univers ine light 8-04 SCOOPFUL ity of (CHOLESTYRA 00:00: IN FLUID [place] MINE LIGHT) 00 FOUR TIMES Me dical 4 gram DAILY. Branch powder cholestyram Yes [id number] DISSOLVE 1 Univers ine light 8-04 SCOOPFUL ity of (CHOLESTYRA 00:00: IN FLUID [place] MINE LIGHT) 00 FOUR TIMES Me dical 4 gram DAILY. Branch powder cholestyram Yes [id number] DISSOLVE 1 Univers ine light 8-04 SCOOPFUL ity of (CHOLESTYRA 00:00: IN FLUID [place] MINE LIGHT) 00 FOUR TIMES Me dical 4 gram DAILY. Branch powder cholestyram Yes [id number] DISSOLVE 1 Univers ine light 8-04 SCOOPFUL ity of (CHOLESTYRA 00:00: IN FLUID [place] MINE LIGHT) 00 FOUR TIMES Me dical 4 gram DAILY. Branch powder cholestyram Yes [id number] DISSOLVE 1 Univers ine light 8-04 SCOOPFUL ity of (CHOLESTYRA 00:00: IN [place]UID [place] MINE LIGHT) 00 FOUR TIMES Me dical 4 gram DAILY. Branch powder cholestyram Yes [id number] DISSOLVE 1 [facility] ine light 8-04 SCOOPFUL ity of (CHOLESTYRA 00:00: [place]UID [place] MINE LIGHT) 00 FOUR TIMES Me dical 4 gram DAILY. Branch powder cholestyram Yes [id number] DISSOLVE 1 [facility] ine light 8-04 SCOOPFUL ity of (CHOLESTYRA 00:00: [place] MINE LIGHT[place] 00 FOUR TIMES Me dical 4 gram DAILY. Branch powder cholestyram Yes [id number] DISSOLVE 1 [facility] ine light 8-04 SCOOPFUL ity of (CHOLESTYRA 00:00: [place] MINE LIGHT[place] 00 FOUR TIMES Me dical 4 gram DAILY. Branch powder cholestyram Yes [id number] DISSOLVE 1 [facility] ine light 8-04 SCOOPFUL ity of (CHOLESTYRA 00:00: [place] MINE LIGHT[place] 00 FOUR TIMES Me dical 4 gram DAILY. Branch powder cholestyram Yes [id number] DISSOLVE 1 [facility] ine light 8-04 SCOOPFUL ity of (CHOLESTYRA 00:00: [place]INE LIGHT[place] 00 FOUR TIMES Me dical 4 gram DAILY. Branch powder cholestyram Yes [id number] DISSOLVE 1 [facility] ine light 8-04 SCOOPFUL ity of (CHOLESTYRA 00:00: [place] MINE LIGHT[place] 00 FOUR TIMES Me dical 4 gram DAILY. Branch powder cholestyram Yes [id number] DISSOLVE 1 [facility] ine light 8-04 SCOOPFUL ity of (CHOLESTYRA 00:00: [place]UID [place] MINE LIGHT) 00 FOUR TIMES Me dical 4 gram DAILY. Branch powder cholestyram Yes [id number] DISSOLVE 1 [facility] ine light 8-04 SCOOPFUL ity of (CHOLESTYRA 00:00: [place] MINE LIGHT[place] 00 FOUR TIMES Me dical 4 gram DAILY. Branch powder cholestyram 2019- No [id number] 1 scoop 4 Univers ine light 4 8 08- times a ity of gram powder 00:00: 00:00 day. 00 :00 Medical Branch cholestyram 2019- No [id number] 1 scoop 4 Univers ine light 4 8- 08- times a ity of gram powder 00:00: 00:00 day. 00 :00 Medical Branch antiox.mv Yes Take by Unive rs no.10/omeg3 7-29 mouth. ity of s/lut/ifeanyi 15:09: [place] (I-CAPS 27 Medical ORAL) Branch MULTIVITAMI Yes Take by Uni vers N ORAL 7-29 mouth. ity of 15:09: [place] [address] Prevagen. Medical Branch antiox.mv Yes Take by Unive rs no.10/omeg3 7-29 mouth. ity of s/lut/ifeanyi 15:09: [place] (I-CAPS 27 Medical ORAL) Branch MULTIVITAMI Yes Take by Uni vers N ORAL 7-29 mouth. ity of 15:09: [place] [address] Prevagen. Medical Branch antiox.mv Yes Take by Unive rs no.10/omeg3 7-29 mouth. ity of s/lut/ifeanyi 15:09: [place] (I-CAPS 27 Medical ORAL) Branch MULTIVITAMI Yes Take by Uni vers N ORAL 7-29 mouth. ity of 15:09: [place] [address] Prevagen. Medical Branch antiox.mv Yes Take by Unive rs no.10/omeg3 7-29 mouth. ity of s/lut/ifeanyi 15:09: [place] (I-CAPS 27 Medical ORAL) Branch MULTIVITAMI Yes Take by Uni vers N ORAL 7-29 mouth. ity of 15:09: [place] Prevagen. Medical Branch antiox.mv Yes Take by Unive rs no.10/omeg3 7-29 mouth. ity of s/lut/ifeanyi 15:09: [place] (I-CAPS 27 Medical ORAL) Branch MULTIVITAMI Yes Take by Uni vers N ORAL 7-29 mouth. ity of 15:09: [place] [address] Prevagen. Medical Branch antiox.mv Yes Take by Unive rs no.10/omeg3 7-29 mouth. ity of s/lut/ifeanyi 15:09: [place] (ICAPS 27 Medical ORAL) Branch MULTIVITAMI Yes Take by Uni vers N ORAL 7-29 mouth. ity of 15:09: [place] [address] Prevagen. Medical Branch antiox.mv Yes Take by Unive rs no.10/omeg3 7-29 mouth. ity of s/lut/ifeanyi 15:09: [place] (ICAPS 27 Medical ORAL) Branch MULTIVITAMI Yes Take by Uni vers N ORAL 7-29 mouth. ity of 15:09: [place] [address] Prevagen. Medical Branch antiox.mv Yes Take by Unive rs no.10/omeg3 729 mouth. ity of s/lut/ifeanyi 15:09: [place] ([facility] 27 Medical ORAL) Branch MULTIVITAMI Yes Take by Uni vers N ORAL 7-29 mouth. ity of 15:09: [place] [address] Prevagen. Medical Branch antiox.mv Yes Take by Unive rs no.10/omeg3 729 mouth. ity of s/lut/ifeanyi 15:09: [place] (ICAPS 27 Medical ORAL) Branch MULTIVITAMI Yes Take by Uni vers N ORAL 7-29 mouth. ity of 15:09: [place] [address] Prevagen. Medical Branch antiox.mv Yes Take by Unive rs no.10/omeg3 7-29 mouth. ity of s/lut/ifeanyi 15:09: [place] (ICAPS 27 Medical ORAL) Branch MULTIVITAMI Yes Take by Uni vers N ORAL 7-29 mouth. ity of 15:09: Takes [place] 27 Prevagen. Medical Branch antiox.mv Yes Take by Unive rs no.10/omeg3 7-29 mouth. ity of s/lut/ifeanyi 15:09: [place] (ICAPS 27 Medical ORAL) Branch MULTIVITAMI Yes Take by Uni vers N ORAL 7-29 mouth. ity of 15:09: [place] [address] Prevagen. Medical Branch antiox.mv Yes Take by Unive rs no.10/omeg3 7-29 mouth. ity of s/lut/ifeanyi 15:09: [place] (ICAPS 27 Medical ORAL) Branch MULTIVITAMI Yes Take by Uni vers N ORAL 7-29 mouth. ity of 15:09: [place] [address] Prevagen. Medical Branch antiox.mv Yes Take by Unive rs no.10/omeg3 7-29 mouth. ity of s/lut/ifeanyi 15:09: [place] ([facility] 27 Medical ORAL) Branch MULTIVITAMI Yes Take by Uni vers N ORAL 7-29 mouth. ity of 15:09: [place] [address] Prevagen. Medical Branch antiox.mv Yes Take by Unive rs no.10/omeg3 729 mouth. ity of s/lut/ifeanyi 15:09: [place] ([facility] 27 Medical ORAL) Branch MULTIVITAMI Yes Take by Uni vers N ORAL 7-29 mouth. ity of 15:09: [place] [address] Prevagen. Medical Branch antiox.mv Yes Take by Unive rs no.10/omeg3 7-29 mouth. ity of s/lut/ifeanyi 15:09: [place] (ICAPS 27 Medical ORAL) Branch MULTIVITAMI Yes Take by Uni vers N ORAL 7-29 mouth. ity of 15:09: [place] [address] Prevagen. Medical Branch antiox.mv Yes Take by Unive rs no.10/omeg3 7-29 mouth. ity of s/lut/ifeanyi 15:09: [place] ([facility] 27 Medical ORAL) Branch antiox.mv Yes Take by Unive rs no.10/omeg3 7-29 mouth. ity of s/lut/ifeanyi 15:09: [place] (ICAPS 27 Medical ORAL) Branch MULTIVITAMI Yes Take by Uni vers N ORAL 7-29 mouth. ity of 15:09: [place] [address] Prevagen. Medical Branch MULTIVITAMI Yes Take by Uni vers N ORAL 7-29 mouth. ity of 15:09: [place] [address] Prevagen. Medical Branch antiox.mv Yes Take by Unive rs no.10/omeg3 7-29 mouth. ity of s/lut/ifeanyi 15:09: [place] ([facility] 27 Medical ORAL) Branch MULTIVITAMI Yes Take by Uni vers N ORAL 7-29 mouth. ity of 15:09: [place] [address] Prevagen. Medical Branch antiox.mv Yes Take by Unive rs no.10/omeg3 7-29 mouth. ity of s/lut/ifeanyi 15:09: [place] ([facility] 27 Medical ORAL) Branch MULTIVITAMI Yes Take by Uni vers N ORAL 7-29 mouth. ity of 15:09: [place] [address] Prevagen. Medical Branch antiox.mv Yes Take by Unive rs no.10/omeg3 7-29 mouth. ity of s/lut/ifeanyi 15:09: [place] ([facility] 27 Medical ORAL) Branch MULTIVITAMI Yes Take by Uni vers N ORAL 7-29 mouth. ity of 15:09: [place] [address] Prevagen. Medical Branch antiox.mv Yes Take by Unive rs no.10/omeg3 729 mouth. ity of s/lut/ifeanyi 15:09: [place] ([facility] 27 Medical ORAL) Branch MULTIVITAMI Yes Take by Uni vers N ORAL 7-29 mouth. ity of 15:09: [place] [address] Prevagen. Medical Branch antiox.mv Yes Take by Unive rs no.10/omeg3 729 mouth. ity of s/lut/ifeanyi 15:09: [place] ([facility] 27 Medical ORAL) Branch MULTIVITAMI Yes Take by Uni vers N ORAL 7-29 mouth. ity of 15:09: [place] [address] Prevagen. Medical Branch antiox.mv Yes Take by Unive rs no.10/omeg3 7-29 mouth. ity of s/lut/ifeanyi 15:09: [place] ([facility] 27 Medical ORAL) Branch MULTIVITAMI Yes Take by Uni vers N ORAL 7-29 mouth. ity of 15:09: [place] [address] Prevagen. Medical Branch antiox.mv Yes Take by Unive rs no.10/omeg3 7-29 mouth. ity of s/lut/ifeanyi 15:09: [place] (I-CAPS 27 Medical ORAL) Branch MULTIVITAMI Yes Take by Uni vers N ORAL 7-29 mouth. ity of 15:09: [place] 27 Prevagen. Medical Branch antiox.mv Yes Take by Unive rs no.10/omeg3 7-29 mouth. ity of s/lut/ifeanyi 15:09: [place] (I-CAPS 27 Medical ORAL) Branch MULTIVITAMI Yes Take by Uni vers N ORAL 7-29 mouth. ity of 15:09: [place] 27 Prevagen. Medical Branch antiox.mv Yes Take by Unive rs no.10/omeg3 7-29 mouth. ity of s/lut/ifeanyi 15:09: [place] (I-CAPS 27 Medical ORAL) Branch MULTIVITAMI Yes Take by Uni vers N ORAL 7-29 mouth. ity of 15:09: [place] [address] Prevagen. Medical Branch antiox.mv Yes Take by Unive rs no.10/omeg3 7-29 mouth. ity of s/lut/ifeanyi 15:09: [place] (I-CAPS 27 Medical ORAL) Branch MULTIVITAMI Yes Take by Uni vers N ORAL 7-29 mouth. ity of 15:09: T[place] 27 Prevagen. [facility] Branch multivitami Yes 1{tbl} Take 1 Un kathie n tablet 7-29 tablet by ity of 14:26: mouth. [address] multivitami Yes 1{tbl} Take 1 Un kathie n tablet 7-29 tablet by ity of 14:26: mouth. [address] multivitami Yes 1{tbl} Take 1 Un [place]ath[place] n tablet 7-29 tablet by ity of 14:26: mouth. [address] multivitami Yes 1{tbl} Take 1 Un [place] n tablet 7-29 tablet by ity of 14:26: mouth. [address] multivitami Yes 1{tbl} Take 1 [place] n tablet 7-29 tablet by ity of 14:26: mouth. [address] multivitami Yes 1{tbl} Take 1 Un [place]athie n tablet 7-29 tablet by ity of 14:26: mouth. [address] multivitami Yes 1{tbl} Take 1 Un [place]ath[place] n tablet 7-29 tablet by ity of 14:26: mouth. [address] multivitami Yes 1{tbl} Take 1 [place] n tablet 7-29 tablet by ity of 14:26: mouth. [address] multivitami Yes 1{tbl} Take 1 [place] n tablet 7-29 tablet by ity of 14:26: mouth. [address] multivitami Yes 1{tbl} Take 1 [place] n tablet 7-29 tablet by ity of 14:26: mouth. [address] multivitami Yes 1{tbl} Take 1 [place] n tablet 7-29 tablet by ity of 14:26: mouth. [address] [facility] Take 1 Un [place]athie n tablet 7-29 tablet by ity of 14:26: mouth. [address] multivitami Yes 1{tbl} Take 1 Un [place]athie n tablet 7-29 tablet by ity of 14:26: mouth. [address] multivitami Yes 1{tbl} Take 1 [place] n tablet 7-29 tablet by ity of 14:26: mouth. [address] multivitami Yes 1{tbl} Take 1 Un [place] n tablet 7-29 tablet by ity of 14:26: mouth. [address] multivitami Yes 1{tbl} Take 1 Un [place] n tablet 7-29 tablet by ity of 14:26: mouth. [address] multivitami Yes 1{tbl} Take 1 Un [place]athie n tablet 7-29 tablet by ity of 14:26: mouth. [address] multivitami Yes 1{tbl} Take 1 Un [place]athie n tablet 7-29 tablet by ity of 14:26: mouth. [address] multivitact Yes 1{tbl} Take 1 Un [place]athie n tablet 7-29 tablet by ity of 14:26: mouth. [address] multivitami Yes 1{tbl} Take 1 Un [place]athie n tablet 7-29 tablet by ity of 14:26: mouth. [address] Branch multivitami Yes 1{tbl} Take 1 Un [place]athie n tablet 7-29 tablet by ity of 14:26: mouth. [address] Branch multivitami Yes 1{tbl} Take 1 Un kathie n tablet 7-29 tablet by ity of 14:26: mouth. [address] Branch multivitami Yes 1{tbl} Take 1 Un [place]ath[place] n tablet 7-29 tablet by ity of 14:26: mouth. [address] Branch multivitami Yes 1{tbl} Take 1 Un [place]athie n tablet 7-29 tablet by ity of 14:26: mouth. [address] Branch multivitami Yes 1{tbl} Take 1 Un [place]athie n tablet 7-29 tablet by ity of 14:26: mouth. [address] Branch multivitami Yes 1{tbl} Take 1 [place] n tablet 7-29 tablet by ity of 14:26: mouth. [address] Branch multivitami Yes 1{tbl} Take 1 Un kathie n tablet 7-29 tablet by ity of 14:26: mouth. [address] Branch VENLAFAXINE Yes Take by Uni vers [...] mouth. ity of (EFFEXOR 14:26: [place] ORAL) [facility] VENLAFAXINE Yes Take by Uni vers HCL 7-29 mouth. ity of (EFFEXOR 14:26: [place] ORAL) Medical Branch VENLAFAXINE Yes Take by Uni vers HCL 7-29 mouth. ity of (EFFEXOR 14:26: [place] ORAL) [facility] Branch VENLAFAXINE Yes Take by Uni vers HCL 7-29 mouth. ity of (EFFEXOR 14:26: [place] ORAL) [facility] Branch VENLAFAXINE Yes Take by Uni vers HCL 7-29 mouth. ity of (EFFEXOR 14:26: [place] ORAL) [facility] VENLAFAXINE Yes Take by Uni vers HCL 7-29 mouth. ity of (EFFEXOR 14:26: [place] ORAL) [facility] Branch methylPREDN Yes [id number] 84mg Take 21 Univers ISolone 3-21 9103 tablets by ity of (MEDROL, 00:00: mouth [place] EVANGELINA,) 4 mg 00 SEE-INSTRU Med ical tablets CTIONS. Branch follow package directions methylPREDN 2019- No [id number] 84mg Take 21 Univers ISolone 3-21 07-29 9103 tablets by ity o f (MEDROL, 00:00: 00:00 mouth [place] EVANGELINA,) 4 mg 00 :00 SEE-INSTRU Med ical tablets CTIONS. Branch follow package directions methylPREDN 2019- No [id number] 84mg Take 21 Univers ISolone 3-21 07-29 9103 tablets by ity o f (MEDROL, 00:00: 00:00 mouth [place] EVANGELINA,) 4 mg 00 :00 SEE-INSTRU Med ical tablets CTIONS. Branch follow package directions traMADOL 50 2017-02 Yes 50mg Take 1 Univ ers mg tablet 2-12 tablet by ity o f 00:00: mouth [place] 00 every 6 Medical (six) Branch hours as needed for Pain (scale 4-6). traMADOL 50 2017-02 2019- No 50mg Take 1 Uni vers mg tablet 03-20 tablet by ity of 00:00: 00:00 mouth [place] 00 :00 every 6 Medical (six) Branch hours as needed for Pain (scale 4-6). traMADOL 50 2017-02 2019- No 50mg Take 1 Uni vers mg tablet 03-20 tablet by ity of 00:00: 00:00 mouth [place] 00 :00 every 6 Medical (six) Branch hours as needed for Pain (scale 4-6). diazePAM 5 2017-02 Yes Univers mg tablet 0-20 ity of 00:00: [place] [facility] Branch Oxycodone 2017-02 Yes Univers 10 mg Tab 0-20 ity of 00:00: [place] [facility] diazePAM 5 2017-02 Yes Univers mg tablet 0-20 ity of 00:00: [place] [facility] Oxycodone 2017-02 Yes Univers 10 mg Tab 0-20 ity of 00:00: [place] [address] Medical Branch diazePAM 5 2017-02 Yes Univers mg tablet 0-20 ity of 00:00: [place] [facility] Oxycodone 2017-02 Yes Univers 10 mg Tab 0-20 ity of 00:00: [place] [address] Medical Branch diazePAM 5 2017-02 Yes Univers mg tablet 0-20 ity of 00:00: [place] [facility] Oxycodone 2017-02 Yes Univers 10 mg Tab 0-20 ity of 00:00: [place] [address] Medical Branch diazePAM 5 2017-02 Yes Univers mg tablet 0-20 ity of 00:00: [place] [facility] Oxycodone 2017-02 Yes Univers 10 mg Tab 0-20 ity of 00:00: [place] [facility] diazePAM 5 2017-02 Yes Univers mg tablet 0-20 ity of 00:00: [place] [facility] Oxycodone 2017-02 Yes Univers 10 mg Tab 0-20 ity of 00:00: [place] [facility] diazePAM 5 2017-02 Yes Univers mg tablet 0-20 ity of 00:00: [place] [facility] Oxycodone 2017-02 Yes Univers 10 mg Tab 0-20 ity of 00:00: [place] [address] Medical Branch diazePAM 5 2017-02 Yes Univers mg tablet 0-20 ity of 00:00: [place] [address] Medical Branch Oxycodone 2017-02 Yes Univers 10 mg Tab 0-20 ity of 00:00: [place] [address] Medical Branch diazePAM 5 2017-02 Yes Univers mg tablet 0-20 ity of 00:00: Medical Branch Oxycodone 2017-02 Yes Univers 10 mg Tab 0-20 ity of 00:00: [place] [facility] diazePAM 5 2017-02 Yes Univers mg tablet 0-20 ity of 00:00: Medical Branch Oxycodone 2017-02 Yes Univers 10 mg Tab 0-20 ity of 00:00: [place] [facility] diazePAM 5 2017-02 Yes Univers mg tablet 0-20 ity of 00:00: [place] [facility] Oxycodone 2017-02 Yes Univers 10 mg Tab 0-20 ity of 00:00: [place] [facility] diazePAM 5 2017-02 Yes Univers mg tablet 0-20 ity of 00:00: [place] [facility] Oxycodone 2017-02 Yes Univers 10 mg Tab 0-20 ity of 00:00: [place] [facility] diazePAM 5 2017-02 Yes Univers mg tablet 0-20 ity of 00:00: [place] [facility] Oxycodone 2017-02 Yes Univers 10 mg Tab 0-20 ity of 00:00: [place] [facility] diazePAM 5 2017-02 Yes Univers mg tablet 0-20 ity of 00:00: [place] [facility] Oxycodone 2017-02 Yes Univers 10 mg Tab 0-20 ity of 00:00: [place] [facility] diazePAM 5 2017-02 Yes Univers mg tablet 0-20 ity of 00:00: [place] [facility] Oxycodone 2017-02 Yes Univers 10 mg Tab 0-20 ity of 00:00: [place] [facility] diazePAM 5 2017-02 Yes Univers mg tablet 0-20 ity of 00:00: [place] [facility] Oxycodone 2017-02 Yes Univers 10 mg Tab 0-20 ity of 00:00: [place] [facility] diazePAM 5 2017-02 Yes Univers mg tablet 0-20 ity of 00:00: [place] [facility] Oxycodone 2017-02 Yes Univers 10 mg Tab 0-20 ity of 00:00: [place] [facility] diazePAM 5 2017-02 Yes Univers mg tablet 0-20 ity of 00:00: Medical Branch Oxycodone 2017-02 Yes Univers 10 mg Tab 0-20 ity of 00:00: [place] [facility] venlafaxine 20180 Yes 150mg QD Take 1 [facility] X[facility] (EFFEXOR-XR 00:00: (150 mg Hos fausto ) 150 MG 24 00 total) by l hr capsule mouth nightly. venlafaxine 20180 Yes 150mg QD Take 1 Met hodi XR 8-[address] (EFFEXOR-XR 00:00: (150 mg Hos fausto ) 150 MG 24 00 total) by l hr capsule mouth nightly. venlafaxine 0 Yes 150mg QD Take 1 Met hodi XR 8-[address] (EFFEXOR-XR 00:00: (150 mg Hos fausto ) 150 MG 24 00 total) by l hr capsule mouth nightly. venlafaxine 0 Yes Method i XR 8-20 st (EFFEXOR-XR 00:00: Hospit a ) 150 MG 24 00 l hr capsule rOPINIRole 2016-02 Yes TK 1 T PO Un kathie 0.5 mg 1-21 QHS ity of tablet 00:00: [place] [facility] rOPINIRole 2017 Yes TK 1 T PO Un kathie 0.5 mg 1-21 QHS ity of tablet 00:00: [place] [facility] rOPINIRole 2016-02 Yes TK 1 T PO Un kathie 0.5 mg 1-21 QHS ity of tablet 00:00: [place] [facility] rOPINIRole 2017 Yes TK 1 T PO Un kathie 0.5 mg 1-21 QHS ity of tablet 00:00: [place] [facility] rOPINIRole 2016-02 Yes TK 1 T PO Un kathie 0.5 mg 1-21 QHS ity of tablet 00:00: [place] [facility] rOPINIRole 2016-02 Yes TK 1 T PO Un kathie 0.5 mg 1-21 QHS ity of tablet 00:00: [place] [facility] rOPINIRole 2016-02 Yes TK 1 T PO Un kathie 0.5 mg 1-21 QHS ity of tablet 00:00: [place] [facility] rOPINIRole 2016-02 Yes TK 1 T PO Un kathie 0.5 mg 1-21 QHS ity of tablet 00:00: [address] rOPINIRole 2016-02 Yes TK 1 T PO Un kathie 0.5 mg 1-21 QHS ity of tablet 00:00: [address] rOPINIRole 2016-02 Yes TK 1 T PO Un kathie 0.5 mg 1-21 QHS ity of tablet 00:00: [place] 00 [facility] Branch rOPINIRole 2017- Yes TK 1 T PO Un kathie 0.5 mg 1-21 QHS ity of tablet 00:00: [place] 00 [facility] Branch rOPINIRole 2017 Yes TK 1 T PO Un kathie 0.5 mg 1-21 QHS ity of tablet 00:00: [place] [facility] rOPINIRole 2017- Yes TK 1 T PO Un kathie 0.5 mg 1-21 QHS ity of tablet 00:00: [place] [facility] Branch rOPINIRole 2017 Yes TK 1 T PO Un kathie 0.5 mg 1-21 QHS ity of tablet 00:00: [place] 00 [facility] Branch rOPINIRole 2017 Yes TK 1 T PO Un kathie 0.5 mg 1-21 QHS ity of tablet 00:00: [place] [facility] rOPINIRole 2017- Yes TK 1 T PO Un kathie 0.5 mg 1-21 QHS ity of tablet 00:00: [place] [facility] rOPINIRole 2017 Yes TK 1 T PO Un kathie 0.5 mg 1-21 QHS ity of tablet 00:00: [place] [facility] Branch rOPINIRole 2017- Yes TK 1 T PO Un kathie 0.5 mg 1-21 QHS ity of tablet 00:00: [place] 00 [facility] VENLAFAXINE 2015-02 Yes Take by Uni vers [...] Yes 10mg Take 1 Univ ers rine -11 tablet by ity of (FLEXERIL) 00:00: [place] 00 (three) Medical tablet times Branch daily as needed for Muscle Spasms. cyclobenzap 2015-02- No 10mg Take 1 Uni vers rine 02-16 tablet by ity of (FLEXERIL) 00:00: 00:00 mouth 3 [place] 10 mg 00 :00 (three) Medical tablet times Branch daily as needed for Muscle Spasms. cyclobenzap 2015-02- No 10mg Take 1 Uni vers rine 02-16 tablet by ity of (FLEXERIL) 00:00: 00:00 mouth 3 [place] 10 mg 00 :00 (three) Medical tablet times Branch daily as needed for Muscle Spasms. pramipexole 2015-02 Yes TK 2 TS PO Univers (MIRAPEX) 1 0-03 QHS ity of mg tablet 00:00: [address] pramipexole 2015-02 Yes TK 2 TS PO Univers (MIRAPEX) 1 0-03 QHS ity of mg tablet 00:00: [address] pramipexole 2015-02 Yes TK 2 TS PO Univers (MIRAPEX) 1 0-03 QHS ity of mg tablet 00:00: [address] pramipexole 2015-02 Yes TK 2 TS PO Univers (MIRAPEX) 1 0-03 QHS ity of mg tablet 00:00: [place] [facility] pramipexole 2015-02 Yes TK 2 TS PO Univers (MIRAPEX) 1 0-03 QHS ity of mg tablet 00:00: [address] pramipexole 2015-02 Yes TK 2 TS PO Univers (MIRAPEX) 1 0-03 QHS ity of mg tablet 00:00: [address] pramipexole 2015-02 Yes TK 2 TS PO Univers (MIRAPEX) 1 0-03 QHS ity of mg tablet 00:00: [address] pramipexole 2015-02 Yes TK 2 TS PO Univers (MIRAPEX) 1 0-03 QHS ity of mg tablet 00:00: [place] 00 Medical Branch pramipexole 2016- Yes TK 2 TS PO Univers (MIRAPEX) 1 0-03 QHS ity of mg tablet 00:00: [place] 00 Medical Branch pramipexole 2016- Yes TK 2 TS PO Univers (MIRAPEX) 1 0-03 QHS ity of mg tablet 00:00: [place] 00 [facility] Branch pramipexole 2016- Yes TK 2 TS PO Univers (MIRAPEX) 1 0-03 QHS ity of mg tablet 00:00: [place] 00 Medical Branch pramipexole 2016- Yes TK 2 TS PO Univers (MIRAPEX) 1 0-03 QHS ity of mg tablet 00:00: [place] 00 [facility] Branch pramipexole 2016- Yes TK 2 TS PO Univers (MIRAPEX) 1 0-03 QHS ity of mg tablet 00:00: [place] 00 [facility] pramipexole 2016- Yes TK 2 TS PO Univers (MIRAPEX) 1 0-03 QHS ity of mg tablet 00:00: [place] 00 [facility] pramipexole 2016- Yes TK 2 TS PO Univers (MIRAPEX) 1 0-03 QHS ity of mg tablet 00:00: [place] 00 [facility] pramipexole 2016- Yes TK 2 TS PO Univers (MIRAPEX) 1 0-03 QHS ity of mg tablet 00:00: [place] 00 [facility] pramipexole 2016- Yes TK 2 TS PO Univers (MIRAPEX) 1 0-03 QHS ity of mg tablet 00:00: [place] 00 [facility] pramipexole 2016- Yes TK 2 TS PO Univers (MIRAPEX) 1 0-03 QHS ity of mg tablet 00:00: [place] 00 Medical Branch pramipexole 2016- Yes TK 2 TS PO Univers (MIRAPEX) 1 0-03 QHS ity of mg tablet 00:00: [place] 00 [facility] pramipexole 2016- Yes TK 2 TS PO Univers (MIRAPEX) 1 0-03 QHS ity of mg tablet 00:00: [place] 00 [facility] Branch pramipexole 2016- Yes TK 2 TS PO Univers (MIRAPEX) 1 0-03 QHS ity of mg tablet 00:00: [address] pramipexole 2016 Yes TK 2 TS PO Univers (MIRAPEX) 1 0-03 QHS ity of mg tablet 00:00: [address] pramipexole 2016 Yes TK 2 TS PO Univers (MIRAPEX) 1 0-03 QHS ity of mg tablet 00:00: [address] pramipexole 2016 Yes TK 2 TS PO Univers (MIRAPEX) 1 0-03 QHS ity of mg tablet 00:00: [address] pramipexole 2016 Yes TK 2 TS PO Univers (MIRAPEX) 1 0-03 QHS ity of mg tablet 00:00: [address] pramipexole 2016 Yes TK 2 TS PO Univers (MIRAPEX) 1 0-03 QHS ity of mg tablet 00:00: [address] pramipexole 2016 Yes TK 2 TS PO Univers (MIRAPEX) 1 0-03 QHS ity of mg tablet 00:00: [address] pramipexole 2015-02 Yes TK 2 TS PO Univers (MIRAPEX) 1 0-03 QHS ity of mg tablet 00:00: [address] MOBIC 15 MG 2015-0 Yes 1 tab po Me moria TABS 5-27 qd l 00:00: CYCLOBENZAP 0 Yes 1 tab po q [facility] RINE HCL 5 5-27 8 hrs prn l MG TABS 00:00: muscle spasms CELEBREX 2013-02 No 1 cap po Mem[facility] ia 100 MG CAPS 2-05 bid l 00:00: MIRAPEX 1 2013-02 Yes daily [facility] MG TABS 2-05 l 00:00: EFFEXOR XR 2013-02 Yes [facility] [id number] 2-05 l 00:00: Effexor XR Effexor XR No [...] (PPSV23) 2017-11-15 Completed [facility] - 15:30:00 [facility] Pneumovax (PPSV23) Pneumovax (PPSV23) 2017-11-15 Completed [facility] - 15:30:00 [facility] Pneumovax (PPSV23) Pneumovax (PPSV23) 2017-11-15 Completed [facility] - 15:30:00 [facility] Pneumovax (PPSV23) Pneumovax (PPSV23) 2017-11-15 Completed [facility] - 15:30:00 [facility] Pneumovax (PPSV23) Pneumovax (PPSV23) 2017-11-15 Completed [facility] - 15:30:00 [facility] Pneumovax (PPSV23) Pneumovax (PPSV23) 2017-11-15 Completed [facility] - 15:30:00 [facility] Pneumovax (PPSV23) Pneumovax (PPSV23) 2017-11-15 Completed [facility] - 15:30:00 [facility] Pneumovax (PPSV23) Pneumovax (PPSV23) 2017-11-15 Completed [facility] - 15:30:00 [facility] Pneumovax (PPSV23) Pneumovax (PPSV23) 2017-11-15 Completed [facility] - 15:30:00 [facility] Pneumovax (PPSV23) Pneumovax (PPSV23) 2017-11-15 Completed [facility] - 15:30:00 [facility] Pneumovax (PPSV23) Pneumovax (PPSV23) 2017-11-15 Completed [facility] - 15:30:00 [facility] Pneumovax (PPSV23) Pneumovax (PPSV23) 2017-11-15 [facility]pleted [facility]00 [facility] Pneumovax (PPSV23) Pneumovax (PPSV23) 2017-11-15 Completed [facility]00 [facility] Pneumovax (PPSV23) Pneumovax (PPSV23) 2017-11-15 Completed [facility] 15:30:00 [facility] Pneumovax (PPSV23) Pneumovax (PPSV23) 2017-11-15 Completed [facility] 15:30:00 [facility] Pneumovax (PPSV23) Pneumovax (PPSV23) 2017-11-15 Completed [facility] 15:30:00 [facility] Pneumovax (PPSV23) Pneumovax (PPSV23) 2017-11-15 Completed [facility] 15:30:00 [facility] Pneumovax (PPSV23) Pneumovax (PPSV23) 2017-11-15 Completed [facility] 15:30:00 [facility] Pneumovax (PPSV23) Pneumovax (PPSV23) 2017-11-15 Completed [facility] 15:30:00 [facility] Pneumovax (PPSV23) Pneumovax (PPSV23) 2017-11-15 Completed [facility] 15:30:00 [facility] Pneumococcal 2017-11-15 Completed [facility] 00:[facility]:00 [facility] Pneumococcal 2017-11-15 Completed [facility] 00:00:00 Hospital Pneumococcal 2017-11-15 Completed [facility] 00:00:00 Hospital Vital Signs Vital Name Observation Time Observation Value Comments Source height 2022-02-03 09:40:00 69 [in_i] [facility] weight 2022-02-03 09:40:00 166.0 [lb_av] [facility] temperature 2022-02-03 09:40:00 97.9 [degF] Common [facility] bmi 2022-02-03 09:40:00 24.51 kg/m2 [facility] oximetry 2022-02-03 09:40:00 99 % [facility] respiratory rate 2022-02-03 09:40:00 17 /min Comm on [facility] blood pressure 2022-02-03 09:40:00 138 mm[Hg] Common [facility] - systolic [facility] blood pressure 2022-02-03 09:40:00 71 mm[Hg] Common [facility] - diastolic [facility] height 2021-11-15 15:00:00 69 [in_i] Common [facility] weight 2021-11-15 15:00:00 165 [lb_av] [facility] temperature 2021-11-15 15:00:00 97.3 [degF] [facility] bmi 2021-11-15 15:00:00 24.36 kg/m2 [facility] oximetry 2021-11-15 15:00:00 99 % [facility] respiratory rate 2021-11-15 15:00:00 18 /min Comm on [facility] blood pressure 2021-11-15 15:00:00 132 mm[Hg] Common [facility] - systolic [facility] blood pressure 2021-11-15 15:00:00 62 mm[Hg] Common [facility] - diastolic [facility] height 2021-08-06 10:00:00 69 [in_i] Common [facility] weight 2021-08-06 10:00:00 165.3 [lb_av] [facility] temperature 2021-08-06 10:00:00 97.5 [degF] Common [facility] bmi 2021-08-06 10:00:00 24.41 kg/m2 [facility] oximetry 2021-08-06 10:00:00 98 % [facility] respiratory rate 2021-08-06 10:00:00 18 /min Comm on [facility] blood pressure 2021-08-06 10:00:00 128 mm[Hg] Common [facility] - systolic [facility] blood pressure 2021-08-06 10:00:00 56 mm[Hg] Common [facility] - diastolic [facility] height 2021-05-04 13:40:00 69 [in_i] [facility] weight 2021-05-04 13:40:00 172.8 [lb_av] [facility] temperature 2021-05-04 13:40:00 97.7 [degF] Common [facility] bmi 2021-05-04 13:40:00 25.52 kg/m2 [facility] oximetry 2021-05-04 13:40:00 97 % Common [facility] respiratory rate 2021-05-04 13:40:00 17 /min Comm on [facility] blood pressure 2021-05-04 13:40:00 129 mm[Hg] Common [facility] - systolic [facility] blood pressure 2021-05-04 13:40:00 60 mm[Hg] Common [facility] - diastolic [facility] height 2021-03-23 14:10:00 69 [in_i] [facility] weight 2021-03-23 14:10:00 179.3 [lb_av] [facility] temperature 2021-03-23 14:10:00 97.5 [degF] [facility] bmi 2021-03-23 14:10:00 26.48 kg/m2 [facility] oximetry 2021-03-23 14:10:00 99 % Common [facility] respiratory rate 2021-03-23 14:10:00 17 /min Comm on [facility] blood pressure 2021-03-23 14:10:00 119 mm[Hg] [facility] systolic [facility] blood pressure 2021-03-23 14:10:00 65 mm[Hg] [facility] - diastolic [facility] height 2021-03-23 14:20:00 69 [in_i] [facility] weight 2021-03-23 14:20:00 179.3 [lb_av] [facility] temperature 2021-03-23 14:20:00 97.5 [degF] [facility] bmi 2021-03-23 14:20:00 26.48 kg/m2 [facility] oximetry 2021-03-23 14:20:00 99 % [facility] respiratory rate 2021-03-23 14:20:00 17 /min Comm on [facility] blood pressure 2021-03-23 14:20:00 119 mm[Hg] [facility] - systolic [facility] blood pressure 2021-03-23 14:20:00 65 mm[Hg] [facility] - diastolic [facility] height 2021-01-19 13:40:00 69 [in_i] [facility] weight 2021-01-19 13:40:00 178 [lb_av] [facility] temperature 2021-01-19 13:40:00 97.4 [degF] [facility] bmi 2021-01-19 13:40:00 26.28 kg/m2 [facility] oximetry 2021-01-19 13:40:00 97 % [facility] blood pressure 2021-01-19 13:40:00 128 mm[Hg] [facility] - systolic [facility] blood pressure 2021-01-19 13:40:00 68 mm[Hg] [facility] - diastolic [facility] height 2020-11-23 14:20:00 69 [in_i] [facility] weight 2020-11-23 14:20:00 175 [lb_av] [facility] temperature 2020-11-23 14:20:00 98 [degF] [facility] bmi 2020-11-23 14:20:00 25.84 kg/m2 [facility] blood pressure 2020-11-23 14:20:00 130 mm[Hg] [facility] - systolic [facility] blood pressure 2020-11-23 14:20:00 70 mm[Hg] [facility] - diastolic [facility] Systolic blood 2019-11-13 20:38:00 134 mm[Hg] [facility] Diastolic blood 2019-11-13 20:38:00 69 mm[Hg] Unive rsity of pressure [facility] Heart rate 2019-11-13 20:38:00 63 /min [facility] Body height 2019-11-13 20:38:00 172.7 cm [facility] Body weight 2019-11-13 20:38:00 80.287 kg [facility] BMI 2019-11-13 20:38:00 26.91 kg/m2 [facility] Systolic blood 2019-11-13 20:38:00 134 mm[Hg] [facility] Diastolic blood 2019-11-13 20:38:00 69 mm[Hg] Unive rsity of pressure [facility] Heart rate 2019-11-13 20:38:00 63 /min [facility] Body height 2019-11-13 20:38:00 172.7 cm [facility] Body weight 2019-11-13 20:38:00 80.287 kg [facility] BMI 2019-11-13 20:38:00 26.91 kg/m2 [facility] Systolic blood 2019-07-18 13:04:00 133 mm[Hg] Univer sity of pressure [facility] Diastolic blood 2019-07-18 13:04:00 69 mm[Hg] Unive rsity of pressure [facility] Heart rate 2019-07-18 13:04:00 73 /min [facility] Respiratory rate 2019-07-18 13:04:00 18 /min [facility] Body height 2019-07-18 13:04:00 172.7 cm [facility] Body weight 2019-07-18 13:04:00 79.379 kg [facility] BMI 2019-07-18 13:04:00 26.61 kg/m2 [facility] Systolic blood 2019-04-03 20:59:00 160 mm[Hg] Univer [facility]ity of pressure [facility] Diastolic blood 2019-04-03 20:59:00 73 mm[Hg] Unive rsity of pressure [facility] Heart rate 2019-04-03 20:59:00 74 /min [facility] Respiratory rate 2019-04-03 20:59:00 20 /min [facility] Body height 2019-04-03 20:59:00 172.7 cm [facility] Body weight 2019-04-03 20:59:00 79.379 kg [facility] BMI 2019-04-03 20:59:00 26.61 kg/m2 [facility] Systolic blood 2018-10-26 14:49:00 119 mm[Hg] Univer [facility]ity of pressure [facility] Diastolic blood 2018-10-26 14:49:00 69 mm[Hg] Unive rsity of pressure [facility] Heart rate 2018-10-26 14:49:00 70 /min [facility] Body height 2018-10-26 14:49:00 172.7 cm [facility] Body weight 2018-10-26 14:49:00 79.379 kg [facility] BMI 2018-10-26 14:49:00 26.61 kg/m2 [facility] Systolic blood 2018-09-03 14:23:00 127 mm[Hg] Univer [facility]ity of pressure [facility] Diastolic blood 2018-09-03 14:23:00 80 mm[Hg] Unive rsity of pressure [facility] Heart rate 2018-09-03 14:23:00 74 /min [facility] Body temperature 2018-09-03 14:23:00 36.17 Adela [facility] Respiratory rate 2018-09-03 14:23:00 16 /min [facility] Body height 2018-09-03 14:23:00 172.7 cm [facility] Body weight 2018-09-03 14:23:00 79.198 kg [facility] BMI 2018-09-03 14:23:00 26.55 kg/m2 [facility] Oxygen saturation in 2018-09-03 14:23:00 100 /min [facility] Arterial blood by [facility] Pulse oximetry Branch Systolic blood 2022-03-31 14:00:33 129 mm[Hg] Method [facility] pressure Diastolic blood 2022-03-31 14:00:33 60 mm[Hg] [facility] pressure Heart rate 2022-03-31 14:00:33 70 /min [facility] Body temperature 2022-03-31 14:00:[address] [facility] Respiratory rate 2022-03-31 14:00:33 18 /min [facility] Oxygen saturation in 2022-03-31 14:00:33 100 /min [facility] Arterial blood by Pulse oximetry Body height 2022-03-30 16:49:00 172.7 cm [facility] Body weight 2022-03-30 16:49:00 73.029 kg [facility] BMI 2022-03-30 16:49:00 24.48 kg/m2 [facility] Systolic blood 2021-06-11 15:00:00 141 mm[Hg] Method [facility] pressure Diastolic blood 2021-06-11 15:00:00 64 mm[Hg] [facility] pressure Heart rate 2021-06-11 15:00:00 61 /min [facility] Respiratory rate 2021-06-11 15:00:00 16 /min [facility] Oxygen saturation in 2021-06-11 15:00:00 94 /min [facility] Arterial blood by Pulse oximetry Body temperature 2021-06-11 14:26:[address] [facility] Body height 2021-06-11 12:38:00 175.3 cm [facility] Body weight 2021-06-11 12:38:00 77.565 kg [facility] BMI 2021-06-11 12:38:00 25.25 kg/m2 [facility] Weight 2014-07-02 16:18:31 [facility] Height 2014-07-02 16:18:31 [facility] Temperature Oral (F) 2014-07-02 16:18:31 98.4 F [facility] Heart Rate 2014-07-02 16:18:31 [facility] Systolic (mm Hg) 2014-07-02 16:18:31 [facility]ram [facility] Diastolic (mm Hg) 2014-07-02 16:18:31 Mem [facility] Respitory Rate 2014-07-02 16:18:31 [facility] Weight 2014-01-10 16:45:51 [facility] Height 2014-01-10 16:45:51 [facility] Temperature Oral (F) 2014-01-10 16:45:51 98.1 F [facility] Heart Rate 2014-01-10 16:45:51 [facility] Systolic (mm Hg) 2014-01-10 16:45:51 [facility]ram [facility] Diastolic (mm Hg) 2014-01-10 16:45:51 [facility] Respitory Rate 2014-01-10 16:45:51 [facility] Procedures Procedure Date / Time Performing Clinician Source Performed MRI LUMBAR SPINE WO 2022-06-28 18:59:[address] [facility] CONTRAST CT LUMBAR SPINE WO 2022-06-28 18:20:[address] [facility] CONTRAST XR LUMBAR SPINE COMPLETE 2022-06-28 18:19:00 Darrin Walter [facility] W BENDING XR LUMBAR SPINE 2 OR 3 VW 2022-05-25 15:59[facility] HEMOGLOBIN & HEMATOCRIT 2022-03-31 10:36:00 [facility] [place] [facility] 2022-03-30 22:36:00 [facility]in [facility] [place] > 1 HOUR 2022-03-30 21:05:00 [facility]in [facility] OR AN ELECTIVE 2022-03-30 19:38:00 Minerva Garcia [facility] ENDOTRACHEAL AIRWAY Rebecca HC NERVE BLOCK QUADRATUS 2022-03-30 19:31:40 Lizzette Wilver [facility] LUMBORUM HC NERVE BLOCK ERECTOR 2022-03-30 19:30:00 Lizzette [facility] SPINAE FUSION, SPINE, LUMBAR, 2022-03-30 19:23:00 [facility] XLIF ABO AND RH CONFIRMATION 2022-03-30 16:50:00 [facility] BY PROTOCOL COVID-19 QUALITATIVE 2022-03-28 18:24:00 [facility] RT-PCR HEMOGLOBIN A1C 2022-03-23 20:19:00 Chata Padron spital Brenda CBC WITH PLATELET AND 2022-03-23 20:19:00 [facility] DIFFERENTIAL Brenda COMPREHENSIVE METABOLIC 2022-03-23 20:19:00 [facility] PANEL Rbenda PARTIAL THROMBOPLASTIN 2022-03-23 20:19:00 [facility] TIME (PTT) PROTHROMBIN TIME WITH INR 2022-03-23 20:19:00 [facility] ESTIMATED GFR 2022-03-23 20:19:00 Chata Padron spital Brenda TYPE AND SCREEN 2022-03-23 20:19:00 [facility] ospital ECG PRE/POST OP 2022-03-23 20:03:08 Chata Padron spital Brenda XR LUMBAR SPINE COMPLETE 2022-03-18 16:44:00 [facility] W BENDING MRI LUMBAR SPINE WO 2022-03-18 16:08:00 [facility] CONTRAST XR LEG LENGTH EVALUATION 2022-02-17 19:31[facility]W LEFT 2022-02-17 19:31:[address] [facility] [address] POST MYELOGRAM LUMBAR 2021-06-11 14:26:54 [facility] IR MYELOGRAM LUMB INCL 2021-06-11 14:00:00 [facility] INJ W S&I ECG 12-LEAD 2021-02-03 22:36:30 Darrin Walter [facility] ospital BASIC METABOLIC PANEL 2021-02-03 22:34:00 Darrin Walter [facility] CBC HEMOGRAM 2021-02-03 22:34:00 Darrin Walter [facility] ospital PROTHROMBIN TIME WITH INR 2021-02-03 22:34:00 Darrin Walter [facility] PARTIAL THROMBOPLASTIN 2021-02-03 22:34:[address] [facility] TIME (PTT) ESTIMATED GFR 2021-02-03 22:34:00 Darrin Walter [facility] ospital MRI SPINE EXTERNAL STUDY 2021-01-26 21:02:00 Darrin Walter [facility] MRI SPINE EXTERNAL STUDY 2021-01-26 20:42:00 Darrin Walter [facility] ASSIGNMENT OF BENEFITS 2019-11-13 20:24:44 [facility] MR KNEE LEFT WO CONTRAST 2019-05-01 21:25:30 Mary Da Silva [facility] [place] XR HIPS 2 VW LEFT 2018-10-26 14:56:20 Hesham Farrar [facility] [place] CT ABDOMEN PELVIS W 2018-09-10 15:37:24 Alexus Smith [facility] CONTRAST Medical Branch CONSENT/REFUSAL FOR 2018-09-10 14:07:24 Doctor Unassigned, [facility] DIAGNOSIS AND TREATMENT [place] [facility] ASSIGNMENT OF BENEFITS 2018-09-10 14:07:12 Doctor Unassigned, [facility] [place] [facility] VITAMIN B12, LEVEL 2018-09-03 16:08:00 Alexus Smith [facility] A Medical Branch FOLATE 2018-09-03 16:08:00 Alexus Smith [facility] FREE T4 2018-09-03 16:08:00 Alexus Smith [facility] THYROID STIMULATING 2018-09-03 16:08:00 Alexus Smith [facility] HORMONE Medical Branch BASIC METABOLIC PANEL 2018-09-03 16:08:00 Alexus Smith [facility] (NA, K, CL, CO2, GLUCOSE, A Medica l Branch BUN, CREATININE, CA) GLYCOSYLATED HEMOGLOBIN 2018-09-03 16:08:00 Alexus Smith [facility] (A1C) A Medical Branch VITAMIN D, 25-OH 2018-09-03 16:08:00 Alexus Smith [facility] A Medical Branch FREE T3 2018-09-03 16:08:00 Alexus Smith [facility] ASSIGNMENT OF BENEFITS 2018-09-03 14:10:30 Doctor Unassigned, Un [facility] [place] [facility] Plan of Care Planned Activity Planned Date Details Comments Source Future Scheduled 2022-10-08 COVID-19 VACCINE (#1) [facility] Test 23:03:07 [code = COVID-19 VACCINE (#1)] Future Scheduled 2022-10-08 Hepatitis C screening [facility] Test 23:03:07 (procedure) [code = 297766806] Future Scheduled 2022-10-08 SHINGLES VACCINES (1 [facility] Test 23:03:07 of 2) [code = SHINGLES VACCINES (1 of 2)] Future Scheduled 2022-10-08 65+ P[facility]UMOCOCCAL [facility] Test 23:03:07 VACCINE (2 - PCV) [code = 65+ PNEUMOCOCCAL VACCINE (2 - PCV)] Future Scheduled 2022-10-08 INFLUENZA VACCINE (#1) [facility] Hospital Test 23:03:07 [code = INFLUENZA VACCINE (#1)] Future Scheduled 2022-07-13 COVID-19 VACCINE (#1) [facility] Test 16:50:09 [code = COVID-19 VACCINE (#1)] Future Scheduled 2022-07-13 Hepatitis C screening [facility] Test 16:50:09 (procedure) [code = 989424517] Future Scheduled 2022-07-13 SHINGLES VACCINES (1 [facility] Test 16:50:09 of 2) [code = SHINGLES VACCINES (1 of 2)] Future Scheduled 2022-07-13 65+ PNEUMOCOCCAL [facility] Test 16:50:09 VACCINE (2 - PCV) [code = 65+ PNEUMOCOCCAL VACCINE (2 - PCV)] Future Scheduled 2022-07-13 INFLUENZA VACCINE [facility] Hospital Test 16:50:09 [code = INFLUENZA VACCINE] Future Scheduled 2022-04-05 COVID-19 VACCINE (#1) [facility] Hospital Test 10:51:01 [code = COVID-19 VACCINE (#1)] Future Scheduled 2022-04-05 Hepatitis C screening [facility] Test 10:51:01 (procedure) [code = [id number]] Future Scheduled 2022-04-05 COLONOSCOPY SCREENING [facility] Test 10:51:01 [code = COLONOSCOPY SCREENING] Future Scheduled 2022-04-05 SHINGLES VACCINES (1 [facility] Test 10:51:01 of 2) [code = SHINGLES VACCINES (1 of 2)] Future Scheduled 2022-04-05 65+ PNEUMOCOCCAL [facility] Test 10:51:01 VACCINE (2 - PCV) [code = 65+ PNEUMOCOCCAL VACCINE (2 - PCV)] Future Scheduled 2022-04-05 INFLUENZA VACCINE [facility] Test 10:51:01 [code = INFLUENZA VACCINE] Future Scheduled 2021-12-09 HEPATITIS B VACCINES [facility] Test 04:19:14 (1 of 3 - 3-dose series) [code = HEPATITIS B VACCINES (1 of 3 - 3-dose series)] Future Scheduled 2021-12-09 COVID-19 VACCINE (#1) [facility] Test 04:19:14 [code = COVID-19 VACCINE (#1)] Future Scheduled 2021-12-09 Hepatitis C screening [facility] Test 04:19:14 (procedure) [code = [id number]] Future Scheduled 2021-12-09 BREAST CANCER [facility] Test 04:19:14 SCREENING [code = BREAST CANCER SCREENING] Future Scheduled 2021-12-09 COLONOSCOPY SCREENING [facility] Test 04:19:14 [code = COLONOSCOPY SCREENING] Future Scheduled 2021-12-09 SHINGLES VACCINES (1 [facility] Test 04:19:14 of 2) [code = SHINGLES VACCINES (1 of 2)] Future Scheduled 2021-12-09 65+ [facility]OCOCCAL [facility] Test 04:19:14 VACCINE (2 - PCV) [code = 65+ PNEUMOCOCCAL VACCINE (2 - PCV)] Future Scheduled 2021-12-09 INFLUENZA VACCINE [facility] Test 04:19:14 [code = INFLUENZA VACCINE] Encounters Start End Encounter Admission Attending Care Care Encounter Source Date/Time Date/Time Type Type Clinicians Facility Department ID 2022-02-03 Outpatient Davison, STLMLC STLMLC [id number] Common 10:52:01 [facility] [address] [facility] 2021-12-20 Outpatient [facility] [id number] [place] 13:31:[id number] [place] [address] 2021-12-15 Outpatient [facility] [id number] [place] 11:59:[address] [place] [address] 2021-03-19 Outpatient Davison, STLMLC STLMLC [id number] Common 11:23:01 [facility] 2021-03-03 Outpatient Davison, STLMLC STLMLC [id number] Common 14:23:58 [facility] [address] [facility] 2021-03-03 Outpatient Davison, STLMLC STLMLC [id number] Common 14:01:13 [facility] [address] [facility] 2021-03-03 Outpatient Davison, STLMLC STLMLC [id number] Common 13:23:21 Dylan [id number] [facility] 2021-03-03 Outpatient Davison, STLMLC STLMLC [id number] Common 12:27:13 [place] [address] [facility] 2021-03-03 Outpatient Davison, STLMLC STLMLC [id number] Common 12:13:05 [place] [address] [facility] 2021-03-03 Outpatient Davison, STLMLC STLMLC [id number] Common 12:11:57 [place] [address] [facility] 2021-03-03 Outpatient Daivson, STLMLC STLMLC [id number] Common 12:07:19 [place] [address] [facility] 2021-03-03 Outpatient Davison, STLMLC STLMLC [id number] Common 11:57:26 [place] [id number] [facility] 2021-03-03 Outpatient Davison, STLMLC STLMLC [id number] Common 11:57:16 [facility] [address] [facility] 2022-06-28 2022-06-28 Outpatient GIST, [facility] [id number] [address] 00:00:00 00:00:00 DARRIN Meseret2 Method i 2022-06-28 2022-06-28 Outpatient GIST, [facility] [id number] [address] 00:00:00 00:00:00 DARRIN Inga Method i 2022-06-28 2022-06-28 Outpatient GIST, [facility] [id number] 00:00:00 00:00:00 DARRIN 09Sukh Method i 2022-06-20 2022-06-20 Community [facility]ist, 1.2.840.1 [id number] Methodi 00:00:00 00:00:00 Orders Darrin Mireles [id number] 960 s t 3.430.2.7 Hospit a .3.000809 l .8 2022-06-20 2022-06-20 Community [facility], 1.2.840.1 [id number] [facility]i 00:00:00 00:00:00 Orders Darrin Mireles [id number] 960 s t 3.430.2.7 Hospit a .3.901929 l .8 2022-06-13 2022-06-13 [facility], 1.2.840.1 [id number] [facility]i 00:00:00 00:00:00 Orders Darrin Mireles [id number] 821 s t 3.430.2.7 Hospit a .3.877110 l .8 2022-06-13 2022-06-13 Community [facility], 1.2.840.1 [id number] [facility]i 00:00:00 00:00:00 Orders Darrin Mireles [id number] 821 s t 3.430.2.7 Hospit a .3.655432 l .8 2022-05-25 2022-05-25 [facility] Gist, 1.2.840.1 [id number] Methodi 10:37:06 23:59:00 Encounter Darrin Mireles [id number] 3.430.2.7 Hospit a .3.292466 l .8 2022-05-25 2022-05-25 [facility], 1.2.840.1 [id number] Methodi 10:37:06 23:59:[address] 3.430.2.7 Hospit a .3.570278 l .8 2022-05-25 2022-05-25 Travel 1.2.840.1 [id number] [id number] [facility]i 00:00:00 00:00:[address] 3.430.2.7 0.2.7.3.698 Ho spita .3.526104 084.8 l .8 2022-05-25 2022-05-25 [facility], 1.2.840.1 [id number] Methodi 00:00:00 00:00:00 Orders Darrin Mireles [id number] 266 s t 3.430.2.7 Hospit a .3.189505 l .8 2022-05-25 2022-05-25 Travel 1.2.840.1 1.2.829.648 [id number] Methodi 00:00:00 00:00:[address] 3.430.2.7 0.2.7.3.698 Ho spita .3.720477 084.8 l .8 2022-05-25 2022-05-25 [facility] [place], 1.2.840.1 [id number] 2100 595018 Methodi 00:00:00 00:00:00 Orders Darrin Mireles 16017.1.1 266 s t 3.430.2.7 Hospit a .3.225322 l .8 2022-04-01 2022-04-01 Patient Katheryn Bolivar 1.2.840.1 [id number] Methodi 00:00:00 00:00:[address] 3.430.2.7 Hospit a .3.042804 l .8 2022-04-01 2022-04-01 Patient Katheryn Bolivar 1.2.840.1 [id number] 21 [id number] Methodi 00:00:00 00:00:[address] 3.430.2.7 Hospit a .3.890449 l .8 2022-03-30 2022-03-31 [facility] Gist, 1.2.840.1 [id number] 72095 Methodi 10:24:00 11:34:00 Encounter Darrin Mireles 73386.1.[address] 3.430.2.7 Hospit a .3.818564 l .8 2022-03-30 2022-03-31 [facility] Gist, 1.2.840.1 [id number] 21001 59551 Methodi 10:24:00 11:34:00 Encounter Darrin Mireles 52660.1.[address] 3.430.2.7 Hospit a .3.538112 l .8 2022-03-30 2022-03-30 Surgery Gist, 1.2.840.1 [id number] 722292 4362 Methodi 13:50:00 18:20:00 Darrin Mireles 90320.1.1 575 s t 3.430.2.7 Hospit a .3.472137 l .8 2022-03-30 2022-03-30 Surgery Gist, 1.2.840.1 [id number] 157155 9382 Methodi 13:50:00 18:20:00 Darrin Mireles 91188.1.1 575 s t 3.430.2.7 Hospit a .3.439954 l .8 2022-03-30 2022-03-30 Anesthesia Wilver Crockerh 1.2.840.1 21674 1038 [id number] Methodi 13:26:00 17:56:00 Event Chata Padron 60403.1.[address] 3.430.2.7 Hospit a .3.640028 l .8 2022-03-30 2022-03-30 Anesthesia Wilver Crockerh 1.2.840.1 31146 1038 7299697647 Methodi 13:26:00 17:56:00 Event Chata Padron 42403.1.[address] 3.430.2.7 Hospit a .3.914136 l .8 2022-03-30 2022-03-30 Travel 1.2.840.1 1.2.416.428 3301 338121 Methodi 00:00:00 00:00:[address] 3.430.2.7 0.2.7.3.698 Ho spita .3.697784 084.8 l .8 2022-03-30 2022-03-30 Travel 1.2.840.1 1.2.453.907 5170 367829 Methodi 00:00:00 00:00:[address] 3.430.2.7 0.2.7.3.698 Ho spita .3.870375 084.8 l .8 2022-03-28 2022-03-28 Travel 1.2.840.1 1.2.138.039 5139 749505 Methodi 00:00:00 00:00:[address] 3.430.2.7 0.2.7.3.698 Ho spita .3.792614 084.8 l .8 2022-03-28 2022-03-28 Travel 1.2.840.1 1.2.727.104 7076 564562 Methodi 00:00:00 00:00:[address] 3.430.2.7 0.2.7.3.698 Ho spita .3.769799 084.8 l .8 2022-03-28 2022-03-28 Outpatient GIST, [facility] [id number] [address] [place] 00:00:00 00:00:00 DARRIN [address] 2022-03-25 2022-03-25 Travel 1.2.840.1 1.2.247.581 9827 547714 Methodi 00:00:00 00:00:[address] 3.430.2.7 0.2.7.3.698 Ho spita .3.307604 084.8 l .8 2022-03-25 2022-03-25 Travel 1.2.840.1 1.2.268.897 4049 916878 Methodi 00:00:00 00:00:[address] 3.430.2.7 0.2.7.3.698 Ho spita .3.281284 084.8 l .8 2022-03-23 2022-03-23 Pre-Admiss Gist, 1.2.840.1 [id number] 156 0373386 Methodi 13:00:00 14:00:00 ion Darrin Mireles 78117.1.1 965 s t Testing 3.430.2.7 Hospit a .3.118020 l .8 2022-03-23 2022-03-23 Pre-Admiss Gist, 1.2.840.1 127300632 355 9284530 Methodi 13:00:00 14:00:00 tank Mireles 09894.1.1 965 s t Testing 3.430.2.7 Hospit a .3.917401 l .8 2022-03-23 2022-03-23 Travel 1.2.840.1 1.2.537.601 7508 286130 Methodi 00:00:00 00:00:[address] 3.430.2.7 0.2.7.3.698 Ho spita .3.328436 084.8 l .8 2022-03-23 2022-03-23 Travel 1.2.840.1 1.2.556.250 9620 412493 Methodi 00:00:00 00:00:[address] 3.430.2.7 0.2.7.3.698 Ho spita .3.027889 084.8 l .8 2022-03-18 2022-03-18 Hospital Gist, 1.2.840.1 [id number] 18171 75425 Methodi 10:27:57 23:59:00 Encounter Darrin Mireles 96694.1.[address] 3.430.2.7 Hospit a .3.169192 l .8 2022-03-18 2022-03-18 [facility], 1.2.840.1 [id number] 67950 Methodi 10:27:57 23:59:00 Encounter Darrin Mireles 12585.1.[address] 3.430.2.7 Hospit a .3.911217 l .8 2022-03-18 2022-03-18 [facility], 1.2.840.1 [id number] 55587 Methodi 09:26:28 10:26:00 Encounter Darrin Mireles 36667.1.[address] 3.430.2.7 Hospit a .3.338899 l .8 2022-03-18 2022-03-18 [facility], 1.2.840.1 [id number] 21001 02200 Methodi 09:26:28 10:26:00 Encounter Darrin Mireles 09251.1.[address] 3.430.2.7 Hospit a .3.220034 l .8 2022-03-18 2022-03-18 Travel 1.2.840.1 1.2.490.382 6122 509748 Methodi 00:00:00 00:00:[address] 3.430.2.7 0.2.7.3.698 Ho spita .3.821042 084.8 l .8 2022-03-18 2022-03-18 Travel 1.2.840.1 1.2.003.927 6494 815079 Methodi 00:00:00 00:00:[address] 3.430.2.7 0.2.7.3.698 Ho spita .3.044988 084.8 l .8 2022-03-01 2022-03-01 Travel 1.2.840.1 1.2.549.835 3894 937155 Methodi 00:00:00 00:00:[address] 3.430.2.7 0.2.7.3.698 Ho spita .3.302536 084.8 l .8 2022-03-01 2022-03-01 Travel 1.2.840.1 1.2.314.773 7863 697824 Methodi 00:00:00 00:00:[address] 3.430.2.7 0.2.7.3.698 Ho spita .3.680785 084.8 l .8 2022-02-25 2022-02-25 Community Gist, 1.2.840.1 668097185 2100 034446 Methodi 00:00:00 00:00:00 [place] 26804.1.1 178 s t 3.430.2.7 Hospit a .3.912684 l .8 2022-02-25 2022-02-25 Community Gist, 1.2.840.1 [id number] 2100 389935 Methodi 00:00:00 00:00:00 Orders Darrin Chi 07985.1.1 178 s t 3.430.2.7 Hospit a .3.437681 l .8 2022-02-17 2022-02-17 Office Jordin, 1.2.840.1 299939269 94364 Methodi 13:30:00 15:46:35 Visit Mai Abraham 54503.1.1 283 s t 3.430.2.7 Hospit a .3.827267 l .8 2022-02-17 2022-02-17 Office Jordin, 1.2.840.1 047390203 21001 11787 Methodi 13:30:00 15:46:35 Visit Mai Abraham 55131.1.1 283 s t 3.430.2.7 Hospit a .3.447114 l .8 2022-02-17 2022-02-17 Travel 1.2.840.1 1.2.749.524 1126 520271 Methodi 00:00:00 00:00:[address] 3.430.2.7 0.2.7.3.698 Ho spita .3.350045 084.8 l .8 2022-02-17 2022-02-17 Travel 1.2.840.1 1.2.137.391 8262 841193 Methodi 00:00:00 00:00:[address] 3.430.2.7 0.2.7.3.698 Ho spita .3.315970 084.8 l .8 2022-02-17 2022-02-17 Outpatient [facility], [facility] [id number] 0[address] [place] 00:00:00 00:00:00 MAI Shaffer Method i st 2022-02-03 2022-02-03 OFFICE STLMLC STLMLC [id number] Co mmon 00:00:00 00:00:00 VISIT [facility] PT - CHI LEVEL 4 [facility] 2022-02-03 2022-02-03 (TEL) STLMLC STLMLC [id number] Co mmon 00:00:00 00:00:00 [facility] 2022-01-28 2022-01-28 (TEL) STLMLC STLMLC [id number] Co mmon 00:00:00 00:00:00 [facility] 2022-01-24 2022-01-24 (TEL) STLMLC STLMLC [id number] Co mmon 00:00:00 00:00:00 [facility] 2022-01-11 2022-01-11 Outpatient [facility] [id number] [place] 13:30:00 13:30:00 [facility] 2021-12-20 2021-12-20 [id number] [place] 14:00:00 15:25:58 [facility] 2021-11-15 2021-11-15 OFFICE STLMLC STLMLC [id number] Co mmon 00:00:00 00:00:00 VISIT [facility] PT - CHI [facility] 4 [facility] 2021-08-27 2021-08-27 (TEL) STLMLC STLMLC [id number] Co mmon 00:00:00 00:00:00 [facility] 2021-08-18 2021-08-18 (TEL) STLMLC STLMLC [id number] Co mmon 00:00:00 00:00:00 [facility] 2021-08-06 2021-08-06 OFFICE STLMLC STLMLC [id number] Co mmon 00:00:00 00:00:00 VISIT [facility] LEVEL 4 [facility] 2021-06-11 2021-06-11 [facility] Gist, 1.2.840.1 [id number] 91373 Methodi 08:45:00 23:59:00 Encounter Darrin Mireles 81164.1.[address] 3.430.2.7 Hospit a .3.962898 l .8 2021-06-11 2021-06-11 [facility] Gist, 1.2.840.1 [id number] 19270 Methodi 07:02:23 08:44:00 Encounter Darrin Mireles 25772.1.[address] 3.430.2.7 Hospit a .3.239971 l .8 2021-06-11 2021-06-11 Travel 1.2.840.1 1.2.927.788 0307 605834 Methodi 00:00:00 00:00:[address] 3.430.2.7 0.2.7.3.698 spita .3.140526 084.8 l .8 2021-06-07 2021-06-07 Telephone [facility], 1.2.840.1 [id number] 2099 926901 Methodi 00:00:00 00:00:[address] 3.430.2.7 Hospit a .3.969534 l .8 2021-06-04 2021-06-04 Telephone [facility], 1.2.840.1 [id number] 2099136 Methodi 00:00:00 00:00:[address] 3.430.2.7 Hospit a .3.293087 l .8 2021-05-20 2021-05-20 Transcribe Gist, 1.2.840.1 [id number] 047 0699371 Methodi 00:00:00 00:00:00 Orders Darrin Chi 54417.1.1 557 s t 3.430.2.7 Hospit a .3.698079 l .8 2021-05-04 2021-05-04 (TEL) STLMLC STLMLC [id number] Co mmon 00:00:00 00:00:00 Spirit - CHI [facility] 2021-05-04 2021-05-04 OFFICE STLMLC STLMLC [id number] Co mmon 00:00:00 00:00:00 VISIT EST Spir it PT LEVEL 3 - CHI [facility] 2021-03-23 2021-03-23 OFFICE STLMLC STLMLC [id number] Co mmon 00:00:00 00:00:00 VISIT Spirit ESTAB PT - CHI LEVEL 4 [facility] 2021-03-23 2021-03-23 SUB ANNUAL STLMLC STLMLC [id number] Common 00:00:00 00:00:00 [facility] Spirit WELLNESS - CHI VISIT [facility] 2021-02-03 2021-02-03 [facility] Gist, 1.2.840.1 [id number] 74750 99223 Methodi 17:27:22 23:59:00 Encounter Darrin Mireles 33523.1.[address] 3.430.2.7 Hospit a .3.563878 l .8 2021-02-03 2021-02-03 [facility] Gist, 1.2.840.1 [id number] 40793 36429 Methodi 17:25:56 17:26:00 Encounter Darrin Chi 38011.1.[address] 3.430.2.7 Hospit a .3.288790 l .8 2021-02-03 2021-02-03 Lab Gist, 1.2.840.1 [id number] 274469 4625 Methodi 16:20:00 16:25:00 Darrin Mireles 19002.1.1 752 s t 3.430.2.7 Hospit a .3.265636 l .8 2021-02-03 2021-02-03 Travel 1.2.840.1 1.2.564.337 5811 002924 Methodi 00:00:00 00:00:00 46119.1.1 350.1.13.43 751 3.430.2.7 0.2.7.3.698 Ho spita .3.517310 084.8 l .8 2021-01-20 2021-01-20 (TEL) STLMLC STLMLC [id number] Co mmon 00:00:00 00:00:00 [facility] 2021-01-19 2021-01-19 OFFICE STLMLC STLMLC [id number] Co mmon 00:00:00 00:00:00 VISIT EST Spir it PT LEVEL 3 [facility] 2021-01-18 2021-01-18 (TEL) STLMLC STLMLC [id number] Co mmon 00:00:00 00:00:00 [facility] 2020-12-17 2020-12-17 (TEL) STLMLC STLMLC [id number] Co mmon 00:00:00 00:00:00 [facility] 2020-12-14 2020-12-14 (TEL) STLMLC STLMLC [id number] Co mmon 00:00:00 00:00:00 [facility] 2020-11-23 2020-11-23 OFFICE STLMLC STLMLC [id number] Co mmon 00:00:00 00:00:00 VISIT Spirit ESTAB PT - CHI LEVEL 4 [facility] 2020-11-16 2020-11-16 (TEL) STLMLC STLMLC [id number] Co mmon 00:00:00 00:00:00 [facility] 2020-10-07 2020-10-07 Outpatient CAROL, [facility] [id number] [address] [place] 00:00:00 00:00:00 HANNAH 95Jose Luis Method i 2020-10-07 2020-10-07 Outpatient CAROL [facility] [id number] 28[address] [place] 00:00:00 00:00:00 HANNAH Bishop Method i 2020-09-21 2020-09-21 (TEL) STLMLC STLMLC [id number] Co mmon 00:00:00 00:00:00 [facility] 2020-08-12 2020-08-12 Outpatient STLMLC STLMLC [id number] Common 00:00:00 00:00:00 [facility] 2020-04-13 2020-04-[address], [facility] 1.2.840.114 [id number] Univers 00:00:00 00:00:00 Outreach Aiden PRIMARY 350.1.13.10 i ty of [facility] [place].7.2.[place] [phone] Nj dical [address] 2020-04-04 2020-04-04 Laboratory Lab, Adc Fam Pob I [facility] 1.2. 840.114 [id number] Univers 12:49:28 13:09:28 [facility] 350.1.13.10 ity [facility] 4.2.7.2.686 Higinio as Professio [phone] Nj dical on license of [facility] [address] Office Building One 2020-04-04 2020-04-04 [facility] [id number] Univers 13:00:00 13:00:00 [facility] 2020-03-20 2020-03-20 Outpatient STLMLC STLMLC [id number] Common 00:00:00 00:00:00 [facility] 2020-03-18 2020-03-18 Outpatient STLMLC STLMLC [id number] Common 00:00:00 00:00:00 [facility] 2020-03-10 2020-03-10 Outpatient STLMLC STLMLC [id number] Common 00:00:00 00:00:00 [facility] 2020-03-10 2020-03-10 Outpatient STLMLC STLMLC [id number] Common 00:00:00 00:00:00 [facility] 2020-01-28 2020-01-28 Outpatient GIST, [facility] [id number] [address] [place] [address] 00:00:00 00:00:00 DARRIN Hardwick i 2020-01-28 2020-01-28 Outpatient GIST, [facility] [id number] [address] [place] 00:00:00 00:00:00 DARRIN [address] 2020-01-22 2020-01-22 Outpatient GIST, [facility] [id number] [address] [place] 00:00:00 00:00:00 DARRIN [address] 2020-01-20 2020-01-20 Outpatient STLMLC STLMLC [id number] Common 00:00:00 00:00:00 [facility] 2020-01-20 2020-01-20 Outpatient STLMLC STLMLC [id number] Common 00:00:00 00:00:00 [facility] 2020-01-14 2020-01-14 Outpatient STLMLC STLMLC [id number] Common 00:00:00 00:00:00 [facility] 2019-12-25 2019-12-25 Outpatient cMcDonald MMG MMG [id number] [place] 02:46:00 02:46:00 [facility] 2019-12-11 2019-12-11 [facility] [id number] Univers 00:00:00 00:00:00 [facility] 2019-12-11 2019-12-11 [facility] [id number] Univers 00:00[facility]00 [facility]00[facility] 2019-11-27 2019-11-27 Outpatient STLMLC STLMLC [id number] Common 00:00:00 00:00:00 [facility] 2019-11-26 2019-11-26 Outpatient STLMLC STLMLC [id number] Common 00:00:00 00:00:00 [facility] 2019-11-13 2019-11-13 [facility] 1.2.840.114 [id number] Univers 15:50:30 23:59:00 Encounter Hesham Bagley [facility] 350.1.13.10 ity of Surgical 4.2.7.2.686 Higinio as Specialti [phone] Nj dical es 809 [facility] 2019-11-13 2019-11-13 Office FarrarRUST 1.2.283.621 [id number] 0859 15:27:01 16:02:54 Visit Hesham Howe 350.1.13.10 Surgical 4.2.7.2.686 Specialti [phone] es [address] [place] [address] 2019-11-13 2019-11-13 Office LeniRUST 1.2.826.147 [id number] 0859 Univers 15:27:01 16:02:54 Visit Hesham Howe 350.1.13.10 it y of Surgical 4.2.7.2.686 Higinio as Specialti [phone] Nj dicok es 198 [facility] 2019-11-13 2019-11-13 [facility] [id number] Univers 15:30:00 15:30:00 HEHSAM rausch [facility] 2019-11-13 2019-11-13 Orders Doctor GIOVANNI 1.2.840.114 [id number] Univers 00:00:00 00:00:00 Only Unassigned, MELISSA 350.1.13.10 ity of [facility] 4.2.7.2.686 Higinio as [phone] [address] 2019-07-18 2019-07-18 Office LeniRUST 1.2.241.566 [id number] Univers 08:04:03 08:18:07 Visit Hesahm Howe 350.1.13.10 it y of Surgical 4.2.7.2.686 Higinio as Specialti [phone] [facility] 198 [facility] 2019-07-18 2019-07-18 [facility] [id number] Univers 08:00:00 08:00:00 HESHAM rausch [facility] 2019-07-10 2019-07-10 Telephone FarrarRUST 1.2.840.114 [id number] Univers 00:00:00 00:00:00 Hesham [facility] 350.1.13.10 it y of Surgical 4.2.7.2.686 Higinio as Specialti [phone] Nj dical es 198 [facility] 2019-05-16 2019-05-16 [facility] 1.2.840.114 [id number] Univers 00:00:00 00:00:00 Hesham [facility] 350.1.13.10 it y of Surgical 4.2.7.2.686 Higinio as Specialti [phone] Nj dical es 198 [facility] 2019-05-16 2019-05-16 Refill FarrarRUST 1.2.105.375 [id number] Univers 00:00:00 00:00:00 Hesham [facility] 350.1.13.10 it y of Surgical 4.2.7.2.686 Higinio as Specialti [phone] Nj dical es 198 [facility] 2019-05-01 2019-05-01 Outpatient R AVINASH [facility] [id number] Univers 15:31:07 23:59:00 MARY ity of [facility] 2019-05-01 2019-05-01 [facility] AvinashRUST 1.2.840.114 [id number] Univers 15:00:00 23:59:00 Encounter Mary Lindsey [place] 350.1.13.10 ity of [place].2.[place] [phone] [facility] [address] [place] 2019-04-17 2019-04-17 Telephone [facility] 1.2.840.114 [id number] Univers 00:00:00 00:00:00 Hesham [facility] 350.1.13.10 it y of Surgical 4.2.7.2.686 Higinio as Specialti [phone] Nj dical es 198 [facility] 2019-04-10 2019-04-10 Telephone [facility] 1.2.840.114 [id number] Univers 00:00:00 00:00:00 Hesham [facility] 350.1.13.10 it y of Surgical 4.2.7.2.686 Higinio as Specialti [phone] Nj dical es 198 [facility] 2019-04-03 2019-04-03 [facility] 1.2.840.114 [id number] Univers 15:22:00 23:59:00 Encounter Hesham [facility] 350.1.13.10 ity of Surgical 4.2.7.2.686 Higinio as Specialti [phone] Nj dical es 809 [facility] 2019-04-03 2019-04-03 Office [facility] 1.2.020.872 [id number] Univers 14:52:27 15:33:26 Visit Hesham [facility] 350.1.13.10 it y of Surgical 4.2.7.2.686 Higinio as Specialti [id number] Nj dical es 198 [facility] 2019-04-03 2019-04-03 [facility] [id number] Univers 15:15:00 15:15:00 HESHAM rausch [facility] 2018-10-26 2018-10-26 [facility] 1.2.840.114 [id number] Univers 09:56:19 23:59:00 Encounter Hesham [facility] 350.1.13.10 ity of Surgical 4.2.7.2.686 Higinio as Specialti [phone] Nj dical es 809 [facility] 2018-10-26 2018-10-26 [facility] [id number] Univers 09:56:19 23:59:00 HESHAM rausch [facility] 2018-10-26 2018-10-26 Office [facility] 1.2.018.261 [id number] [facility] 09:49:05 10:42:23 Visit Hesham [facility] 350.1.13.10 it y of Surgical 4.2.7.2.686 Higinio as Specialti [phone] Nj dical es 198 [facility] 2018-09-10 2018-09-10 Outpatient [facility] [id number] Univers 09:07:16 23:59:00 ALEXUS mistryy [facility] 2018-09-10 2018-09-10 [facility] 1.2.840.114 [id number] Univers 09:00:00 23:59:00 Encounter Alexus Arita 350.1.13.10 ity of [place] 4.2.7.2.686 [phone] [address] 2018-09-06 2018-09-06 [facility] 1.2.840.114 [id number] Univers 00:00:00 00:00:00 Alexus [facility] 350.1.13.10 ity of [place] 4.2.7.2.686 Higinio as Professio [phone] [facility] [address] [place] Office [facility] One 2018-09-03 2018-09-03 Certified Nutritionist 1, Adc Lab [facility] 1.2.840.114 [id number] Univers 10:53:02 11:08:02 Visit Alexus Smith 350.1. 13.10 ity of [place].7.2.686 [place] [phone] [facility] [address] [place] 2018-09-03 2018-09-03 Office SarahRUST 1.2.840.114 [id number] Univers 09:12:21 10:31:56 Visit Alexus Oakley [place] 350.1.13.10 ity of [place].2.[place] Profess[place] [phone] [facility] 231 [facility] 2018-09-03 2018-09-03 Outpatient [facility] [id number] Univers 09:00:00 10:31:56 ALEXUS mistryevonne [facility] 2018-09-03 2018-09-03 Telephone Sarah [facility] 1.2.840.114 [id number] Univers 00:00:00 00:00:00 Alexus Oakley [facility] 350.1.13.10 ity of [place] 4.2.7.2.686 Higinio as Professio [phone] [facility] [address] [place] Office [facility] One 2018-09-03 2018-09-03 Orders Doctor GIOVANNI 1.2.840.114 [id number] Univers 00:00:00 00:00:00 Only Unassigned, MELISSA 350.1.13.10 ity of [place] [facility] 4.2.7.2.686 Higinio as [phone] [facility] [address] 2018-04-26 2018-04-26 Outpatient FARRAR [facility] [id number] Univers 10:50:49 23:59:00 HESHAM [facility] 2016-07-21 2016-07-21 Appointmen [facility] [id number] [place] 14:00:00 14:00:00 t; Jh [facility] Physi ci Sindi JONES haylie NAVARRETE M.D. 2014-07-02 2014-07-02 Office nullFlavo Mischer [id number] [facility]oria 00:00:00 00:00:00 Visit r [facility]scienc [id number] [place] [facility] [place] 2014-01-10 2014-01-10 Office nullFlavo Mischer [id number] Memoria 00:00:00 00:00:00 Visit r Neuroscienc [id number] [place] [facility] [place] Results Test Description Test Time Test Comments Results Result Comments Source SARS-CoV-2 (COVID-19) RNA [Presence] in Respiratory sp ecimen by 2022-03-28 22:30:31 MANISH with probe detection Test Item Value Reference Range Interpretation Comme nts SARS-CoV-2 (COVID-19) RNA [Presence] in Respiratory specimen by Not detected MANISH with probe detection (test code = 16363-8) Whether patient is employed in a healthcare setting (test code = Un known 42411-3) Whether the patient has symptoms related to condition of interest U nknown (test code = 14263-5) Whether the patient was hospitalized for condition of interest Unkn own (test code = 29654-3) Whether the patient was admitted to intensive care unit (ICU) for U nknown condition of interest (test code = 40842-1) Whether patient resides in a congregate care setting (test code = U nknown 07517-5) status (test code = 74597-7) Unknown Date and time of symptom onset (test code = 13860-2) Unknown [facility] Pre/Post [id number] 00:50:45 Test Item Value Reference Range Interpretation Comments Ventricular rate (test 62 code = 253) Atrial rate (test code 62 = 255) OR interval (test code 144 = 266) QRSD [...] for Septal infarct are no longer present- [facility] Pre/Post [id number] 00:50:45 Test Item Value Reference Range Interpretation Comments Ventricular rate (test 62 code = 253) Atrial rate (test code 62 = 255) OR interval (test code 144 = 266) QRSD [...] for Septal infarct are no longer present- [facility] Pre/Post [id number] 00:50:45 Test Item Value Reference Range Interpretation Comments Ventricular rate (test 62 code = 253) Atrial rate (test code 62 = 255) OR interval (test code 144 = 266) QRSD [...] for Septal infarct are no longer present- [facility] [id number] 03:23:43 Test Item Value Reference Range Interpretation Comments Ventricular rate (test code = 253) Atrial rate (test code = 255) OR interval (test code = 266) QRSD interval [...] block-Septal infarct , age undetermined-Abnorma l [facility] [id number] 21:33:06HISTORY: ?Pain in the left knee. Mechanical [...] No torn meniscus or torn ligaments detected. [facility], Radiant Results Inft User - 05/01/2019 [...] leftknee.2. No torn meniscus or torn ligaments detected.[facility] VW [id number] 18:06:44No fractures or dislocationsUnivers[facility] ABDOMEN PELVIS W [id number] 15:45:371. No acute intra- abdominal or intrapelvic [...] old healed fracture of the left hip. [facility], Radiant Results Inft User - 09/10/2018 10:47 [...] hip.IMPRESSION1. No acute intra-abdominal or int rapelvic pathology.[facility], [id number] 13:09:00 Test Item Value Reference Range Interpretation Comments VIT D 25OH (test 35 ng/mL 25-80 code = 0580669666) 25-Hydroxy D3 35.3 ng/mL (test code = 2032629766) 25-Hydroxy D2 <2.5 ng/mL (test code = 6311907743) MARVIN (test code = Test developed and MARVIN) characteristics determined by [facility] Services. [facility], [id number] 13:09:00 Test Item Value Reference Range Interpretation Comments VIT D 25OH (test 35 ng/mL 25-80 code = 2988577138) 25-Hydroxy D3 35.3 ng/mL (test code = 9908048958) 25-Hydroxy D2 <2.5 ng/mL (test code = 2509265374) MARVIN (test code = Test developed and MARVIN) characteristics determined by [facility] Services. [facility] B12, [id number] 21:11:00 Test Item Value Reference Range Interpretation Comments VIT B12 (test code = 354 pg/mL 240-930 [id number]) MARVIN (test code = MARVIN) Biotin has been reported to cause a positive bias, interpret results relative to patient's use of biotin. Lab Interpretation (test Normal code = 23022-5) [facility] Test Item Value Reference Range Interpretation Comments FOLATE SER (test code = 17.9 ng/mL 3-20 Biot in has been [id number]) reported to cau se a positive bias, interpret resul ts relative to patient's use o f biotin. Lab Interpretation (test Normal code = 88062-7) [facility], [id number] 21:11:00 Test Item Value Reference Range Interpretation Comments VIT B12 (test code = 354 pg/mL 240-930 [id number]) MARVIN (test code = MARVIN) Biotin has been reported to cause a positive bias, interpret results relative to patient's use of biotin. Lab Interpretation (test Normal code = 08519-8) [facility]:11[facility]00 Test Item Value Reference Range Interpretation Comments FOLATE SER (test code = 17.9 ng/mL 3-20 Biot in has been [id number]) reported to cau se a positive bias, interpret resul ts relative to patient's use o f biotin. Lab Interpretation (test Normal code = 81371-7) [facility]2018-09-03 19:13:00 Test Item Value [...] Indicated Lab Interpretation Normal (test code = 16513-6) [facility]2018-09-03 19:13:00 Test Item Value [...] Normal or (Non-Diabetic Range)5.7-6.4? Increased Risk (Pre-Diabetic)>6.5?D lizzie Indicated Lab Interpretation Normal (test code = 19723-2) [facility] [id number] 17:20:00 Test Item Value Reference Range Interpretation Comments TSH (test code = See_Comment [Automated message] [id number]) The system [employer] generated this result transmitted ref erence range: 0.45 - 4 .70 mIU/L. The refe rence range was not u sed to interpret this result as normal/abnor mal. Lab Interpretation (test Normal code = 40259-1) [facility] [id number] 17:20:00 Test Item Value Reference Range Interpretation Comments TSH (test code = See_Comment [Automated message] [id number]) The system [employer] generated this result transmitted ref erence range: 0.45 - 4 .70 mIU/L. The refe rence range was not u sed to interpret this result as normal/abnor mal. Lab Interpretation (test Normal code = 45713-3) [facility] [id number] 17:07:00 Test Item Value Reference Range Interpretation Comments FREE T4 (test code = 4328944812) 0.90 ng/dL 0.78-2.2 Lab Interpretation (test code = Normal 47201-3) [facility] [id number] 17:07:00 Test Item Value Reference Range Interpretation Comments FREE T4 (test code = 1782886382) 0.90 ng/dL 0.78-2.2 Lab Interpretation (test code = Normal 10093-5) [facility] [id number] 17:06:00 Test Item Value Reference Range Interpretation Comments FREE T3 (test code = 8401913270) 3.49 pg/mL 2.77-5.27 Lab Interpretation (test code = Normal 39745-7) [facility] [id number] 17:06:00 Test Item Value Reference Range Interpretation Comments FREE T3 (test code = 5928618415) 3.49 pg/mL 2.77-5.27 Lab Interpretation (test code = Normal 37840-5) [facility] METABOLIC PANEL (NA, K, CL, CO2, GLUCOSE, BUN, CREATININE, CA)2018-09-03 16:56:00 Test Item Value Reference Range Interpretation Comments NA (test code = 146 mmol/L 135-145 H 2485376411) K (test code = 5.1 mmol/L 3.5-5 H 8661054481) CL (test code = 107 mmol/L 98-108 9590308952) CO2 TOTAL (test code = 33 mmol/L 23-31 H 0368365864) AGAP (test code = 2-16 6143971765) BUN (test code = 12 mg/dL 7-23 3355933646) GLUCOSE (test code = 116 mg/dL 70-110 H 3770311890) CREATININE (test code = 0.64 mg/dL 0.5-1.04 5957503980) CALCIUM (test code = 9.4 mg/dL 8.6-10.6 0799825560) eGFR Calculation mL/min/1.73m2 (Non-) (test code = 8281636441) eGFR Calculation mL/min/1.73m2 () (test code = 2466242881) MARVIN (test code = MARVIN) Association of [...] tests). Lab Interpretation Abnormal (test code = 06481-7) [facility] (NA, K, CL, CO2, GLUCOSE, BUN, CREATININE, CA)2018-09-03 16:56:00 Test Item Value Reference Range Interpretation Comments NA (test code = 146 mmol/L 135-145 H 8004162524) K (test code = 5.1 mmol/L 3.5-5 H 0673597362) CL (test code = 107 mmol/L 98-108 8868459922) CO2 TOTAL (test code = 33 mmol/L 23-31 H 2492147127) AGAP (test code = 2-16 7232007867) BUN (test code = 12 mg/dL 7-23 0691112258) GLUCOSE (test code = 116 mg/dL 70-110 H 9317358585) CREATININE (test code = 0.64 mg/dL 0.5-1.04 1777130019) CALCIUM (test code = 9.4 mg/dL 8.6-10.6 0868248428) eGFR Calculation mL/min/1.73m2 (Non-) (test code = 2012142621) eGFR Calculation mL/min/1.73m2 () (test code = 5082365573) MARVIN (test code = MARVIN) Association of [...] tests). Lab Interpretation Abnormal (test code = 34625-3) [facility]"
[2022-10-21 21:56] LABS: Absolute Lymphocytes (CBC) 0.8 K/uL (0.7-4.9); Hematocrit 39.8 % (36.0-45.0); Lymphocytes % 21.6 % (15.3-44.8); MCV 86.4 fL (80-100); MPV 7.8 fL (7.6-11.3); Platelets 190 thou/uL (152-406); RBC Red Blood Cell Count 4.61 M/uL (3.86-4.86)
[2022-10-21] MEDS ORDERED: IPRATROPIUM BROM 0.5MG/2.5ML ONE (21:58)
[2022-10-21] MEDS ORDERED: ALBUTEROL 2.5 MG/3 ML NEB SOL ONE (21:58)
--- NOTE | 2022-10-21 22:07 | RAD REPORT ---
EXAM DESCRIPTION: Kiana Single View10/21/2022 10:01 pm CLINICAL HISTORY: cough COMPARISON: 2019 FINDINGS: The lungs appear clear of acute infiltrate. The heart is normal size IMPRESSION: No acute abnormalities displayed
[2022-10-21 22:08] LABS: Albumin 3.2 g/dL (3.4-5.0); Bilirubin Total 0.6 mg/dL (0.2-1.0); Potassium 3.5 mEq/L (3.5-5.1); Protein, Total 6.6 g/dL (6.4-8.2)
--- NOTE | 2022-10-21 22:17 | ER ---
Nurse's Notes [facility] Name: Kim Mera Age: 77 yrs Sex: Female : 1945 Arrival Date: 10/21/2022 Time: 21:19 Bed 6 Private MD: Dylan Davison Diagnosis: COVID Presentation: 10/21 21:35 Chief complaint: Patient states: tested positive for COVID last Monday , still iw having fever, cough, weakness. Coronavirus screen: Client presents with at least one sign or symptom that may indicate coronavirus-19. Ebola Screen: Patient negative for fever greater than or equal to 101.5 degrees Fahrenheit, and additional compatible Ebola Virus Disease symptoms Patient denies exposure to infectious person. Patient denies travel to an Ebola-affected area in the 21 days before illness onset. No symptoms or risks identified at this time. Initial Sepsis Screen: Does the patient meet any 2 criteria? No. Patient's initial sepsis screen is negative. Does the patient have a suspected source of infection? No. Patient's initial sepsis screen is negative. Risk Assessment: Do you want to hurt yourself or someone else? Patient reports no desire to harm self or others. Onset of symptoms was October 14, 2022. 21:35 Method Of Arrival: Ambulatory iw 21:35 Acuity: JUAN 3 iw Historical: - Allergies: 21:37 adhesive tape; iw 21:37 HYDROCODONE; iw 21:37 hydromorphone; iw 21:37 Morphine; iw - PMHx: 21:37 Arthritis; Firbomyalgia; High Cholesterol; restless leg syndrome; iw - PSHx: 21:37 Appendectomy; Cholecystectomy; Left hip; pins; Total abdominal hysterectomy; iw - Immunization history:: Adult Immunizations up to date. - Family history:: not pertinent. - Social history:: Smoking status: Patient denies any tobacco usage or history of. Screenin:30 [facility] ED Fall Risk Assessment (Adult) History of falling in the last 3 months, rv including since admission No falls in past 3 months (0 pts) Score/Fall Risk Level 0 - 2 = Low Risk Oriented to surroundings, Maintained a safe environment, Educated pt \T\ family on fall prevention, incl call for assistance when getting out of bed, Assessed \T\ reinforced patient's understanding of fall precautions, Provided non-skid footwear, Hourly rounding (assess needs \T\ fall precautionary measures) done, Used ambulatory aids as needed (educated on \T\ assisted with), Used gait belt as appropriate. 21:30 Abuse screen: Denies threats or abuse. Denies injuries from another. Nutritional rv screening: No deficits noted. Tuberculosis screening: No symptoms or risk factors identified. Assessment: 21:30 General: Appears in no apparent distress. Behavior is calm, cooperative. rv 21:30 Pain: Denies pain. Neuro: Level of Consciousness is awake, alert, obeys commands, rv Oriented to person, place, time, situation. Cardiovascular: Capillary refill < 3 seconds Patient's skin is warm and dry. Respiratory: Airway is patent Respiratory effort is even, unlabored, Breath sounds are clear bilaterally. Derm: Skin is intact. Vital Signs: 21:35 BP 147 / 64; Pulse 84; Resp 18; Temp 99.4; Pulse Ox 100% on R/A; Weight 72.57 kg; iw Height 5 ft. 8 in. ; 22:21 BP 137 / 66; Pulse 96; Resp 20; Temp 98; Pulse Ox 100% ; rv 21:35 Body Mass Index 24.33 (72.57 kg, 172.72 cm) iw ED Course: 21:23 Patient arrived in ED. es 21:24 Alirio Gore MD is Attending Physician. rt 21:24 Dylan Davison DO is Private Physician. es 21:30 Patient has correct armband on for positive identification. rv 21:30 No provider procedures requiring assistance completed. Inserted saline lock: 22 gauge rv in right antecubital area, using aseptic technique. Blood collected. 21:34 Neva Jimenez, RN is Primary Nurse. iw 21:37 Triage completed. iw 22:03 Chest Single View XRAY In Process Unspecified. EDMS 22:22 Provided Education on: BREATHING TREATMENT. VIRAL ILLNESS. rv 22:22 IV discontinued, intact, bleeding controlled, No redness/swelling at site. Pressure rv dressing applied. 22:23 Arm band placed on right wrist. rv Administered Medications: 21:49 Drug: DuoNeb Nebulize (3:1) (2.5 mg - 0.5 mg) 3 ml Route: Nebulizer; rv 22:20 Follow up: Response: No adverse reaction rv Medication: 22:23 VIS not applicable for this client. rv Outcome: 22:16 Discharge ordered by . rt 22:22 Discharged to home ambulatory. rv 22:22 Condition: improved 22:22 Discharge instructions given to patient, Instructed on discharge instructions, follow up and referral plans. medication usage, Demonstrated understanding of instructions, follow-up care, medications, Prescriptions given X 1. 22:23 Patient left the ED. rv Signatures: Dispatcher [employer] Crystal Ashraf Irene, RN RN iw Mg Encarnacion RN RN rv [place], Ryan, MD MD rt
--- NOTE | 2022-10-21 22:17 | EDPHYS ---
Physician Documentation [facility] Name: Kim Mera Age: 77 yrs Sex: Female : 1945 Arrival Date: 10/21/2022 Time: 21:19 Bed 6 Private MD: Sam[facility] ED Physician Alirio Gore HPI: 10/21 21:38 This 77 yrs old Female presents to ER via Ambulatory with complaints of COVID. rt 21:38 Patient states that she has had COVID symptoms and did test positive for about 2 weeks. rt The patient states that she has a persistent cough productive of sputum, denies hemoptysis. States that she has somewhat of difficulty breathing and states that she feels poorly generally. Denies other acute complaints at this time. Symptoms are moderate in severity, no other aggravating alleviating factors.. Historical: - Allergies: 21:37 adhesive tape; iw 21:37 HYDROCODONE; iw 21:37 hydromorphone; iw 21:37 Morphine; iw - PMHx: 21:37 Arthritis; Firbomyalgia; High Cholesterol; restless leg syndrome; iw - PSHx: 21:37 Appendectomy; Cholecystectomy; Left hip; pins; Total abdominal hysterectomy; iw - Immunization history:: Adult Immunizations up to date. - Family history:: not pertinent. - Social history:: Smoking status: Patient denies any tobacco usage or history of. ROS: 21:38 Cardiovascular: Negative for chest pain, palpitations, and edema, Abdomen/GI: Negative rt for abdominal pain, nausea, vomiting, diarrhea, and constipation, Skin: Negative for injury, rash, and discoloration, Neuro: Negative for headache, weakness, numbness, tingling, and seizure, Psych: Negative for depression, anxiety, suicide ideation, homicidal ideation, and hallucinations. 21:38 Constitutional: Positive for body aches, malaise. 21:38 Respiratory: Positive for cough, shortness of breath. Exam: 21:38 Constitutional: This is a well developed, well nourished patient who is awake, alert, rt and in no acute distress. Head/Face: Normocephalic, atraumatic. Chest/axilla: Normal chest wall appearance and motion. Nontender with no deformity. No lesions are appreciated. Cardiovascular: Regular rate and rhythm with a normal S1 and S2. No gallops, murmurs, or rubs. Normal PMI, no JVD. No pulse deficits. Respiratory: Lungs have equal breath sounds bilaterally, clear to auscultation and percussion. No rales, rhonchi or wheezes noted. No increased work of breathing, no retractions or nasal flaring. Abdomen/GI: Soft, non-tender, with normal bowel sounds. No distension or tympany. No guarding or rebound. No evidence of tenderness throughout. Skin: Warm, dry with normal turgor. Normal color with no rashes, no lesions, and no evidence of cellulitis. MS/ Extremity: Pulses equal, no cyanosis. Neurovascular intact. Full, normal range of motion. Neuro: Awake and alert, GCS 15, oriented to person, place, time, and situation. Cranial nerves II-XII grossly intact. Motor strength 5/5 in all extremities. Sensory grossly intact. Cerebellar exam normal. Normal gait. Psych: Awake, alert, with orientation to person, place and time. Behavior, mood, and affect are within normal limits. Vital Signs: 21:35 BP 147 / 64; Pulse 84; Resp 18; Temp 99.4; Pulse Ox 100% on R/A; Weight 72.57 kg; iw Height 5 ft. 8 in. ; 22:21 BP 137 / 66; Pulse 96; Resp 20; Temp 98; Pulse Ox 100% ; rv 21:35 Body Mass Index 24.33 (72.57 kg, 172.72 cm) iw MDM: 21:27 Patient medically screened. rt 22:20 Differential Diagnosis COVID, pneumonia, postinfectious bronchitis. Data reviewed: rt vital signs, nurses notes. I considered the following discharge prescriptions or medication management in the emergency department Medications were administered in the Emergency Department. See MAR. Independent interpretation of the following test(s) in the Emergency Department X-Ray: My interpretation is No consolidation seen on interpretation of the x-ray images. Test considered but Not performed: CT: Low suspicion for PE, CT angiogram not indicated. Counseling: I had a detailed discussion with the patient and/or guardian regarding the historical points, exam findings, and any diagnostic results supporting the discharge/admit diagnosis, lab results, radiology results, the need for outpatient follow up, No hypoxia, pneumonia, signs of sepsis, no indications for admission to the hospital.. Response to treatment: the patient's symptoms have mildly improved after treatment. 10/21 21:32 Order name: CBC with Diff; Complete Time: 22:10 rt 10/21 21:32 Order name: CMP; Complete Time: 22:10 rt 10/21 21:32 Order name: Chest Single View XRAY; Complete Time: 22:10 rt Administered Medications: 21:49 Drug: DuoNeb Nebulize (3:1) (2.5 mg - 0.5 mg) 3 ml Route: Nebulizer; rv 22:20 Follow up: Response: No adverse reaction rv Disposition Summary: 10/21/22 22:16 Discharge Ordered Location: Home rt Problem: an ongoing problem rt Symptoms: have improved rt Condition: Stable rt Diagnosis - COVID rt Followup: rt - With: Private Physician - When: 2 - 3 days - Reason: Discharge Instructions: - Discharge Summary Sheet rt - COVID-19 rt - 10 Things You Can Do to Manage Your COVID-19 Symptoms at Home - [facility] (08/21/2020) rt Forms: - Medication Reconciliation Form rt - Thank You Letter rt - Antibiotic Education rt - Prescription Opioid Use rt - Patient Portal Instructions rt - Leadership Thank You Letter rt Prescriptions: - albuterol sulfate 90 mcg/actuation Inhalation HFA Aerosol Inhaler - inhale 3 puff by INHALATION route every 3 hours as needed for shortness of rt breath or wheezing; 2 Each; Refills: 0, Product Selection Permitted - ondansetron 4 mg Oral Tablet,disintegrating - take 1 tablet by ORAL route every 6 hours As needed for nausea; 18 tablet; rt Refills: 0, Product Selection Permitted - Tessalon Perles 100 mg Oral Capsule - take 1 capsule by ORAL route every 8 hours As needed; 15 capsule; Refills: 0, rt Product Selection Permitted - Prednisone 20 mg Oral Tablet - take 2 tablets by ORAL route once daily for 5 days; 10 tablet; Refills: 0, rt Product Selection Permitted Signatures: Dispatcher [employer] Neva Palmer RN RN iw Vicente, Ronaldo, RN RN rv [place], Ryan, MD MD rt
[2022-10-21 22:44] VITALS: O2SAT 100
[2022-10-21 22:48] VITALS: BP 137/66; TEMP 98
== END 2022-10-21 22:23 | disposition home or self-care (01) ==
LOC: ER 21:19
DX: U07.1 COVID-19 (principal); Z88.5 Allergy status to narcotic agent; Z91.048 Other nonmedicinal substance allergy status
CPT/HCPCS: 85025; 36415; 80053; 71045; 94640; 99284; J7613; J7644

== ENCOUNTER 2023-05-17 13:45 | Emergency (ER) | payer OTHER ==
[2023-05-17] MEDS ORDERED: ASPIRIN 81 MG CHEWABLE TABLET ONE (14:25)
[2023-05-17 14:52] LABS: Absolute Lymphocytes (CBC) 1.6 K/uL (0.7-4.9); Absolute Monocytes 0.4 K/uL (0.1-1.3); Absolute Neutrophil 2.3 K/uL (1.8-8.0); Basophils % 0.4 % (0-1.3); Eosinophils % 0.4 % (0-4.4); Hematocrit 45.3 % (36.0-45.0); Hemoglobin 14.9 g/dL (12.0-15.0); Lymphocytes % 37.3 % (15.3-44.8); MCH 29.5 pg (27.0-35.0); MCHC 32.8 g/dL (32.0-36.0); MPV 8.8 fL (7.6-11.3); Monocytes % 9.4 % (3.3-12.3); Neutrophils % 52.5 % (41.7-73.7); Nucleated Red Blood Cells % 0.1 % (0-0); Platelets 180 thou/uL (152-406); RBC Red Blood Cell Count 5.04 M/uL (3.86-4.86); Red Cell Distribution Width 13.1 % (12.1-15.2)
--- NOTE | 2023-05-17 15:00 | RAD REPORT ---
EXAM DESCRIPTION: Kiana Single View05/17/2023 2:38 pm CLINICAL HISTORY: Chest pain COMPARISON: 2022 FINDINGS: The lungs appear clear of acute infiltrate. The heart is normal size IMPRESSION: No acute abnormalities displayed
[2023-05-17 15:17] LABS: Anion Gap 7.1 mEq/L (5.0-15.0); Potassium 4.1 mEq/L (3.5-5.1); Troponin High Sensitivity 3.8 pg/mL (<58.9)
--- NOTE | 2023-05-17 17:33 | ER ---
Nurse's Notes [facility] Name: Kim Mera Age: 78 yrs Sex: Female : 1945 Arrival Date: 05/17/2023 Time: 13:45 Bed 4 Private MD: Dylan Davison Diagnosis: Chest pain, unspecified Presentation: 05/16 13:54 Chief complaint: Patient states: CP for 2 weeks with SOB. Slight cough, no fevers. ll1 Coronavirus screen: Vaccine status: Patient reports being unvaccinated. Client denies travel out of the [place] in the last 14 days. cough unrelated to allergies, Client presents with at least one sign or symptom that may indicate coronavirus-19. Standard/surgical mask placed on the client. Ebola Screen: Patient denies travel to an Ebola-affected area in the 21 days before illness onset. Initial Sepsis Screen: Does the patient meet any 2 criteria? No. Patient's initial sepsis screen is negative. Does the patient have a suspected source of infection? No. Patient's initial sepsis screen is negative. Risk Assessment: Do you want to hurt yourself or someone else? Patient reports no desire to harm self or others. Onset of symptoms was May 04, 2023. 13:54 Method Of Arrival: Ambulatory ll1 13:54 Acuity: JUAN 3 ll1 Triage Assessment: 13:57 General: Appears uncomfortable, Behavior is calm, cooperative, appropriate for age. ll1 Pain: Complains of pain in chest Pain currently is 5 out of 10 on a pain scale. Quality of pain is described as aching. Cardiovascular: Reports chest pain, shortness of breath. Respiratory: Reports shortness of breath cough that is. Historical: - Allergies: 13:55 adhesive tape; ld1 13:55 HYDROCODONE; ld1 13:55 hydromorphone; ld1 13:55 Morphine; ld1 13:55 HYDROCODONE; ll1 13:55 hydromorphone; ll1 13:55 adhesive tape; ll1 13:55 Morphine; ll1 - PMHx: 13:55 Arthritis; Firbomyalgia; High Cholesterol; restless leg syndrome; ld1 13:55 Arthritis; Firbomyalgia; High Cholesterol; restless leg syndrome; ll1 - PSHx: 13:55 Appendectomy; back (ab); Cholecystectomy; hernia (ab); Left hip; pins; Total abdominal ld1 hysterectomy; 13:55 Appendectomy; back; Cholecystectomy; hernia; Left hip; pins; Total abdominal ll1 hysterectomy; cervicle fusion (Total abdominal hysterectomy); - Immunization history:: Adult Immunizations up to date. - Social history:: Smoking status: Patient/guardian denies using tobacco. - History obtained from: . Screenin:20 [facility] ED Fall Risk Assessment (Adult) History of falling in the last 3 months, kc6 including since admission No falls in past 3 months (0 pts) Confusion or Disorientation No (0 pts) Intoxicated or Sedated No (0 pts) Impaired Gait No (0 pts) Mobility Assist Device Used No (0 pt) Altered Elimination No (0 pt) Score/Fall Risk Level 0 - 2 = Low Risk. Abuse screen: Denies threats or abuse. Denies injuries from another. Nutritional screening: No deficits noted. Tuberculosis screening: No symptoms or risk factors identified. Assessment: 14:29 Reassessment: No changes from previously documented assessment. Patient and/or family ll1 updated on plan of care and expected duration. Pain level reassessed. 15:20 General: Appears in no apparent distress. comfortable, well groomed, well developed, kc6 Behavior is calm, cooperative, appropriate for age. Pain: Complains of pain in left lateral anterior chest Pain does not radiate. Pain currently is 5 out of 10 on a pain scale. Pain began 2 weeks ago. Neuro: Level of Consciousness is awake, alert, obeys commands, Oriented to person, place, time, situation, Appropriate for age. Cardiovascular: Capillary refill < 3 seconds. Respiratory: Reports shortness of breath on exertion Airway is patent Trachea midline Respiratory effort is even, unlabored, Respiratory pattern is regular, symmetrical. GI: No signs and/or symptoms were reported involving the gastrointestinal system. : No signs and/or symptoms were reported regarding the genitourinary system. EENT: No signs and/or symptoms were reported regarding the EENT system. Derm: No signs and/or symptoms reported regarding the dermatologic system. Skin is intact, is healthy with good turgor, Skin is pink, warm \T\ dry. Musculoskeletal: No signs and/or symptoms reported regarding the musculoskeletal system. Circulation, motion, and sensation intact. Capillary refill < 3 seconds, Range of motion: intact in all extremities. 16:20 Reassessment: Patient appears in no apparent distress at this time. No changes from kc6 previously documented assessment. Patient and/or family updated on plan of care and expected duration. Pain level reassessed. Patient is alert, oriented x 3, equal unlabored respirations, skin warm/dry/pink. 17:09 Reassessment: Patient appears in no apparent distress at this time. No changes from kc6 previously documented assessment. Patient and/or family updated on plan of care and expected duration. Pain level reassessed. Patient is alert, oriented x 3, equal unlabored respirations, skin warm/dry/pink. Patient states symptoms have not improved. Vital Signs: 13:54 BP 127 / 61; Pulse 58; Resp 16; Temp 97.9; Pulse Ox 99% on R/A; Weight 73.03 kg; Height ll1 5 ft. 9 in. ; Pain 5/10; 15:22 BP 141 / 52; Pulse 64; Resp 16 S; Pulse Ox 94% on R/A; kc6 17:12 BP 120 / 72; Pulse 66; Resp 15 S; Pulse Ox 100% on R/A; kc6 13:54 Body Mass Index 23.78 (73.03 kg, 175.26 cm) ll1 13:54 Pain Scale: Adult ll1 ED Course: 13:47 Patient arrived in ED. mr 13:47 Dylan Davison DO is Private Physician. mr 13:50 Althea Cervantes is Attending Physician. ci 13:55 Triage completed. ll1 13:56 Arm band placed on Patient placed in an exam room, on a stretcher. ll1 14:20 Initial lab(s) drawn, by dc, sent to lab. Inserted saline lock: 22 gauge in right ll1 antecubital area, using aseptic technique. Blood collected. 14:40 XRAY Chest (1 view) In Process Unspecified. EDMS 15:13 Perla Ambrosio, NIC is Primary Nurse. kc6 15:20 Patient has correct armband on for positive identification. Bed in low position. Call kc6 light in reach. Side rails up X 1. Client placed on continuous cardiac and pulse oximetry monitoring. NIBP monitoring applied. monitor tech on. Warm blanket given. 17:09 Troponin High Sensitivity Sent. kc6 17:43 No provider procedures requiring assistance completed. IV discontinued, intact, kc6 bleeding controlled, No redness/swelling at site. Pressure dressing applied. Administered Medications: 14:28 Drug: Aspirin PO Chewable Tablet 324 mg PO once; 81 mg tablets x 4 Route: PO; ll1 17:03 Follow up: Response: No adverse reaction kc6 Medication: 17:43 VIS not applicable for this client. kc6 Outcome: 17:33 Discharge ordered by . ci 17:43 Discharged to home ambulatory, with significant other, kc6 17:43 Condition: good 17:43 Discharge instructions given to patient, Instructed on discharge instructions, follow up and referral plans. Demonstrated understanding of instructions, follow-up care, 17:43 Patient left the ED. kc6 Signatures: Dispatcher [employer] EDMS Naina Rosales, Cameron Reg mr Adelaida Sutton, RN RN ll1 Yudy Lopez RN RN [email or web address] Perla Ambrosio RN RN kc6 Althea Cervantes
--- NOTE | 2023-05-17 17:34 | EDPHYS ---
Physician Documentation [facility] Name: Kim Mera Age: 78 yrs Sex: Female : 1945 Arrival Date: 05/17/2023 Time: 13:45 Bed 4 Private MD: [facility] ED Physician Althea Cervantes HPI: 05/16 17:06 This 78 yrs old Female presents to ER via Ambulatory with complaints of Chest Pain. ci 17:06 Patient is a 78-year-old female with PMH arthritis, fibromyalgia, hyperlipidemia, newly ci diagnosed pulmonary arterial hypertension who presents to the ED with persistent shortness of breath and chest pain that began a month ago. Chest pain is left substernal chest, feels like pressure, intermittent, nonradiating. Patient states she was diagnosed by a doctor a month ago with pulmonary arterial hypertension, started on losartan. She has been taking this with no improvement. Patient also complains of bilateral chronic leg pain.. Historical: - Allergies: 13:55 adhesive tape; ld1 13:55 HYDROCODONE; ld1 13:55 hydromorphone; ld1 13:55 Morphine; ld1 13:55 HYDROCODONE; ll1 13:55 hydromorphone; ll1 13:55 adhesive tape; ll1 13:55 Morphine; ll1 - PMHx: 13:55 Arthritis; Firbomyalgia; High Cholesterol; restless leg syndrome; ld1 13:55 Arthritis; Firbomyalgia; High Cholesterol; restless leg syndrome; ll1 - PSHx: 13:55 Appendectomy; back (ab); Cholecystectomy; hernia (ab); Left hip; pins; Total abdominal ld1 hysterectomy; 13:55 Appendectomy; back; Cholecystectomy; hernia; Left hip; pins; Total abdominal ll1 hysterectomy; cervicle fusion (Total abdominal hysterectomy); - Immunization history:: Adult Immunizations up to date. - Social history:: Smoking status: Patient/guardian denies using tobacco. - History obtained from: . ROS: 17:06 Cardiovascular: Positive for chest pain, Negative for edema, orthopnea, palpitations, ci paroxysmal nocturnal dyspnea, 17:06 Respiratory: Positive for shortness of breath, Exam: 17:06 Constitutional: This is a well developed, well nourished patient who is awake, alert, ci and in no acute distress. Head/Face: Normocephalic, atraumatic. Eyes: Pupils equal round and reactive to light, extra-ocular motions intact. Lids and lashes normal. Conjunctiva and sclera are non-icteric and not injected. Cornea within normal limits. Periorbital areas with no swelling, redness, or edema. ENT: Nares patent. No nasal discharge, no septal abnormalities noted. Tympanic membranes are normal and external auditory canals are clear. Oropharynx with no redness, swelling, or masses, exudates, or evidence of obstruction, uvula midline. Mucous membranes moist. Neck: Trachea midline, no thyromegaly or masses palpated, and no cervical lymphadenopathy. Supple, full range of motion without nuchal rigidity, or vertebral point tenderness. No Meningismus. Chest/axilla: Normal chest wall appearance and motion. Nontender with no deformity. No lesions are appreciated. Cardiovascular: Regular rate and rhythm with a normal S1 and S2. No gallops, murmurs, or rubs. Normal PMI, no JVD. No pulse deficits. Respiratory: Lungs have equal breath sounds bilaterally, clear to auscultation and percussion. No rales, rhonchi or wheezes noted. No increased work of breathing, no retractions or nasal flaring. Abdomen/GI: Soft, non-tender, with normal bowel sounds. No distension or tympany. No guarding or rebound. No evidence of tenderness throughout. Back: No spinal tenderness. No costovertebral tenderness. Full range of motion. Skin: Warm, dry with normal turgor. Normal color with no rashes, no lesions, and no evidence of cellulitis. MS/ Extremity: Pulses equal, no cyanosis. Neurovascular intact. Full, normal range of motion. Neuro: Awake and alert, GCS 15, oriented to person, place, time, and situation. Cranial nerves II-XII grossly intact. Motor strength 5/5 in all extremities. Sensory grossly intact. Cerebellar exam normal. Normal gait. Psych: Awake, alert, with orientation to person, place and time. Behavior, mood, and affect are within normal limits. 17:06 ECG was reviewed by the Attending Physician. EKG shows sinus bradycardia, HR 57, no acute ischemic changes, QTc 453 ms. Vital Signs: 13:54 BP 127 / 61; Pulse 58; Resp 16; Temp 97.9; Pulse Ox 99% on R/A; Weight 73.03 kg; Height ll1 5 ft. 9 in. ; Pain 5/10; 15:22 BP 141 / 52; Pulse 64; Resp 16 S; Pulse Ox 94% on R/A; kc6 17:12 BP 120 / 72; Pulse 66; Resp 15 S; Pulse Ox 100% on R/A; kc6 13:54 Body Mass Index 23.78 (73.03 kg, 175.26 cm) ll1 13:54 Pain Scale: Adult ll1 MDM: 13:50 Patient medically screened. ci 17:06 Differential diagnosis: acute myocardial infarction, congestive heart failure ci pneumonia, pneumothorax, stable angina, unstable angina. HEART Score: History: Slightly Suspicious (0), ECG: Normal (0), Age: > or = 65 years (2), Risk Factors: 1 or 2 risk factors (1), Troponin: < or = 1 x Normal Limit (0), Total Score = 3. The patient was given aspirin in the Emergency Department. Data reviewed: vital signs, nurses notes. 05/16 14:08 Order name: Basic Metabolic Panel; Complete Time: 15:26 ci 05/16 14:08 Order name: CBC with Diff; Complete Time: 15:26 ci 05/16 14:08 Order name: NT PRO-BNP; Complete Time: 15:26 ci 05/16 14:08 Order name: Troponin HS; Complete Time: 15:26 ci 05/16 16:38 Order name: Troponin High Sensitivity ci 05/16 14:08 Order name: XRAY Chest (1 view); Complete Time: 15:26 ci 05/16 14:08 Order name: EKG; Complete Time: 14:09 ci 05/16 14:08 Order name: Cardiac monitoring; Complete Time: 14:34 ci 05/16 14:08 Order name: EKG - Nurse/Tech; Complete Time: 14:34 ci 05/16 14:08 Order name: IV Saline Lock; Complete Time: 14:23 ci 05/16 14:08 Order name: Labs collected and sent; Complete Time: 14:23 ci 05/16 14:08 Order name: O2 Per Protocol; Complete Time: 14:23 ci 05/16 14:08 Order name: O2 Sat Monitoring; Complete Time: 14:23 ci Administered Medications: 14:28 Drug: Aspirin PO Chewable Tablet 324 mg PO once; 81 mg tablets x 4 Route: PO; ll1 17:03 Follow up: Response: No adverse reaction kc6 Disposition Summary: 05/17/23 17:33 Discharge Ordered Notes: Location: Home ci Problem: an ongoing problem ci Condition: Stable ci Diagnosis - Chest pain, unspecified ci Followup: ci - With: Private Physician - When: 1 - 2 days - Reason: Recheck today's complaints, Re-evaluation by your physician Discharge Instructions: - Discharge Summary Sheet ci - Nonspecific Chest Pain, Adult, [id number] ci Forms: - Medication Reconciliation Form ci - Thank You Letter ci - Antibiotic Education ci - Prescription Opioid Use ci - Patient Portal Instructions ci - Leadership Thank You Letter ci Signatures: Dispatcher [employer] Adelaida Fernandez RN RN ll1 Yudy Lopez RN RN ld1 IheonunekwuAlthea Kaitlyn RN kc6
[2023-05-17 19:48] VITALS: BP 120/72; TEMP 97.9; O2SAT 100
--- NOTE | 2023-05-18 17:48 | EKG ---
Test Date: 2023-05-17 Test Time: 14:29:44 Regroover: LOBO MEASUREMENT RESULTS: Intervals: Rate: 57 DC: 168 QRSD: 104 QT: 466 QTc: 453 Roscoe: P: 35 DC: 168 QRS: -43 T: 60 INTERPRETIVE STATEMENTS: Sinus bradycardia Left axis deviation Abnormal ECG Compared to ECG 02/05/2020 16:24:09 Left-axis deviation now present Electronically Signed On 05-18-23 17:46:30 CDT by John Aguayo
== END 2023-05-17 17:43 | disposition home or self-care (01) ==
LOC: ER 13:45
DX: R07.9 Chest pain, unspecified (principal); E78.00 Pure hypercholesterolemia, unspecified; Z88.5 Allergy status to narcotic agent; Z91.048 Other nonmedicinal substance allergy status
CPT/HCPCS: 36415; 71045; 80048; 83880; 84484; 85025; 93005

== ENCOUNTER 2023-07-25 11:29 | Emergency (ER) | payer OTHER ==
--- NOTE | 2023-07-25 13:03 | RAD REPORT ---
EXAM DESCRIPTION: RAD - Foot Left 3 View - 07/25/2023 12:36 pm CLINICAL HISTORY: foot pain Pain and swelling COMPARISON: Foot Left 3 View dated 10/09/2012 FINDINGS: No acute fracture or dislocation seen. No aggressive marrow lesion. Small posterior calcan eal spur. Mild degenerate changes seen great toe interphalangeal joint and first MTP joint.
[2023-07-25 14:53] VITALS: BP 151/66; TEMP 98.3; O2SAT 100
--- NOTE | 2023-07-25 18:04 | EDPHYS ---
Physician Documentation [facility] Name: Kim Mera Age: 78 yrs Sex: Female : 1945 Arrival Date: 07/25/2023 Time: 11:29 Bed 12 Private MD: ED Physician Jamaal Sykes HPI: 07/24 11:46 This 78 yrs old Female presents to ER via Ambulatory with complaints of Foot ec2 Pain. 11:46 Patient arrives today for evaluation of left foot pain. Patient reports that she has ec2 chronic left foot pain, has had negative ultrasounds, is having worsening pain today, no trauma or injuries. History of fibromyalgia.. Historical: - Allergies: 11:33 adhesive tape; ll1 11:33 HYDROCODONE; ll1 11:33 hydromorphone; ll1 11:33 Morphine; ll1 - PMHx: 11:33 Arthritis; Firbomyalgia; High Cholesterol; restless leg syndrome; ll1 - PSHx: 11:33 Appendectomy; back; cervicle fusion (ab); Cholecystectomy; hernia; Left hip; pins; ll1 Total abdominal hysterectomy; - Immunization history:: Adult Immunizations up to date. - Infectious Disease History:: Denies. - Social history:: Smoking status: Patient denies any tobacco usage or history of. ROS: 11:46 Constitutional: as per hpi ec2 Exam: 11:46 Constitutional: GEN: NAD Head: atraumatic Eyes: EOMI Ears: External ears are ec2 normal. CV: regular rate LUNGS: no respiratory distress ABD: non-distended MSK: no plantar aspect of the left foot with TTP, no deformities or crepitus appreciated,, surrounding redness, no fluctuance appreciated. Small blister on the dorsum of the left foot NEURO: moves all extremities equally Vital Signs: 11:41 BP 151 / 66; Pulse 61; Resp 17; Temp 98.3; Pulse Ox 100% ; Weight 74.84 kg; Height 5 ll1 ft. 8 in. ; Pain 4/10; 11:41 Body Mass Index 25.09 (74.84 kg, 172.72 cm) ll1 11:41 Pain Scale: Adult ll1 MDM: 11:39 Patient medically screened. ec2 11:46 Data reviewed: vital signs. ED course: Patient arrives today for evaluation of left ec2 foot pain. Examination remarkable for skin and MSK findings as above. Will obtain x-ray of the foot. Differential diagnosis includes osteomyelitis, cellulitis, bony spur. . 13:54 ED course: But,Radiograph shows arthritis. However the patient on medications with ec2 methocarbamol for pain, patient also has some redness of the dorsum which with recent antibiotics for cellulitis. Patient also complaining that I did not solve the problem despite ongoing for several months. Instructed to show need to follow-up with the primary care doctor . 07/24 11:45 Order name: Foot Left 3 View XRAY; Complete Time: 13:21 ec2 Administered Medications: No medications were administered Disposition Summary: 07/25/23 13:55 Discharge Ordered Notes: Location: Home ec2 Condition: Stable ec2 Diagnosis - Unspecified osteoarthritis, unspecified site ec2 - Cellulitis of left lower limb ec2 Followup: ec2 - With: Private Physician - When: - Reason: Re-evaluation by your physician Discharge Instructions: - Discharge Summary Sheet ec2 - Cellulitis, Adult ec2 - Arthritis, Obna-ki-Sryu ec2 Forms: - Medication Reconciliation Form ec2 - Antibiotic Education ec2 - Prescription Opioid Use ec2 - Patient Portal Instructions ec2 - Leadership Thank You Letter ec2 Prescriptions: - Cephalexin 500 mg Oral Capsule - take 1 capsule ORAL route every 6 hours for 10 days; 40 capsule; Refills: 0, ec2 Product Selection Permitted - methocarbamol 500 mg Oral tablet - take 1 tablet ORAL route 4 times per day; 20 tablet; Refills: 0, Product ec2 Selection Permitted Signatures: Dispatcher [employer] Adelaida Fernandez RN RN 1 Jamaal Sykes MD MD ec2 Corrections: (The following items were deleted from the chart) 11:47 11:46 Constitutional: GEN: NAD Head: atraumatic Eyes: EOMI Ears: External ears are ec2 normal. CV: regular rate LUNGS: no respiratory distress ABD: non-distended SKIN: no evidence of rashes MSK: no plantar aspect of the left foot with TTP, no deformities or crepitus appreciated,, surrounding redness, no fluctuance appreciated. Small blister on the dorsum of the left foot NEURO: moves all extremities equally ec2
--- NOTE | 2023-07-25 18:04 | ER ---
Nurse's Notes [facility] Name: Kim Mera Age: 78 yrs Sex: Female : 1945 Arrival Date: 07/25/2023 Time: 11:29 Bed 12 Private MD: Diagnosis: Unspecified osteoarthritis, unspecified site;Cellulitis of left lower limb Presentation: 07/24 11:34 Risk Assessment: Do you want to hurt yourself or someone else? Patient reports no ll1 desire to harm self or others. 11:41 Chief complaint: Patient states: L foot pain for a few months, worse the past few days. ll1 Has been seen for this, no findings and its not getting better. Coronavirus screen: Client denies travel out of the [place] in the last 14 days. At this time, the client does not indicate any symptoms associated with coronavirus-19. Ebola Screen: Patient denies travel to an Ebola-affected area in the 21 days before illness onset. Initial Sepsis Screen: Does the patient meet any 2 criteria? No. Patient's initial sepsis screen is negative. Does the patient have a suspected source of infection? No. Patient's initial sepsis screen is negative. Onset of symptoms was February 06, 2023. 11:41 Method Of Arrival: Ambulatory ll1 11:41 Acuity: JUAN 4 ll1 Triage Assessment: 11:43 General: Appears uncomfortable, Behavior is calm, cooperative, appropriate for age. ll1 Pain: Complains of pain in left foot Pain currently is 4 out of 10 on a pain scale. Quality of pain is described as aching. Derm: Reports abrasion L foot. Musculoskeletal: Reports pain in left foot. Injury Description: no known injuries. Historical: - Allergies: 11:33 adhesive tape; ll1 11:33 HYDROCODONE; ll1 11:33 hydromorphone; ll1 11:33 Morphine; ll1 - PMHx: 11:33 Arthritis; Firbomyalgia; High Cholesterol; restless leg syndrome; ll1 - PSHx: 11:33 Appendectomy; back; cervicle fusion (ab); Cholecystectomy; hernia; Left hip; pins; ll1 Total abdominal hysterectomy; - Immunization history:: Adult Immunizations up to date. - Infectious Disease History:: Denies. - Social history:: Smoking status: Patient denies any tobacco usage or history of. Screenin:11 [facility] ED Fall Risk Assessment (Adult) History of falling in the last 3 months, as6 including since admission Yes- single mechanical fall (1 pt) Confusion or Disorientation No (0 pts) Intoxicated or Sedated No (0 pts) Impaired Gait No (0 pts) Mobility Assist Device Used No (0 pt) Altered Elimination No (0 pt) Score/Fall Risk Level 0 - 2 = Low Risk Oriented to surroundings, Maintained a safe environment, Educated pt \T\ family on fall prevention, incl call for assistance when getting out of bed, Assessed \T\ reinforced patient's understanding of fall precautions. Abuse screen: Denies threats or abuse. Denies injuries from another. Nutritional screening: No deficits noted. Tuberculosis screening: No symptoms or risk factors identified. Assessment: 13:09 Reassessment: Patient and/or family updated on plan of care and expected duration. Pain ll1 level reassessed. Vital Signs: 11:41 BP 151 / 66; Pulse 61; Resp 17; Temp 98.3; Pulse Ox 100% ; Weight 74.84 kg; Height 5 ll1 ft. 8 in. ; Pain 4/10; 11:41 Body Mass Index 25.09 (74.84 kg, 172.72 cm) ll1 11:41 Pain Scale: Adult ll1 ED Course: 11:32 Patient arrived in ED. mr 11:33 Jamaal Sykes MD is Attending Physician. ec2 11:34 Arm band placed on. ll1 11:43 Triage completed. ll1 12:37 Foot Left 3 View XRAY In Process Unspecified. EDMS 13:09 Patient placed in an exam room, on a stretcher. ll1 14:11 Bed in low position. Call light in reach. Side rails up X 1. Provided Education on: pt as6 left before receiving discharge paperwork and rx. 14:11 No provider procedures requiring assistance completed. Patient did not have IV access as6 during this emergency room visit. Administered Medications: No medications were administered Medication: 14:11 VIS not applicable for this client. as6 Outcome: 13:55 Discharge ordered by . ec2 14:11 Discharged to home ambulatory, as6 14:11 Condition: stable 14:11 Discharge instructions given to pt left before receiving discharge papers 14:12 Patient left the ED. as6 Signatures: Dispatcher [employer] Naina Cain, Reg Reg mr Adelaida Sutton, NIC RN ll1 Poncho Hernandez RN RN as6 Jamaal Sykes MD MD ec2
== END 2023-07-25 14:12 | disposition home or self-care (01) ==
LOC: ER 11:29
DX: L03.116 Cellulitis of left lower limb (principal); M19.90 Unspecified osteoarthritis, unspecified site

== ENCOUNTER 2023-08-09 14:11 | Emergency (ER) | payer OTHER ==
--- NOTE | 2023-08-09 14:53 | ER ---
Nurse's Notes [facility] Name: Kim Mera Age: 78 yrs Sex: Female : 1945 Arrival Date: 08/09/2023 Time: 14:11 Bed [id number] Private MD: Diagnosis: Presentation: 08/08 14:23 Chief complaint: Patient states: UPPER ABD PAIN FOR A COUPLE OF DAYS. UPPER ABD PAIN db STARTED TODAY WITH LEFT ARM PAIN. Coronavirus screen: Client denies travel out of the [place] in the last 14 days. At this time, the client does not indicate any symptoms associated with coronavirus-19. Ebola Screen: Patient negative for fever greater than or equal to 101.5 degrees Fahrenheit, and additional compatible Ebola Virus Disease symptoms Patient denies exposure to infectious person. Patient denies travel to an Ebola-affected area in the 21 days before illness onset. No symptoms or risks identified at this time. Initial Sepsis Screen: Does the patient meet any 2 criteria? No. Patient's initial sepsis screen is negative. Does the patient have a suspected source of infection? No. Patient's initial sepsis screen is negative. Risk Assessment: Do you want to hurt yourself or someone else? Patient reports no desire to harm self or others. Onset of symptoms was August 09, 2023. 14:23 Method Of Arrival: Ambulatory db 14:23 Acuity: JUAN 2 db Triage Assessment: 14:25 General: Appears uncomfortable, Behavior is cooperative, anxious, crying, restless. db Pain: Complains of pain in EEPIGASTRIC, LEFT SHOULDER. Cardiovascular: Reports chest pain. Respiratory: Airway is patent Respiratory effort is even, unlabored, Respiratory pattern is regular, symmetrical. GI: Abdomen is non-distended, Reports upper abdominal pain. 14:32 Neuro: Level of Consciousness is awake, alert, obeys commands, Oriented to person, db place, time, situation. Historical: - Allergies: 14:25 adhesive tape; db 14:25 HYDROCODONE; db 14:25 hydromorphone; db 14:25 Morphine; db - PMHx: 14:25 Arthritis; Firbomyalgia; High Cholesterol; restless leg syndrome; db - PSHx: 14:25 back; cervicle fusion; Cholecystectomy; Appendectomy; hernia; Total abdominal db hysterectomy; Left hip; pins; - Immunization history:: Adult Immunizations unknown. - Infectious Disease History:: Denies. - Social history:: Smoking status: Patient denies any tobacco usage or history of. Screenin:20 Abuse screen: Denies threats or abuse. Denies injuries from another. Nutritional iw screening: No deficits noted. Tuberculosis screening: No symptoms or risk factors identified. Assessment: 14:50 General: Pt reported to registration that she is leaving. Encouraged by registration as6 staff to stay for evaluation. PT declined. 14:53 General: Neva LUCERO spoke with patient and encouraged her to stay for evaluation. Opened kb3 some ER rooms and took pt directly back to a room. Pt remains in ER to continue with evaluation.. 15:20 General: Appears Behavior is agitated, crying. Pain: Complains of pain in chest Pain iw does not radiate. Neuro: Level of Consciousness is awake, alert, obeys commands, Oriented to person, place, time, situation, Moves all extremities. Full function. 15:32 Reassessment: pt requesting her IV to be removed. iw 15:41 Reassessment: pt states she needs to leave to check on her , she will check her iw lab results at home. Vital Signs: 14:23 Weight 74.84 kg; Height 5 ft. 7 in. ; Pain 5/10; db 15:19 BP 153 / 53; Pulse 61; Resp 16; Temp 98; Pulse Ox 100% on R/A; iw 14:23 Body Mass Index 25.84 (74.84 kg, 170.18 cm) db 14:23 Pain Scale: Adult db ED Course: 14:14 Patient arrived in ED. ra3 14:25 Triage completed. db 14:26 Colt Hawley PA is PHCP. cp 14:26 Colt Kahn MD is Attending Physician. cp 14:26 Arm band placed on. db 14:32 EKG done, by ED staff, reviewed by Colt CARDOSO. db 14:56 Neva Jimenez, RN is Primary Nurse. iw 15:15 XRAY Chest (1 view) In Process Unspecified. EDMS 15:20 Initial lab(s) drawn, by me, sent to lab. Inserted saline lock: 22 gauge in right iw antecubital area, using aseptic technique. Blood collected. Administered Medications: 14:35 CANCELLED (Physician Discretion): aspirinchewable tablet 162 mg PO once cp 14:35 CANCELLED (Physician Discretion): ns 0.9% 1000 ml IV at 125 ml/hr continuous cp 15:50 Not Given (Patient Refused): aspirinchewable tablet 324 mg PO once; 81 mg tablets x 4 iw 15:50 Not Given (Patient Refused): GI Cocktail without - (maaloxsuspension 30 ml, iw lidocaine mucous membrane liquid 2 % 15 ml) PO once Outcome: 15:41 Eloped from patient exam room, after seeing physician Time discovered patient gone: iw August 09, 2023 at 15:41 15:41 Condition: good 15:41 Instructed on 17:06 Patient left the ED. iw Signatures: Dispatcher [employer] EDNeva Hayden RN RN iw Colt Hawley PA PA cp Slawson, Ashby, RN RN as6 Magda Patel RN RN kb3 Shilpa Cyr, RN RN db Emily Winchester ra3 Corrections: (The following items were deleted from the chart) 14:33 14:25 General: Appears uncomfortable, Behavior is cooperative, anxious, db db 14:33 14:25 Cardiovascular: Reports chest pain, db db
--- NOTE | 2023-08-09 15:22 | RAD REPORT ---
EXAM DESCRIPTION: RAD - Chest Single View - 08/09/2023 3:13 pm CLINICAL HISTORY: CHEST PAIN Chest pain. COMPARISON: <Comparisons> FINDINGS: Portable technique limits examination quality. The lungs are grossly clear. The heart is normal in size. No displaced fractures.Cervical hardware pl ate. IMPRESSION: No acute intrathoracic process suspected.
[2023-08-09 15:40] LABS: Absolute Lymphocytes (CBC) 1.6 K/uL (0.7-4.9); Absolute Monocytes 0.4 K/uL (0.1-1.3); Absolute Neutrophil 2.9 K/uL (1.8-8.0); Basophils % 0.4 % (0-1.3); Eosinophils % 0.3 % (0-4.4); Hematocrit 42.9 % (36.0-45.0); Hemoglobin 14.4 g/dL (12.0-15.0); Lymphocytes % 32.4 % (15.3-44.8); MCH 30.2 pg (27.0-35.0); MCHC 33.5 g/dL (32.0-36.0); MCV 90.4 fL (80-100); MPV 8.1 fL (7.6-11.3); Monocytes % 8.4 % (3.3-12.3); Neutrophils % 58.5 % (41.7-73.7); Nucleated Red Blood Cells % 0.1 % (0-0); Platelets 210 thou/uL (152-406); RBC Red Blood Cell Count 4.75 M/uL (3.86-4.86); Red Cell Distribution Width 13.4 % (12.1-15.2)
[2023-08-09 15:51] LABS: D-Dimer 0.623 FEUug/mL (0-0.50)
[2023-08-09 15:52] LABS: PT Prothrombin Time 10.8 SECONDS (9.4-12.5); Protime INR 0.98
[2023-08-09 15:53] LABS: Albumin 3.6 g/dL (3.4-5.0); Albumin/Globulin Ratio 1.2 (1.1-1.8); Anion Gap 4.3 mEq/L (5.0-15.0); Bilirubin Direct 0.3 mg/dL (0-0.2); Bilirubin Indirect, Calculated 0.6 mg/dL (0.2-0.8); Bilirubin Total 0.9 mg/dL (0.2-1.0); Globulin 2.9 g/dL (2.3-3.5); Magnesium 1.8 mg/dL (1.6-2.4); Potassium 3.3 mEq/L (3.5-5.1); Protein, Total 6.5 g/dL (6.4-8.2); Troponin High Sensitivity 4.7 pg/mL (<58.9)
--- NOTE | 2023-08-09 17:07 | EDPHYS ---
Physician Documentation [facility] Name: Kim Mera Age: 78 yrs Sex: Female : 1945 Arrival Date: 08/09/2023 Time: 14:11 Bed [id number] Private MD: ED Physician Colt Kahn HPI: 08/08 14:33 This 78 yrs old Female presents to ER via Ambulatory with complaints of Chest Pain. cp 14:33 The patient or guardian reports chest pain that is located primarily in the radiating cp from abdomen. 14:33 Onset: today. Associated signs and symptoms: Pertinent positives: abdominal pain, left cp arm pain. Duration: The patient or guardian reports a single episode, that is still ongoing, and unchanged. Historical: - Allergies: 14:25 adhesive tape; db 14:25 HYDROCODONE; db 14:25 hydromorphone; db 14:25 Morphine; db - PMHx: 14:25 Arthritis; Firbomyalgia; High Cholesterol; restless leg syndrome; db - PSHx: 14:25 back; cervicle fusion; Cholecystectomy; Appendectomy; hernia; Total abdominal db hysterectomy; Left hip; pins; - Immunization history:: Adult Immunizations unknown. - Infectious Disease History:: Denies. - Social history:: Smoking status: Patient denies any tobacco usage or history of. ROS: 14:35 Constitutional: Negative for body aches, chills, fever, poor PO intake, cp 14:35 Eyes: Negative for injury, pain, redness, and discharge, cp 14:35 ENT: Negative for drainage from ear(s), ear pain, sore throat, difficulty swallowing, difficulty handling secretions, 14:35 Cardiovascular: Positive for chest pain, Negative for edema, palpitations, 14:35 Respiratory: Negative for cough, shortness of breath, wheezing, 14:35 Abdomen/GI: Positive for abdominal pain, Negative for vomiting, diarrhea, constipation, 14:35 Back: Negative for pain at rest, pain with movement, 14:35 Neuro: Negative for altered mental status, dizziness, headache, syncope, weakness, 14:35 All other systems are negative, Exam: 14:36 ECG was reviewed by the Attending Physician. cp 14:40 Constitutional: The patient appears in no acute distress, alert, awake, cp non-diaphoretic, non-toxic, well developed, well nourished, anxious, tearful 14:40 Head/Face: Normocephalic, atraumatic. cp 14:40 Eyes: Periorbital structures: appear normal, Conjunctiva: normal, no exudate, no injection, Sclera: no appreciated abnormality, Lids and lashes: appear normal, bilaterally, 14:40 ENT: External ear(s): are unremarkable, Nose: is normal, Mouth: Lips: moist, Oral mucosa: pink and intact, moist, Posterior pharynx: is normal, airway is patent, no erythema, no exudate, 14:40 Chest/axilla: Inspection: normal, 14:40 Cardiovascular: Rate: normal, 14:40 Respiratory: the patient does not display signs of respiratory distress, Respirations: normal, no use of accessory muscles, no retractions, labored breathing, is not present, Breath sounds: are clear throughout, no decreased breath sounds, no stridor, no wheezing, 14:40 Abdomen/GI: Inspection: abdomen appears normal, Palpation: soft, in all quadrants, moderate abdominal tenderness, in the epigastric area, 14:40 Back: vertebral tenderness, is not appreciated, 14:40 Neuro: Orientation: to person, place \T\ time. Mentation: is normal, Motor: moves all fours, strength is normal, Vital Signs: 14:23 Weight 74.84 kg; Height 5 ft. 7 in. ; Pain 5/10; db 15:19 BP 153 / 53; Pulse 61; Resp 16; Temp 98; Pulse Ox 100% on R/A; iw 14:23 Body Mass Index 25.84 (74.84 kg, 170.18 cm) db 14:23 Pain Scale: Adult db MDM: 14:25 Patient medically screened. ruben 15:00 Differential diagnosis: abnormal EKG, acute myocardial infarction, anxiety, cp costochondritis, esophagitis, gastroesophageal reflux disease (GERD). 17:00 Data reviewed: vital signs, nurses notes, EKG. 08/08 14:28 Order name: Basic Metabolic Panel [facility] 08/08 14:28 Order name: CBC with Diff [facility] 08/08 14:28 Order name: D-Dimer [facility] 08/08 14:28 Order name: LFT's [facility] 08/08 14:28 Order name: Magnesium [facility] 08/08 14:28 Order name: NT PRO-BNP [facility] 08/08 14:28 Order name: PT-INR [facility] 08/08 14:28 Order name: Troponin HS [facility] 08/08 14:28 Order name: Lipase [facility] 08/08 14:28 Order name: XRAY Chest (1 view) [facility] 08/08 14:27 Order name: EKG - Nurse/Tech; Complete Time: 14:32 db 08/08 14:28 Order name: Cardiac monitoring; Complete Time: 15:21 [facility] 08/08 14:28 Order name: EKG - Nurse/Tech; Complete Time: 15:21 [facility] 08/08 14:28 Order name: IV Saline Lock; Complete Time: 15:21 [facility] 08/08 14:28 Order name: Labs collected and sent; Complete Time: 15:21 [facility] 08/08 14:28 Order name: O2 Per Protocol; Complete Time: 15:21 [facility] 08/08 14:28 Order name: O2 Sat Monitoring; Complete Time: 15:21 [facility] EC:36 Rate is 73 beats/min. Rhythm is regular. FL interval is normal. QRS interval is normal. cp QT interval is normal. Interpreted by me. Reviewed by me. Administered Medications: 14:35 CANCELLED (Physician Discretion): aspirinchewable tablet 162 mg PO once cp 14:35 CANCELLED (Physician Discretion): ns 0.9% 1000 ml IV at 125 ml/hr continuous cp 15:50 Not Given (Patient Refused): aspirinchewable tablet 324 mg PO once; 81 mg tablets x 4 iw 15:50 Not Given (Patient Refused): GI Cocktail without - (maaloxsuspension 30 ml, iw lidocaine mucous membrane liquid 2 % 15 ml) PO once Disposition Summary: 08/09/23 17:06 Eloped Notes: Disposition: after being seen by provider(08/09/23 17:06) iw Reason: (see nurse's notes)(08/09/23 17:06) iw Addendum: 08/12/2023 07:40 Co-signature as Attending Physician, Colt Kahn MD I agree with the assessment and c hoover plan of care. Signatures: Dispatcher [employer] Colt Carbone MD MD cha Williams, Irene, RN RN iw Colt Hawley PA PA cp Poncho Hernandez RN RN as6 Cyr, Shilpa, RN RN db Corrections: (The following items were deleted from the chart) 08/08 14: 14:28 Aspirin PO Chewable Tablet 162 mg PO once ordered. ruben cp 14: 14:28 NS 0.9% IV 1000 ml IV at 125 ml/hr continuous ordered. ruben cp : 14:53 after being seen by provider as6 iw 14:53 wait time as6 iw : 14:53 Stable as6 iw
[2023-08-09 17:45] VITALS: BP 153/53; TEMP 98; O2SAT 100
--- NOTE | 2023-08-13 10:36 | EKG ---
Test Date: 2023-08-09 Test Time: 14:30:53 [place]: AR MEASUREMENT RESULTS: Intervals: Rate: 73 MT: 128 QRSD: 90 QT: 412 QTc: 453 [place]: P: 65 MT: 128 QRS: -20 T: 66 INTERPRETIVE STATEMENTS: Normal sinus rhythm with sinus arrhythmia Normal ECG Compared to ECG 05/17/2023 14:29:44 Sinus bradycardia no longer present Left-axis deviation no longer present Electronically Signed On 08-13-23 10:35:09 CDT by James George
== END 2023-08-09 17:06 | disposition left against medical advice (07) ==
LOC: ER 14:11
DX: R07.9 Chest pain, unspecified (principal); R10.9 Unspecified abdominal pain; M79.602 Pain in left arm; E78.00 Pure hypercholesterolemia, unspecified
CPT/HCPCS: 36415; 71045; 80048; 80076; 83690; 83735; 83880; 84484; 85025; 85379; 85610; 93005; 99284

== ENCOUNTER 2023-12-31 18:21 | Emergency (ER) | payer OTHER ==
[2023-12-31] MEDS ORDERED: ONDANSETRON 4 MG/2 ML VIAL ONE (18:52)
[2023-12-31] MEDS ORDERED: FENTANYL CITR 100 MCG/2 ML ONE ×3 (18:52→23:49)
--- NOTE | 2023-12-31 19:20 | RAD REPORT ---
EXAMINATION: XR LEFT ANKLE CLINICAL INDICATION: Female, 78 years old. PAIN TECHNIQUE: 3 view radiograph of the left ankle were obtained. COMPARISON: No prior exam. FINDINGS: Bimalleolar fracture noted with moderate displacement. The tibiotalar joint appears modera tely subluxed. There is dislocation of the calcaneocuboid joint. The talonavicular joint appears congruent.
[2023-12-31] MEDS ORDERED: NA CHLORIDE 0.9% 1,000 ML ONE (22:47)
[2023-12-31] MEDS ORDERED: ETOMIDATE 20 MG/10 ML VIAL IV ONE (22:49)
--- NOTE | 2024-01-01 00:03 | ER ---
Nurse's Notes [facility] Name: Kim Mera Age: 78 yrs Sex: Female : 1945 Arrival Date: 12/31/2023 Time: 18:21 Bed 20 Private MD: Diagnosis: Displaced bimalleolar fracture of left lower leg, initial encounter for open fracture type I or II Presentation: 12/30 18:34 Chief complaint: EMS states: tripped over carpet and fell, complains of pain to left rs5 ankle. Coronavirus screen: At this time, the client does not indicate any symptoms associated with coronavirus-19. Ebola Screen: No symptoms or risks identified at this time. Initial Sepsis Screen: Does the patient meet any 2 criteria? No. Patient's initial sepsis screen is negative. Does the patient have a suspected source of infection? No. Patient's initial sepsis screen is negative. Risk Assessment: Do you want to hurt yourself or someone else? Patient reports no desire to harm self or others. Onset of symptoms was December 31, 2023. Care prior to arrival: Medication(s) given: fentanyl 100 mcg IV initiated. 20 GA, in the right antecubital area. 18:34 Method Of Arrival: EMS: [facility] rs5 18:34 Acuity: JUAN 3 rs5 Historical: - Allergies: 18:35 adhesive tape; rs5 18:35 HYDROCODONE; rs5 18:35 Morphine; rs5 - PMHx: 18:35 Arthritis; Firbomyalgia; High Cholesterol; restless leg syndrome; rs5 - PSHx: 18:35 Appendectomy; back; cervicle fusion; Cholecystectomy; hernia; Left hip; pins; Total rs5 abdominal hysterectomy; - Immunization history:: Adult Immunizations up to date. - Infectious Disease History:: Denies. - Social history:: Smoking status: Patient/guardian denies using tobacco, but has a distant history of tobacco abuse. Screenin:35 [facility] [place] ED Fall Risk Assessment (Adult) History of falling in the last 3 months, rs5 including since admission Yes- single mechanical fall (1 pt) Confusion or Disorientation No (0 pts) Intoxicated or Sedated No (0 pts) Impaired Gait Yes (1 pt) Mobility Assist Device Used Yes (1 pt) Altered Elimination No (0 pt) Score/Fall Risk Level 3 or more points = High Risk Oriented to surroundings, Maintained a safe environment. Abuse screen: Denies threats or abuse. Nutritional screening: No deficits noted. Tuberculosis screening: No symptoms or risk factors identified. Assessment: 18:35 General: Appears distressed, uncomfortable, Behavior is cooperative, anxious. Pain: rs5 Complains of pain in left ankle Pain currently is 8 out of 10 on a pain scale. Quality of pain is described as aching, Is continuous. Neuro: Level of Consciousness is awake, alert, obeys commands, Oriented to person, place, time, situation. Cardiovascular: Patient's skin is warm and dry. Respiratory: Airway is patent Respiratory effort is even, unlabored, Respiratory pattern is regular, symmetrical. GI: Abdomen is round non-distended, Abd is soft and non tender X 4 quads. : No signs and/or symptoms were reported regarding the genitourinary system. EENT: No signs and/or symptoms were reported regarding the EENT system. Derm: Skin is intact, Skin is pink, warm \T\ dry. Musculoskeletal: Capillary refill < 3 seconds, is brisk, in bilateral fingers. toes. noted to left ankle. 19:08 Reassessment: Patient and/or family updated on plan of care and expected duration. Pain rs5 level reassessed. Patient is alert, oriented x 3, equal unlabored respirations, skin warm/dry/pink. 19:10 General: Appears uncomfortable, Behavior is crying. Pain: Complains of pain in left al5 knee, left daniel, anterior aspect of left ankle and dorsum of left foot Pain currently is 7 out of 10 on a pain scale. Neuro: Level of Consciousness is awake, alert, obeys commands, Oriented to person, place, time, situation. Cardiovascular: Capillary refill < 3 seconds Patient's skin is warm and dry. Respiratory: Airway is patent Respiratory effort is even, unlabored, Respiratory pattern is regular, symmetrical. GI: No signs and/or symptoms were reported involving the gastrointestinal system. : No signs and/or symptoms were reported regarding the genitourinary system. EENT: No signs and/or symptoms were reported regarding the EENT system. Derm: Skin is intact, Skin is pink, warm \T\ dry. normal. Musculoskeletal: Reports pain in left knee, left daniel, anterior aspect of left ankle and dorsum of left foot. Injury Description: fall; tripped on rug attempting to go to the restroom. 19:10 General: provided bathroom necessity care.. al5 20:01 Reassessment: Patient appears in no apparent distress at this time. Patient and/or al5 family updated on plan of care and expected duration. Pain level reassessed. Patient is alert, oriented x 3, equal unlabored respirations, skin warm/dry/pink. educated on moderate sedation procedure and what to expect. reassured the patient that she will not feel any pain during the procedure and that this nurse will be at bedside until patient is back to baseline. 21:30 Reassessment: Patient appears in no apparent distress at this time. Patient and/or al5 family updated on plan of care and expected duration. Pain level reassessed. Patient is alert, oriented x 3, equal unlabored respirations, skin warm/dry/pink. patient still in pain, provider has been notified. 22:54 Reassessment: Patient appears in no apparent distress at this time. No changes from al5 previously documented assessment. Patient and/or family updated on plan of care and expected duration. Pain level reassessed. Patient is alert, oriented x 3, equal unlabored respirations, skin warm/dry/pink. 12/31 00:00 Reassessment: Patient appears in no apparent distress at this time. No changes from al5 previously documented assessment. Patient and/or family updated on plan of care and expected duration. Pain level reassessed. Patient is alert, oriented x 3, equal unlabored respirations, skin warm/dry/pink. 01:10 Reassessment: Patient appears in no apparent distress at this time. No changes from al5 previously documented assessment. Patient and/or family updated on plan of care and expected duration. Pain level reassessed. Patient is alert, oriented x 3, equal unlabored respirations, skin warm/dry/pink. Patient denies pain at this time. Vital Signs: 12/30 18:34 BP 158 / 61; Pulse 80; Resp 17; Temp 98(O); Pulse Ox 97% on R/A; rs5 19:00 BP 158 / 52; Pulse 61; Resp 18; Pulse Ox 100% on R/A; al5 20:00 BP 129 / 67; Pulse 57; Resp 17; Pulse Ox 100% on R/A; al5 20:46 BP 151 / 60; Pulse 61; Resp 17; Pulse Ox 97% on R/A; al5 21:25 Weight 74.84 kg; sb4 21:30 BP 137 / 60; Pulse 54; Resp 18; Pulse Ox 98% on R/A; Weight 74.84 kg; al5 22:15 BP 152 / 61; Pulse 59; Resp 18; Pulse Ox 99% on R/A; al5 23:03 BP 141 / 83; Pulse 61; Resp 18; Temp 98.2; Pulse Ox 100% on R/A; al5 23:15 BP 155 / 64; Pulse 67; Resp 17; Pulse Ox 100% on R/A; al5 23:17 BP 159 / 94; Pulse 61; Resp 16; Pulse Ox 100% on 2 lpm NC; al5 23:19 BP 180 / 95; Pulse 63; Resp 14; Pulse Ox 100% on 2 lpm NC; al5 23:21 BP 151 / 66; Pulse 59; Resp 13; Pulse Ox 100% on 2 lpm NC; al5 23:23 BP 144 / 59; Pulse 58; Resp 16; Pulse Ox 100% on 2 lpm NC; al5 23:25 BP 153 / 56; Pulse 57; Resp 16; Pulse Ox 100% on 2 lpm NC; al5 23:27 BP 150 / 66; Pulse 58; Resp 15; Pulse Ox 100% on R/A; al5 23:29 BP 153 / 62; Pulse 57; Resp 15; Pulse Ox 100% on R/A; al5 12/31 00:00 BP 122 / 46; Pulse 53; Resp 17; Pulse Ox 100% on R/A; al5 00:30 BP 144 / 56; Pulse 52; Resp 15; Pulse Ox 100% on R/A; al5 01:00 BP 115 / 48; Pulse 53; Resp 17; Pulse Ox 100% on R/A; al5 01:30 BP 128 / 55; Pulse 55; Resp 16; Pulse Ox 100% on R/A; al5 ED Course: 12/30 18:33 Patient arrived in ED. rs5 18:35 Triage completed. rs5 18:35 Patient has correct armband on for positive identification. Placed in gown. Bed in low rs5 position. Call light in reach. Side rails up X2. Provided Education on: Blood Transfusion. 18:35 No provider procedures requiring assistance completed. rs5 18:36 [facility] sb4 18:36 Jamaal Sykes MD is Attending Physician. sb4 19:10 Ankle Left 3 View XRAY In Process Unspecified. EDMS 19:32 Jami Horn, RN is Primary Nurse. al5 23:13 Consent for conscious sedation explained by staff, explained by physician, signed by al5 patient son with patient permission.. 23:15 Provided Education on: Conscious Sedation. al5 23:27 Assisted provider with: moderate sedation; reduction of L ankle and splint with al5 orthoglass and hawk wrapping. 23:27 Hawk wrap to left ankle Orthoglass splint: stirrup splint applied on left leg. Applied al5 post reduction by a physician. 23:36 Attending Physician role handed off by Jamaal Sykes MD rt 23:36 Alirio Gore MD is Attending Physician. rt 23:41 Ankle Left 3 View XRAY In Process Unspecified. EDMS 12/31 00:14 Initiated transfer with Milagro at [facility]. rv1 00:21 Pt accepted without conference by Dr. Preston to [facility] ER. rv1 01:59 Patient transferred, IV remains in place. al5 Administered Medications: 12/30 18:58 Drug: fentaNYL (PF) IVP 50 mcg IVP once Route: IVP; Site: right antecubital; rs5 20:10 Follow up: Response: No adverse reaction; Pain is decreased al5 18:58 Drug: Ondansetron IVP 4 mg IVP once; over 2 minutes Route: IVP; Site: right antecubital;rs5 21:19 Follow up: Response: No adverse reaction; Nausea is decreased al5 21:19 Drug: fentaNYL (PF) IVP 50 mcg IVP once Route: IVP; Site: right antecubital; al5 23:33 Follow up: Response: No adverse reaction; Pain is unchanged, physician notified al5 23:15 Drug: Etomidate IVP 20 mg IVP once Route: IVP; Site: right antecubital; al5 23:59 Follow up: Response: No adverse reaction al5 23:15 Drug: NS 0.9% IV 1000 ml IV at 1000 ml once; to be given as a bolus over 60 minutes al5 Route: IV; Rate: 1000 ml; Site: right antecubital; 12/31 01:30 Follow up: Response: No adverse reaction; IV Status: Completed infusion; IV Intake: al5 1000ml 00:00 Drug: fentaNYL (PF) IVP 75 mcg IVP once Route: IVP; Site: right antecubital; al5 00:43 Follow up: Response: No adverse reaction; Pain is unchanged, physician notified al5 00:43 Drug: ceFAZolin IVPB 1 grams 50 ml IVPB once over 30 mins Volume: 50 ml; Route: IVPB; al5 Infused Over: 30 mins; Site: right antecubital; 01:30 Follow up: Response: No adverse reaction; IV Status: Completed infusion; IV Intake: [id number] 00:43 Drug: HYDROmorphone IVP 0.5 mg IVP once Route: IVP; Site: right antecubital; al5 01:10 Follow up: Response: No adverse reaction; Pain is decreased al5 Medication: 12/30 19:08 VIS not applicable for this client. rs5 Intake: 12/31 01:30 IV: 1000ml; Total: 1000ml. al5 01:30 IV: 50ml; Total: 1050ml. al5 Outcome: 00:03 ER care complete, transfer ordered by . sb4 01:59 Transferred by ground EMS to [facility], Transfer form completed. al5 01:59 Condition: stable 01:59 Instructed on the need for transfer, 01:59 Patient left the ED. al5 Signatures: Dispatcher [employer] EDMS Lou Hatch PA-C PA-C sb4 Alirio Goer MD MD rt Brunilda Lee rv1 Naveen Meehan RN RN rs5 Jami Horn RN RN al5 Corrections: (The following items were deleted from the chart) 12/30 22:06 19:10 Neuro: Level of Consciousness is awake, alert, obeys commands, Oriented to al5 person, place, time, situation, al5 23:34 23:33 Etomidate IVP 10 mg IVP in right antecubital al5 al5 12/31 00:44 12/30 18:35 Allergies: hydromorphone; rs5 al5
--- NOTE | 2024-01-01 00:03 | EDPHYS ---
Physician Documentation [facility] Name: Kim Mera Age: 78 yrs Sex: Female : 1945 Arrival Date: 12/31/2023 Time: 18:21 Bed 20 Private MD: ED Physician Alirio Gore HPI: 12/31 00:09 This 78 yrs old Female presents to ER via EMS with complaints of Fall Injury. sb4 00:09 Patient states that she tripped and fell and injured her left ankle this afternoon. She sb4 did not hit her head. No loss of consciousness. Is only complaining of pain in her left ankle. Deformity noted by EMS and was stabilized prior to arrival. Historical: - Allergies: 12/30 18:35 adhesive tape; rs5 18:35 HYDROCODONE; rs5 18:35 Morphine; rs5 - PMHx: 18:35 Arthritis; Firbomyalgia; High Cholesterol; restless leg syndrome; rs5 - PSHx: 18:35 Appendectomy; back; cervicle fusion; Cholecystectomy; hernia; Left hip; pins; Total rs5 abdominal hysterectomy; - Immunization history:: Adult Immunizations up to date. - Infectious Disease History:: Denies. - Social history:: Smoking status: Patient/guardian denies using tobacco, but has a distant history of tobacco abuse. ROS: 12/31 00:09 Constitutional: Negative for fever, chills, and weight loss, sb4 MS/extremity: Positive for injury or acute deformity, decreased range of motion, deformity, pain, swelling, tenderness, of the left lateral ankle, left medial ankle and anterior aspect of left ankle, All other systems are negative, Exam: 00:09 Head/Face: Normocephalic, atraumatic. Eyes: Extra-ocular motions intact. Periorbital sb4 areas with no swelling, redness, or edema. ENT: Mucous membranes moist. 00:09 Constitutional: The patient appears alert, awake, in obvious pain, uncomfortable, 00:09 Musculoskeletal/extremity: Joints: the left ankle displays deformity, limited range of motion, pain at rest, painful range of motion, swelling, tenderness, 00:09 Skin: puncture wound left medial ankle concerning for open fracture. Vital Signs: 12/30 18:34 BP 158 / 61; Pulse 80; Resp 17; Temp 98(O); Pulse Ox 97% on R/A; rs5 19:00 BP 158 / 52; Pulse 61; Resp 18; Pulse Ox 100% on R/A; al5 20:00 BP 129 / 67; Pulse 57; Resp 17; Pulse Ox 100% on R/A; al5 20:46 BP 151 / 60; Pulse 61; Resp 17; Pulse Ox 97% on R/A; al5 21:25 Weight 74.84 kg; sb4 21:30 BP 137 / 60; Pulse 54; Resp 18; Pulse Ox 98% on R/A; Weight 74.84 kg; al5 22:15 BP 152 / 61; Pulse 59; Resp 18; Pulse Ox 99% on R/A; al5 23:03 BP 141 / 83; Pulse 61; Resp 18; Temp 98.2; Pulse Ox 100% on R/A; al5 23:15 BP 155 / 64; Pulse 67; Resp 17; Pulse Ox 100% on R/A; al5 23:17 BP 159 / 94; Pulse 61; Resp 16; Pulse Ox 100% on 2 lpm NC; al5 23:19 BP 180 / 95; Pulse 63; Resp 14; Pulse Ox 100% on 2 lpm NC; al5 23:21 BP 151 / 66; Pulse 59; Resp 13; Pulse Ox 100% on 2 lpm NC; al5 23:23 BP 144 / 59; Pulse 58; Resp 16; Pulse Ox 100% on 2 lpm NC; al5 23:25 BP 153 / 56; Pulse 57; Resp 16; Pulse Ox 100% on 2 lpm NC; al5 23:27 BP 150 / 66; Pulse 58; Resp 15; Pulse Ox 100% on R/A; al5 23:29 BP 153 / 62; Pulse 57; Resp 15; Pulse Ox 100% on R/A; al5 12/31 00:00 BP 122 / 46; Pulse 53; Resp 17; Pulse Ox 100% on R/A; al5 00:30 BP 144 / 56; Pulse 52; Resp 15; Pulse Ox 100% on R/A; al5 01:00 BP 115 / 48; Pulse 53; Resp 17; Pulse Ox 100% on R/A; al5 01:30 BP 128 / 55; Pulse 55; Resp 16; Pulse Ox 100% on R/A; al5 Procedures: 00:11 Reduction: of the left ankle, using traction, Immobilized with Splint. Patient sb4 tolerated well. Post reduction film - Alignment unchanged. Procedural sedation: Pre-procedure assessment: the patient has been NPO an unknown amount of time prior to arrival, Airway assessment: able to maintain airway, can open mouth without difficulty, Monitoring during procedure: hospital monitor, continuous pulse oximetry, nurse at bedside at all times, Medications employed: Etomidate, 10 mg(s), Post-procedure assessment: Respiratory status: even and unlabored, sedation began at 2315 and ended at 2321. MDM: 12/30 18:36 Medical Screening Exam initiated sb4 12/31 00:12 Data reviewed: vital signs, nurses notes, EMS record, lab test result(s), radiologic sb4 studies, I have discussed the patient's presentation/case with the attending Emergency Department Physician;. ED course: Postreduction film not much improved. There is tenting in the left ankle with a puncture wound that raise question of open fracture. Additionally, I do not feel that patient will be safe going home on crutches given her advanced age. we do not have any orthopedics on-call. Will transfer for orthopedic surgery. 12/31 00:06 Order name: Basic Metabolic Panel; Complete Time: 01:28 sb4 12/31 00:06 Order name: CBC with Diff; Complete Time: 01:26 sb4 12/30 18:39 Order name: Ankle Left 3 View XRAY; Complete Time: 19:21 sb4 12/30 23:20 Order name: Ankle Left 3 View XRAY sb4 12/30 19:22 Order name: Misc. Order: prep for conscious sedation; Complete Time: 22:35 sb4 12/31 00:06 Order name: Labs collected and sent; Complete Time: 01:03 sb4 Administered Medications: 12/30 18:58 Drug: fentaNYL (PF) IVP 50 mcg IVP once Route: IVP; Site: right antecubital; rs5 20:10 Follow up: Response: No adverse reaction; Pain is decreased al5 18:58 Drug: Ondansetron IVP 4 mg IVP once; over 2 minutes Route: IVP; Site: right antecubital;rs5 21:19 Follow up: Response: No adverse reaction; Nausea is decreased al5 21:19 Drug: fentaNYL (PF) IVP 50 mcg IVP once Route: IVP; Site: right antecubital; al5 23:33 Follow up: Response: No adverse reaction; Pain is unchanged, physician notified al5 23:15 Drug: Etomidate IVP 20 mg IVP once Route: IVP; Site: right antecubital; al5 23:59 Follow up: Response: No adverse reaction al5 23:15 Drug: NS 0.9% IV 1000 ml IV at 1000 ml once; to be given as a bolus over 60 minutes al5 Route: IV; Rate: 1000 ml; Site: right antecubital; 12/31 01:30 Follow up: Response: No adverse reaction; IV Status: Completed infusion; IV Intake: al5 1000ml 00:00 Drug: fentaNYL (PF) IVP 75 mcg IVP once Route: IVP; Site: right antecubital; al5 00:43 Follow up: Response: No adverse reaction; Pain is unchanged, physician notified al5 00:43 Drug: ceFAZolin IVPB 1 grams 50 ml IVPB once over 30 mins Volume: 50 ml; Route: IVPB; al5 Infused Over: 30 mins; Site: right antecubital; 01:30 Follow up: Response: No adverse reaction; IV Status: Completed infusion; IV Intake: [id number] 00:43 Drug: HYDROmorphone IVP 0.5 mg IVP once Route: IVP; Site: right antecubital; al5 01:10 Follow up: Response: No adverse reaction; Pain is decreased al5 Disposition: 03:22 Co-signature as Attending Physician, Alirio Gore MD I reviewed the patient's care rt provided by Advanced Practice Provider \T\ agree w/ the diagnosis \T\ care plan. I personally saw the pt \T\ performed a substantive portion of the visit, incldng all aspects of the (History/Exam/Medical Decision Making). I performed the sedation, reduction with the assistance of physicians physician assistant surgery, there is a small area tenting of the skin, erythema, possible puncture wound. Will transfer patient for higher level of care.. Disposition Summary: 01/01/24 00:03 Transfer Ordered Notes: Transfer [facility]: [facility] sb4 Reason: Higher level of care sb4 Condition: Fair sb4 Problem: new sb4 Symptoms: are unchanged sb4 Accepting Physician: Dr. Dakota Preston(01/01/24 01:59) al5 Diagnosis - Displaced bimalleolar fracture of left lower leg, initial encounter for open sb4 fracture type I or II Discharge Instructions: - Discharge Summary Sheet sb4 - Displaced Bimalleolar Ankle Fracture Treated With ORIF sb4 Forms: - Medication Reconciliation Form sb4 - SBAR form sb4 Signatures: Dispatcher [employer] EDNV Lou Hatch PA-C PA-C sb4 Alirio Gore MD MD rt Naveen Meehan RN RN rs5 Jami Horn RN RN al5 Corrections: (The following items were deleted from the chart) 00:06 00:06 BASIC METABOLIC PANEL+C.LAB.BRZ ordered. EDNV EDNV 00:06 00:06 CBC+H.LAB.BRZ ordered. [facility] EDNV 00:16 00:09 Skin: sb4 sb4 00:16 00:11 Procedural sedation: Pre-procedure assessment: the patient has been NPO an sb4 unknown amount of time prior to arrival, Airway assessment: able to maintain airway, can open mouth without difficulty, Monitoring during procedure: hospital monitor, continuous pulse oximetry, nurse at bedside at all times, Medications employed: Etomidate, 10 mg(s), Post-procedure assessment: Respiratory status: even and unlabored, sb4 00:27 00:03 ortho sb4 sb4 00:28 00:27 Dr. Morgan sb4 sb4 00:44 12/30 18:35 Allergies: hydromorphone; rs5 al5 12/31 01:59 00:28 Dr. Dakota Preston sb4 al5
[2024-01-01] MEDS ORDERED: NA CHLORIDE 0.9% 50 ML ONE (00:27)
[2024-01-01] MEDS ORDERED: CEFAZOLIN SODIUM 1 GM/VIAL ONE (00:27)
[2024-01-01] MEDS ORDERED: HYDROMORPHONE HCL 0.5 MG/0.5 ML INJ ONE (00:27)
[2024-01-01 01:20] LABS: Absolute Monocytes 0.6 K/uL (0.1-1.3); Basophils % 0.5 % (0-1.3); Eosinophils % 0.1 % (0-4.4); Hematocrit 40.1 % (36.0-45.0); Hemoglobin 13.6 g/dL (12.0-15.0); Lymphocytes % 12.5 % (15.3-44.8); MCH 30.1 pg (27.0-35.0); MCHC 33.9 g/dL (32.0-36.0); MCV 88.9 fL (80-100); MPV 8.1 fL (7.6-11.3); Monocytes % 8.3 % (3.3-12.3); Neutrophils % 78.6 % (41.7-73.7); Nucleated Red Blood Cells % 0.2 % (0-0); Platelets 151 thou/uL (152-406); RBC Red Blood Cell Count 4.52 M/uL (3.86-4.86); Red Cell Distribution Width 13.2 % (12.1-15.2)
[2024-01-01 01:28] LABS: Anion Gap 6.2 mEq/L (5.0-15.0); Potassium 4.2 mEq/L (3.5-5.1)
--- NOTE | 2024-01-01 05:32 | RAD REPORT ---
EXAM DESCRIPTION: XR ANKLE 3 OR MORE VIEWS LEFT 12/31/2023 11:52 PM NURSE PRN CLINICAL HISTORY: 78 years, Female, Post reduction. COMPARISON: XR Ankle left 01/01/2024 07:18 PM. FINDINGS: 3 X-ray views of the left ankle (frontal, lateral and oblique projections) were performed. The presen ce of fiberglass cast. Detail. Bone: There is a fracture involving the medial malleolus as well as lateral malleolus. Remains the pr esence of lateral subluxation of the tibiotalar joint. There is diastases of the lateral malleolus and medial malleolus. Soft tissues: Fiberglas cast obscures detail.. Joints: There is no significant joint effusion. Others: There are no gross intraosseous lesions. IMPRESSION: Casted left ankle fracture with lateral subluxation of the tibiotalar joint. Electronically signed by: Evelio He MD 01/01/2024 12:18 AM NURSE PRN Due to temporary technical issues with the PACS/[employer] reporting system, reports are being eliseo d by the in-house radiologist without review as a courtesy to ensure prompt reporting the interpreting radiologist is fully responsible for the content of the report. Transcribed Date/Time: 01/01/2024 5:32 AM
[2024-01-01 08:10] VITALS: TEMP 98.2; O2SAT 100
[2024-01-01 08:25] VITALS: BP 128/55
== END 2024-01-01 01:59 | disposition short-term general hospital (02) ==
LOC: ER 18:21
PROC: 0QSHXZZ Reposition Left Tibia, External Approach (ICD-10-PCS; principal; 2024-01-01)
PROC: 0PRJ0JZ Replacement of Left Radius with Synthetic Substitute, Open Approach (ICD-10-PCS; 2024-01-01)
DX: S82.842B Displaced bimalleolar fracture of left lower leg, initial encounter for open fracture type I or II (principal); G25.81 Restless legs syndrome; E78.00 Pure hypercholesterolemia, unspecified; M79.7 Fibromyalgia; W01.0XXA Fall on same level from slipping, tripping and stumbling without subsequent striking against object, initial encounter; Y93.9 Activity, unspecified; Y92.9 Unspecified place or not applicable; Z88.5 Allergy status to narcotic agent
CPT/HCPCS: 27810; 85025; 80048; 36415; 73610 ×2; J3010 ×3; J1171; J2405; J7030; J0690; 96361; 96365; 96375; 99285

== ENCOUNTER 2024-03-19 15:52 | Inpatient (IN) | payer OTHER ==
[2024-03-19] MEDS ORDERED: NA CHLORIDE 0.9% 1,000 ML ONE ×2 (16:17→18:26)
[2024-03-19 16:37] LABS: Absolute Lymphocytes (CBC) 0.8 K/uL (0.7-4.9); Absolute Monocytes 0.5 K/uL (0.1-1.3); Absolute Neutrophil 4.5 K/uL (1.8-8.0); Basophils % 0.4 % (0-1.3); Eosinophils % 0.1 % (0-4.4); Hemoglobin 14.2 g/dL (12.0-15.0); Lymphocytes % 13.3 % (15.3-44.8); MCH 30.3 pg (27.0-35.0); MCHC 34.6 g/dL (32.0-36.0); MCV 87.7 fL (80-100); Monocytes % 8.8 % (3.3-12.3); Neutrophils % 77.4 % (41.7-73.7); Platelets 210 thou/uL (152-406); RBC Red Blood Cell Count 4.68 M/uL (3.86-4.86); Red Cell Distribution Width 12.7 % (12.1-15.2)
[2024-03-19 16:52] LABS: Albumin 3.4 g/dL (3.4-5.0); Albumin/Globulin Ratio 1.2 (1.1-1.8); Anion Gap 8.5 mEq/L (5.0-15.0); Bilirubin Total 0.6 mg/dL (0.2-1.0); Globulin 2.9 g/dL (2.3-3.5); Potassium 4.5 mEq/L (3.5-5.1); Protein, Total 6.3 g/dL (6.4-8.2)
[2024-03-19 17:38] LABS: Specific Gravity 1.006 (1.005-1.030); Sqamous Epithelial None Seen /HPF (None Seen); Urine Bacteria None Seen /HPF (<20); Urine Bilirubin NEGATIVE (Negative); Urine Blood Negative (Negative); Urine Clarity Clear (Clear); Urine Color Colorless (Yellow); Urine Culture Reflex Order NOT NEEDED; Urine Glucose NEGATIVE (Negative); Urine Ketones NEGATIVE (Negative); Urine Microscopic Reflex YN ORDER UMIC; Urine Nitrite NEGATIVE (Negative); Urine Protein NEGATIVE (Negative); Urine RBC <5 /HPF (None Seen); Urine Urobilinogen Normal (Normal); Urine WBC <5 /HPF (<5)
--- NOTE | 2024-03-19 18:17 | RAD REPORT ---
EXAMINATION: CT Abdomen Pelvis W Contrast CLINICAL INDICATION: Female, 79 years old. abd cramping, diarrhea TECHNIQUE: CT abdomen and pelvis was performed, after the administration of IV contrast, as per [facility] protocol. Axial, sagittal and coronal reconstructions were obtained. One or more of the following dose reduction techniques were used: Automated exposure control, adjustment of the mA and k V according to patient size, and iterative reconstruction. Unless otherwise specified, incidental findings do not require dedicated imaging follow-up. COMPARISON: No prior exam. FINDINGS: LOWER CHEST: The visualized lung bases are clear. LIVER: Normal in size and contour. No focal lesion. BILIARY SYSTEM: Status post cholecystectomy. SPLEEN: Normal size. No focal lesion. PANCREAS: No mass, ductal dilation, or perry-pancreatic fluid. ADRENALS: Normal; no mass. KIDNEYS: Normal size and contour. No hydronephrosis. Small right lower pole cortical cyst is stable. URINARY BLADDER: Unremarkable. GASTROINTESTINAL TRACT: No evidence of free air, significant intra-abdominal free fluid, bowel obstru ction or abscess. APPENDIX: Normal appendix. LYMPH NODES: No lymphadenopathy. MUSCULOSKELETAL: No acute or suspicious osseous abnormality. Sequelae of L4-5 fusion with interbody s pacer and prior T12 vertebral body of dictation. Mild superior endplate compression deformity at L2 is also stable. ADDITIONAL FINDINGS: Bilateral inguinal hernias with fat. IMPRESSION: No acute or concerning abnormalities seen in the abdomen or pelvis. Chronic findings as above.
--- NOTE | 2024-03-19 19:09 | ER ---
Nurse's Notes [facility] Name: Kim Mera Age: 79 yrs Sex: Female : 1945 Arrival Date: 03/19/2024 Time: 15:52 Bed 5 Private MD: Diagnosis: Dehydration;Diarrhea, unspecified;Muscle weakness (generalized) Presentation: 03/19 16:05 Chief complaint: Patient states: she takes laxatives to stay regular but has had me1 diarrhea recently and started feeling dizzy about 1 pm today. Lost her balance but caught herself and did not fall. Denies injury. Coronavirus screen: Vaccine status: Patient reports being unvaccinated. Ebola Screen: No symptoms or risks identified at this time. Initial Sepsis Screen: Does the patient meet any 2 criteria? No. Patient's initial sepsis screen is negative. Does the patient have a suspected source of infection? No. Patient's initial sepsis screen is negative. Risk Assessment: Do you want to hurt yourself or someone else? Patient reports no desire to harm self or others. Onset of symptoms was March 19, 2024 at 13:00. 16:05 Method Of Arrival: Wheelchair me1 16:05 Acuity: JUAN 3 me1 Triage Assessment: 16:37 General: Appears in no apparent distress. uncomfortable, Behavior is calm, cooperative, ko1 appropriate for age. Pain: Complains of pain in generalized. Historical: - Allergies: 16:07 adhesive tape; me1 16:07 HYDROCODONE; me1 16:07 Morphine; me1 - PMHx: 16:07 Arthritis; Firbomyalgia; High Cholesterol; restless leg syndrome; me1 - PSHx: 16:07 Appendectomy; back; cervicle fusion; Cholecystectomy; hernia; Left hip; pins; Total me1 abdominal hysterectomy; left foot fracure repair (Total abdominal hysterectomy); - Immunization history:: Adult Immunizations up to date. - Infectious Disease History:: Denies. - Social history:: Smoking status: Patient/guardian denies using tobacco, but has a distant history of tobacco abuse. - Family history:: not pertinent. - Hospitalizations: : No recent hospitalization is reported. Screenin:38 [facility] ED Fall Risk Assessment (Adult) History of falling in the last 3 months, ko1 including since admission No falls in past 3 months (0 pts) Confusion or Disorientation Yes (5 pts) Intoxicated or Sedated No (0 pts) Impaired Gait No (0 pts) Mobility Assist Device Used No (0 pt) Altered Elimination No (0 pt) Score/Fall Risk Level 0 - 2 = Low Risk Oriented to surroundings, Maintained a safe environment, Educated pt \T\ family on fall prevention, incl call for assistance when getting out of bed, Assessed \T\ reinforced patient's understanding of fall precautions, Hourly rounding (assess needs \T\ fall precautionary measures) done. Abuse screen: Denies threats or abuse. Denies injuries from another. Nutritional screening: No deficits noted. Tuberculosis screening: No symptoms or risk factors identified. Assessment: 16:38 Neuro: Reports dizziness. Cardiovascular: No deficits noted. Respiratory: No deficits ko1 noted. GI: No deficits noted. No signs and/or symptoms were reported involving the gastrointestinal system. : Reports urinary frequency. EENT: No deficits noted. No signs and/or symptoms were reported regarding the EENT system. Derm: No deficits noted. No signs and/or symptoms reported regarding the dermatologic system. Musculoskeletal: No deficits noted. No signs and/or symptoms reported regarding the musculoskeletal system. 19:05 Reassessment: Patient and/or family updated on plan of care and expected duration. Pain br2 level reassessed. Patient is alert, oriented x 3, equal unlabored respirations, skin warm/dry/pink. Pain: Complains of pain in groin. EENT: Reports FEELS LIKE SHE NEEDS TO URINATE BUT ISN'T ABLE TO. C/O PAIN TO LOWER PELVIC AREA. ORDER FOR MENON. 20:52 Reassessment: Patient appears in no apparent distress at this time. No changes from vc1 previously documented assessment. Patient and/or family updated on plan of care and expected duration. Pain level reassessed. Patient is alert, oriented x 3, equal unlabored respirations, skin warm/dry/pink. Vital Signs: 16:05 BP 140 / 57; Pulse 60; Resp 17; Temp 98.3; Pulse Ox 100% ; Weight 68.04 kg; Height 5 me1 ft. 8 in. ; Pain 0/10; 18:50 BP 159 / 82; Pulse 67; Resp 15; Pulse Ox 98% ; ko1 19:27 BP 146 / 61; Pulse 60; Resp 11; Pulse Ox 100% ; vc1 20:52 BP 121 / 47; Pulse 56; Resp 12; Pulse Ox 100% ; vc1 16:05 Body Mass Index 22.81 (68.04 kg, 172.72 cm) me1 16:05 Pain Scale: Adult [facility] [place] ED Course: 15:55 Patient arrived in ED. im 15:57 Dennis Contreras MD is Attending Physician. rn 16:07 Triage completed. me1 16:07 Arm band placed on Patient placed in an exam room. me1 16:29 Gabriella Morris, RN is Primary Nurse. ko1 16:29 CBC with Diff Sent. ko1 16:29 CMP Sent. ko1 16:29 Lipase Sent. ko1 16:38 Patient has correct armband on for positive identification. Allergy band placed. Bed in ko1 low position. Call light in reach. Side rails up X 1. Provided Education on: labs. meds. Pulse ox on. NIBP on. Door closed. Noise minimized. Lights dimmed. Warm blanket given. Pillow given. 16:38 No provider procedures requiring assistance completed. Initial lab(s) drawn, by ok, ko1 sent to lab. Inserted saline lock: 20 gauge in right antecubital area, using aseptic technique. Blood collected. Flushed with 10 mL NS. 17:34 CT Abd/Pelvis - IV Contrast Only In Process Unspecified. EDMS 17:35 Patient requests rest room assistance. ko1 17:35 Assisted to bathroom. ko1 19:08 Talha Duke MD is Hospitalizing Provider. rn 19:25 [place] cath inserted, using sterile technique, 16 Fr., by ok, balloon inflated, to br2 gravity drainage, other 800CC OUTPUT. 21:37 Patient admitted, IV remains in place. br2 Administered Medications: 16:29 Drug: NS 0.9% IV 1000 ml IV at 1 bolus Per protocol; to be given as a bolus over 60 ko1 minutes Route: IV; Rate: 1 bolus; Site: right antecubital; 17:34 Follow up: Response: No adverse reaction; IV Status: Completed infusion; IV Intake: ko1 1000ml 18:29 Drug: NS 0.9% IV 1000 ml IV at 1000 ml once; to be given as a bolus over 60 minutes ko1 Route: IV; Rate: 1000 ml; Site: right antecubital; 20:53 Follow up: IV Status: Completed infusion; IV Intake: 1000ml vc1 Medication: 16:38 VIS not applicable for this client. ko1 Intake: 17:34 IV: 1000ml; Total: 1000ml. ko1 20:53 IV: 1000ml; Total: 2000ml. vc1 Outcome: 19:09 Decision to Hospitalize by Provider. rn 21:37 Admitted to Med/surg accompanied by tech, via stretcher, room 230, br2 21:37 Condition: stable 21:37 Instructed on the need for admit, Demonstrated understanding of instructions, 21:38 Patient left the ED. br2 Signatures: Dispatcher [employer] EDDennis Gatica MD MD rn Calcote, Vanessa, RN RN vc1 Gabriella Morris RN RN ko1 Ginny Botello Michelle RN RN me1 Chanelle Pennington RN RN br2
--- NOTE | 2024-03-19 19:10 | EDPHYS ---
Physician Documentation [facility] Name: Kim Mera Age: 79 yrs Sex: Female : 1945 Arrival Date: 03/19/2024 Time: 15:52 Bed 5 Private MD: ED Physician Dennis Contreras HPI: 03/19 16:22 This 79 yrs old Female presents to ER via Wheelchair with complaints of Dizziness, rn dehydration. 16:22 The patient presents with dizziness, generalized weakness, lightheadedness. Onset: The rn symptoms/episode began/occurred at an unknown time. Modifying factors: The symptoms are alleviated by nothing, the symptoms are aggravated by movement of head, standing up, changing position. Severity of symptoms: At their worst the symptoms were moderate in the emergency department the symptoms are unchanged. The patient has not experienced similar symptoms in the past. Caregiver reports diarrhea for several days, has problem with chronic constipation so takes laxatives frequently. Nonbloody. No fever or vomiting. Today got lightheaded and dizzy upon changing position. No trauma.. Historical: - Allergies: 16:07 adhesive tape; me1 16:07 HYDROCODONE; me1 16:07 Morphine; me1 - PMHx: 16:07 Arthritis; Firbomyalgia; High Cholesterol; restless leg syndrome; me1 - PSHx: 16:07 Appendectomy; back; cervicle fusion; Cholecystectomy; hernia; Left hip; pins; Total me1 abdominal hysterectomy; left foot fracure repair (Total abdominal hysterectomy); - Immunization history:: Adult Immunizations up to date. - Infectious Disease History:: Denies. - Social history:: Smoking status: Patient/guardian denies using tobacco, but has a distant history of tobacco abuse. - Family history:: not pertinent. - Hospitalizations: : No recent hospitalization is reported. ROS: 16:22 Constitutional: Negative for fever, chills, and weight loss, Cardiovascular: Negative rn for chest pain, palpitations, and edema, Respiratory: Negative for shortness of breath, cough, wheezing, and pleuritic chest pain, Abdomen/GI: Negative for abdominal pain, positive for diarrhea that is nonbloody MS/Extremity: Negative for injury and deformity, Neuro: Positive for generalized weakness but no syncope Exam: 16:22 Constitutional: This is a well developed, well nourished patient who is awake, alert, rn and in no acute distress. Head/Face: Normocephalic, atraumatic. ENT: Dry mucous membranes Cardiovascular: Regular rate and rhythm. No pulse deficits. Respiratory: No increased work of breathing, no retractions or nasal flaring. Abdomen/GI: Soft, non-tender MS/ Extremity: Pulses equal, no cyanosis. Neuro: Awake and alert, GCS 15, oriented to person, place, time, and situation. Cranial nerves II-XII grossly intact. Motor strength 4/5 in all extremities. Sensory grossly intact. Vital Signs: 16:05 BP 140 / 57; Pulse 60; Resp 17; Temp 98.3; Pulse Ox 100% ; Weight 68.04 kg; Height 5 me1 ft. 8 in. ; Pain 0/10; 18:50 BP 159 / 82; Pulse 67; Resp 15; Pulse Ox 98% ; ko1 19:27 BP 146 / 61; Pulse 60; Resp 11; Pulse Ox 100% ; vc1 20:52 BP 121 / 47; Pulse 56; Resp 12; Pulse Ox 100% ; vc1 16:05 Body Mass Index 22.81 (68.04 kg, 172.72 cm) me1 16:05 Pain Scale: Adult me1 MDM: 15:57 Medical Screening Exam initiated rn 19:06 Differential diagnosis: hypovolemia, idiopathic dizziness, dehydration, colitis, rn enteritis, adverse effect of laxatives. Data reviewed: vital signs, nurses notes, lab test result(s), radiologic studies, CT scan, and as a result, I will admit patient. Consideration of Admission/Observation Patient was admitted/placed on observation. Escalation of care including admission/observation considered. Counseling: I had a detailed discussion with the patient and/or guardian regarding the historical points, exam findings, and any diagnostic results supporting the discharge/admit diagnosis, lab results, radiology results, the need for further work-up and treatment in the hospital. ED course: Patient given 2 L of fluid, still feels weak and dehydrated, minimal urine output. Patient unsteady getting up and still feels lightheaded. Will observe in hospital. CT abdomen negative for acute findings.. 03/19 16:08 Order name: CBC with Diff; Complete Time: 16:57 rn 03/19 16:08 Order name: CMP; Complete Time: 16:57 rn 03/19 16:08 Order name: Lipase; Complete Time: 16:57 rn 03/19 16:08 Order name: Urinalysis w/ reflexes; Complete Time: 17:46 rn 03/19 20:41 Order name: Urinalysis w/ reflexes EDMS 03/19 20:41 Order name: CBC with Automated Diff EDMS 03/19 20:41 Order name: CBC with Automated Diff EDMS 03/19 20:41 Order name: Comprehensive Metabolic Panel EDMS 03/19 20:41 Order name: Comprehensive Metabolic Panel EDMS 03/19 20:41 Order name: Magnesium EDMS 03/19 20:41 Order name: Magnesium EDMS 03/19 20:41 Order name: Phosphorus EDMS 03/19 20:41 Order name: Phosphorus EDMS 03/19 16:08 Order name: CT Abd/Pelvis - IV Contrast Only; Complete Time: 18:21 rn 03/19 16:08 Order name: IV Saline Lock; Complete Time: 16:29 rn 03/19 16:08 Order name: Labs collected and sent; Complete Time: 16:29 rn 03/19 19:04 Order name: [place]ette; Complete Time: 19:25 rn Administered Medications: 16:29 Drug: NS 0.9% IV 1000 ml IV at 1 bolus Per protocol; to be given as a bolus over 60 ko1 minutes Route: IV; Rate: 1 bolus; Site: right antecubital; 17:34 Follow up: Response: No adverse reaction; IV Status: Completed infusion; IV Intake: ko1 1000ml 18:29 Drug: NS 0.9% IV 1000 ml IV at 1000 ml once; to be given as a bolus over 60 minutes ko1 Route: IV; Rate: 1000 ml; Site: right antecubital; 20:53 Follow up: IV Status: Completed infusion; IV Intake: 1000ml vc1 Disposition Summary: 03/19/24 19:09 Hospitalization Ordered Notes: Hospitalization Status: Observation rn Provider: Talha Duke rn [facility] rn Condition: Stable rn Problem: new rn Symptoms: have improved rn Bed/Room Type: Standard rn Room Assignment: 230(03/19/24 20:50) kmf Diagnosis - Dehydration rn - Diarrhea, unspecified rn - Muscle weakness (generalized) rn Forms: - Medication Reconciliation Form rn - SBAR form rn - Leadership Thank You Letter rn Signatures: Dispatcher [employer] Dennis Trent MD MD rn Oliver, Kathy RN RN ko1 Blanka Gutierrez RN RN me1 Bridget Polo Karyn Tapia RN vc1 Corrections: (The following items were deleted from the chart) 20:50 19:09 audie ortega
--- NOTE | 2024-03-19 20:27 | P.HP ---
Certification for Inpatient Patient admitted to: Inpatient With expected LOS: >2 Midnights Practitioner: I am a practitioner with admitting privileges, knowledge of patient current condition, hospital course, and medical plan of care. Services: Services provided to patient in accordance with Admission requirements found in Title 42 Section 412.3 of the Code of Federal Regulations Patient History Date of Service: 03/19/24 Reason for admission: Dizziness History of Present Illness: 79 yrs old Female with past medical history of arthritis, fibromyalgia, hyperlipidemia, restless leg syndrome, presents with complaints of Dizziness, and dehydration. Symptoms started few days ago and has been progressively getting worse. Patient is a poor historian hence most of the history is obtained from the chart review and also talking to the ER physician.The patient has not experienced similar symptoms in the past. Caregiver reports diarrhea for several days, has problem with chronic constipation so takes laxatives frequently. Nonbloody. No fever or chills. Denies any nausea or vomiting . She felt lightheaded and dizzy upon changing the position and was brought to ER Patient was assessed in the ER was admitted for further management of hyponatremia Allergies morphine Allergy (Intermediate, Verified 12/27/17 20:15) Hives adhesive tape Allergy (Verified 12/27/17 20:15) Rash hydrocodone Allergy (Verified 12/27/17 20:15) Hives/Rash Home medications list reviewed: Yes Home Medications: Ibuprofen 3 tab PO BEDTIME 12/27/17 Fluoxetine HCl [Prozac] 10 mg PO DAILY 08/02/19 Multivitamin/Iron/Folic Acid [Centrum Women Tablet] 1 tab PO DAILY 08/02/19 - Past Medical/Surgical History Diabetic: No Past Medical History: Reviewed- Non-Contributory -: Hyperlipidemia -: Fibromyalgia -: Arthritis -: Restless leg syndrome Past Surgical History: Reviewed- Non-Contributory -: Hysterectomy in 1972 -: Back SX -: Inguinal hernia repair -: wrist surgery -: fusion in neck surgery july 2017 -: appendectomy - Family History Mother -: Cancer Notes: of Pancreatic cancer Father -: Heart disease Notes: of a heart attack at about age 65 - Social History Smoking Status: Never smoker Alcohol use: Yes CD- Drugs: No Caffeine use: Yes Review of Systems 10-point ROS is otherwise unremarkable Physical Examination - Vital Signs Temperature: 97.6 F Blood Pressure: 136/64 Pulse: 54 Respirations: 18 Pulse Ox (%): 94 - Physical Exam General: Alert, Cooperative, Mild distress HEENT: Atraumatic, Normocephalic Neck: Supple Respiratory: Clear to auscultation bilaterally, Normal air movement Cardiovascular: Regular rate/rhythm, Normal S1 S2 Capillary refill: <2 Seconds Gastrointestinal: Soft and benign, W/out hepatosplenomegaly Musculoskeletal: No clubbing Integumentary: No rashes Neurological: Other (Alert, Awake) Lymphatics: No axilla or inguinal lymphadenopathy - Studies Laboratory Data (last 24 hrs) 03/19/24 03/19/24 16:25 16:25 WBC 5.80 Hgb 14.2 Hct 41.0 Plt Count 210 Sodium 128 L Potassium 4.5 BUN 13 Creatinine 0.89 Glucose 134 H Total Bilirubin 0.6 AST 21 ALT 26 Alkaline Phosphatase 99 Lipase 29 Assessment and Plan - Plan Hyponatremia Started on IV normal saline Monitor electrolytes and replace accordingly Dehydration Patient had multiple episodes of diarrhea CT abdomen pelvis findings noted with no acute changes Arthritis Hyperlipidemia Fibromyalgia Restless leg Syndrome Continue home medications and titrate as needed GI/DVT prophylaxis Advanced directive full code Discharge Plan: Home Plan to discharge in: 48 Hours - Advance Directives Does patient have a Living Will: No Does patient have a Durable POA for Healthcare: No - Code Status/Comfort Care Code Status: Full Code Time Spent Managing Pts Care (In Minutes): 49
[2024-03-19] MEDS ORDERED: ONDANSETRON 4 MG/2 ML VIAL IV PRN (20:37)
[2024-03-19] MEDS ORDERED: ACETAMINOPHEN 325 MG TABLET PO PRN (20:37)
[2024-03-19 21:49] VITALS: BMI 23.0
[2024-03-19] MEDS: NA CHLORIDE 0.9% 1,000 ML IV SCH (22:32)
[2024-03-20 05:44] LABS: Absolute Monocytes 0.4 K/uL (0.1-1.3); Absolute Neutrophil 2.4 K/uL (1.8-8.0); Basophils % 0.5 % (0-1.3); Eosinophils % 0.5 % (0-4.4); Hematocrit 38.3 % (36.0-45.0); Hemoglobin 13.1 g/dL (12.0-15.0); Lymphocytes % 26.7 % (15.3-44.8); MCH 30.3 pg (27.0-35.0); MCHC 34.1 g/dL (32.0-36.0); MCV 88.8 fL (80-100); MPV 8.3 fL (7.6-11.3); Monocytes % 11.5 % (3.3-12.3); Neutrophils % 60.8 % (41.7-73.7); Nucleated Red Blood Cells % 0.1 % (0-0); Platelets 190 thou/uL (152-406); RBC Red Blood Cell Count 4.32 M/uL (3.86-4.86); Red Cell Distribution Width 12.9 % (12.1-15.2)
[2024-03-20 06:02] LABS: Albumin/Globulin Ratio 1.3 (1.1-1.8); Anion Gap 7.7 mEq/L (5.0-15.0); Bilirubin Total 0.5 mg/dL (0.2-1.0); Globulin 2.4 g/dL (2.3-3.5); Magnesium 2.1 mg/dL (1.6-2.4); Phosphorus 2.6 mg/dL (2.5-4.9); Potassium 3.7 mEq/L (3.5-5.1); Protein, Total 5.4 g/dL (6.4-8.2)
[2024-03-20] MEDS ORDERED: LOPERAMIDE HCL 2 MG CAPSULE PO PRN (07:14)
[2024-03-20 08:18] VITALS: O2SAT 100
[2024-03-20] MEDS: FLUOXETINE 10 MG CAP PO SCH (09:00)
[2024-03-20] MEDS: MULTIVITAMIN TAB PO SCH (09:44)
[2024-03-20] MEDS: ENOXAPARIN 40 MG/0.4 ML SQ SCH (09:46)
[2024-03-20] MEDS: POTASSIUM CL SA 10 MEQ TAB PO ONE (09:46)
--- NOTE | 2024-03-20 10:40 | P.PN ---
Subjective Date of Service: 03/20/24 Chief Complaint: Dizziness Subjective: Improving Patient reports this morning she is feeling better, no more diarrhea, but poor oral intake denied any nausea and vomiting or abdominal pain. Review of Systems Other: Consitutional; fever(-), chills (-), rigor(-), night sweat(-), unintentional weight loss(-), malaise (+) HEENT; diplopia (-), rhinorrhea (-), epistaxis (-), otorrhea (-), otalgia (-) Respiratory; shortness of breath (-), wheezing (-), cough (-), sputum (-), pleuritic chest pain (-) Cardiovascular; chest pain (-), peripheral edema (-), paroxysmal nocturnal dyspnea (-), orthopnea (-) Gastrointestinal; nausea (-), vomiting (-), abdominal pain (-), diarrhea (-), constipation (-), melena (-), hematochezia (-) Genitourinary; urinary frequency (-), dysuria (-), urgency (-), flank pain (-), gross hematuria (-), incontinence (-) Skin; rash (-), pruritus (-) [employer]; headache (-), paresthesia (-), numbness (-), paralysis (-) Physical Examination - Vital Signs Temperature: 97.6 F Blood Pressure: 137/61 Pulse: 56 Respirations: 14 Pulse Ox (%): 95 - Physical Exam Other Physical/Emotional Findings: - Physical Exam. General: Fragile, not acutely ill looking, in no apparent distress,. HEENT: Normocephalic, atraumatic, nonicteric sclera, nonanemic conjunctive. Neck: Supple, without JVD or goiter or thyroid mass. Respiratory: Normal breathing effort, clear to auscultation bilaterally, no crackles no wheezing or rhonchi. Cardiovascular: Regular rate and rhythm, S1, S2 normal, no murmur no gallop. Gastrointestinal: Normal bowel sounds, nondistended, nontender, No ascites, , No masses, no hepatosplenomegaly. Extremities : No clubbing, No peripheral edema,. Integumentary: No rashes, petechia, suspected lesions. Lymphatics: No axilla or cervical lymphadenopathy. Neurology; alert awake oriented x3, no focal neurologic deficit, normal affection . mood and behavior. - Studies Laboratory Data (last 24 hrs) 03/19/24 03/19/24 16:25 16:25 WBC 5.80 Hgb 14.2 Hct 41.0 Plt Count 210 Sodium 128 L Potassium 4.5 BUN 13 Creatinine 0.89 Glucose 134 H Total Bilirubin 0.6 AST 21 ALT 26 Alkaline Phosphatase 99 Lipase 29 Assessment And Plan - Plan 79 yrs old Female with past medical history of arthritis, fibromyalgia, hyperli pidemia, restless leg syndrome, presents with complaints of Dizziness, and dehydration. Symptoms started few days ago and has been progressively getting worse. Caregiver reports diarrhea for several days, has problem with chronic constipation so takes laxatives frequently. Denies any nausea or vomiting . She felt lightheaded and dizzy upon changing the position and was brought to ER #1 presumed hypovolemic hyponatremia secondary to #2 Response to normal saline infusion, serum sodium went to 139 from 128, I will start saline infusion to prevent osmotic myelinolysis syndrome. No serum osmolality or urine osmolality or urine sodium done before normal saline infusion #2 laxative induced diarrhea in underlying chronic constipation Will order Imodium as needed, hold all her laxative DVT prophylaxis; enoxaparin subcu Disposition discharge home later today or tomorrow
[2024-03-20] MEDS: PNEUMOCOCCAL VACCINE 0.5 ML IMVAC ONE (12:00)
[2024-03-20 17:53] VITALS: BP 159/67; TEMP 97.9
[2024-03-20] MEDS ORDERED: IBUPROFEN 600 MG TAB PO SCH (21:00)
== END 2024-03-20 18:28 | disposition left against medical advice (07) | DRG 641 ==
LOC: ER 15:52 → 2ND 20:37
PROVIDERS: ADMIT Family Medicine; ATTEND Internal Medicine
DX: E87.1 Hypo-osmolality and hyponatremia (principal); K52.1 Toxic gastroenteritis and colitis; E86.0 Dehydration; K59.09 Other constipation; M79.7 Fibromyalgia; E78.00 Pure hypercholesterolemia, unspecified; M19.90 Unspecified osteoarthritis, unspecified site; G25.81 Restless legs syndrome; T47.4X5A Adverse effect of other laxatives, initial encounter; Z88.5 Allergy status to narcotic agent; Z90.49 Acquired absence of other specified parts of digestive tract; Z90.710 Acquired absence of both cervix and uterus; Z87.891 Personal history of nicotine dependence; Z91.048 Other nonmedicinal substance allergy status; Z79.899 Other long term (current) drug therapy
CPT/HCPCS: 36415; 51702; 74177; 80053; 81001; 82947; 83690; 83735; 84100; 85025; 96360; 96361; 99285; J1650; J7030; Q9967